=== PATIENT | female | born 1970 | race Caucasian/White ===

== ENCOUNTER 2023-02-26 17:46 | Inpatient (IN) ==
--- NOTE | 2023-02-26 18:52 | Emergency Department Note ---
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 Patient evidently was recently in rehab in the [facility]. Due to volume and acuity in the emergency room today unfortunately there was some wait until the patient could be evaluated in a treatment room. Evaluated the patient in room a 11 sister at bedside. Staff including security assisted with moving the patient from wheelchair to bed. Primary history from patient's sister who is with her. Sister reports the patient was since beginning January and [facility] rehab but they did not do a lot of rehab with her. Reportedly was ambulating with a cane but sent home a day or 2 ago and has been able to do much since then. Some increased edema of the legs reported. There is reported compliance with her medications including her blood thinners. Some dark discoloration to the bilateral lower legs is reported as well. Home health visited today and noted the patient had some increased respiratory issues at times and belly breathing and thus recommended she come to the ER for evaluation. Is not been to this hospital before. At times her breathing is okay other times not. Last several days has had a bit of cough or cold symptoms and was given a Z-Heriberto which she has been taking. There has been some COVID exposure at [facility] but evidently this was recently tested and -3 days ago. No falls reported. Some pain in the left foot knee although little bit in the right side to seems possibly more chronic. Again no trauma. PAST MEDICAL HISTORY: As noted above MEDICATIONS: Reviewed medication list the patient presents with from her recent stay and discharged from rehab in [place] SOCIAL HISTORY: Resides at home with support from sister PHYSICAL EXAM: GENERAL: alert and oriented in no acute distress on stretcher Head: Atraumatic with healed prior surgical signs EYES: No injection, discharge or icterus. NECK: Trachea midline. Supple. ENT: Mucous membranes pink and moist. LUNGS: Airway patent. No retractions. Breath sounds clear with good air entry bilaterally. HEART: Regular rate and rhythm. No chest wall tenderness ABDOMEN: Soft and non-tender, without guarding or rebound. SKIN: Acyanotic, warm, dry, without rashes EXTREMITIES: 2-3+ edema of the lower extremities with some slight reddish discoloration but no significant weeping noted. Some chronic healed surgical wounds to the left upper hand/arm NEUROLOGICAL: No focal deficits. No aphasia. No facial droop or slurred speech. Sensation to gross touch normal EK bpm normal sinus rhythm. No PVC or PAC. No acute ST segment elevation or depression with QTc of 454 CONTINUOUS CARDIAC MONITORING: was ordered and showed a heart rate of 80s bpm in normal sinus rhythm 1 view chest x-ray per my interpretation: Some cardiomegaly without pleural effusion but some mild pulmonary vascular congestion without pulmonary edema. No free air under the diaphragm. 2 view left foot x-ray per my interpretation: No evidence of fracture or dislocation 2 view left knee x-ray per my interpretation: No evidence of fracture or dislocation. Some soft tissue swelling Patient's laboratory studies and imaging reviewed. Differential includes Reactive airway disease, pneumonia, pneumothorax, COPD, CHF, infections, cardiac ischemia, pulmonary embolism, musculoskeletal, gastrointestinal, as well as other pathologies. IMPRESSION/MEDICAL DECISION MAKING: Patient with multiple medical problems. Here more with some breathing issues but not ambulating well and recent discharge from rehab. Does not sound like she can do well at home at this time without additional support but family and patient were concerned about the intermittent breathing issues. Not significantly hypoxic, febrile, or tachycardic upon arrival. Is on Eliquis and reported compliance lowers my suspicion for acute PE/VTE. Does have significant edema of the lower legs and with a history of CHF and use of Lasix and question more fluid overload. Does have some URI symptoms reported as well with recent exposure at the prior facility with COVID. Respiratory viral panel ordered. 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 Benign abdomen. Reported some pain in the left knee and foot but no significant trauma and x-rays obtained here but I doubt of traumatic etiology. No significant new focal neurological deficits reported. Chest x-ray possibly some pulmonary vascular congestion and cardiomegaly but no significant effusions or evidence of pneumonia or pneumothorax. Blood work here without significant leukocytosis. Mild anemia hemoglobin of 10 but unsure of exact baseline. Normal platelet count. No severe electrolyte abnormal signs of renal dysfunction. BNP not severely elevated. Troponin 3.1. No signs of hepatitis. Strep PCR negative. Respiratory viral panel returns negative for COVID and flu but positive for rhino/enterovirus. Likely explains her symptoms. Given these findings discussed with patient and family further care here. Given some additional Lasix to help with the leg edema but BNP not elevated and doubt this is truly CHF. Given evening dose of Vimpat. Discussion given her ambulatory dysfunction with increased weakness although not hypoxic will bring into the hospital for further care and likely need for placement. Hospitalist contacted. DIAGNOSIS: Shortness of breath, ambulatory dysfunction/weakness, leg swelling, rhino/enterovirus DISPOSITION: Hospitalist will evaluate Patient was agreeable with this plan. Past Med/Surg History Social History Smoking Status: Never smoker Feels Safe at Home: Yes Allergies Allergies Allergy/AdvReac Type Severity Reaction Status Date / Time Penicillins Allergy Unknown CAN'T Verified 02/26/23 21:00 REMEMBER phenytoin [From Dilantin] AdvReac Intermediate REALLY BAD Verified 02/26/23 21:00 HEADACHE Home Meds Home Medications Medication Instructions Recorded Confirmed acetaminophen 325 mg tablet 650 mg PO Q6H PRN PAIN/FEVER 02/26/23 02/26/23 (Tylenol) apixaban 5 mg tablet (Eliquis) 5 mg PO BID 02/26/23 02/26/23 aspirin 81 mg tablet,delayed 81 mg PO DAILY 02/26/23 02/26/23 release azithromycin 250 mg tablet 250 mg PO DAILY 02/26/23 02/26/23 folic acid 1 mg tablet 1 mg PO DAILY 02/26/23 02/26/23 furosemide 40 mg tablet 40 mg PO DAILY 02/26/23 02/26/23 lacosamide 100 mg tablet 100 mg PO BID 02/26/23 02/26/23 levothyroxine 25 mcg tablet 25 mcg PO DAILY 02/26/23 02/26/23 multivitamin 1 tab PO QAM 02/26/23 02/26/23 oxybutynin chloride 15 mg 15 mg PO DAILY 02/26/23 02/26/23 tablet,extended release 24 hr pantoprazole 40 mg tablet,delayed 40 mg PO DAILY 02/26/23 02/26/23 release potassium chloride 10 mEq 10 meq PO DAILY 02/26/23 02/26/23 capsule,extended release sennosides 8.6 mg tablet (Senokot) 17.2 mg PO HS 02/26/23 02/26/23 Results & Data (ED) Vital Signs Vital Signs - 24 hr 02/26/23 17:58 02/26/23 20:45 02/26/23 20:45 Temperature 36.4 C L Temperature Source Temporal Artery Scan Pulse Rate 94 H 87 87 Pulse Rhythm Regular Pulse Strength Normal Respiratory Rate 20 20 Respiratory Effort / Characteristics Non-Labored Spontaneous Respiratory Depth Normal Blood Pressure 127/77 133/84 Blood Pressure Mean 93 100 Pulse Oximetry 97 95 Oxygen Delivery Method Room Air Room Air Sepsis Recent Fever Within 48 Hours No Sepsis New/Unexplained Change in Mental Status No Sepsis Action Taken by Nursing No Action Required 02/26/23 21:00 02/26/23 21:05 02/26/23 21:05 Temperature Temperature Source Pulse Rate 87 Pulse Rhythm Pulse Strength Respiratory Rate 24 Respiratory Effort / Characteristics Respiratory Depth Blood Pressure Blood Pressure Mean Pulse Oximetry 95 96 96 Oxygen Delivery Method Room Air Room Air Room Air Sepsis Recent Fever Within 48 Hours Sepsis New/Unexplained Change in Mental Status Sepsis Action Taken by Nursing 02/26/23 21:27 02/26/23 21:30 02/26/23 22:00 Temperature Temperature Source Pulse Rate 84 86 83 Pulse Rhythm Pulse Strength Respiratory Rate 21 22 20 Respiratory Effort / Characteristics Respiratory Depth Blood Pressure 136/98 134/96 117/74 Blood Pressure Mean 110 108 88 Pulse Oximetry 95 92 93 Oxygen Delivery Method Room Air Room Air Room Air Sepsis Recent Fever Within 48 Hours Sepsis New/Unexplained Change in Mental Status Sepsis Action Taken by Nursing 02/26/23 22:00 02/26/23 22:30 02/26/23 23:00 Temperature Temperature Source Pulse Rate 86 82 Pulse Rhythm Pulse Strength Respiratory Rate 19 17 Respiratory Effort / Characteristics Respiratory Depth Blood Pressure 117/74 116/73 107/70 Blood Pressure Mean 101 87 82 Pulse Oximetry 93 94 Oxygen Delivery Method Room Air Room Air Sepsis Recent Fever Within 48 Hours Sepsis New/Unexplained Change in Mental Status Sepsis Action Taken by Nursing Laboratory Data 02/26/23 21:06 02/26/23 21:06 Lab Results 02/26/23 02/26/23 02/26/23 Range/Units 21:06 21:11 21:22 WBC 7.29 (4.8-10.8) K/ul RBC 3.94 L (4.20-5.40) M/uL Hgb 10.0 L (12.0-16.0) g/dl Hct 33.9 L (37.0-47.0) % MCV 86.0 (80.0-100.0) fL MCH 25.4 (25.0-34.0) pg MCHC 29.5 L (32.0-36.0) g/dL RDW Std Deviation 56.5 H (36.4-46.3) fL RDW Coeff of Neo 18.0 H (11.5-14.5) % Plt Count 303 (130-400) K/uL MPV 11.3 (9.4-12.4) fL Immature Gran % (Auto) 0.5 % Neut % (Auto) 69.0 % Lymph % (Auto) 23.5 % Hawkins % (Auto) 4.0 % Eos % (Auto) 2.7 % Baso % (Auto) 0.3 % Neut # (Auto) 5.03 (1.40-6.50) K/uL Lymph # (Auto) 1.71 (1.20-3.40) K/uL Hawkins # (Auto) 0.29 (0.11-0.59) K/uL Eos # (Auto) 0.20 (0.00-0.50) K/uL Baso # (Auto) 0.02 (0.00-0.20) K/uL Immature Gran # (Auto) 0.04 (0.01-0.20) K/uL PT 10.6 (9.0-12.0) Seconds INR 1.0 (0.9-1.1) Sodium 144 (136-145) mmol/L Potassium 3.6 (3.5-5.1) mmol/L Chloride 107 (98-107) mmol/L Carbon Dioxide 31 (21-32) mmol/L Anion Gap 6 (3-11) BUN 15 (6-23) mg/dl Creatinine 0.63 (0.6-1.2) mg/dl Est Cr Clr Drug Dosing Not Reportable Est GFR ( Amer) 117.9 ml/min Est GFR (Non-Af Amer) 101.7 ml/min BUN/Creatinine Ratio 23.8 H (10-20) Glucose 100 H (70-99(Fasting)) mg/dl Calcium 9.2 (8.6-10.3) mg/dl Magnesium 2.0 (1.7-2.4) mg/dl Total Bilirubin 0.4 (0.2-1.0) mg/dl AST 15 (13-39) U/L ALT 21 (7-52) U/L Alkaline Phosphatase 68 (34-104) U/L Troponin I High Sens 3.1 (0-14) pg/ml B-Natriuretic Peptide 12 (0-100) pg/ml Total Protein 7.7 (6.0-8.3) gm/dl Albumin 3.7 (3.4-5.0) gm/dl Globulin 4.0 (2.5-4.0) gm/dl Albumin/Globulin Ratio 0.9 (0.9-2) TSH 6.107 H (0.300-4.500) uIu/ml Free T4 1.00 (0.61-1.60) ng/dl Adenovirus (PCR) Not Detected (NotDetected) B. pertussis DNA (PCR) Not Detected (NotDetected) B.parapertussis DNA PCR Not Detected (NotDetected) C. pneumoniae DNA (PCR) Not Detected (NotDetected) Coronavirus OC43 (PCR) Not Detected (NotDetected) Coronavirus HKU1 (PCR) Not Detected (NotDetected) Coronavirus 229E (PCR) Not Detected (NotDetected) SARS-CoV-2 (PCR) Not Detected (NotDetected) Coronavirus NL63 (PCR) Not Detected (NotDetected) Human Metapneumovir PCR Not Detected (NotDetected) Influenza Type A (PCR) Not Detected (NotDetected) Influenza Type B (PCR) Not Detected (NotDetected) M. pneumoniae (PCR) Not Detected (NotDetected) Parainfluenza 1 (PCR) Not Detected (NotDetected) Parainfluenza 2 (PCR) Not Detected (NotDetected) Parainfluenza 3 (PCR) Not Detected (NotDetected) Parainfluenza 4 (PCR) Not Detected (NotDetected) RSV (PCR) Not Detected (NotDetected) Entero/Rhino (PCR) DETECTED A* (NotDetected) Group A Strep (PCR) NOT DETECTED (NotDetected) Administered Medications Discontinued Medications Lacosamide (Lacosamide 50 Mg Tablet) 100 mg PO ONCE ONE Stop: 02/26/23 22:19 Last Admin: 02/26/23 23:20 Dose: 100 mg Documented By: MARIELENA Discharge Plan Visit Data Chief Complaint: Weakness ED Provider: Bret Black Discharge Problem: Rhinovirus, Breathlessness, Leg swelling, Chronic anticoagulation, History of epilepsy, History of CHF (congestive heart failure), Ambulatory dysfunction Patient Disposition: Being Evaluated by Hospitalist Forms Stand Alone Forms: [facility] Prescriptions Prescriptions: No Action multivitamin Tablet 1 tab PO QAM furosemide 40 mg tablet 40 mg PO DAILY sennosides [Senokot] 8.6 mg Tablet 17.2 mg PO HS potassium chloride 10 mEq Capsule, Extended Release 10 meq PO DAILY acetaminophen [Tylenol] 325 mg Tablet 650 mg PO Q6H PRN (Reason: PAIN/FEVER) oxybutynin chloride 15 mg Tablet Extended Release 24hr 15 mg PO DAILY azithromycin 250 mg tablet 250 mg PO DAILY Rx Instructions: STARTED 02/22/23 FOR 6 DAYS. aspirin 81 mg Tablet,Delayed Release (Dr/Ec) 81 mg PO DAILY levothyroxine 25 mcg tablet 25 mcg PO DAILY pantoprazole 40 mg Tablet,Delayed Release (Dr/Ec) 40 mg PO DAILY folic acid 1 mg Tablet 1 mg PO DAILY lacosamide 100 mg tablet 100 mg PO BID Eliquis 5 mg Tablet 5 mg PO BID Referrals Referrals: PCP,NO [Physician] -
[2023-02-26 21:46] LABS: Basophils # (auto) 0.02 K/uL (0.00-0.20); Basophils % (auto) 0.3 %; Eosinophils % (auto) 2.7 %; Hematocrit (blood only) 33.9 % (37.0-47.0); Immature Granulocytes # (auto) 0.04 K/uL (0.01-0.20); Immature Granulocytes % (auto) 0.5 %; Lymphocytes # (auto) 1.71 K/uL (1.20-3.40); Lymphocytes % (auto) 23.5 %; Mean Corpuscular Hemoglobin 25.4 pg (25.0-34.0); Mean Corpuscular Hgb Conc 29.5 g/dL (32.0-36.0); Mean Platelet Volume 11.3 fL (9.4-12.4); Monocytes # (auto) 0.29 K/uL (0.11-0.59); Neutrophils # (auto) 5.03 K/uL (1.40-6.50); Platelet Count 303 K/uL (130-400); RDW Standard Deviation 56.5 fL (36.4-46.3); Red Blood Count 3.94 M/uL (4.20-5.40); White Blood Count 7.29 K/ul (4.8-10.8)
[2023-02-26 21:53] LABS: Alanine Aminotransferase 21 U/L (7-52); Albumin Globulin Ratio 0.9 (0.9-2); Albumin Level 3.7 gm/dl (3.4-5.0); Alkaline Phosphatase 68 U/L (34-104); Anion Gap 6 (3-11); Aspartate Aminotransferase 15 U/L (13-39); BUN Creatinine Ratio 23.8 (10-20); Bilirubin,Total 0.4 mg/dl (0.2-1.0); Blood Urea Nitrogen 15 mg/dl (6-23); Calcium 9.2 mg/dl (8.6-10.3); Carbon Dioxide 31 mmol/L (21-32); Chloride 107 mmol/L (98-107); Est GFR (African American) 117.9 ml/min; Est GFR (Non-African American) 101.7 ml/min; Glucose 100 mg/dl (70-99(Fasting)); Potassium 3.6 mmol/L (3.5-5.1); Sodium 144 mmol/L (136-145); Total Protein 7.7 gm/dl (6.0-8.3)
[2023-02-26 21:59] LABS: Troponin I High Sensitivity 3.1 pg/ml (0-14)
[2023-02-26 22:03] LABS: Prothrombin Time 10.6 Seconds (9.0-12.0)
[2023-02-26 22:08] LABS: Thyroid Stimulating Hormone 6.107 uIu/ml (0.300-4.500)
[2023-02-26] MEDS ORDERED: LACOSAMIDE 50 MG TABLET PO ONE (22:18)
[2023-02-26 22:37] LABS: Adenovirus PCR Not Detected (NotDetected); Bordetella parapertussis PCR Not Detected (NotDetected); Bordetella pertussis PCR Not Detected (NotDetected); Chlamydia pneumoniae PCR Not Detected (NotDetected); Coronavirus 229E PCR Not Detected (NotDetected); Coronavirus CoV-2 (COVID19)PCR Not Detected (NotDetected); Coronavirus HKU1 PCR Not Detected (NotDetected); Coronavirus NL63 PCR Not Detected (NotDetected); Coronavirus OC43PCR Not Detected (NotDetected); Human Metapneumovirus PCR Not Detected (NotDetected); Influenza A PCR Not Detected (NotDetected); Influenza B PCR Not Detected (NotDetected); Mycoplasma pneumoniae PCR Not Detected (NotDetected); Parainfluenza Virus 1 PCR Not Detected (NotDetected); Parainfluenza Virus 2 PCR Not Detected (NotDetected); Parainfluenza Virus 3 PCR Not Detected (NotDetected); Parainfluenza Virus 4 PCR Not Detected (NotDetected); Respiratory Syncytial VirusPCR Not Detected (NotDetected)
[2023-02-26 22:44] LABS: Rhinovirus/Enterovirus PCR DETECTED (NotDetected)
[2023-02-26] MEDS ORDERED: FUROSEMIDE 40 MG/4 ML VIAL IV ONE (23:23)
--- NOTE | 2023-02-27 00:53 | History & Physical Report ---
Date of Service February 27, 2023 Assessment & Plan (1) Shortness of breath: Plan: 52 year old female admitted for entero/rhinovirus, generalized weakness, possible fluid overload. -Patient with sore throat, increased shortness of breath since being in rehab fa cility, more pronounced past few days. -CBC with hgb 10.0 - unknown baseline - WBC count unremarkable. -CMP, PT/INR, troponin unremarkable. TSH 6.107, Free T4 WNL. -CXR without any overt pulmonary edema or acute signs of infection. -Has history of CHF according to record patient gave however patient without any recollection. -Will order echo to check for CHF. Likely current presentation may be combination of viral induced and fluid overload. -Given Lasix 40mg IV in the ER. Trend renal function panel to see if patient does well with diuresis. -Pt relayed had wheezing however not evident on physical exam - can trial duoneb if patient feels wheezing or short of breath. -Vitals have remained stable, continue to monitor. (2) Bilateral leg edema: Plan: -As above, history of congestive HF listed in patient's history on record sheet she brought in. -Bilateral lower extremities edematous but without pitting edema, may be secondary to chronic venous changes and lymphedema -Less likely infectious given bilateral distribution. -Given Lasix 40mg IV in the ER, aguilar catheter placed due to history of incontinence. Will continue qAM for now and see if patient improves. -Check echo. -Monitor I&O's. (3) Generalized weakness: Plan: -Patient recently in rehab, relayed discharged too soon due to insurance coverage issue. -Consulted PT/OT eval and treat. -Consulted case management to help with insurance clarity. (4) History of CHF (congestive heart failure): Plan: Same plan as above. Patient listed to take 40mg Lasix at home daily. (5) GERD without esophagitis: Plan: -Continue home pantoprazole. (6) Hypothyroidism: Plan: -continue home levothyroxine. (7) Chronic anticoagulation: Plan: -Continue home Eliquis for history of DVT. (8) Localization-related symptomatic epilepsy and epileptic syndromes with complex partial seizures, not intractable, without status epilepticus: Plan: -Continue home lacosamide. Plan F/E/N/GI: Heart healthy DVT: Eliquis Code status: Full Dispo: Telemetry. History of Present Illness Chief Complaint: Shortness of breath Primary Care Provider: Ilsa Braswell Cassy is a 52 year old female with past medical history of benign brain tumor s/p resection with seizures, VTE, hypothyroidism, CHF, GERD w/o esophagitis, generalized muscle weakness coming into the ER for shortness of breath, weakness, and leg swelling. Patient states that she was just at [facility] in [place] and while there had developed a sore throat and some increased difficulty with breathing. She was discharged from the rehab facility 2 days ago. She states that she was discharged when she lost her insurance coverage as she was not able to walk very well when discharged and could barely walk with a cane. The sore throat has persisted and she's had increased shortness of breath and some mild increase in swelling in the bilateral lower extremities. She usually wears compression stockings for these. She has not had any fevers, chills, chest pain, diarrhea, or dysuria. She does have a history of urinary incontinence. She denies any history of previous cardiac issues or lung disease. In the ER her Hgb is 10.0, WBC 7.29, CMP, PT, INR unremarkable. respiratory biofire was positive for entero/rhinovirus. CXR showed mild cardiomegaly, no acute processes in the lungs per my read. She was given a dose of Lasix 40mg IV in the ER as well as a dose of her Lacosamide anti-seizure medication. Allergies Allergy/AdvReac Type Severity Reaction Status Date / Time Penicillins Allergy Unknown CAN'T Verified 02/26/23 21:00 REMEMBER phenytoin [From Dilantin] AdvReac Intermediate REALLY BAD Verified 02/26/23 21:00 HEADACHE Home Medications Medication Instructions Recorded Confirmed Type acetaminophen 325 mg tablet 650 mg PO Q6H PRN PAIN/FEVER 02/26/23 02/26/23 History (Tylenol) apixaban 5 mg tablet (Eliquis) 5 mg PO BID 02/26/23 02/26/23 History aspirin 81 mg tablet,delayed 81 mg PO DAILY 02/26/23 02/26/23 History release azithromycin 250 mg tablet 250 mg PO DAILY 02/26/23 02/26/23 History folic acid 1 mg tablet 1 mg PO DAILY 02/26/23 02/26/23 History furosemide 40 mg tablet 40 mg PO DAILY 02/26/23 02/26/23 History lacosamide 100 mg tablet 100 mg PO BID 02/26/23 02/26/23 History levothyroxine 25 mcg tablet 25 mcg PO DAILY 02/26/23 02/26/23 History multivitamin 1 tab PO QAM 02/26/23 02/26/23 History oxybutynin chloride 15 mg 15 mg PO DAILY 02/26/23 02/26/23 History tablet,extended release 24 hr pantoprazole 40 mg tablet,delayed 40 mg PO DAILY 02/26/23 02/26/23 History release potassium chloride 10 mEq 10 meq PO DAILY 02/26/23 02/26/23 History capsule,extended release sennosides 8.6 mg tablet (Senokot) 17.2 mg PO HS 02/26/23 02/26/23 History Past Med/Surg History Social History Smoking Status: Never smoker Second Hand Exposure: No; Do You Dip or Chew Tobacco: No; Hx Alcohol Use: No Hx Substance Use: No Preferred Language: Swiss Communication Ability: Effective Residential Program Coordinator Required: No Beliefs That Will Affect Care: None Current Living Situation: Alone Feels Safe at Home: Yes Assistive Devices: Cane and Glasses Review of Systems Review of Systems: As per HPI. Physical Exam Constitutional: WD/WN, vitals as above Eyes: PERRL, conjunctivae normal, anicteric sclerae Respiratory: normal respiratory effort, lungs clear to auscultation Cardiovascular: Rate/Rhythm: regular rate and regular rhythm Heart Sounds: normal S1 and normal S2 Peripheral pulses 2+ bilaterally. No pitting edema however increased size of legs. Gastrointestinal (Abdomen): normal bowel sounds, soft, nontender, no hepatosplenomegaly Skin: erythema around bilateral legs below the shins to the ankles, appears chronic venous stasis changes although blanchable. Psychiatric: A+Ox3, euthymic affect Results & Data Results & Data Vital Signs (Past 12 Hours) Vital Signs Temp Pulse Resp BP Pulse Ox O2 Del Method 02/27/23 00:31 82 20 119/78 94 Room Air 02/27/23 00:00 85 24 131/80 02/26/23 23:30 84 23 123/84 02/26/23 23:00 82 17 107/70 94 Room Air 11/22/23 22:30 86 19 116/73 93 Room Air 02/26/23 22:00 117/74 02/26/23 22:00 83 20 117/74 93 Room Air 02/26/23 21:30 86 22 134/96 92 Room Air 02/26/23 21:27 84 21 136/98 95 Room Air 02/26/23 21:05 96 Room Air 02/26/23 21:05 96 Room Air 02/26/23 21:00 87 24 95 Room Air 02/26/23 20:45 87 20 133/84 95 Room Air 02/26/23 20:45 87 02/26/23 17:58 36.4 C L 94 H 20 127/77 97 Room Air Supervising Physician Co-Signing Physician Notes Attending addendum: I have physically seen this patient, have supervised the medical residents activities, and agree with the H&P unless as otherwise noted. Assessment and Plan: Shortness of breath/dyspnea on exertion/fluid overload- Status post recent admission at [facility] in [place] Was thought to have some fluid overload, and was given Lasix 40 mg IV in ED and Aguilar catheter was placed due to chronic urinary incontinence The patient will be admitted to telemetry for serial cardiac enzymes, serial EKG's, cardiac rhythm monitoring and a 2-D echocardiogram with Dopplers. Resume oral Lasix in the morning Symptoms are likely due to underlying general disability, and aggravation by enterovirus/rhinovirus infection General deconditioning and weakness- Consult PT/OT Would likely need referral to inpatient rehab Seizure disorder- Continue lacosamide DVT history- Continue apixaban Resident Activity Tracking Resident Involvement: Resident Care Provided Care Provided: Adult Hospital Medicine
[2023-02-27 01:34] LABS: Appearance Urine Clear (Clear); Bacteria Urine Automated Negative (Negative); Bilirubin Urine Negative (Negative); Blood Urine Negative (Negative); Color Urine Yellow; Epithelial Cell Urine Auto >30 /lpf (0-5); Glucose Urine UA Negative (Negative); Ketones Urine Negative (Negative); Leukocyte Esterase Urine Trace (Negative); Nitrite Urine Negative (Negative); Protein Urine Negative (Negative); RBC Urine Automated 0-4 /hpf (0-4); Specific Gravity Urine 1.021 (1.000-1.030); Urobilinogen Urine Negative (Negative)
[2023-02-27] MEDS ORDERED: ALBUT/IPRATROP 3MG/0.5MG NEB 3 ML VIAL NEB PRN (04:00)
[2023-02-27] MEDS ORDERED: ALBUTEROL 0.083% NEBU SOLN 3 ML VIAL NEB PRN (04:00)
[2023-02-27] MEDS ORDERED: ONDANSETRON INJ 2 MG/ML 2 ML VIAL IV PRN (04:00)
[2023-02-27] MEDS ORDERED: POLYETHYLENE (MIRALAX) 17 GM PACK PO PRN (04:00)
[2023-02-27 04:52] LABS: Basophils # (auto) 0.01 K/uL (0.00-0.20); Basophils % (auto) 0.1 %; Eosinophils # (auto) 0.24 K/uL (0.00-0.50); Eosinophils % (auto) 3.5 %; Hematocrit (blood only) 31.2 % (37.0-47.0); Hemoglobin 9.2 g/dl (12.0-16.0); Immature Granulocytes # (auto) 0.03 K/uL (0.01-0.20); Immature Granulocytes % (auto) 0.4 %; Lymphocytes # (auto) 1.89 K/uL (1.20-3.40); Lymphocytes % (auto) 27.8 %; Mean Corpuscular Hemoglobin 24.7 pg (25.0-34.0); Mean Corpuscular Hgb Conc 29.5 g/dL (32.0-36.0); Mean Corpuscular Volume 83.9 fL (80.0-100.0); Mean Platelet Volume 10.6 fL (9.4-12.4); Monocytes # (auto) 0.25 K/uL (0.11-0.59); Monocytes % (auto) 3.7 %; Neutrophils # (auto) 4.37 K/uL (1.40-6.50); Neutrophils % (auto) 64.5 %; Platelet Count 274 K/uL (130-400); RDW Coefficient of Variation 18.1 % (11.5-14.5); Red Blood Count 3.72 M/uL (4.20-5.40); White Blood Count 6.79 K/ul (4.8-10.8)
[2023-02-27] MEDS ORDERED: Patient's HEIGHT &/or WEIGHT Needed SCH (05:00)
[2023-02-27 05:04] LABS: Albumin Level 3.6 gm/dl (3.4-5.0); BUN Creatinine Ratio 24.2 (10-20); Calcium 9.3 mg/dl (8.6-10.3); Creatinine Clr Calc Pharmacy 120.9 ml/min; Est GFR (African American) 118.5 ml/min; Est GFR (Non-African American) 102.2 ml/min; Phosphorus 4.2 mg/dl (2.5-4.9); Potassium 3.3 mmol/L (3.5-5.1)
[2023-02-27] MEDS: LEVOTHYROXINE SODIUM 25 MCG TABLET PO SCH (07:07)
[2023-02-27] MEDS: OXYBUTYNIN CHLORIDE XL 5 MG TABCR PO SCH (08:50)
[2023-02-27] MEDS: ASPIRIN 81 MG ECTAB PO SCH (08:50)
[2023-02-27] MEDS: LACOSAMIDE 50 MG TABLET PO SCH ×2 (08:50→21:54)
--- NOTE | 2023-02-27 08:50 | XRay Report ---
XR chest 1V portable CLINICAL HISTORY: weak TECHNIQUE: Single frontal radiograph of the chest was obtained. Comparison: None available at the time of this dictation. FINDINGS: Exam is limited by underpenetration. Cardiomegaly is noted. The lungs are clear. No evidence of pleur al effusion or pneumothorax. IMPRESSION: No acute chest disease. ACT 112: Negative or not required by law. Electronically signed by: Mejia Moses M.D. 02/27/2023 8:49 AM
[2023-02-27] MEDS: APIXABAN 5 MG TABLET PO SCH ×2 (08:51→20:07)
[2023-02-27] MEDS: PANTOprazole 40 MG TAB PO SCH (08:51)
[2023-02-27] MEDS: POTASSIUM CHLORIDE 10 MEQ TABCR PO SCH (08:51)
[2023-02-27] MEDS: FOLIC ACID 1 MG TAB PO SCH (08:51)
[2023-02-27] MEDS ORDERED: POTASSIUM CHLORIDE CRTAB 20 MEQ TABCR PO STA (08:52)
[2023-02-27] MEDS ORDERED: FUROSEMIDE 40 MG/4 ML VIAL IV SCH (09:00)
[2023-02-27] MEDS ORDERED: LEVOTHYROXINE SODIUM 25 MCG TABLET PO SCH (09:00)
--- NOTE | 2023-02-27 09:23 | XRay Report ---
XR foot LT 2V CLINICAL HISTORY: pain TECHNIQUE: 3 views of the left foot were obtained. Comparison: None available at the time of this dictation. FINDINGS: No fractures are present. Degenerative changes are seen. Achilles and plantar enthesophytes are seen. Soft tissue swelling is seen about the foot. IMPRESSION: Degenerative changes without evidence of acute fracture. ACT 112: Negative or not required by law. Electronically signed by: Mejia Moses M.D. 02/27/2023 9:21 AM
--- NOTE | 2023-02-27 09:29 | XRay Report ---
XR knee LT 1 or 2V routine CLINICAL HISTORY: pain TECHNIQUE: 2 views of the left knee were obtained. Comparison: None available at the time of this dictation. FINDINGS: There is no evidence of an acute fracture. Joint spaces are well-preserved. No joint effusion is seen . A fabella is incidentally seen. IMPRESSION: No evidence of acute osseous injury. ACT 112: Negative or not required by law. Electronically signed by: Mejia oMses M.D. 02/27/2023 9:27 AM
--- NOTE | 2023-02-27 11:43 | Hospitalist Progress Note ---
Date of Service February 27, 2023 Assessment & Plan (1) Generalized weakness: Plan: 52 year old female admitted for entero/rhinovirus, generalized weakness, possible fluid overload. -Patient with fall at the beginning of month followed by hospitalization at [facility] and subsequent stay at rehab with allegedly early dismissal resulting in current deconditioning -Patient claims discharged too soon due to insurance coverage issue. -Will attempt to obtain recent records, order placed -Consulted PT/OT eval and treat. -Consulted case management to help with insurance clarity, based on my assessment, patient will require high-frequency physical therapy (2) Shortness of breath: Plan: -Patient with sore throat, increased shortness of breath since being in rehab facility, more pronounced past few days. -CBC with hgb 10.0 - unknown baseline - WBC count unremarkable. Hemoglobin did drop again to 9.1, Hemoccult all stools until stabilization -CMP, PT/INR, troponin unremarkable. TSH 6.107, Free T4 WNL. -CXR without any overt pulmonary edema or acute signs of infection. -Has history of CHF according to record patient gave however patient without any recollection, normal EF on echocardiogram done on 02/27/2023 -Given Lasix 40mg IV in the ER. Trend renal function panel to see if patient does well with diuresis. -Pt relayed had wheezing however not evident on physical exam - can trial duoneb if patient feels wheezing or short of breath. -Vitals have remained stable, continue to monitor. (3) Bilateral leg edema: Plan: -As above, history of congestive HF listed in patient's history on record sheet she brought in. -Bilateral lower extremities edematous but without pitting edema, may be secondary to chronic venous changes and lymphedema -Less likely infectious given bilateral distribution. -Given Lasix 40mg IV in the ER, aguilar catheter placed due to history of incontinence. Will continue qAM for now and see if patient improves. -Monitor I&O's. (4) History of CHF (congestive heart failure): Plan: Same plan as above. Patient listed to take 40mg Lasix at home daily. (5) GERD without esophagitis: Plan: -Continue home pantoprazole. (6) Hypothyroidism: Plan: -continue home levothyroxine. (7) Chronic anticoagulation: Plan: -Continue home Eliquis for history of DVT. (8) Localization-related symptomatic epilepsy and epileptic syndromes with complex partial seizures, not intractable, without status epilepticus: Plan: -Continue home lacosamide. Plan F/E/N/GI: Heart healthy DVT: Eliquis Code status: Full Dispo: med/tele consider downgrading to MedSurg as long as oxygen saturation remains acceptable Admission and Anticipated Discharge Date Admission Date: February 27, 2023 Supervising Physician Co-Signing Physician Notes I personally examined the patient and verified all cornell points of history and exam, discussed case, and agree with decision making with Dr Lan sleeping does not stir to voice. no new issues identified. case d/w resident physician. seen in f/u from early AM admit weakness/deconditionging viral URI - for reahb Subjective Patient seen at bedside this morning. No acute events reported overnight. Patient feels weak and fatigued as to what she complained of when she came here. Shortness of breath improved. Denies any nausea or vomiting or difficulty with eating. No other complaints at this time. She describes to me her baseline at home is independent ADLs and she lives alone. 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 Review of Systems Review of Systems: All systems reviewed & are unremarkable except as noted in HPI & below Physical Exam Constitutional: WD/WN, vitals as above Eyes: + anicteric sclerae Neck: trachea midline and + thick neck Respiratory: normal respiratory effort, lungs clear to auscultation Cardiovascular: Rate/Rhythm: regular rate and regular rhythm Extremities: + edema Gastrointestinal (Abdomen): normal bowel sounds, soft, nontender, no hepatosplenomegaly Musculoskeletal: Head/Neck/Chest: head atraumatic Skin: no rashes, warm and dry Neurologic: awake Left-sided weakness noted. Psychiatric: A+Ox3, euthymic affect Results & Data Results & Data Vital Signs (Past 12 Hours) Vital Signs Temp Pulse Pulse Resp BP BP Pulse Ox 02/27/23 11:03 36.8 C 82 19 133/91 95 02/27/23 11:03 02/27/23 07:42 79 02/27/23 04:00 36.4 C L 78 18 114/86 97 02/27/23 04:00 02/27/23 02:30 83 20 130/68 93 02/27/23 02:00 86 23 139/111 H 92 02/27/23 01:30 84 17 134/101 H 95 02/27/23 01:09 81 02/27/23 01:00 85 15 120/83 02/27/23 00:31 82 20 119/78 94 02/27/23 00:00 85 24 131/80 Pulse Ox O2 Del Method O2 Del Method 02/27/23 11:03 Room Air 02/27/23 11:03 95 Room Air 02/27/23 07:42 02/27/23 04:00 Room Air 02/27/23 04:00 97 Room Air 02/27/23 02:30 Room Air 02/27/23 02:00 Room Air 02/27/23 01:30 Room Air 02/27/23 01:09 02/27/23 01:00 02/27/23 00:31 Room Air 02/27/23 00:00
--- NOTE | 2023-02-27 12:27 | XCELERA ---
[id number] [id number]
--- NOTE | 2023-02-27 12:54 | Electrocardiogram Report ---
Test Reason : Blood Pressure : / mmHG Vent. Rate : 087 BPM Atrial Rate : 087 BPM P-R Int : 150 ms QRS Dur : 080 ms QT Int : 378 ms P-R-T Axes : 005 038 024 degrees QTc Int : 454 ms Normal sinus rhythm Normal ECG No previous ECGs available Confirmed by Blake Ye ([id number]) on 02/27/2023 12:54:38 PM Referred By: REFERRED SELF Confirmed By:Blake Ye
--- NOTE | 2023-02-27 19:51 | Billing Data ---
Date of Service February 27, 2023 Coding Level of Care Code 61606 INT INP/OBS CARE
[2023-02-27] MEDS: SENNA 8.6 MG TAB PO SCH (21:54)
[2023-02-28] MEDS: LEVOTHYROXINE SODIUM 25 MCG TABLET PO SCH (06:00)
--- NOTE | 2023-02-28 07:59 | Hospitalist Progress Note ---
Date of Service February 28, 2023 Assessment & Plan (1) Generalized weakness: Plan: 52 year old female admitted for entero/rhinovirus, generalized weakness, possible fluid overload. -Patient with fall at the beginning of month followed by hospitalization at [facility] and subsequent stay at rehab with allegedly early dismissal resulting in current deconditioning -Patient claims discharged too soon due to insurance coverage issue. -Will attempt to obtain recent records, order placed -Consulted PT/OT eval and treat. -Consulted case management to help with insurance clarity, will likely require further rehab (2) Shortness of breath: Plan: -Patient with sore throat, increased shortness of breath since being in rehab facility, more pronounced past few days. -CBC with hgb 10.0 - unknown baseline - WBC count unremarkable. -CMP, PT/INR, troponin unremarkable. TSH 6.107, Free T4 WNL. -CXR without any overt pulmonary edema or acute signs of infection. -Has history of CHF according to record patient gave however patient without any recollection, normal EF on echocardiogram done on 02/27/2023 -Given Lasix 40mg IV in the ER; appears euvolemic defer further diuresis at this time -Pt relayed had wheezing however not evident on physical exam - can trial duoneb if patient feels wheezing or short of breath. -Vitals have remained stable, continue to monitor. (3) Bilateral leg edema: Plan: -As above, history of congestive HF listed in patient's history on record sheet she brought in. -Bilateral lower extremities edematous but without pitting edema, may be secondary to chronic venous changes and lymphedema -Less likely infectious given bilateral distribution. - aguilar catheter placed due to history of incontinence; plan to remove today -Monitor I&O's. (4) History of CHF (congestive heart failure): Plan: Same plan as above. Patient listed to take 40mg Lasix at home daily. (5) GERD without esophagitis: Plan: -Continue home pantoprazole. (6) Hypothyroidism: Plan: -continue home levothyroxine. (7) Chronic anticoagulation: Plan: -Continue home Eliquis for history of DVT. (8) Localization-related symptomatic epilepsy and epileptic syndromes with complex partial seizures, not intractable, without status epilepticus: Plan: -Continue home lacosamide. Plan F/E/N/GI: Heart healthy DVT: Eliquis Code status: Full Admission and Anticipated Discharge Date Admission Date: February 27, 2023 Supervising Physician Co-Signing Physician Notes I personally examined the patient and verified all cornell points of history and exam, discussed case, and agree with decision making with Dr Trejo Feels a little bit wheezy but otherwise no complaints. Awaiting PT/OT, definitely feels like she needs further rehab. Vitals noted, in general she is awake and alert pleasant no distress. HEENT normocephalic atraumatic mucous membranes moist. Breathing unlabored no accessory muscle use good effort. Skin shows no rashes no pallor or icterus. Neuro without focal deficits. Weakness/deconditioningPT/OT eval and treat, agree likely need rehab again Viral URIoverall stable, symptomatic, but vitals are good and breathing is unlaboredsupportive care. Subjective Pt seen at bedside this morning. No events overnight. Notes increased weakness and inability to care for herself at home. Per pt she refused labs this morning as she is a "hard stick". Review of Systems Review of Systems: As per above Physical Exam Physical Exam: Constitutional: well-appearing, no acute distress HEENT: NCAT, no conjunctival injection CV: regular rhythm, no murmur appreciated, extremities well-perfused Resp: CTABL, no wheezes/rales/rhonchi appreciated, no increased work of breathing MSK: no gross deformities appreciated Skin: warm, dry, no rash appreciated Neuro: alert, oriented, no focal neurologic deficit appreciated Results & Data Results & Data Vital Signs (Past 12 Hours) Vital Signs Temp Pulse Pulse Resp BP Pulse Ox O2 Del Method 02/28/23 07:46 36.8 C 74 14 143/85 H 93 Room Air 02/28/23 04:38 36.5 C 73 20 129/84 96 Nasal Cannula 02/27/23 23:00 36.6 C 78 18 130/84 96 Room Air 02/27/23 22:43 79 O2 Flow Rate 02/28/23 07:46 02/28/23 04:38 2 02/27/23 23:00 02/27/23 22:43 Resident Activity Tracking Resident Involvement: Resident Care Provided Care Provided: Adult Hospital Medicine
[2023-02-28] MEDS: ASPIRIN 81 MG ECTAB PO SCH (08:07)
[2023-02-28] MEDS: PANTOprazole 40 MG TAB PO SCH (08:07)
[2023-02-28] MEDS: APIXABAN 5 MG TABLET PO SCH ×2 (08:07→20:46)
[2023-02-28] MEDS: OXYBUTYNIN CHLORIDE XL 5 MG TABCR PO SCH (08:07)
[2023-02-28] MEDS: POTASSIUM CHLORIDE 10 MEQ TABCR PO SCH (08:07)
[2023-02-28] MEDS: FOLIC ACID 1 MG TAB PO SCH (08:08)
[2023-02-28] MEDS: LACOSAMIDE 50 MG TABLET PO SCH ×2 (13:16→20:45)
--- NOTE | 2023-02-28 13:17 | Billing Data ---
Date of Service February 28, 2023 Coding Level of Care Code 08313 SUB INP/OBS CARE
[2023-02-28] MEDS: SENNA 8.6 MG TAB PO SCH (20:46)
[2023-03-01] MEDS: LEVOTHYROXINE SODIUM 25 MCG TABLET PO SCH (06:39)
--- NOTE | 2023-03-01 07:09 | Hospitalist Progress Note ---
Date of Service March 01, 2023 Assessment & Plan (1) Generalized weakness: Plan: 52 year old female admitted for entero/rhinovirus, generalized weakness, deconditioning. -Patient with fall at the beginning of month followed by hospitalization at [facility] and subsequent stay at rehab with allegedly early dismissal resulting in current deconditioning -Patient claims discharged too soon due to insurance coverage issue. -Will attempt to obtain recent records, order placed -Consulted PT/OT eval and treat. Recommending rehab. (2) Bilateral leg edema: Plan: -Has history of CHF according to record patient gave however patient without any recollection, normal EF on echocardiogram done on 02/27/2023 -Given Lasix 40mg IV in the ER; appears euvolemic defer further diuresis at this time - No signs of hypervolemia, concern for chronic venous stasis - Will hold home diuretic and continue to follow clinically (3) History of CHF (congestive heart failure): Plan: Same plan as above. Patient listed to take 40mg Lasix at home daily. (4) GERD without esophagitis: Plan: -Continue home pantoprazole. (5) Hypothyroidism: Plan: -continue home levothyroxine. (6) Chronic anticoagulation: Plan: -Continue home Eliquis for history of DVT. (7) Localization-related symptomatic epilepsy and epileptic syndromes with complex partial seizures, not intractable, without status epilepticus: Plan: -Continue home lacosamide. Plan F/E/N/GI: Heart healthy DVT: Eliquis Code status: Full Admission and Anticipated Discharge Date Admission Date: February 27, 2023 Supervising Physician Co-Signing Physician Notes I personally examined the patient and verified all cornell points of history and exam, discussed case, and agree with decision making with Dr Trejo About to work with PT whenever I see her. No physical complaints, just wonders if she could wear a brief when in bed but compromises on PureWick, and would like to be able to wear her bra, which I discussed would be absolutely fine with me. Vitals noted, in general she is awake and alert pleasant no distress. HEENT normocephalic atraumatic mucous membranes moist. Breathing unlabored no accessory muscle use good effort. Skin shows no rashes no pallor or icterus. Neuro without focal deficits. Weakness/deconditioningPT/OT eval and treat, agree likely need rehab again, case management working on this Viral URIoverall stable, symptomatic, but vitals are good and breathing is unlaboredsupportive care. Subjective Doing well this morning. No new complaints. Awaiting rehab placement. Review of Systems Review of Systems: As per above Physical Exam Physical Exam: Constitutional: well-appearing, no acute distress HEENT: NCAT, no conjunctival injection CV: regular rhythm, no murmur appreciated, extremities well-perfused Resp: CTABL, no wheezes/rales/rhonchi appreciated, no increased work of breathing MSK: no gross deformities appreciated Skin: warm, dry, no rash appreciated Neuro: alert, oriented, no focal neurologic deficit appreciated Results & Data Results & Data Vital Signs (Past 12 Hours) Vital Signs Temp Pulse Pulse Resp BP Pulse Ox O2 Del Method 03/01/23 03:12 36.7 C 71 18 143/79 H 96 Room Air 02/28/23 23:23 36.4 C L 68 18 129/82 94 Room Air 02/28/23 22:57 82 02/28/23 21:12 36.3 C L 73 18 140/85 93 Room Air Resident Activity Tracking Resident Involvement: Resident Care Provided Care Provided: Adult Hospital Medicine
[2023-03-01] MEDS: ASPIRIN 81 MG ECTAB PO SCH (08:38)
[2023-03-01] MEDS: OXYBUTYNIN CHLORIDE XL 5 MG TABCR PO SCH (08:38)
[2023-03-01] MEDS: FOLIC ACID 1 MG TAB PO SCH (08:38)
[2023-03-01] MEDS: APIXABAN 5 MG TABLET PO SCH ×2 (08:38→20:06)
[2023-03-01] MEDS: PANTOprazole 40 MG TAB PO SCH (08:38)
[2023-03-01] MEDS: POTASSIUM CHLORIDE 10 MEQ TABCR PO SCH (08:43)
[2023-03-01] MEDS: ACETAMINOPHEN 325 MG TAB PO PRN (10:51)
[2023-03-01] MEDS: LACOSAMIDE 50 MG TABLET PO SCH ×2 (10:51→20:06)
--- NOTE | 2023-03-01 13:29 | Billing Data ---
Date of Service March 01, 2023 Coding Level of Care Code 83078 SUB INP/OBS CARE
[2023-03-01] MEDS: SENNA 8.6 MG TAB PO SCH (20:06)
[2023-03-02] MEDS: LEVOTHYROXINE SODIUM 25 MCG TABLET PO SCH (05:42)
--- NOTE | 2023-03-02 06:55 | Hospitalist Progress Note ---
Date of Service March 02, 2023 Assessment & Plan (1) Generalized weakness: Plan: 52 year old female admitted for entero/rhinovirus, generalized weakness, deconditioning. -Patient with fall at the beginning of month followed by hospitalization at [facility] and subsequent stay at rehab with allegedly early dismissal resulting in current deconditioning -Patient claims discharged too soon due to insurance coverage issue. -Will attempt to obtain recent records, order placed -Consulted PT/OT eval and treat. Recommending rehab. (2) Bilateral leg edema: Plan: -Has history of CHF according to record patient gave however patient without any recollection, normal EF on echocardiogram done on 02/27/2023 -Given Lasix 40mg IV in the ER; appears euvolemic defer further diuresis at this time - No signs of hypervolemia, concern for chronic venous stasis - Will hold home diuretic and continue to follow clinically (3) History of CHF (congestive heart failure): Plan: Same plan as above. Patient listed to take 40mg Lasix at home daily. (4) GERD without esophagitis: Plan: -Continue home pantoprazole. (5) Hypothyroidism: Plan: -continue home levothyroxine. (6) Chronic anticoagulation: Plan: -Continue home Eliquis for history of DVT. (7) Localization-related symptomatic epilepsy and epileptic syndromes with complex partial seizures, not intractable, without status epilepticus: Plan: -Continue home lacosamide. Plan F/E/N/GI: Heart healthy DVT: Eliquis Code status: Full Dispo: Medically stable, pending rehab placement Admission and Anticipated Discharge Date Admission Date: February 27, 2023 Supervising Physician Co-Signing Physician Notes I personally examined the patient and verified all cornell points of history and exam, discussed case, and agree with decision making with Dr Trejo no new issues. She reiterates that her insurance company told her that they would approve another 100 rehab days. Vitals noted, in general she is awake and alert pleasant no distress. HEENT normocephalic atraumatic mucous membranes moist. Breathing unlabored no accessory muscle use good effort. Skin shows no rashes no pallor or icterus. Neuro without focal deficits. Weakness/deconditioningPT/OT eval and treat, agree likely need rehab again, case management working on this, hopefully this will be approved tomorrow Viral URIoverall stable, symptomatic, but vitals are good and breathing is unlaboredsupportive care. Subjective Pt seen at bedside this morning. Anxious to get to rehab. States that she spoke to her insurance yesterday and they told her she is covered for a total of 100 rehab days per year. Review of Systems Review of Systems: As per above Physical Exam Physical Exam: Constitutional: well-appearing, no acute distress HEENT: NCAT, no conjunctival injection CV: regular rhythm, no murmur appreciated, extremities well-perfused. Venous stasis dermatitis. +1 pitting edema B/L LE Resp: CTABL, no wheezes/rales/rhonchi appreciated, no increased work of breathing MSK: no gross deformities appreciated Skin: warm, dry, no rash appreciated Neuro: alert, oriented, no focal neurologic deficit appreciated Results & Data Results & Data Vital Signs (Past 12 Hours) Vital Signs Temp Pulse Resp BP Pulse Ox O2 Del Method 03/01/23 23:18 36.5 C 79 18 137/82 97 Room Air 03/01/23 19:22 Room Air Resident Activity Tracking Resident Involvement: Resident Care Provided Care Provided: Adult Hospital Medicine
[2023-03-02] MEDS: LACOSAMIDE 50 MG TABLET PO SCH ×2 (10:31→20:43)
[2023-03-02] MEDS: OXYBUTYNIN CHLORIDE XL 5 MG TABCR PO SCH (10:32)
[2023-03-02] MEDS: ASPIRIN 81 MG ECTAB PO SCH (10:32)
[2023-03-02] MEDS: PANTOprazole 40 MG TAB PO SCH (10:32)
[2023-03-02] MEDS: FOLIC ACID 1 MG TAB PO SCH (10:32)
[2023-03-02] MEDS: APIXABAN 5 MG TABLET PO SCH ×2 (10:32→20:42)
[2023-03-02] MEDS: POTASSIUM CHLORIDE 10 MEQ TABCR PO SCH (11:00)
[2023-03-02 13:34] LABS: Hematocrit (blood only) 35.7 % (37.0-47.0); Hemoglobin 10.5 g/dl (12.0-16.0); Mean Corpuscular Hemoglobin 24.7 pg (25.0-34.0); Mean Corpuscular Hgb Conc 29.4 g/dL (32.0-36.0); Mean Platelet Volume 11.2 fL (9.4-12.4); Platelet Count 246 K/uL (130-400); RDW Coefficient of Variation 18.1 % (11.5-14.5); RDW Standard Deviation 54.8 fL (36.4-46.3); Red Blood Count 4.25 M/uL (4.20-5.40)
[2023-03-02 13:45] LABS: BUN Creatinine Ratio 19.4 (10-20); Calcium 9.8 mg/dl (8.6-10.3); Creatinine Clr Calc Pharmacy 121.7 ml/min; Est GFR (African American) 118.5 ml/min; Est GFR (Non-African American) 102.2 ml/min; Magnesium 1.9 mg/dl (1.7-2.4); Potassium 3.9 mmol/L (3.5-5.1)
--- NOTE | 2023-03-02 18:24 | Billing Data ---
Date of Service March 02, 2023 Coding Level of Care Code 12644 SUB INP/OBS CARE
[2023-03-02] MEDS: ACETAMINOPHEN 325 MG TAB PO PRN (20:42)
[2023-03-02] MEDS: SENNA 8.6 MG TAB PO SCH (20:42)
[2023-03-03] MEDS: LEVOTHYROXINE SODIUM 25 MCG TABLET PO SCH (06:33)
[2023-03-03] MEDS: OXYBUTYNIN CHLORIDE XL 5 MG TABCR PO SCH (08:32)
[2023-03-03] MEDS: PANTOprazole 40 MG TAB PO SCH (08:32)
[2023-03-03] MEDS: APIXABAN 5 MG TABLET PO SCH ×2 (08:32→21:09)
[2023-03-03] MEDS: LACOSAMIDE 50 MG TABLET PO SCH ×2 (08:33→21:56)
[2023-03-03] MEDS: FOLIC ACID 1 MG TAB PO SCH (08:33)
[2023-03-03] MEDS: ASPIRIN 81 MG ECTAB PO SCH (08:33)
[2023-03-03] MEDS: POTASSIUM CHLORIDE 10 MEQ TABCR PO SCH (08:38)
--- NOTE | 2023-03-03 09:16 | Hospitalist Progress Note ---
Date of Service March 03, 2023 Assessment & Plan (1) Generalized weakness: Plan: 52 year old female admitted for entero/rhinovirus, generalized weakness, deconditioning. -Patient with fall at the beginning of month followed by hospitalization at [facility] and subsequent stay at rehab with allegedly early dismissal resulting in current deconditioning -Patient claims discharged too soon due to insurance coverage issue. -Will attempt to obtain recent records, order placed -Consulted PT/OT eval and treat. Recommending rehab. (2) Bilateral leg edema: Plan: -Has history of CHF according to record patient gave however patient without any recollection, normal EF on echocardiogram done on 02/27/2023 -Given Lasix 40mg IV in the ER; appears euvolemic - Concern for chronic venous stasis and dieresis of chronic venous stasis - Creatine stable, plan to resume home Lasix dosing (3) History of CHF (congestive heart failure): Plan: Same plan as above. Patient listed to take 40mg Lasix at home daily. (4) GERD without esophagitis: Plan: -Continue home pantoprazole. (5) Hypothyroidism: Plan: -continue home levothyroxine. (6) Chronic anticoagulation: Plan: -Continue home Eliquis for history of DVT. (7) Localization-related symptomatic epilepsy and epileptic syndromes with complex partial seizures, not intractable, without status epilepticus: Plan: -Continue home lacosamide. Plan F/E/N/GI: Heart healthy DVT: Eliquis Code status: Full Dispo: Medically stable, pending rehab placement Admission and Anticipated Discharge Date Admission Date: February 27, 2023 Supervising Physician Co-Signing Physician Notes I also saw the patient and confirmed cornell portions of the clinical history and physical exam. I agree the impression and plan as noted in Dr. Trejo's documentation above. Upon our mid afternoon visit, the patient was without complaints. Vital signs reviewed; remains afebrile. 133/88, 78, 16 HEENT unremarkable Heart regular rate and rhythm Respirations are nonlabored Weakness/deconditioning PT/OT evaluation recommend acute rehabilitation Case management working on this Patient is hopeful for approval/placement in the near future Viral URI Continue symptomatic care Subjective Pt seen at bedside this morning. Doing well no complaints. Anxious for rehab placement. Review of Systems Review of Systems: As per above Physical Exam Physical Exam: Constitutional: well-appearing, no acute distress HEENT: NCAT, no conjunctival injection CV: regular rhythm, no murmur appreciated, extremities well-perfused. Venous stasis dermatitis. +1 pitting edema B/L LE Resp: CTABL, no wheezes/rales/rhonchi appreciated, no increased work of breathing MSK: no gross deformities appreciated Skin: warm, dry, no rash appreciated Neuro: alert, oriented, no focal neurologic deficit appreciated Results & Data Results & Data Vital Signs (Past 12 Hours) Vital Signs Temp Pulse Resp BP Pulse Ox O2 Del Method 03/03/23 08:11 36.4 C L 78 16 133/68 94 Room Air 03/03/23 02:07 36.7 C 70 20 125/69 94 Room Air 03/02/23 22:00 36.5 C 70 20 163/78 H 97 Room Air
[2023-03-03] MEDS: SENNA 8.6 MG TAB PO SCH (21:08)
[2023-03-04] MEDS: LEVOTHYROXINE SODIUM 25 MCG TABLET PO SCH (06:02)
--- NOTE | 2023-03-04 06:52 | Hospitalist Progress Note ---
Date of Service March 04, 2023 Assessment & Plan (1) Generalized weakness: Plan: 52 year old female admitted for entero/rhinovirus, generalized weakness, deconditioning. -Patient with fall at the beginning of month followed by hospitalization at [facility] and subsequent stay at rehab with allegedly early dismissal resulting in current deconditioning -Patient claims discharged too soon due to insurance coverage issue. -Will attempt to obtain recent records, order placed -Consulted PT/OT eval and treat. Recommending rehab. (2) Bilateral leg edema: Plan: -Has history of CHF according to record patient gave however patient without any recollection, normal EF on echocardiogram done on 02/27/2023 -Given Lasix 40mg IV in the ER; appears euvolemic - Concern for chronic venous stasis and dieresis of chronic venous stasis - Creatine stable, continue home Lasix dosing (3) History of CHF (congestive heart failure): Plan: Same plan as above. Patient listed to take 40mg Lasix at home daily. (4) GERD without esophagitis: Plan: -Continue home pantoprazole. (5) Hypothyroidism: Plan: -continue home levothyroxine. (6) Chronic anticoagulation: Plan: -Continue home Eliquis for history of DVT. (7) Localization-related symptomatic epilepsy and epileptic syndromes with complex partial seizures, not intractable, without status epilepticus: Plan: -Continue home lacosamide. (8) Normocytic anemia: Plan: - Hemoglobin stable at 10 - prior records for comparison - no signs of acute bleed Plan F/E/N/GI: Heart healthy DVT: Eliquis Code status: Full Dispo: Medically stable, pending rehab placement Admission and Anticipated Discharge Date Admission Date: February 27, 2023 Supervising Physician Co-Signing Physician Notes Attending attestation Pt seen and examined in concert with Dr. Trejo. In agreement with the documented findings as noted in the resident documentation with any exceptions or additions as noted here. No complaints at present, engaged with PT. On examination, S1/S2 nl RRR no MCG. CTAB. Abd NT/ND BS+ve VS: 120/71, 73, 16, 36.6C, 96% RA Weakness/deconditioning: PT/OT consult appreciated. Pending placement. Anemia, chronic - stable at last hgb. Ascertain previous w/u Else see resident documentation as noted. Subjective Cassy is doing well this morning. Denies upper respiratory symptoms. Anxious to get to rehab. Review of Systems Review of Systems: As per above Physical Exam Physical Exam: Constitutional: well-appearing, no acute distress HEENT: NCAT, no conjunctival injection CV: regular rhythm, no murmur appreciated, extremities well-perfused. Venous stasis dermatitis. +1 pitting edema B/L LE Resp: CTABL, no wheezes/rales/rhonchi appreciated, no increased work of breathin g MSK: no gross deformities appreciated Skin: warm, dry, no rash appreciated Neuro: alert, oriented, no focal neurologic deficit appreciated Results & Data Results & Data Vital Signs (Past 12 Hours) Vital Signs Temp Pulse Resp BP Pulse Ox O2 Del Method 03/03/23 22:35 36.6 C 73 18 142/71 H 98 Room Air 03/03/23 19:40 Room Air Resident Activity Tracking Resident Involvement: Resident Care Provided Care Provided: Adult Hospital Medicine
[2023-03-04] MEDS: LACOSAMIDE 50 MG TABLET PO SCH ×2 (08:09→20:52)
[2023-03-04] MEDS: FUROSEMIDE 40 MG TAB PO SCH (08:09)
[2023-03-04] MEDS: APIXABAN 5 MG TABLET PO SCH ×2 (08:10→20:52)
[2023-03-04] MEDS: OXYBUTYNIN CHLORIDE XL 5 MG TABCR PO SCH (08:10)
[2023-03-04] MEDS: ASPIRIN 81 MG ECTAB PO SCH (08:10)
[2023-03-04] MEDS: FOLIC ACID 1 MG TAB PO SCH (08:10)
[2023-03-04] MEDS: PANTOprazole 40 MG TAB PO SCH (08:10)
[2023-03-04] MEDS: POTASSIUM CHLORIDE 10 MEQ TABCR PO SCH (08:15)
[2023-03-04] MEDS: ACETAMINOPHEN 325 MG TAB PO PRN (19:21)
[2023-03-04] MEDS: SENNA 8.6 MG TAB PO SCH (20:51)
[2023-03-05] MEDS: LEVOTHYROXINE SODIUM 25 MCG TABLET PO SCH (06:01)
--- NOTE | 2023-03-05 07:26 | Hospitalist Progress Note ---
Date of Service March 05, 2023 Assessment & Plan (1) Generalized weakness: Plan: 52 year old female admitted for entero/rhinovirus, generalized weakness, deconditioning. -Patient with fall at the beginning of month followed by hospitalization at [facility] and subsequent stay at rehab with allegedly early dismissal resulting in current deconditioning -Patient claims discharged too soon due to insurance coverage issue. -Will attempt to obtain recent records, order placed -Consulted PT/OT eval and treat. Recommending rehab; insurance declined. Family appeal in process. Willing to go to SNF if not approved. (2) Bilateral leg edema: Plan: -Has history of CHF according to record patient gave however patient without any recollection, normal EF on echocardiogram done on 02/27/2023 -Given Lasix 40mg IV in the ER; appears euvolemic - Concern for chronic venous stasis and dieresis of chronic venous stasis - Creatine stable, continue home Lasix dosing (3) History of CHF (congestive heart failure): Plan: Same plan as above. Patient listed to take 40mg Lasix at home daily. (4) GERD without esophagitis: Plan: -Continue home pantoprazole. (5) Hypothyroidism: Plan: -continue home levothyroxine. (6) Chronic anticoagulation: Plan: -Continue home Eliquis for history of DVT. (7) Localization-related symptomatic epilepsy and epileptic syndromes with complex partial seizures, not intractable, without status epilepticus: Plan: -Continue home lacosamide. (8) Normocytic anemia: Plan: - Hemoglobin stable at 10 - prior records for comparison - no signs of acute bleed Plan F/E/N/GI: Heart healthy DVT: Eliquis Code status: Full Dispo: Medically stable, pending rehab vs SNF placement Admission and Anticipated Discharge Date Admission Date: February 27, 2023 Supervising Physician Co-Signing Physician Notes Attending attestation Pt seen and examined in concert with Dr. Trejo. In agreement with the documented findings as noted in the resident documentation with any exceptions or additions as noted here. No complaints at present, engaged with PT. On examination, S1/S2 nl RRR no MCG. CTAB. Abd NT/ND BS+ve VS: 120/71, 73, 16, 36.6C, 96% RA Weakness/deconditioning: PT/OT consult appreciated. Pending placement. Encouraged openness to SNF if rehab denied by insurance. Anemia, chronic - stable at last hgb Else see resident documentation as noted. Subjective Pt doing well this morning. Doing well. Discussed that she is in the process of family appeal for [facility]. Talked about need for back up plan and pt seemed somewhat ammendable to SNF. Review of Systems Review of Systems: As per above Physical Exam Physical Exam: Constitutional: well-appearing, no acute distress HEENT: NCAT, no conjunctival injection CV: regular rhythm, no murmur appreciated, extremities well-perfused. Venous stasis dermatitis. +1 pitting edema B/L LE Resp: CTABL, no wheezes/rales/rhonchi appreciated, no increased work of breathing MSK: no gross deformities appreciated Skin: warm, dry, no rash appreciated Neuro: alert, oriented, no focal neurologic deficit appreciated Results & Data Results & Data Vital Signs (Past 12 Hours) Vital Signs Temp Pulse Resp BP Pulse Ox O2 Del Method 03/04/23 21:46 36.5 C 71 18 147/80 H 96 Room Air 03/04/23 19:25 Room Air Resident Activity Tracking Resident Involvement: Resident Care Provided Care Provided: Adult Hospital Medicine
[2023-03-05] MEDS: FOLIC ACID 1 MG TAB PO SCH (09:24)
[2023-03-05] MEDS: PANTOprazole 40 MG TAB PO SCH (09:24)
[2023-03-05] MEDS: APIXABAN 5 MG TABLET PO SCH ×2 (09:24→21:40)
[2023-03-05] MEDS: FUROSEMIDE 40 MG TAB PO SCH (09:24)
[2023-03-05] MEDS: OXYBUTYNIN CHLORIDE XL 5 MG TABCR PO SCH (09:24)
[2023-03-05] MEDS: ASPIRIN 81 MG ECTAB PO SCH (09:24)
[2023-03-05] MEDS: POTASSIUM CHLORIDE 10 MEQ TABCR PO SCH (09:31)
[2023-03-05] MEDS: LACOSAMIDE 50 MG TABLET PO SCH ×2 (10:25→21:40)
[2023-03-05] MEDS ORDERED: EUCERIN CR 120 GM JAR EXT PRN (12:49)
[2023-03-05] MEDS ORDERED: COUGH DROP (SUGAR FREE) LOZ 24 LOZ/1 BOX BUCCAL STA (12:54)
[2023-03-05] MEDS: SENNA 8.6 MG TAB PO SCH (21:41)
[2023-03-06] MEDS: LEVOTHYROXINE SODIUM 25 MCG TABLET PO SCH (06:09)
--- NOTE | 2023-03-06 06:48 | Hospitalist Progress Note ---
Date of Service March 06, 2023 Assessment & Plan (1) Generalized weakness: Plan: 52 year old female admitted for entero/rhinovirus, generalized weakness, deconditioning. -Patient with fall at the beginning of month followed by hospitalization at [facility] and subsequent stay at rehab with allegedly early dismissal resulting in current deconditioning -Patient claims discharged too soon due to insurance coverage issue. -Consulted PT/OT eval and treat. Recommending rehab; insurance declined. Family appeal in process. Willing to go to SNF if not approved. (2) Bilateral leg edema: Plan: -Has history of CHF according to record patient gave however patient without any recollection, normal EF on echocardiogram done on 02/27/2023 -Given Lasix 40mg IV in the ER; appears euvolemic - Concern for chronic venous stasis and dieresis of chronic venous stasis - Creatine stable, continue home Lasix dosing (3) History of CHF (congestive heart failure): Plan: Same plan as above. Patient listed to take 40mg Lasix at home daily. (4) GERD without esophagitis: Plan: -Continue home pantoprazole. (5) Hypothyroidism: Plan: -continue home levothyroxine. (6) Chronic anticoagulation: Plan: -Continue home Eliquis for history of DVT. (7) Localization-related symptomatic epilepsy and epileptic syndromes with complex partial seizures, not intractable, without status epilepticus: Plan: -Continue home lacosamide. (8) Normocytic anemia: Plan: - Hemoglobin stable at 10 - prior records for comparison - no signs of acute bleed Plan F/E/N/GI: Heart healthy DVT: Eliquis Code status: Full Dispo: Medically stable, pending rehab vs SNF placement Admission and Anticipated Discharge Date Admission Date: February 27, 2023 Supervising Physician Co-Signing Physician Notes I also saw the patient and confirmed cornell portions of the history and exam. I discussed the case with the resident physician and I agree with the impression and plan as noted in her documentation. Patient without complaints. She is understandably upset with her acute rehabilitation being denied by insurance. VS as noted. A/O. NAD Respirations non labored HR regular Impression and Plan Weakness/deconditioning: PT/OT consult appreciated. Pending placement. Encouraged openness to SNF if rehab denied by insurance. Anemia, chronic - stable at last hgb Additional per resident documentation Subjective Pt seen at bedside this morning. States that she began family appeal yesterday. Still hoping for placement at [facility]. Review of Systems Review of Systems: As per above Physical Exam Physical Exam: Constitutional: well-appearing, no acute distress HEENT: NCAT, no conjunctival injection CV: regular rhythm, no murmur appreciated, extremities well-perfused. Venous stasis dermatitis. +1 pitting edema B/L LE Resp: CTABL, no wheezes/rales/rhonchi appreciated, no increased work of breathing MSK: no gross deformities appreciated Skin: warm, dry, no rash appreciated Neuro: alert, oriented, no focal neurologic deficit appreciated Results & Data Results & Data Vital Signs (Past 12 Hours) Vital Signs Temp Pulse Resp BP Pulse Ox O2 Del Method 03/05/23 21:52 36.5 C 69 18 133/79 99 Room Air 03/05/23 21:30 Room Air Resident Activity Tracking Resident Involvement: Resident Care Provided Care Provided: Adult Hospital Medicine
[2023-03-06] MEDS: APIXABAN 5 MG TABLET PO SCH ×2 (09:12→20:50)
[2023-03-06] MEDS: PANTOprazole 40 MG TAB PO SCH (09:16)
[2023-03-06] MEDS: OXYBUTYNIN CHLORIDE XL 5 MG TABCR PO SCH (09:16)
[2023-03-06] MEDS: FUROSEMIDE 40 MG TAB PO SCH (09:16)
[2023-03-06] MEDS: FOLIC ACID 1 MG TAB PO SCH (09:16)
[2023-03-06] MEDS: ASPIRIN 81 MG ECTAB PO SCH (09:16)
[2023-03-06] MEDS: POTASSIUM CHLORIDE 10 MEQ TABCR PO SCH (09:19)
[2023-03-06] MEDS: LACOSAMIDE 50 MG TABLET PO SCH ×2 (10:22→22:00)
[2023-03-06] MEDS: ACETAMINOPHEN 325 MG TAB PO PRN ×2 (10:24→20:49)
[2023-03-06] MEDS: SENNA 8.6 MG TAB PO SCH (20:50)
[2023-03-07] MEDS: LEVOTHYROXINE SODIUM 25 MCG TABLET PO SCH (06:28)
--- NOTE | 2023-03-07 07:13 | Hospitalist Progress Note ---
Date of Service March 07, 2023 Assessment & Plan (1) Generalized weakness: Plan: 52 year old female admitted for entero/rhinovirus, generalized weakness, deconditioning. -Patient with fall at the beginning of month followed by hospitalization at [facility] and subsequent stay at rehab with allegedly early dismissal resulting in current deconditioning -Patient claims discharged too soon due to insurance coverage issue. -Consulted PT/OT eval and treat. Recommending rehab; insurance declined. Family appeal in process. Willing to go to SNF if not approved. (2) Bilateral leg edema: Plan: -Has history of CHF according to record patient gave however patient without any recollection, normal EF on echocardiogram done on 02/27/2023 -Given Lasix 40mg IV in the ER; appears euvolemic - Concern for chronic venous stasis and dieresis of chronic venous stasis - Creatine stable, continue home Lasix dosing (3) History of CHF (congestive heart failure): Plan: Same plan as above. Patient listed to take 40mg Lasix at home daily. (4) GERD without esophagitis: Plan: -Continue home pantoprazole. (5) Hypothyroidism: Plan: -continue home levothyroxine. (6) Chronic anticoagulation: Plan: -Continue home Eliquis for history of DVT. (7) Localization-related symptomatic epilepsy and epileptic syndromes with complex partial seizures, not intractable, without status epilepticus: Plan: -Continue home lacosamide. (8) Normocytic anemia: Plan: - Hemoglobin stable at 10 - prior records for comparison - no signs of acute bleed Plan F/E/N/GI: Heart healthy DVT: Eliquis Code status: Full Dispo: Medically stable, pending rehab vs SNF placement Admission and Anticipated Discharge Date Admission Date: February 27, 2023 Supervising Physician Co-Signing Physician Notes Attending attestation Pt seen and examined in concert with Dr. Trejo. In agreement with the documented findings as noted in the resident documentation with any exceptions or additions as noted here. Pt resting comfortably in bed without new complaint. On examination, S1/S2 nl RRR no MCG. CTAB. Abd NT/ND BS+ve VS: 165/80, 78, 16, 36.4C, 99 RA Weakness - awaiting case management for placement, counseling provided on SNF v. rehab placement Else see resident documentation as noted. Subjective Pt seen at bedside this morning. No complaints. She has agreed to SNF placement if rehab is denied and has given case management her choices. Review of Systems Review of Systems: As per above Physical Exam Physical Exam: Constitutional: well-appearing, no acute distress HEENT: NCAT, no conjunctival injection CV: regular rhythm, no murmur appreciated, extremities well-perfused. Venous stasis dermatitis. +1 pitting edema B/L LE Resp: CTABL, no wheezes/rales/rhonchi appreciated, no increased work of breathing MSK: no gross deformities appreciated Skin: warm, dry, no rash appreciated Neuro: alert, oriented, no focal neurologic deficit appreciated Results & Data Results & Data Vital Signs (Past 12 Hours) Vital Signs Temp Pulse Resp BP Pulse Ox O2 Del Method 03/06/23 20:00 Room Air 03/06/23 19:44 36.5 C 74 18 143/79 H 97 Room Air Resident Activity Tracking Resident Involvement: Resident Care Provided Care Provided: Adult Hospital Medicine
[2023-03-07] MEDS: FUROSEMIDE 40 MG TAB PO SCH (09:20)
[2023-03-07] MEDS: ASPIRIN 81 MG ECTAB PO SCH (09:20)
[2023-03-07] MEDS: PANTOprazole 40 MG TAB PO SCH (09:20)
[2023-03-07] MEDS: LACOSAMIDE 50 MG TABLET PO SCH ×2 (09:20→20:56)
[2023-03-07] MEDS: APIXABAN 5 MG TABLET PO SCH ×2 (09:21→20:55)
[2023-03-07] MEDS: FOLIC ACID 1 MG TAB PO SCH (09:21)
[2023-03-07] MEDS: OXYBUTYNIN CHLORIDE XL 5 MG TABCR PO SCH (09:21)
[2023-03-07] MEDS: POTASSIUM CHLORIDE 10 MEQ TABCR PO SCH (09:23)
[2023-03-07] MEDS: SENNA 8.6 MG TAB PO SCH (20:55)
[2023-03-08] MEDS: LEVOTHYROXINE SODIUM 25 MCG TABLET PO SCH (06:37)
--- NOTE | 2023-03-08 06:50 | Hospitalist Progress Note ---
Date of Service March 08, 2023 Assessment & Plan (1) Generalized weakness: Plan: 52 year old female admitted for entero/rhinovirus, generalized weakness, deconditioning. Generalized Weakness -Patient with fall at the beginning of month followed by hospitalization at [facility] and subsequent stay at rehab with allegedly early dismissal resulting in current deconditioning -Patient claims discharged too soon due to insurance coverage issue. -Consulted PT/OT eval and treat. Recommending rehab; insurance declined. Family appeal in process. Willing to go to SNF if not approved. Bilateral Leg Edema -Has history of CHF according to record patient gave however patient without any recollection, normal EF on echocardiogram done on 02/27/2023 -Given Lasix 40mg IV in the ER; appears euvolemic -Concern for chronic venous stasis and dieresis of chronic venous stasis -Creatine stable, continue home Lasix dosing GERD Without Esophagitis -Continue home pantoprazole. Hypothyroidism -Continue home levothyroxine Chronic Anticoagulation -Continue home Eliquis for history of DVT Epilepsy -Continue home lacosamide Normocytic Anemia -Hemoglobin stable at 10 -prior records for comparison -no signs of acute bleed F/E/N/GI: Heart healthy DVT: Eliquis Code status: Full Dispo: Medically stable, pending rehab vs SNF placement (2) Bilateral leg edema: (3) History of CHF (congestive heart failure): (4) GERD without esophagitis: (5) Hypothyroidism: (6) Chronic anticoagulation: (7) Localization-related symptomatic epilepsy and epileptic syndromes with complex partial seizures, not intractable, without status epilepticus: (8) Normocytic anemia: Admission and Anticipated Discharge Date Admission Date: February 27, 2023 Supervising Physician Co-Signing Physician Notes Attending attestation Pt seen and examined in concert with Dr. Gil. In agreement with the documented findings as noted in the resident documentation with any exceptions or additions as noted here. Pt resting comfortably in bed without new complaint. On examination, S1/S2 nl RRR no MCG. CTAB. Abd NT/ND BS+ve VS: 135/72, 78, 18, 36.5C, 95 RA Weakness - awaiting case management for placement, counseling provided on SNF v. rehab placement Else see resident documentation as noted. Subjective Patient seen and examined at bedside. No acute events overnight reported, patient resting in bed at time of encounter. Patient expresses frustration with the issues of placement/insurance auths, etc. She denies any chest pain, shortness of breath. Review of Systems Review of Systems: As per above Physical Exam Constitutional: WD/WN, vitals as above Eyes: + anicteric sclerae; no conjunctival abn ormality ENMT: Ears: no external ear abnormality Nose: no external nose abnormality Moist mucous membranes Respiratory: normal respiratory effort, lungs clear to auscultation Cardiovascular: Rate/Rhythm: regular rate and regular rhythm +2 edema of bilateral lower extremities Gastrointestinal (Abdomen): Percussion/Palpation: abdomen soft; abdomen nontender Skin: lower extremities with darkened red/purple hue, edema as noted above. No drainage or exudate. Psychiatric: A+Ox3, euthymic affect Results & Data Results & Data Vital Signs (Past 12 Hours) Vital Signs Temp Pulse Resp BP Pulse Ox O2 Del Method 03/07/23 21:10 36.5 C 87 20 161/77 H 94 Room Air 03/07/23 20:00 Room Air Resident Activity Tracking Resident Involvement: Resident Care Provided Care Provided: Adult Hospital Medicine
[2023-03-08] MEDS: APIXABAN 5 MG TABLET PO SCH ×2 (08:34→20:03)
[2023-03-08] MEDS: PANTOprazole 40 MG TAB PO SCH (08:34)
[2023-03-08] MEDS: ASPIRIN 81 MG ECTAB PO SCH (08:34)
[2023-03-08] MEDS: FOLIC ACID 1 MG TAB PO SCH (08:34)
[2023-03-08] MEDS: FUROSEMIDE 40 MG TAB PO SCH (08:34)
[2023-03-08] MEDS: LACOSAMIDE 50 MG TABLET PO SCH ×2 (08:35→20:03)
[2023-03-08] MEDS: OXYBUTYNIN CHLORIDE XL 5 MG TABCR PO SCH (08:35)
[2023-03-08] MEDS: POTASSIUM CHLORIDE 10 MEQ TABCR PO SCH (08:42)
[2023-03-08] MEDS: ACETAMINOPHEN 325 MG TAB PO PRN ×2 (09:11→17:09)
[2023-03-08] MEDS ORDERED: BENZOCAINE 20% (ORAJEL) 11.9 GM TUBE MT PRN (18:38)
[2023-03-08] MEDS: SENNA 8.6 MG TAB PO SCH (20:04)
[2023-03-09] MEDS: LEVOTHYROXINE SODIUM 25 MCG TABLET PO SCH (06:29)
--- NOTE | 2023-03-09 07:37 | Hospitalist Progress Note ---
Date of Service March 09, 2023 Assessment & Plan (1) Generalized weakness: Plan: 52 year old female admitted for entero/rhinovirus, generalized weakness, deconditioning. Generalized Weakness -Patient with fall at the beginning of month followed by hospitalization at [facility] and subsequent stay at rehab with allegedly early dismissal resulting in current deconditioning -Patient claims discharged too soon due to insurance coverage issue. -Consulted PT/OT eval and treat. Recommending rehab; insurance declined. Family appeal in process. Willing to go to SNF if not approved. Bilateral Leg Edema -Has history of CHF according to record patient gave however patient without any recollection, normal EF on echocardiogram done on 02/27/2023 -Given Lasix 40mg IV in the ER; appears euvolemic -Concern for chronic venous stasis and dieresis of chronic venous stasis -Creatine stable, continue home Lasix dosing GERD Without Esophagitis -Continue home pantoprazole. Hypothyroidism -Continue home levothyroxine Chronic Anticoagulation -Continue home Eliquis for history of DVT Epilepsy -Continue home lacosamide Normocytic Anemia -Hemoglobin stable at 10 -prior records for comparison -no signs of acute bleed Eczema -Ordered home clobetasol cream F/E/N/GI: Heart healthy DVT: Eliquis Code status: Full Dispo: Medically stable, pending rehab vs SNF placement (2) Bilateral leg edema: (3) History of CHF (congestive heart failure): (4) GERD without esophagitis: (5) Hypothyroidism: (6) Chronic anticoagulation: (7) Localization-related symptomatic epilepsy and epileptic syndromes with complex partial seizures, not intractable, without status epilepticus: (8) Normocytic anemia: Admission and Anticipated Discharge Date Admission Date: February 27, 2023 Supervising Physician Co-Signing Physician Notes Attending attestation Pt seen and examined in concert with Dr. Gil. In agreement with the documented findings as noted in the resident documentation with any exceptions or additions as noted here. Pt resting comfortably in bed without new complaint. On examination, S1/S2 nl RRR no MCG. CTAB. Abd NT/ND BS+ve VS: 126/69, 77, 16, 36.4C, 94 RA Weakness - awaiting case management for placement, counseling provided on SNF v. rehab placement Else see resident documentation as noted. Subjective Patient was seen and examined at bedside. Last night she complained of an ongoing toothache and requests her home clobetasol for her eczema. She is eating breakfast at time of the encounter and in no acute distress. Review of Systems Review of Systems: As per above Physical Exam Constitutional: WD/WN, vitals as above Eyes: + anicteric sclerae; no conjunctival abn ormality ENMT: Ears: no external ear abnormality Nose: no external nose abnormality Respiratory: normal respiratory effort, lungs clear to auscultation Cardiovascular: Rate/Rhythm: regular rate and regular rhythm Bilateral lower extremity edema +2 Gastrointestinal (Abdomen): Percussion/Palpation: abdomen soft; abdomen nontender Skin: Minimal erythema and rough skin at right ankle Psychiatric: A+Ox3, euthymic affect Results & Data Results & Data Vital Signs (Past 12 Hours) Vital Signs Temp Pulse Resp BP Pulse Ox O2 Del Method 03/08/23 19:59 36.6 C 72 20 133/76 97 Room Air Resident Activity Tracking Resident Involvement: Resident Care Provided Care Provided: Adult Hospital Medicine
[2023-03-09] MEDS: APIXABAN 5 MG TABLET PO SCH ×2 (08:28→21:00)
[2023-03-09] MEDS: FUROSEMIDE 40 MG TAB PO SCH (08:28)
[2023-03-09] MEDS: ASPIRIN 81 MG ECTAB PO SCH (08:28)
[2023-03-09] MEDS: FOLIC ACID 1 MG TAB PO SCH (08:28)
[2023-03-09] MEDS: OXYBUTYNIN CHLORIDE XL 5 MG TABCR PO SCH (08:28)
[2023-03-09] MEDS: PANTOprazole 40 MG TAB PO SCH (08:28)
[2023-03-09] MEDS: LACOSAMIDE 50 MG TABLET PO SCH ×2 (08:29→21:00)
[2023-03-09] MEDS: POTASSIUM CHLORIDE 10 MEQ TABCR PO SCH (08:29)
[2023-03-09] MEDS: CLOBETASOL PROPIONATE 0.05% CREAM 15 GM TUBE EXT PRN (18:44)
[2023-03-09] MEDS: SENNA 8.6 MG TAB PO SCH (22:46)
[2023-03-10] MEDS: ACETAMINOPHEN 325 MG TAB PO PRN (04:29)
[2023-03-10] MEDS: LEVOTHYROXINE SODIUM 25 MCG TABLET PO SCH (04:29)
--- NOTE | 2023-03-10 07:28 | Hospitalist Progress Note ---
Date of Service March 10, 2023 Assessment & Plan (1) Generalized weakness: Plan: Pt is a 52 yo female admitted for entero/rhinovirus, generalized weakness, and deconditioning. Generalized weakness - pt with fall at the beginning of month followed by hospitalization at [facility] and subsequent stay at rehab with allegedly early dismissal/lack of adequate rehab resulting in current deconditioning; pt claims discharged too soon due to insurance coverage issue - consulted PT/OT; recommended rehab; insurance declined- family appeal in process. Pt willing to go to SNF if not approved. Bilateral leg edema - history of CHF according to record patient gave however patient without any recollection, normal EF on echocardiogram done on 02/27/2023 - s/p lasix 40mg IV in the ER; appears euvolemic - exam most compatible with chronic venous stasis - continue home lasix 40 mg daily while hospitalized; however, would recommend outpatient f/u to discern if this is treating true HF or attempting to diurese c hronic venous stasis GERD - continue home pantoprazole Hypothyroidism - continue home levothyroxine Hx of DVT - continue home eliquis Epilepsy - continue home lacosamide Normocytic anemia - Hgb stable at 10 ; no prior records for comparison - no signs of acute bleed Eczema - continue home clobetasol cream Diet: heart healthy DVT: eliquis Code: Full Dispo: medically stable, pending rehab vs SNF placement (2) Bilateral leg edema: (3) History of CHF (congestive heart failure): (4) GERD without esophagitis: (5) Hypothyroidism: (6) Chronic anticoagulation: (7) Localization-related symptomatic epilepsy and epileptic syndromes with complex partial seizures, not intractable, without status epilepticus: (8) Normocytic anemia: Admission and Anticipated Discharge Date Admission Date: February 27, 2023 Supervising Physician Co-Signing Physician Notes Attending attestation I personally examined the patient and verified all cornell points of history and exam, discussed case, and agree with decision making with Dr Ordonez. sleeping comfortably, awaiting placement. no new updates. vitals noted nad allowed to rest breathing unlabored Weakness - unsafe to go home. despite apparently reassuring her that they would allow her more rehab time, insurance predictably denied rehab. family appeal pending. SNF as backup plan. otherwise as above Subjective Pt doing well this AM- no new concerns or complaints. Review of Systems Review of Systems: As per HPI Physical Exam Physical Exam: Constitutional: well appearing, no acute distress HEENT: normocephalic, no conjunctival injection CV: RRR, no murmur, no LE edema Respiratory: CTA bilaterally. No rhonchi, wheezes, or crackles. No increased work of breathing MSK: no gross deformities noted Skin: warm, dry, chronic venous stasis dermatitis of bilateral LE Neuro: alert, oriented, no FND noted Psych: mood and affect congruent Results & Data Results & Data Vital Signs (Past 12 Hours) Vital Signs Temp Pulse Resp BP Pulse Ox O2 Del Method 03/10/23 07:10 36.5 C 71 16 128/72 94 Room Air 03/09/23 21:03 Room Air 03/09/23 19:45 36.5 C 69 20 134/77 96 Room Air Resident Activity Tracking Resident Involvement: Resident Care Provided Care Provided: Adult Hospital Medicine
[2023-03-10] MEDS: APIXABAN 5 MG TABLET PO SCH ×2 (08:52→21:20)
[2023-03-10] MEDS: ASPIRIN 81 MG ECTAB PO SCH (08:52)
[2023-03-10] MEDS: POTASSIUM CHLORIDE 10 MEQ TABCR PO SCH (08:52)
[2023-03-10] MEDS: FUROSEMIDE 40 MG TAB PO SCH (08:53)
[2023-03-10] MEDS: PANTOprazole 40 MG TAB PO SCH (08:53)
[2023-03-10] MEDS: OXYBUTYNIN CHLORIDE XL 5 MG TABCR PO SCH (08:53)
[2023-03-10] MEDS: FOLIC ACID 1 MG TAB PO SCH (08:53)
[2023-03-10] MEDS: LACOSAMIDE 50 MG TABLET PO SCH ×2 (08:55→21:20)
--- NOTE | 2023-03-10 18:51 | Billing Data ---
Date of Service March 10, 2023 Coding Level of Care Code 39506 SUB INP/OBS CARE
[2023-03-10] MEDS: SENNA 8.6 MG TAB PO SCH (21:20)
[2023-03-11] MEDS: CLOBETASOL PROPIONATE 0.05% CREAM 15 GM TUBE EXT PRN (04:25)
[2023-03-11] MEDS: LEVOTHYROXINE SODIUM 25 MCG TABLET PO SCH (06:06)
[2023-03-11] MEDS: ACETAMINOPHEN 325 MG TAB PO PRN (06:45)
--- NOTE | 2023-03-11 09:00 | Hospitalist Progress Note ---
Date of Service March 11, 2023 Assessment & Plan (1) Generalized weakness: Plan: Pt is a 52 yo female admitted for entero/rhinovirus, generalized weakness, and deconditioning. Generalized weakness - pt with fall at the beginning of month followed by hospitalization at [facility] and subsequent stay at rehab with allegedly early dismissal/lack of adequate rehab resulting in current deconditioning; pt claims discharged too soon due to insurance coverage issue - consulted PT/OT; recommended rehab; insurance declined- family appeal in process. Pt willing to go to SNF if not approved- referrals sent by CM Bilateral leg edema - history of CHF according to record patient gave however patient without any recollection, normal EF on echocardiogram done on 02/27/2023 - s/p lasix 40mg IV in the ER; appears euvolemic - exam most compatible with chronic venous stasis - continue home lasix 40 mg daily while hospitalized; however, would recommend outpatient f/u to discern if this is treating true HF or attempting to diurese chronic venous stasis GERD - continue home pantoprazole Hypothyroidism - continue home levothyroxine Hx of DVT - continue home eliquis Epilepsy - continue home lacosamide Normocytic anemia - Hgb stable at 10; no prior records for comparison - FOBT negative - no signs of acute bleed Eczema - continue home clobetasol cream Diet: heart healthy DVT: eliquis Code: Full Dispo: medically stable, pending rehab vs SNF placement (2) Bilateral leg edema: (3) History of CHF (congestive heart failure): (4) GERD without esophagitis: (5) Hypothyroidism: (6) Chronic anticoagulation: (7) Localization-related symptomatic epilepsy and epileptic syndromes with complex partial seizures, not intractable, without status epilepticus: (8) Normocytic anemia: Admission and Anticipated Discharge Date Admission Date: February 27, 2023 Supervising Physician Co-Signing Physician Notes Attending attestation I personally examined the patient and verified all cornell points of history and exam, discussed case, and agree with decision making with Dr Ordonez. No new complaints. Just waiting on results of appeal. Vitals noted, in general she is awake and alert pleasant no distress. HEENT normocephalic atraumatic mucous membranes moist. Breathing unlabored no accessory muscle use good effort. Skin shows no rashes no pallor or icterus. Neuro without focal deficits. Weakness - unsafe to go home. despite apparently reassuring her that they would allow her more rehab time, insurance predictably denied rehab. family appeal pending. SNF as backup plan. Stable when approved/bed available otherwise as above Subjective No new complaints this AM. She is anxious to get out of the hospital. Review of Systems Review of Systems: As per HPI Physical Exam Physical Exam: Constitutional: well appearing, no acute distress HEENT: normocephalic, no conjunctival injection CV: clinically well perfused, bilateral LE edema Respiratory: no increased work of breathing MSK: no gross deformities noted Skin: warm, dry, chronic venous stasis dermatitis Neuro: alert, oriented, no FND noted Psych: mood and affect congruent Results & Data Results & Data Vital Signs (Past 12 Hours) Vital Signs Temp Pulse Resp BP Pulse Ox O2 Del Method 03/11/23 07:47 36.8 C 84 16 130/76 94 Room Air Resident Activity Tracking Resident Involvement: Resident Care Provided Care Provided: Adult Hospital Medicine
[2023-03-11] MEDS: LACOSAMIDE 50 MG TABLET PO SCH ×2 (09:02→20:17)
[2023-03-11] MEDS: ASPIRIN 81 MG ECTAB PO SCH (09:03)
[2023-03-11] MEDS: FUROSEMIDE 40 MG TAB PO SCH (09:03)
[2023-03-11] MEDS: FOLIC ACID 1 MG TAB PO SCH (09:03)
[2023-03-11] MEDS: POTASSIUM CHLORIDE 10 MEQ TABCR PO SCH (09:03)
[2023-03-11] MEDS: PANTOprazole 40 MG TAB PO SCH (09:04)
[2023-03-11] MEDS: APIXABAN 5 MG TABLET PO SCH ×2 (09:04→20:17)
[2023-03-11] MEDS: OXYBUTYNIN CHLORIDE XL 5 MG TABCR PO SCH (09:04)
--- NOTE | 2023-03-11 18:02 | Billing Data ---
Date of Service March 11, 2023 Coding Level of Care Code 62457 SUB INP/OBS CARE
[2023-03-11] MEDS: SENNA 8.6 MG TAB PO SCH (20:18)
[2023-03-12] MEDS: LEVOTHYROXINE SODIUM 25 MCG TABLET PO SCH (05:26)
[2023-03-12 07:07] VITALS: BP 132/73; RESP 16; TEMP 97.7; O2SAT 96
[2023-03-12] MEDS: FUROSEMIDE 40 MG TAB PO SCH (08:59)
[2023-03-12] MEDS: OXYBUTYNIN CHLORIDE XL 5 MG TABCR PO SCH (08:59)
[2023-03-12] MEDS: FOLIC ACID 1 MG TAB PO SCH (08:59)
[2023-03-12] MEDS: POTASSIUM CHLORIDE 10 MEQ TABCR PO SCH (08:59)
[2023-03-12] MEDS: APIXABAN 5 MG TABLET PO SCH (08:59)
[2023-03-12] MEDS: ASPIRIN 81 MG ECTAB PO SCH (08:59)
[2023-03-12] MEDS: PANTOprazole 40 MG TAB PO SCH (08:59)
[2023-03-12] MEDS: LACOSAMIDE 50 MG TABLET PO SCH (10:02)
--- NOTE | 2023-03-12 10:15 | Discharge Summary ---
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 Patient states that she was just at [facility] in [place] and while there had developed a sore throat and some increased difficulty with breathing. She was discharged from the rehab facility 2 days ago. She states that she was discharged when she lost her insurance coverage as she was not able to walk very well when discharged and could barely walk with a cane. The sore throat has persisted and she's had increased shortness of breath and some mild increase in swelling in the bilateral lower extremities. She usually wears compression stockings for these. She has not had any fevers, chills, chest pain, diarrhea, or dysuria. She does have a history of urinary incontinence. She denies any history of previous cardiac issues or lung disease. In the ER her Hgb is 10.0, WBC 7.29, CMP, PT, INR unremarkable. respiratory biofire was positive for entero/rhinovirus. CXR showed mild cardiomegaly, no acute processes in the lungs per my read. She was given a dose of Lasix 40mg IV in the ER as well as a dose of her Lacosamide anti-seizure medication. Admission Exam Per Admitting Provider Constitutional: WD/WN, vitals as above Eyes: PERRL, conjunctivae normal, anicteric sclerae Respiratory: normal respiratory effort, lungs clear to auscultation Cardiovascular: Rate/Rhythm: regular rate and regular rhythm Heart Sounds: normal S1 and normal S2 Peripheral pulses 2+ bilaterally. No pitting edema however increased size of legs. Gastrointestinal (Abdomen): normal bowel sounds, soft, nontender, no hepatosplenomegaly Skin: erythema around bilateral legs below the shins to the ankles, appears chronic venous stasis changes although blanchable. Psychiatric: A+Ox3, euthymic affect Principal Diagnosis deconditioning, entero/rhinovirus Discharge Exam Constitutional: well appearing, no acute distress HEENT: normocephalic, no conjunctival injection CV: clinically well perfused Respiratory: no increased work of breathing MSK: no gross deformities noted Skin: warm, dry, chronic stasis dermatitis of bilateral LE Neuro: alert, oriented, no FND noted Discharge Data Allergies Allergy/AdvReac Type Severity Reaction Status Date / Time Penicillins Allergy Unknown CAN'T Verified 02/26/23 21:00 REMEMBER phenytoin [From Dilantin] AdvReac Intermediate REALLY BAD Verified 02/26/23 21:00 HEADACHE Consultations 02/26/23 23:23 ED Decision to Admit Stat Hospital Course (1) Generalized weakness: Pt is a 52 yo female admitted for entero/rhinovirus, generalized weakness, and deconditioning. Generalized weakness - pt with fall at the beginning of month followed by hospitalization at [facility] and subsequent stay at rehab with allegedly early dismissal/lack of adequate rehab resulting in current deconditioning; pt claims discharged too soon due to insurance coverage issue - consulted PT/OT; recommended rehab; insurance declined- family appeal pursued w/o resolution - accepted to [facility] for discharge Bilateral leg edema - history of CHF according to record patient gave however patient without any recollection, normal EF on echocardiogram done on 02/27/2023 - s/p lasix 40mg IV in the ER; appears euvolemic - exam most compatible with chronic venous stasis - continue home lasix 40 mg daily while hospitalized; however, would recommend outpatient f/u to discern if this is treating true HF or attempting to diurese chronic venous stasis GERD - continue home pantoprazole Hypothyroidism - continue home levothyroxine Hx of DVT - continue home eliquis Epilepsy - continue home lacosamide Normocytic anemia - Hgb stable at 10; no prior records for comparison - FOBT negative - no signs of acute bleed Eczema - continue home clobetasol cream Diet: heart healthy DVT: eliquis Code: Full Dispo: [facility] (2) Bilateral leg edema: (3) History of CHF (congestive heart failure): (4) GERD without esophagitis: (5) Hypothyroidism: (6) Chronic anticoagulation: (7) Localization-related symptomatic epilepsy and epileptic syndromes with complex partial seizures, not intractable, without status epilepticus: (8) Normocytic anemia: Total Time Total Time Spent Total Time Spent (In Minutes): <30 Discharge Plan Discharge Items Patient Disposition: Transfer Halfway Fac Reason For Visit: SHORTNESS OF BREATH Discharge Diagnosis: deconditioning, viral respiratory infection Activity: Per Instructions section Non-emergency contact: Primary Care Provider Call non-emergency contact if: you have any medication questions and your symptoms worsen Follow-up/Referrals: Ilsa Braswell D.O. [Primary Care Provider] - Diet: Regular Addtl Attending Provider Instructions: Pt is a 52 yo female admitted for entero/rhinovirus, generalized weakness, and deconditioning. Generalized weakness - pt with fall at the beginning of month followed by hospitalization at [facility] and subsequent stay at rehab with allegedly early dismissal/lack of adequate rehab resulting in current deconditioning; pt claims discharged too soon due to insurance coverage issue - consulted PT/OT; recommended rehab; insurance declined- family appeal pursued w/o resolution - accepted to [facility] for discharge Bilateral leg edema - history of CHF according to record patient gave however patient without any recollection, normal EF on echocardiogram done on 02/27/2023 - s/p lasix 40mg IV in the ER; appears euvolemic - exam most compatible with chronic venous stasis - continue home lasix 40 mg daily while hospitalized; however, would recommend outpatient f/u to discern if this is treating true HF or attempting to diurese chronic venous stasis GERD - continue home pantoprazole Hypothyroidism - continue home levothyroxine Hx of DVT - continue home eliquis Epilepsy - continue home lacosamide Normocytic anemia - Hgb stable at 10; no prior records for comparison - FOBT negative - no signs of acute bleed Eczema - continue home clobetasol cream Diet: heart healthy DVT: eliquis Code: Full Dispo: [facility] Pending Studies at Discharge: No Stand-Alone Forms: My [facility] Skilled Items Patient informed of condition?: Yes DNR: No Discharge Level of Care: Skilled Communicable Disease: No Discharge Prognosis: Stable Lines: None Urinary Catheter: No Medications and DC Order Prescriptions: Continued multivitamin Tablet 1 tab PO QAM furosemide 40 mg tablet 40 mg PO DAILY sennosides [Senokot] 8.6 mg Tablet 17.2 mg PO HS potassium chloride 10 mEq Capsule, Extended Release 10 meq PO DAILY acetaminophen [Tylenol] 325 mg Tablet 650 mg PO Q6H PRN (Reason: PAIN/FEVER) oxybutynin chloride 15 mg Tablet Extended Release 24hr 15 mg PO DAILY aspirin 81 mg Tablet,Delayed Release (Dr/Ec) 81 mg PO DAILY levothyroxine 25 mcg tablet 25 mcg PO DAILY pantoprazole 40 mg Tablet,Delayed Release (Dr/Ec) 40 mg PO DAILY folic acid 1 mg Tablet 1 mg PO DAILY lacosamide 100 mg tablet 100 mg PO BID Eliquis 5 mg Tablet 5 mg PO BID Discontinued azithromycin 250 mg tablet 250 mg PO DAILY Rx Instructions: STARTED 02/22/23 FOR 6 DAYS. Discharge Orders: Discharge Order (Routine); Ordered 03/12/23 Ordered By: Marguerite Ordonez Admission Data Admit Date/Time: 02/27/23 01:03 Attending Provider: Zay Fay Admit Provider: Salazar Britton Primary Care Provider: Ilsa Braswell Other Providers: [facility]; Cal Braga; Jose Rivera Other Interventions: Discharge Summary Assessment (RN) Last Done: 03/12/23 13:11 Supervising Physician Co-Signing Physician Notes Attending attestation I personally examined the patient and verified all cornell points of history and exam, discussed case, and agree with decision making with Dr Ordonez. No new complaints. for SNF today. Vitals noted, in general she is awake and alert pleasant no distress. HEENT normocephalic atraumatic mucous membranes moist. Breathing unlabored no accessory muscle use good effort. Skin shows no rashes no pallor or icterus. Neuro without focal deficits. Weakness - unsafe to go home. insurance unfortunately denied rehab. fortunately she is able to go to SNF. transfer today. otherwise as above Resident Activity Tracking Resident Involvement: Resident Care Provided Care Provided: Adult Hospital Medicine
[2023-03-12] MEDS: ACETAMINOPHEN 325 MG TAB PO PRN (12:52)
[2023-03-12 13:13] VITALS: PULSE 77
--- NOTE | 2023-03-12 17:26 | Billing Data ---
Date of Service March 12, 2023 Coding Level of Care Code 34474 IN/OBS DISCH 30 MIN/LESS
== END 2023-03-12 15:01 | DRG 866 ==
LOC: ED 17:46 → EDINP 02-27 01:03 → SUATTDRO 02-27 01:03 → 2W 02-27 04:01 → 3E 03-03 02:10
DX: I50.9 Heart failure, unspecified; Z60.2 Problems related to living alone; G40.209 Localization-related (focal) (partial) symptomatic epilepsy and epileptic syndromes with complex partial seizures, not intractable, without status epilepticus; E03.9 Hypothyroidism, unspecified; R60.0 Localized edema; Z79.890 Hormone replacement therapy; D64.9 Anemia, unspecified; Z79.01 Long term (current) use of anticoagulants; G40.909 Epilepsy, unspecified, not intractable, without status epilepticus; Z88.0 Allergy status to penicillin; R53.1 Weakness; B34.8 Other viral infections of unspecified site; L30.9 Dermatitis, unspecified; K21.00 Gastro-esophageal reflux disease with esophagitis, without bleeding

== ENCOUNTER 2023-05-03 04:34 | Inpatient (IN) ==
--- NOTE | 2023-05-03 05:13 | Emergency Department Note ---
History of Present Illness General Chief complaint: Fever Stated complaint: AMS, Fever, Tachycardia Time Seen by Provider: 05/03/23 05:03 History of Present Illness This 52-year-old female coming from a half-way presents the ER for fever and increased confusion today. half-way did not give her anything for the fever. Patient threw up when she arrived. EMS gave her fluids and some Zofran. Patient denies chest pain, dyspnea, abdominal pain, cough, congestion. Patient is able to follow commands. Home Medications Medication Instructions Recorded Confirmed Type acetaminophen 325 mg tablet 650 mg PO Q6H PRN PAIN/FEVER 02/26/23 05/03/23 History (Tylenol) apixaban 5 mg tablet (Eliquis) 5 mg PO BID 02/26/23 05/03/23 History folic acid 1 mg tablet 1 mg PO DAILY 02/26/23 05/03/23 History furosemide 40 mg tablet 40 mg PO DAILY 02/26/23 05/03/23 History lacosamide 100 mg tablet 100 mg PO Q12H 02/26/23 05/03/23 History levothyroxine 25 mcg tablet 25 mcg PO DAILY 02/26/23 05/03/23 History multivitamin 1 tab PO QAM 02/26/23 05/03/23 History oxybutynin chloride 15 mg 15 mg PO DAILY 02/26/23 05/03/23 History tablet,extended release 24 hr pantoprazole 40 mg tablet,delayed 40 mg PO DAILY 02/26/23 05/03/23 History release potassium chloride 10 mEq 20 meq PO DAILY 02/26/23 05/03/23 History capsule,extended release sennosides 8.6 mg tablet (Senokot) 17.2 mg PO HS 02/26/23 05/03/23 History aspirin 81 mg chewable tablet 81 mg PO DAILY 05/03/23 05/03/23 History bisacodyl 10 mg rectal suppository 10 mg MD DAILY PRN Constipation 05/03/23 05/03/23 History (Dulcolax (bisacodyl)) doxycycline hyclate 100 mg tablet 100 mg PO BID 05/03/23 05/03/23 History fluoxetine 10 mg capsule 20 mg PO DAILY 05/03/23 05/03/23 History hydroxyzine HCl 25 mg tablet 25 mg PO Q6H PRN Itching 05/03/23 05/03/23 History lorazepam 2 mg/mL injection syringe 1 mg IM .[id number] PRN epilepsy 05/03/23 05/03/23 History magnesium hydroxide 400 mg/5 mL 2,400 mg PO DAILY PRN Constipation 05/03/23 05/03/23 History oral suspension (Milk of Magnesia) sodium phosphates 19 gram-7 118 ml MD DAILY PRN Constipation 05/03/23 05/03/23 History gram/118 mL enema (Enema) Allergies Allergy/AdvReac Type Severity Reaction Status Date / Time Penicillins Allergy Unknown CAN'T Verified 05/03/23 08:16 REMEMBER phenytoin [From Dilantin] AdvReac Intermediate REALLY BAD Verified 05/03/23 08:16 HEADACHE Past Med/Surg History Medical History History of DVT (deep vein thrombosis) GERD (gastroesophageal reflux disease) History of benign brain tumor Seizure disorder Congestive heart failure 02/27/23 Echo EF 55-60% technically limited study Hypothyroidism Surgical History SOLUTION SPEC (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) shunt status Social History Smoking Status: Never smoker Second Hand Exposure: No; Do You Dip or Chew Tobacco: No; Hx Alcohol Use: No Hx Substance Use: No Preferred Language: Mauritian Communication Ability: Effective Expedition Supervisor Required: No Beliefs That Will Affect Care: None Current Living Situation: Rehab Feels Safe at Home: Yes Assistive Devices: Cane and Mechanical Lift Review of Systems A total of 10 systems reviewed and were otherwise negative Physical Exam Vital Signs Vital Signs - 24 hr 05/03/23 04:41 05/03/23 04:47 05/03/23 06:46 Temperature 38.6 C H 37.9 C H Temperature Source Oral Oral Pulse Rate 122 H 118 H Pulse Rate [Apical] Pulse Rate from SpO2 Sensor Pulse Rhythm [Apical] Pulse Strength [Apical] Respiratory Rate 30 H Respiratory Effort / Characteristics Non-Labored Spontaneous Respiratory Depth Normal Respiratory Pattern Regular Blood Pressure 130/78 Blood Pressure [Right Arm] Blood Pressure Mean 95 Blood Pressure Mean [Right Arm] Blood Pressure Position Semi-fowlers Blood Pressure Position [Right Arm] Pulse Oximetry 95 Oxygen Delivery Method Nasal Cannula Oxygen Flow Rate 2 Sepsis Recent Fever Within 48 Hours Yes Sepsis New/Unexplained Change in Mental Status Yes Sepsis Action Taken by Nursing Physician Notified 05/03/23 06:47 05/03/23 06:47 05/03/23 06:49 Temperature 37.9 C H Temperature Source Oral Pulse Rate 103 H Pulse Rate [Apical] 102 H Pulse Rate from SpO2 Sensor Pulse Rhythm [Apical] Pulse Strength [Apical] Respiratory Rate 22 22 Respiratory Effort / Characteristics Non-Labored Spontaneous Respiratory Depth Normal Respiratory Pattern Blood Pressure Blood Pressure [Right Arm] 134/70 Blood Pressure Mean Blood Pressure Mean [Right Arm] 91 Blood Pressure Position Blood Pressure Position [Right Arm] Lying Pulse Oximetry 95 96 Oxygen Delivery Method Room Air Room Air Oxygen Flow Rate Sepsis Recent Fever Within 48 Hours Sepsis New/Unexplained Change in Mental Status Sepsis Action Taken by Nursing 05/03/23 07:08 05/03/23 07:35 05/03/23 07:50 Temperature 36.8 C Temperature Source Oral Pulse Rate 98 H Pulse Rate [Apical] 101 H Pulse Rate from SpO2 Sensor 99 H Pulse Rhythm [Apical] Pulse Strength [Apical] Respiratory Rate 12 19 Respiratory Effort / Characteristics Non-Labored Respiratory Depth Respiratory Pattern Blood Pressure Blood Pressure [Right Arm] 109/66 Blood Pressure Mean Blood Pressure Mean [Right Arm] 80 Blood Pressure Position Blood Pressure Position [Right Arm] Pulse Oximetry 95 96 Oxygen Delivery Method Room Air Oxygen Flow Rate Sepsis Recent Fever Within 48 Hours Sepsis New/Unexplained Change in Mental Status Sepsis Action Taken by Nursing 05/03/23 08:00 05/03/23 08:00 05/03/23 08:05 Temperature Temperature Source Pulse Rate 95 H Pulse Rate [Apical] 94 H Pulse Rate from SpO2 Sensor 96 H Pulse Rhythm [Apical] Pulse Strength [Apical] Respiratory Rate 21 15 Respiratory Effort / Characteristics Respiratory Depth Respiratory Pattern Blood Pressure 119/72 Blood Pressure [Right Arm] 119/72 Blood Pressure Mean 80 Blood Pressure Mean [Right Arm] 87 Blood Pressure Position Blood Pressure Position [Right Arm] Pulse Oximetry 96 95 Oxygen Delivery Method Oxygen Flow Rate Sepsis Recent Fever Within 48 Hours Sepsis New/Unexplained Change in Mental Status Sepsis Action Taken by Nursing 05/03/23 08:10 05/03/23 08:20 05/03/23 08:30 Temperature Temperature Source Pulse Rate 93 H 94 H Pulse Rate [Apical] Pulse Rate from SpO2 Sensor 94 H 94 H Pulse Rhythm [Apical] Pulse Strength [Apical] Respiratory Rate 21 21 Respiratory Effort / Characteristics Respiratory Depth Respiratory Pattern Blood Pressure 112/80 Blood Pressure [Right Arm] Blood Pressure Mean 82 Blood Pressure Mean [Right Arm] Blood Pressure Position Blood Pressure Position [Right Arm] Pulse Oximetry 96 95 Oxygen Delivery Method Oxygen Flow Rate Sepsis Recent Fever Within 48 Hours Sepsis New/Unexplained Change in Mental Status Sepsis Action Taken by Nursing 05/03/23 08:30 05/03/23 08:39 05/03/23 08:40 Temperature Temperature Source Pulse Rate 94 H 93 H Pulse Rate [Apical] 92 H Pulse Rate from SpO2 Sensor 95 H 94 H Pulse Rhythm [Apical] Pulse Strength [Apical] Respiratory Rate 22 15 21 Respiratory Effort / Characteristics Respiratory Depth Respiratory Pattern Blood Pressure Blood Pressure [Right Arm] 112/80 Blood Pressure Mean Blood Pressure Mean [Right Arm] 90 Blood Pressure Position Blood Pressure Position [Right Arm] Pulse Oximetry 96 96 96 Oxygen Delivery Method Oxygen Flow Rate Sepsis Recent Fever Within 48 Hours Sepsis New/Unexplained Change in Mental Status Sepsis Action Taken by Nursing 05/03/23 08:46 05/03/23 08:50 05/03/23 09:00 Temperature Temperature Source Pulse Rate 96 H 94 H Pulse Rate [Apical] Pulse Rate from SpO2 Sensor 94 H Pulse Rhythm [Apical] Pulse Strength [Apical] Respiratory Rate 18 Respiratory Effort / Characteristics Respiratory Depth Respiratory Pattern Blood Pressure 121/82 Blood Pressure [Right Arm] Blood Pressure Mean 101 Blood Pressure Mean [Right Arm] Blood Pressure Position Blood Pressure Position [Right Arm] Pulse Oximetry 95 Oxygen Delivery Method Oxygen Flow Rate Sepsis Recent Fever Within 48 Hours Sepsis New/Unexplained Change in Mental Status Sepsis Action Taken by Nursing 05/03/23 09:00 05/03/23 09:10 05/03/23 09:20 Temperature Temperature Source Pulse Rate 91 H 92 H 92 H Pulse Rate [Apical] Pulse Rate from SpO2 Sensor 91 H 92 H 92 H Pulse Rhythm [Apical] Pulse Strength [Apical] Respiratory Rate 22 19 21 Respiratory Effort / Characteristics Respiratory Depth Respiratory Pattern Blood Pressure Blood Pressure [Right Arm] Blood Pressure Mean Blood Pressure Mean [Right Arm] Blood Pressure Position Blood Pressure Position [Right Arm] Pulse Oximetry 95 97 96 Oxygen Delivery Method Oxygen Flow Rate Sepsis Recent Fever Within 48 Hours Sepsis New/Unexplained Change in Mental Status Sepsis Action Taken by Nursing 05/03/23 09:30 05/03/23 09:30 05/03/23 09:35 Temperature Temperature Source Pulse Rate 89 Pulse Rate [Apical] 93 H Pulse Rate from SpO2 Sensor 89 Pulse Rhythm [Apical] Regular Pulse Strength [Apical] Normal Respiratory Rate 22 12 Respiratory Effort / Characteristics Non-Labored Respiratory Depth Normal Respiratory Pattern Blood Pressure 132/76 Blood Pressure [Right Arm] 132/76 Blood Pressure Mean 96 Blood Pressure Mean [Right Arm] 94 Blood Pressure Position Blood Pressure Position [Right Arm] Pulse Oximetry 97 97 Oxygen Delivery Method Room Air Oxygen Flow Rate Sepsis Recent Fever Within 48 Hours Sepsis New/Unexplained Change in Mental Status Sepsis Action Taken by Nursing 05/03/23 09:40 05/03/23 09:48 05/03/23 09:49 Temperature Temperature Source Pulse Rate 90 Pulse Rate [Apical] 90 Pulse Rate from SpO2 Sensor 91 H Pulse Rhythm [Apical] Regular Pulse Strength [Apical] Normal Respiratory Rate 19 15 Respiratory Effort / Characteristics Non-Labored Respiratory Depth Normal Respiratory Pattern Blood Pressure 129/82 Blood Pressure [Right Arm] 129/82 Blood Pressure Mean 95 Blood Pressure Mean [Right Arm] 97 Blood Pressure Position Blood Pressure Position [Right Arm] Pulse Oximetry 98 97 Oxygen Delivery Method Nasal Cannula Oxygen Flow Rate 2 Sepsis Recent Fever Within 48 Hours Sepsis New/Unexplained Change in Mental Status Sepsis Action Taken by Nursing 05/03/23 09:49 05/03/23 09:50 05/03/23 10:00 Temperature Temperature Source Pulse Rate 90 89 Pulse Rate [Apical] Pulse Rate from SpO2 Sensor 90 90 Pulse Rhythm [Apical] Pulse Strength [Apical] Respiratory Rate 23 22 Respiratory Effort / Characteristics Respiratory Depth Respiratory Pattern Blood Pressure 137/90 Blood Pressure [Right Arm] Blood Pressure Mean 94 Blood Pressure Mean [Right Arm] Blood Pressure Position Blood Pressure Position [Right Arm] Pulse Oximetry 97 98 Oxygen Delivery Method Oxygen Flow Rate Sepsis Recent Fever Within 48 Hours Sepsis New/Unexplained Change in Mental Status Sepsis Action Taken by Nursing 05/03/23 10:00 Temperature Temperature Source Pulse Rate 90 Pulse Rate [Apical] Pulse Rate from SpO2 Sensor 91 H Pulse Rhythm [Apical] Pulse Strength [Apical] Respiratory Rate 25 H Respiratory Effort / Characteristics Respiratory Depth Respiratory Pattern Blood Pressure Blood Pressure [Right Arm] Blood Pressure Mean Blood Pressure Mean [Right Arm] Blood Pressure Position Blood Pressure Position [Right Arm] Pulse Oximetry 98 Oxygen Delivery Method Oxygen Flow Rate Sepsis Recent Fever Within 48 Hours Sepsis New/Unexplained Change in Mental Status Sepsis Action Taken by Nursing VITALS: Vitals are noted on the nurse's note and reviewed by myself. Vital signs febrile GENERAL: White female febrile mildly confused, in no acute distress, nondiaphoretic, well-developed well-nourished. SKIN: Capillary reflex less than 2 seconds. Right lower leg with cellulitis present. HEENT: Normocephalic. PERRLA. EOMI. Nares patent. Mucous membranes moist. Neck is supple without nuchal rigidity. HEART: Regular rate and rhythm LUNGS: Clear to auscultation bilaterally without wheezes, rales or rhonchi. No retractions or accessory muscle use. ABDOMEN: Positive bowel sounds x 4. Normal tympanic percussion. Soft, nontender, without masses or organomegaly. Solomon sign negative. No guarding or rebound tenderness. MUSCULOSKELETAL: No gross musculoskeletal defects. NEURO: Patient was alert and oriented to person place and time. No focal neurological deficits. Course Administered Medications Cefepime HCl 2,000 mg/ Syringe 20 mls @ 5 mls/min IV Q8H [facility]; Protocol Stop: 05/10/23 14:59 Last Admin: 05/03/23 15:43 Dose: 5 mls/min Documented By: ZOFIA Discontinued Medications Cefepime HCl (Cefepime 2,000 Mg/20 Ml Vial) Confirm Administered Dose 2,000 mg .ROUTE .STK-MED ONE Stop: 05/03/23 15:19 Last Admin: 05/03/23 15:43 Dose: Not Given Documented By: ZOFIA Cefepime HCl (Cefepime 2,000 Mg/20 Ml Vial) Confirm Administered Dose 2,000 mg .ROUTE .STK-MED ONE Stop: 05/03/23 15:21 Last Admin: 05/03/23 15:43 Dose: Not Given Documented By: ZOFIA Sodium Chloride (Nss) 1,000 mls @ 999 mls/hr IV .Q1H1M ONE Stop: 05/03/23 06:08 Last Infusion: 05/03/23 08:01 Dose: Infused Documented By: Admin: 05/03/23 05:58 Dose: 999 mls/hr Documented By: Acetaminophen (Ofirmev) 1,000 mg in 100 mls @ 400 mls/hr IV NOW STA Stop: 05/03/23 05:22 Last Infusion: 05/03/23 06:51 Dose: Infused Documented By: Admin: 05/03/23 05:58 Dose: 400 mls/hr Documented By: JARRET Cefepime HCl (Maxipime) 2,000 mg in 20 mls @ 5 mls/min IV NOW STA; Protocol Stop: 05/03/23 05:14 Last Admin: 05/03/23 06:50 Dose: 5 mls/min Documented By: Vancomycin HCl 2,500 mg/ (Sodium Chloride) 550 mls @ 200 mls/hr IV NOW ONE Stop: 05/03/23 08:33 Last Infusion: 05/03/23 15:12 Dose: Infused Documented By: Admin: 05/03/23 07:59 Dose: 200 mls/hr Documented By: ALMA Magnesium Sulfate/Dextrose (Magnesium Sulfate / D5w) 1 gm in 100 mls @ 100 mls/hr IV Q1H MARGARITA Stop: 05/03/23 07:50 Last Infusion: 05/03/23 09:25 Dose: Infused Documented By: Admin: 05/03/23 08:19 Dose: 100 mls/hr Documented By: Infusion: 05/03/23 08:11 Dose: Infused Documented By: Admin: 05/03/23 07:11 Dose: 100 mls/hr Documented By: Sodium Chloride (Nss) 500 mls @ 999 mls/hr IV .Q31M ONE Stop: 05/03/23 07:01 Last Admin: 05/03/23 07:44 Dose: Not Given Documented By: ALMA Sodium Chloride (Nss) 250 mls @ 999 mls/hr IV .Q16M ONE Stop: 05/03/23 06:50 Last Admin: 05/03/23 07:44 Dose: Not Given Documented By: ALMA Sodium Chloride (Nss) 1,000 mls @ 999 mls/hr IV .Q1H1M ONE Stop: 05/03/23 07:35 Last Admin: 05/03/23 07:43 Dose: Not Given Documented By: ALMA Ioversol (Optiray 320 500ml) 87 ml IV ONCE ONE Stop: 05/03/23 06:43 Last Admin: 05/03/23 06:42 Dose: 87 ml Documented By: VELASQUEZ Potassium Chloride (Potassium Chloride Crtab 20 Meq Tabcr) 40 meq PO NOW STA Stop: 05/03/23 05:52 Last Admin: 05/03/23 07:12 Dose: 40 meq Documented By: Medical Decision Making Medical Records Attestation: I reviewed the patient's medical records. Home Medications Current Medication List: was personally reviewed by me Laboratory Data Attestation: I reviewed the patient's lab results. 05/03/23 04:49 05/03/23 04:49 Lab Results 05/03/23 05/03/23 05/03/23 Range/Units 04:49 05:06 05:22 WBC 21.32 H (4.8-10.8) K/ul RBC 4.18 L (4.20-5.40) M/uL Hgb 9.6 L (12.0-16.0) g/dl Hct 32.5 L (37.0-47.0) % MCV 77.8 L (80.0-100.0) fL MCH 23.0 L (25.0-34.0) pg MCHC 29.5 L (32.0-36.0) g/dL RDW Std Deviation 52.7 H (36.4-46.3) fL RDW Coeff of Neo 18.8 H (11.5-14.5) % Plt Count 236 (130-400) K/uL MPV 11.2 (9.4-12.4) fL Immature Gran % (Auto) 0.6 % Neut % (Auto) 93.3 % Lymph % (Auto) 3.3 % Kleberg % (Auto) 2.5 % Eos % (Auto) 0.2 % Baso % (Auto) 0.1 % Neut # (Auto) 19.89 H (1.40-6.50) K/uL Lymph # (Auto) 0.70 L (1.20-3.40) K/uL Kleberg # (Auto) 0.53 (0.11-0.59) K/uL Eos # (Auto) 0.04 (0.00-0.50) K/uL Baso # (Auto) 0.03 (0.00-0.20) K/uL Immature Gran # (Auto) 0.13 (0.01-0.20) K/uL Polychromasia 1+ ABG pH (7.35-7.45) ABG pCO2 (35-46) mmHg ABG pO2 (80-95) mmHg ABG HCO3 (19-24) mmol/L ABG O2 Saturation (90-95) % ABG Base Excess (-9-1.8) mEq/L Gonzales Test (Pos) Oxygen Given Sodium 139 (136-145) mmol/L Potassium 3.3 L (3.5-5.1) mmol/L Chloride 103 (98-107) mmol/L Carbon Dioxide 26 (21-32) mmol/L Anion Gap 10 (3-11) BUN 16 (6-23) mg/dl Creatinine 0.74 (0.6-1.2) mg/dl Est Cr Clr Drug Dosing 102.6 ml/min Est GFR ( Amer) 106.5 ml/min Est GFR (Non-Af Amer) 91.8 ml/min BUN/Creatinine Ratio 21.6 H (10-20) Glucose 138 H (70-99(Fasting)) mg/dl Lactate (0.4-2.0) mmol/L Calcium 8.8 (8.6-10.3) mg/dl Magnesium 1.4 L (1.7-2.4) mg/dl Total Bilirubin 0.6 (0.2-1.0) mg/dl Direct Bilirubin 0.1 (0-0.2) mg/dl AST 17 (13-39) U/L ALT 18 (7-52) U/L Alkaline Phosphatase 65 (34-104) U/L Troponin I High Sens 4.2 (0-14) pg/ml Total Protein 7.4 (6.0-8.3) gm/dl Albumin 3.6 (3.4-5.0) gm/dl Procalcitonin 1.71 H (0-0.5) ng/ml TSH 2.324 (0.300-4.500) uIu/ml Urine Color Yellow Urine Appearance Clear (Clear) Urine pH 5.5 (4.5-7.5) Ur Specific Bath >= 1.030 (1.000-1.030) Urine Protein 1+ H (Negative) Urine Glucose (UA) Negative (Negative) Urine Ketones Negative (Negative) Urine Blood Negative (Negative) Urine Nitrite Negative (Negative) Urine Bilirubin Negative (Negative) Urine Urobilinogen Negative (Negative) Ur Leukocyte Esterase Negative (Negative) Urine RBC 0-4 (0-4) /hpf Urine WBC 0-5 (0-5) /hpf Ur Epithelial Cells 20-30 H (0-5) /lpf Urine Bacteria 1+ H (Negative) Urine Mucus Present A (None Prsent) Adenovirus (PCR) Not Detected (NotDetected) B. pertussis DNA (PCR) Not Detected (NotDetected) B.parapertussis DNA PCR Not Detected (NotDetected) C. pneumoniae DNA (PCR) Not Detected (NotDetected) Coronavirus OC43 (PCR) Not Detected (NotDetected) Coronavirus HKU1 (PCR) Not Detected (NotDetected) Coronavirus 229E (PCR) Not Detected (NotDetected) SARS-CoV-2 (PCR) Not Detected (NotDetected) Coronavirus NL63 (PCR) Not Detected (NotDetected) Human Metapneumovir PCR Not Detected (NotDetected) Influenza Type A (PCR) Not Detected (NotDetected) Influenza Type B (PCR) Not Detected (NotDetected) M. pneumoniae (PCR) Not Detected (NotDetected) Parainfluenza 1 (PCR) Not Detected (NotDetected) Parainfluenza 2 (PCR) Not Detected (NotDetected) Parainfluenza 3 (PCR) Not Detected (NotDetected) Parainfluenza 4 (PCR) Not Detected (NotDetected) RSV (PCR) Not Detected (NotDetected) Entero/Rhino (PCR) Not Detected (NotDetected) 05/03/23 05/03/23 05/03/23 Range/Units 05:50 07:56 08:50 WBC (4.8-10.8) K/ul RBC (4.20-5.40) M/uL Hgb (12.0-16.0) g/dl Hct (37.0-47.0) % MCV (80.0-100.0) fL MCH (25.0-34.0) pg MCHC (32.0-36.0) g/dL RDW Std Deviation (36.4-46.3) fL RDW Coeff of Neo (11.5-14.5) % Plt Count (130-400) K/uL MPV (9.4-12.4) fL Immature Gran % (Auto) % Neut % (Auto) % Lymph % (Auto) % Kleberg % (Auto) % Eos % (Auto) % Baso % (Auto) % Neut # (Auto) (1.40-6.50) K/uL Lymph # (Auto) (1.20-3.40) K/uL Kleberg # (Auto) (0.11-0.59) K/uL Eos # (Auto) (0.00-0.50) K/uL Baso # (Auto) (0.00-0.20) K/uL Immature Gran # (Auto) (0.01-0.20) K/uL Polychromasia ABG pH 7.40 (7.35-7.45) ABG pCO2 46 (35-46) mmHg ABG pO2 99 H (80-95) mmHg ABG HCO3 29 H (19-24) mmol/L ABG O2 Saturation 97.9 H (90-95) % ABG Base Excess 3.0 H (-9-1.8) mEq/L Gonzales Test Pos (Pos) Oxygen Given 2 L Sodium (136-145) mmol/L Potassium (3.5-5.1) mmol/L Chloride (98-107) mmol/L Carbon Dioxide (21-32) mmol/L Anion Gap (3-11) BUN (6-23) mg/dl Creatinine (0.6-1.2) mg/dl Est Cr Clr Drug Dosing ml/min Est GFR ( Amer) ml/min Est GFR (Non-Af Amer) ml/min BUN/Creatinine Ratio (10-20) Glucose (70-99(Fasting)) mg/dl Lactate 2.8 H* 2.2 H* (0.4-2.0) mmol/L Calcium (8.6-10.3) mg/dl Magnesium (1.7-2.4) mg/dl Total Bilirubin (0.2-1.0) mg/dl Direct Bilirubin (0-0.2) mg/dl AST (13-39) U/L ALT (7-52) U/L Alkaline Phosphatase (34-104) U/L Troponin I High Sens (0-14) pg/ml Total Protein (6.0-8.3) gm/dl Albumin (3.4-5.0) gm/dl Procalcitonin (0-0.5) ng/ml TSH (0.300-4.500) uIu/ml Urine Color Urine Appearance (Clear) Urine pH (4.5-7.5) Ur Specific Bath (1.000-1.030) Urine Protein (Negative) Urine Glucose (UA) (Negative) Urine Ketones (Negative) Urine Blood (Negative) Urine Nitrite (Negative) Urine Bilirubin (Negative) Urine Urobilinogen (Negative) Ur Leukocyte Esterase (Negative) Urine RBC (0-4) /hpf Urine WBC (0-5) /hpf Ur Epithelial Cells (0-5) /lpf Urine Bacteria (Negative) Urine Mucus (None Prsent) Adenovirus (PCR) (NotDetected) B. pertussis DNA (PCR) (NotDetected) B.parapertussis DNA PCR (NotDetected) C. pneumoniae DNA (PCR) (NotDetected) Coronavirus OC43 (PCR) (NotDetected) Coronavirus HKU1 (PCR) (NotDetected) Coronavirus 229E (PCR) (NotDetected) SARS-CoV-2 (PCR) (NotDetected) Coronavirus NL63 (PCR) (NotDetected) Human Metapneumovir PCR (NotDetected) Influenza Type A (PCR) (NotDetected) Influenza Type B (PCR) (NotDetected) M. pneumoniae (PCR) (NotDetected) Parainfluenza 1 (PCR) (NotDetected) Parainfluenza 2 (PCR) (NotDetected) Parainfluenza 3 (PCR) (NotDetected) Parainfluenza 4 (PCR) (NotDetected) RSV (PCR) (NotDetected) Entero/Rhino (PCR) (NotDetected) Imaging Data Attestation: I personally reviewed and interpreted this imaging study as follows: Radiologist's Impression: Chest X-Ray 05/03/23 05:02 XR chest 1V portable CLINICAL HISTORY: Sepsis TECHNIQUE: Single frontal radiograph of the chest was obtained. Comparison: Comparison is made to chest radiograph 02/26/2023 FINDINGS: Exam is limited by underpenetration. Calcified aortic knob is seen. The lungs are clear. No evidence of pleural effusion or pneumothorax. IMPRESSION: No acute abnormalities and in particular no radiographic evidence of pneumonia. ACT 112: Negative or not required by law. Electronically signed by: Mejia Moses M.D. 05/03/2023 10:30 AM MDM Narrative Prior records/ancillary studies reviewed. Triage Nursing notes reviewed. Additional history obtained from EMS. The patient's history was concerning for fever. Differential diagnosis: Etiologies such as viral syndrome, otitis, pharyngitis, pneumonia, influenza, meningitis, urinary tract infection, sepsis, bacteremia, as well as others were entertained. Physical examination: As above ER treatment provided: An order was placed for continuous cardiac monitoring. The monitor shows a rate of 60-1 20 with a sinus rhythm per my interpretation. Cefepime, IV fluids were ordered, vancomycin, magnesium and potassium were ordered IV fluids were given per ideal body weight for septic protocol which is 76 kg. On reassessment the patient felt better. Diagnostics interpreted by me: ECG: Ordered for tachycardia EKG: Normal sinus, T wave inversions in 3 and aVF, V3 and V4. Rate of 120. Impression sinus tachycardia T wave inversions independently interpreted by myself The labs Independently Interpreted by myself revealed leukocytosis, stable anemia, low magnesium and potassium Blood cultures pending neg biofire Negative urine Elevated procalcitonin and lactic and patient was given IV fluids per ideal body weight as above Imaging studies: Chest x-ray with no acute consolidation, pneumothorax or free air per my independent interpretation CT is pending at time of signout Case signed out to oncoming provider pending CAT scan and reevaluation in stable condition The chart was completed utilizing [employer] Speech voice recognition software. Grammatical errors, random word insertions, pronoun errors, and incomplete sentences are an occassional consequence of this system due to software limitations, ambient noise, and hardware issues. Any formal questions or concerns about the content, text, or information contained within the body of this dictation should be directly addressed to the physician food service assistant for clarification. Impression & Plan Sepsis, Cellulitis of right leg, Hypokalemia, Hypomagnesemia Discharge Plan Visit Data Chief Complaint: Fever Stated Complaint: AMS, Fever, Tachycardia ED Provider: Felix Cazares ED Midlevel Provider: Gonsalo Gaytan Discharge Problem: Sepsis, Cellulitis of right leg, Hypokalemia, Hypomagnesemia Patient Disposition: Admitted As Inpatient Condition: Fair Discharge Instructions Interventions: ED Discharge Assessment Last Done: 05/03/23 11:24 Discharge Problem: Sepsis Qualifiers: Sepsis type: sepsis due to unspecified organism Sepsis acute organ dysfunction status: unspecified Qualified Code(s): A41.9 - Sepsis, unspecified organism
[2023-05-03 05:44] LABS: Hematocrit (blood only) 32.5 % (37.0-47.0); Hemoglobin 9.6 g/dl (12.0-16.0); Mean Corpuscular Hgb Conc 29.5 g/dL (32.0-36.0); Mean Corpuscular Volume 77.8 fL (80.0-100.0); Mean Platelet Volume 11.2 fL (9.4-12.4); Platelet Count 236 K/uL (130-400); RDW Coefficient of Variation 18.8 % (11.5-14.5); RDW Standard Deviation 52.7 fL (36.4-46.3); Red Blood Count 4.18 M/uL (4.20-5.40); White Blood Count 21.32 K/ul (4.8-10.8)
[2023-05-03 05:47] LABS: Albumin Level 3.6 gm/dl (3.4-5.0); BUN Creatinine Ratio 21.6 (10-20); Bilirubin Direct 0.1 mg/dl (0-0.2); Bilirubin,Total 0.6 mg/dl (0.2-1.0); Calcium 8.8 mg/dl (8.6-10.3); Creatinine Clr Calc Pharmacy 102.6 ml/min; Est GFR (African American) 106.5 ml/min; Est GFR (Non-African American) 91.8 ml/min; Magnesium 1.4 mg/dl (1.7-2.4); Potassium 3.3 mmol/L (3.5-5.1); Total Protein 7.4 gm/dl (6.0-8.3)
[2023-05-03] MEDS ORDERED: VANCOMYCIN CONSULT ACTIVE PRN (05:49)
[2023-05-03 05:53] LABS: Appearance Urine Clear (Clear); Bilirubin Urine Negative (Negative); Blood Urine Negative (Negative); Color Urine Yellow; Glucose Urine UA Negative (Negative); Ketones Urine Negative (Negative); Leukocyte Esterase Urine Negative (Negative); Nitrite Urine Negative (Negative); Protein Urine 1+ (Negative); Specific Gravity Urine >= 1.030 (1.000-1.030); Urobilinogen Urine Negative (Negative); pH Urine 5.5 (4.5-7.5)
[2023-05-03 05:54] LABS: Troponin I High Sensitivity 4.2 pg/ml (0-14)
[2023-05-03] MEDS: ACETAMINOPHEN 1,000 MG/100 ML VIAL IV STA (05:58)
[2023-05-03] MEDS: SODIUM CHLORIDE 0.9% 1,000 ML IV ONE ×2 (05:58→07:43)
--- NOTE | 2023-05-03 05:59 | Emergency Department Note ---
ED Visit Note I was consulted by the Advanced Practice Provider. I personally made/approved the management plan and take responsibility for the patient management. I performed a substantive portion of the visit. This includes the aspects of: -History/Physical and I personally saw the patient. -MDM -I independently interpreted the following studies: Chest x-ray .
[2023-05-03 06:02] LABS: Thyroid Stimulating Hormone 2.324 uIu/ml (0.300-4.500)
[2023-05-03 06:09] LABS: Adenovirus PCR Not Detected (NotDetected); Bordetella parapertussis PCR Not Detected (NotDetected); Bordetella pertussis PCR Not Detected (NotDetected); Chlamydia pneumoniae PCR Not Detected (NotDetected); Coronavirus 229E PCR Not Detected (NotDetected); Coronavirus CoV-2 (COVID19)PCR Not Detected (NotDetected); Coronavirus HKU1 PCR Not Detected (NotDetected); Coronavirus NL63 PCR Not Detected (NotDetected); Coronavirus OC43PCR Not Detected (NotDetected); Human Metapneumovirus PCR Not Detected (NotDetected); Influenza A PCR Not Detected (NotDetected); Influenza B PCR Not Detected (NotDetected); Mycoplasma pneumoniae PCR Not Detected (NotDetected); Parainfluenza Virus 1 PCR Not Detected (NotDetected); Parainfluenza Virus 2 PCR Not Detected (NotDetected); Parainfluenza Virus 3 PCR Not Detected (NotDetected); Parainfluenza Virus 4 PCR Not Detected (NotDetected); Respiratory Syncytial VirusPCR Not Detected (NotDetected); Rhinovirus/Enterovirus PCR Not Detected (NotDetected)
[2023-05-03 06:19] LABS: Epithelial Cell Urine 20-30 /lpf (0-5); Mucus Urine Present (None Prsent); RBC Urine 0-4 /hpf (0-4)
[2023-05-03 06:20] LABS: Bacteria Urine 1+ (Negative); WBC Urine 0-5 /hpf (0-5)
[2023-05-03 06:25] LABS: Basophils # (auto) 0.03 K/uL (0.00-0.20); Basophils % (auto) 0.1 %; Eosinophils # (auto) 0.04 K/uL (0.00-0.50); Eosinophils % (auto) 0.2 %; Immature Granulocytes # (auto) 0.13 K/uL (0.01-0.20); Immature Granulocytes % (auto) 0.6 %; Lymphocytes % (auto) 3.3 %; Monocytes # (auto) 0.53 K/uL (0.11-0.59); Monocytes % (auto) 2.5 %; Neutrophils # (auto) 19.89 K/uL (1.40-6.50); Neutrophils % (auto) 93.3 %; Polychromasia 1+
[2023-05-03] MEDS: OPTIRAY 320 500ml IV ONE (06:42)
[2023-05-03] MEDS: CEFEPIME 2,000 MG/20 ML VIAL IV STA (06:50)
--- NOTE | 2023-05-03 07:04 | Emergency Department Note ---
ED Visit Note Patient case signed out to me at 0700 hrs. on 05/03/2023 from Nancy Sanders PA-C. At that time patient was pending radiology read of the CT scans of the head as well as abdomen/pelvis. Please refer to Korin Sanders note prior to time of signout regarding chief complaint, HPI, ROS, PE, MDM/decision/plan. In short, the patient presents to us today from [facility] where she currently resides for evaluation of fever and increased confusion. On arrival per review of vital signs, the patient was tachycardic, febrile and tachypneic. No hypotension. Per report she also had episode of emesis on arrival. At time of signout patient already had orders for IV fluids for fluid resuscitation as well as broad-spectrum IV antibiotics. Labs reveal leukocytosis 21.32. Anemia with hemoglobin of 9.6. There is elevated lactate at 2.8. Procalcitonin 1.71. Blood cultures are pending at this time. I did evaluate the patient at time of signout. Patient is resting comfortably in the examination bed. The patient does have bilateral lower extremity erythema overlying the pretibial soft tissues with the right lower extremity showing areas of excoriation and open wounds. There is no lymphangitic streaking. No crepitus. On my assessment the patient is alert and oriented. She is answering all questions appropriately. 0720-patient was reevaluated and resting comfortably. Vital signs improving and patient's mental status is intact. Patient was reevaluated at 0745 a.m., this was a sepsis volume status reevaluation. The patient did receive IV fluids prehospital, reportedly 1 L. In review of the medication provided here and documentation, she has received 1 L of normal saline. At this point, patient's vital signs are stable and I do not feel further fluids are necessary. I am concerned about creating possible volume overload noting the documented history of CHF in the EMR. We will hold off on further fluids and closely trend the patient's vital signs and clinical course. No pressors needed at this time. Total fluid will be 2 L when combining prehospital fluid plus the 1 liter she received here. 0733-patient provided consent for me to speak with her sister. As I was about to call her sister, her sister actually called in and I spoke with her. We reviewed the findings and history. All questions were answered. Patient has been reassessed multiple times here. She noted that she did not sleep well last night and was sleepy but arousable. However, I did add an ABG. CT scans returned. CT scan of the head reveals nonspecific right simple fluid density extra-axial collection. This may represent old epidural hematoma at this patient with right-sided postsurgical changes, versus arachnoid cyst per radiologist. I did ask the patient if she has had any recent head imaging and she stated no. She is answering all questions appropriately. There is some left-sided facial droop noted, L sided deficits. I did ask the patient about this and she noted that this is not new and a chronic finding. She notes that she has had this since she was a child. She is very clear that this is not a new finding. She noted that the brain surgery was performed at [facility] in [place]. Per radiology, no acute abnormalities are seen on the head CT. CT scan of the abdomen/pelvis also resulted. This revealed no acute abnormalities to explain nausea and vomiting in particular no evidence of bowel obstruction per radiologist. At 8:34 AM I spoke with [facility] hospitalist, Dr. Muro. Please refer to further d ocumentation regarding the patient's stay. CT head/brain wo con CLINICAL HISTORY: ams Technique: Contiguous axial CT images of the head were acquired from the base of the skull to the vertex without intravenous contrast administration. Images were viewed in brain, subdural and bone windows. Automated dose lowering techniques and/or adjustment according to patient size were utilized for this exam. Comparison: None available at the time of this dictation. Findings: Ventriculomegaly is seen with a ACQUISITION PROFESSIONAL shunt catheter terminating in the left foramen of Monro. There is an extra-axial simple fluid density collection in the right frontotemporal convexity. There is minimal leftward midline shift of approximately 4 mm. Imaged portions of the paranasal sinuses and mastoid air cells are clear. The orbits appear normal. Postsurgical changes are seen in the right calvarium. Impression: Nonspecific right simple fluid density extra-axial collection. This may represent old epidural hematoma at this patient with right-sided postsurgical changes, versus arachnoid cyst. Correlation with surgical history outside imaging, if available, is recommended. No acute abnormalities are seen. ACT 112: Negative or not required by law. Electronically signed by: Mejia Moses M.D. 05/03/2023 8:[address] abd pelvis IV con only CLINICAL HISTORY: ams, fever TECHNIQUE: Helical axial images of the abdomen and pelvis were obtained and displayed. Automated dose lowering techniques and/or adjustment according to patient size were utilized for this exam. This exam was performed with intravenous contrast. CT DOSE: 1996.94 mGy.cm COMPARISON: None available at the time of this dictation. FINDINGS: Lower chest: No acute abnormality. Liver: Suggestion of hepatic steatosis. Gallbladder and biliary tree: No calcified gallstones. Normal caliber wall. No intra- or extrahepatic biliary ductal dilation. Pancreas: Unremarkable, no focal lesions. Spleen: Unremarkable. Adrenals: Unremarkable. Kidneys and ureters: Unremarkable. Bladder: Limited evaluation due to underdistention. Reproductive organs: Unremarkable. Bowel: Fatty there is a small hiatal hernia. Lymph nodes Retroperitoneal: Unremarkable. Pelvic: Unremarkable. Mesenteric: Unremarkable. Peritoneum: Normal. Vessels: IVC filter is seen. Abdominal wall: Fatty Bones: Unremarkable. IMPRESSION: No acute abnormalities to explain nausea and vomiting, in particular no evidence of bowel obstruction. ACT 112: Negative or not required by law. Electronically signed by: Mejia Moses M.D. 05/03/2023 8:31 AM .
[2023-05-03] MEDS: MAGNESIUM SULFATE / D5W 1 GM/100 ML BAG IV SCH (07:11)
[2023-05-03] MEDS: POTASSIUM CHLORIDE CRTAB 20 MEQ TABCR PO STA (07:12)
[2023-05-03] MEDS: SODIUM CHLORIDE 0.9% 500 ML IV ONE (07:44)
[2023-05-03] MEDS: SODIUM CHLORIDE 0.9% 250 ML IV ONE (07:44)
[2023-05-03] MEDS: VANCOMYCIN HCL 2,500 MG in SODIUM CHLORIDE 0.9% 500 ML IV ONE (07:59)
--- NOTE | 2023-05-03 08:25 | CT Scan Report ---
CT head/brain wo con CLINICAL HISTORY: ams Technique: Contiguous axial CT images of the head were acquired from the base of the skull to the nasrin merly without intravenous contrast administration. Images were viewed in brain, subdural and bone [facility]. Automated dose lowering techniques and/or adjustment according to patient size were utilized for this exam. Comparison: None available at the time of this dictation. Findings: Ventriculomegaly is seen with a SCIENTIFIC INFORMATICS LEADER shunt catheter terminating in the left foramen of Monro. There is an extra-axial simple fluid density collection in the right frontotemporal convexity. There is minima l leftward midline shift of approximately 4 mm. Imaged portions of the paranasal sinuses and mastoid air cells are clear. The orbits appear normal. Postsurgical changes are seen in the right calvarium. Impression: Nonspecific right simple fluid density extra-axial collection. This may represent old epidural hemato ma at this patient with right-sided postsurgical changes, versus arachnoid cyst. Correlation with donnie gical history outside imaging, if available, is recommended. No acute abnormalities are seen. ACT 112: Negative or not required by law. Electronically signed by: Mejia Moses M.D. 05/03/2023 8:22 AM
--- NOTE | 2023-05-03 08:33 | CT Scan Report ---
CT abd pelvis IV con only CLINICAL HISTORY: ams, fever TECHNIQUE: Helical axial images of the abdomen and pelvis were obtained and displayed. Automated dose lowering techniques and/or adjustment according to patient size were utilized for this exam. This e xam was performed with intravenous contrast. CT DOSE: 1996.94 mGy.cm COMPARISON: None available at the time of this dictation. FINDINGS: Lower chest: No acute abnormality. Liver: Suggestion of hepatic steatosis. Gallbladder and biliary tree: No calcified gallstones. Normal caliber wall. No intra- or extrahepatic biliary ductal dilation. Pancreas: Unremarkable, no focal lesions. Spleen: Unremarkable. Adrenals: Unremarkable. Kidneys and ureters: Unremarkable. Bladder: Limited evaluation due to underdistention. Reproductive organs: Unremarkable. Bowel: Fatty there is a small hiatal hernia. Lymph nodes Retroperitoneal: Unremarkable. Pelvic: Unremarkable. Mesenteric: Unremarkable. Peritoneum: Normal. Vessels: IVC filter is seen. Abdominal wall: Fatty Bones: Unremarkable. IMPRESSION: No acute abnormalities to explain nausea and vomiting, in particular no evidence of bowel obstruction . ACT 112: Negative or not required by law. Electronically signed by: Mejia Moses M.D. 05/03/2023 8:31 AM
[2023-05-03 08:58] LABS: HCO3 ABG 29 mmol/L (19-24); Oxygen Saturation ABG 97.9 % (90-95); PCO2 ABG 46 mmHg (35-46); PO2 ABG 99 mmHg (80-95)
[2023-05-03 09:03] LABS: Allen Test Pos (Pos)
--- NOTE | 2023-05-03 10:24 | Electrocardiogram Report ---
Test Reason : Blood Pressure : / mmHG Vent. Rate : 120 BPM Atrial Rate : 120 BPM P-R Int : 138 ms QRS Dur : 082 ms QT Int : 320 ms P-R-T Axes : 013 041 -12 degrees QTc Int : 452 ms Sinus tachycardia T wave abnormality, consider inferior ischemia T wave abnormality, consider anterolateral ischemia Abnormal ECG When compared with ECG of 26-FEB-2023 20:55, T wave inversion now evident in Inferior leads T wave inversion now evident in Anterolateral leads Confirmed by Blake Ye ([id number]) on 05/03/2023 10:24:23 AM Referred By: REFERRED SELF Confirmed By:Blake Ye
--- NOTE | 2023-05-03 10:31 | XRay Report ---
XR chest 1V portable CLINICAL HISTORY: Sepsis TECHNIQUE: Single frontal radiograph of the chest was obtained. Comparison: Comparison is made to chest radiograph 02/26/2023 FINDINGS: Exam is limited by underpenetration. Calcified aortic knob is seen. The lungs are clear. No evidence of pleural effusion or pneumothorax. IMPRESSION: No acute abnormalities and in particular no radiographic evidence of pneumonia. ACT 112: Negative or not required by law. Electronically signed by: Mejia Moses M.D. 05/03/2023 10:30 AM
[2023-05-03] MEDS ORDERED: bisacodyL 10 MG SUPP PR PRN (11:23)
[2023-05-03] MEDS ORDERED: POLYETHYLENE (MIRALAX) 17 GM PACK PO PRN (11:23)
[2023-05-03] MEDS ORDERED: SOD PHOSPHATE/SOD BIPHOSPHATE ENEMA 132 ML BTL PR PRN (11:23)
[2023-05-03] MEDS ORDERED: MAGNESIUM HYDROXIDE SUSP 30 ML UDC PO PRN (11:23)
[2023-05-03] MEDS ORDERED: ONDANSETRON INJ 2 MG/ML 2 ML VIAL IV PRN (11:23)
[2023-05-03] MEDS: CEFEPIME 2,000 MG/20 ML VIAL ONE ×2 (15:43)
[2023-05-03] MEDS: CEFEPIME 2,000 MG in SYRINGE 0 ML IV SCH (15:43)
--- NOTE | 2023-05-03 16:16 | History & Physical Report ---
Date of Service May 03, 2023 Assessment & Plan (1) Sepsis: Plan: admitted with sepsis unclear source causing acute organ dysfunction: acute metabolic encephalopathy. Tmax 38.6, heart rate 118, white blood count 21,000, mildly elevated lactate and procalcitonin possible source is right lower extremity cellulitis, however, it is not particularly impressive and she has been on oral doxycycline since 04/27 so other possibilities need to be considered she is tachypneic and could have aspiration pneumonia or pneumonitis however not hypoxic and chest x-ray is clear, the limited quality film due to hypoventilation and body habitus blood cultures were drawn and are pending. UA negative, respiratory BioFire negative, COVID/flu negative she had 1 episode of emesis but CT abdomen and pelvis are negative and abdominal exam is benign, LFTs benign therefore unlikely to have abdominal source of sepsis consider YARD MOTOR OPERATOR shunt infection however her fever and tachycardia EXTR improved extremely rapidly with just fluids and a dose of IV antibiotics so this may be less likely. If persistent sepsis without apparent source and altered mentation may need to consider tapping shunt, though we cannot do that at this facility -already recieved 2L fluids for sepsis, hold off on further bolus given stability and history of heart failure. Maintenance fluids until taking po -continue cefepime, monitor blood cultures -MRSA nasal ordered -MRSA infection seems unlikely so will defer coverage for now. Cellulitis is non-purulent and was on doxycycline already which would have covered MRSA (2) Acute metabolic encephalopathy: Plan: See above Note history of YARD MOTOR OPERATOR shunt and seizure disorder Avoid sedating/neurotoxic medications -abg was obtained and hypercarbia ruled out -CT head reviewed - chronic changes present: "Nonspecific right simple fluid density extra-axial collection. 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, since brain tumor resection (3) History of DVT (deep vein thrombosis): Plan: Continue apixaban Has IVC filter, unknown when placed - visible on abdominal CT (4) Hypothyroidism: Plan: Continue levothyroxine (5) YARD MOTOR OPERATOR (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) shunt status: Plan: see above (6) Seizure disorder: Plan: Continue lacosamide No seizures have been observed/reported though postictal state could account for acute encephalopathy (7) Congestive heart failure: Plan: Chronic diastolic heart failure Echo 02/27 with normal EF -caution to avoid fluid overload (8) Cellulitis of right leg: Plan: See above (9) Hypokalemia: Plan: Replaced po in ED this AM (10) Hypomagnesemia: Plan: Mag 1.4 Replaced with 1g IV by ED and I ordered an additional 1g IV -recheck in AM (11) Normocytic anemia: (12) GERD without esophagitis: Plan: cont PPI (13) Chronic anticoagulation: Plan: apixaban Plan DVT ppx: apixaban Code: full code according to SNF paperwork Dispo: PCU admission, resident of [facility] Admission and Anticipated Discharge Date Admission Date: May 03, 2023 History of Present Illness Chief Complaint: fever, decreased level of consciousness Primary Care Provider: Ilsa Braswell 52 y/o with history of benign brain tumor resection and resultant seizure disorder and remote YARD MOTOR OPERATOR shunt, VTE on chronic anticoagulation, and CHF who was sent to the ED from her nursing facility with fever and decreased level of consciousness. She is not able to provide any history but does open her eyes to voice and can inconsistently answer yes/no questions. She denies headache, neck pain, chest pain, abdominal pain, shortness of breath. I reviewed the records from [facility] and she was started on oral doxycycline 04/27 for RLE cellulitis in an area where she was scratching. I see a one-time administration of po hydroxyzine 48h ago but otherwise no record of sedating medications. No history of seizure was given. In ED she had one episode of emesis early on, currently denied nausea. EMS gave IV fluids, zofran. Had 2L IVF between EMS and ED. Febrile with Tm 38.6 and tachycardic to 118 but not hypotensive. Started on cefepime and vancomycin. Fever and tachycardia resolved throughout the ED course. Mental status waxed and waned - per ED RN she was more alert and talking more earlier this AM before I saw her midmorning. Family history - unknown/UTO Allergies Allergy/AdvReac Type Severity Reaction Status Date / Time Penicillins Allergy Unknown CAN'T Verified 05/03/23 08:16 REMEMBER phenytoin [From Dilantin] AdvReac Intermediate REALLY BAD Verified 05/03/23 08:16 HEADACHE Home Medications Medication Instructions Recorded Confirmed Type acetaminophen 325 mg tablet 650 mg PO Q6H PRN PAIN/FEVER 02/26/23 05/03/23 History (Tylenol) apixaban 5 mg tablet (Eliquis) 5 mg PO BID 02/26/23 05/03/23 History folic acid 1 mg tablet 1 mg PO DAILY 02/26/23 05/03/23 History furosemide 40 mg tablet 40 mg PO DAILY 02/26/23 05/03/23 History lacosamide 100 mg tablet 100 mg PO Q12H 02/26/23 05/03/23 History levothyroxine 25 mcg tablet 25 mcg PO DAILY 02/26/23 05/03/23 History multivitamin 1 tab PO QAM 02/26/23 05/03/23 History oxybutynin chloride 15 mg 15 mg PO DAILY 02/26/23 05/03/23 History tablet,extended release 24 hr pantoprazole 40 mg tablet,delayed 40 mg PO DAILY 02/26/23 05/03/23 History release potassium chloride 10 mEq 20 meq PO DAILY 02/26/23 05/03/23 History capsule,extended release sennosides 8.6 mg tablet (Senokot) 17.2 mg PO HS 02/26/23 05/03/23 History aspirin 81 mg chewable tablet 81 mg PO DAILY 05/03/23 05/03/23 History bisacodyl 10 mg rectal suppository 10 mg FL DAILY PRN Constipation 05/03/23 05/03/23 History (Dulcolax (bisacodyl)) doxycycline hyclate 100 mg tablet 100 mg PO BID 05/03/23 05/03/23 History fluoxetine 10 mg capsule 20 mg PO DAILY 05/03/23 05/03/23 History hydroxyzine HCl 25 mg tablet 25 mg PO Q6H PRN Itching 05/03/23 05/03/23 History lorazepam 2 mg/mL injection syringe 1 mg IM [id number] PRN epilepsy 05/03/23 05/03/23 History magnesium hydroxide 400 mg/5 mL 2,400 mg PO DAILY PRN Constipation 05/03/23 05/03/23 History oral suspension (Milk of Magnesia) sodium phosphates 19 gram-7 118 ml FL DAILY PRN Constipation 05/03/23 05/03/23 History gram/118 mL enema (Enema) Past Med/Surg History Medical History History of DVT (deep vein thrombosis) GERD (gastroesophageal reflux disease) History of benign brain tumor Seizure disorder Congestive heart failure 02/27/23 Echo EF 55-60% technically limited study Hypothyroidism Surgical History YARD MOTOR OPERATOR (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) shunt status Social History Smoking Status: Never smoker Second Hand Exposure: No; Do You Dip or Chew Tobacco: No; Hx Alcohol Use: No Hx Substance Use: No Preferred Language: Tajik Communication Ability: Effective Pattern Setter Required: No Beliefs That Will Affect Care: None Current Living Situation: Alone Feels Safe at Home: Yes Assistive Devices: Cane Review of Systems 2 Review of Systems: Unobtainable due to cognitive status (limited, as per HPI) Physical Exam 2 Physical Exam: PHYSICAL EXAMINATION Last 24h vital signs reviewed, see documentation in flowsheet General: lethargic but awake, chronically ill-appearing, no distress HEENT: Normocephalic, atraumatic, pupils round and equal, sclerae anicteric, no conjunctival injection, moist mucus membranes. no tenderness YARD MOTOR OPERATOR shunt tract left side of head Lungs: Normal respiratory effort. Clear to auscultation bilaterally. No RRW Heart: Regular rate and rhythm, no murmurs. No JVD Abdomen: Soft, nontender, nondistended. Bowel sounds present. Extremities: Warm, dry, well-perfused. 2+ extremity edema. hemosiderosis And cobblestoning consistent with chronic venous stasis. right lower ball with area of excoriations shallow wounds and erythema, no drainage, no purulence Neuro: lethargic but responds to voice answers basic yes/no questions inconsistently follows basic commands, face symmetric, left hand and arm are weak which she says is her baseline Psych: unable to assess Results & Data Results & Data Vital Signs (Past 12 Hours) Vital Signs Temp Pulse Pulse Resp BP BP Pulse Ox 05/03/23 15:28 87 24 94 05/03/23 15:28 117/83 05/03/23 15:00 86 20 95 05/03/23 14:30 81 24 93 05/03/23 14:10 80 26 H 94 05/03/23 14:00 82 25 H 95 05/03/23 13:50 81 24 95 05/03/23 13:40 82 26 H 95 05/03/23 13:30 81 25 H 94 05/03/23 13:20 85 22 89 L 05/03/23 13:10 84 26 H 94 05/03/23 13:00 83 23 92 05/03/23 12:50 81 27 H 94 05/03/23 12:40 83 32 H 91 05/03/23 12:30 82 25 H 93 05/03/23 12:20 81 25 H 93 05/03/23 12:10 83 31 H 94 05/03/23 12:00 87 30 H 94 05/03/23 11:58 88 26 H 05/03/23 11:30 122/76 05/03/23 11:30 83 24 98 05/03/23 11:20 84 24 99 05/03/23 11:15 84 12 136/90 84 L 05/03/23 11:10 88 25 H 98 05/03/23 11:00 136/90 05/03/23 11:00 85 25 H 98 05/03/23 10:50 86 24 100 05/03/23 10:40 87 24 99 05/03/23 10:40 86 14 140/87 99 05/03/23 10:30 87 23 99 05/03/23 10:30 140/87 05/03/23 10:20 92 H 25 H 98 05/03/23 10:10 95 H 23 98 05/03/23 10:00 90 25 H 98 05/03/23 10:00 137/90 05/03/23 09:50 89 22 98 05/03/23 09:49 90 23 97 05/03/23 09:49 129/82 05/03/23 09:48 90 15 129/82 97 05/03/23 09:40 90 19 98 05/03/23 09:35 93 H 12 132/76 97 05/03/23 09:30 89 22 97 05/03/23 09:30 132/76 05/03/23 09:20 92 H 21 96 05/03/23 09:10 92 H 19 97 05/03/23 09:00 91 H 22 95 05/03/23 09:00 121/82 05/03/23 08:50 94 H 18 95 05/03/23 08:46 96 H 05/03/23 08:40 93 H 21 96 05/03/23 08:39 92 H 15 112/80 96 05/03/23 08:30 94 H 22 96 05/03/23 08:30 112/80 05/03/23 08:20 94 H 21 95 05/03/23 08:10 93 H 21 96 05/03/23 08:05 94 H 15 119/72 95 05/03/23 08:00 95 H 21 96 05/03/23 08:00 119/72 05/03/23 07:50 98 H 19 96 05/03/23 07:35 36.8 C 05/03/23 07:08 101 H 12 109/66 95 05/03/23 06:49 103 H 22 96 05/03/23 06:47 102 H 22 134/70 95 05/03/23 06:47 37.9 C H 05/03/23 06:46 37.9 C H 05/03/23 04:47 38.6 C H 118 H 30 H 130/78 95 05/03/23 04:41 122 H O2 Del Method O2 Flow Rate 05/03/23 15:28 05/03/23 15:28 05/03/23 15:00 05/03/23 14:30 05/03/23 14:10 05/03/23 14:00 05/03/23 13:50 05/03/23 13:40 05/03/23 13:30 05/03/23 13:20 05/03/23 13:10 05/03/23 13:00 05/03/23 12:50 05/03/23 12:40 05/03/23 12:30 05/03/23 12:20 05/03/23 12:10 05/03/23 12:00 05/03/23 11:58 05/03/23 11:30 05/03/23 11:30 05/03/23 11:20 05/03/23 11:15 05/03/23 11:10 05/03/23 11:00 05/03/23 11:00 05/03/23 10:50 05/03/23 10:40 05/03/23 10:40 Room Air 05/03/23 10:30 05/03/23 10:30 05/03/23 10:20 05/03/23 10:10 05/03/23 10:00 05/03/23 10:00 05/03/23 09:50 05/03/23 09:49 05/03/23 09:49 05/03/23 09:48 Nasal Cannula 2 05/03/23 09:40 05/03/23 09:35 Room Air 05/03/23 09:30 05/03/23 09:30 05/03/23 09:20 05/03/23 09:10 05/03/23 09:00 05/03/23 09:00 05/03/23 08:50 05/03/23 08:46 05/03/23 08:40 05/03/23 08:39 05/03/23 08:30 05/03/23 08:30 05/03/23 08:20 05/03/23 08:10 05/03/23 08:05 05/03/23 08:00 05/03/23 08:00 05/03/23 07:50 05/03/23 07:35 05/03/23 07:08 Room Air 05/03/23 06:49 Room Air 05/03/23 06:47 Room Air 05/03/23 06:47 05/03/23 06:46 05/03/23 04:47 Nasal Cannula 2 05/03/23 04:41 Laboratory Results 05/03/23 04:49 05/03/23 04:49 Diagnostic Findings Chest X-Ray 05/03/23 05:02 XR chest 1V portable CLINICAL HISTORY: Sepsis TECHNIQUE: Single frontal radiograph of the chest was obtained. Comparison: Comparison is made to chest radiograph 02/26/2023 FINDINGS: Exam is limited by underpenetration. Calcified aortic knob is seen. The lungs are clear. No evidence of pleural effusion or pneumothorax. IMPRESSION: No acute abnormalities and in particular no radiographic evidence of pneumonia. ACT 112: Negative or not required by law. Electronically signed by: Mejia Moses M.D. 05/03/2023 10:30 AM Abdomen/Pelvis CT 05/03/23 05:08 CT abd pelvis IV con only CLINICAL HISTORY: ams, fever TECHNIQUE: Helical axial images of the abdomen and pelvis were obtained and displayed. Automated dose lowering techniques and/or adjustment according to patient size were utilized for this exam. This exam was performed with intravenous contrast. CT DOSE: 1996.94 mGy.cm COMPARISON: None available at the time of this dictation. FINDINGS: Lower chest: No acute abnormality. Liver: Suggestion of hepatic steatosis. Gallbladder and biliary tree: No calcified gallstones. Normal caliber wall. No intra- or extrahepatic biliary ductal dilation. Pancreas: Unremarkable, no focal lesions. Spleen: Unremarkable. Adrenals: Unremarkable. Kidneys and ureters: Unremarkable. Bladder: Limited evaluation due to underdistention. Reproductive organs: Unremarkable. Bowel: Fatty there is a small hiatal hernia. Lymph nodes Retroperitoneal: Unremarkable. Pelvic: Unremarkable. Mesenteric: Unremarkable. Peritoneum: Normal. Vessels: IVC filter is seen. Abdominal wall: Fatty Bones: Unremarkable. IMPRESSION: No acute abnormalities to explain nausea and vomiting, in particular no evidence of bowel obstruction. ACT 112: Negative or not required by law. Electronically signed by: Mejia Moses M.D. 05/03/2023 8:[address] 05/03/23 05:08 CT head/brain wo con CLINICAL HISTORY: ams Technique: Contiguous axial CT images of the head were acquired from the base of the skull to the vertex without intravenous contrast administration. Images were viewed in brain, subdural and bone windows. Automated dose lowering techniques and/or adjustment according to patient size were utilized for this exam. Comparison: None available at the time of this dictation. Findings: Ventriculomegaly is seen with a YARD MOTOR OPERATOR shunt catheter terminating in the left foramen of [place]. There is an extra-axial simple fluid density collection in the right frontotemporal convexity. There is minimal leftward midline shift of approximately 4 mm. Imaged portions of the paranasal sinuses and mastoid air cells are clear. The orbits appear normal. Postsurgical changes are seen in the right calvarium. Impression: Nonspecific right simple fluid density extra-axial collection. This may represent old epidural hematoma at this patient with right-sided postsurgical changes, versus arachnoid cyst. Correlation with surgical history outside imaging, if available, is recommended. No acute abnormalities are seen. ACT 112: Negative or not required by law. Electronically signed by: Mejia Moses M.D. 05/03/2023 8:22 AM Code Status & VTE Plan VTE Prophylaxis Plan VTE Prophylaxis will be ordered: Yes PG Care Time/CCT Total # of Minutes Spent Total Time Spent with Patient: Total time spent is greater than 50% in coordination of care (as documented) at patient's floor/unit and/or counseling patient: Coding Level of Care Code 60037 INT INP/OBS CARE MIN Diagnoses Sepsis A41.9 Acute metabolic encephalopathy G93.41 History of DVT (deep vein thrombosis) Z86.718 Hypothyroidism E03.9 YARD MOTOR OPERATOR (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) shunt status Z98.2 Seizure disorder G40.909 Congestive heart failure I50.9 Cellulitis of right leg L03.115 Hypokalemia E87.6 Hypomagnesemia E83.42 Normocytic anemia D64.9 GERD without esophagitis K21.9 Chronic anticoagulation Z79.01
[2023-05-03] MEDS: LACOSAMIDE 50 MG TABLET PO SCH (21:59)
[2023-05-03] MEDS: APIXABAN 5 MG TABLET PO SCH (21:59)
[2023-05-03] MEDS: SENNA 8.6 MG TAB PO SCH (22:00)
[2023-05-04] MEDS: LEVOTHYROXINE SODIUM 25 MCG TABLET PO SCH (06:09)
[2023-05-04 06:40] LABS: Hematocrit (blood only) 28.7 % (37.0-47.0); Hemoglobin 8.2 g/dl (12.0-16.0); Mean Corpuscular Hemoglobin 22.8 pg (25.0-34.0); Mean Corpuscular Hgb Conc 28.6 g/dL (32.0-36.0); Mean Corpuscular Volume 79.9 fL (80.0-100.0); Platelet Count 197 K/uL (130-400); RDW Coefficient of Variation 18.8 % (11.5-14.5); RDW Standard Deviation 54.4 fL (36.4-46.3); Red Blood Count 3.59 M/uL (4.20-5.40); White Blood Count 12.65 K/ul (4.8-10.8)
[2023-05-04 07:20] LABS: Albumin Globulin Ratio 0.9 (0.9-2); BUN Creatinine Ratio 20.3 (10-20); Bilirubin,Total 0.6 mg/dl (0.2-1.0); Calcium 8.9 mg/dl (8.6-10.3); Est GFR (African American) 117.3 ml/min; Est GFR (Non-African American) 101.2 ml/min; Globulin 3.4 gm/dl (2.5-4.0); Magnesium 1.9 mg/dl (1.7-2.4); Potassium 4.1 mmol/L (3.5-5.1); Total Protein 6.4 gm/dl (6.0-8.3)
--- NOTE | 2023-05-04 07:54 | Hospitalist Progress Note ---
Date of Service May 04, 2023 Assessment & Plan (1) Sepsis: Plan: admitted with sepsis unclear source causing acute organ dysfunction: acute metabolic encephalopathy. Tmax 38.6, heart rate 118, white blood count 21,000, mildly elevated lactate and procalcitonin source is probably right lower extremity cellulitis. however, it is not particularly impressive and she has been on oral doxycycline since 04/27 so other possibilities need to be considered she is tachypneic and could have aspiration pneumonia or pneumonitis however not hypoxic and chest x-ray is clear, the limited quality film due to hypoventilation and body habitus blood cultures were drawn and are pending. UA negative, respiratory BioFire negative, COVID/flu negative she had 1 episode of emesis but CT abdomen and pelvis are negative and abdominal exam is benign, LFTs benign therefore unlikely to have abdominal source of sepsis. eating well now considered FORCE DISPATCHER shunt infection however her fever and tachycardia as well as mental status normalized rapidly so this seems very unlikely -continue cefepime, monitor blood cultures. leukocytosis improved 21-->12K, procal 1.7-->2.2. afebrile and on room air overnight -leg exam stable - some patchy erythema tracking proximally seems more consistent with cellulitis presentation -MRSA nasal ordered, was not done, MRSA unlikely so continue without MRSA coverage (2) Acute metabolic encephalopathy: Plan: See above Note history of FORCE DISPATCHER shunt and seizure disorder Avoid sedating/neurotoxic medications -abg was obtained and hypercarbia ruled out -CT head reviewed - chronic changes present: "Nonspecific right simple fluid density extra-axial collection. 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 MUCH more alert 05/04 and may be at baseline. 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: Plan: see above (6) Seizure disorder: Plan: Continue lacosamide No seizures have been observed/reported (7) Congestive heart failure: Plan: Chronic diastolic heart failure Echo 02/27 with normal EF -caution to avoid fluid overload (8) Cellulitis of right leg: Plan: See above (9) Hypokalemia: Plan: Replaced (10) Hypomagnesemia: Plan: Mag 1.4 Replaced with 1g IV by ED and I ordered an additional 1g IV -normal 1.9 on 05/04 (11) Normocytic anemia: Plan: microcytic anemia, chronic dilutional drop overnight -check iron stores iron mildly low will start oral supplement qod, B12 -outpatient follow up (12) GERD without esophagitis: Plan: cont PPI (13) Chronic anticoagulation: Plan: apixaban Plan Depression: sister reports doing much better since starting prozac a month ago DVT ppx: apixaban Code: full code according to [facility] paperwork Dispo: can transfer out of PCU, resident of [facility] but family refuses return to that facility. Until last few months was living independently previous four years. updated her sister Selin by phone 05/04 x 10 minutes Admission and Anticipated Discharge Date Admission Date: May 03, 2023 Subjective afebrile and on room air overnight much more alert today. able to give reasonable history and oriented to hospital and current living situation R lower leg is mildly painful Denies cough SOB CP abdominal pain and N/V. no dysuria Physical Exam 2 Physical Exam: PHYSICAL EXAMINATION Last 24h vital signs reviewed, see documentation in flowsheet General: arouses to voice and became alert, no distress HEENT: Normocephalic, atraumatic, pupils round and equal, sclerae anicteric, no conjunctival injection, moist mucus membranes. Lungs: Normal respiratory effort. Clear to auscultation bilaterally. No RRW Heart: Regular rate and rhythm, no murmurs. No JVD Abdomen: Soft, nontender, nondistended. Bowel sounds present. Extremities: Warm, dry, well-perfused. 2+ extremity edema. hemosiderosis and cobblestoning consistent with chronic venous stasis. right lower ball with area of excoriations shallow wounds and erythema, no drainage, no purulence - unchanged 05/04 except some light pink patchy erythema proximal anterior ball now apparent Neuro: awake and alert, oriented to hospital and situation, face symmetric, left hand and arm are weak which she says is her baseline Psych: normal affect and behavior Results & Data Results & Data Vital Signs (Past 12 Hours) Vital Signs Temp Pulse Resp BP Pulse Ox O2 Del Method 05/04/23 04:02 37.1 C 80 18 117/76 92 Room Air 05/03/23 23:01 37.1 C 89 20 125/59 L 94 Room Air Laboratory Results 05/04/23 06:15 05/04/23 06:15 PG Care Time/CCT Total # of Minutes Spent Total Time Spent with Patient: I personally spent: 50 minutes today on clinical care activities including: reviewing chart notes and vital signs reviewing labs examining and counseling the patient counseling the patient's family writing orders documentation Coding Level of Care Code 62057 SUB INP/OBS CARE 3/50MIN Diagnoses Sepsis A41.9 Sepsis acute organ dysfunction status: unspecified Sepsis type: sepsis due to unspecified organism Acute metabolic encephalopathy G93.41 History of DVT (deep vein thrombosis) Z86.718 Hypothyroidism E03.9 FORCE DISPATCHER (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) shunt status Z98.2 Seizure disorder G40.909 Congestive heart failure I50.9 Cellulitis of right leg L03.115 Hypokalemia E87.6 Hypomagnesemia E83.42 Normocytic anemia D64.9 GERD without esophagitis K21.9 Chronic anticoagulation Z79.01 (1) Sepsis Sepsis acute organ dysfunction status: unspecified Sepsis type: sepsis due to unspecified organism Qualified Code(s): A41.9 - Sepsis, unspecified organism
[2023-05-04] MEDS: ASPIRIN 81 MG CHEW PO SCH (08:39)
[2023-05-04] MEDS: PANTOprazole 40 MG TAB PO SCH (08:39)
[2023-05-04] MEDS: MULTIVITAMIN TAB PO SCH (08:39)
[2023-05-04] MEDS: POTASSIUM CHLORIDE CRTAB 20 MEQ TABCR PO SCH (08:40)
[2023-05-04] MEDS: FLUoxetine HCL 20 MG CAP PO SCH (08:40)
[2023-05-04] MEDS: FOLIC ACID 1 MG TAB PO SCH (08:40)
[2023-05-04 08:49] LABS: Ferritin 58.1 ng/ml (8-388)
[2023-05-04] MEDS: ACETAMINOPHEN 325 MG TAB PO PRN (21:16)
[2023-05-05] MEDS: FERROUS GLUCONATE 324 MG TAB PO SCH (09:54)
--- NOTE | 2023-05-05 16:33 | Hospitalist Progress Note ---
Date of Service May 05, 2023 Assessment & Plan (1) Sepsis: Plan: admitted with sepsis due to RLE cellulitis causing acute organ dysfunction: acute metabolic encephalopathy. sepsis resolved, cellulitis improving, mentation improved to baseline -continue cefepime, monitor blood cultures. leukocytosis improved 21-->12K, procal 1.7-->2.2. 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, since brain tumor resection -resolved and mental status appears to be at baseline. 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 SETTER (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) shunt status: Plan: see above (6) Seizure disorder: Plan: Continue lacosamide No seizures have been observed/reported (7) Congestive heart failure: Plan: Chronic diastolic heart failure Echo 02/27 with normal EF -caution to avoid fluid overload -consider gentle diuresis in next 24h for leg edema (8) Cellulitis of right leg: Plan: See above (9) Hypokalemia: Plan: Replaced (10) Hypomagnesemia: Plan: Mag 1.4 Replaced with 1g IV by ED and I ordered an additional 1g IV -normal 1.9 on 05/04 (11) Normocytic anemia: Plan: microcytic anemia, chronic dilutional drop after admission, no e/o bleeding -check iron stores iron mildly low will start oral supplement qod, B12 -outpatient follow up (12) GERD without esophagitis: Plan: cont PPI (13) Chronic anticoagulation: Plan: apixaban Plan Depression: sister reports doing much better since starting prozac a month ago not very participatory with nursing/therapy today, will increase dose from 20-->30 mg on 05/05 and assess response DVT ppx: apixaban Code: full code according to SNF paperwork Dispo: can transfer out of PCU, resident of [facility] but family refuses return to that facility. Until last few months was living independently previous four years. updated her sister Selin by phone 05/04 x 10 minutes Admission and Anticipated Discharge Date Admission Date: May 03, 2023 Subjective Awake and alert. R lower leg not painful today. Watching TV. No shortness of breath CP or cough. Eating well without abdominal pain. Physical Exam Physical Exam: PHYSICAL EXAMINATION Last 24h vital signs reviewed, see documentation in flowsheet General: was sleeping but arouses to voice and became alert, no distress HEENT: Normocephalic, atraumatic, pupils round and equal, sclerae anicteric, no conjunctival injection, moist mucus membranes. Lungs: Normal respiratory effort. Clear to auscultation bilaterally. No RRW Heart: Regular rate and rhythm, no murmurs. No JVD Abdomen: Soft, nontender, nondistended. Bowel sounds present. Extremities: Warm, dry, well-perfused. 2+ extremity edema. hemosiderosis and cobblestoning consistent with chronic venous stasis. right lower ball with area of excoriations shallow wounds and erythema, no drainage, no purulence - unchanged 05/05 Neuro: awake and alert, oriented to hospital and situation, face symmetric, left hand and arm are weak which she says is her baseline Psych: normal affect and behavior Results & Data Results & Data Vital Signs (Past 12 Hours) Vital Signs Temp Pulse Pulse Resp BP Pulse Ox O2 Del Method 05/05/23 13:15 Room Air 05/05/23 11:00 36.7 C 81 20 124/66 94 Room Air 05/05/23 08:00 73 05/05/23 07:24 36.6 C 79 18 124/69 95 Room Air PG Care Time/CCT Total # of Minutes Spent Total Time Spent with Patient: Total time spent is greater than 50% in coordination of care (as documented) at patient's floor/unit and/or counseling patient: Coding Level of Care Code 50076 SUB INP/OBS CARE 2/35MIN Diagnoses Sepsis A41.9 Sepsis acute organ dysfunction status: unspecified Sepsis type: sepsis due to unspecified organism Acute metabolic encephalopathy G93.41 History of DVT (deep vein thrombosis) Z86.718 Hypothyroidism E03.9 CORK INSULATION SETTER (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) shunt status Z98.2 Seizure disorder G40.909 Congestive heart failure I50.9 Cellulitis of right leg L03.115 Hypokalemia E87.6 Hypomagnesemia E83.42 Normocytic anemia D64.9 GERD without esophagitis K21.9 Chronic anticoagulation Z79.01 (1) Sepsis Sepsis acute organ dysfunction status: unspecified Sepsis type: sepsis due to unspecified organism Qualified Code(s): A41.9 - Sepsis, unspecified organism
[2023-05-06 06:30] LABS: Hematocrit (blood only) 28.8 % (37.0-47.0); Hemoglobin 8.4 g/dl (12.0-16.0); Mean Corpuscular Hemoglobin 22.7 pg (25.0-34.0); Mean Corpuscular Hgb Conc 29.2 g/dL (32.0-36.0); Mean Corpuscular Volume 77.8 fL (80.0-100.0); Nucleated RBC # (auto) 0.02 K/uL (0.00-0.12); Nucleated RBC % (auto) 0.3 %; Platelet Count 248 K/uL (130-400); RDW Coefficient of Variation 18.6 % (11.5-14.5); RDW Standard Deviation 52.7 fL (36.4-46.3); White Blood Count 6.12 K/ul (4.8-10.8)
[2023-05-06 06:50] LABS: BUN Creatinine Ratio 13.8 (10-20); Est GFR (African American) 121.1 ml/min; Est GFR (Non-African American) 104.5 ml/min; Potassium 3.9 mmol/L (3.5-5.1)
[2023-05-06] MEDS: FLUoxetine HCL 10 MG CAP PO SCH (08:43)
--- NOTE | 2023-05-06 14:42 | Hospitalist Progress Note ---
Date of Service May 06, 2023 Assessment & Plan (1) Sepsis: Plan: admitted with sepsis due to RLE cellulitis causing acute organ dysfunction: acute metabolic encephalopathy. sepsis and acute encephalopathy have resolved. cellulitis has nearly resolved as of 05/06 -treated with cefepime since she failed oral doxycycline prior to admission, will change to oral cefuroxime -monitor blood cultures. 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, since brain tumor resection -resolved and mental status appears to be at baseline. 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: Plan: see above (6) Seizure disorder: Plan: Continue lacosamide No seizures have been observed/reported (7) Congestive heart failure: Plan: Chronic diastolic heart failure Echo 02/27 with normal EF -start trial of low dose lasix for significant extremity edema (8) Cellulitis of right leg: Plan: See above (9) Hypokalemia: Plan: Replaced (10) Hypomagnesemia: Plan: Mag 1.4 Replaced with 1g IV by ED and I ordered an additional 1g IV -normal 1.9 on 05/04 (11) Normocytic anemia: Plan: microcytic anemia, chronic dilutional drop after admission, no e/o bleeding -check iron stores iron mildly low will start oral supplement qod, B12 362 -outpatient follow up (12) GERD without esophagitis: Plan: cont PPI (13) Chronic anticoagulation: Plan: apixaban Plan Depression: sister reports doing much better since starting prozac a month ago not very participatory with nursing/therapy 05/05, will increase dose from 20-->30 mg on 05/05 and assess response DVT ppx: apixaban Code: full code according to SNF paperwork Dispo: can transfer out of PCU, resident of [facility] but family refuses return to that facility. Until last few months was living independently previous four years. updated her sister Selin by phone 05/04 x 10 minutes discussed with care coordination Admission and Anticipated Discharge Date Admission Date: May 03, 2023 Subjective Cassy is awake today and doing well without complaints. RLE no longer painful, she says it is itchy I reminded her not to scratch it. Physical Exam 2 Physical Exam: PHYSICAL EXAMINATION Last 24h vital signs reviewed, see documentation in flowsheet General: awake alert, no distress HEENT: Normocephalic, atraumatic, pupils round and equal, sclerae anicteric, no conjunctival injection, moist mucus membranes. Lungs: Normal respiratory effort. Clear to auscultation bilaterally. No RRW Heart: Regular rate and rhythm, no murmurs. No JVD Abdomen: Soft, nontender, nondistended. Bowel sounds present. Extremities: Warm, dry, well-perfused. 2+ extremity edema. hemosiderosis and cobblestoning consistent with chronic venous stasis. right lower ball with area of excoriations shallow wounds and erythema, no drainage, no purulence - erythema improved/resolving 05/06 Neuro: awake and alert, oriented to hospital and situation, face symmetric, left hand and arm are weak which she says is her baseline Psych: normal affect and behavior Results & Data Results & Data Vital Signs (Past 12 Hours) Vital Signs Temp Pulse Pulse Resp BP Pulse Ox O2 Del Method 05/06/23 11:05 36.2 C L 77 18 116/73 95 Room Air 05/06/23 08:00 Room Air 05/06/23 07:31 36.6 C 70 18 127/77 95 Room Air 05/06/23 07:29 70 05/06/23 04:09 36.7 C 69 18 120/78 93 Room Air Laboratory Results 05/06/23 05:41 05/06/23 05:41 PG Care Time/CCT Total # of Minutes Spent Total Time Spent with Patient: Total time spent is greater than 50% in coordination of care (as documented) at patient's floor/unit and/or counseling patient: Coding Level of Care Code 47640 SUB INP/OBS CARE 2/35MIN Diagnoses Sepsis A41.9 Sepsis acute organ dysfunction status: unspecified Sepsis type: sepsis due to unspecified organism Acute metabolic encephalopathy G93.41 History of DVT (deep vein thrombosis) Z86.718 Hypothyroidism E03.9 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
[2023-05-06] MEDS: cefUROXime axetil 500 MG TAB PO SCH (20:03)
[2023-05-07] MEDS: FUROSEMIDE 20 MG TAB PO SCH (08:36)
[2023-05-07] MEDS: IRON SUCROSE 300 MG in SODIUM CHLORIDE 0.9% 250 ML IV ONE (09:17)
[2023-05-07] MEDS: PANTOprazole 40 MG TAB PO STA (15:21)
--- NOTE | 2023-05-07 17:32 | XRay Report ---
XR KUB/Abdomen 1 view CLINICAL HISTORY: poor appetite, bed-bound, impaction? TECHNIQUE: 1 view of the abdomen was obtained. Comparison: Comparison is made to CT abdomen pelvis 05/03/2023 FINDINGS: Exam is limited by underpenetration. The osseous structures are grossly unremarkable. The bowel gas p attern is nonobstructive. A moderate amount of stool is noted within the large bowel. IMPRESSION: Moderate stool burden without evidence of fecal impaction. ACT 112: Negative or not required by law. Electronically signed by: Mejia Moses M.D. 05/07/2023 5:30 PM
--- NOTE | 2023-05-07 20:49 | Hospitalist Progress Note ---
Date of Service May 07, 2023 Assessment & Plan (1) Sepsis: Plan: 2nd RLE cellulitis - resolved blood cx's negative marked leukocytosis resolved (21 down to 6) IV cefepime initially used; now over to cefuroxime day # 5 of Rx plan 10 days in total of IV/PO abx (2) Cellulitis of right leg: Plan: resolved see #1 (3) Acute metabolic encephalopathy: Plan: presented with such presumed 2nd to #1, #[address] Muro her mental status had improved today she was awake but unable to communicate normally; long pauses before resp onding, etc speaking with nursing they report she was like this yesterday as well ? also, she gets tired after am med pass ? 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 would need to check with SNF to see where last head CT was performed, etc she appears to be new to the [facility] (7) Seizure disorder: Plan: Continue lacosamide No seizures have been observed/reported per nursing (8) Congestive heart failure: Plan: Chronic diastolic heart failure Echo 02/27 with normal EF Cont lasix for LE edema but much of it looks like lymphedema which may not r espond to diuretics that well (9) Hypokalemia: Plan: Replaced check BMP am (10) Hypomagnesemia: Plan: replaced resolved (11) Normocytic anemia: Plan: ferritin 58 transferrin low-normal suspect she is Fe deficient will give venofer 300mg IV x 1 consider repeat tomorrow repeat CBC am (12) GERD without esophagitis: Plan: cont PPI (13) Chronic anticoagulation: Plan: apixaban BID (14) Depression: Plan: initiated prozac 1 month ago by report Dr Muro increased her dose to 30mg/day a few days ago contributing to confusion?? (15) History of benign brain tumor: Plan: details uncertain left sided hemiplegia is presumably due to brain injury from resection (16) Morbid obesity with BMI of 45.0-49.9, adult: Plan: BMI 46 Plan resident of [facility] but family refuses return to that facility. By report was living independently the previous four years. will update family tomorrow Admission and Anticipated Discharge Date Admission Date: May 03, 2023 Subjective patient awake during the visit watching TV -- but confused when I asked her questions there were long pauses before she gave a response many times she didn't even respond - she just looked at me no obvious seizure activity (no lip smacking, staring, eye fluttering, etc) no tonic-clonic activity per nursing staff she has been like this most of today, especially after receiving her am medications she was unable to provide any other meaningful history or ROS Review of Systems Review of Systems: Unobtainable due to cognitive status Physical Exam Physical Exam: gen - obese, NAD - but confused (eyes open, looking at the TV, but not really talking) eyes - PERRL mouth - MMM neck - no JVD heart - RRR, s1 s2 lungs - CTA b/l abd - soft NT ND BS+ ext - 1-2+ edema/lymphedema b/l, pulses 2+ b/l neuro - hemiplegia LUE/LLE; moves right arm spontaneously skin - stasis changes b/l shins but NO superimposed cellulitis of RLE; scratch cervantes present over both shins Results & Data Results & Data Vital Signs (Past 12 Hours) Vital Signs Temp Pulse Pulse Resp BP BP Pulse Ox 05/07/23 20:36 36.7 C 75 17 125/76 92 05/07/23 20:11 36.4 C L 70 18 124/79 96 05/07/23 15:33 68 05/07/23 15:06 36.9 C 76 16 118/79 91 05/07/23 11:45 36.5 C 66 18 141/85 H 95 O2 Del Method 05/07/23 20:36 Room Air 05/07/23 20:11 Room Air 05/07/23 15:33 05/07/23 15:06 Room Air 05/07/23 11:45 Room Air Laboratory Results Laboratory Results 05/07/23 00:00 WBC RBC Hgb Hct MCV MCH MCHC RDW Std Deviation RDW Coeff of Neo Plt Count MPV Immature Gran % (Auto) Neut % (Auto) Lymph % (Auto) [place] % (Auto) Eos % (Auto) Baso % (Auto) Neut # (Auto) Lymph # (Auto) [place] # (Auto) Eos # (Auto) Baso # (Auto) Immature Gran # (Auto) Absolute Nucleated RBC Nucleated RBC % (auto) VBG pH VBG pCO2 VBG pO2 VBG HCO3 VBG O2 Saturation VBG Base Excess Sodium Potassium Chloride Carbon Dioxide Anion Gap BUN Creatinine Est Cr Clr Drug Dosing Est GFR ( Amer) Est GFR (Non-Af Amer) BUN/Creatinine Ratio Glucose Calcium Total Bilirubin AST ALT Alkaline Phosphatase Ammonia Total Protein Albumin Globulin Albumin/Globulin Ratio Urine Color Dark Yellow Urine Appearance Clear Urine pH 5.5 Ur Specific Alfred 1.025 Urine Protein Negative Urine Glucose (UA) Negative Urine Ketones Trace H Urine Blood 2+ H Urine Nitrite Negative Urine Bilirubin Negative Urine Urobilinogen Negative Ur Leukocyte Esterase Negative Urine WBC (Auto) 1-5 Urine RBC (Auto) 10-30 H U Hyaline Cast (Auto) 1-5 U Epithel Cells (Auto) 10-20 H Urine Bacteria (Auto) Negative PG Care Time/CCT Total # of Minutes Spent Total Time Spent with Patient: Total time spent is greater than 50% in coordination of care (as documented) at patient's floor/unit and/or counseling patient: Coding Level of Care Code 67387 SUB INP/OBS CARE 2/35MIN Diagnoses Sepsis A41.9 Sepsis acute organ dysfunction status: unspecified Sepsis type: sepsis due to unspecified organism Cellulitis of right leg L03.115 Acute metabolic encephalopathy G93.41 History of DVT (deep vein thrombosis) Z86.718 Hypothyroidism E03.9 FILING OR REGISTRY CLERK (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) shunt status Z98.2 Seizure disorder G40.909 Congestive heart failure I50.9 Hypokalemia E87.6 Hypomagnesemia E83.42 Normocytic anemia D64.9 GERD without esophagitis K21.9 Chronic anticoagulation Z79.01 Depression F32.A History of benign brain tumor Z86.011 Morbid obesity with BMI of 45.0-49.9, adult E66.01; Z68.42 (1) Sepsis Sepsis acute organ dysfunction status: unspecified Sepsis type: sepsis due to unspecified organism Qualified Code(s): A41.9 - Sepsis, unspecified organism
[2023-05-07] MEDS: POLYETHYLENE (MIRALAX) 17 GM PACK PO SCH (21:43)
[2023-05-08 00:18] LABS: Appearance Urine Clear (Clear); Bacteria Urine Automated Negative (Negative); Bilirubin Urine Negative (Negative); Blood Urine 2+ (Negative); Color Urine Dark Yellow; Glucose Urine UA Negative (Negative); Ketones Urine Trace (Negative); Leukocyte Esterase Urine Negative (Negative); Nitrite Urine Negative (Negative); Protein Urine Negative (Negative); Specific Gravity Urine 1.025 (1.000-1.030); Urobilinogen Urine Negative (Negative); pH Urine 5.5 (4.5-7.5)
--- NOTE | 2023-05-08 00:18 | Communication Note ---
Date of Service: May 08, 2023 I was contacted by nursing at 8:43pm for concerns of change in mental status. The patient's sister had concerns that the patient was repeating herself which was different/unusual for her. I went to bedside and evaluated the patient. Her vital signs were stable and she was afebrile. On exam, she was noted to have left side hemiparesis (which per chart review and confirmed by sister is a known, chronic finding) but no other focal neurologic deficits. She answered questions appropriately although did repeat herself at times. I reviewed signout from the daytime hospitalist which provided additional context for the patient's current clinical condition. I reviewed her chart and decided to order a CBC and metabolic panel to ensure there were no significant laboratory value changes, I also added seizure precautions (as she has a history of seizure disorder) as well as q2h neuro checks for the night. I called the patient's sister as requested, patient's sister (Selin) also expressed concern that when she visited the patient the day prior, her urine was an abnormal color. I discussed that we could order a urinalysis in addition to the blood work I had already ordered. Discussed that her symptoms could be due to hospital delirium or related to metabolic encephalopathy related to her recent cellulitis. Patient's sister expressed concern that patient had not been like this prior and has been hospitalized many times before without experiencing this, I explained that delirium can wax and wane day to day however we would still be planning to m onitor her closely with routine neuro checks and blood work/UA as described above. Resident Activity Tracking Resident Involvement: Resident Care Provided Care Provided: Adult Hospital Medicine
[2023-05-08 01:04] LABS: Basophils # (auto) 0.02 K/uL (0.00-0.20); Basophils % (auto) 0.3 %; Eosinophils # (auto) 0.26 K/uL (0.00-0.50); Eosinophils % (auto) 4.2 %; Hematocrit (blood only) 29.8 % (37.0-47.0); Hemoglobin 8.9 g/dl (12.0-16.0); Immature Granulocytes # (auto) 0.18 K/uL (0.01-0.20); Immature Granulocytes % (auto) 2.9 %; Lymphocytes # (auto) 1.74 K/uL (1.20-3.40); Lymphocytes % (auto) 27.8 %; Mean Corpuscular Hemoglobin 22.9 pg (25.0-34.0); Mean Corpuscular Hgb Conc 29.9 g/dL (32.0-36.0); Mean Corpuscular Volume 76.6 fL (80.0-100.0); Mean Platelet Volume 10.5 fL (9.4-12.4); Monocytes # (auto) 0.39 K/uL (0.11-0.59); Monocytes % (auto) 6.2 %; Neutrophils # (auto) 3.67 K/uL (1.40-6.50); Neutrophils % (auto) 58.6 %; Nucleated RBC # (auto) 0.03 K/uL (0.00-0.12); Nucleated RBC % (auto) 0.5 %; Platelet Count 247 K/uL (130-400); RDW Coefficient of Variation 18.8 % (11.5-14.5); RDW Standard Deviation 51.1 fL (36.4-46.3); Red Blood Count 3.89 M/uL (4.20-5.40); White Blood Count 6.26 K/ul (4.8-10.8)
[2023-05-08 01:11] LABS: Albumin Level 3.1 gm/dl (3.4-5.0); Bilirubin,Total 0.3 mg/dl (0.2-1.0); Calcium 8.8 mg/dl (8.6-10.3); Potassium 4.1 mmol/L (3.5-5.1)
[2023-05-08 01:17] LABS: Albumin Globulin Ratio 0.9 (0.9-2); BUN Creatinine Ratio 13.3 (10-20); Est GFR (African American) 119.8 ml/min; Est GFR (Non-African American) 103.3 ml/min; Globulin 3.5 gm/dl (2.5-4.0); Total Protein 6.6 gm/dl (6.0-8.3)
[2023-05-08 06:26] LABS: Base Excess VBG 5.4 mEq/L; HCO3 VBG 30 mmol/L; Oxygen Saturation VBG 97.1 %; PCO2 VBG 42 mmHg (38-50); PO2 VBG 81 mmHg; pH VBG 7.46 (7.36-7.41)
[2023-05-08 06:29] LABS: Hematocrit (blood only) 30.4 % (37.0-47.0); Hemoglobin 8.8 g/dl (12.0-16.0); Mean Corpuscular Hemoglobin 22.7 pg (25.0-34.0); Mean Corpuscular Hgb Conc 28.9 g/dL (32.0-36.0); Mean Corpuscular Volume 78.4 fL (80.0-100.0); Mean Platelet Volume 10.3 fL (9.4-12.4); Platelet Count 262 K/uL (130-400); RDW Coefficient of Variation 18.9 % (11.5-14.5); RDW Standard Deviation 53.1 fL (36.4-46.3); Red Blood Count 3.88 M/uL (4.20-5.40); White Blood Count 6.31 K/ul (4.8-10.8)
[2023-05-08 06:54] LABS: BUN Creatinine Ratio 17.6 (10-20); Calcium 9.2 mg/dl (8.6-10.3); Creatinine Clr Calc Pharmacy 135.3 ml/min; Est GFR (African American) 126.3 ml/min; Potassium 3.8 mmol/L (3.5-5.1)
--- NOTE | 2023-05-08 13:12 | Electroencephalogram ---
EEG Procedure Note Date of Service May 08, 2023 Start / End Times Start Time: 1219 End Time: [address] kelly stanton History confused Home Medication List Medication Instructions Recorded Confirmed Type acetaminophen 325 mg tablet 650 mg PO Q6H PRN PAIN/FEVER 02/26/23 05/03/23 History (Tylenol) apixaban 5 mg tablet (Eliquis) 5 mg PO BID 02/26/23 05/03/23 History folic acid 1 mg tablet 1 mg PO DAILY 02/26/23 05/03/23 History furosemide 40 mg tablet 40 mg PO DAILY 02/26/23 05/03/23 History lacosamide 100 mg tablet 100 mg PO Q12H 02/26/23 05/03/23 History levothyroxine 25 mcg tablet 25 mcg PO DAILY 02/26/23 05/03/23 History multivitamin 1 tab PO QAM 02/26/23 05/03/23 History oxybutynin chloride 15 mg 15 mg PO DAILY 02/26/23 05/03/23 History tablet,extended release 24 hr pantoprazole 40 mg tablet,delayed 40 mg PO DAILY 02/26/23 05/03/23 History release potassium chloride 10 mEq 20 meq PO DAILY 02/26/23 05/03/23 History capsule,extended release sennosides 8.6 mg tablet (Senokot) 17.2 mg PO HS 02/26/23 05/03/23 History aspirin 81 mg chewable tablet 81 mg PO DAILY 05/03/23 05/03/23 History bisacodyl 10 mg rectal suppository 10 mg OR DAILY PRN Constipation 05/03/23 05/03/23 History (Dulcolax (bisacodyl)) doxycycline hyclate 100 mg tablet 100 mg PO BID 05/03/23 05/03/23 History fluoxetine 10 mg capsule 20 mg PO DAILY 05/03/23 05/03/23 History hydroxyzine HCl 25 mg tablet 25 mg PO Q6H PRN Itching 05/03/23 05/03/23 History lorazepam 2 mg/mL injection syringe 1 mg IM .[id number] PRN epilepsy 05/03/23 05/03/23 History magnesium hydroxide 400 mg/5 mL 2,400 mg PO DAILY PRN Constipation 05/03/23 History oral suspension (Milk of Magnesia) sodium phosphates 19 gram-7 118 ml OR DAILY PRN Constipation 05/03/23 05/03/23 History gram/118 mL enema (Enema) Inpatient Medication List Acetaminophen (Acetaminophen 325 Mg Tab) 650 mg PO Q6H PRN PRN Reason: Pain or Fever Stop: 06/02/23 11:22 Last Admin: 05/08/23 09:06 Dose: 650 mg Documented By: Admin: 05/05/23 20:39 Dose: 650 mg Documented By: Admin: 05/04/23 21:16 Dose: 650 mg Documented By: RENETTA Apixaban (Apixaban 5 Mg Tablet) 5 mg PO BID [facility] Stop: 06/02/23 20:59 Last Admin: 05/08/23 08:07 Dose: 5 mg Documented By: Admin: 05/07/23 21:40 Dose: 5 mg Documented By: Admin: 05/07/23 08:36 Dose: 5 mg Documented By: Admin: 05/06/23 20:03 Dose: 5 mg Documented By: Admin: 05/06/23 08:43 Dose: 5 mg Documented By: Admin: 05/05/23 20:39 Dose: 5 mg Documented By: Admin: 05/05/23 09:53 Dose: 5 mg Documented By: Admin: 05/04/23 21:18 Dose: 5 mg Documented By: Admin: 05/04/23 08:40 Dose: 5 mg Documented By: Admin: 05/03/23 21:59 Dose: 5 mg Documented By: RENETTA Aspirin (Aspirin 81 Mg Chew) 81 mg PO DAILY [facility] Stop: 06/03/23 08:59 Last Admin: 05/08/23 09:06 Dose: 81 mg Documented By: Admin: 05/07/23 08:40 Dose: 81 mg Documented By: Admin: 05/06/23 08:51 Dose: 81 mg Documented By: Admin: 05/05/23 10:23 Dose: 81 mg Documented By: Admin: 05/04/23 08:39 Dose: 81 mg Documented By: TERRY Cefuroxime Axetil (Cefuroxime Axetil 500 Mg Tab) 500 mg PO BID [facility] Stop: 05/09/23 21:59 Last Admin: 05/08/23 08:07 Dose: 500 mg Documented By: Admin: 05/07/23 21:41 Dose: 500 mg Documented By: Admin: 05/07/23 08:36 Dose: 500 mg Documented By: Admin: 05/06/23 20:03 Dose: 500 mg Documented By: ESE Ferrous Gluconate (Ferrous Gluconate 324 Mg Tab) 324 mg PO Q48H [facility] Stop: 06/04/23 08:59 Last Admin: 05/07/23 08:36 Dose: 324 mg Documented By: Admin: 05/05/23 09:54 Dose: 324 mg Documented By: CAL Fluoxetine HCl (Fluoxetine Hcl 10 Mg Cap) 30 mg PO DAILY [facility] Stop: 06/05/23 08:59 Last Admin: 05/08/23 08:07 Dose: 30 mg Documented By: Admin: 05/07/23 08:36 Dose: 30 mg Documented By: Admin: 05/06/23 08:43 Dose: 30 mg Documented By: BENJAMIN Folic Acid (Folic Acid 1 Mg Tab) 1 mg PO DAILY [facility] Stop: 06/03/23 08:59 Last Admin: 05/08/23 08:07 Dose: 1 mg Documented By: Admin: 05/07/23 08:36 Dose: 1 mg Documented By: Admin: 05/06/23 08:43 Dose: 1 mg Documented By: Admin: 05/05/23 09:54 Dose: 1 mg Documented By: Admin: 05/04/23 08:40 Dose: 1 mg Documented By: TERRY Furosemide (Furosemide 20 Mg Tab) 20 mg PO QAM [facility] Stop: 06/06/23 08:59 Last Admin: 05/08/23 08:07 Dose: 20 mg Documented By: Admin: 05/07/23 08:36 Dose: 20 mg Documented By: BENAJMIN Lacosamide (Lacosamide 50 Mg Tablet) 100 mg PO Q12H [facility] Stop: 06/02/23 20:59 Last Admin: 05/08/23 09:53 Dose: 100 mg Documented By: Admin: 05/07/23 21:40 Dose: 100 mg Documented By: Admin: 05/07/23 09:17 Dose: 100 mg Documented By: Admin: 05/06/23 20:38 Dose: 100 mg Documented By: Admin: 05/06/23 09:33 Dose: 100 mg Documented By: Admin: 05/05/23 20:40 Dose: 100 mg Documented By: Admin: 05/05/23 10:23 Dose: 100 mg Documented By: Admin: 05/04/23 21:17 Dose: 100 mg Documented By: Admin: 05/04/23 08:55 Dose: 100 mg Documented By: Admin: 05/03/23 21:59 Dose: 100 mg Documented By: RENETTA Levothyroxine Sodium (Levothyroxine Sodium 25 Mcg Tablet) 25 mcg PO DAILYBB [facility] Stop: 06/03/23 06:29 Last Admin: 05/08/23 05:33 Dose: 25 mcg Documented By: Admin: 05/07/23 06:18 Dose: 25 mcg Documented By: Admin: 05/06/23 05:29 Dose: 25 mcg Documented By: Admin: 05/05/23 05:58 Dose: 25 mcg Documented By: Admin: 05/04/23 06:09 Dose: 25 mcg Documented By: RENETTA Multivitamins (Multivitamin Tab) 1 tab PO QAM [facility] Stop: 06/03/23 08:59 Last Admin: 05/08/23 08:07 Dose: 1 tab Documented By: Admin: 05/07/23 08:36 Dose: 1 tab Documented By: Admin: 05/06/23 08:43 Dose: 1 tab Documented By: Admin: 05/05/23 09:54 Dose: 1 tab Documented By: Admin: 05/04/23 08:39 Dose: 1 tab Documented By: TRERY Pantoprazole Sodium (Pantoprazole 40 Mg Tab) 40 mg PO DAILY [facility] Stop: 06/03/23 08:59 Last Admin: 05/08/23 08:07 Dose: 40 mg Documented By: Admin: 05/06/23 08:43 Dose: 40 mg Documented By: Admin: 05/05/23 09:54 Dose: 40 mg Documented By: Admin: 05/04/23 08:39 Dose: 40 mg Documented By: TERRY Polyethylene Glycol (Polyethylene (Miralax) 17 Gm Pack) 17 gm PO BID [facility] Stop: 06/06/23 20:59 Last Admin: 05/08/23 08:07 Dose: 17 gm Documented By: Admin: 05/07/23 21:43 Dose: 17 gm Documented By: ELZA Potassium Chloride (Potassium Chloride Crtab 20 Meq Tabcr) 20 meq PO DAILY [facility] Stop: 06/03/23 08:59 Last Admin: 05/08/23 09:06 Dose: 20 meq Documented By: Admin: 05/07/23 08:40 Dose: 20 meq Documented By: Admin: 05/06/23 08:53 Dose: 20 meq Documented By: Admin: 05/05/23 10:23 Dose: 20 meq Documented By: Admin: 05/04/23 08:40 Dose: 20 meq Documented By: TERRY Sennosides (Senna 8.6 Mg Tab) 17.2 mg PO HS [facility] Stop: 06/02/23 20:59 Last Admin: 05/07/23 21:40 Dose: 17.2 mg Documented By: Admin: 05/06/23 20:03 Dose: 17.2 mg Documented By: Admin: 05/05/23 20:39 Dose: 17.2 mg Documented By: Admin: 05/04/23 21:21 Dose: 17.2 mg Documented By: Admin: 05/03/23 22:00 Dose: 17.2 mg Documented By: RENETTA Discontinued Medications Cefepime HCl (Cefepime 2,000 Mg/20 Ml Vial) Confirm Administered Dose 2,000 mg .ROUTE .STK-MED ONE Stop: 05/03/23 15:19 Last Admin: 05/03/23 15:43 Dose: Not Given Documented By: ZOFIA Cefepime HCl (Cefepime 2,000 Mg/20 Ml Vial) Confirm Administered Dose 2,000 mg .ROUTE .STK-MED ONE Stop: 05/03/23 15:21 Last Admin: 05/03/23 15:43 Dose: Not Given Documented By: ZOFIA Fluoxetine HCl (Fluoxetine Hcl 20 Mg Cap) 20 mg PO DAILY [facility] Stop: 06/03/23 08:59 Last Admin: 05/05/23 09:54 Dose: 20 mg Documented By: Admin: 05/04/23 08:40 Dose: 20 mg Documented By: TERRY Sodium Chloride (Nss) 1,000 mls @ 999 mls/hr IV .Q1H1M ONE Stop: 05/03/23 06:08 Last Infusion: 05/03/23 08:01 Dose: Infused Documented By: Admin: 05/03/23 05:58 Dose: 999 mls/hr Documented By: Acetaminophen (Ofirmev) 1,000 mg in 100 mls @ 400 mls/hr IV NOW STA Stop: 05/03/23 05:22 Last Infusion: 05/03/23 06:51 Dose: Infused Documented By: Admin: 05/03/23 05:58 Dose: 400 mls/hr Documented By: Cefepime HCl (Maxipime) 2,000 mg in 20 mls @ 5 mls/min IV NOW STA; Protocol Stop: 05/03/23 05:14 Last Admin: 05/03/23 06:50 Dose: 5 mls/min Documented By: Vancomycin HCl 2,500 mg/ (Sodium Chloride) 550 mls @ 200 mls/hr IV NOW ONE Stop: 05/03/23 08:33 Last Infusion: 05/03/23 15:12 Dose: Infused Documented By: Admin: 05/03/23 07:59 Dose: 200 mls/hr Documented By: ALMA Magnesium Sulfate/Dextrose (Magnesium Sulfate / D5w) 1 gm in 100 mls @ 100 mls/hr IV Q1H MARGARITA Stop: 05/03/23 07:50 Last Infusion: 05/03/23 09:25 Dose: Infused Documented By: Admin: 05/03/23 08:19 Dose: 100 mls/hr Documented By: Infusion: 05/03/23 08:11 Dose: Infused Documented By: Admin: 05/03/23 07:11 Dose: 100 mls/hr Documented By: Sodium Chloride (Nss) 500 mls @ 999 mls/hr IV .Q31M ONE Stop: 05/03/23 07:01 Last Admin: 05/03/23 07:44 Dose: Not Given Documented By: ALMA Sodium Chloride (Nss) 250 mls @ 999 mls/hr IV .Q16M ONE Stop: 05/03/23 06:50 Last Admin: 05/03/23 07:44 Dose: Not Given Documented By: ALMA Sodium Chloride (Nss) 1,000 mls @ 999 mls/hr IV .Q1H1M ONE Stop: 05/03/23 07:35 Last Admin: 05/03/23 07:43 Dose: Not Given Documented By: ALMA Cefepime HCl 2,000 mg/ Syringe 20 mls @ 5 mls/min IV Q8H MARGARITA; Protocol Stop: 05/10/23 14:59 Last Admin: 05/06/23 05:47 Dose: 5 mls/min Documented By: Admin: 05/05/23 22:29 Dose: 5 mls/min Documented By: Admin: 05/05/23 15:46 Dose: 5 mls/min Documented By: Admin: 05/05/23 05:58 Dose: 5 mls/min Documented By: Admin: 05/04/23 22:07 Dose: 5 mls/min Documented By: Admin: 05/04/23 16:37 Dose: 5 mls/min Documented By: Admin: 05/04/23 06:09 Dose: 5 mls/min Documented By: [facility] Admin: 05/03/23 22:39 Dose: 5 mls/min Documented By: [facility] Admin: 05/03/23 15:43 Dose: 5 mls/min Documented By: ZOFIA Iron Sucrose 300 mg/ Sodium (Chloride) 265 mls @ 176.667 mls/hr IV TODAY@0900 ONE Stop: 05/07/23 10:29 Last Infusion: 05/07/23 12:45 Dose: Infused Documented By: Admin: 05/07/23 09:17 Dose: 176.7 mls/hr Documented By: BT Ioversol (Optiray 320 500ml) 87 ml IV ONCE ONE Stop: 05/03/23 06:43 Last Admin: 05/03/23 06:42 Dose: 87 ml Documented By: PLMiguel Pantoprazole Sodium (Pantoprazole 40 Mg Tab) 40 mg PO NOW STA Stop: 05/07/23 14:10 Last Admin: 05/07/23 15:21 Dose: 40 mg Documented By: BT Potassium Chloride (Potassium Chloride Crtab 20 Meq Tabcr) 40 meq PO NOW STA Stop: 05/03/23 05:52 Last Admin: 05/03/23 07:12 Dose: 40 meq Documented By: Description This is a 21 electrode EEG with a single channel dedicated to limited EKG. The electrodes were placed in accordance with the International 10-20 system. Interpretation This is a 21 electrode EEG with a single channel dedicated to limited EKG. The electrodes were placed in accordance with the International 10-20 system. There is a posterior dominant rhythm of 7- 8 Hz which is symmetrically distributed and attenuates with eye opening. There is a normal anterior to posterior organization. There were however diffuse slowing noted episodically during the recording in theta range. Photic stimulation: unremarkable Hyperventilation performed: ___ unremarkable; _x_ not performed. There is no focal slowing. No epileptiform abnormalities. Sleep stage: __ not achieved, __x_drowsy state, ___ Stage II, ___ REM stage achieved. Interpretation Midly abnormal awake and drowsy EEG due to episodic diffuse slowing suggestive of diffuse cortical dysfunction. No epileptic discharge noted. [facility] EEG Procedure Codes Indication for Procedure (1) Acute metabolic encephalopathy: Neurology Neurology: 48488 EEG include record awake & drowsy
--- NOTE | 2023-05-08 14:35 | Hospitalist Progress Note ---
Date of Service May 08, 2023 Assessment & Plan (1) Acute severe vertigo: Plan: 2 minute episode of spinning associated with double vision. no tinnitus or hearing changes. spontaneously resolved after the 2 minutes. has never had such before. neuro exam unchanged from prior exam. central vs peripheral cause. need to r/o central causes thus obtain repeat CT head along with CTA head/neck. if this was a TIA event she is already on Eliquis BID + aspirin 81mg daily. we are actively trying to secure old records from [facility] [place], [facility], and [facility] to compare current imaging with previous imaging. Further, in order to have MRI in the setting of her MANAGER SWITCH shunt, we need to know what type of shunt she has. Certain shunts need to be checked by neurosurgery after MRI to ensure the pressure settings do not change as a result of the MRI magnet. thus, defer on MRI for now. echo late fall 2022 was wnl. consider neuro consult depending on work-up. (2) Sepsis: Plan: 2nd RLE cellulitis - resolved blood cx's negative marked leukocytosis resolved (21 down to 6) IV cefepime initially used; now over to cefuroxime day # 6 of Rx plan 10 days in total of IV/PO abx then stop (3) Cellulitis of right leg: Plan: resolved see #1 (4) Acute metabolic encephalopathy: Plan: presented with such presumed 2nd to #1, #[address] Muro her mental status had improved 05/07 - she was awake but unable to communicate normally; long pauses before responding, etc I spoke with the pt's sister today she confirms that her sister's baseline MS is relatively intact - can have normal conversations, etc. CT head from admission noted as noted in #1 above we are obtaining CT head/CTA head/CTA neck ideally she gets brain MRI as well (see above) obtain EEG - r/o seizures as the cause of her waxing/waning mental status certainly she is a set up for encephalopathy/delirium given prior brain tumor history, resection, etc (5) History of DVT (deep vein thrombosis): Plan: Continue apixaban BID Has IVC filter, unknown when placed (6) Hypothyroidism: Plan: Continue levothyroxine TSH 2.3 (7) MANAGER SWITCH (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) shunt status: Plan: placed in 2006 at [facility] [place]? attempting to get those records MANAGER SWITCH shunt appears stable on CT - no hydrocephalus but ?old epidural hematoma other?? trying to get her most recent CT and/or MRI brain to compare I am uncertain what is old vs new on her CTs - everything could be old/chronic (8) Seizure disorder: Plan: Continue lacosamide No seizures have been observed/reported per nursing EEG pending (9) Congestive heart failure: Plan: Chronic diastolic heart failure Echo 02/27 with normal EF much of her LE edema looks like lymphedema which does not respond well to diuretics will hold lasix moving forward (10) Hypokalemia: Plan: Replaced Resolved (11) Hypomagnesemia: Plan: replaced resolved (12) Normocytic anemia: Plan: ferritin 58 transferrin low-normal suspect she is Fe deficient s/p venofer 300mg IV x 1 consider repeat tomorrow repeat CBC am for stability etiology of low Fe?? GI blood loss? 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 By report was living independently the previous four years. extensive conversation had with pt's sister by phone this evening, 05/08/23 her sister confirms that Cassy has been confused this week - this is atypical for her she brought up a host of concerns/problems including disenchantment with [facility] SNF, concern for dehydration, etc about 20 minutes spent on phone appreciate efforts of social work to secure new living situation/SNF Admission and Anticipated Discharge Date Admission Date: May 03, 2023 Subjective tele overnight wnl patient was MUCH MORE awake/alert/oriented today was having normal conversation with me knew she was in the hospital knew she had been at [facility] prior to coming to the hospital able to give me details about her PMH, where she previously lived, etc was off with the year by 1 year (thought it was 2021) did endorse that she has a visual field cut on the left patient reports that she "didn't feel well this morning" apparently had a 2-minute episode of dizziness when she described it the dizziness was vertigo -- she was spinning this was associated with double vision at one point she closed her eyes, and when she opened them her sister had arrived the vertigo and diplopia resolved the diplopia was side by side images she has never had symptoms like this before denies any other neuro symptoms besides her chronic LUE/LLE weakness per staff eating/drinking fair last BM 05/04 Review of Systems Review of Systems: HENT - no hearing loss or tinnitus cv - no chest pain pulm - no dyspnea GI - no abd pain; no N/V during the vertigo spell Physical Exam Physical Exam: gen - obese, NAD; mentation MUCH better today eyes - PERRL; no nystagmus; left sided homonymous hemianopsia when visual desir were tested by direct confrontation mouth - MMM neck - no JVD heart - RRR, s1 s2, no murmur lungs - CTA b/l, decreased BS bases abd - soft NT ND BS+ ext - 1-2+ edema/lymphedema b/l, pulses 2+ b/l neuro - hemiplegia LUE/LLE; RUE/RLE strength 5/5 skin - stasis changes b/l shins but NO superimposed cellulitis of RLE; scratch cervantes present over both shins psych - awake, alert, oriented x 2-3 Results & Data Results & Data Vital Signs (Past 12 Hours) Vital Signs Temp Pulse Pulse Resp BP Pulse Ox O2 Del Method 05/08/23 12:04 36.9 C 111 H 18 125/82 92 Room Air 05/08/23 09:24 73 05/08/23 09:13 Room Air 05/08/23 07:52 36.9 C 71 18 110/64 93 Room Air 05/08/23 03:53 36.7 C 71 16 131/77 94 Room Air Laboratory Results Laboratory Results 05/07/23 05/08/23 05/08/23 00:00 00:44 05:56 WBC 6.26 6.31 RBC 3.89 L 3.88 L Hgb 8.9 L 8.8 L Hct 29.8 L 30.4 L MCV 76.6 L 78.4 L MCH 22.9 L 22.7 L MCHC 29.9 L 28.9 L RDW Std Deviation 51.1 H 53.1 H RDW Coeff of Neo 18.8 H 18.9 H Plt Count 247 262 MPV 10.5 10.3 Immature Gran % (Auto) 2.9 Neut % (Auto) 58.6 Lymph % (Auto) 27.8 Rush % (Auto) 6.2 Eos % (Auto) 4.2 Baso % (Auto) 0.3 Neut # (Auto) 3.67 Lymph # (Auto) 1.74 Rush # (Auto) 0.39 Eos # (Auto) 0.26 Baso # (Auto) 0.02 Immature Gran # (Auto) 0.18 Absolute Nucleated RBC 0.03 Nucleated RBC % (auto) 0.5 VBG pH VBG pCO2 VBG pO2 VBG HCO3 VBG O2 Saturation VBG Base Excess Sodium 141 142 Potassium 4.1 3.8 Chloride 107 107 Carbon Dioxide 28 27 Anion Gap 6 8 BUN 8 9 Creatinine 0.60 0.51 L Est Cr Clr Drug Dosing 115.0 135.3 Est GFR ( Amer) 119.8 126.3 Est GFR (Non-Af Amer) 103.3 109.0 BUN/Creatinine Ratio 13.3 17.6 Glucose 85 88 Calcium 8.8 9.2 Total Bilirubin 0.3 AST 11 L ALT 15 Alkaline Phosphatase 58 Ammonia Total Protein 6.6 Albumin 3.1 L Globulin 3.5 Albumin/Globulin Ratio 0.9 Urine Color Dark Yellow Urine Appearance Clear Urine pH 5.5 Ur Specific [place] 1.025 Urine Protein Negative Urine Glucose (UA) Negative Urine Ketones Trace H Urine Blood 2+ H Urine Nitrite Negative Urine Bilirubin Negative Urine Urobilinogen Negative Ur Leukocyte Esterase Negative Urine WBC (Auto) 1-5 Urine RBC (Auto) 10-30 H U Hyaline Cast (Auto) 1-5 U Epithel Cells (Auto) 10-20 H Urine Bacteria (Auto) Negative 05/08/23 06:14 WBC RBC Hgb Hct MCV MCH MCHC RDW Std Deviation RDW Coeff of Neo Plt Count MPV Immature Gran % (Auto) Neut % (Auto) Lymph % (Auto) Rush % (Auto) Eos % (Auto) Baso % (Auto) Neut # (Auto) Lymph # (Auto) Rush # (Auto) Eos # (Auto) Baso # (Auto) Immature Gran # (Auto) Absolute Nucleated RBC Nucleated RBC % (auto) VBG pH 7.46 H VBG pCO2 42 VBG pO2 81 VBG HCO3 30 VBG O2 Saturation 97.1 VBG Base Excess 5.4 Sodium Potassium Chloride Carbon Dioxide Anion Gap BUN Creatinine Est Cr Clr Drug Dosing Est GFR ( Amer) Est GFR (Non-Af Amer) BUN/Creatinine Ratio Glucose Calcium Total Bilirubin AST ALT Alkaline Phosphatase Ammonia 25.0 Total Protein Albumin Globulin Albumin/Globulin Ratio Urine Color Urine Appearance Urine pH Ur Specific [place] Urine Protein Urine Glucose (UA) Urine Ketones Urine Blood Urine Nitrite Urine Bilirubin Urine Urobilinogen Ur Leukocyte Esterase Urine WBC (Auto) Urine RBC (Auto) U Hyaline Cast (Auto) U Epithel Cells (Auto) Urine Bacteria (Auto) PG Care Time/CCT Total # of Minutes Spent Total Time Spent with Patient: Total time spent is greater than 50% in coordination of care (as documented) at patient's floor/unit and/or counseling patient: Coding Level of Care Code 55529 SUB INP/OBS CARE 3/50MIN Diagnoses Acute severe vertigo R42 Sepsis A41.9 Sepsis acute organ dysfunction status: unspecified Sepsis type: sepsis due to unspecified organism Cellulitis of right leg L03.115 Acute metabolic encephalopathy G93.41 History of DVT (deep vein thrombosis) Z86.718 Hypothyroidism E03.9 MANAGER SWITCH (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) shunt status Z98.2 Seizure disorder G40.909 Congestive heart failure I50.9 Hypokalemia E87.6 Hypomagnesemia E83.42 Normocytic anemia D64.9 GERD without esophagitis K21.9 Chronic anticoagulation Z79.01 Depression F32.A History of benign brain tumor Z86.011 Morbid obesity with BMI of 45.0-49.9, adult E66.01; Z68.42 (2) Sepsis Sepsis acute organ dysfunction status: unspecified Sepsis type: sepsis due to unspecified organism Qualified Code(s): A41.9 - Sepsis, unspecified organism
[2023-05-08] MEDS: OPTIRAY 320 125ml IV ONE (15:12)
--- NOTE | 2023-05-08 15:44 | CT Scan Report ---
HEAD CT NONCONTRAST CT DOSE: HISTORY: acute vertigo/diplopia, h/o brain tumor TECHNIQUE: Multiaxial CT images of the head were performed without the use of intravenous contrast. A utomated exposure control was utilized for this study. A dose lowering technique was utilized adheri ng to the principles of ALARA. Comparison: Head CT 05/03/2023. Findings: The paranasal sinuses and left mastoid air cells are clear. There are few opacified right m astoid air cells, unchanged. Right-sided craniotomy again noted. The left frontal approach ventriculo stomy catheter terminates within the left foramen of Stephanie. This remains unchanged. Punctate hyperden se focus within the right cerebellar hemisphere on image 9 remains unchanged. This may represent a sm all calcification. No acute hemorrhage or acute infarct. Stable moderate dilatation of the lateral ve ntricles. Minimal left midline shift remains stable. Encephalomalacia of the right temporal lobe and right basal ganglia, unchanged. Persistent right frontal extra-axial low density fluid collection rem ains unchanged. This measures up to 2.2 centers in thickness. Stable 1.7 cm left lateral calcified ex tra-axial lesion. This may represent a meningioma. Impression: No significant change compared to the prior study. No acute intracranial abnormality. Chronic and pos toperative changes again noted. ACT 112: Negative or not required by law. Electronically signed by: Bobby Arthur M.D. 05/08/2023 3:43 PM
--- NOTE | 2023-05-08 15:53 | CT Scan Report ---
CT angio head w con CLINICAL HISTORY: acute vertigo/diplopia TECHNIQUE: CT angiography of the head was performed following intravenous administration of iodinated contrast. Coronal and sagittal MIPS were obtained from the axial data set and were submitted for rev iew. Automated dose lowering techniques and/or adjustment according to patient size were utilized fo r this examination. All measurements were calculated based on NASCET criteria. Comparison: Comparison is made to CT head 05/03/2023 FINDINGS: CTA Head: The anterior and posterior cerebral circulations are patent. Postsurgical changes are seen in the right calvarium there is a left CATTLE SORTER shunt. The left posterior cerebral artery is not well opac ified. A distal bifurcation of the anterior cerebral artery noted. IMPRESSION: Left FINANCE ADMINISTRATOR is not well opacified. This may represent chronic stenosis, however acute infarct cannot be excluded. Otherwise no evidence of vascular abnormality. Assessment of stenosis of the internal carotid arteries is based on NASCET criteria. ACT 112: Negative or not required by law. Electronically signed by: Mejia Moses M.D. 05/08/2023 3:52 PM
--- NOTE | 2023-05-08 16:20 | CT Scan Report ---
CT ANGIOGRAM OF THE NECK CLINICAL HISTORY: Vertigo. Diplopia. COMPARISON STUDY: No priors. TECHNIQUE: Following the IV administration of 116 of Optiray 320, CT angiogram of the neck was perfor med from the aortic arch to the skull base. Images are reviewed in the axial, sagittal, and coronal p lanes. 3-D MIPS images are created and assessed. IV contrast was administered without complication. A ll measurements were calculated based on NASCET criteria. A dose lowering technique was utilized adh ering to the principles of ALARA. CT DOSE: 1098.36 mGy.cm FINDINGS: Thoracic aorta: Visualized portions of the thoracic aorta are normal in caliber. The aortic arch demo nstrates standard 3-vessel anatomy. Right carotid arterial system: The right common carotid artery is widely patent, as are the right int ernal and external carotid arteries. Left carotid arterial system: The left common carotid artery is widely patent, as are the left internal corrosion specialist al and external carotid arteries. Vertebral arteries: The vertebral arteries are widely patent bilaterally and codominant. Subclavian arteries: Widely patent bilaterally. Intracranial vasculature: The partially visualized intracranial vessels at the skull base appear gaxiola nt. Jugular veins: Patent bilaterally. Brain parenchyma: The visualized brain parenchyma the skull base is within normal limits. Lung apices: Partially visualized upper lobe lung parenchyma appears clear. Soft tissues: A shunt catheter traverses the soft tissues of the left neck. The visualized pharyngeal soft tissues are normal in appearance noting angiographic phase technique. The oropharyngeal airway appears widely patent. The right lobe of the thyroid gland is mildly enlarged and heterogeneous. The salivary glands are normal in appearance. No cervical lymphadenopathy is seen. Skeletal structures: The skeletal structures are osteopenic. The visualized calvarium at the skull ba se appears intact. The imaged cervical spine is maintained noting multilevel spondylosis. Sinuses and mastoids: The visualized paranasal sinuses are clear. There is a right mastoid effusion. The left mastoid air cells are well pneumatized. IMPRESSION: Unremarkable CT angiogram of the neck. ACT 112: Negative or not required by law. Electronically signed by: Bob Cardona M.D. 05/08/2023 4:18 PM
[2023-05-09 06:27] LABS: Hematocrit (blood only) 30.9 % (37.0-47.0); Hemoglobin 8.9 g/dl (12.0-16.0)
[2023-05-09 06:41] LABS: BUN Creatinine Ratio 11.3 (10-20); Calcium 9.1 mg/dl (8.6-10.3); Creatinine Clr Calc Pharmacy 97.2 ml/min; Est GFR (African American) 111.9 ml/min; Est GFR (Non-African American) 96.6 ml/min; Potassium 3.8 mmol/L (3.5-5.1)
[2023-05-09] MEDS: IRON SUCROSE 300 MG in SODIUM CHLORIDE 0.9% 250 ML IV ONE (09:14)
[2023-05-09] MEDS: SODIUM CHLORIDE 0.9% 1,000 ML IV SCH (13:22)
--- NOTE | 2023-05-09 20:48 | Hospitalist Progress Note ---
Date of Service May 09, 2023 Assessment & Plan (1) Acute severe vertigo: Plan: 2 minute episode of spinning associated with double vision on 05/08/23. no tinnitus or hearing changes. spontaneously resolved after the 2 minutes. has never had such before. neuro exam unchanged from prior exams. central vs peripheral cause. if this was a TIA event she is already on Eliquis BID + aspirin 81mg daily. repeat head CT on 05/[address] CTA head/neck - ??left P[employer] stenosis otherwise both studies unremarkable. echo late fall 2022 was wnl. we finally received her records from [facility] in [place] where she had her shunt placed in 2006. we have the operative note from that COMMERCIAL ADMINISTRATOR shunt placement. will pass this op note to MRI and see if she is MRI eligible. if yes will obtain MRI brain to r/o a small stroke. if able to do MRI and if the MRI is negative this was likely a brief episode of peripheral vertigo (inner ear). (2) Sepsis: Plan: 2nd RLE cellulitis - resolved blood cx's negative marked leukocytosis resolved (21 down to normal) IV cefepime initially used; now over to cefuroxime day # 7 of Rx plan 10 days in total of IV/PO abx then stop (3) Cellulitis of right leg: Plan: resolved see #1 (4) Acute metabolic encephalopathy: Plan: presented with such presumed 2nd to sepsis/RLE cellulitis per Dr Muro her mental status had improved earlier this week 05/07 - she was awake but unable to communicate normally; long pauses before responding, etc 05/08 - mentation MUCH improved today - mentation seems to be at her baseline head CT x 2 this admission neg for acute findings of note - we finally received CT head reports from [facility] as well as CT/MRI brain images via PACs spoke with radiology - they compared her outside/old CT head with the CTs this admission - largely unchanged 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 -- acute met encephalopathy from infection; hospital delirium; seizures; TIA event; other will attempt to get MRI brain -- see #1 above (5) History of DVT (deep vein thrombosis): Plan: Continue apixaban BID Has IVC filter, unknown when placed (6) Hypothyroidism: Plan: Continue levothyroxine TSH 2.3 (7) COMMERCIAL ADMINISTRATOR (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) shunt status: Plan: placed in 2006 at [facility] records from that visit reviewed op note reviewed COMMERCIAL ADMINISTRATOR shunt appears stable on CT will give op note from 2007 to our MRI dept and determine if we can get MRI brain safely at [facility] Magnet from the MRI can cause problems with the COMMERCIAL ADMINISTRATOR shunt, and in some cases change the shunt settings that affect the pressure within the shunt system (8) Seizure disorder: Plan: Continue lacosamide No seizures have been observed/reported per nursing EEG negative for seizure focus but this does not rule out seizures 100% (9) Congestive heart failure: Plan: Chronic diastolic heart failure Echo 02/27 with normal EF much of her LE edema looks like lymphedema which does not respond well to diuretics will hold lasix moving forward as patient is not drinking much and UOP is poor (10) Hypokalemia: Plan: Replaced Resolved (11) Hypomagnesemia: Plan: replaced resolved (12) Normocytic anemia: Plan: ferritin 58 transferrin low-normal suspect she is Fe deficient s/p venofer 300mg IV x 1 repeat another 300mg dose today H/H low but stable etiology of low Fe?? GI blood loss in face of chronic Eliquis use? (13) GERD without esophagitis: Plan: cont PPI (14) Chronic anticoagulation: Plan: apixaban BID (15) Depression: Plan: initiated prozac 1 month ago by report Dr Muro increased her dose to 30mg/day a few days ago (16) History of benign brain tumor: Plan: left sided hemiplegia is presumably due to atrophy/encephalomalacia from her prior brain tumor resection (17) Morbid obesity with BMI of 45.0-49.9, adult: Plan: BMI 46 Plan resident of [facility] but family refuses her return to that facility. By r eport was living independently the previous four years. extensive conversation had with pt's sister by phone on 05/08/23 update given to pt's brother in law today at bedside may be able to d/c tele tomorrow and move to med/surg Admission and Anticipated Discharge Date Admission Date: May 03, 2023 Subjective no events overnight pt resting comfortably in bed during the visit her brother in law was present she has not eaten much of the hospital meals today - she states it is not from an appetite issue but she simply doesn't like the food her brother in law mentions that she is an "extremely picky eater" and will only eat chicken fingers, pizza, processed foods, etc no veggies does not like boost or ensure apparently her sister is bringing pizza this evening and she is excited for this pt denies any recurrent episodes of dizziness/vertigo/diplopia I discussed with patient and her brother in law that we finally received her records from [facility] and [facility] in [place] we were also able to obtain her most recent head CT and MRI brain done in [place] (images uploaded in PACS) pt denies any new symptoms UOP today poor due to lack of good intake including liquids Review of Systems Review of Systems: gen - "I feel good" neuro - denies headache HENT - denies URI symptoms cv - no orthopnea, no chest pain pulm - no dyspnea or cough GI - no abd pain or N/V; per staff did move bowels today but stool was small - incontinent of urine; no dysuria musculo - denies pain in any location Physical Exam Physical Exam: gen - obese, NAD; mentation good today; smiling, laughing even, answering questions normally mouth - MM slightly dry neck - no JVD heart - RRR, s1 s2, no murmur lungs - CTA b/l, decreased BS bases, poor airation abd - soft NT ND BS+ ext - 1-2+ edema/lymphedema b/l, pulses 2+ b/l neuro - hemiplegia LUE/LLE skin - stasis changes b/l shins but NO superimposed cellulitis of RLE; scratch cervantes present over both shins - healing psych - awake, alert, oriented Results & Data Results & Data Vital Signs (Past 12 Hours) Vital Signs Temp Pulse Pulse Resp BP Pulse Ox O2 Del Method 05/09/23 19:00 36.7 C 66 20 112/71 93 Room Air 05/09/23 15:37 36.9 C 75 18 113/73 90 Room Air 05/09/23 15:34 68 05/09/23 11:54 36.8 C 74 18 122/80 94 Room Air 05/09/23 08:51 66 Laboratory Results Laboratory Results - last 24 hr 05/09/23 05:49 Hgb 8.9 L Hct 30.9 L Sodium 140 Potassium 3.8 Chloride 106 Carbon Dioxide 28 Anion Gap 6 BUN 8 Creatinine 0.71 Est Cr Clr Drug Dosing 97.2 Est GFR ( Amer) 111.9 Est GFR (Non-Af Amer) 96.6 BUN/Creatinine Ratio 11.3 Glucose 94 Calcium 9.1 PG Care Time/CCT Total # of Minutes Spent Total Time Spent with Patient: Total time spent is greater than 50% in coordination of care (as documented) at patient's floor/unit and/or counseling patient: Coding Level of Care Code 56004 SUB INP/OBS CARE 3/50MIN Diagnoses Acute severe vertigo R42 Sepsis A41.9 Sepsis acute organ dysfunction status: unspecified Sepsis type: sepsis due to unspecified organism Cellulitis of right leg L03.115 Acute metabolic encephalopathy G93.41 History of DVT (deep vein thrombosis) Z86.718 Hypothyroidism E03.9 COMMERCIAL ADMINISTRATOR (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) shunt status Z98.2 Seizure disorder G40.909 Congestive heart failure I50.9 Hypokalemia E87.6 Hypomagnesemia E83.42 Normocytic anemia D64.9 GERD without esophagitis K21.9 Chronic anticoagulation Z79.01 Depression F32.A History of benign brain tumor Z86.011 Morbid obesity with BMI of 45.0-49.9, adult E66.01; Z68.42 (2) Sepsis Sepsis acute organ dysfunction status: unspecified Sepsis type: sepsis due to unspecified organism Qualified Code(s): A41.9 - Sepsis, unspecified organism
[2023-05-10] MEDS: GADOBUTROL 65ML VIAL IV ONE (11:07)
--- NOTE | 2023-05-10 13:39 | Magnetic Resonance Report ---
MR brain wo/w con HISTORY: 52 years-old Female recent vertigo/diplopia episode Acute double vision. COMPARISON: Head CT 05/08/2023, 01/04/2023, brain MRI 06/12/2022. TECHNIQUE: Multiplanar multisequence MRI of the brain was obtained with and without. FINDINGS: Study is mildly motion degraded. Right-sided craniotomy again noted. The left frontal approach ventri culostomy catheter terminating within the left foramen of Stephanie is better visualized on the compariso n head CT. Subcentimeter focus of blooming artifact within the right cerebellar hemisphere correlatin g with the hyperdense focus seen on comparison CT appears stable, likely benign. Additional stable fo ci of susceptibility artifact noted within the brain are unchanged compared to the 06/12/2022 study. No acute intracranial hemorrhage, acute or subacute infarct. Stable moderate dilatation of the latera l ventricles. Involutional changes with moderate T2/FLAIR hyperintense foci throughout the white vita er appear unchanged. Areas of encephalomalacia and gliosis again noted. Minimal left midline shift re venice stable measuring 3 mm. Encephalomalacia of the right temporal lobe and right basal ganglia, unc hanged. Persistent right frontal extra-axial extra-axial collection following CSF signal on all seque nces measuring up to 2.2 cm in thickness. Enhancing stable 1.7 cm left lateral calcified extra-axial lesion on image 16 series 8 which likely represents a meningioma. There is a 2.1 x 0.8 x 1.8 cm lobul ar enhancing focus noted along the anteroinferior left frontal lobe periventricular distribution on i mage 12 series 10 and image 9 series 11. This finding appears to be stable from the contrast-enhanced head CT from 01/04/2023 and is also likely stable from the noncontrast brain MRI from 06/12/2022. This area also demonstrates mildly increased T2/FLAIR signal. Probable meningioma of the falx cerebri ante riorly on image 15 measuring 8 mm. There is diffuse thickening with increased enhancement of the pach ymeninges. IMPRESSION: 1. No acute intracranial hemorrhage, acute or subacute infarct. 2. Indeterminate enhancing 2.1 cm structure within the left frontal lobe anteroinferior periventricul ar distribution which appears stable from prior. Attention on follow-up recommended. 3. Prior right-sided craniotomy with stable 2.2 cm extra-axial collection suggestive of a hygroma. 4. Thickening with homogeneous enhancement of the pachymeninges is a nonspecific finding. Correlate c linically to exclude intracranial hypotension. ACT 112: Negative or not required by law. The above report was generated using voice recognition software. It may contain grammatical, syntax o r spelling errors. Dictated: 05/10/2023 11:40 AM Transcribed: 05/10/2023 12:54 PM Venkat [id number] ZEESHAN_Jaime [id number] Electronically signed by: Calvin Condon M.D. 05/10/2023 1:38 PM
[2023-05-10] MEDS: IRON SUCROSE 300 MG in SODIUM CHLORIDE 0.9% 250 ML IV ONE (16:08)
--- NOTE | 2023-05-10 18:43 | Hospitalist Progress Note ---
Date of Service May 10, 2023 Assessment & Plan (1) Acute severe vertigo: Plan: 2 minute episode of spinning associated with double vision on 05/08/23. no tinnitus or hearing changes. spontaneously resolved after the 2 minutes. has never had such before. neuro exam unchanged from prior exams. central vs peripheral cause. TIA? inner ear issue? other? if this was a TIA event she is already on Eliquis BID + aspirin 81mg daily. repeat head CT on 05/[address] 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 echo late fall 2022 was wnl. we finally received her records from [facility] in [place] where she had her shunt placed in 2006. we have the operative note from that ELEVATOR BUILDER shunt placement. the ELEVATOR BUILDER shunt is a non-programmable Delta device which is MRI compatible. thus, MRI w/ contrast was obtained - see results section for report. NO acute or chronic CVA seen but obviously numerous findings related to her prior brain tumor resection. was this TIA event? if yes - cont asa, Eliquis (2) Sepsis: Plan: 2nd RLE cellulitis - resolved blood cx's negative marked leukocytosis resolved (21 down to normal) IV cefepime initially used; now over to PO cefuroxime day # 8 of Rx plan 10 days in total of IV/PO abx then stop (3) Cellulitis of right leg: Plan: resolved (4) Acute metabolic encephalopathy: Plan: presented with such presumed 2nd to sepsis/RLE cellulitis per Dr Muro her mental status had improved earlier last week 05/07 - she was awake but unable to communicate normally; long pauses before responding, etc 05/08 - mentation MUCH improved today - mentation appears at baseline head CT x 2 this admission neg for acute findings of note - we finally received CT head reports from [facility] as well as CT/MRI brain images via PACs spoke with radiology - they compared her outside/old CT head with the CTs this admission - largely unchanged 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 -- acute met encephalopathy from infection; hospital delirium; subclinical seizures; TIA event; other MRI brain WITHOUT acute or chronic stroke (5) History of DVT (deep vein thrombosis): Plan: Continue apixaban BID Has IVC filter, unknown when placed (6) Hypothyroidism: Plan: Continue levothyroxine TSH 2.3 (7) ELEVATOR BUILDER (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) shunt status: Plan: placed in 2005 at [facility] records from that visit reviewed op note reviewed ELEVATOR BUILDER shunt is a Delta non-programmable unit - MR compatible ELEVATOR BUILDER shunt appears stable on CT and MRI (8) Seizure disorder: Plan: Continue lacosamide No seizures have been observed/reported per nursing EEG negative for seizure focus but this does not rule out seizures 100% Can't rule out subclinical seizures contributing to periods of confusion/altered MS (9) Congestive heart failure: Plan: Chronic diastolic heart failure Echo 02/27 with normal EF much of her LE edema looks like lymphedema which does not respond well to diuretics will hold lasix once again today consider resuming next 48 hours (10) Hypokalemia: Plan: Replaced Resolved (11) Hypomagnesemia: Plan: replaced resolved (12) Normocytic anemia: Plan: ferritin 58 transferrin low-normal suspect she is Fe deficient s/p venofer 300mg IV x 2 doses will give 3rd dose today H/H low but stable etiology of low Fe?? GI blood loss in face of chronic Eliquis use? (13) GERD without esophagitis: Plan: cont PPI (14) Chronic anticoagulation: Plan: apixaban BID (15) Depression: Plan: initiated prozac 1 month ago by report Dr Muro increased her dose to 30mg/day a few days ago (16) History of benign brain tumor: Plan: left sided hemiplegia is presumably due to atrophy/encephalomalacia from her prior brain tumor resection she also appears to have 2 meningiomas on her MRI brain -- 1. stable 1.7 cm left lateral calcified extra-axial lesion on image 16 series 8 which likely represents a meningioma. 2. probable meningioma of the falx cerebri anteriorly on image 15 measuring 8 mm. (17) Morbid obesity with BMI of 45.0-49.9, adult: Plan: BMI 46 (18) Abnormal brain MRI: Plan: MRI shows thickening of the pachymeninges she does not have any h/o CSF leak or postural headaches uncertain about the etiology of the above strongly consider formal neuro eval (19) Abnormal urine findings: Plan: urine cx with 20,000 CFU of GPC this colony count is very low and likely not significant however, will await final culture result and determine if Rx is needed Plan resident of [facility] but family refuses her return to that facility. By report was living independently the previous four years. extensive conversation had with pt's sister by phone on 05/08/23 update given to pt's brother in law at bedside 05/09/23 may be able to d/c tele tomorrow and move to med/surg tomorrow if stable overnight tonight Admission and Anticipated Discharge Date Admission Date: May 03, 2023 Subjective no events overnight pt resting comfortably in bed denies any complaints stating "I feel pretty good" per staff she ate an entire personal size pizza brought by family last night ate better with breakfast/lunch today as well pt denied any headache, chest pain, dyspnea, abd pain, nausea, emesis we discussed her MRI results Review of Systems Review of Systems: gen - no fevers or chills cv - no orthopnea GI - no diarrhea pulm - minimal cough Physical Exam Physical Exam: gen - obese, NAD; mentation wnl today; awake/alert mouth - MMM neck - no JVD heart - RRR, s1 s2, no murmur lungs - CTA b/l, decreased BS bases, respiratory effort is poor abd - soft NT ND BS+ ext - 2+ edema/lymphedema b/l, pulses 2+ b/l - lymphedema unchanged neuro - hemiplegia LUE/LLE skin - stasis changes b/l shins; no cellulitis of RLE; scratch cervantes present over both shins - healed psych - awake, alert, oriented x 3 Results & Data Results & Data Vital Signs (Past 12 Hours) Vital Signs Temp Pulse Pulse Resp BP Pulse Ox O2 Del Method 05/10/23 16:17 36.9 C 69 18 104/67 97 Room Air 05/10/23 16:00 65 05/10/23 11:59 36.6 C 82 18 133/73 93 Room Air 05/10/23 08:50 Room Air 05/10/23 07:54 36.5 C 68 18 113/76 94 Room Air 05/10/23 07:18 70 Diagnostic Findings Brain MRI 05/10/23 09:38 MR brain wo/w con HISTORY: 52 years-old Female recent vertigo/diplopia episode Acute double vision. COMPARISON: Head CT 05/08/2023, 01/04/2023, brain MRI 06/12/2022. TECHNIQUE: Multiplanar multisequence MRI of the brain was obtained with and without. FINDINGS: Study is mildly motion degraded. Right-sided craniotomy again noted. The left frontal approach ventriculostomy catheter terminating within the left foramen of Stephanie is better visualized on the comparison head CT. Subcentimeter focus of blooming artifact within the right cerebellar hemisphere correlating with the hyperdense focus seen on comparison CT appears stable, likely benign. Additional stable foci of susceptibility artifact noted within the brain are unchanged compared to the 06/12/2022 study. No acute intracranial hemorrhage, acute or subacute infarct. Stable moderate dilatation of the lateral ventricles. Involutional changes with moderate T2/FLAIR hyperintense foci throughout the white matter appear unchanged. Areas of encephalomalacia and gliosis again noted. Minimal left midline shift remains stable measuring 3 mm. Encephalomalacia of the right temporal lobe and right basal ganglia, unchanged. Persistent right frontal extra-axial extra-axial collection following CSF signal on all sequences measuring up to 2.2 cm in thickness. Enhancing stable 1.7 cm left lateral calcified extra-axial lesion on image 16 series 8 which likely represents a meningioma. There is a 2.1 x 0.8 x 1.8 cm lobular enhancing focus noted along the anteroinferior left frontal lobe periventricular distribution on image 12 series 10 and image 9 series 11. This finding appears to be stable from the contrast-enhanced head CT from 01/04/2023 and is also likely stable from the noncontrast brain MRI from 06/12/2022. This area also demonstrates mildly increased T2/FLAIR signal. Probable meningioma of the falx cerebri anteriorly on image 15 measuring 8 mm. There is diffuse thickening with increased enhancement of the pachymeninges. IMPRESSION: 1. No acute intracranial hemorrhage, acute or subacute infarct. 2. Indeterminate enhancing 2.1 cm structure within the left frontal lobe anteroinferior periventricular distribution which appears stable from prior. Attention on follow-up recommended. 3. Prior right-sided craniotomy with stable 2.2 cm extra-axial collection suggestive of a hygroma. 4. Thickening with homogeneous enhancement of the pachymeninges is a nonspecific finding. Correlate clinically to exclude intracranial hypotension. ACT 112: Negative or not required by law. The above report was generated using voice recognition software. It may contain grammatical, syntax or spelling errors. Dictated: 05/10/2023 11:40 AM Transcribed: 05/10/2023 12:54 PM Venkat [id number] ZEESHAN_Jaime [id number] Electronically signed by: Calvin Condon M.D. 05/10/2023 1:38 PM PG Care Time/CCT Total # of Minutes Spent Total Time Spent with Patient: Total time spent is greater than 50% in coordination of care (as documented) at patient's floor/unit and/or counseling patient: Coding Level of Care Code 65071 SUB INP/OBS CARE 3/50MIN Diagnoses Acute severe vertigo R42 Sepsis A41.9 Sepsis acute organ dysfunction status: unspecified Sepsis type: sepsis due to unspecified organism Cellulitis of right leg L03.115 Acute metabolic encephalopathy G93.41 History of DVT (deep vein thrombosis) Z86.718 Hypothyroidism E03.9 ELEVATOR BUILDER (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) shunt status Z98.2 Seizure disorder G40.909 Congestive heart failure I50.9 Hypokalemia E87.6 Hypomagnesemia E83.42 Normocytic anemia D64.9 GERD without esophagitis K21.9 Chronic anticoagulation Z79.01 Depression F32.A History of benign brain tumor Z86.011 Morbid obesity with BMI of 45.0-49.9, adult E66.01; Z68.42 Abnormal brain MRI R90.89 Abnormal urine findings R82.90 (2) Sepsis Sepsis acute organ dysfunction status: unspecified Sepsis type: sepsis due to unspecified organism Qualified Code(s): A41.9 - Sepsis, unspecified organism
[2023-05-11 08:07] LABS: Hematocrit (blood only) 30.7 % (37.0-47.0); Hemoglobin 8.7 g/dl (12.0-16.0); Mean Corpuscular Hemoglobin 22.8 pg (25.0-34.0); Mean Corpuscular Hgb Conc 28.3 g/dL (32.0-36.0); Mean Corpuscular Volume 80.4 fL (80.0-100.0); Mean Platelet Volume 10.6 fL (9.4-12.4); Platelet Count 274 K/uL (130-400); RDW Coefficient of Variation 20.2 % (11.5-14.5); RDW Standard Deviation 54.8 fL (36.4-46.3); Red Blood Count 3.82 M/uL (4.20-5.40); White Blood Count 6.87 K/ul (4.8-10.8)
[2023-05-11 08:14] LABS: BUN Creatinine Ratio 13.7 (10-20); Calcium 8.5 mg/dl (8.6-10.3); Creatinine Clr Calc Pharmacy 137.4 ml/min; Est GFR (African American) 126.3 ml/min; Potassium 3.8 mmol/L (3.5-5.1)
[2023-05-11 08:42] LABS: Basophils # (auto) 0.02 K/uL (0.00-0.20); Basophils % (auto) 0.3 %; Eosinophils # (auto) 0.38 K/uL (0.00-0.50); Eosinophils % (auto) 5.5 %; Immature Granulocytes # (auto) 0.26 K/uL (0.01-0.20); Immature Granulocytes % (auto) 3.8 %; Lymphocytes # (auto) 1.72 K/uL (1.20-3.40); Monocytes # (auto) 0.26 K/uL (0.11-0.59); Monocytes % (auto) 3.8 %; Neutrophils # (auto) 4.23 K/uL (1.40-6.50); Neutrophils % (auto) 61.6 %; Polychromasia 2+
[2023-05-11] MEDS: TRIAMCINOLONE ACET 0.1% CR 15 GM TUBE EXT SCH (09:37)
--- NOTE | 2023-05-11 12:42 | Hospitalist Progress Note ---
Date of Service May 11, 2023 Assessment & Plan (1) Acute severe vertigo: Plan: 2 minute episode of spinning associated with double vision on 05/08/23. no tinnitus or hearing changes. spontaneously resolved after the 2 minutes. has never had such before. neuro exam unchanged from prior exams. central vs peripheral cause. TIA? inner ear issue? other? if this was a TIA event she is already on Eliquis BID + aspirin 81mg daily. repeat head CT on 05/[address] 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 echo late fall 2022 was wnl. we finally received her records from [facility] in [place] where she had her shunt placed in 2006. we have the operative note from that IRON PILER shunt placement. the IRON PILER shunt is a non-programmable Delta device which is MRI compatible. thus, MRI w/ contrast was obtained. NO acute or chronic CVA seen but obviously numerous findings related to her prior brain tumor resection. was this a TIA event? if yes - cont asa, Eliquis (2) Sepsis: Plan: 2nd RLE cellulitis - resolved blood cx's negative marked leukocytosis resolved (21 down to normal) IV cefepime initially used; now over to PO cefuroxime completed 7+ days of IV/PO abx (3) Cellulitis of right leg: Plan: resolved (4) Acute metabolic encephalopathy: Plan: presented with such on day of admission presumed 2nd to sepsis/RLE cellulitis waxing/waning last week 05/07 - she was awake but unable to communicate normally; long pauses before responding, etc 05/08 - mentation MUCH improved today - mentation at baseline head CT x 2 this admission neg for acute findings of note - we finally received CT head reports from [facility] as well as CT/MRI brain images via PACs spoke with radiology - they compared her outside/old CT head with the CTs this admission - largely unchanged MRI brain WITHOUT acute or chronic stroke most findings are chronic 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 -- acute met encephalopathy from infection (suspected as main culprit); hospital delirium; subclinical seizures; TIA event; vs other (5) History of DVT (deep vein thrombosis): Plan: Continue apixaban BID Has IVC filter, unknown when placed (6) Hypothyroidism: Plan: Continue levothyroxine TSH 2.3 (7) IRON PILER (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) shunt status: Plan: placed in 2005 at [facility] records from that visit reviewed op note reviewed IRON PILER shunt is a Delta non-programmable unit - MR compatible IRON PILER shunt appears stable on CT and MRI (8) Seizure disorder: Plan: Continue lacosamide No seizures have been observed/reported per nursing EEG negative for seizure focus but this does not rule out seizures 100% Can't rule out subclinical seizures contributing to periods of confusion/altered MS (9) Congestive heart failure: Plan: Chronic diastolic heart failure Echo 02/27 with normal EF much of her LE edema looks like lymphedema which does not respond well to diuretics wound benefit from compression will hold lasix once again today consider resuming tomorrow (10) Hypokalemia: Plan: Replaced Resolved (11) Hypomagnesemia: Plan: replaced resolved (12) Normocytic anemia: Plan: ferritin 58 transferrin low-normal suspect she is Fe deficient s/p venofer 300mg IV x 3 doses this admission H/H low but stable -- plan to repeat CBC in 48 hours for stability etiology of low Fe?? GI blood loss in face of chronic Eliquis use? will obtain a fecal occult (was negative in March, but will repeat) B12 level - mid 300s; will supplement is already on folate supplementation (13) GERD without esophagitis: Plan: cont PPI (14) Chronic anticoagulation: Plan: apixaban BID (15) Depression: Plan: initiated prozac 1 month ago by report Dr Muro increased her dose to 30mg/day a few days ago (16) History of benign brain tumor: Plan: left sided hemiplegia is presumably due to atrophy/encephalomalacia from her prior brain tumor resection she also appears to have 2 meningiomas on her MRI brain -- 1. stable 1.7 cm left lateral calcified extra-axial lesion on image 16 series 8 which likely represents a meningioma. 2. probable meningioma of the falx cerebri anteriorly on image 15 measuring 8 mm. 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 By report was living independently the previous four years. extensive conversation had with pt's sister by phone on 05/08/23 update given to pt's brother in law at bedside 05/09/23 d/c tele can move to med/surg Admission and Anticipated Discharge Date Admission Date: May 03, 2023 Subjective tele stable overnight - NSR patient was sleeping upon my arrival easily awoke reports feeling well she is eating more denies any complaints no events per staff Review of Systems Review of Systems: neuro - no headache cv - no chest pain, no orthopnea pulm - minimal cough; no dyspnea at rest GI - no abd pain; no N/V - incontinent of urine Physical Exam Physical Exam: gen - obese, NAD; looks good today mouth - MMM neck - no JVD heart - RRR, s1 s2, no murmur lungs - CTA b/l, decreased BS bases abd - soft NT ND BS+ ext - 1-2+ edema/lymphedema b/l, pulses 2+ b/l - lymphedema unchanged neuro - hemiplegia LUE/LLE; speech clear/fluent skin - stasis changes b/l shins; no cellulitis of either ball; scratch cervantes present over both shins especially the right ball- healed psych - awake, alert, oriented x 3 Results & Data Results & Data Vital Signs (Past 12 Hours) Vital Signs Temp Pulse Pulse Resp BP Pulse Ox O2 Del Method 05/11/23 11:49 36.8 C 71 18 130/66 94 Room Air 05/11/23 08:41 Room Air 05/11/23 08:12 36.7 C 62 18 120/80 96 Room Air 05/11/23 07:31 59 L 05/11/23 03:00 36.7 C 69 21 129/89 95 Room Air Laboratory Results Laboratory Results - last 24 hr 05/11/23 05/11/23 06:52 07:46 WBC Cancelled 6.87 RBC Cancelled 3.82 L Hgb Cancelled 8.7 L Hct Cancelled 30.7 L MCV Cancelled 80.4 MCH Cancelled 22.8 L MCHC Cancelled 28.3 L RDW Std Deviation Cancelled 54.8 H RDW Coeff of Neo Cancelled 20.2 H Plt Count Cancelled 274 MPV Cancelled 10.6 Immature Gran % (Auto) Cancelled 3.8 Neut % (Auto) Cancelled 61.6 Lymph % (Auto) Cancelled 25.0 Labette % (Auto) Cancelled 3.8 Eos % (Auto) Cancelled 5.5 Baso % (Auto) Cancelled 0.3 Neut # (Auto) Cancelled 4.23 Lymph # (Auto) Cancelled 1.72 Labette # (Auto) Cancelled 0.26 Eos # (Auto) Cancelled 0.38 Baso # (Auto) Cancelled 0.02 Immature Gran # (Auto) Cancelled 0.26 H Absolute Nucleated RBC Cancelled Nucleated RBC % (auto) Cancelled Neutrophils % (Manual) Cancelled Band Neutrophils % Cancelled Lymphocytes % (Manual) Cancelled Prolymphocyte % Cancelled Reactive Lymphs % (Man) Cancelled Monocytes % (Manual) Cancelled Eosinophils % (Manual) Cancelled Basophils % (Manual) Cancelled Metamyelocytes % (Man) Cancelled Myelocytes % (Man) Cancelled Promyelocytes % (Man) Cancelled Blast Cells % (Manual) Cancelled Plasma Cell % (Manual) Cancelled Other Cells % Cancelled Nucleated RBC % Cancelled Neutrophils # (Manual) Cancelled Band Neutrophils # Cancelled Total Absolute Neuts Cancelled Lymphocytes # (Manual) Cancelled Prolymphocyte # Cancelled Reactive Lymphs # Cancelled Total Abs Lymphocytes Cancelled Monocytes # (Manual) Cancelled Eosinophils # (Manual) Cancelled Basophils # (Manual) Cancelled Metamyelocytes # (Man) Cancelled Myelocytes # (Manual) Cancelled Promyelocytes # (Man) Cancelled Blast Cells # (Man) Cancelled Plasma Cell # (Manual) Cancelled Other Cells # Cancelled Nucleated RBCs # (Man) Cancelled Hypersegmented Neuts Cancelled Hyposegmented Neuts Cancelled Hypogranular Neuts Cancelled Large Granular Lymphs Cancelled # Lrg Granular Lymphs Cancelled Hairy Cells Cancelled Smudge Cells Cancelled Toxic Granulation Cancelled Toxic Vacuolation Cancelled Dohle Bodies Cancelled Emilia Rods Cancelled Platelet Estimate Cancelled Hypogranular Platelets Cancelled Giant Platelets Cancelled Platelet Satelliting Cancelled RBC Morphology Cancelled Polychromasia Cancelled 2+ Hypochromasia Cancelled Poikilocytosis Cancelled Basophilic Stippling Cancelled Anisocytosis Cancelled Microcytosis Cancelled Macrocytosis Cancelled Spherocytes Cancelled Pappenheimer Bodies Cancelled Sickle Cells Cancelled Target Cells Cancelled Tear Drop Cells Cancelled Ovalocytes Cancelled Stomatocytes Cancelled [place] Bodies Cancelled Echinocytes Cancelled Acanthocytes (Spur) Cancelled Rouleaux Cancelled RBC Agglutinates Cancelled Schistocytes Cancelled Sezary Cell Cancelled Sodium Cancelled 141 Potassium Cancelled 3.8 Chloride Cancelled 109 H Carbon Dioxide Cancelled 26 Anion Gap Cancelled 6 BUN Cancelled 7 Creatinine Cancelled 0.51 L Est Cr Clr Drug Dosing Cancelled 137.4 Est GFR ( Amer) Cancelled 126.3 Est GFR (Non-Af Amer) Cancelled 109.0 BUN/Creatinine Ratio Cancelled 13.7 Glucose Cancelled 83 Calcium Cancelled 8.5 L Blood Parasites ID Cancelled PG Care Time/CCT Total # of Minutes Spent Total Time Spent with Patient: Total time spent is greater than 50% in coordination of care (as documented) at patient's floor/unit and/or counseling patient: Coding Level of Care Code 53364 SUB INP/OBS CARE 2/35MIN Diagnoses Acute severe vertigo R42 Sepsis A41.9 Sepsis acute organ dysfunction status: unspecified Sepsis type: sepsis due to unspecified organism Cellulitis of right leg L03.115 Acute metabolic encephalopathy G93.41 History of DVT (deep vein thrombosis) Z86.718 Hypothyroidism E03.9 IRON PILER (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) shunt status Z98.2 Seizure disorder G40.909 Congestive heart failure I50.9 Hypokalemia E87.6 Hypomagnesemia E83.42 Normocytic anemia D64.9 GERD without esophagitis K21.9 Chronic anticoagulation Z79.01 Depression F32.A History of benign brain tumor Z86.011 Morbid obesity with BMI of 45.0-49.9, adult E66.01; Z68.42 Abnormal brain MRI R90.89 UTI (urinary tract infection) due to Enterococcus N39.0; B95.2 (2) Sepsis Sepsis acute organ dysfunction status: unspecified Sepsis type: sepsis due to unspecified organism Qualified Code(s): A41.9 - Sepsis, unspecified organism
[2023-05-11] MEDS: DAPTOmycin 600 MG in SYRINGE 0 ML IV SCH (17:24)
[2023-05-12] MEDS: CYANOCOBALAMIN (B-12) 500 MCG TABLET PO SCH (08:42)
--- NOTE | 2023-05-12 20:59 | Hospitalist Progress Note ---
Date of Service May 12, 2023 Assessment & Plan (1) Acute severe vertigo: Plan: 2 minute episode of spinning associated with double vision on 05/08/23. no tinnitus or hearing changes. spontaneously resolved after the 2 minutes. has never had such symptoms before. neuro exam unchanged from prior exams. does not have migraines to account for symptoms like this. central vs peripheral cause. TIA? inner ear issue? other? if this was a TIA event she is already on Eliquis BID + aspirin 81mg daily. repeat head CT on 05/[address] 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 echo late fall 2022 was wnl. we finally received her records from [facility] in [place] where she had her shunt placed in 2006. we have the operative note from that MILK TESTER shunt placement. the MILK TESTER shunt is a non-programmable Delta device which is MRI compatible. thus, MRI w/ contrast was obtained. NO acute or chronic CVA seen but obviously numerous findings related to her prior brain tumor resection. was this a TIA event? if yes - cont asa, Eliquis (2) Sepsis: Plan: 2nd RLE cellulitis - resolved blood cx's negative completed 7+ days of IV/PO abx (3) Cellulitis of right leg: Plan: resolved (4) Acute metabolic encephalopathy: Plan: presented with such on day of admission presumed 2nd to sepsis/RLE cellulitis waxing/waning MS last week 05/07 - she was awake but unable to communicate normally; long pauses before responding, etc 05/08 - mentation MUCH improved from that point forward mentation has continued to improve each day head CT x 2 this admission neg for acute findings of note - we finally received CT head reports from [facility] as well as CT/MRI brain images via PACs spoke with radiology - they compared her outside/old CT head with the CTs this admission - largely unchanged MRI brain WITHOUT acute or chronic stroke most findings are chronic -- MRI here was compared to MRI brain done at [facility] 06/2022 (MRI images from 06/2022 are in PACS) 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 -- acute met encephalopathy from infection (suspected as main culprit); hospital delirium; subclinical seizures; TIA event; vs other EEG did not show seizure focus ; [id number] continue vimpat BID (5) History of DVT (deep vein thrombosis): Plan: Continue apixaban BID Has IVC filter, unknown when placed (6) Hypothyroidism: Plan: Continue levothyroxine TSH 2.3 (7) MILK TESTER (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) shunt status: Plan: placed in 03/2006 at [facility] records from that visit reviewed op note reviewed MILK TESTER shunt is a Delta non-programmable unit - MR compatible MILK TESTER shunt appears stable on CT and MRI (8) Seizure disorder: Plan: Continue lacosamide No seizures have been observed/reported per nursing EEG negative for seizure focus but this does not rule out seizures 100% Can't rule out subclinical seizures contributing to periods of confusion/altered MS (9) Congestive heart failure: Plan: Chronic diastolic heart failure Echo 02/27 with normal EF much of her LE edema looks like lymphedema which does not respond well to diuretics wound benefit from compression stockings will hold lasix once again today consider resuming tomorrow (10) Hypokalemia: Plan: Replaced Resolved (11) Hypomagnesemia: Plan: replaced resolved (12) Normocytic anemia: Plan: ferritin 58 transferrin low-normal suspect she is Fe deficient s/p venofer 300mg IV x 3 doses this admission H/H low but stable -- plan to repeat CBC tomorrow for stability etiology of low Fe?? GI blood loss in face of chronic Eliquis use? will obtain a fecal occult (was negative in March, but will repeat) B12 level - mid 300s; will supplement is already on folate supplementation 1mg daily (13) GERD without esophagitis: Plan: cont PPI (14) Chronic anticoagulation: Plan: apixaban BID (15) Depression: Plan: initiated prozac 1 month ago by report Dr Muro increased her dose to 30mg/day a few days ago and is tolerating the larger dose (16) History of benign brain tumor: Plan: left sided hemiplegia is presumably due to atrophy/encephalomalacia from her prior brain tumor resection (right sided thalamic astrocytoma per records) she also appears to have 2 meningiomas on her MRI brain -- 1. stable 1.7 cm left lateral calcified extra-axial lesion on image 16 series 8 which likely represents a meningioma. 2. probable meningioma of the falx cerebri anteriorly on image 15 measuring 8 mm. post-discharge she will need -- 1. neurology follow-up to follow seizure d/o, imaging, etc 2. neurosurgery where we refer her will depend on what town she is placed in - numerous referrals have been placed for various snfs in different locations (17) Morbid obesity with BMI of 45.0-49.9, adult: Plan: BMI 46 (18) Abnormal brain MRI: Plan: MRI shows thickening of the pachymeninges she does not have any h/o CSF leak or postural headaches the thickening of the pachymeninges is a nonspecific finding uncertain about the etiology of the above I discussed her case informally with [facility] Neurology they recommend repeat MRI brain w/ contrast in about 2 weeks to ensure stability of the pachymeninges finding (19) UTI (urinary tract infection) due to Enterococcus: Plan: most recent urine culture grew 20,000 CFU of VRE this was obtained via straight cath uncertain of the significance of this prior urine cx was negative would be unusual to have picked up VRE from the hospital setting in just a few days 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 By report was living independently for years prior to going into [facility]. numerous referrals are pending for SNF placement. extensive conversation had with pt's sister Selin Trevino by phone on 05/08/23 update given to pt's brother in law at bedside 05/09/23 left message on sister's voicemail - Selin Trevino - on 05/12/23 will inquire with podiatry if they would be able to come and trim her toenails at her request Admission and Anticipated Discharge Date Admission Date: May 03, 2023 Subjective no issues overnight PT/OT worked with her today and got her from the bed to chair 2+ max assist she is able to weight bear on the RLE pretty decently per PT/OT patient asks for podiatry consult for nail clipping feels well otherwise and denies any complaints eating has improved last few days Review of Systems Review of Systems: gen - feels well cv - no chest pain pulm - no dyspnea GI - no abd pain or N/V; no constipation - baseline incontinence Physical Exam Physical Exam: gen - obese, NAD; looks well; sitting in chair; smiling mouth - MMM neck - no JVD heart - RRR, s1 s2, no murmur lungs - CTA b/l, decreased BS bases abd - soft NT ND BS+ ext - 1-2+ edema/lymphedema b/l, pulses 2+ b/l - lymphedema unchanged neuro - hemiplegia LUE/LLE; speech clear/fluent skin - stasis changes b/l shins; no cellulitis of either ball; scratch cervantes healed psych - awake, alert, oriented x 3 Results & Data Results & Data Vital Signs (Past 12 Hours) Vital Signs Temp Pulse Resp BP Pulse Ox O2 Del Method 05/12/23 17:05 36.9 C 80 16 147/79 H 98 Room Air 05/12/23 11:29 36.6 C 82 19 134/76 96 Room Air PG Care Time/CCT Total # of Minutes Spent Total Time Spent with Patient: Total time spent is greater than 50% in coordination of care (as documented) at patient's floor/unit and/or counseling patient: Coding Level of Care Code 71435 SUB INP/OBS CARE 2/35MIN Diagnoses Acute severe vertigo R42 Sepsis A41.9 Sepsis acute organ dysfunction status: unspecified Sepsis type: sepsis due to unspecified organism Cellulitis of right leg L03.115 Acute metabolic encephalopathy G93.41 History of DVT (deep vein thrombosis) Z86.718 Hypothyroidism E03.9 MILK TESTER (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) shunt status Z98.2 Seizure disorder G40.909 Congestive heart failure I50.9 Hypokalemia E87.6 Hypomagnesemia E83.42 Normocytic anemia D64.9 GERD without esophagitis K21.9 Chronic anticoagulation Z79.01 Depression F32.A History of benign brain tumor Z86.011 Morbid obesity with BMI of 45.0-49.9, adult E66.01; Z68.42 Abnormal brain MRI R90.89 UTI (urinary tract infection) due to Enterococcus N39.0; B95.2 (2) Sepsis Sepsis acute organ dysfunction status: unspecified Sepsis type: sepsis due to unspecified organism Qualified Code(s): A41.9 - Sepsis, unspecified organism
[2023-05-13 07:06] LABS: BUN Creatinine Ratio 15.5 (10-20); Calcium 8.7 mg/dl (8.6-10.3); Creatinine Clr Calc Pharmacy 120.8 ml/min; Est GFR (African American) 121.1 ml/min; Est GFR (Non-African American) 104.5 ml/min
--- NOTE | 2023-05-13 17:07 | Hospitalist Progress Note ---
Date of Service May 13, 2023 Assessment & Plan (1) Acute severe vertigo: Plan: 2 minute episode of spinning associated with double vision on 05/08/23. no tinnitus or hearing changes. spontaneously resolved after the 2 minutes. has never had such symptoms before. neuro exam unchanged from prior exams. does not have migraines to account for symptoms like this. central vs peripheral cause. if this was a TIA event she is already on Eliquis BID + aspirin 81mg daily. repeat head CT on 05/[address] CTA head/neck - ??left I O PSYCHOLOGIST stenosis otherwise both studies unremarkable. echo late fall 2022 was wnl. we finally received her records from [facility] in [place] where she had her shunt placed in 2006. we have the operative note from that HARM REDUCTION WORKER shunt placement. the HARM REDUCTION WORKER shunt is a non-programmable Delta device which is MRI compatible. thus, MRI w/ contrast was obtained. NO acute or chronic CVA seen but obviously numerous findings related to her prior brain tumor resection. Has not recurred (2) Sepsis: Plan: 2nd RLE cellulitis - resolved blood cx's negative completed 7+ days of IV/PO abx (3) Cellulitis of right leg: Plan: resolved (4) Acute metabolic encephalopathy: Plan: presented with such on day of admission presumed 2nd to sepsis/RLE cellulitis waxing/waning MS last week 05/07 - she was awake but unable to communicate normally; long pauses before responding, etc 05/08 - mentation MUCH improved from that point forward mentation has continued to improve each day head CT x 2 this admission neg for acute findings of note - we finally received CT head reports from [facility] as well as CT/MRI brain images via PACs spoke with radiology - they compared her outside/old CT head with the CTs this admission - largely unchanged MRI brain WITHOUT acute or chronic stroke most findings are chronic -- MRI here was compared to MRI brain done at [facility] 06/2022 (MRI images from 06/2022 are in PACS) 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 -- acute met encephalopathy from infection (suspected as main culprit); hospital delirium; subclinical seizures; TIA event; vs other EEG did not show seizure focus; continue vimpat BID Mentation at baseline 05/13 (5) History of DVT (deep vein thrombosis): Plan: Continue apixaban BID Has IVC filter, unknown when placed (6) Hypothyroidism: Plan: Continue levothyroxine TSH 2.3 (7) HARM REDUCTION WORKER (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) shunt status: Plan: placed in 03/2006 at [facility] records from that visit reviewed op note reviewed HARM REDUCTION WORKER shunt is a Delta non-programmable unit - MR compatible HARM REDUCTION WORKER shunt appears stable on CT and MRI (8) Seizure disorder: Plan: Continue lacosamide No seizures have been observed/reported per nursing EEG negative for seizure focus but this does not rule out seizures 100% Can't rule out subclinical seizures contributing to periods of confusion/altered MS (9) Congestive heart failure: Plan: Chronic diastolic heart failure Echo 02/27 with normal EF much of her LE edema looks like lymphedema which does not respond well to diuretics wound benefit from compression stockings resume lasix but change to every other day (10) Hypokalemia: Plan: Replaced Resolved (11) Hypomagnesemia: Plan: replaced resolved (12) Normocytic anemia: Plan: ferritin 58 transferrin low-normal suspect she is Fe deficient s/p venofer 300mg IV x 3 doses this admission H/H low but stable -- HCt unchanged today FOBT was negative B12 level - mid 300s; will supplement is already on folate supplementation 1mg daily (13) GERD without esophagitis: Plan: cont PPI (14) Chronic anticoagulation: Plan: apixaban BID (15) Depression: Plan: initiated prozac 1 month ago by report, increased to 30 mg a week ago - tolerating well, motivation with therapies improved per her sister (16) History of benign brain tumor: Plan: left sided hemiplegia is presumably due to atrophy/encephalomalacia from her prior brain tumor resection (right sided thalamic astrocytoma per records) she also appears to have 2 meningiomas on her MRI brain -- 1. stable 1.7 cm left lateral calcified extra-axial lesion on image 16 series 8 which likely represents a meningioma. 2. probable meningioma of the falx cerebri anteriorly on image 15 measuring 8 mm. post-discharge she will need -- 1. neurology follow-up to follow seizure d/o, imaging, etc 2. neurosurgery where we refer her will depend on what town she is placed in - numerous referrals have been placed for various snfs in different locations (17) Morbid obesity with BMI of 45.0-49.9, adult: Plan: BMI 46 (18) Abnormal brain MRI: Plan: MRI shows thickening of the pachymeninges she does not have any h/o CSF leak or postural headaches the thickening of the pachymeninges is a nonspecific finding uncertain about the etiology of the above I discussed her case informally with [facility] they recommend repeat MRI brain w/ contrast in about 2 weeks to ensure stability of the pachymeninges finding (this will be around 05/24/23) (19) UTI (urinary tract infection) due to Enterococcus: Plan: most recent urine culture grew 20,000 CFU of VRE this was obtained via straight cath uncertain of the significance of this prior urine cx was negative would be unusual to have picked up VRE from the hospital setting in just a few days 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 By report was living independently for years prior to going into [facility]. numerous referrals are pending for SNF placement. extensive conversation had with pt's sister Selin Trevino by phone on 05/08/23 update given to pt's brother in law at bedside 05/09/23 left message on sister's voicemail - Selin Trevino - on 05/12/23 Admission and Anticipated Discharge Date Admission Date: May 03, 2023 Subjective Cassy requests not to have IV any more. Otherwise no complaints. Tolerating increased prozac well. Motivation seems improved based on PT/OT notes Physical Exam 2 Physical Exam: PHYSICAL EXAMINATION Last 24h vital signs reviewed, see documentation in flowsheet General: sleeping but aroused easily HEENT: Normocephalic, atraumatic, pupils round and equal, sclerae anicteric, no conjunctival injection, moist mucus membranes. Lungs: Normal respiratory effort. Clear to auscultation bilaterally. No RRW Heart: Regular rate and rhythm, no murmurs. No JVD Abdomen: Soft, nontender, nondistended. Bowel sounds present. Extremities: Warm, dry, well-perfused. 2+ extremity edema unchanged. hemosiderosis and cobblestoning consistent with chronic venous stasis. right lower ball with area of excoriations shallow wounds and erythema stable/improved and healing, no warmth Neuro: awake and alert, oriented to hospital and basic situation, face symmetric, left hand and arm are weak which is her baseline Psych: normal affect and behavior, denies depressed mood Results & Data Results & Data Vital Signs (Past 12 Hours) Vital Signs Temp Pulse Pulse Resp BP Pulse Ox O2 Del Method 05/13/23 15:24 36.6 C 67 16 109/70 94 Room Air 05/13/23 07:34 Room Air 05/13/23 07:25 36.7 C 75 16 122/79 96 Room Air Laboratory Results 05/13/23 06:17 05/13/23 06:17 PG Care Time/CCT Total # of Minutes Spent Total Time Spent with Patient: Total time spent is greater than 50% in coordination of care (as documented) at patient's floor/unit and/or counseling patient: Coding Level of Care Code 05103 SUB INP/OBS CARE 2/35MIN Diagnoses Acute severe vertigo R42 Sepsis A41.9 Sepsis acute organ dysfunction status: unspecified Sepsis type: sepsis due to unspecified organism Cellulitis of right leg L03.115 Acute metabolic encephalopathy G93.41 History of DVT (deep vein thrombosis) Z86.718 Hypothyroidism E03.9 HARM REDUCTION WORKER (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) shunt status Z98.2 Seizure disorder G40.909 Congestive heart failure I50.9 Hypokalemia E87.6 Hypomagnesemia E83.42 Normocytic anemia D64.9 GERD without esophagitis K21.9 Chronic anticoagulation Z79.01 Depression F32.A History of benign brain tumor Z86.011 Morbid obesity with BMI of 45.0-49.9, adult E66.01; Z68.42 Abnormal brain MRI R90.89 UTI (urinary tract infection) due to Enterococcus N39.0; B95.2 (2) Sepsis Sepsis acute organ dysfunction status: unspecified Sepsis type: sepsis due to unspecified organism Qualified Code(s): A41.9 - Sepsis, unspecified organism
[2023-05-14] MEDS: FUROSEMIDE 20 MG TAB PO SCH (09:06)
--- NOTE | 2023-05-14 14:20 | Hospitalist Progress Note ---
Date of Service May 14, 2023 Assessment & Plan (1) Acute severe vertigo: Plan: 2 minute episode of spinning associated with double vision on 05/08/23. no tinnitus or hearing changes. no changes in neuro exam spontaneously resolved after the 2 minutes. central vs peripheral cause. repeat head CT on 05/[address] CTA head/neck - left MEDICAL CHEMIST stenosis otherwise both studies unremarkable. echo late fall 2022 was wnl. we finally received her records from [facility] in [place] where she had her shunt placed in 2006. 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 the MAINTENANCE MACHINE REPAIRER shunt is a non-programmable Delta device which is MRI compatible. thus, MRI w/ contrast was obtained. NO acute or chronic CVA seen but obviously numerous findings related to her prior brain tumor resection. Has not recurred if this was a TIA event she is already on Eliquis BID + aspirin 81mg daily. (2) Sepsis: Plan: 2nd RLE cellulitis - resolved blood cx's negative completed 7+ days of IV/PO abx (3) Cellulitis of right leg: Plan: resolved (4) Acute metabolic encephalopathy: Plan: presented with such on day of admission presumed 2nd to sepsis/RLE cellulitis waxing/waning MS last week 05/07 - she was awake but unable to communicate normally; long pauses before responding, etc 05/08 - mentation MUCH improved from that point forward mentation has continued to improve each day head CT x 2 this admission neg for acute findings of note - we finally received CT head reports from [facility] as well as CT/MRI brain images via PACs spoke with radiology - they compared her outside/old CT head with the CTs this admission - largely unchanged MRI brain WITHOUT acute or chronic stroke most findings are chronic -- MRI here was compared to MRI brain done at [facility] 06/2022 (MRI images from 06/2022 are in PACS) 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 -- acute met encephalopathy from infection (suspected as main culprit); hospital delirium; subclinical seizures; TIA event; vs other EEG did not show seizure focus; continue vimpat BID Mentation at baseline 05/13, 05/14 (5) History of DVT (deep vein thrombosis): Plan: Continue apixaban BID Has IVC filter, unknown when placed (6) Hypothyroidism: Plan: Continue levothyroxine TSH 2.3 (7) 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 REPAIRER (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) shunt status: Plan: placed in 03/2006 at [facility] records from that visit reviewed op note reviewed MAINTENANCE MACHINE REPAIRER shunt is a Delta non-programmable unit - MR compatible MAINTENANCE MACHINE REPAIRER shunt appears stable on CT and MRI (8) Seizure disorder: Plan: Continue lacosamide No seizures have been observed/reported per nursing EEG negative for seizure focus but this does not rule out seizures 100% Can't rule out subclinical seizures contributing to periods of confusion/altered MS (9) Congestive heart failure: Plan: Chronic diastolic heart failure Echo 02/27 with normal EF much of her LE edema looks like lymphedema which does not respond well to diuretics wound benefit from compression stockings resume lasix but changed to every other day BMP in a few days (10) Hypokalemia: Plan: Replaced Resolved (11) Hypomagnesemia: Plan: replaced resolved (12) Normocytic anemia: Plan: ferritin 58 transferrin low-normal, likely iron deficient s/p venofer 300mg IV x 3 doses this admission H/H low but stable FOBT was negative B12 level - mid 300s; will supplement is already on folate supplementation 1mg daily (13) GERD without esophagitis: Plan: cont PPI (14) Chronic anticoagulation: Plan: apixaban BID (15) Depression: Plan: initiated prozac 1 month ago by report, increased to 30 mg a week ago - tolerating well, motivation with therapies improved per her sister (16) History of benign brain tumor: Plan: left sided hemiplegia is presumably due to atrophy/encephalomalacia from her prior brain tumor resection (right sided thalamic astrocytoma per records) she also appears to have 2 meningiomas on her MRI brain -- 1. stable 1.7 cm left lateral calcified extra-axial lesion on image 16 series 8 which likely represents a meningioma. 2. probable meningioma of the falx cerebri anteriorly on image 15 measuring 8 mm. post-discharge she will need -- 1. neurology follow-up to follow seizure d/o, imaging, etc 2. neurosurgery where we refer her will depend on what town she is placed in - numerous referrals have been placed for various snfs in different locations (17) Morbid obesity with BMI of 45.0-49.9, adult: Plan: BMI 46 (18) Abnormal brain MRI: Plan: MRI shows thickening of the pachymeninges she does not have any h/o CSF leak or postural headaches the thickening of the pachymeninges is a nonspecific finding uncertain about the etiology of the above I discussed her case informally with [facility] they recommend repeat MRI brain w/ contrast in about 2 weeks to ensure stability of the pachymeninges finding (this will be around 05/24/23) (19) UTI (urinary tract infection) due to Enterococcus: Plan: most recent urine culture grew 20,000 CFU of VRE this was obtained via straight cath. associated UA was negative (except for blood and had menses at the time) -nonetheless treated with daptomycin 4/5 doses given Plan had been a resident of [facility] but family refuses her return to that facility. By report was living independently for years prior to going into [facility]. numerous referrals are pending for SNF placement. extensive conversation had with pt's sister Selin Trevino by phone on 05/08/23 update given to pt's brother in law at bedside 05/09/23 left message on sister's voicemail - Selin Trevino - on 05/12/23 Admission and Anticipated Discharge Date Admission Date: May 03, 2023 Subjective main request from Cassy today is that she wants her brake mechanic to come cut her toenails. No leg pain. No further vertigo symptoms. Doing well with PT/OT last few sessions. Physical Exam Physical Exam: PHYSICAL EXAMINATION Last 24h vital signs reviewed, see documentation in flowsheet General: awake alert and watching TV HEENT: Normocephalic, atraumatic, pupils round and equal, sclerae anicteric, no conjunctival injection, moist mucus membranes. Lungs: Normal respiratory effort. Clear to auscultation bilaterally. No RRW Heart: Regular rate and rhythm, no murmurs. No JVD Abdomen: Soft, nontender, nondistended. Bowel sounds present. Extremities: Warm, dry, well-perfused. 2+ extremity edema unchanged. hemosiderosis and cobblestoning consistent with chronic venous stasis. right lower ball with area of excoriations erythema fading no warmth Neuro: awake and alert, oriented to hospital and basic situation, face symmetric, left hand and arm are weak which is her baseline Psych: normal affect and behavior, denies depressed mood Results & Data Results & Data Vital Signs (Past 12 Hours) Vital Signs Temp Pulse Resp BP Pulse Ox O2 Del Method 05/14/23 08:30 Room Air 05/14/23 07:20 36.5 C 68 16 119/76 94 Room Air PG Care Time/CCT Total # of Minutes Spent Total Time Spent with Patient: Total time spent is greater than 50% in coordination of care (as documented) at patient's floor/unit and/or counseling patient: Coding Level of Care Code 69015 SUB INP/OBS CARE 2/35MIN Diagnoses Acute severe vertigo R42 Sepsis A41.9 Sepsis acute organ dysfunction status: unspecified Sepsis type: sepsis due to unspecified organism Cellulitis of right leg L03.115 Acute metabolic encephalopathy G93.41 History of DVT (deep vein thrombosis) Z86.718 Hypothyroidism E03.9 MAINTENANCE MACHINE REPAIRER (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) shunt status Z98.2 Seizure disorder G40.909 Congestive heart failure I50.9 Hypokalemia E87.6 Hypomagnesemia E83.42 Normocytic anemia D64.9 GERD without esophagitis K21.9 Chronic anticoagulation Z79.01 Depression F32.A History of benign brain tumor Z86.011 Morbid obesity with BMI of 45.0-49.9, adult E66.01; Z68.42 Abnormal brain MRI R90.89 UTI (urinary tract infection) due to Enterococcus N39.0; B95.2 (2) Sepsis Sepsis acute organ dysfunction status: unspecified Sepsis type: sepsis due to unspecified organism Qualified Code(s): A41.9 - Sepsis, unspecified organism
--- NOTE | 2023-05-15 16:24 | Hospitalist Progress Note ---
Date of Service May 15, 2023 Assessment & Plan (1) Acute severe vertigo: Plan: 2 minute episode of spinning associated with double vision on 05/08/23. no tinnitus or hearing changes. no changes in neuro exam spontaneously resolved after the 2 minutes. central vs peripheral cause. repeat head CT on 05/[address] CTA head/neck - left BREAKER HAND stenosis otherwise both studies unremarkable. echo late fall 2022 was wnl. we finally received her records from [facility] in [place] where she had her shunt placed in 2006. we have the operative note from that CAT DOG OR OTHER PET GROOMER shunt placement. the CAT DOG OR OTHER PET GROOMER shunt is a non-programmable Delta device which is MRI compatible. thus, MRI w/ contrast was obtained. NO acute or chronic CVA seen but obviously numerous findings related to her prior brain tumor resection. Has not recurred if this was a TIA event she is already on Eliquis BID + aspirin 81mg daily. (2) Sepsis: Plan: 2nd RLE cellulitis - resolved blood cx's negative completed 7+ days of IV/PO abx (3) Cellulitis of right leg: Plan: resolved (4) Acute metabolic encephalopathy: Plan: presented with such on day of admission presumed 2nd to sepsis/RLE cellulitis waxing/waning MS last week 05/07 - she was awake but unable to communicate normally; long pauses before responding, etc 05/08 - mentation MUCH improved from that point forward mentation has continued to improve each day head CT x 2 this admission neg for acute findings of note - we finally received CT head reports from [facility] as well as CT/MRI brain images via PACs spoke with radiology - they compared her outside/old CT head with the CTs this admission - largely unchanged MRI brain WITHOUT acute or chronic stroke most findings are chronic -- MRI here was compared to MRI brain done at [facility] 06/2022 (MRI images from 06/2022 are in PACS) 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 -- acute met encephalopathy from infection (suspected as main culprit); hospital delirium; subclinical seizures; TIA event; vs other EEG did not show seizure focus; continue vimpat BID Mentation at baseline 05/13-05/15 (5) History of DVT (deep vein thrombosis): Plan: Continue apixaban BID Has IVC filter, unknown when placed (6) Hypothyroidism: Plan: Continue levothyroxine TSH 2.3 (7) CAT DOG OR OTHER PET GROOMER (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) shunt status: Plan: placed in 03/2006 at [facility] records from that visit reviewed op note reviewed CAT DOG OR OTHER PET GROOMER shunt is a Delta non-programmable unit - MR compatible CAT DOG OR OTHER PET GROOMER shunt appears stable on CT and MRI (8) Seizure disorder: Plan: Continue lacosamide No seizures have been observed/reported per nursing EEG negative for seizure focus (9) Congestive heart failure: Plan: Chronic diastolic heart failure Echo 02/27 with normal EF much of her LE edema looks like lymphedema which does not respond well to diuretics wound benefit from compression stockings resume lasix but changed to every other day. Edema is improved compared to at admission. BMP in a few days Ordered weights (10) Hypokalemia: Plan: Replaced Resolved (11) Hypomagnesemia: Plan: replaced resolved (12) Normocytic anemia: Plan: ferritin 58 transferrin low-normal, likely iron deficient s/p venofer 300mg IV x 3 doses this admission H/H low but stable FOBT was negative B12 level - mid 300s; started supplement is already on folate supplementation 1mg daily (13) GERD without esophagitis: Plan: cont PPI (14) Chronic anticoagulation: Plan: apixaban BID (15) Depression: Plan: initiated prozac 1 month ago by report, increased to 30 mg a week ago - tolerating well, motivation with therapies improved per her sister (16) History of benign brain tumor: Plan: left sided hemiplegia is presumably due to atrophy/encephalomalacia from her prior brain tumor resection (right sided thalamic astrocytoma per records) she also appears to have 2 meningiomas on her MRI brain -- 1. stable 1.7 cm left lateral calcified extra-axial lesion on image 16 series 8 which likely represents a meningioma. 2. probable meningioma of the falx cerebri anteriorly on image 15 measuring 8 mm. post-discharge she will need -- 1. neurology follow-up to follow seizure d/o, imaging, etc 2. neurosurgery where we refer her will depend on what town she is placed in - numerous referrals have been placed for various snfs in different locations (17) Morbid obesity with BMI of 45.0-49.9, adult: Plan: BMI 46 (18) Abnormal brain MRI: Plan: MRI shows thickening of the pachymeninges she does not have any h/o CSF leak or postural headaches the thickening of the pachymeninges is a nonspecific finding uncertain about the etiology of the above I discussed her case informally with [facility] Neurology they recommend repeat MRI brain w/ contrast in about 2 weeks to ensure stability of the pachymeninges finding (this will be around 05/24/23) (19) UTI (urinary tract infection) due to Enterococcus: Plan: most recent urine culture grew 20,000 CFU of VRE this was obtained via straight cath. associated UA was negative (except for blood and had menses at the time) -nonetheless treated with daptomycin 5/5 doses last dose today Plan had been a resident of [facility] but family refuses her return to that facility. By report was living independently for years prior to going into [facility]. numerous referrals are pending for SNF placement. extensive conversation had with pt's sister Selin Trevino by phone on 05/08/23 update given to pt's brother in law at bedside 05/09/23 left message on sister's voicemail - Selin Trevino - on 05/12/23 Admission and Anticipated Discharge Date Admission Date: May 03, 2023 Subjective seen midday and was napping, stayed a little sleepy. interested in getting her PIV out. leg edema seems slightly better. Physical Exam Physical Exam: PHYSICAL EXAMINATION Last 24h vital signs reviewed, see documentation in flowsheet General: napping and watching TV HEENT: Normocephalic, atraumatic, pupils round and equal, sclerae anicteric, no conjunctival injection, moist mucus membranes. Lungs: Normal respiratory effort. Clear to auscultation bilaterally. No RRW Heart: Regular rate and rhythm, no murmurs. No JVD Abdomen: Soft, nontender, nondistended. Bowel sounds present. Extremities: Warm, dry, well-perfused. 2+ extremity edema seems mildly impr tunde. bilateral chronic erythema improved. hemosiderosis and cobblestoning consistent with chronic venous stasis. Neuro: awake and alert, oriented to hospital and basic situation, face symmetric, left hand and arm are weak which is her baseline Psych: normal affect and behavior Results & Data Results & Data Vital Signs (Past 12 Hours) Vital Signs Temp Pulse Resp BP Pulse Ox O2 Del Method 05/15/23 15:37 36.7 C 70 16 119/80 96 Room Air 05/15/23 07:16 36.8 C 63 16 109/72 95 Room Air PG Care Time/CCT Total # of Minutes Spent Total Time Spent with Patient: Total time spent is greater than 50% in coordination of care (as documented) at patient's floor/unit and/or counseling patient: Coding Level of Care Code 20624 SUB INP/OBS CARE /25MIN Diagnoses Acute severe vertigo R42 Sepsis A41.9 Sepsis acute organ dysfunction status: unspecified Sepsis type: sepsis due to unspecified organism Cellulitis of right leg L03.115 Acute metabolic encephalopathy G93.41 History of DVT (deep vein thrombosis) Z86.718 Hypothyroidism E03.9 CAT DOG OR OTHER PET GROOMER (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) shunt status Z98.2 Seizure disorder G40.909 Congestive heart failure I50.9 Hypokalemia E87.6 Hypomagnesemia E83.42 Normocytic anemia D64.9 GERD without esophagitis K21.9 Chronic anticoagulation Z79.01 Depression F32.A History of benign brain tumor Z86.011 Morbid obesity with BMI of 45.0-49.9, adult E66.01; Z68.42 Abnormal brain MRI R90.89 UTI (urinary tract infection) due to Enterococcus N39.0; B95.2 (2) Sepsis Sepsis acute organ dysfunction status: unspecified Sepsis type: sepsis due to unspecified organism Qualified Code(s): A41.9 - Sepsis, unspecified organism
--- NOTE | 2023-05-16 17:03 | Hospitalist Progress Note ---
Date of Service May 16, 2023 Assessment & Plan (1) Acute severe vertigo: Plan: 2 minute episode of spinning associated with double vision on 05/08/23. no tinnitus or hearing changes. no changes in neuro exam spontaneously resolved after the 2 minutes. central vs peripheral cause. repeat head CT on 05/[address] CTA head/neck - left IRRIGATION FLUME LAYER stenosis otherwise both studies unremarkable. echo late fall 2022 was wnl. we finally received her records from [facility] in [place] where she had her shunt placed in 2006. we have the operative note from that EDUCATION DIAGNOSTICIAN shunt placement. the EDUCATION DIAGNOSTICIAN shunt is a non-programmable Delta device which is MRI compatible. thus, MRI w/ contrast was obtained. NO acute or chronic CVA seen but obviously numerous findings related to her prior brain tumor resection. Has not recurred if this was a TIA event she is already on Eliquis BID + aspirin 81mg daily. (2) Sepsis: Plan: 2nd RLE cellulitis - resolved blood cx's negative completed 7+ days of IV/PO abx (3) Cellulitis of right leg: Plan: resolved (4) Acute metabolic encephalopathy: Plan: presented with such on day of admission presumed 2nd to sepsis/RLE cellulitis waxing/waning MS last week 05/07 - she was awake but unable to communicate normally; long pauses before responding, etc 05/08 - mentation MUCH improved from that point forward mentation has continued to improve each day head CT x 2 this admission neg for acute findings of note - we finally received CT head reports from [facility] as well as CT/MRI brain images via PACs spoke with radiology - they compared her outside/old CT head with the CTs this admission - largely unchanged MRI brain WITHOUT acute or chronic stroke most findings are chronic -- MRI here was compared to MRI brain done at [facility] 06/2022 (MRI images from 06/2022 are in PACS) 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 -- acute met encephalopathy from infection (suspected as main culprit); hospital delirium; subclinical seizures; TIA event; vs other EEG did not show seizure focus; continue vimpat BID Mentation at baseline 26-2/8 Very sleepy last 24h -will update labs with CBC, BMP, vbg to check for hypercarbia -reviewed medlist only potentially sedating med is lacosamide -overnight oximetry eval for possible TERI (5) History of DVT (deep vein thrombosis): Plan: Continue apixaban BID Has IVC filter, unknown when placed (6) Hypothyroidism: Plan: Continue levothyroxine TSH 2.3 (7) EDUCATION DIAGNOSTICIAN (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) shunt status: Plan: placed in 03/2006 at [facility] records from that visit reviewed op note reviewed EDUCATION DIAGNOSTICIAN shunt is a Delta non-programmable unit - MR compatible EDUCATION DIAGNOSTICIAN shunt appears stable on CT and MRI (8) Seizure disorder: Plan: Continue lacosamide No seizures have been observed/reported per nursing EEG negative for seizure focus (9) Congestive heart failure: Plan: Chronic diastolic heart failure Echo 02/27 with normal EF much of her LE edema looks like lymphedema which does not respond well to diuretics wound benefit from compression stockings resumed lasix but changed to every other day. Edema is improved compared to at admission. BMP today Ordered weights (10) Hypokalemia: Plan: Replaced Resolved (11) Hypomagnesemia: Plan: replaced resolved (12) Normocytic anemia: Plan: ferritin 58 transferrin low-normal, likely iron deficient s/p venofer 300mg IV x 3 doses this admission H/H low but stable FOBT was negative B12 level - mid 300s; started supplement is already on folate supplementation 1mg daily (13) GERD without esophagitis: Plan: cont PPI (14) Chronic anticoagulation: Plan: apixaban BID (15) Depression: Plan: initiated prozac 1 month ago by report, increased to 30 mg a week ago - tolerating well, motivation with therapies improved per her sister (16) History of benign brain tumor: Plan: left sided hemiplegia is presumably due to atrophy/encephalomalacia from her prior brain tumor resection (right sided thalamic astrocytoma per records) she also appears to have 2 meningiomas on her MRI brain -- 1. stable 1.7 cm left lateral calcified extra-axial lesion on image 16 series 8 which likely represents a meningioma. 2. probable meningioma of the falx cerebri anteriorly on image 15 measuring 8 mm. post-discharge she will need -- 1. neurology follow-up to follow seizure d/o, imaging, etc 2. neurosurgery where we refer her will depend on what town she is placed in - numerous referrals have been placed for various snfs in different locations (17) Morbid obesity with BMI of 45.0-49.9, adult: Plan: BMI 46 (18) Abnormal brain MRI: Plan: MRI shows thickening of the pachymeninges she does not have any h/o CSF leak or postural headaches the thickening of the pachymeninges is a nonspecific finding uncertain about the etiology of the above I discussed her case informally with [facility] Neurology they recommend repeat MRI brain w/ contrast in about 2 weeks to ensure stability of the pachymeninges finding (this will be around 05/24/23) (19) UTI (urinary tract infection) due to Enterococcus: Plan: most recent urine culture grew 20,000 CFU of VRE this was obtained via straight cath. associated UA was negative (except for blood and had menses at the time) -nonetheless treated with daptomycin 5/5 doses last dose 05/15 Plan had been a resident of [facility] but family refuses her return to that facility. By report was living independently for years prior to going into [facility]. numerous referrals are pending for SNF placement. extensive conversation had with pt's sister Selin Trevino by phone on 05/08/23 update given to pt's brother in law at bedside 05/09/23 left message on sister's voicemail - Selin Trevino - on 05/12/23 Admission and Anticipated Discharge Date Admission Date: May 03, 2023 Subjective Was sleepy today. Woke up and made normal responses but went back to sleep. Sleeping so OT not done and refused PT before and after lunch despite the fact I discussed with her this morning importance of doing therapy when therapist available if she wants to get better. Physical Exam Physical Exam: PHYSICAL EXAMINATION Last 24h vital signs reviewed, see documentation in flowsheet General: sleeping and I woke her up HEENT: Normocephalic, atraumatic, pupils round and equal, sclerae anicteric, no conjunctival injection, moist mucus membranes. Lungs: Normal respiratory effort. Clear to auscultation bilaterally. No RRW Heart: Regular rate and rhythm, no murmurs. No JVD Abdomen: Soft, nontender, nondistended. Bowel sounds present. Extremities: Warm, dry, well-perfused. 2+ extremity edema improved. bilateral chronic erythema improved. hemosiderosis and cobblestoning consistent with chronic venous stasis. Neuro: sleeping but woke up and spoke with me but went back to sleep, oriented to hospital and basic situation, face symmetric, left hand and arm are weak which is her baseline Psych: normal affect and behavior Results & Data Results & Data Vital Signs (Past 12 Hours) Vital Signs Temp Pulse Pulse Resp BP Pulse Ox O2 Del Method 05/16/23 13:57 36.7 C 75 16 112/71 95 Room Air 05/16/23 11:53 36.6 C 65 16 125/77 94 Room Air 05/16/23 08:45 Room Air 05/16/23 07:56 36.8 C 70 18 119/72 96 Room Air 05/16/23 07:15 36.7 C 57 L 16 127/74 98 Room Air PG Care Time/CCT Total # of Minutes Spent Total Time Spent with Patient: Total time spent is greater than 50% in coordination of care (as documented) at patient's floor/unit and/or counseling patient: Coding Level of Care Code 95923 SUB INP/OBS CARE 2/35MIN Diagnoses Acute severe vertigo R42 Sepsis A41.9 Sepsis acute organ dysfunction status: unspecified Sepsis type: sepsis due to unspecified organism Cellulitis of right leg L03.115 Acute metabolic encephalopathy G93.41 History of DVT (deep vein thrombosis) Z86.718 Hypothyroidism E03.9 EDUCATION DIAGNOSTICIAN (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) shunt status Z98.2 Seizure disorder G40.909 Congestive heart failure I50.9 Hypokalemia E87.6 Hypomagnesemia E83.42 Normocytic anemia D64.9 GERD without esophagitis K21.9 Chronic anticoagulation Z79.01 Depression F32.A History of benign brain tumor Z86.011 Morbid obesity with BMI of 45.0-49.9, adult E66.01; Z68.42 Abnormal brain MRI R90.89 UTI (urinary tract infection) due to Enterococcus N39.0; B95.2 (2) Sepsis Sepsis acute organ dysfunction status: unspecified Sepsis type: sepsis due to unspecified organism Qualified Code(s): A41.9 - Sepsis, unspecified organism
[2023-05-16 23:36] LABS: Albumin Globulin Ratio 1.1 (0.9-2); Albumin Level 3.5 gm/dl (3.4-5.0); BUN Creatinine Ratio 11.7 (10-20); Bilirubin,Total 0.3 mg/dl (0.2-1.0); Calcium 8.5 mg/dl (8.6-10.3); Creatinine Clr Calc Pharmacy 116.8 ml/min; Est GFR (African American) 119.8 ml/min; Est GFR (Non-African American) 103.3 ml/min; Globulin 3.3 gm/dl (2.5-4.0); Potassium 4.2 mmol/L (3.5-5.1); Total Protein 6.8 gm/dl (6.0-8.3)
[2023-05-17 00:32] LABS: Hematocrit (blood only) 32.5 % (37.0-47.0); Hemoglobin 9.2 g/dl (12.0-16.0); Mean Corpuscular Hemoglobin 23.2 pg (25.0-34.0); Mean Corpuscular Hgb Conc 28.3 g/dL (32.0-36.0); Mean Corpuscular Volume 81.9 fL (80.0-100.0); Platelet Count 288 K/uL (130-400); RDW Coefficient of Variation 22.4 % (11.5-14.5); RDW Standard Deviation 64.9 fL (36.4-46.3); Red Blood Count 3.97 M/uL (4.20-5.40); White Blood Count 5.47 K/ul (4.8-10.8)
[2023-05-17 00:34] LABS: Basophils # (auto) 0.02 K/uL (0.00-0.20); Basophils % (auto) 0.4 %; Eosinophils # (auto) 0.19 K/uL (0.00-0.50); Eosinophils % (auto) 3.5 %; Immature Granulocytes # (auto) 0.02 K/uL (0.01-0.20); Immature Granulocytes % (auto) 0.4 %; Lymphocytes # (auto) 1.09 K/uL (1.20-3.40); Lymphocytes % (auto) 19.9 %; Monocytes # (auto) 0.22 K/uL (0.11-0.59); Neutrophils # (auto) 3.93 K/uL (1.40-6.50); Neutrophils % (auto) 71.8 %
[2023-05-17 11:32] LABS: Base Excess VBG 7.8 mEq/L; HCO3 VBG 33 mmol/L; PCO2 VBG 50 mmHg (38-50); PO2 VBG 60 mmHg; pH VBG 7.43 (7.36-7.41)
[2023-05-17 12:06] LABS: Appearance Urine Cloudy (Clear); Bacteria Urine Automated Negative (Negative); Bilirubin Urine Negative (Negative); Blood Urine Negative (Negative); Color Urine Dark Yellow; Epithelial Cell Urine Auto >30 /lpf (0-5); Glucose Urine UA Negative (Negative); Ketones Urine Trace (Negative); Leukocyte Esterase Urine Trace (Negative); Nitrite Urine Negative (Negative); Protein Urine Trace (Negative); RBC Urine Automated 0-4 /hpf (0-4); Specific Gravity Urine 1.027 (1.000-1.030); Urobilinogen Urine Negative (Negative); pH Urine 5.5 (4.5-7.5)
[2023-05-17] MEDS ORDERED: DEXTROSE 5% IV SCH (14:00)
[2023-05-17] MEDS ORDERED: MINI B IV SCH (14:00)
[2023-05-17] MEDS ORDERED: CEFTRIAXONE SODIUM IV SCH (14:00)
[2023-05-17] MEDS: SULFAMETHOXAZOLE/TRIMETHOPRIM DS 800/160MG TAB PO SCH (15:10)
--- NOTE | 2023-05-17 17:09 | Hospitalist Progress Note ---
Date of Service May 17, 2023 Assessment & Plan (1) Acute metabolic encephalopathy: Plan: presented with such on day of admission presumed 2nd to sepsis/RLE cellulitis waxing/waning MS last week 05/07 - she was awake but unable to communicate normally; long pauses before responding, etc 05/08 - mentation MUCH improved from that point forward mentation has continued to improve each day head CT x 2 this admission neg for acute findings of note - we finally received CT head reports from [facility] as well as CT/MRI brain images via PACs spoke with radiology - they compared her outside/old CT head with the CTs this admission - largely unchanged MRI brain WITHOUT acute or chronic stroke most findings are chronic -- MRI here was compared to MRI brain done at [facility] 06/2022 (MRI images from 06/2022 are in PACS) 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 -- acute met encephalopathy from infection (suspected as main culprit); hospital delirium; subclinical seizures; TIA event; vs other EEG did not show seizure focus; continue vimpat BID Mentation at baseline 05/13-05/15 Very sleepy 05/16-05/17 and confused -ordered update labs with CBC, BMP, vbg to check for hypercarbia - reviewed and all unremarkable -reviewed medlist only potentially sedating med is lacosamide - consider tapering this since she has done poorly the past year on AED (on keppra, tapered off and did well in interim, then on lacosamide because of vague spells concurrent with admission for acute encephalopathy and UTIs) -overnight oximetry eval for possible TERI - was normal / no desats -decreased prozac back to 20 mg though unlikely to be the culprit -repeat UA with mild pyuria, started on bactrim pending culture -no other infectious s/sx on exam -consider moving up repeat brain MRI, reconsult neurology -AM CBC BMP -will need IV fluids if continuing to eat/drink poorly in next 12-24h -discussed extensively with her sister at bedside today, 2 bedside visits (2) UTI (urinary tract infection) due to Enterococcus: Plan: most recent urine culture grew 20,000 CFU of VRE this was obtained via straight cath. associated UA was negative (except for blood and had menses at the time) -nonetheless treated with daptomycin 5/5 doses last dose 05/15 (3) Acute severe vertigo: Plan: 2 minute episode of spinning associated with double vision on 05/08/23. no tinnitus or hearing changes. no changes in neuro exam spontaneously resolved after the 2 minutes. central vs peripheral cause. repeat head CT on 05/[address] CTA head/neck - left HEDGE FUND ACCOUNTANT stenosis otherwise both studies unremarkable. echo late fall 2022 was wnl. we finally received her records from [facility] in [place] where she had her shunt placed in 2006. we have the operative note from that OBSTETRICS AND GYNECOLOGY PROFESSOR shunt placement. the OBSTETRICS AND GYNECOLOGY PROFESSOR shunt is a non-programmable Delta device which is MRI compatible. thus, MRI w/ contrast was obtained. NO acute or chronic CVA seen but obviously numerous findings related to her prior brain tumor resection. Has not recurred if this was a TIA event she is already on Eliquis BID + aspirin 81mg daily. (4) Sepsis: Plan: 2nd RLE cellulitis - resolved blood cx's negative completed 7+ days of IV/PO abx (5) Cellulitis of right leg: Plan: resolved (6) History of DVT (deep vein thrombosis): Plan: Continue apixaban BID Has IVC filter, unknown when placed (7) Hypothyroidism: Plan: Continue levothyroxine TSH 2.3 (8) OBSTETRICS AND GYNECOLOGY PROFESSOR (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) shunt status: Plan: placed in 03/2006 at [facility] records from that visit reviewed op note reviewed OBSTETRICS AND GYNECOLOGY PROFESSOR shunt is a Delta non-programmable unit - MR compatible OBSTETRICS AND GYNECOLOGY PROFESSOR shunt appears stable on CT and MRI (9) Seizure disorder: Plan: Continue lacosamide No seizures have been observed/reported per nursing EEG negative for seizure focus -consider tapering lacosamide as discussed above (10) Congestive heart failure: Plan: Chronic diastolic heart failure Echo 02/27 with normal EF much of her LE edema looks like lymphedema which does not respond well to diuretics wound benefit from compression stockings resumed lasix but changed to every other day. Edema is improved compared to at admission. BMP today Ordered weights -lasix held 05/17 because lethargic and poor po (11) Hypokalemia: Plan: Replaced Resolved (12) Hypomagnesemia: Plan: replaced resolved (13) Normocytic anemia: Plan: ferritin 58 transferrin low-normal, likely iron deficient s/p venofer 300mg IV x 3 doses this admission H/H low but stable FOBT was negative B12 level - mid 300s; started supplement is already on folate supplementation 1mg daily (14) GERD without esophagitis: Plan: cont PPI (15) Chronic anticoagulation: Plan: apixaban BID (16) Depression: Plan: initiated prozac 1 month ago by report, increased to 30 mg a week ago - -discussed with her sister, decreased back to 20 mg in case contributing to mental status changes (17) History of benign brain tumor: Plan: left sided hemiplegia is presumably due to atrophy/encephalomalacia from her prior brain tumor resection (right sided thalamic astrocytoma per records) she also appears to have 2 meningiomas on her MRI brain -- 1. stable 1.7 cm left lateral calcified extra-axial lesion on image 16 series 8 which likely represents a meningioma. 2. probable meningioma of the falx cerebri anteriorly on image 15 measuring 8 mm. post-discharge she will need -- 1. neurology follow-up to follow seizure d/o, imaging, etc 2. neurosurgery where we refer her will depend on what town she is placed in - numerous referrals have been placed for various snfs in different locations (18) Morbid obesity with BMI of 45.0-49.9, adult: Plan: BMI 46 (19) Abnormal brain MRI: Plan: MRI shows thickening of the pachymeninges she does not have any h/o CSF leak or postural headaches the thickening of the pachymeninges is a nonspecific finding uncertain about the etiology of the above I discussed her case informally with [facility] they recommend repeat MRI brain w/ contrast in about 2 weeks to ensure stability of the pachymeninges finding (this will be around 05/24/23) Plan had been a resident of [facility] but family refuses her return to that facility. By report was living independently for years prior to going into [facility]. numerous referrals are pending for SNF placement. extensive conversation had with pt's sister Selin Trevino by phone on 05/08/23 update given to pt's brother in law at bedside 05/09/23 left message on sister's voicemail - Selin Trevino - on 05/12/23 Admission and Anticipated Discharge Date Admission Date: May 03, 2023 Subjective remains lethargic and sleepy today, was confused this AM per RN and her sister awakens and says a few words, can identify her sister, then goes back to sleep Physical Exam 2 Physical Exam: PHYSICAL EXAMINATION Last 24h vital signs reviewed, see documentation in flowsheet General: sleeping and I woke her up both times HEENT: Normocephalic, atraumatic, pupils round and equal, sclerae anicteric, no conjunctival injection, moist mucus membranes. Lungs: Normal respiratory effort. Clear to auscultation bilaterally. No RRW Heart: Regular rate and rhythm, no murmurs. No JVD Abdomen: Soft, nontender, nondistended. Bowel sounds present. Extremities: Warm, dry, well-perfused. 2+ extremity edema improved. bilateral chronic erythema improved. hemosiderosis and cobblestoning consistent with chronic venous stasis. Neuro: sleeping but woke up and spoke few words with me but went back to sleep, could name her sister, confused today, face symmetric, left hand and arm are weak which is her baseline Psych: normal affect and behavior Results & Data Results & Data Vital Signs (Past 12 Hours) Vital Signs Temp Pulse Resp BP Pulse Ox O2 Del Method 05/17/23 16:50 36.8 C 71 16 126/76 96 Room Air 05/17/23 08:30 Room Air 05/17/23 07:48 36.8 C 73 16 136/81 93 Room Air Laboratory Results 05/16/23 22:39 05/16/23 22:39 PG Care Time/CCT Total # of Minutes Spent Total Time Spent with Patient: Total time spent is greater than 50% in coordination of care (as documented) at patient's floor/unit and/or counseling patient: Coding Level of Care Code 86884 SUB INP/OBS CARE 3/50MIN Diagnoses Acute metabolic encephalopathy G93.41 UTI (urinary tract infection) due to Enterococcus N39.0; B95.2 Acute severe vertigo R42 Sepsis A41.9 Sepsis acute organ dysfunction status: unspecified Sepsis type: sepsis due to unspecified organism Cellulitis of right leg L03.115 History of DVT (deep vein thrombosis) Z86.718 Hypothyroidism E03.9 OBSTETRICS AND GYNECOLOGY PROFESSOR (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) shunt status Z98.2 Seizure disorder G40.909 Congestive heart failure I50.9 Hypokalemia E87.6 Hypomagnesemia E83.42 Normocytic anemia D64.9 GERD without esophagitis K21.9 Chronic anticoagulation Z79.01 Depression F32.A History of benign brain tumor Z86.011 Morbid obesity with BMI of 45.0-49.9, adult E66.01; Z68.42 Abnormal brain MRI R90.89 (4) Sepsis Sepsis acute organ dysfunction status: unspecified Sepsis type: sepsis due to unspecified organism Qualified Code(s): A41.9 - Sepsis, unspecified organism
[2023-05-17] MEDS ORDERED: SULFAMETHOXAZOLE/TRIMETHOPRIM DS 800/160MG TAB PO SCH (21:00)
[2023-05-18 07:59] LABS: Hematocrit (blood only) 31.7 % (37.0-47.0); Hemoglobin 9.4 g/dl (12.0-16.0); Mean Corpuscular Hemoglobin 23.7 pg (25.0-34.0); Mean Corpuscular Hgb Conc 29.7 g/dL (32.0-36.0); Mean Corpuscular Volume 79.8 fL (80.0-100.0); Mean Platelet Volume 10.8 fL (9.4-12.4); Platelet Count 270 K/uL (130-400); RDW Coefficient of Variation 22.4 % (11.5-14.5); RDW Standard Deviation 62.4 fL (36.4-46.3); Red Blood Count 3.97 M/uL (4.20-5.40); White Blood Count 4.91 K/ul (4.8-10.8)
[2023-05-18 08:25] LABS: BUN Creatinine Ratio 11.9 (10-20); Calcium 8.9 mg/dl (8.6-10.3); Creatinine Clr Calc Pharmacy 104.6 ml/min; Est GFR (African American) 115.5 ml/min; Est GFR (Non-African American) 99.7 ml/min; Potassium 4.3 mmol/L (3.5-5.1)
[2023-05-18] MEDS: FLUoxetine HCL 20 MG CAP PO SCH (09:09)
--- NOTE | 2023-05-18 14:46 | Hospitalist Progress Note ---
Date of Service May 18, 2023 Assessment & Plan (1) Acute metabolic encephalopathy: Plan: presented with such on day of admission presumed 2nd to sepsis/RLE cellulitis waxing/waning MS last week 05/07 - she was awake but unable to communicate normally; long pauses before responding, etc 05/08 - mentation MUCH improved from that point forward mentation has continued to improve each day head CT x 2 this admission neg for acute findings of note - we finally received CT head reports from [facility] as well as CT/MRI brain images via PACs spoke with radiology - they compared her outside/old CT head with the CTs this admission - largely unchanged MRI brain WITHOUT acute or chronic stroke most findings are chronic -- MRI here was compared to MRI brain done at [facility] 06/2022 (MRI images from 06/2022 are in PACS) 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 -- acute met encephalopathy from infection (suspected as main culprit); hospital delirium; subclinical seizures; TIA event; vs other EEG did not show seizure focus; continue vimpat BID Mentation at baseline 05/13-05/15 Very sleepy 05/16-05/17 and confused -ordered update labs with CBC, BMP, vbg to check for hypercarbia - reviewed and all unremarkable. Remain stable this am no leukocytosis, electrolytes and renal fxn normal -reviewed medlist only potentially sedating med is lacosamide - consider tapering this since she has done poorly the past year on AED (on keppra, tapered off and did well in interim, then on lacosamide because of vague spells concurrent with admission for acute encephalopathy and UTIs) -overnight oximetry eval for possible TERI - was normal / no desats -decreased prozac back to 20 mg though unlikely to be the culprit -repeat UA with mild pyuria, started on bactrim 05/17 pending culture -no other infectious s/sx on exam Was awake and acting normally overnight and this AM per staff, did not sleep all night and somnolent again when I rounded. day/night reversal seems to be an issue and there may also be behavioral/avoidance factors. Reports ongoing depression, will consult psychiatry (2) UTI (urinary tract infection) due to Enterococcus: Plan: most recent urine culture grew 20,000 CFU of VRE this was obtained via straight cath. associated UA was negative (except for blood and had menses at the time) -nonetheless treated with daptomycin 5/5 doses last dose 05/15 bactrim started 05/17, culture pending (3) Acute severe vertigo: Plan: 2 minute episode of spinning associated with double vision on 05/08/23. no tinnitus or hearing changes. no changes in neuro exam spontaneously resolved after the 2 minutes. central vs peripheral cause. repeat head CT on 05/[address] CTA head/neck - left JACKAROO stenosis otherwise both studies unremarkable. echo late fall 2022 was wnl. we finally received her records from [facility] in [place] where she had her shunt placed in 2006. we have the operative note from that SCHOOL CROSSING GUARD shunt placement. the SCHOOL CROSSING GUARD shunt is a non-programmable Delta device which is MRI compatible. thus, MRI w/ contrast was obtained. NO acute or chronic CVA seen but obviously numerous findings related to her prior brain tumor resection. Has not recurred if this was a TIA event she is already on Eliquis BID + aspirin 81mg daily. (4) Sepsis: Plan: 2nd RLE cellulitis - resolved blood cx's negative completed 7+ days of IV/PO abx (5) Cellulitis of right leg: Plan: resolved (6) History of DVT (deep vein thrombosis): Plan: Continue apixaban BID Has IVC filter, unknown when placed (7) Hypothyroidism: Plan: Continue levothyroxine TSH 2.3 (8) SCHOOL CROSSING GUARD (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) shunt status: Plan: placed in 03/2006 at [facility] records from that visit reviewed op note reviewed SCHOOL CROSSING GUARD shunt is a Delta non-programmable unit - MR compatible SCHOOL CROSSING GUARD shunt appears stable on CT and MRI (9) Seizure disorder: Plan: Continue lacosamide No seizures have been observed/reported per nursing EEG negative for seizure focus -consider tapering lacosamide as discussed above (10) Congestive heart failure: Plan: Chronic diastolic heart failure Echo 02/27 with normal EF much of her LE edema looks like lymphedema which does not respond well to diuretics wound benefit from compression stockings resumed lasix but changed to every other day. Edema is improved compared to at admission. BMP today Ordered weights -lasix held 05/17 because lethargic and poor po (11) Hypokalemia: Plan: Replaced Resolved (12) Hypomagnesemia: Plan: replaced resolved (13) Normocytic anemia: Plan: ferritin 58 transferrin low-normal, likely iron deficient s/p venofer 300mg IV x 3 doses this admission H/H low but stable FOBT was negative B12 level - mid 300s; started supplement is already on folate supplementation 1mg daily (14) GERD without esophagitis: Plan: cont PPI (15) Chronic anticoagulation: Plan: apixaban BID (16) Depression: Plan: initiated prozac 1 month ago by report, increased to 30 mg a week ago - -discussed with her sister, decreased back to 20 mg in case contributing to mental status changes but seems unlikely (17) History of benign brain tumor: Plan: left sided hemiplegia is presumably due to atrophy/encephalomalacia from her prior brain tumor resection (right sided thalamic astrocytoma per records) she also appears to have 2 meningiomas on her MRI brain -- 1. stable 1.7 cm left lateral calcified extra-axial lesion on image 16 series 8 which likely represents a meningioma. 2. probable meningioma of the falx cerebri anteriorly on image 15 measuring 8 mm. post-discharge she will need -- 1. neurology follow-up to follow seizure d/o, imaging, etc 2. neurosurgery where we refer her will depend on what town she is placed in - numerous referrals have been placed for various snfs in different locations (18) Morbid obesity with BMI of 45.0-49.9, adult: Plan: BMI 46 (19) Abnormal brain MRI: Plan: MRI shows thickening of the pachymeninges she does not have any h/o CSF leak or postural headaches the thickening of the pachymeninges is a nonspecific finding uncertain about the etiology of the above I discussed her case informally with [facility] they recommend repeat MRI brain w/ contrast in about 2 weeks to ensure stability of the pachymeninges finding (this will be around 05/24/23) Plan had been a resident of [facility] but family refuses her return to that facility. By report was living independently for years prior to going into [facility]. numerous referrals are pending for SNF placement. 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 When I saw her midmorning she was sleepy, said a few words, closed eyes again or was avoidant similar to past few days. RN reports last night she endorsed feeling depressed and isolated being in the hospital. Physical Exam 2 Physical Exam: PHYSICAL EXAMINATION Last 24h vital signs reviewed, see documentation in flowsheet General: sleeping and I woke her up HEENT: Normocephalic, atraumatic, pupils round and equal, sclerae anicteric, no conjunctival injection, moist mucus membranes. Lungs: Normal respiratory effort. Clear to auscultation bilaterally. No RRW Heart: Regular rate and rhythm, no murmurs. No JVD Abdomen: Soft, nontender, nondistended. Bowel sounds present. Extremities: Warm, dry, well-perfused. 2+ extremity edema improved. bilateral chronic erythema improved. hemosiderosis and cobblestoning consistent with chronic venous stasis. Neuro: sleeping but woke up and spoke few words went back to sleep vs behavioral, woke her up again, responses seemed appropriate, face symmetric, left hand and arm are weak which is her baseline Psych: depressed mood, avoidant behavior Results & Data Results & Data Vital Signs (Past 12 Hours) Vital Signs Temp Pulse Resp BP Pulse Ox O2 Del Method 05/18/23 08:30 Room Air 05/18/23 08:09 36.4 C L 65 16 126/73 93 Room Air Laboratory Results 05/18/23 07:50 05/18/23 07:42 PG Care Time/CCT Total # of Minutes Spent Total Time Spent with Patient: Total time spent is greater than 50% in coordination of care (as documented) at patient's floor/unit and/or counseling patient: Coding Level of Care Code 34322 SUB INP/OBS CARE 2/35MIN Diagnoses Acute metabolic encephalopathy G93.41 UTI (urinary tract infection) due to Enterococcus N39.0; B95.2 Acute severe vertigo R42 Sepsis A41.9 Sepsis acute organ dysfunction status: unspecified Sepsis type: sepsis due to unspecified organism Cellulitis of right leg L03.115 History of DVT (deep vein thrombosis) Z86.718 Hypothyroidism E03.9 SCHOOL CROSSING GUARD (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) shunt status Z98.2 Seizure disorder G40.909 Congestive heart failure I50.9 Hypokalemia E87.6 Hypomagnesemia E83.42 Normocytic anemia D64.9 GERD without esophagitis K21.9 Chronic anticoagulation Z79.01 Depression F32.A History of benign brain tumor Z86.011 Morbid obesity with BMI of 45.0-49.9, adult E66.01; Z68.42 Abnormal brain MRI R90.89 (4) Sepsis Sepsis acute organ dysfunction status: unspecified Sepsis type: sepsis due to unspecified organism Qualified Code(s): A41.9 - Sepsis, unspecified organism
--- NOTE | 2023-05-19 17:16 | Hospitalist Progress Note ---
Date of Service May 19, 2023 Assessment & Plan (1) Acute metabolic encephalopathy: Plan: presented with such on day of admission presumed 2nd to sepsis/RLE cellulitis waxing/waning mental status (vs excessive daytime somnolence and avoidance) 05/07 - she was awake but unable to communicate normally; long pauses before responding, etc 05/08 - mentation MUCH improved head CT x 2 this admission neg for acute findings of note - we finally received CT head reports from [facility] as well as CT/MRI brain images via PACs spoke with radiology - they compared her outside/old CT head with the CTs this admission - largely unchanged MRI brain WITHOUT acute or chronic stroke most findings are chronic -- MRI here was compared to MRI brain done at [facility] 06/2022 (MRI images from 06/2022 are in PACS) 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 -- acute met encephalopathy from infection (suspected as main culprit); hospital delirium; subclinical seizures; TIA event; vs other EEG did not show seizure focus; continue vimpat BID Mentation at baseline 05/13-05/15 Very sleepy 05/16-05/17 and confused -ordered update labs with CBC, BMP, vbg to check for hypercarbia - reviewed and all unremarkable. Remain stable this am no leukocytosis, electrolytes and renal fxn normal -reviewed medlist only potentially sedating med is lacosamide - consider tapering this since she has done poorly the past year on AED (on keppra, tapered off and did well in interim, then on lacosamide because of vague spells concurrent with admission for acute encephalopathy and UTIs) -overnight oximetry eval for possible TERI - was normal / no desats -decreased prozac back to 20 mg though unlikely to be the culprit -repeat UA with mild pyuria, started on bactrim and treated x 3 days - culture never resulted - this treatment did not seem to make any appreciable difference -no other infectious s/sx on exam Has been awake and acting normally overnight last two nights then somnolent during the day, day/night reversal seems to be an issue and there may also be behavioral/avoidance factors. Reports ongoing depression, will consult psychiatry -scheduled melatonin 3 mg HS (2) UTI (urinary tract infection) due to Enterococcus: Plan: most recent urine culture grew 20,000 CFU of VRE this was obtained via straight cath. associated UA was negative (except for blood and had menses at the time) -nonetheless treated with daptomycin 5/5 doses last dose 05/15 bactrim 05/17-05/19, culture was ordered but never resulted. I didn't see improvement with treating this. (3) Acute severe vertigo: Plan: 2 minute episode of spinning associated with double vision on 05/08/23. no tinnitus or hearing changes. no changes in neuro exam spontaneously resolved after the 2 minutes. central vs peripheral cause. repeat head CT on 05/[address] CTA head/neck - left [employer] stenosis otherwise both studies unremarkable. echo late fall 2022 was wnl. we finally received her records from [facility] in [place] where she had her shunt placed in 2006. we have the operative note from that DIALYSIS REGISTERED NURSE shunt placement. the DIALYSIS REGISTERED NURSE shunt is a non-programmable Delta device which is MRI compatible. thus, MRI w/ contrast was obtained. NO acute or chronic CVA seen but obviously numerous findings related to her prior brain tumor resection. Has not recurred if this was a TIA event she is already on Eliquis BID + aspirin 81mg daily. (4) Sepsis: Plan: 2nd RLE cellulitis - resolved blood cx's negative completed 7+ days of IV/PO abx (5) Cellulitis of right leg: Plan: resolved (6) History of DVT (deep vein thrombosis): Plan: Continue apixaban BID Has IVC filter, unknown when placed (7) Hypothyroidism: Plan: Continue levothyroxine TSH 2.3 (8) DIALYSIS REGISTERED NURSE (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) shunt status: Plan: placed in 03/2006 at [facility] records from that visit reviewed op note reviewed DIALYSIS REGISTERED NURSE shunt is a Delta non-programmable unit - MR compatible DIALYSIS REGISTERED NURSE shunt appears stable on CT and MRI (9) Seizure disorder: Plan: Continue lacosamide No seizures have been observed/reported per nursing EEG negative for seizure focus -consider tapering lacosamide as discussed above (10) Congestive heart failure: Plan: Chronic diastolic heart failure Echo 02/27 with normal EF much of her LE edema looks like lymphedema which does not respond well to diuretics wound benefit from compression stockings (11) Hypokalemia: Plan: Replaced Resolved (12) Hypomagnesemia: Plan: replaced resolved (13) Normocytic anemia: Plan: ferritin 58 transferrin low-normal, likely iron deficient s/p venofer 300mg IV x 3 doses this admission H/H low but stable FOBT was negative B12 level - mid 300s; started supplement is already on folate supplementation 1mg daily (14) GERD without esophagitis: Plan: cont PPI (15) Chronic anticoagulation: Plan: apixaban BID (16) Depression: Plan: initiated prozac 1 month ago by report, increased to 30 mg a week ago - -discussed with her sister, decreased back to 20 mg in case contributing to mental status changes but seems unlikely (17) History of benign brain tumor: Plan: left sided hemiplegia is presumably due to atrophy/encephalomalacia from her prior brain tumor resection (right sided thalamic astrocytoma per records) she also appears to have 2 meningiomas on her MRI brain -- 1. stable 1.7 cm left lateral calcified extra-axial lesion on image 16 series 8 which likely represents a meningioma. 2. probable meningioma of the falx cerebri anteriorly on image 15 measuring 8 mm. post-discharge she will need -- 1. neurology follow-up to follow seizure d/o, imaging, etc 2. neurosurgery where we refer her will depend on what town she is placed in - numerous referra ls have been placed for various snfs in different locations (18) Morbid obesity with BMI of 45.0-49.9, adult: Plan: BMI 46 (19) Abnormal brain MRI: Plan: MRI shows thickening of the pachymeninges she does not have any h/o CSF leak or postural headaches the thickening of the pachymeninges is a nonspecific finding uncertain about the etiology of the above I discussed her case informally with [facility] Neurology they recommend repeat MRI brain w/ contrast in about 2 weeks to ensure stability of the pachymeninges finding (this will be around 05/24/23) Plan had been a resident of [facility] but family refuses her return to that facility. By report was living independently for years prior to going into [facility]. numerous referrals are pending for SNF placement. updated her sister Selin Trevino extensively at bedside 05/17 Admission and Anticipated Discharge Date Admission Date: May 03, 2023 Subjective has been awake all night the last two nights and reportedly alert then sleeping all day woke her up and she could tell me a little bit about the super bowl but persistently going back to sleep again Physical Exam Physical Exam: PHYSICAL EXAMINATION Last 24h vital signs reviewed, see documentation in flowsheet General: sleeping and I woke her up - same as yesterday exam unchanged 05/19 HEENT: Normocephalic, atraumatic, pupils round and equal, sclerae anicteric, no conjunctival injection, moist mucus membranes. Lungs: Normal respiratory effort. Clear to auscultation bilaterally. No RRW Heart: Regular rate and rhythm, no murmurs. No JVD Abdomen: Soft, nontender, nondistended. Bowel sounds present. Extremities: Warm, dry, well-perfused. 2+ extremity edema improved. bilateral chronic erythema improved. hemosiderosis and cobblestoning consistent with chronic venous stasis. Neuro: same today: sleeping but woke up and spoke few words went back to sleep vs behavioral, woke her up again, responses seemed appropriate, face symmetric, left hand and arm are weak which is her baseline Psych: depressed mood, avoidant behavior Results & Data Results & Data Vital Signs (Past 12 Hours) Vital Signs Temp Pulse Resp BP Pulse Ox O2 Del Method 05/19/23 13:57 36.7 C 67 16 113/75 95 Room Air 05/19/23 08:40 Room Air 05/19/23 06:49 36.3 C L 67 18 138/74 95 Room Air PG Care Time/CCT Total # of Minutes Spent Total Time Spent with Patient: Total time spent is greater than 50% in coordination of care (as documented) at patient's floor/unit and/or counseling patient: Coding Level of Care Code 70900 SUB INP/OBS CARE 05/01MIN Diagnoses Acute metabolic encephalopathy G93.41 UTI (urinary tract infection) due to Enterococcus N39.0; B95.2 Acute severe vertigo R42 Sepsis A41.9 Sepsis acute organ dysfunction status: unspecified Sepsis type: sepsis due to unspecified organism Cellulitis of right leg L03.115 History of DVT (deep vein thrombosis) Z86.718 Hypothyroidism E03.9 DIALYSIS REGISTERED NURSE (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) shunt status Z98.2 Seizure disorder G40.909 Congestive heart failure I50.9 Hypokalemia E87.6 Hypomagnesemia E83.42 Normocytic anemia D64.9 GERD without esophagitis K21.9 Chronic anticoagulation Z79.01 Depression F32.A History of benign brain tumor Z86.011 Morbid obesity with BMI of 45.0-49.9, adult E66.01; Z68.42 Abnormal brain MRI R90.89 (4) Sepsis Sepsis acute organ dysfunction status: unspecified Sepsis type: sepsis due to unspecified organism Qualified Code(s): A41.9 - Sepsis, unspecified organism
[2023-05-19] MEDS: MELATONIN 3 MG TAB PO SCH (20:59)
--- NOTE | 2023-05-20 16:36 | Psychiatric Consultation ---
Date of Consultation May 20, 2023 Impression / Recommendations Impression 52 yo female with hx of brain tumor resection, reactive anxiety/depression over course of medical illness, currently with waxing and waning mental status consistent with hypoactive delirium that is slow to resolve. There is little difference between Prozac 20 mg and 30 mg and does not appear to be cause of her fluctuating MSE. Would err on side of lower dose if concerned about seizure activity. this is a limited/targeted consult for question specific to Prozac dosing and differential. (1) Acute metabolic encephalopathy: Plan see above Psych History Identifying Data 52 yo female with hx of benign brain tumor s/p resection with seizures, VTE, hypothyroidism, CHF, GERD w/o esophagitis, generalized weakness--in/out of various rehab facilities past year+, presented to ED on 05/03/23 with sepsis and encephalopathy. Chief Complaint "I'm ok, my speech is always like this and I still get confused." History of Present Illness Patient is a limited historian, little formal psych hx. has been taking Prozac up to 30 mg for ongoing anxiety/depressive symptoms related to general medical condition. Hospitalist service had some concern may be contributing to low energy some days and decreased dose. Notes reflect fluctuations in level of alertness throughout stay with diffuse slowing on EEG rather than overt seizure activity. Dose decreased Prozac 20 mg 05/[address] Muro. Liaison to obtain more history/collateral if able. Patient otherwise denies depression or specific concern. Case discussed briefly with Dr. Anaya who cannot exclude intermittent seizure activity as contributing factor. Allergies Allergy/AdvReac Type Severity Reaction Status Date / Time Penicillins Allergy Unknown CAN'T Verified 05/03/23 08:16 REMEMBER phenytoin [From Dilantin] AdvReac Intermediate REALLY BAD Verified 05/03/23 08:16 HEADACHE Home Medications Medication Instructions Recorded Confirmed Type acetaminophen 325 mg tablet 650 mg PO Q6H PRN PAIN/FEVER 02/26/23 05/03/23 History (Tylenol) apixaban 5 mg tablet (Eliquis) 5 mg PO BID 02/26/23 05/03/23 History folic acid 1 mg tablet 1 mg PO DAILY 02/26/23 05/03/23 History furosemide 40 mg tablet 40 mg PO DAILY 02/26/23 05/03/23 History lacosamide 100 mg tablet 100 mg PO Q12H 02/26/23 05/03/23 History levothyroxine 25 mcg tablet 25 mcg PO DAILY 02/26/23 05/03/23 History multivitamin 1 tab PO QAM 02/26/23 05/03/23 History oxybutynin chloride 15 mg 15 mg PO DAILY 02/26/23 05/03/23 History tablet,extended release 24 hr pantoprazole 40 mg tablet,delayed 40 mg PO DAILY 02/26/23 05/03/23 History release potassium chloride 10 mEq 20 meq PO DAILY 02/26/23 05/03/23 History capsule,extended release sennosides 8.6 mg tablet (Senokot) 17.2 mg PO HS 02/26/23 05/03/23 History aspirin 81 mg chewable tablet 81 mg PO DAILY 05/03/23 05/03/23 History bisacodyl 10 mg rectal suppository 10 mg [place] DAILY PRN Constipation 05/03/23 05/03/23 History (Dulcolax (bisacodyl)) doxycycline hyclate 100 mg tablet 100 mg PO BID 05/03/23 05/03/23 History fluoxetine 10 mg capsule 20 mg PO DAILY 05/03/23 05/03/23 History hydroxyzine HCl 25 mg tablet 25 mg PO Q6H PRN Itching 05/03/23 05/03/23 History lorazepam 2 mg/mL injection syringe 1 mg IM .[id number] PRN epilepsy 05/03/23 05/03/23 History magnesium hydroxide 400 mg/5 mL 2,400 mg PO DAILY PRN Constipation 05/03/23 05/03/23 History oral suspension (Milk of Magnesia) sodium phosphates 19 gram-7 118 ml [place] DAILY PRN Constipation 05/03/23 05/03/23 History gram/118 mL enema (Enema) Patient History Medical History History of DVT (deep vein thrombosis) GERD (gastroesophageal reflux disease) History of benign brain tumor Seizure disorder Congestive heart failure 02/27/23 Echo EF 55-60% technically limited study Hypothyroidism Surgical History HANDLE MAKER (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) shunt status Social History Smoking Status: Never smoker Second Hand Exposure: No; Do You Dip or Chew Tobacco: No; Hx Alcohol Use: No Hx Substance Use: No Preferred Language: [place] Citizen Communication Ability: Effective Processor Inspector Required: No Beliefs That Will Affect Care: None Current Living Situation: Rehab Feels Safe at Home: Yes Assistive Devices: Walker and Wheelchair Physical Exam Psychiatric: Orientation: alert Eye Contact: + poor eye contact Speech: + abnormal rate/rhythm/volume of speech mild dysarthria Affect: + blunted affect Mood: no depressed mood Thought Process: + concrete thought process Thought Content: reality based without delusions Suicidal Thoughts: denies suicidal thoughts Homicidal Thoughts: denies homicidal thoughts Hallucinations: no auditory hallucinations and no visual hallucinations Cognition: + attention not intact Vital Signs (Past 24 Hours): Last Vital Signs Temp 36.6 C 05/20/23 15:54 Pulse 73 05/20/23 15:54 Resp 18 05/20/23 15:54 BP 131/84 05/20/23 15:54 Pulse Ox 93 05/20/23 15:54 O2 Del Method Room Air 05/20/23 15:54 O2 Flow Rate 2 05/03/23 09:48 Review of Systems All systems reviewed & are unremarkable except as noted in HPI & below Results & Data (PSY) Medications Administered Acetaminophen (Acetaminophen 325 Mg Tab) 650 mg PO Q6H PRN PRN Reason: Pain or Fever Stop: 06/02/23 11:22 Last Admin: 05/13/23 12:57 Dose: 650 mg Documented By: Admin: 05/12/23 08:42 Dose: 650 mg Documented By: Admin: 05/11/23 12:05 Dose: 650 mg Documented By: Admin: 05/10/23 13:13 Dose: 650 mg Documented By: Admin: 05/08/23 16:28 Dose: 650 mg Documented By: Admin: 05/08/23 09:06 Dose: 650 mg Documented By: Admin: 05/05/23 20:39 Dose: 650 mg Documented By: Admin: 05/04/23 21:16 Dose: 650 mg Documented By: RENETTA Apixaban (Apixaban 5 Mg Tablet) 5 mg PO BID MARGARITA Stop: 06/02/23 20:59 Last Admin: 05/20/23 09:05 Dose: 5 mg Documented By: Admin: 05/19/23 20:59 Dose: 5 mg Documented By: Admin: 05/19/23 08:01 Dose: 5 mg Documented By: Admin: 05/18/23 20:55 Dose: 5 mg Documented By: Admin: 05/18/23 09:09 Dose: 5 mg Documented By: Admin: 05/17/23 20:31 Dose: 5 mg Documented By: Admin: 05/17/23 08:46 Dose: 5 mg Documented By: Admin: 05/16/23 20:33 Dose: 5 mg Documented By: MJNova Admin: 05/16/23 08:28 Dose: 5 mg Documented By: Admin: 05/15/23 21:38 Dose: 5 mg Documented By: Admin: 05/15/23 07:52 Dose: 5 mg Documented By: Admin: 05/14/23 22:03 Dose: 5 mg Documented By: Admin: 05/14/23 09:07 Dose: 5 mg Documented By: Admin: 05/13/23 22:42 Dose: 5 mg Documented By: Admin: 05/13/23 08:59 Dose: 5 mg Documented By: Admin: 05/12/23 21:01 Dose: 5 mg Documented By: Admin: 05/12/23 08:42 Dose: 5 mg Documented By: Admin: 05/11/23 20:24 Dose: 5 mg Documented By: Admin: 05/11/23 08:28 Dose: 5 mg Documented By: Admin: 05/10/23 21:00 Dose: 5 mg Documented By: Admin: 05/10/23 08:26 Dose: 5 mg Documented By: Admin: 05/09/23 21:07 Dose: 5 mg Documented By: Admin: 05/09/23 08:02 Dose: 5 mg Documented By: Admin: 05/08/23 20:24 Dose: 5 mg Documented By: Admin: 05/08/23 08:07 Dose: 5 mg Documented By: Admin: 05/07/23 21:40 Dose: 5 mg Documented By: Admin: 05/07/23 08:36 Dose: 5 mg Documented By: Admin: 05/06/23 20:03 Dose: 5 mg Documented By: Admin: 05/06/23 08:43 Dose: 5 mg Documented By: Admin: 05/05/23 20:39 Dose: 5 mg Documented By: DAGael Admin: 05/05/23 09:53 Dose: 5 mg Documented By: Admin: 05/04/23 21:18 Dose: 5 mg Documented By: Admin: 05/04/23 08:40 Dose: 5 mg Documented By: Admin: 05/03/23 21:59 Dose: 5 mg Documented By: RENETTA Aspirin (Aspirin 81 Mg Chew) 81 mg PO DAILY MARGARITA Stop: 06/03/23 08:59 Last Admin: 05/20/23 09:05 Dose: 81 mg Documented By: Admin: 05/19/23 08:01 Dose: 81 mg Documented By: Admin: 05/18/23 09:10 Dose: 81 mg Documented By: Admin: 05/17/23 08:49 Dose: 81 mg Documented By: Admin: 05/16/23 08:29 Dose: 81 mg Documented By: Admin: 05/15/23 07:51 Dose: 81 mg Documented By: Admin: 05/14/23 09:05 Dose: 81 mg Documented By: Admin: 05/13/23 08:58 Dose: 81 mg Documented By: Admin: 05/12/23 08:41 Dose: 81 mg Documented By: Admin: 05/11/23 08:28 Dose: 81 mg Documented By: Admin: 05/10/23 08:27 Dose: 81 mg Documented By: Admin: 05/09/23 08:01 Dose: 81 mg Documented By: Admin: 05/08/23 09:06 Dose: 81 mg Documented By: Admin: 05/07/23 08:40 Dose: 81 mg Documented By: Admin: 05/06/23 08:51 Dose: 81 mg Documented By: Admin: 05/05/23 10:23 Dose: 81 mg Documented By: Admin: 05/04/23 08:39 Dose: 81 mg Documented By: TERRY Cyanocobalamin (Cyanocobalamin (B-12) 500 Mcg Tablet) 1,000 mcg PO QAM MARGARITA Stop: 06/11/23 08:59 Last Admin: 05/20/23 09:05 Dose: 1,000 mcg Documented By: Admin: 05/19/23 08:02 Dose: 1,000 mcg Documented By: [facility] Admin: 05/18/23 09:09 Dose: 1,000 mcg Documented By: [facility] Admin: 05/17/23 08:49 Dose: 1,000 mcg Documented By: [facility] Admin: 05/16/23 08:29 Dose: 1,000 mcg Documented By: [facility] Admin: 05/15/23 07:52 Dose: 1,000 mcg Documented By: Admin: 05/14/23 09:06 Dose: 1,000 mcg Documented By: [facility] Admin: 05/13/23 08:58 Dose: 1,000 mcg Documented By: [facility] Admin: 05/12/23 08:42 Dose: 1,000 mcg Documented By: [facility] Fluoxetine HCl (Fluoxetine Hcl 20 Mg Cap) 20 mg PO DAILY MARGARITA Stop: 06/17/23 08:59 Last Admin: 05/20/23 09:05 Dose: 20 mg Documented By: [facility] Admin: 05/19/23 08:02 Dose: 20 mg Documented By: [facility] Admin: 05/18/23 09:09 Dose: 20 mg Documented By: [facility] Folic Acid (Folic Acid 1 Mg Tab) 1 mg PO DAILY MARGARITA Stop: 06/03/23 08:59 Last Admin: 05/20/23 09:05 Dose: 1 mg Documented By: [facility] Admin: 05/19/23 08:01 Dose: 1 mg Documented By: [facility] Admin: 05/18/23 09:10 Dose: 1 mg Documented By: [facility] Admin: 05/17/23 08:49 Dose: 1 mg Documented By: [facility] Admin: 05/16/23 08:28 Dose: 1 mg Documented By: [facility] Admin: 05/15/23 07:51 Dose: 1 mg Documented By: Admin: 05/14/23 09:06 Dose: 1 mg Documented By: [facility] Admin: 05/13/23 08:59 Dose: 1 mg Documented By: [facility] Admin: 05/12/23 08:42 Dose: 1 mg Documented By: Admin: 05/11/23 08:28 Dose: 1 mg Documented By: Admin: 05/10/23 08:27 Dose: 1 mg Documented By: Admin: 05/09/23 08:02 Dose: 1 mg Documented By: Admin: 05/08/23 08:07 Dose: 1 mg Documented By: Admin: 05/07/23 08:36 Dose: 1 mg Documented By: Admin: 05/06/23 08:43 Dose: 1 mg Documented By: Admin: 05/05/23 09:54 Dose: 1 mg Documented By: Admin: 05/04/23 08:40 Dose: 1 mg Documented By: TERRY Lacosamide (Lacosamide 50 Mg Tablet) 100 mg PO Q12H MARGARITA Stop: 06/02/23 20:59 Last Admin: 05/20/23 09:04 Dose: 100 mg Documented By: Admin: 05/19/23 21:15 Dose: 100 mg Documented By: Admin: 05/19/23 08:51 Dose: 100 mg Documented By: Admin: 05/18/23 20:55 Dose: 100 mg Documented By: Admin: 05/18/23 09:08 Dose: 100 mg Documented By: Admin: 05/17/23 20:31 Dose: 100 mg Documented By: Admin: 05/17/23 08:46 Dose: 100 mg Documented By: Admin: 05/16/23 20:33 Dose: 100 mg Documented By: Admin: 05/16/23 08:28 Dose: 100 mg Documented By: Admin: 05/15/23 21:48 Dose: 100 mg Documented By: Admin: 05/15/23 08:41 Dose: 100 mg Documented By: Admin: 05/14/23 22:03 Dose: 100 mg Documented By: Admin: 05/14/23 09:05 Dose: 100 mg Documented By: Admin: 05/13/23 22:42 Dose: 100 mg Documented By: Admin: 05/13/23 09:20 Dose: 100 mg Documented By: Admin: 05/12/23 21:01 Dose: 100 mg Documented By: Admin: 05/12/23 08:42 Dose: 100 mg Documented By: Admin: 05/11/23 20:24 Dose: 100 mg Documented By: Admin: 05/11/23 09:37 Dose: 100 mg Documented By: Admin: 05/10/23 21:00 Dose: 100 mg Documented By: Admin: 05/10/23 08:27 Dose: 100 mg Documented By: Admin: 05/09/23 21:06 Dose: 100 mg Documented By: Admin: 05/09/23 09:14 Dose: 100 mg Documented By: Admin: 05/08/23 20:50 Dose: 100 mg Documented By: Admin: 05/08/23 09:53 Dose: 100 mg Documented By: Admin: 05/07/23 21:40 Dose: 100 mg Documented By: Admin: 05/07/23 09:17 Dose: 100 mg Documented By: Admin: 05/06/23 20:38 Dose: 100 mg Documented By: Admin: 05/06/23 09:33 Dose: 100 mg Documented By: Admin: 05/05/23 20:40 Dose: 100 mg Documented By: Admin: 05/05/23 10:23 Dose: 100 mg Documented By: Admin: 05/04/23 21:17 Dose: 100 mg Documented By: Admin: 05/04/23 08:55 Dose: 100 mg Documented By: Admin: 05/03/23 21:59 Dose: 100 mg Documented By: RENETTA Levothyroxine Sodium (Levothyroxine Sodium 25 Mcg Tablet) 25 mcg PO DAILYBB [facility] Stop: 06/03/23 06:29 Last Admin: 05/20/23 06:02 Dose: 25 mcg Documented By: Admin: 05/19/23 06:19 Dose: 25 mcg Documented By: Admin: 05/18/23 06:19 Dose: 25 mcg Documented By: Admin: 05/17/23 06:20 Dose: 25 mcg Documented By: Admin: 05/16/23 05:58 Dose: 25 mcg Documented By: Admin: 05/15/23 06:07 Dose: 25 mcg Documented By: Admin: 05/14/23 05:46 Dose: 25 mcg Documented By: Admin: 05/13/23 05:55 Dose: 25 mcg Documented By: Admin: 05/12/23 06:28 Dose: 25 mcg Documented By: Admin: 05/11/23 06:11 Dose: 25 mcg Documented By: Admin: 05/10/23 05:48 Dose: 25 mcg Documented By: Admin: 05/09/23 05:52 Dose: 25 mcg Documented By: Admin: 05/08/23 05:33 Dose: 25 mcg Documented By: Admin: 05/07/23 06:18 Dose: 25 mcg Documented By: Admin: 05/06/23 05:29 Dose: 25 mcg Documented By: Admin: 05/05/23 05:58 Dose: 25 mcg Documented By: Admin: 05/04/23 06:09 Dose: 25 mcg Documented By: RENETTA Melatonin (Melatonin 3 Mg Tab) 3 mg PO HS MARGARITA Stop: 06/18/23 20:59 Last Admin: 05/19/23 20:59 Dose: 3 mg Documented By: EMBER Multivitamins (Multivitamin Tab) 1 tab PO QAM MARGARITA Stop: 06/03/23 08:59 Last Admin: 05/20/23 09:05 Dose: 1 tab Documented By: Admin: 05/19/23 08:01 Dose: 1 tab Documented By: Admin: 05/18/23 09:10 Dose: 1 tab Documented By: Admin: 05/17/23 08:49 Dose: 1 tab Documented By: Admin: 05/16/23 08:29 Dose: 1 tab Documented By: DMGael Admin: 05/15/23 07:51 Dose: 1 tab Documented By: Admin: 05/14/23 09:05 Dose: 1 tab Documented By: Admin: 05/13/23 08:59 Dose: 1 tab Documented By: Admin: 05/12/23 08:42 Dose: 1 tab Documented By: Admin: 05/11/23 08:28 Dose: 1 tab Documented By: Admin: 05/10/23 08:27 Dose: 1 tab Documented By: Admin: 05/09/23 08:02 Dose: 1 tab Documented By: Admin: 05/08/23 08:07 Dose: 1 tab Documented By: Admin: 05/07/23 08:36 Dose: 1 tab Documented By: Admin: 05/06/23 08:43 Dose: 1 tab Documented By: Admin: 05/05/23 09:54 Dose: 1 tab Documented By: Admin: 05/04/23 08:39 Dose: 1 tab Documented By: TERRY Pantoprazole Sodium (Pantoprazole 40 Mg Tab) 40 mg PO DAILY MARGARITA Stop: 06/03/23 08:59 Last Admin: 05/20/23 09:05 Dose: 40 mg Documented By: Admin: 05/19/23 08:01 Dose: 40 mg Documented By: Admin: 05/18/23 09:10 Dose: 40 mg Documented By: Admin: 05/17/23 08:48 Dose: 40 mg Documented By: Admin: 05/16/23 08:29 Dose: 40 mg Documented By: Admin: 05/15/23 07:52 Dose: 40 mg Documented By: Admin: 05/14/23 09:05 Dose: 40 mg Documented By: Admin: 05/13/23 08:58 Dose: 40 mg Documented By: Admin: 05/12/23 08:42 Dose: 40 mg Documented By: Admin: 05/11/23 08:28 Dose: 40 mg Documented By: Admin: 05/10/23 08:27 Dose: 40 mg Documented By: Admin: 05/09/23 08:02 Dose: 40 mg Documented By: Admin: 05/08/23 08:07 Dose: 40 mg Documented By: Admin: 05/06/23 08:43 Dose: 40 mg Documented By: Admin: 05/05/23 09:54 Dose: 40 mg Documented By: Admin: 05/04/23 08:39 Dose: 40 mg Documented By: TERRY Polyethylene Glycol (Polyethylene (Miralax) 17 Gm Pack) 17 gm PO BID MARGARITA Stop: 06/06/23 20:59 Last Admin: 05/20/23 09:06 Dose: Not Given Documented By: Admin: 05/19/23 20:59 Dose: Not Given Documented By: Admin: 05/19/23 08:02 Dose: Not Given Documented By: Admin: 05/18/23 20:56 Dose: Not Given Documented By: Admin: 05/18/23 09:10 Dose: Not Given Documented By: Admin: 05/17/23 20:31 Dose: Not Given Documented By: [facility] Admin: 05/17/23 08:49 Dose: Not Given Documented By: Admin: 05/16/23 20:33 Dose: Not Given Documented By: Admin: 05/16/23 08:29 Dose: 17 gm Documented By: Admin: 05/15/23 21:37 Dose: Not Given Documented By: RPMiguel Admin: 05/15/23 07:54 Dose: Not Given Documented By: Admin: 05/14/23 20:53 Dose: Not Given Documented By: Admin: 05/14/23 09:07 Dose: Not Given Documented By: Admin: 05/13/23 22:42 Dose: Not Given Documented By: Admin: 05/13/23 09:00 Dose: Not Given Documented By: Admin: 05/12/23 21:00 Dose: Not Given Documented By: Admin: 05/12/23 08:43 Dose: 17 gm Documented By: Admin: 05/11/23 19:36 Dose: Not Given Documented By: Admin: 05/11/23 08:28 Dose: 17 gm Documented By: Admin: 05/10/23 21:01 Dose: 17 gm Documented By: Admin: 05/10/23 08:27 Dose: 17 gm Documented By: Admin: 05/09/23 21:06 Dose: 17 gm Documented By: Admin: 05/09/23 08:02 Dose: 17 gm Documented By: Admin: 05/08/23 20:24 Dose: 17 gm Documented By: Admin: 05/08/23 08:07 Dose: 17 gm Documented By: Admin: 05/07/23 21:43 Dose: 17 gm Documented By: ELZA Potassium Chloride (Potassium Chloride Crtab 20 Meq Tabcr) 20 meq PO DAILY MARGARITA Stop: 06/03/23 08:59 Last Admin: 05/17/23 08:47 Dose: 20 meq Documented By: Admin: 05/16/23 09:08 Dose: 20 meq Documented By: Admin: 05/15/23 08:41 Dose: 20 meq Documented By: Admin: 05/14/23 09:05 Dose: 20 meq Documented By: Admin: 05/13/23 08:59 Dose: 20 meq Documented By: Admin: 05/12/23 08:42 Dose: 20 meq Documented By: Admin: 05/11/23 08:28 Dose: 20 meq Documented By: Admin: 05/10/23 08:26 Dose: 20 meq Documented By: Admin: 05/09/23 08:01 Dose: 20 meq Documented By: Admin: 05/08/23 09:06 Dose: 20 meq Documented By: Admin: 05/07/23 08:40 Dose: 20 meq Documented By: Admin: 05/06/23 08:53 Dose: 20 meq Documented By: Admin: 05/05/23 10:23 Dose: 20 meq Documented By: Admin: 05/04/23 08:40 Dose: 20 meq Documented By: TERRY Sennosides (Senna 8.6 Mg Tab) 17.2 mg PO HS MARGARITA Stop: 06/02/23 20:59 Last Admin: 05/19/23 20:59 Dose: 17.2 mg Documented By: Admin: 05/18/23 20:56 Dose: 17.2 mg Documented By: Admin: 05/17/23 20:31 Dose: 17.2 mg Documented By: Admin: 05/16/23 20:33 Dose: Not Given Documented By: Admin: 05/15/23 21:37 Dose: Not Given Documented By: RPMiguel Admin: 05/14/23 20:54 Dose: Not Given Documented By: Admin: 05/13/23 22:42 Dose: Not Given Documented By: Admin: 05/12/23 21:02 Dose: Not Given Documented By: Admin: 05/11/23 19:36 Dose: Not Given Documented By: Admin: 05/10/23 21:01 Dose: 17.2 mg Documented By: Admin: 05/09/23 21:07 Dose: 17.2 mg Documented By: Admin: 05/08/23 20:25 Dose: 17.2 mg Documented By: Admin: 05/07/23 21:40 Dose: 17.2 mg Documented By: Admin: 05/06/23 20:03 Dose: 17.2 mg Documented By: Admin: 05/05/23 20:39 Dose: 17.2 mg Documented By: Admin: 05/04/23 21:21 Dose: 17.2 mg Documented By: Admin: 05/03/23 22:00 Dose: 17.2 mg Documented By: DAGael Triamcinolone Acetonide (Triamcinolone Acet 0.1% Cr 15 Gm Tube) 1 appln EXT TID MARGARITA Stop: 06/10/23 08:59 Last Admin: 05/20/23 15:09 Dose: 1 appln Documented By: Admin: 05/20/23 09:06 Dose: 1 appln Documented By: Admin: 05/19/23 21:00 Dose: 1 appln Documented By: Admin: 05/19/23 13:20 Dose: 1 appln Documented By: Admin: 05/19/23 08:02 Dose: 1 appln Documented By: Admin: 05/18/23 20:57 Dose: 1 appln Documented By: Admin: 05/18/23 14:02 Dose: 1 appln Documented By: Admin: 05/18/23 09:10 Dose: 1 appln Documented By: Admin: 05/17/23 20:31 Dose: 1 appln Documented By: Admin: 05/17/23 15:10 Dose: 1 appln Documented By: Admin: 05/17/23 08:49 Dose: 1 appln Documented By: Admin: 05/16/23 20:33 Dose: 1 appln Documented By: Admin: 05/16/23 14:20 Dose: 1 appln Documented By: Admin: 05/16/23 09:16 Dose: 1 appln Documented By: Admin: 05/15/23 21:39 Dose: 1 appln Documented By: Admin: 05/15/23 15:59 Dose: Not Given Documented By: Admin: 05/15/23 15:58 Dose: 1 appln Documented By: Admin: 05/14/23 22:03 Dose: 1 appln Documented By: Admin: 05/14/23 13:28 Dose: 1 appln Documented By: Admin: 05/14/23 09:07 Dose: 1 appln Documented By: Admin: 05/13/23 22:41 Dose: 1 appln Documented By: Admin: 05/13/23 12:57 Dose: 1 appln Documented By: Admin: 05/13/23 08:59 Dose: 1 appln Documented By: Admin: 05/12/23 21:02 Dose: 1 appln Documented By: Admin: 05/12/23 12:43 Dose: 1 appln Documented By: Admin: 05/12/23 08:41 Dose: 1 appln Documented By: Admin: 05/11/23 20:25 Dose: 1 appln Documented By: Admin: 05/11/23 14:56 Dose: Not Given Documented By: Admin: 05/11/23 09:37 Dose: 1 appln Documented By: TERRY Coding Level of Care Code 20383 U Intl Hosp Care Lvl 1 Diagnoses Acute metabolic encephalopathy G93.41
--- NOTE | 2023-05-20 18:28 | Hospitalist Progress Note ---
Date of Service May 20, 2023 Assessment & Plan (1) Acute severe vertigo: Plan: had a 2 minute episode of spinning associated with double vision on 05/08/23. no tinnitus or hearing changes. spontaneously resolved after the 2 minutes. if this was a TIA event she is already on Eliquis BID + aspirin 81mg daily. repeat head CT on 05/[address] CTA head/neck - ??left JACQUARD FIXER stenosis otherwise both studies unremarkable. echo late fall 2022 was wnl. MRI brain was obtained after records from [facility] in [place] arrived. She had her shunt placed there in 2006. MEDICAL ESTHETICIAN shunt is a non-programmable Delta device which is MRI compatible. NO acute or chronic CVA seen but obviously numerous findings related to her prior brain tumor resection. was this a TIA event? if yes - cont asa, Eliquis (2) Sepsis: Plan: present on admission 2nd RLE cellulitis - resolved blood cx's negative completed 7+ days of IV/PO abx (3) Cellulitis of right leg: Plan: resolved (4) Acute metabolic encephalopathy: Plan: presented with such on day of admission presumed 2nd to sepsis/RLE cellulitis confusion resolved since the early portion of the admission has intermittently had lethargy/sleepiness and confusion most days, however, she is awake/alert/mentating/talkative cause of her intermittent lethargy is uncertain head CT x 2 this admission neg for acute findings of note - we finally received CT head reports from [facility] as well as CT/MRI brain images via PACs spoke with radiology - they compared her outside/old CT head with the CTs this admission - largely unchanged MRI brain WITHOUT acute or chronic stroke most findings are chronic -- MRI here was compared to MRI brain done at [facility] 06/2022 (MRI images from 06/2022 are in PACS) 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 -- acute met encephalopathy from infection (suspected as main culprit); hospital delirium; subclinical seizures; TIA event; vs other EEG did not show seizure focus ; [id number] continue vimpat BID cont to monitor carefully (5) History of DVT (deep vein thrombosis): Plan: Continue apixaban BID Has IVC filter, unknown when placed (6) Hypothyroidism: Plan: Continue levothyroxine TSH 2.3 (7) MEDICAL ESTHETICIAN (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) shunt status: Plan: placed in 03/2006 at [facility] records from that visit reviewed op note reviewed MEDICAL ESTHETICIAN shunt is a Delta non-programmable unit - MR compatible MEDICAL ESTHETICIAN shunt appears stable on CT and MRI (8) Seizure disorder: Plan: Continue lacosamide No seizures have been observed/reported per nursing EEG negative for seizure focus but this does not rule out seizures 100% Can't rule out subclinical seizures contributing to periods of confusion/altered MS (9) Congestive heart failure: Plan: Chronic diastolic heart failure Echo 02/27 with normal EF much of her LE edema looks like lymphedema which does not respond well to diuretics wound benefit from compression stockings lasix has been on hold; edema has not changed since the last time I saw her 1+ weeks ago (10) Hypokalemia: Plan: Replaced Resolved (11) Hypomagnesemia: Plan: replaced resolved (12) Normocytic anemia: Plan: ferritin 58 transferrin low-normal suspect she is Fe deficient s/p venofer 300mg IV x 3 doses this admission H/H low but stable -- plan to repeat CBC tomorrow for stability etiology of low Fe?? GI blood loss in face of chronic Eliquis use? fecal occult neg x 2 (03/29, 05/31) B12 level - mid 300s; will supplement is already on folate supplementation 1mg daily (13) GERD without esophagitis: Plan: cont PPI (14) Chronic anticoagulation: Plan: apixaban BID (15) Depression: Plan: cont prozac 20mg daily (16) History of benign brain tumor: Plan: left sided hemiplegia is presumably due to atrophy/encephalomalacia from her prior brain tumor resection (right sided thalamic astrocytoma per records) she also appears to have 2 meningiomas on her MRI brain -- 1. stable 1.7 cm left lateral calcified extra-axial lesion on image 16 series 8 which likely represents a meningioma. 2. probable meningioma of the falx cerebri anteriorly on image 15 measuring 8 mm. post-discharge she will need -- 1. neurology follow-up to follow seizure d/o, imaging, etc 2. neurosurgery where we refer her will depend on what town she is placed in - numerous referrals have been placed for various snfs in different locations (17) Morbid obesity with BMI of 45.0-49.9, adult: Plan: BMI 48 (18) Abnormal brain MRI: Plan: MRI shows thickening of the pachymeninges she does not have any h/o CSF leak or postural headaches the thickening of the pachymeninges is a nonspecific finding uncertain about the etiology of the above I discussed her case informally with [facility] [place] [place] [facility] they recommend repeat MRI brain w/ contrast in about 2 weeks to ensure stability of the pachymeninges finding will need MRI this week (19) UTI (urinary tract infection) due to Enterococcus: Plan: VRE s/p daptomycin x 7 days now off abx Plan had been a resident of [facility] but family refuses her return to that facility. By report was living independently for years prior to going into [facility]. numerous referrals are pending for SNF placement. Admission and Anticipated Discharge Date Admission Date: May 03, 2023 Subjective no events overnight remains very selective with what she will eat during the visit her meal-tray arrived and she said "I can't eat this" (potatoes, etc) denied pain any location denied any new complaints per staff no issues Review of Systems Review of Systems: cv - no chest pain pulm - no dyspnea GI - no abd pain; had BM today Physical Exam Physical Exam: gen - obese, NAD; looks well; watching TV mouth - MMM neck - no JVD heart - RRR, s1 s2, no murmur lungs - CTA b/l abd - soft NT ND BS+ ext - 1+ edema/lymphedema b/l, pulses 2+ b/l neuro - hemiplegia LUE/LLE; speech clear/fluent skin - stasis changes b/l shins; no cellulitis of either ball psych - awake, alert Results & Data Results & Data Vital Signs (Past 12 Hours) Vital Signs Temp Pulse Resp BP Pulse Ox O2 Del Method 05/20/23 15:54 36.6 C 73 18 131/84 93 Room Air 05/20/23 09:30 Room Air 05/20/23 07:33 36.7 C 72 16 131/80 94 Room Air PG Care Time/CCT Total # of Minutes Spent Total Time Spent with Patient: Total time spent is greater than 50% in coordination of care (as documented) at patient's floor/unit and/or counseling patient: Coding Level of Care Code 86244 SUB INP/OBS CARE 1/25MIN Diagnoses Acute severe vertigo R42 Sepsis A41.9 Sepsis acute organ dysfunction status: unspecified Sepsis type: sepsis due to unspecified organism Cellulitis of right leg L03.115 Acute metabolic encephalopathy G93.41 History of DVT (deep vein thrombosis) Z86.718 Hypothyroidism E03.9 MEDICAL ESTHETICIAN (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) shunt status Z98.2 Seizure disorder G40.909 Congestive heart failure I50.9 Hypokalemia E87.6 Hypomagnesemia E83.42 Normocytic anemia D64.9 GERD without esophagitis K21.9 Chronic anticoagulation Z79.01 Depression F32.A History of benign brain tumor Z86.011 Morbid obesity with BMI of 45.0-49.9, adult E66.01; Z68.42 Abnormal brain MRI R90.89 UTI (urinary tract infection) due to Enterococcus N39.0; B95.2 (2) Sepsis Sepsis acute organ dysfunction status: unspecified Sepsis type: sepsis due to unspecified organism Qualified Code(s): A41.9 - Sepsis, unspecified organism
--- NOTE | 2023-05-21 21:22 | Hospitalist Progress Note ---
Date of Service May 21, 2023 Assessment & Plan (1) Sepsis: Plan: present on admission 2nd RLE cellulitis - resolved blood cx's negative completed 7+ days of IV/PO abx she is off all abx therapy (2) Cellulitis of right leg: Plan: resolved has chronic lymphedema - would benefit from compression will ask wound if they would provide one layer tubigrip stockings has good pulses on examination (3) Acute metabolic encephalopathy: Plan: presented with such on day of admission presumed 2nd to sepsis/RLE cellulitis confusion resolved since the early portion of the admission has intermittently had lethargy/sleepiness and confusion most days, however, she is awake/alert/mentating/talkative cause of her intermittent lethargy is uncertain head CT x 2 this admission neg for acute findings of note - we finally received CT head reports from [facility] as well as CT/MRI brain images via PACs spoke with radiology - they compared her outside/old CT head with the CTs this admission - largely unchanged MRI brain WITHOUT acute or chronic stroke most findings are chronic -- MRI here was compared to MRI brain done at [facility] 06/2022 (MRI images from 06/2022 are in PACS) 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 -- acute met encephalopathy from infection (suspected as main culprit); hospital delirium; subclinical seizures; TIA event; vs other EEG did not show seizure focus ; [id number] continue vimpat BID cont to monitor carefully (4) History of DVT (deep vein thrombosis): Plan: Continue apixaban BID Has IVC filter, unknown when placed (5) Hypothyroidism: Plan: Continue levothyroxine TSH 2.3 (6) 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 (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) shunt status: Plan: placed in 03/2006 at [facility] records from that visit reviewed op note reviewed 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 shunt is a Delta non-programmable unit - MR compatible 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 shunt appears stable on CT and MRI (7) Seizure disorder: Plan: Continue lacosamide No seizures have been observed/reported per nursing EEG negative for seizure focus but this does not rule out seizures 100% Can't rule out subclinical seizures contributing to periods of confusion/altered MS (8) Congestive heart failure: Plan: Chronic diastolic heart failure Echo 02/27 with normal EF much of her LE edema looks like lymphedema which does not respond well to diuretics wound benefit from compression stockings -- tubigrips?? lasix has been on hold; edema has not changed since the last time I saw her 1+ weeks ago (9) Hypokalemia: Plan: Replaced Resolved (10) Hypomagnesemia: Plan: replaced resolved (11) Normocytic anemia: Plan: ferritin 58 transferrin low-normal suspect she is Fe deficient s/p venofer 300mg IV x 3 doses this admission H/H low but stable -- plan to repeat CBC tomorrow for stability etiology of low Fe?? GI blood loss in face of chronic Eliquis use? fecal occult neg x 2 (03/29, 05/31) B12 level - mid 300s; will supplement is already on folate supplementation 1mg daily will recheck CBC and Fe studies in am (12) GERD without esophagitis: Plan: cont PPI (13) Chronic anticoagulation: Plan: apixaban BID (14) Depression: Plan: cont prozac 20mg daily (15) History of benign brain tumor: Plan: left sided hemiplegia is presumably due to atrophy/encephalomalacia from her prior brain tumor resection (right sided thalamic astrocytoma per records) she also appears to have 2 meningiomas on her MRI brain -- 1. stable 1.7 cm left lateral calcified extra-axial lesion on image 16 series 8 which likely represents a meningioma. 2. probable meningioma of the falx cerebri anteriorly on image 15 measuring 8 mm. post-discharge she will need -- 1. neurology follow-up to follow seizure d/o, imaging, etc 2. neurosurgery where we refer her will depend on what town she is placed in - numerous referrals have been placed for various snfs in different locations (16) Morbid obesity with BMI of 45.0-49.9, adult: Plan: BMI 48 (17) Abnormal brain MRI: Plan: MRI shows thickening of the pachymeninges she does not have any h/o CSF leak or postural headaches the thickening of the pachymeninges is a nonspecific finding uncertain about the etiology of the above I discussed her case informally with [facility] they recommend repeat MRI brain w/ contrast in about 2 weeks to ensure stability of the pachymeninges finding will need MRI this week will order about 05/24 (18) UTI (urinary tract infection) due to Enterococcus: Plan: VRE s/p daptomycin x 7 days now off abx (19) Acute severe vertigo: Plan: had a 2 minute episode of spinning associated with double vision on 05/08/23. no tinnitus or hearing changes. spontaneously resolved after the 2 minutes. if this was a TIA event she is already on Eliquis BID + aspirin 81mg daily. repeat head CT on 05/[address] CTA head/neck - ??left PETROLEUM GEOLOGIST stenosis otherwise both studies unremarkable. echo late fall 2022 was wnl. MRI brain was obtained after records from [facility] in [place] arrived. She had her shunt placed there in 2006. 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 shunt is a non-programmable Delta device which is MRI compatible. NO acute or chronic CVA seen but obviously numerous findings related to her prior brain tumor resection. was this a TIA event? if yes - cont asa, Andrea Skinner had been a resident of [facility] but family refuses her return to that facility. By report was living independently for years prior to going into [facility]. numerous referrals are pending for SNF placement. Admission and Anticipated Discharge Date Admission Date: May 03, 2023 Subjective no overnight events eating fair -- doesn't eat all 3 meals served +stools was not out of bed today denies any new complaints Review of Systems Review of Systems: cv - no chest pain pulm - no dyspnea GI - no pain or N/V Physical Exam Physical Exam: gen - obese, NAD; laying in bed comfortably mouth - MMM neck - no JVD heart - RRR, s1 s2, no murmur lungs - CTA b/l; decreased BS bases abd - soft NT ND BS+ ext - 1+ edema/lymphedema b/l, pulses 2+ b/l neuro - hemiplegia LUE/LLE; speech clear/fluent skin - stasis changes b/l shins unchanged psych - awake, alert, oriented Results & Data Results & Data Vital Signs (Past 12 Hours) Vital Signs Temp Pulse Resp BP Pulse Ox O2 Del Method 05/21/23 14:39 36.6 C 75 16 121/78 97 Room Air 05/21/23 09:26 Room Air PG Care Time/CCT Total # of Minutes Spent Total Time Spent with Patient: Total time spent is greater than 50% in coordination of care (as documented) at patient's floor/unit and/or counseling patient: Coding Level of Care Code 98522 SUB INP/OBS CARE 05/01MIN Diagnoses Sepsis A41.9 Sepsis acute organ dysfunction status: unspecified Sepsis type: sepsis due to unspecified organism Cellulitis of right leg L03.115 Acute metabolic encephalopathy G93.41 History of DVT (deep vein thrombosis) Z86.718 Hypothyroidism E03.9 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 (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) shunt status Z98.2 Seizure disorder G40.909 Congestive heart failure I50.9 Hypokalemia E87.6 Hypomagnesemia E83.42 Normocytic anemia D64.9 GERD without esophagitis K21.9 Chronic anticoagulation Z79.01 Depression F32.A History of benign brain tumor Z86.011 Morbid obesity with BMI of 45.0-49.9, adult E66.01; Z68.42 Abnormal brain MRI R90.89 UTI (urinary tract infection) due to Enterococcus N39.0; B95.2 Acute severe vertigo R42 (1) Sepsis Sepsis acute organ dysfunction status: unspecified Sepsis type: sepsis due to unspecified organism Qualified Code(s): A41.9 - Sepsis, unspecified organism
[2023-05-22 07:25] LABS: Hematocrit (blood only) 32.2 % (37.0-47.0); Hemoglobin 9.4 g/dl (12.0-16.0); Mean Corpuscular Hemoglobin 23.9 pg (25.0-34.0); Mean Corpuscular Hgb Conc 29.2 g/dL (32.0-36.0); Mean Corpuscular Volume 81.7 fL (80.0-100.0); Mean Platelet Volume 11.2 fL (9.4-12.4); Platelet Count 262 K/uL (130-400); RDW Coefficient of Variation 23.3 % (11.5-14.5); Red Blood Count 3.94 M/uL (4.20-5.40); White Blood Count 4.35 K/ul (4.8-10.8)
[2023-05-22 07:53] LABS: BUN Creatinine Ratio 14.5 (10-20); Calcium 8.7 mg/dl (8.6-10.3); Creatinine Clr Calc Pharmacy 113.2 ml/min; Est GFR (African American) 118.5 ml/min; Est GFR (Non-African American) 102.2 ml/min
[2023-05-22 08:10] LABS: Ferritin 91.8 ng/ml (8-388)
[2023-05-22] MEDS: IRON SUCROSE 300 MG in SODIUM CHLORIDE 0.9% 250 ML IV ONE (13:50)
--- NOTE | 2023-05-22 20:26 | Hospitalist Progress Note ---
Date of Service May 22, 2023 Assessment & Plan (1) Sepsis: Plan: present on admission 2nd RLE cellulitis - resolved blood cx's negative completed 7+ days of IV/PO abx she is off all abx therapy (2) Cellulitis of right leg: Plan: resolved has chronic lymphedema - would benefit from compression I asked wound care to place one-layer knee-high tubigrip stockings has good pulses on examination appreciate wound care assistance (3) Acute metabolic encephalopathy: Plan: presented with such on day of admission presumed 2nd to sepsis/RLE cellulitis confusion resolved since the early portion of the admission has intermittently had lethargy/sleepiness and confusion most days, however, she is awake/alert/mentating/talkative cause of her intermittent lethargy is uncertain head CT x 2 this admission neg for acute findings of note - we finally received CT head reports from [facility] as well as CT/MRI brain images via PACs spoke with radiology - they compared her outside/old CT head with the CTs this admission - largely unchanged MRI brain WITHOUT acute or chronic stroke most findings are chronic -- MRI here was compared to MRI brain done at [facility] 06/2022 (MRI images from 06/2022 are in PACS) 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 -- acute met encephalopathy from infection (suspected as main culprit); hospital delirium; subclinical seizures; TIA event; vs other EEG did not show seizure focus ; [id number] continue vimpat BID cont to monitor carefully (4) History of DVT (deep vein thrombosis): Plan: Continue apixaban BID Has IVC filter in place (5) Hypothyroidism: Plan: Continue levothyroxine TSH 2.3 (6) 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 (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) shunt status: Plan: placed in 03/2006 at [facility] records from that visit reviewed op note reviewed 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 shunt is a Delta non-programmable unit - MR compatible 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 shunt appears stable on CT and MRI (7) Seizure disorder: Plan: Continue lacosamide No seizures have been observed/reported per nursing EEG negative for seizure focus However - can't rule out subclinical seizures contributing to periods of confusion/altered MS (8) Congestive heart failure: Plan: Chronic diastolic heart failure Echo 02/27 with normal EF much of her LE edema looks like lymphedema which does not respond well to diuretics wound benefit from compression stockings -- tubigrips placed (9) Hypokalemia: Plan: Replaced Resolved (10) Hypomagnesemia: Plan: replaced resolved (11) Normocytic anemia: Plan: ferritin 58 transferrin low-normal suspect she is Fe deficient s/p venofer 300mg IV x 3 doses earlier this admission etiology of low Fe?? fecal occult neg x 2 (03/29, 05/31) could be dietary - eats very poorly, skips meals, does not eat nutritious meals, etc B12 level - mid 300s; will supplement is already on folate supplementation 1mg daily H/H stable today Fe studies noted - transferrin sat only 16% will give 1 more dose of venofer today (300mg) (12) GERD without esophagitis: Plan: cont PPI (13) Chronic anticoagulation: Plan: apixaban BID (14) Depression: Plan: cont prozac 20mg daily (15) History of benign brain tumor: Plan: left sided hemiplegia is presumably due to atrophy/encephalomalacia from her prior brain tumor resection (right sided thalamic astrocytoma per records) she also appears to have 2 meningiomas on her MRI brain -- 1. stable 1.7 cm left lateral calcified extra-axial lesion on image 16 series 8 which likely represents a meningioma. 2. probable meningioma of the falx cerebri anteriorly on image 15 measuring 8 mm. post-discharge she will need -- 1. neurology follow-up to follow seizure d/o, imaging, etc 2. neurosurgery where we refer her will depend on what town she is placed in - numerous referrals have been placed for various snfs in different locations (16) Morbid obesity with BMI of 45.0-49.9, adult: Plan: BMI 48 (17) Abnormal brain MRI: Plan: MRI shows thickening of the pachymeninges she does not have any h/o CSF leak or postural headaches the thickening of the pachymeninges is a nonspecific finding uncertain about the etiology of the above I discussed her case informally with [facility] they recommend repeat MRI brain w/ contrast in about 2 weeks to ensure stability of the pachymeninges finding will need MRI this week will order about 05/24 (18) UTI (urinary tract infection) due to Enterococcus: Plan: VRE s/p daptomycin x 7 days now off abx (19) Acute severe vertigo: Plan: had a 2 minute episode of spinning associated with double vision on 05/08/23. no tinnitus or hearing changes. spontaneously resolved after the 2 minutes. if this was a TIA event she is already on Eliquis BID + aspirin 81mg daily. repeat head CT on 05/[address] CTA head/neck - ??left CAMPAIGN COORDINATOR stenosis otherwise both studies unremarkable. echo late fall 2022 was wnl. MRI brain was obtained after records from [facility] in [place] arrived. She had her shunt placed there in 2006. 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 shunt is a non-programmable Delta device which is MRI compatible. NO acute or chronic CVA seen but obviously numerous findings related to her prior brain tumor resection. was this a TIA event? if yes - cont asa, Andrea Skinner had been a resident of [facility] but family asks that she not return to that facility. By report was living independently for years prior to going into [facility]. numerous referrals are pending for SNF placement but most places do not have beds at the present time. Admission and Anticipated Discharge Date Admission Date: May 03, 2023 Subjective pt sleeping upon arrival easily awoke no new complaints she asked to go back to bed eating fair - nursing flowsheets show 100% of breakfast, but didn't eat lunch Review of Systems Review of Systems: cv - no chest pain pulm - no dyspnea GI - no abd pain/nausea/emesis Physical Exam Physical Exam: gen - obese, NAD; laying in bed comfortably; initially sleeping but easily awoke mouth - MMM neck - no obvious JVD heart - RRR, s1 s2, no murmur; heart tones distant lungs - CTA b/l; decreased BS bases abd - soft NT ND BS+ ext - 1+ edema/lymphedema b/l, pulses 2+ b/l neuro - hemiplegia LUE/LLE with contracture of LUE; speech clear/fluent skin - stasis changes b/l shins unchanged ; no cellulitis psych - awake, alert Results & Data Results & Data Vital Signs (Past 12 Hours) Vital Signs Temp Pulse Resp BP BP Pulse Ox O2 Del Method 05/22/23 18:10 36.6 C 62 134/82 95 Room Air 05/22/23 14:25 36.9 C 74 16 116/76 93 Room Air 05/22/23 09:10 Room Air Laboratory Results Laboratory Results - last 24 hr 05/22/23 06:32 WBC 4.35 L RBC 3.94 L Hgb 9.4 L Hct 32.2 L MCV 81.7 MCH 23.9 L MCHC 29.2 L RDW Std Deviation 67.0 H RDW Coeff of Neo 23.3 H Plt Count 262 MPV 11.2 Sodium 140 Potassium 4.0 Chloride 104 Carbon Dioxide 29 Anion Gap 7 BUN 9 Creatinine 0.62 Est Cr Clr Drug Dosing 113.2 Est GFR ( Amer) 118.5 Est GFR (Non-Af Amer) 102.2 BUN/Creatinine Ratio 14.5 Glucose 88 Calcium 8.7 Iron 43 TIBC 277 Unsaturated IBC 234 Transferrin % Sat 16 Ferritin 91.8 PG Care Time/CCT Total # of Minutes Spent Total Time Spent with Patient: Total time spent is greater than 50% in coordination of care (as documented) at patient's floor/unit and/or counseling patient: Coding Level of Care Code 41396 SUB INP/OBS CARE 05/01MIN Diagnoses Sepsis A41.9 Sepsis acute organ dysfunction status: unspecified Sepsis type: sepsis due to unspecified organism Cellulitis of right leg L03.115 Acute metabolic encephalopathy G93.41 History of DVT (deep vein thrombosis) Z86.718 Hypothyroidism E03.9 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 (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) shunt status Z98.2 Seizure disorder G40.909 Congestive heart failure I50.9 Hypokalemia E87.6 Hypomagnesemia E83.42 Normocytic anemia D64.9 GERD without esophagitis K21.9 Chronic anticoagulation Z79.01 Depression F32.A History of benign brain tumor Z86.011 Morbid obesity with BMI of 45.0-49.9, adult E66.01; Z68.42 Abnormal brain MRI R90.89 UTI (urinary tract infection) due to Enterococcus N39.0; B95.2 Acute severe vertigo R42 (1) Sepsis Sepsis acute organ dysfunction status: unspecified Sepsis type: sepsis due to unspecified organism Qualified Code(s): A41.9 - Sepsis, unspecified organism
--- NOTE | 2023-05-23 20:34 | Hospitalist Progress Note ---
Date of Service May 23, 2023 Assessment & Plan (1) Sepsis: Plan: present on admission 2nd RLE cellulitis - resolved blood cx's negative completed 7+ days of IV/PO abx she is off all abx therapy (2) Cellulitis of right leg: Plan: resolved has chronic lymphedema - would benefit from compression I asked wound care to place one-layer knee-high tubigrip stockings has good pulses on examination appreciate wound care assistance (3) Acute metabolic encephalopathy: Plan: presented with such on day of admission presumed 2nd to sepsis/RLE cellulitis confusion resolved since the early portion of the admission has intermittently had lethargy/sleepiness and confusion most days, however, she is awake/alert/mentating/talkative cause of her intermittent lethargy is uncertain head CT x 2 this admission neg for acute findings of note - we finally received CT head reports from [facility] as well as CT/MRI brain images via PACs spoke with radiology - they compared her outside/old CT head with the CTs this admission - largely unchanged MRI brain WITHOUT acute or chronic stroke most findings are chronic -- MRI here was compared to MRI brain done at [facility] 06/2022 (MRI images from 06/2022 are in PACS) 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 -- acute met encephalopathy from infection (suspected as main culprit); hospital delirium; subclinical seizures; TIA event; vs other EEG did not show seizure focus ; [id number] continue vimpat BID cont to monitor carefully (4) History of DVT (deep vein thrombosis): Plan: Continue apixaban BID Has IVC filter in place (5) Hypothyroidism: Plan: Continue levothyroxine TSH 2.3 (6) BRAND MARKETING COORDINATOR (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) shunt status: Plan: placed in 03/2006 at [facility] records from that visit reviewed op note reviewed BRAND MARKETING COORDINATOR shunt is a Delta non-programmable unit - MR compatible BRAND MARKETING COORDINATOR shunt appears stable on CT and MRI (7) Seizure disorder: Plan: Continue lacosamide No seizures have been observed/reported per nursing EEG negative for seizure focus However - can't rule out subclinical seizures contributing to periods of confusion/altered MS (8) Congestive heart failure: Plan: Chronic diastolic heart failure Echo 02/27 with normal EF much of her LE edema looks like lymphedema which does not respond well to diuretics she is dyspneic today with wheezes could be mild decompensated CHF will give 20mg of IV lasix and re-eval in am (9) Hypokalemia: Plan: Replaced Resolved (10) Hypomagnesemia: Plan: replaced resolved (11) Normocytic anemia: Plan: ferritin 58 transferrin low-normal suspect she is Fe deficient s/p venofer 300mg IV x 3 doses earlier this admission etiology of low Fe?? fecal occult neg x 2 (03/29, 05/31) could be dietary - eats very poorly, skips meals, does not eat nutritious meals, etc B12 level - mid 300s; will supplement is already on folate supplementation 1mg daily H/H stable today Fe studies noted - transferrin sat only 16% s/p another dose of venofer on 05/22 (12) GERD without esophagitis: Plan: cont PPI (13) Chronic anticoagulation: Plan: apixaban BID (14) Depression: Plan: cont prozac 20mg daily (15) History of benign brain tumor: Plan: left sided hemiplegia is presumably due to atrophy/encephalomalacia from her prior brain tumor resection (right sided thalamic astrocytoma per records) she also appears to have 2 meningiomas on her MRI brain -- 1. stable 1.7 cm left lateral calcified extra-axial lesion on image 16 series 8 which likely represents a meningioma. 2. probable meningioma of the falx cerebri anteriorly on image 15 measuring 8 mm. post-discharge she will need -- 1. neurology follow-up to follow seizure d/o, imaging, etc 2. neurosurgery where we refer her will depend on what town she is placed in - numerous referrals have been placed for various snfs in different locations (16) Morbid obesity with BMI of 45.0-49.9, adult: Plan: BMI 48 (17) Abnormal brain MRI: Plan: MRI shows thickening of the pachymeninges she does not have any h/o CSF leak or postural headaches the thickening of the pachymeninges is a nonspecific finding uncertain about the etiology of the above I discussed her case informally with [facility] they recommend repeat MRI brain w/ contrast in about 2 weeks to ensure stability of the pachymeninges finding will need MRI this week will order about 05/24 (18) UTI (urinary tract infection) due to Enterococcus: Plan: VRE s/p daptomycin x 7 days now off abx (19) Acute severe vertigo: Plan: had a 2 minute episode of spinning associated with double vision on 05/08/23. no tinnitus or hearing changes. spontaneously resolved after the 2 minutes. if this was a TIA event she is already on Eliquis BID + aspirin 81mg daily. repeat head CT on 05/[address] CTA head/neck - ??left HELICOPTER SPECIALIST stenosis otherwise both studies unremarkable. echo late fall 2022 was wnl. MRI brain was obtained after records from [facility] in [place] arrived. She had her shunt placed there in 2006. BRAND MARKETING COORDINATOR shunt is a non-programmable Delta device which is MRI compatible. NO acute or chronic CVA seen but obviously numerous findings related to her prior brain tumor resection. was this a TIA event? if yes - cont asa, Eliquis (20) Candidal intertrigo: Plan: SEVERE cont miconazole powder add diflucan 100mg daily x 7 days QTc on last EKG was wnl Plan had been a resident of [facility] but family asks that she not return to that facility. By report was living independently for years prior to going into [facility]. numerous referrals are pending for SNF placement but most places do not have beds at the present time. Admission and Anticipated Discharge Date Admission Date: May 03, 2023 Subjective patient resting in bed watching TV c/o feeling short of breath states "it's been going on for 2 days" but this is the first time she has mentioned such to anyone denies abd pain/nausea/emesis denies chest pain nursing staff found Cassy scratching her lower abdominal wall and groin area this am Cassy mentions she is having severe itching of the vulva/vagina as well as lower abd wall skin folds & groin staff using miconazole powder to these areas aguilar was placed as patient is incontinent of urine Review of Systems Review of Systems: cv - no chest pain pulm - no cough - just dyspnea & mild wheeze gen - fatigue, appetite is fair at best Physical Exam Physical Exam: gen - obese, NAD; laying in bed watching TV, audible wheeze present when she moves around in the bed mouth - MMM neck - no obvious JVD heart - RRR, s1 s2, no murmur; heart tones distant lungs - scattered end-exp wheezes, decreased BS bases, no rales abd - soft NT ND BS+ ext - 1+ edema/lymphedema b/l, pulses 2+ b/l neuro - hemiplegia LUE/LLE with contracture of LUE; speech clear/fluent skin - stasis changes b/l shins unchanged ; no cellulitis ; severe candidal rash of lower abdominal wall skin folds & groin; I was unable to see the vulva clearly because of body habitus; this portion of exam was chaperoned by nursing staff psych - awake, alert Results & Data Results & Data Vital Signs (Past 12 Hours) Vital Signs Temp Pulse Pulse Resp BP BP Pulse Ox 05/23/23 14:26 36.6 C 72 16 143/89 H 96 05/23/23 12:04 36.7 C 69 16 120/62 96 05/23/23 09:45 O2 Del Method 05/23/23 14:26 Room Air 05/23/23 12:04 Room Air 05/23/23 09:45 Room Air PG Care Time/CCT Total # of Minutes Spent Total Time Spent with Patient: Total time spent is greater than 50% in coordination of care (as documented) at patient's floor/unit and/or counseling patient: Coding Level of Care Code 82569 SUB INP/OBS CARE 2/35MIN Diagnoses Sepsis A41.9 Sepsis acute organ dysfunction status: unspecified Sepsis type: sepsis due to unspecified organism Cellulitis of right leg L03.115 Acute metabolic encephalopathy G93.41 History of DVT (deep vein thrombosis) Z86.718 Hypothyroidism E03.9 BRAND MARKETING COORDINATOR (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) shunt status Z98.2 Seizure disorder G40.909 Congestive heart failure I50.9 Hypokalemia E87.6 Hypomagnesemia E83.42 Normocytic anemia D64.9 GERD without esophagitis K21.9 Chronic anticoagulation Z79.01 Depression F32.A History of benign brain tumor Z86.011 Morbid obesity with BMI of 45.0-49.9, adult E66.01; Z68.42 Abnormal brain MRI R90.89 UTI (urinary tract infection) due to Enterococcus N39.0; B95.2 Acute severe vertigo R42 Candidal intertrigo B37.2 (1) Sepsis Sepsis acute organ dysfunction status: unspecified Sepsis type: sepsis due to unspecified organism Qualified Code(s): A41.9 - Sepsis, unspecified organism
[2023-05-23] MEDS: FUROSEMIDE INJ 20 MG/2 ML VIAL IV ONE (20:56)
[2023-05-23] MEDS: FLUCONAZOLE 100 MG TAB PO SCH (20:58)
[2023-05-24 06:40] LABS: BUN Creatinine Ratio 20.3 (10-20); Calcium 8.8 mg/dl (8.6-10.3); Creatinine Clr Calc Pharmacy 118.1 ml/min; Est GFR (African American) 120.4 ml/min; Est GFR (Non-African American) 103.9 ml/min; Magnesium 1.7 mg/dl (1.7-2.4); Potassium 4.5 mmol/L (3.5-5.1)
[2023-05-24] MEDS: MAGNESIUM OXIDE 400 MG TAB PO SCH (08:52)
[2023-05-24] MEDS: FUROSEMIDE INJ 20 MG/2 ML VIAL IV ONE (08:52)
--- NOTE | 2023-05-24 19:33 | Hospitalist Progress Note ---
Date of Service May 24, 2023 Assessment & Plan (1) Sepsis: Plan: present on admission 2nd RLE cellulitis - resolved blood cx's negative completed 7+ days of IV/PO abx she is off all abx therapy (2) Cellulitis of right leg: Plan: resolved has chronic lymphedema - would benefit from compression I asked wound care to place one-layer knee-high tubigrip stockings has good pulses on examination appreciate wound care assistance (3) Acute metabolic encephalopathy: Plan: presented with such on day of admission presumed 2nd to sepsis/RLE cellulitis confusion resolved since the early portion of the admission has intermittently had lethargy/sleepiness and confusion most days, however, she is awake/alert/mentating/talkative cause of her intermittent lethargy is uncertain we have noted that when she stays up late or doesn't sleep well the next day she is more sleepy/lethargic head CT x 2 this admission neg for acute findings of note - we finally received CT head reports from [facility] as well as CT/MRI brain images via PACs spoke with radiology - they compared her outside/old CT head with the CTs this admission - largely unchanged MRI brain WITHOUT acute or chronic stroke most findings are chronic -- MRI here was compared to MRI brain done at [facility] 06/2022 (MRI images from 06/2022 are in PACS) 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 -- acute met encephalopathy from infection (suspected as main culprit); hospital delirium; subclinical seizures; TIA event; poor sleep at night; vs other EEG did not show seizure focus ; [id number] continue vimpat BID plan to obtain repeat MRI with contrast tomorrow as neuro recommended a 2-week f/u scan to look at pachymeninges (4) History of DVT (deep vein thrombosis): Plan: Continue apixaban BID Has IVC filter in place (5) Hypothyroidism: Plan: Continue levothyroxine TSH 2.3 (6) 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 AND 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 (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) shunt status: Plan: placed in 03/2006 at [facility] records from that visit reviewed op note reviewed ASSEMBLER DRY CELL AND BATTERY shunt is a Delta non-programmable unit - MR compatible ASSEMBLER DRY CELL AND BATTERY shunt appears stable on CT and MRI (7) Seizure disorder: Plan: Continue lacosamide No seizures have been observed/reported per nursing EEG negative for seizure focus However - can't rule out subclinical seizures contributing to periods of confusion/altered MS (8) Congestive heart failure: Plan: Chronic diastolic heart failure Echo 02/27 with normal EF much of her LE edema looks like lymphedema which does not respond well to diuretics she is dyspneic today with wheezes could be mild decompensated CHF will give 20mg of IV lasix again today (9) Hypokalemia: Plan: Replaced Resolved (10) Hypomagnesemia: Plan: replaced resolved (11) Normocytic anemia: Plan: ferritin 58 transferrin low-normal suspect she is Fe deficient s/p venofer 300mg IV x 3 doses earlier this admission etiology of low Fe?? fecal occult neg x 2 (03/29, 05/31) could be dietary - eats very poorly, skips meals, does not eat nutritious meals, etc B12 level - mid 300s; will supplement is already on folate supplementation 1mg daily H/H stable today Fe studies noted - transferrin sat only 16% s/p another dose of venofer on 05/22 (12) GERD without esophagitis: Plan: cont PPI (13) Chronic anticoagulation: Plan: apixaban BID (14) Depression: Plan: cont prozac 20mg daily (15) History of benign brain tumor: Plan: left sided hemiplegia is presumably due to atrophy/encephalomalacia from her prior brain tumor resection (right sided thalamic astrocytoma per records) she also appears to have 2 meningiomas on her MRI brain -- 1. stable 1.7 cm left lateral calcified extra-axial lesion on image 16 series 8 which likely represents a meningioma. 2. probable meningioma of the falx cerebri anteriorly on image 15 measuring 8 mm. post-discharge she will need -- 1. neurology follow-up to follow seizure d/o, imaging, etc 2. neurosurgery where we refer her will depend on what town she is placed in - numerous referrals have been placed for various snfs in different locations (16) Morbid obesity with BMI of 45.0-49.9, adult: Plan: BMI 48 (17) Abnormal brain MRI: Plan: MRI shows thickening of the pachymeninges she does not have any h/o CSF leak or postural headaches the thickening of the pachymeninges is a nonspecific finding uncertain about the etiology of the above I discussed her case informally with [facility] they recommend repeat MRI brain w/ contrast in about 2 weeks to ensure stability of the pachymeninges finding will need MRI this week will order this tomorrow (18) UTI (urinary tract infection) due to Enterococcus: Plan: VRE s/p daptomycin x 7 days now off abx (19) Acute severe vertigo: Plan: had a 2 minute episode of spinning associated with double vision on 05/08/23. no tinnitus or hearing changes. spontaneously resolved after the 2 minutes. if this was a TIA event she is already on Eliquis BID + aspirin 81mg daily. repeat head CT on 05/[address] CTA head/neck - ??left INCREMENT MANAGER stenosis otherwise both studies unremarkable. echo late fall 2022 was wnl. MRI brain was obtained after records from [facility] in [place] arrived. She had her shunt placed there in 2006. ASSEMBLER DRY CELL AND BATTERY shunt is a non-programmable Delta device which is MRI compatible. NO acute or chronic CVA seen but obviously numerous findings related to her prior brain tumor resection. was this a TIA event? if yes - cont asa, Eliquis (20) Candidal intertrigo: Plan: SEVERE cont miconazole powder diflucan 100mg daily x 7 days -- day #2 today QTc on last EKG was wnl Plan had been a resident of [facility] but family asks that she not return to that facility. By report was living independently for years prior to going into [facility]. numerous referrals are pending for SNF placement but most places do not have beds at the present time. Admission and Anticipated Discharge Date Admission Date: May 03, 2023 Subjective staff report pt was very sleepy this am by the time of my visit (mid-late AM) she was awake and at baseline talkative, answering questions, watching TV denied any new complaints she is bored of the hospital did admit she slept poorly overnight Review of Systems Review of Systems: cv - no cp pulm - dyspnea much improved GI - no N/V Physical Exam Physical Exam: gen - obese, NAD; laying in bed watching TV; looks same as previous mouth - MMM neck - no obvious JVD heart - RRR, s1 s2, no murmur; heart tones distant lungs - decreased BS bases, no rales; wheezes have resolved abd - soft NT ND BS+ ext - <1+ edema/lymphedema b/l - improved; pulses 2+ b/l; she wanted tubigrips removed neuro - hemiplegia LUE/LLE with contracture of LUE; speech clear/fluent skin - stasis changes b/l shins unchanged ; no cellulitis psych - awake, alert - baseline today Results & Data Results & Data Vital Signs (Past 12 Hours) Vital Signs Temp Pulse Resp BP Pulse Ox O2 Del Method 05/24/23 14:19 36.7 C 78 17 144/84 H 94 Room Air 05/24/23 09:32 Room Air Laboratory Results Laboratory Results - last 24 hr 05/24/23 05:59 Sodium 139 Potassium 4.5 Chloride 104 Carbon Dioxide 28 Anion Gap 7 BUN 12 Creatinine 0.59 L Est Cr Clr Drug Dosing 118.1 Est GFR ( Amer) 120.4 Est GFR (Non-Af Amer) 103.9 BUN/Creatinine Ratio 20.3 H Glucose 87 Calcium 8.8 Magnesium 1.7 PG Care Time/CCT Total # of Minutes Spent Total Time Spent with Patient: Total time spent is greater than 50% in coordination of care (as documented) at patient's floor/unit and/or counseling patient: Coding Level of Care Code 69115 SUB INP/OBS CARE 2/35MIN Diagnoses Sepsis A41.9 Sepsis acute organ dysfunction status: unspecified Sepsis type: sepsis due to unspecified organism Cellulitis of right leg L03.115 Acute metabolic encephalopathy G93.41 History of DVT (deep vein thrombosis) Z86.718 Hypothyroidism E03.9 ASSEMBLER DRY CELL AND BATTERY (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) shunt status Z98.2 Seizure disorder G40.909 Congestive heart failure I50.9 Hypokalemia E87.6 Hypomagnesemia E83.42 Normocytic anemia D64.9 GERD without esophagitis K21.9 Chronic anticoagulation Z79.01 Depression F32.A History of benign brain tumor Z86.011 Morbid obesity with BMI of 45.0-49.9, adult E66.01; Z68.42 Abnormal brain MRI R90.89 UTI (urinary tract infection) due to Enterococcus N39.0; B95.2 Acute severe vertigo R42 Candidal intertrigo B37.2 (1) Sepsis Sepsis acute organ dysfunction status: unspecified Sepsis type: sepsis due to unspecified organism Qualified Code(s): A41.9 - Sepsis, unspecified organism
[2023-05-25] MEDS: MICONAZOLE NITRATE POWDER 85 GM EXT PRN (05:48)
[2023-05-25 07:12] LABS: BUN Creatinine Ratio 28.8 (10-20); Calcium 8.8 mg/dl (8.6-10.3); Est GFR (African American) 125.5 ml/min; Est GFR (Non-African American) 108.3 ml/min; Potassium 4.1 mmol/L (3.5-5.1)
[2023-05-25] MEDS: FUROSEMIDE INJ 20 MG/2 ML VIAL IV ONE (09:51)
[2023-05-25] MEDS: GADOBUTROL 65ML VIAL IV ONE (16:55)
--- NOTE | 2023-05-25 17:56 | Magnetic Resonance Report ---
MRI OF THE BRAIN WITHOUT AND WITH IV CONTRAST CLINICAL HISTORY: h/o tumor w/ resection; pachymeninges enhancement COMPARISON STUDY: Head CT May 08, 2023. MRIs of the brain June 12, 2022 and May 10, 2023. TECHNIQUE: Utilizing a 1.5 Priscilla magnet and dedicated coil, multiplanar, multiecho imaging of the br ain was performed pre and postcontrast administration. IV administration of 10.7 mL of Gadavist cont rast was uneventful. Thin cut T1 post contrast imaging was performed. FINDINGS: Right sided craniotomy is noted. Right extra-axial fluid collection measuring 9.5 x 2.3 cm is unchanged from earlier exams dating back to June 12, 2022. Left ventriculostomy catheter is in lorna ce. Ventricular dilatation is unchanged. Basal cisterns are patent. No new extra axial collections ar e present. Fluid within the right mastoid air cells is similar to previous MRI. Scattered foci of bhumi ceptibility artifact within the brain parenchyma are unchanged since initial MRI of June 12, 2022. No new foci are present. Pachymeningeal thickening and enhancement is unchanged since MRI May 10 024. The dural thickening has mildly increased since MRI of June 12, 2022. Multiple clustered enhanci ng subependymal nodules adjacent to the frontal horn of the left lateral ventricle are unchanged sinc e MRI of May 10, 2023. These appear unchanged from unenhanced MRI of June 12, 2022. The enhancing extra-axial calcified density measuring 1.5 cm overlying the left frontal lobe represents a meningio ma. There is a new tiny 3 mm rim-enhancing focus within the left internal capsule on thin cut T1 post contrast image 65 of 130. There is a small corresponding T2 hyperintense focus. Otherwise, the appea krystal of the brain is unchanged. IMPRESSION: 1. No evidence for acute infarct. 2. Stable ventricular dilatation. Left ventriculostomy catheter in place. 3. Postoperative findings following right craniotomy. Stable extra-axial operative bed fluid collecti on. This favors hygroma. 4. No change in multiple clustered subependymal enhancing nodules adjacent to the frontal horn of the left lateral ventricle. These are nonspecific and can be assessed on follow-up exams to ensure stabi lity. 5. No change in pachymeningeal dural thickening and enhancement since previous MRI May 10, 2023. Dural thickening has mildly increased since earlier MRI of June 12, 2022. This is nonspecific and cou ld be postoperative. Intracranial hypotension is within the differential. 6. Punctate ring enhancing 3 mm focus within the left internal capsule. This is also nonspecific and can be assessed on follow-up exams. Otherwise, no change in appearance of the brain. ACT 112: Negative or not required by law. Electronically signed by: Nick Dickerson M.D. 05/25/2023 5:53 PM
--- NOTE | 2023-05-25 18:22 | Hospitalist Progress Note ---
Date of Service May 25, 2023 Assessment & Plan (1) Sepsis: Plan: present on admission 2nd RLE cellulitis - resolved blood cx's negative completed 7+ days of IV/PO abx she is off all abx therapy (2) Cellulitis of right leg: Plan: resolved has chronic lymphedema - would benefit from compression I asked wound care to place one-layer knee-high tubigrip stockings has good pulses on examination appreciate wound care assistance (3) Acute metabolic encephalopathy: Plan: presented with such on day of admission presumed 2nd to sepsis/RLE cellulitis confusion resolved since the early portion of the admission has intermittently had lethargy/sleepiness and confusion most days, however, she is awake/alert/mentating/talkative cause of her intermittent lethargy is uncertain we have noted that when she stays up late or doesn't sleep well the next day she is more sleepy/lethargic head CT x 2 this admission neg for acute findings of note - we finally received CT head reports from [facility] as well as CT/MRI brain images via PACs spoke with radiology - they compared her outside/old CT head with the CTs this admission - largely unchanged MRI brain WITHOUT acute or chronic stroke most findings are chronic -- MRI here was compared to MRI brain done at [facility] 06/2022 (MRI images from 06/2022 are in PACS) 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 -- acute met encephalopathy from infection (suspected as main culprit); hospital delirium; subclinical seizures; TIA event; poor sleep at night; vs other EEG did not show seizure focus ; [id number] continue vimpat BID plan to obtain repeat MRI with contrast today to compare with 2 weeks ago depending on results consider formal neurology evaluation (4) History of DVT (deep vein thrombosis): Plan: Continue apixaban BID Has IVC filter in place (5) Hypothyroidism: Plan: Continue levothyroxine TSH 2.3 (6) CERTIFIED OPHTHALMIC SURGICAL ASSISTANT (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) shunt status: Plan: placed in 03/2006 at [facility] records from that visit reviewed op note reviewed CERTIFIED OPHTHALMIC SURGICAL ASSISTANT shunt is a Delta non-programmable unit - MR compatible CERTIFIED OPHTHALMIC SURGICAL ASSISTANT shunt appears stable on CT and MRI (7) Seizure disorder: Plan: Continue lacosamide No seizures have been observed/reported per nursing EEG negative for seizure focus However - can't rule out subclinical seizures contributing to periods of confusion/altered MS (8) Congestive heart failure: Plan: Chronic diastolic heart failure Echo 02/27 with normal EF much of her LE edema looks like lymphedema which does not respond well to diuretics could have mild decompensated CHF thus have been diuresing with lasix 20mg daily last few days gave another 20mg of IV lasix today repeat labs am (9) Hypokalemia: Plan: Replaced Resolved (10) Hypomagnesemia: Plan: replaced resolved (11) Normocytic anemia: Plan: ferritin 58 transferrin low-normal suspect she is Fe deficient s/p venofer 300mg IV x 3 doses earlier this admission etiology of low Fe?? fecal occult neg x 2 (03/29, 05/31) could be dietary - eats very poorly, skips meals, does not eat nutritious meals, etc B12 level - mid 300s; will supplement is already on folate supplementation 1mg daily H/H stable today Fe studies noted - transferrin sat only 16% s/p another dose of venofer on 05/22 repeat h/h in 2-3 days for stability (12) GERD without esophagitis: Plan: cont PPI (13) Chronic anticoagulation: Plan: apixaban BID (14) Depression: Plan: cont prozac 20mg daily (15) History of benign brain tumor: Plan: left sided hemiplegia is presumably due to atrophy/encephalomalacia from her prior brain tumor resection (right sided thalamic astrocytoma per records) she also appears to have 2 meningiomas on her MRI brain -- 1. stable 1.7 cm left lateral calcified extra-axial lesion on image 16 series 8 which likely represents a meningioma. 2. probable meningioma of the falx cerebri anteriorly on image 15 measuring 8 mm. post-discharge she will need -- 1. neurology follow-up to follow seizure d/o, imaging, etc 2. neurosurgery where we refer her will depend on what town she is placed in - numerous referrals have been placed for various snfs in different locations repeat MRI today (16) Morbid obesity with BMI of 45.0-49.9, adult: Plan: BMI 48 (17) Abnormal brain MRI: Plan: MRI shows thickening of the pachymeninges she does not have any h/o CSF leak or postural headaches the thickening of the pachymeninges is a nonspecific finding uncertain about the etiology of the above I discussed her case informally with [facility] they recommend repeat MRI brain w/ contrast in about 2 weeks to ensure stability of the pachymeninges finding MRI brain w/ and w/o contrast today (18) UTI (urinary tract infection) due to Enterococcus: Plan: VRE s/p daptomycin x 7 days now off abx (19) Acute severe vertigo: Plan: had a 2 minute episode of spinning associated with double vision on 05/08/23. no tinnitus or hearing changes. spontaneously resolved after the 2 minutes. if this was a TIA event she is already on Eliquis BID + aspirin 81mg daily. repeat head CT on 05/[address] CTA head/neck - ??left CELL GENETICIST stenosis otherwise both studies unremarkable. echo late fall 2022 was wnl. MRI brain was obtained after records from [facility] in [place] arrived. She had her shunt placed there in 2006. CERTIFIED OPHTHALMIC SURGICAL ASSISTANT shunt is a non-programmable Delta device which is MRI compatible. NO acute or chronic CVA seen but obviously numerous findings related to her prior brain tumor resection. was this a TIA event? if yes - cont asa, Eliquis (20) Candidal intertrigo: Plan: SEVERE cont miconazole powder diflucan 100mg daily x 7 days -- day #3 today QTc on last EKG was wnl Plan had been a resident of [facility] but family asks that she not return to that facility. By report was living independently for years prior to going into [facility]. numerous referrals are pending for SNF placement but most places do not have beds at the present time. will update pt's sister tomorrow once neuro has seen her Admission and Anticipated Discharge Date Admission Date: May 03, 2023 Subjective ate good breakfast today fair lunch sleepy much of the day during the visit the nursing staff was with her preparing her for the MRI brain she was awake/alert no new complaints breathing improved in fact, she was laying flat in bed and had no dyspnea/orthopnea 1300cc out with lasix this am Review of Systems Review of Systems: CV - no abd pain pulm - denies dyspnea GI - no pain; smear of stool today only per staff Physical Exam Physical Exam: gen - obese, NAD; laying flat comfortably mouth - MMM heart - RRR, s1 s2, no murmur; heart tones distant lungs - decreased BS bases, no rales; no wheezes abd - soft NT BS+; mildly distended ext - <1+ edema/lymphedema b/l - improved, best her legs have looked all admission; pulses 2+ b/l neuro - hemiplegia LUE/LLE with contracture of LUE; speech clear/fluent skin - stasis changes b/l shins unchanged ; no cellulitis; severe intertrigo rash lower abdominal wall and groin modestly improved psych - awake, alert Results & Data Results & Data Vital Signs (Past 12 Hours) Vital Signs Temp Pulse Resp BP Pulse Ox O2 Del Method 05/25/23 14:51 36.4 C L 73 16 135/78 94 Room Air 05/25/23 08:00 Room Air 05/25/23 07:11 36.9 C 83 16 148/87 H 95 Room Air Laboratory Results Laboratory Results - last 24 hr 05/25/23 05/25/23 06:12 16:16 Sodium 139 Potassium 4.1 Chloride 103 Carbon Dioxide 30 Anion Gap 6 BUN 15 Creatinine 0.52 L Est Cr Clr Drug Dosing 135.0 Est GFR ( Amer) 125.5 Est GFR (Non-Af Amer) 108.3 BUN/Creatinine Ratio 28.8 H Glucose 82 POC Glucose 90 Calcium 8.8 PG Care Time/CCT Total # of Minutes Spent Total Time Spent with Patient: Total time spent is greater than 50% in coordination of care (as documented) at patient's floor/unit and/or counseling patient: Coding Level of Care Code 16459 SUB INP/OBS CARE 2/35MIN Diagnoses Sepsis A41.9 Sepsis acute organ dysfunction status: unspecified Sepsis type: sepsis due to unspecified organism Cellulitis of right leg L03.115 Acute metabolic encephalopathy G93.41 History of DVT (deep vein thrombosis) Z86.718 Hypothyroidism E03.9 CERTIFIED OPHTHALMIC SURGICAL ASSISTANT (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) shunt status Z98.2 Seizure disorder G40.909 Congestive heart failure I50.9 Hypokalemia E87.6 Hypomagnesemia E83.42 Normocytic anemia D64.9 GERD without esophagitis K21.9 Chronic anticoagulation Z79.01 Depression F32.A History of benign brain tumor Z86.011 Morbid obesity with BMI of 45.0-49.9, adult E66.01; Z68.42 Abnormal brain MRI R90.89 UTI (urinary tract infection) due to Enterococcus N39.0; B95.2 Acute severe vertigo R42 Candidal intertrigo B37.2 (1) Sepsis Sepsis acute organ dysfunction status: unspecified Sepsis type: sepsis due to unspecified organism Qualified Code(s): A41.9 - Sepsis, unspecified organism
[2023-05-26 07:01] LABS: C Reactive Protein 2.3 mg/dl (0-0.5); Calcium 8.8 mg/dl (8.6-10.3); Creatinine Clr Calc Pharmacy 106.7 ml/min; Est GFR (African American) 117.3 ml/min; Est GFR (Non-African American) 101.2 ml/min; Magnesium 1.8 mg/dl (1.7-2.4); Potassium 3.9 mmol/L (3.5-5.1)
--- NOTE | 2023-05-26 11:01 | Neurology Consultation ---
Date of Consultation May 26, 2023 Assessment & Plan (1) Acute metabolic encephalopathy: History of Present Illness Attending Physician: Aston Anaya MD History of Present Illness 52 yo female with fluctuating AMS, this morning pt is alert and very interactive. pt with complex hx of brain tumor and s/p surgery many years ago and CONSULTANT IN ERGONOMICS AND SAFETY shunt. repeat mri brain essentially unchanged and appears chronic changes and nonspecific. chart reviewed. admission HPI: 52 y/o with history of benign brain tumor resection and resultant seizure disorder and remote CONSULTANT IN ERGONOMICS AND SAFETY shunt, VTE on chronic anticoagulation, and CHF who was sent to the ED from her nursing facility with fever and decreased level of consciousness. She is not able to provide any history but does open her eyes to voice and can inconsistently answer yes/no questions. She denies headache, neck pain, chest pain, abdominal pain, shortness of breath. I reviewed the records from [facility] and she was started on oral doxycycline 04/27 for RLE cellulitis in an area where she was scratching. I see a one-time administration of po hydroxyzine 48h ago but otherwise no record of sedating medications. No history of seizure was given. In ED she had one episode of emesis early on, currently denied nausea. EMS gave IV fluids, zofran. Had 2L IVF between EMS and ED. Febrile with Tm 38.6 and tachycardic to 118 but not hypotensive. Started on cefepime and vancomycin. Fever and tachycardia resolved throughout the ED course. Mental status waxed and waned - per ED RN she was more alert and talking more earlier this AM before I saw her midmorning. Allergies Allergy/AdvReac Type Severity Reaction Status Date / Time Penicillins Allergy Unknown CAN'T Verified 05/03/23 08:16 REMEMBER phenytoin [From Dilantin] AdvReac Intermediate REALLY BAD Verified 05/03/23 08:16 HEADACHE Home Medications Medication Instructions Recorded Confirmed Type acetaminophen 325 mg tablet 650 mg PO Q6H PRN PAIN/FEVER 02/26/23 05/03/23 History (Tylenol) apixaban 5 mg tablet (Eliquis) 5 mg PO BID 02/26/23 05/03/23 History folic acid 1 mg tablet 1 mg PO DAILY 02/26/23 05/03/23 History furosemide 40 mg tablet 40 mg PO DAILY 02/26/23 05/03/23 History lacosamide 100 mg tablet 100 mg PO Q12H 02/26/23 05/03/23 History levothyroxine 25 mcg tablet 25 mcg PO DAILY 02/26/23 05/03/23 History multivitamin 1 tab PO QAM 02/26/23 05/03/23 History oxybutynin chloride 15 mg 15 mg PO DAILY 02/26/23 05/03/23 History tablet,extended release 24 hr pantoprazole 40 mg tablet,delayed 40 mg PO DAILY 02/26/23 05/03/23 History release potassium chloride 10 mEq 20 meq PO DAILY 02/26/23 05/03/23 History capsule,extended release sennosides 8.6 mg tablet (Senokot) 17.2 mg PO HS 02/26/23 05/03/23 History aspirin 81 mg chewable tablet 81 mg PO DAILY 05/03/23 05/03/23 History bisacodyl 10 mg rectal suppository 10 mg OR DAILY PRN Constipation 05/03/23 05/03/23 History (Dulcolax (bisacodyl)) doxycycline hyclate 100 mg tablet 100 mg PO BID 05/03/23 05/03/23 History fluoxetine 10 mg capsule 20 mg PO DAILY 05/03/23 05/03/23 History hydroxyzine HCl 25 mg tablet 25 mg PO Q6H PRN Itching 05/03/23 05/03/23 History lorazepam 2 mg/mL injection syringe 1 mg IM .[id number] PRN epilepsy 05/03/23 05/03/23 History magnesium hydroxide 400 mg/5 mL 2,400 mg PO DAILY PRN Constipation 05/03/23 05/03/23 History oral suspension (Milk of Magnesia) sodium phosphates 19 gram-7 118 ml OR DAILY PRN Constipation 05/03/23 05/03/23 History gram/118 mL enema (Enema) Patient History Medical History History of DVT (deep vein thrombosis) GERD (gastroesophageal reflux disease) History of benign brain tumor Seizure disorder Congestive heart failure 02/27/23 Echo EF 55-60% technically limited study Hypothyroidism Surgical History CONSULTANT IN ERGONOMICS AND SAFETY (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) shunt status Social History Smoking Status: Never smoker Second Hand Exposure: No; Do You Dip or Chew Tobacco: No; Hx Alcohol Use: No Hx Substance Use: No Preferred Language: Macedonian Communication Ability: Effective Machine Engineer Required: No Beliefs That Will Affect Care: None Current Living Situation: Rehab Feels Safe at Home: Yes Assistive Devices: Walker and Wheelchair Exam (Neuro) Physical Exam: Neuro: Mental: Alert, knew month and not clear about year but she knew she was in hospital and she knew president Betty, she was able to carry out good conversation with me this morning and very interactive, fluent speech, normal comprehension, no apraxia, no L/R confusion. CN: PERRL, Full EOM, symmetric face, intact sensation t/o face, midline T/U/P, 5/5 SCM/traps. Motor: No abnormal movements, RUE: 5/5 t/o, LUE: contracture with spastic- paresis. LLE: large edema t/o and cellulitis. RLE: 3+/5 t/o and edema. Sens: intact to touch b/l grossly upper limbs. Coord: intact rt arm. DTR: 1+ sym b/l upper limbs. Gait: deferred Impression: 52 yo female with much improved fluctuating mental status in setting of sepsis, celluitis, UTI and prior Brain tumor resection. 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 I believe she is having on/off fluctuating issue due to her baseline mental disability with recent sepsis and improving UTI and metabolic disorders and still recovering. I do not feel her CONSULTANT IN ERGONOMICS AND SAFETY shunt is issue based on mri brain scan. not concern for mets at this point. Recommendations: I do not feels she needs LP. EEG reassurring and her clinical picture is stable and improving overall. It is going to take some time for pt to recover from chronic cellulitis/UTI/sepsis. current supportive care is reasonable and close f/u with psych for anxiety and depression is needed. focus on nutritional care and ongoing infection management. otherwise not much to add from neurology at this point. please call again if new question. Chart reviewed I have spent more than 50% educating patient about potential diagnosis and neurological evaluation and coordinating care with patient's treatment team. Total time spent (including chart review and coordination of care): 60 min (this includes chart review). Results & Data Vital Signs (Past 12 Hours) Vital Signs Temp Pulse Resp BP Pulse Ox O2 Del Method 05/26/23 09:29 96 Room Air 05/26/23 07:05 36.5 C 74 16 127/80 93 Room Air PG Care Time/CCT Total # of Minutes Spent Total Time Spent with Patient: Total time spent is greater than 50% in coordination of care (as documented) at patient's floor/unit and/or counseling patient: Coding Level of Care Code 33104 IN/OBS CONSULT LVL 4,60M Diagnoses Acute metabolic encephalopathy G93.41
[2023-05-26] MEDS: FUROSEMIDE INJ 20 MG/2 ML VIAL IV ONE (16:29)
--- NOTE | 2023-05-26 18:37 | Hospitalist Progress Note ---
Date of Service May 26, 2023 Assessment & Plan (1) Dysphagia: Plan: this admission I had not been informed of any swallowing difficulties by staff or nursing however, today she had a severe episode of justen aspiration involving a spoonful of corn I have intermittently heard end-exp wheezes throughout her stay in light of today's event - could the wheezes be a sign of intermittent aspiration? (wheezing previously attributed to pulmonary edema) given the severity of today's event I made her NPO asked speech therapy to see in consult - likely to need video swallow aspiration precautions (2) Sepsis: Plan: present on admission 2nd RLE cellulitis - resolved blood cx's negative completed 7+ days of IV/PO abx she is off all abx therapy (3) Cellulitis of right leg: Plan: resolved has chronic lymphedema - would benefit from compression I asked wound care to place one-layer knee-high tubigrip stockings unfortunately she dislikes these, and multiple times she has asked me to remove them has good pulses on exam (4) Acute metabolic encephalopathy: Plan: presented with such on day of admission presumed 2nd to sepsis/RLE cellulitis confusion then resolved since the early portion of the admission has intermittently had lethargy/s leepiness and confusion most days, however, she is awake/alert/mentating/talkative cause of her intermittent lethargy is uncertain we have noted that when she stays up late or doesn't sleep well the next day she is more sleepy/lethargic head CT x 2 this admission neg for acute findings of note - we finally received CT head reports from [facility] as well as CT/MRI brain images via PACs spoke with radiology - they compared her outside/old CT head with the CTs this admission - largely unchanged MRI brain WITHOUT acute or chronic stroke most findings are chronic -- MRI here was compared to MRI brain done at [facility] 06/2022 (MRI images from 06/2022 are in PACS) 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 -- acute met encephalopathy from infection (suspected as main culprit); hospital delirium; subclinical seizures; TIA events; poor sleep at night; vs other EEG did not show seizure focus ; [id number] continue vimpat BID repeat MRI brain 05/25/23 largely unchanged from her MRI brain done 2 weeks prior on 05/10/23 Dr Herson Ashley performed neurology consultation today appreciate his assistance Dr Ashley does not believe she has 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 records from that visit reviewed op note reviewed LOGGING EQUIPMENT MECHANIC shunt is a Delta non-programmable unit - MR compatible LOGGING EQUIPMENT MECHANIC shunt appears stable on CT and MRIs (8) Seizure disorder: Plan: Continue lacosamide No seizures have been observed/reported per nursing EEG negative for seizure focus However - can't rule out subclinical seizures contributing to periods of confusion/altered MS (9) Congestive heart failure: Plan: Chronic diastolic heart failure Echo 02/27 with normal EF much of her LE edema looks like lymphedema which does not respond well to diuretics could have mild decompensated CHF thus have been diuresing with lasix 20mg daily last few days gave another 20mg of IV lasix with good diuresis consider transitioning back to po lasix soon (10) Hypokalemia: Plan: Replaced Resolved (11) Hypomagnesemia: Plan: replaced resolved (12) Normocytic anemia: Plan: ferritin 58 transferrin low-normal suspect she has had Fe deficiency s/p venofer 300mg IV x 3 doses earlier this admission etiology of low Fe?? fecal occult neg x 2 (03/29, 05/31) could be dietary - eats very poorly, skips meals, does not eat nutritious meals, etc B12 level - mid 300s; supplementing is already on folate supplementation 1mg daily most recent H/H stable repeat Fe studies later in the admission with transferrin sat still only 16% s/p another dose of venofer on 05/22 (this is 4th dose for the entire stay) repeat h/h in 2-3 days for stability (13) GERD without esophagitis: Plan: cont PPI reflux/aspiration precautions (14) Chronic anticoagulation: Plan: apixaban BID (15) Depression: Plan: cont prozac 20mg daily (16) History of benign brain tumor: Plan: left sided hemiplegia is presumably due to atrophy/encephalomalacia from her prior brain tumor resection (right sided thalamic astrocytoma per records) she also appears to have 2 meningiomas on her MRI brain -- 1. stable 1.7 cm left lateral calcified extra-axial lesion on image 16 series 8 which likely represents a meningioma. 2. probable meningioma of the falx cerebri anteriorly on image 15 measuring 8 mm. post-discharge she will need -- 1. neurology follow-up to follow seizure d/o, imaging, etc 2. neurosurgery where we refer her will depend on what town she is placed in - numerous referrals have been placed for various snfs in different locations repeat MRI done yesterday see above discussion in #4 (17) Morbid obesity with BMI of 45.0-49.9, adult: Plan: BMI 46-48 (18) Abnormal brain MRI: Plan: 05/10/23 brain MRI showed thickening of the pachymeninges she does not have any h/o CSF leak or postural headaches the thickening of the pachymeninges is a nonspecific finding -- could be dural thickening per radiology repeat MRI brain 05/25/23 with stable pachymeninges thus, likely a chronic finding appreciate neurology consultation & recs (19) UTI (urinary tract infection) due to Enterococcus: Plan: VRE, low colony count (20,000 CFU) s/p daptomycin x 7 days earlier this stay -- now off abx (20) Acute severe vertigo: Plan: had a 2 minute episode of spinning associated with double vision on 05/08/23. no tinnitus or hearing changes. spontaneously resolved after the 2 minutes. if this was a TIA event she is already on Eliquis BID + aspirin 81mg daily. repeat head CT on 05/[address] CTA head/neck - ??left MICA PLATE LAYER HAND stenosis otherwise both studies unremarkable. echo late fall 2022 was wnl. MRI brain was obtained after records from [facility] in [facility] arrived. She had her shunt placed there in 2006. LOGGING EQUIPMENT MECHANIC shunt is a non-programmable Delta device which is MRI compatible. NO acute or chronic CVA seen but obviously numerous findings related to her p rior brain tumor resection. was this a brief TIA event? if yes - cont Andrea hayden (21) Candidal intertrigo: Plan: SEVERE cont miconazole powder diflucan 100mg daily x 7 days -- day #4 today QTc on last EKG was wnl Plan had been a resident of [facility] but family asks that she not return to that facility. By report was living independently for years prior to going into [facility]. numerous referrals are pending for SNF placement but most places do not have beds at the present time. updated pt's sister Selin Trevino today at bedside as noted in the subjective portion of this note Admission and Anticipated Discharge Date Admission Date: May 03, 2023 Subjective 2 visits to pt's room today first visit was during rounds I was discussing her MRI results with her when she suddenly took a spoonful of corn from her meal-tray and immediately had justen aspiration she was able to cough up some of the corn kernels after the event she had audible wheezing and coughing for a few more minutes I ordered her a duoneb for her following this event 2nd visit was late in the day - about 1930 in the evening pt's sister was at bedside I discussed with her sister the MRI brain results from the weekend explained the MRI was unchanged from 2 weeks ago, and unchanged from her MRI brain done in [place] in early 2022 also mentioned the aspiration event earlier in the day and my plan for speech therapy consultation for swallow eval her sister explained she has had video swallows in the past her sister wanted to be contacted by speech therapy prior to pursuing any testing I further explained the impression of the neurology big machine consultant from earlier today Her sister expressed significant frustration about Cassy's decline over the year She wants us to obtain older MRIs of the brain (before 2022) to see if current MRIs are similar or different She is concerned by her sister's fluctuating level of alertness (there are times when she is very sleepy, and other times when she is very awake/alert) Did discuss that neurology feels that the fluctuation is likely due to hospital delirium in the setting of infections, etc She asked about whether her sister Cassy has dementia Finally, she asked that I contact the neurologist and ask him to call her with an update & his impressions Review of Systems Review of Systems: cv - no chest pains pulm - cough/wheeze following the aspiration event; otherwise no dyspnea GI - no abd pain; no N/V - aguilar remains in place; good diuresis with lasix today Physical Exam Physical Exam: first visit: gen - obese, NAD; laying comfortably in bed; after her aspiration of corn she was coughing/wheezing mouth - MMM heart - RRR, s1 s2, no murmur; heart tones distant lungs - focal wheezes right bronchial tree; clear on left; no rales; no distress except for cough abd - soft NT BS+; mildly distended (no change) ext - <1+ edema/lymphedema b/l - improved; pulses 2+ b/l neuro - hemiplegia LUE/LLE with contracture of LUE; speech clear/fluent skin - stasis changes b/l shins unchanged ; no cellulitis psych - awake, alert - similar to prior visits Results & Data Results & Data Vital Signs (Past 12 Hours) Vital Signs Temp Pulse Resp BP Pulse Ox O2 Del Method 05/26/23 14:20 36.5 C 74 18 134/81 97 Room Air 05/26/23 09:29 96 Room Air 05/26/23 07:05 36.5 C 74 16 127/80 93 Room Air Laboratory Results Laboratory Results 05/26/23 05:43 ESR 68 H Sodium 140 Potassium 3.9 Chloride 104 Carbon Dioxide 31 Anion Gap 5 BUN 16 Creatinine 0.64 Est Cr Clr Drug Dosing 106.7 Est GFR ( Amer) 117.3 Est GFR (Non-Af Amer) 101.2 BUN/Creatinine Ratio 25.0 H Glucose 85 POC Glucose Calcium 8.8 Magnesium 1.8 C-Reactive Protein 2.30 H PG Care Time/CCT Total # of Minutes Spent Total Time Spent with Patient: Total time spent is greater than 50% in coordination of care (as documented) at patient's floor/unit and/or counseling patient: Coding Level of Care Code 71980 SUB INP/OBS CARE 3/50MIN Diagnoses Dysphagia R13.10 Sepsis A41.9 Sepsis acute organ dysfunction status: unspecified Sepsis type: sepsis due to unspecified organism Cellulitis of right leg L03.115 Acute metabolic encephalopathy G93.41 History of DVT (deep vein thrombosis) Z86.718 Hypothyroidism E03.9 LOGGING EQUIPMENT MECHANIC (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) shunt status Z98.2 Seizure disorder G40.909 Congestive heart failure I50.9 Hypokalemia E87.6 Hypomagnesemia E83.42 Normocytic anemia D64.9 GERD without esophagitis K21.9 Chronic anticoagulation Z79.01 Depression F32.A History of benign brain tumor Z86.011 Morbid obesity with BMI of 45.0-49.9, adult E66.01; Z68.42 Abnormal brain MRI R90.89 UTI (urinary tract infection) due to Enterococcus N39.0; B95.2 Acute severe vertigo R42 Candidal intertrigo B37.2 (2) Sepsis Sepsis acute organ dysfunction status: unspecified Sepsis type: sepsis due to unspecified organism Qualified Code(s): A41.9 - Sepsis, unspecified organism
[2023-05-27] MEDS: ALBUT/IPRATROP 3MG/0.5MG NEB 3 ML VIAL NEB STA (08:26)
--- NOTE | 2023-05-27 18:57 | Hospitalist Progress Note ---
Date of Service May 27, 2023 Assessment & Plan (1) Sepsis: Plan: present on admission 2nd RLE cellulitis - resolved blood cx's negative completed 7+ days of IV/PO abx she is off all abx therapy (2) Cellulitis of right leg: Plan: resolved has chronic lymphedema - would benefit from compression asked wound care to place one-layer knee-high tubigrip stockings has good pulses on examination (3) Acute metabolic encephalopathy: Plan: presented with such on day of admission presumed 2nd to sepsis/RLE cellulitis confusion resolved since the early portion of the admission has intermittently had lethargy/sleepiness and confusion most days, however, she is awake/alert/mentating/talkative cause of her intermittent lethargy is uncertain we have noted that when she stays up late or doesn't sleep well the next day she is more sleepy/lethargic head CT x 2 this admission neg for acute findings of note - we finally received CT head reports from [facility] as well as CT/MRI brain images via PACs radiology compared her outside/old CT head with the CTs this admission - largely unchanged MRI brain WITHOUT acute or chronic stroke most findings are chronic -- MRI here was compared to MRI brain done at [facility] 06/2022 (MRI images from 06/2022 are in PACS) 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 -- acute met encephalopathy from infection (suspected as main culprit); hospital delirium; subclinical seizures; TIA event; poor sleep at night; vs other EEG did not show seizure focus ; [id number] continue vimpat BID Repeat brain MRI 05/26 unchanged from previous Neurologist Dr. Ashley consulted 05/26 - did not recommend LP at this time, unlikely CONTROL PANEL OPERATOR infection, recommended continued supportive care for recovery from infections, metabolic encephalopathy (4) History of DVT (deep vein thrombosis): Plan: Continue apixaban BID Has IVC filter in place (5) Hypothyroidism: Plan: Continue levothyroxine TSH 2.3 (6) TRANSFER CAR OPERATOR DRIER (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) shunt status: Plan: placed in 03/[address] [facility] records from that visit reviewed op note reviewed TRANSFER CAR OPERATOR DRIER shunt is a Delta non-programmable unit - MR compatible TRANSFER CAR OPERATOR DRIER shunt appears stable on CT and MRI (7) Seizure disorder: Plan: Continue lacosamide No seizures have been observed/reported per nursing EEG negative for seizure focus However - can't rule out subclinical seizures contributing to periods of confusion/altered MS (8) Congestive heart failure: Plan: Chronic diastolic heart failure Echo 02/27 with normal EF much of her LE edema looks like lymphedema which does not respond well to diuretics could have mild decompensated CHF thus diuresed with few doses IV lasix -seems to do well on every other day lasix 20 mg - will resume (9) Hypokalemia: Plan: Replaced Resolved (10) Hypomagnesemia: Plan: replaced resolved (11) Normocytic anemia: Plan: ferritin 58 transferrin low-normal suspect she is Fe deficient s/p venofer 300mg IV x 3 doses earlier this admission etiology of low Fe?? fecal occult neg x 2 (03/29, 05/31) could be dietary - eats very poorly, skips meals, does not eat nutritious meals, etc. also still has menses. B12 level - mid 300s; will supplement is already on folate supplementation 1mg daily H/H stable today Fe studies noted - transferrin sat only 16% s/p another dose of venofer on 05/22 repeat h/h in 2-3 days for stability (12) GERD without esophagitis: Plan: cont PPI (13) Chronic anticoagulation: Plan: apixaban BID (14) Depression: Plan: cont prozac 20mg daily (15) History of benign brain tumor: Plan: left sided hemiplegia is presumably due to atrophy/encephalomalacia from her prior brain tumor resection (right sided thalamic astrocytoma per records) she also appears to have 2 meningiomas on her MRI brain -- 1. stable 1.7 cm left lateral calcified extra-axial lesion on image 16 series 8 which likely represents a meningioma. 2. probable meningioma of the falx cerebri anteriorly on image 15 measuring 8 mm. post-discharge she will need -- 1. neurology follow-up to follow seizure d/o, imaging, etc 2. neurosurgery where we refer her will depend on what town she is placed in - numerous referrals have been placed for various snfs in different locations repeat MRI unchanged 05/26 (16) Morbid obesity with BMI of 45.0-49.9, adult: Plan: BMI 48 (17) Abnormal brain MRI: Plan: MRI shows thickening of the pachymeninges she does not have any h/o CSF leak or postural headaches the thickening of the pachymeninges is a nonspecific finding they recommend repeat MRI brain w/ contrast in about 2 weeks to ensure stability of the pachymeninges finding - MRI unchanged 05/26. See neuro consult 05/26. (18) UTI (urinary tract infection) due to Enterococcus: Plan: VRE s/p daptomycin x 7 days now off abx (19) Acute severe vertigo: Plan: had a 2 minute episode of spinning associated with double vision on 05/08/23. no tinnitus or hearing changes. spontaneously resolved after the 2 minutes. if this was a TIA event she is already on Eliquis BID + aspirin 81mg daily. repeat head CT on 05/[address] CTA head/neck - ??left CONSTRUCTION SPECIALIST stenosis otherwise both studies unremarkable. echo late fall 2022 was wnl. MRI brain was obtained after records from [facility] in [place] arrived. She had her shunt placed there in 2006. TRANSFER CAR OPERATOR DRIER shunt is a non-programmable Delta device which is MRI compatible. NO acute or chronic CVA seen but obviously numerous findings related to her prior brain tumor resection. was this a TIA event? if yes - cont asa, Eliquis (20) Candidal intertrigo: Plan: SEVERE cont miconazole powder diflucan 100mg daily x 7 days -- day #4 today QTc on last EKG was wnl Continue wound care, reviewed photo 05/27 Plan had been a resident of [facility] but family asks that she not return to that facility. By report was living independently for years prior to going into [facility]. numerous referrals are pending for SNF placement but most places do not have beds at the present time. will update pt's sister tomorrow once neuro has seen her Admission and Anticipated Discharge Date Admission Date: May 03, 2023 Subjective awake seen midday. RN reports awake since breakfast. day/night reversal seems improved. Physical Exam 2 Physical Exam: PHYSICAL EXAMINATION Last 24h vital signs reviewed, see documentation in flowsheet General: awake and alert, watching TV HEENT: Normocephalic, atraumatic, pupils round and equal, sclerae anicteric, no conjunctival injection, moist mucus membranes. Lungs: Normal respiratory effort. Clear to auscultation bilaterally. No RRW Heart: Regular rate and rhythm, no murmurs. No JVD Abdomen: Soft, nontender, nondistended. Bowel sounds present. Extremities: Warm, dry, well-perfused. 2+ extremity edema unchanged. bilateral chronic erythema improved. hemosiderosis and cobblestoning consistent with chronic venous stasis. Neuro: awake alert oriented to hospital, oriented to basic situation, baseline L facial droop and LUE weakness unchanged Psych: normal behavior Results & Data Results & Data Vital Signs (Past 12 Hours) Vital Signs Temp Pulse Resp BP Pulse Ox O2 Del Method 05/27/23 14:53 36.7 C 77 18 130/72 95 Room Air 05/27/23 08:45 Room Air 05/27/23 08:29 77 18 93 Room Air 05/27/23 07:21 36.7 C 75 18 120/77 94 Room Air Laboratory Results 05/22/23 06:32 05/26/23 05:43 PG Care Time/CCT Total # of Minutes Spent Total Time Spent with Patient: Total time spent is greater than 50% in coordination of care (as documented) at patient's floor/unit and/or counseling patient: Coding Level of Care Code 47264 SUB INP/OBS CARE 2/35MIN Diagnoses Sepsis A41.9 Sepsis acute organ dysfunction status: unspecified Sepsis type: sepsis due to unspecified organism Cellulitis of right leg L03.115 Acute metabolic encephalopathy G93.41 History of DVT (deep vein thrombosis) Z86.718 Hypothyroidism E03.9 TRANSFER CAR OPERATOR DRIER (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) shunt status Z98.2 Seizure disorder G40.909 Congestive heart failure I50.9 Hypokalemia E87.6 Hypomagnesemia E83.42 Normocytic anemia D64.9 GERD without esophagitis K21.9 Chronic anticoagulation Z79.01 Depression F32.A History of benign brain tumor Z86.011 Morbid obesity with BMI of 45.0-49.9, adult E66.01; Z68.42 Abnormal brain MRI R90.89 UTI (urinary tract infection) due to Enterococcus N39.0; B95.2 Acute severe vertigo R42 Candidal intertrigo B37.2 (1) Sepsis Sepsis acute organ dysfunction status: unspecified Sepsis type: sepsis due to unspecified organism Qualified Code(s): A41.9 - Sepsis, unspecified organism
[2023-05-27] MEDS: FUROSEMIDE 20 MG TAB PO SCH (19:24)
--- NOTE | 2023-05-28 13:15 | Fluoroscopy Report ---
FL video swallow CLINICAL HISTORY: 52 years-old Female with r/o aspiration. Dysphagia with possible aspiration TECHNIQUE: Video fluoroscopic evaluation of swallowing was performed in the AP and lateral projection s by the speech pathology staff. The patient is fed varying consistencies of barium. FLUOROSCOPY TIME: 0.49 seconds. 872 images. 8.08 mGy COMPARISON STUDY: CTA neck 05/08/2023 FINDINGS: There is normal hyoid excursion and epiglottic deflection. No significant penetration or as piration identified. Swallowing function is within normal limits. IMPRESSION: 1. No aspiration identified. 2. Please see the speech pathologist report for detailed findings and recommendations. ACT 112: Negative or not required by law. Electronically signed by: Calvin Condon M.D. 05/28/2023 1:13 PM
--- NOTE | 2023-05-28 19:15 | Hospitalist Progress Note ---
Date of Service May 28, 2023 Assessment & Plan (1) Sepsis: Plan: present on admission 2nd RLE cellulitis - resolved blood cx's negative completed 7+ days of IV/PO abx she is off all abx therapy (2) Cellulitis of right leg: Plan: resolved has chronic lymphedema - would benefit from compression asked wound care to place one-layer knee-high tubigrip stockings has good pulses on examination (3) Acute metabolic encephalopathy: Plan: presented with such on day of admission presumed 2nd to sepsis/RLE cellulitis confusion resolved since the early portion of the admission has intermittently had lethargy/sleepiness and confusion most days, however, she is awake/alert/mentating/talkative cause of her intermittent lethargy is uncertain we have noted that when she stays up late or doesn't sleep well the next day she is more sleepy/lethargic head CT x 2 this admission neg for acute findings of note - we finally received CT head reports from [facility] as well as CT/MRI brain images via PACs radiology compared her outside/old CT head with the CTs this admission - largely unchanged MRI brain WITHOUT acute or chronic stroke most findings are chronic -- MRI here was compared to MRI brain done at [facility] 06/2022 (MRI images from 06/2022 are in PACS) 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 -- acute met encephalopathy from infection (suspected as main culprit); hospital delirium; subclinical seizures; TIA event; poor sleep at night; vs other EEG did not show seizure focus ; [id number] continue vimpat BID Repeat brain MRI 05/26 unchanged from previous Neurologist Dr. 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, recommended continued supportive care for recovery from infections, metabolic encephalopathy Good mental status, at baseline 05/27, 05/28 (4) History of DVT (deep vein thrombosis): Plan: Continue apixaban BID Has IVC filter in place (5) Hypothyroidism: Plan: Continue levothyroxine TSH 2.3 (6) FERMENTER (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) shunt status: Plan: placed in 03/2006 at [facility] records from that visit reviewed op note reviewed FERMENTER shunt is a Delta non-programmable unit - MR compatible FERMENTER shunt appears stable on CT and MRI (7) Seizure disorder: Plan: Continue lacosamide No seizures have been observed/reported per nursing EEG negative for seizure focus However - can't rule out subclinical seizures contributing to periods of confusion/altered MS (8) Congestive heart failure: Plan: Chronic diastolic heart failure Echo 02/27 with normal EF much of her LE edema looks like lymphedema which does not respond well to diuretics could have mild decompensated CHF thus diuresed with few doses IV lasix -seems to do well on every other day lasix 20 mg - resumed 05/28 (9) Hypokalemia: Plan: Replaced Resolved (10) Hypomagnesemia: Plan: replaced resolved (11) Normocytic anemia: Plan: ferritin 58 transferrin low-normal suspect she is Fe deficient s/p venofer 300mg IV x 3 doses earlier this admission etiology of low Fe?? fecal occult neg x 2 (03/29, 05/31) could be dietary - eats very poorly, skips meals, does not eat nutritious meals, etc. also still has menses. B12 level - mid 300s; will supplement is already on folate supplementation 1mg daily H/H stable today Fe studies noted - transferrin sat only 16% s/p another dose of venofer on 05/22 repeat h/h in 2-3 days for stability (12) GERD without esophagitis: Plan: cont PPI (13) Chronic anticoagulation: Plan: apixaban BID (14) Depression: Plan: cont prozac 20mg daily (15) History of benign brain tumor: Plan: left sided hemiplegia is presumably due to atrophy/encephalomalacia from her prior brain tumor resection (right sided thalamic astrocytoma per records) she also appears to have 2 meningiomas on her MRI brain -- 1. stable 1.7 cm left lateral calcified extra-axial lesion on image 16 series 8 which likely represents a meningioma. 2. probable meningioma of the falx cerebri anteriorly on image 15 measuring 8 mm. post-discharge she will need -- 1. neurology follow-up to follow seizure d/o, imaging, etc 2. neurosurgery where we refer her will depend on what town she is placed in - numerous referrals have been placed for various snfs in different locations repeat MRI unchanged 05/26 (16) Morbid obesity with BMI of 45.0-49.9, adult: Plan: BMI 48 (17) Abnormal brain MRI: Plan: initial MRI this admission showed thickening of the pachymeninges she does not have any h/o CSF leak or postural headaches the thickening of the pachymeninges is a nonspecific finding they recommend repeat MRI brain w/ contrast in about 2 weeks to ensure stability of the pachymeninges finding - MRI unchanged 05/26. See neuro consult 05/26. (18) UTI (urinary tract infection) due to Enterococcus: Plan: VRE s/p daptomycin x 7 days now off abx (19) Acute severe vertigo: Plan: had a 2 minute episode of spinning associated with double vision on 05/08/23. no tinnitus or hearing changes. spontaneously resolved after the 2 minutes. if this was a TIA event she is already on Eliquis BID + aspirin 81mg daily. repeat head CT on 05/[address] 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 echo late fall 2022 was wnl. MRI brain was obtained after records from [facility] in [place] arrived. She had her shunt placed there in 2006. FERMENTER shunt is a non-programmable Delta device which is MRI compatible. NO acute or chronic CVA seen but obviously numerous findings related to her prior brain tumor resection. was this a TIA event? if yes - cont asa, Eliquis (20) Candidal intertrigo: Plan: SEVERE cont miconazole powder diflucan 100mg daily x 7 days -- day #5 today QTc on last EKG was wnl Continue wound care, reviewed photo 05/27 Plan Had choking episode on corn witnessed this week. ST evaluated, discussed with her today, VFSS was completely normal. L ankle/foot pain 05/28 - exam normal. treating with ice/apap. reassess, further evaluation if persisting. had been a resident of [facility] but family asks that she not return to that facility. By report was living independently for years prior to going into [facility]. numerous referrals are pending for SNF placement but most places do not have beds at the present time. Admission and Anticipated Discharge Date Admission Date: May 03, 2023 Subjective Cassy is awake, seen in AM States L foot/ankle hurts. Better with ice and APAP. Can't recall injuring it. Physical Exam Physical Exam: PHYSICAL EXAMINATION Last 24h vital signs reviewed, see documentation in flowsheet General: awake and alert, watching TV HEENT: Normocephalic, atraumatic, pupils round and equal, sclerae anicteric, no conjunctival injection, moist mucus membranes. Lungs: Normal respiratory effort. Clear to auscultation bilaterally. No RRW Heart: Regular rate and rhythm, no murmurs. No JVD Abdomen: Soft, nontender, nondistended. Bowel sounds present. Extremities: Warm, dry, well-perfused. 2+ extremity edema unchanged. bilateral chronic erythema improved. hemosiderosis and cobblestoning consistent with chronic venous stasis. L ankle and foot - no deformity, no ecchymosis or erythema, nontender to palp ation and ROM Neuro: awake alert oriented to hospital, oriented to basic situation, baseline L facial droop and LUE weakness unchanged Psych: normal behavior Results & Data Results & Data Vital Signs (Past 12 Hours) Vital Signs Temp Pulse Resp BP Pulse Ox O2 Del Method 05/28/23 08:47 36.3 C L 78 18 134/82 94 Room Air 05/28/23 08:00 Room Air PG Care Time/CCT Total # of Minutes Spent Total Time Spent with Patient: Total time spent is greater than 50% in coordination of care (as documented) at patient's floor/unit and/or counseling patient: Coding Level of Care Code 71671 SUB INP/OBS CARE 25MIN Diagnoses Sepsis A41.9 Sepsis acute organ dysfunction status: unspecified Sepsis type: sepsis due to unspecified organism Cellulitis of right leg L03.115 Acute metabolic encephalopathy G93.41 History of DVT (deep vein thrombosis) Z86.718 Hypothyroidism E03.9 FERMENTER (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) shunt status Z98.2 Seizure disorder G40.909 Congestive heart failure I50.9 Hypokalemia E87.6 Hypomagnesemia E83.42 Normocytic anemia D64.9 GERD without esophagitis K21.9 Chronic anticoagulation Z79.01 Depression F32.A History of benign brain tumor Z86.011 Morbid obesity with BMI of 45.0-49.9, adult E66.01; Z68.42 Abnormal brain MRI R90.89 UTI (urinary tract infection) due to Enterococcus N39.0; B95.2 Acute severe vertigo R42 Candidal intertrigo B37.2 (1) Sepsis Sepsis acute organ dysfunction status: unspecified Sepsis type: sepsis due to unspecified organism Qualified Code(s): A41.9 - Sepsis, unspecified organism
--- NOTE | 2023-05-29 16:57 | Hospitalist Progress Note ---
Date of Service May 29, 2023 Assessment & Plan (1) Sepsis: Plan: present on admission 2nd RLE cellulitis - resolved blood cx's negative completed 7+ days of IV/PO abx she is off all abx therapy (2) Cellulitis of right leg: Plan: resolved has chronic lymphedema - would benefit from compression, cont one-layer knee- high tubigrip stockings (3) Acute metabolic encephalopathy: Plan: presented with such on day of admission presumed 2nd to sepsis/RLE cellulitis confusion resolved since the early portion of the admission has intermittently had lethargy/sleepiness and confusion most days, however, she is awake/alert/mentating/talkative cause of her intermittent lethargy is uncertain we have noted that when she stays up late or doesn't sleep well the next day she is more sleepy/lethargic head CT x 2 this admission neg for acute findings of note - we finally received CT head reports from [facility] as well as CT/MRI brain images via PACs radiology compared her outside/old CT head with the CTs this admission - largely unchanged MRI brain WITHOUT acute or chronic stroke most findings are chronic -- MRI here was compared to MRI brain done at [facility] 06/2022 (MRI images from 06/2022 are in PACS) 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 -- acute met encephalopathy from infection (suspected as main culprit); hospital delirium; subclinical seizures; TIA event; poor sleep at night; vs other EEG did not show seizure focus ; [id number] continue vimpat BID Repeat brain MRI 05/26 unchanged from previous Neurologist Dr. 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 shunt is a Delta non-programmable unit - MR compatible 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 shunt appears stable on CT and MRI (7) Seizure disorder: Plan: Continue lacosamide No seizures have been observed/reported per nursing EEG negative for seizure focus However - can't rule out subclinical seizures contributing to periods of confusion/altered MS (8) Congestive heart failure: Plan: Chronic diastolic heart failure Echo 02/27 with normal EF much of her LE edema looks like lymphedema which does not respond well to diuretics could have mild decompensated CHF thus diuresed with few doses IV lasix -seems to do well on every other day lasix 20 mg - resumed 05/28 (9) Hypokalemia: Plan: Replaced Resolved (10) Hypomagnesemia: Plan: replaced resolved (11) Normocytic anemia: Plan: ferritin 58 transferrin low-normal suspect she is Fe deficient s/p venofer 300mg IV x 3 doses earlier this admission and another dose 05/22 etiology of low Fe?? fecal occult neg x 2 (03/29, 05/31) could be dietary - eats very poorly, skips meals, does not eat nutritious meals, etc. also still has menses. B12 level - mid 300s; will supplement is already on folate supplementation 1mg daily CBC in am (12) GERD without esophagitis: Plan: cont PPI (13) Chronic anticoagulation: Plan: apixaban BID (14) Depression: Plan: cont prozac 20mg daily (15) History of benign brain tumor: Plan: left sided hemiplegia is presumably due to atrophy/encephalomalacia from her prior brain tumor resection (right sided thalamic astrocytoma per records) she also appears to have 2 meningiomas on her MRI brain -- 1. stable 1.7 cm left lateral calcified extra-axial lesion on image 16 series 8 which likely represents a meningioma. 2. probable meningioma of the falx cerebri anteriorly on image 15 measuring 8 mm. post-discharge she will need -- 1. neurology follow-up to follow seizure d/o, imaging, etc 2. neurosurgery where we refer her will depend on what town she is placed in - numerous referrals have been placed for various snfs in different locations repeat MRI unchanged 05/26 (16) Morbid obesity with BMI of 45.0-49.9, adult: Plan: BMI 48 (17) Abnormal brain MRI: Plan: initial MRI this admission showed thickening of the pachymeninges she does not have any h/o CSF leak or postural headaches the thickening of the pachymeninges is a nonspecific finding they recommended repeat MRI brain w/ contrast in about 2 weeks to ensure stability of the pachymeninges finding - MRI unchanged 05/26. See neuro consult 05/26. (18) UTI (urinary tract infection) due to Enterococcus: Plan: VRE s/p daptomycin x 7 days now off abx (19) Acute severe vertigo: Plan: had a 2 minute episode of spinning associated with double vision on 05/08/23. no tinnitus or hearing changes. spontaneously resolved after the 2 minutes. if this was a TIA event she is already on Eliquis BID + aspirin 81mg daily. repeat head CT on 05/[address] 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 echo late fall 2022 was wnl. MRI brain was obtained after records from [facility] in [place] arrived. She had her shunt placed there in 2006. 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 shunt is a non-programmable Delta device which is MRI compatible. NO acute or chronic CVA seen but obviously numerous findings related to her prior brain tumor resection. was this a TIA event? if yes - cont asa, Eliquis (20) Candidal intertrigo: Plan: SEVERE cont miconazole powder diflucan 100mg daily x 7 days -- day #7 today QTc on last EKG was wnl Continue wound care, reviewed photo 05/27 Plan Had choking episode on corn witnessed this week. ST evaluated, discussed with her today, VFSS was completely normal. L ankle/foot pain 05/28 - exam normal. resolved by 05/29 AM labs ordered - CBC BMP AM cortisol- CRP, ESR - previously elevated unclear why. had been a resident of [facility] but family asks that she not return to that facility. By report was living independently for years prior to going into [facility]. numerous referrals are pending for SNF placement but most places do not have beds at the present time. Admission and Anticipated Discharge Date Admission Date: May 03, 2023 Subjective sleeping midday, woke up to voice but remained sleepy, said she was awake all night again L ankle pain resolved - no pain today Physical Exam Physical Exam: PHYSICAL EXAMINATION Last 24h vital signs reviewed, see documentation in flowsheet General: sleeping HEENT: Normocephalic, atraumatic, pupils round and equal, sclerae anicteric, no conjunctival injection, moist mucus membranes. Lungs: Normal respiratory effort. Clear to auscultation bilaterally. No RRW Heart: Regular rate and rhythm, no murmurs. No JVD Abdomen: Soft, nontender, nondistended. Bowel sounds present. Extremities: Warm, dry, well-perfused. 2+ extremity edema unchanged. bilateral chronic erythema improved. hemosiderosis and cobblestoning consistent with chronic venous stasis. L ankle and foot - no deformity, no ecchymosis or erythema, nontender to palpation and ROM - unchanged, normal exam today Neuro: sleepy but woke up to voice - awake alert oriented to hospital, oriented to basic situation, baseline L facial droop and LUE weakness unchanged Psych: flat affect, normal behavior Results & Data Results & Data Vital Signs (Past 12 Hours) Vital Signs Temp Pulse Resp BP Pulse Ox O2 Del Method 05/29/23 15:02 36.9 C 76 17 126/72 94 Room Air 05/29/23 08:01 72 17 94 Room Air 05/29/23 08:00 Room Air 05/29/23 07:33 36.7 C 71 16 127/72 92 Room Air PG Care Time/CCT Total # of Minutes Spent Total Time Spent with Patient: Total time spent is greater than 50% in coordination of care (as documented) at patient's floor/unit and/or counseling patient: Coding Level of Care Code 53841 SUB INP/OBS CARE 2/35MIN Diagnoses Sepsis A41.9 Sepsis acute organ dysfunction status: unspecified Sepsis type: sepsis due to unspecified organism Cellulitis of right leg L03.115 Acute metabolic encephalopathy G93.41 History of DVT (deep vein thrombosis) Z86.718 Hypothyroidism E03.9 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 (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) shunt status Z98.2 Seizure disorder G40.909 Congestive heart failure I50.9 Hypokalemia E87.6 Hypomagnesemia E83.42 Normocytic anemia D64.9 GERD without esophagitis K21.9 Chronic anticoagulation Z79.01 Depression F32.A History of benign brain tumor Z86.011 Morbid obesity with BMI of 45.0-49.9, adult E66.01; Z68.42 Abnormal brain MRI R90.89 UTI (urinary tract infection) due to Enterococcus N39.0; B95.2 Acute severe vertigo R42 Candidal intertrigo B37.2 (1) Sepsis Sepsis acute organ dysfunction status: unspecified Sepsis type: sepsis due to unspecified organism Qualified Code(s): A41.9 - Sepsis, unspecified organism
[2023-05-30 08:00] LABS: Hematocrit (blood only) 32.7 % (37.0-47.0); Hemoglobin 9.8 g/dl (12.0-16.0); Mean Corpuscular Hemoglobin 24.8 pg (25.0-34.0); Mean Corpuscular Volume 82.8 fL (80.0-100.0); Mean Platelet Volume 10.2 fL (9.4-12.4); Platelet Count 208 K/uL (130-400); RDW Coefficient of Variation 24.9 % (11.5-14.5); RDW Standard Deviation 72.6 fL (36.4-46.3); Red Blood Count 3.95 M/uL (4.20-5.40)
[2023-05-30 08:20] LABS: BUN Creatinine Ratio 22.2 (10-20); C Reactive Protein 1.83 mg/dl (0-0.5); Calcium 8.8 mg/dl (8.6-10.3); Creatinine Clr Calc Pharmacy 126.5 ml/min; Magnesium 1.8 mg/dl (1.7-2.4); Potassium 3.9 mmol/L (3.5-5.1)
--- NOTE | 2023-05-30 18:29 | Hospitalist Progress Note ---
Date of Service May 30, 2023 Assessment & Plan (1) Adrenal insufficiency: Plan: Labs review todat, CBC, BMP unremarkable and CRP improved down to 1.83 I ordered AM cortisol and was low at 4 at 7:32 AM Will obtain cosyntropin stim test Could be adrenally insufficient (2) Sepsis: Plan: present on admission 2nd RLE cellulitis - resolved blood cx's negative completed 7+ days of IV/PO abx she is off all abx therapy (3) Cellulitis of right leg: Plan: resolved has chronic lymphedema - would benefit from compression, cont one-layer knee- high tubigrip stockings (4) Acute metabolic encephalopathy: Plan: presented with such on day of admission presumed 2nd to sepsis/RLE cellulitis confusion resolved since the early portion of the admission has intermittently had lethargy/sleepiness and confusion most days, however, she is awake/alert/mentating/talkative cause of her intermittent lethargy is uncertain we have noted that when she stays up late or doesn't sleep well the next day she is more sleepy/lethargic head CT x 2 this admission neg for acute findings of note - we [facility] as CT/MRI brain images via [facility] radiology compared her outside/old CT head with the CTs this admission - largely unchanged MRI brain WITHOUT acute or chronic stroke most findings are chronic -- MRI here was [facility] (MRI images from 06/2022 are in PACS) 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 -- acute met encephalopathy from infection (suspected as main culprit); hospital delirium; subclinical seizures; TIA event; poor sleep at night; vs other EEG did not show seizure focus ; [id number] continue vimpat BID Repeat brain MRI 05/26 unchanged from previous Neurologist Dr. 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, recommended continued supportive care for recovery from infections, metabolic encephalopathy Good mental status, at baseline 05/27-05/30 though continues day-night reversals (5) History of DVT (deep vein thrombosis): Plan: Continue apixaban BID Has IVC filter in place (6) Hypothyroidism: Plan: Continue levothyroxine TSH 2.3 (7) FRONT END JAVA DEVELOPER (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) shunt status: Plan: placed in 03/2006 at [facility] records from that visit reviewed op note reviewed FRONT END JAVA DEVELOPER shunt is a Delta non-programmable unit - MR compatible FRONT END JAVA DEVELOPER shunt appears stable on CT and MRI (8) Seizure disorder: Plan: Continue lacosamide No seizures have been observed/reported per nursing EEG negative for seizure focus However - can't rule out subclinical seizures contributing to periods of confusion/altered MS (9) Congestive heart failure: Plan: Chronic diastolic heart failure Echo 02/27 with normal EF much of her LE edema looks like lymphedema which does not respond well to diuretics could have mild decompensated CHF thus diuresed with few doses IV lasix -seems to do well on every other day lasix 20 mg - resumed 05/28 - K/Cr wnl 05/30 (10) Hypokalemia: Plan: Replaced Resolved (11) Hypomagnesemia: Plan: replaced resolved (12) Normocytic anemia: Plan: ferritin 58 transferrin low-normal suspect she is Fe deficient s/p venofer 300mg IV x 3 doses earlier this admission and another dose 05/22 etiology of low Fe?? fecal occult neg x 2 (03/29, 05/31) could be dietary - eats very poorly, skips meals, does not eat nutritious meals, etc. also still has menses. B12 level - mid 300s; will supplement is already on folate supplementation 1mg daily CBC stable 05/30, Hct improved compared to early may (13) GERD without esophagitis: Plan: cont PPI (14) Chronic anticoagulation: Plan: apixaban BID (15) Depression: Plan: cont prozac 20mg daily (16) History of benign brain tumor: Plan: left sided hemiplegia is presumably due to atrophy/encephalomalacia from her prior brain tumor resection (right sided thalamic astrocytoma per records) she also appears to have 2 meningiomas on her MRI brain -- 1. stable 1.7 cm left lateral calcified extra-axial lesion on image 16 series 8 which likely represents a meningioma. 2. probable meningioma of the falx cerebri anteriorly on image 15 measuring 8 mm. post-discharge she will need -- 1. neurology follow-up to follow seizure d/o, imaging, etc 2. neurosurgery where we refer her will depend on what town she is placed in - numerous referrals have been placed for various snfs in different locations repeat MRI unchanged 05/26 (17) Morbid obesity with BMI of 45.0-49.9, adult: Plan: BMI 48 (18) Abnormal brain MRI: Plan: initial MRI this admission showed thickening of the pachymeninges she does not have any h/o CSF leak or postural headaches the thickening of the pachymeninges is a nonspecific finding they recommended repeat MRI brain w/ contrast in about 2 weeks to ensure stability of the pachymeninges finding - MRI unchanged 05/26. See neuro consult 05/26. (19) UTI (urinary tract infection) due to Enterococcus: Plan: VRE s/p daptomycin x 7 days now off abx (20) Acute severe vertigo: Plan: had a 2 minute episode of spinning associated with double vision on 05/08/23. no tinnitus or hearing changes. spontaneously resolved after the 2 minutes. if this was a TIA event she is already on Eliquis BID + aspirin 81mg daily. repeat head CT on 05/[address] 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 echo late fall 2022 was wnl. MRI brain was obtained after records from [facility] in [place] arrived. She had her shunt placed there in 2006. FRONT END JAVA DEVELOPER shunt is a non-programmable Delta device which is MRI compatible. NO acute or chronic CVA seen but obviously numerous findings related to her prior brain tumor resection. was this a TIA event? if yes - cont asa, Eliquis (21) Candidal intertrigo: Plan: SEVERE cont miconazole powder diflucan 100mg daily x 7 days -- day #7 today QTc on last EKG was wnl Continue wound care, reviewed photo 05/27 Plan Had choking episode on corn witnessed this week. ST evaluated, discussed with her today, VFSS was completely normal. L ankle/foot pain 05/28 - exam normal. resolved by 05/29 had been a resident of [facility] but family asks that she not return to that facility. By report was living independently for years prior to going into [facility]. numerous referrals are pending for SNF placement but most places do not have beds at the present time. Admission and Anticipated Discharge Date Admission Date: May 03, 2023 Subjective Cassy doing ok, no complaints, was sleeping again lunchtime, says she was awake at night again. No L ankle pain. Physical Exam 2 Physical Exam: PHYSICAL EXAMINATION Last 24h vital signs reviewed, see documentation in flowsheet General: sleeping, but awoke to voice exam unchanged 05/30 HEENT: Normocephalic, atraumatic, pupils round and equal, sclerae anicteric, no conjunctival injection, moist mucus membranes. Lungs: Normal respiratory effort. Clear to auscultation bilaterally. No RRW Heart: Regular rate and rhythm, no murmurs. No JVD Abdomen: Soft, nontender, nondistended. Bowel sounds present. Extremities: Warm, dry, well-perfused. 2+ extremity edema unchanged. bilateral chronic erythema improved. hemosiderosis and cobblestoning consistent with chronic venous stasis. L ankle and foot - no deformity, no ecchymosis or erythema, nontender to palpation and ROM - unchanged, normal exam 05/30 Neuro: sleepy but woke up to voice - awake alert oriented to hospital, oriented to basic situation, baseline L facial droop and LUE weakness unchanged Psych: flat affect, normal behavior Results & Data Results & Data Vital Signs (Past 12 Hours) Vital Signs Temp Pulse Resp BP BP Pulse Ox O2 Del Method 05/30/23 15:12 36.8 C 79 18 127/73 95 Room Air 05/30/23 08:00 Room Air 05/30/23 07:20 36.8 C 74 16 131/74 96 Room Air Laboratory Results 05/30/23 07:32 05/30/23 07:32 PG Care Time/CCT Total # of Minutes Spent Total Time Spent with Patient: Total time spent is greater than 50% in coordination of care (as documented) at patient's floor/unit and/or counseling patient: Coding Level of Care Code 36176 SUB INP/OBS CARE MIN Diagnoses Adrenal insufficiency E27.40 Sepsis A41.9 Sepsis acute organ dysfunction status: unspecified Sepsis type: sepsis due to unspecified organism Cellulitis of right leg L03.115 Acute metabolic encephalopathy G93.41 History of DVT (deep vein thrombosis) Z86.718 Hypothyroidism E03.9 FRONT END JAVA DEVELOPER (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) shunt status Z98.2 Seizure disorder G40.909 Congestive heart failure I50.9 Hypokalemia E87.6 Hypomagnesemia E83.42 Normocytic anemia D64.9 GERD without esophagitis K21.9 Chronic anticoagulation Z79.01 Depression F32.A History of benign brain tumor Z86.011 Morbid obesity with BMI of 45.0-49.9, adult E66.01; Z68.42 Abnormal brain MRI R90.89 UTI (urinary tract infection) due to Enterococcus N39.0; B95.2 Acute severe vertigo R42 Candidal intertrigo B37.2 (2) Sepsis Sepsis acute organ dysfunction status: unspecified Sepsis type: sepsis due to unspecified organism Qualified Code(s): A41.9 - Sepsis, unspecified organism
[2023-05-31] MEDS: COSYNTROPIN 250 MCG in SYRINGE 4 ML IV ONE (08:17)
--- NOTE | 2023-05-31 16:54 | Hospitalist Progress Note ---
Date of Service May 31, 2023 Assessment & Plan (1) Adrenal insufficiency: Plan: I ordered AM cortisol and was low at 4 at 7:32 AM obtained cosyntropin stim test 05/31 frustratingly, today's baseline cortisol not resulted but stim to peak of 24, 26 at 30 min, 60 min rules out adrenal insufficiency the low level at 7:30 am is related to her day/night reversal, anticipate it would have been normal range closer to lunchtime when she starts to wake up -acth, renin/caterina were drawn for completeness, pending (2) Daytime somnolence: Plan: Excessive daytime somnolence and day/night reversal. This has been a barrier to participation with therapies, efforts at rehab Overnight oximetry was normal so TERI unlikely Consider narcolepsy, however, its not possible to get a formal sleep study at this time. -continue melatonin HS. Hesitate to use anything more sedating because of risk of encephalopathy/delirium -continue prozac which has some efficacy for narcolepsy, bupriopion would be a good antidepressant adjunct for her however, lowers seizure threshold so contraindicated -trial modafanil - start with low dose 100 mg (3) Sepsis: Plan: present on admission 2nd RLE cellulitis - resolved blood cx's negative completed 7+ days of IV/PO abx (4) Cellulitis of right leg: Plan: resolved has chronic lymphedema - would benefit from compression, cont one-layer knee- high tubigrip stockings (5) Acute metabolic encephalopathy: Plan: presented with such on day of admission presumed 2nd to sepsis/RLE cellulitis confusion resolved since the early portion of the admission has intermittently had lethargy/sleepiness and confusion most days, however, she is awake/alert/mentating/talkative cause of her intermittent lethargy is uncertain we have noted that when she stays up late or doesn't sleep well the next day she is more sleepy/lethargic head CT x 2 this admission neg for acute findings of note - we finally received CT head reports from [facility] as well as CT/MRI brain images via PACs radiology compared her outside/old CT head with the CTs this admission - largely unchanged MRI brain WITHOUT acute or chronic stroke most findings are chronic -- MRI here was compared to MRI brain done at [facility] 06/2022 (MRI images from 06/2022 are in PACS) 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 -- acute met encephalopathy from infection (suspected as main culprit); hospital delirium; subclinical seizures; TIA event; poor sleep at night; vs other EEG did not show seizure focus ; [id number] continue vimpat BID Repeat brain MRI 05/26 unchanged from previous Neurologist Dr. Ashley consulted 05/26 - did not recommend LP at this time, unlikely GEM CUTTER infection, recommended continued supportive care for recovery from infections, metabolic encephalopathy Good mental status, at baseline 05/27-05/31 though continues day-night reversals (6) History of DVT (deep vein thrombosis): Plan: Continue apixaban BID Has IVC filter in place (7) Hypothyroidism: Plan: Continue levothyroxine TSH 2.3 (8) OUTSIDE PROPERTY AGENT (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) shunt status: Plan: placed in 03/2006 at [facility] records from that visit reviewed op note reviewed OUTSIDE PROPERTY AGENT shunt is a Delta non-programmable unit - MR compatible OUTSIDE PROPERTY AGENT shunt appears stable on CT and MRI (9) Seizure disorder: Plan: Continue lacosamide No seizures have been observed/reported per nursing EEG negative for seizure focus However - can't rule out subclinical seizures contributing to periods of confusion/altered MS (10) Congestive heart failure: Plan: Chronic diastolic heart failure Echo 02/27 with normal EF much of her LE edema looks like lymphedema which does not respond well to diuretics could have mild decompensated CHF thus diuresed with few doses IV lasix -seems to do well on every other day lasix 20 mg - resumed 05/28 - K/Cr wnl 05/30 (11) Hypokalemia: Plan: Replaced Resolved (12) Hypomagnesemia: Plan: replaced resolved (13) Normocytic anemia: Plan: ferritin 58 transferrin low-normal suspect she is Fe deficient s/p venofer 300mg IV x 3 doses earlier this admission and another dose 05/22 etiology of low Fe?? fecal occult neg x 2 (03/29, 05/31) could be dietary - eats very poorly, skips meals, does not eat nutritious meals, etc. also still has menses. B12 level - mid 300s; will supplement is already on folate supplementation 1mg daily CBC stable 05/30, Hct improved compared to early may (14) GERD without esophagitis: Plan: cont PPI (15) Chronic anticoagulation: Plan: apixaban BID (16) Depression: Plan: cont prozac 30mg daily (17) History of benign brain tumor: Plan: left sided hemiplegia is presumably due to atrophy/encephalomalacia from her prior brain tumor resection (right sided thalamic astrocytoma per records) she also appears to have 2 meningiomas on her MRI brain -- 1. stable 1.7 cm left lateral calcified extra-axial lesion on image 16 series 8 which likely represents a meningioma. 2. probable meningioma of the falx cerebri anteriorly on image 15 measuring 8 mm. post-discharge she will need -- 1. neurology follow-up to follow seizure d/o, imaging, etc 2. neurosurgery where we refer her will depend on what town she is placed in - numerous referrals have been placed for various snfs in different locations repeat MRI unchanged 05/26 (18) Morbid obesity with BMI of 45.0-49.9, adult: Plan: BMI 48 (19) Abnormal brain MRI: Plan: initial MRI this admission showed thickening of the pachymeninges she does not have any h/o CSF leak or postural headaches the thickening of the pachymeninges is a nonspecific finding they recommended repeat MRI brain w/ contrast in about 2 weeks to ensure stability of the pachymeninges finding --> MRI unchanged 05/26. See neuro consult 05/26. (20) UTI (urinary tract infection) due to Enterococcus: Plan: VRE s/p daptomycin x 7 days now off abx (21) Acute severe vertigo: Plan: had a 2 minute episode of spinning associated with double vision on 05/08/23. no tinnitus or hearing changes. spontaneously resolved after the 2 minutes. if this was a TIA event she is already on Eliquis BID + aspirin 81mg daily. repeat head CT on 05/[address] CTA head/neck - ??left FINANCE MGR stenosis otherwise both studies unremarkable. echo late fall 2022 was wnl. MRI brain was obtained after records from [facility] in [place] arrived. She had her shunt placed there in 2006. OUTSIDE PROPERTY AGENT shunt is a non-programmable Delta device which is MRI compatible. NO acute or chronic CVA seen but obviously numerous findings related to her prior brain tumor resection. was this a TIA event? if yes - cont asa, Eliquis (22) Candidal intertrigo: Plan: completed 7 days fluconazole 05/30 Plan Had choking episode on corn witnessed. ST evaluated, VFSS was completely normal. Daytime somnolence and body positioning play a role. had been a resident of [facility] but family asks that she not return to that facility. By report was living independently for years prior to going into [facility]. numerous referrals are pending for SNF placement but most places do not have beds at the present time. Admission and Anticipated Discharge Date Admission Date: May 03, 2023 Subjective awake this morning because she is getting blood draws for cosyntropin stim test she's willing to do the blood draws for this but its hard because she's a difficult stick Physical Exam Physical Exam: PHYSICAL EXAMINATION Last 24h vital signs reviewed, see documentation in flowsheet General: awake and alert HEENT: Normocephalic, atraumatic, pupils round and equal, sclerae anicteric, no conjunctival injection, moist mucus membranes. Lungs: Normal respiratory effort. Clear to auscultation bilaterally. No RRW Heart: Regular rate and rhythm, no murmurs. No JVD Abdomen: Soft, nontender, nondistended. Bowel sounds present. Extremities: Warm, dry, well-perfused. 2+ extremity edema unchanged. bilateral chronic erythema. hemosiderosis and cobblestoning consistent with chronic venous stasis. Neuro: awake and alert, oriented to basic situation, baseline L facial droop and LUE weakness unchanged Psych: flat affect, normal behavior Results & Data Results & Data Vital Signs (Past 12 Hours) Vital Signs Temp Pulse Resp BP BP Pulse Ox O2 Del Method 05/31/23 15:29 36.9 C 97 H 18 119/74 95 Room Air 05/31/23 07:23 36.4 C L 74 20 121/72 94 Room Air PG Care Time/CCT Total # of Minutes Spent Total Time Spent with Patient: Total time spent is greater than 50% in coordination of care (as documented) at patient's floor/unit and/or counseling patient: Coding Level of Care Code 71447 SUB INP/OBS CARE 2/35MIN Diagnoses Adrenal insufficiency E27.40 Daytime somnolence R40.0 Sepsis A41.9 Sepsis acute organ dysfunction status: unspecified Sepsis type: sepsis due to unspecified organism Cellulitis of right leg L03.115 Acute metabolic encephalopathy G93.41 History of DVT (deep vein thrombosis) Z86.718 Hypothyroidism E03.9 OUTSIDE PROPERTY AGENT (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) shunt status Z98.2 Seizure disorder G40.909 Congestive heart failure I50.9 Hypokalemia E87.6 Hypomagnesemia E83.42 Normocytic anemia D64.9 GERD without esophagitis K21.9 Chronic anticoagulation Z79.01 Depression F32.A History of benign brain tumor Z86.011 Morbid obesity with BMI of 45.0-49.9, adult E66.01; Z68.42 Abnormal brain MRI R90.89 UTI (urinary tract infection) due to Enterococcus N39.0; B95.2 Acute severe vertigo R42 Candidal intertrigo B37.2 (3) Sepsis Sepsis acute organ dysfunction status: unspecified Sepsis type: sepsis due to unspecified organism Qualified Code(s): A41.9 - Sepsis, unspecified organism
[2023-06-01] MEDS: FLUoxetine HCL 10 MG CAP PO SCH (09:06)
[2023-06-01] MEDS: modafiniL 100 MG TAB PO SCH (09:14)
--- NOTE | 2023-06-01 15:17 | Hospitalist Progress Note ---
Date of Service June 01, 2023 Assessment & Plan (1) Daytime somnolence: Plan: Excessive daytime somnolence and day/night reversal. This has been a barrier to participation with therapies, efforts at rehab Overnight oximetry was normal so TERI unlikely Consider narcolepsy, however, its not possible to get a formal sleep study at this time. -continue melatonin HS. Hesitate to use anything more sedating because of risk of encephalopathy/delirium -continue prozac which has some efficacy for narcolepsy, bupriopion would be a good antidepressant adjunct for her however, lowers seizure threshold so contraindicated -trial modafanil - start with low dose 100 mg - seems to be responding well to this so far, has been awake and alert all day (2) Sepsis: Plan: present on admission 2nd RLE cellulitis - resolved blood cx's negative completed 7+ days of IV/PO abx (3) Cellulitis of right leg: Plan: resolved has chronic lymphedema - would benefit from compression, cont one-layer knee- high tubigrip stockings (4) Acute metabolic encephalopathy: Plan: presented with such on day of admission presumed 2nd to sepsis/RLE cellulitis confusion resolved since the early portion of the admission has intermittently had lethargy/sleepiness and confusion most days, however, she is awake/alert/mentating/talkative cause of her intermittent lethargy is uncertain we have noted that when she stays up late or doesn't sleep well the next day she is more sleepy/lethargic head CT x 2 this admission neg for acute findings of note - we finally received CT head reports from [facility] as well as CT/MRI brain images via PACs radiology compared her outside/old CT head with the CTs this admission - largely unchanged MRI brain WITHOUT acute or chronic stroke most findings are chronic -- MRI here was compared to MRI brain done at [facility] 06/2022 (MRI images from 06/2022 are in PACS) 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 -- acute met encephalopathy from infection (suspected as main culprit); hospital delirium; subclinical seizures; TIA event; poor sleep at night; vs other EEG did not show seizure focus ; [id number] continue vimpat BID Repeat brain MRI 05/26 unchanged from previous Neurologist Dr. Ashley consulted 05/26 - did not recommend LP at this time, unlikely RFID SYSTEMS ARCHITECT infection, recommended continued supportive care for recovery from infections, metabolic encephalopathy Good mental status, at baseline 05/27-05/31 though continues day-night reversals (5) History of DVT (deep vein thrombosis): Plan: Continue apixaban BID Has IVC filter in place (6) Hypothyroidism: Plan: Continue levothyroxine TSH 2.3 (7) CLINICAL DOCUMENT IMPROVEMENT EDUCATOR (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) shunt status: Plan: placed in 03/2006 at [facility] records from that visit reviewed op note reviewed CLINICAL DOCUMENT IMPROVEMENT EDUCATOR shunt is a Delta non-programmable unit - MR compatible CLINICAL DOCUMENT IMPROVEMENT EDUCATOR shunt appears stable on CT and MRI (8) Seizure disorder: Plan: Continue lacosamide No seizures have been observed/reported per nursing EEG negative for seizure focus However - can't rule out subclinical seizures contributing to periods of confusion/altered MS (9) Congestive heart failure: Plan: Chronic diastolic heart failure Echo 02/27 with normal EF much of her LE edema looks like lymphedema which does not respond well to diuretics could have mild decompensated CHF thus diuresed with few doses IV lasix -seems to do well on every other day lasix 20 mg - resumed 05/28 - K/Cr wnl 05/30 (10) Hypokalemia: Plan: Replaced Resolved (11) Hypomagnesemia: Plan: replaced resolved (12) Normocytic anemia: Plan: ferritin 58 transferrin low-normal suspect she is Fe deficient s/p venofer 300mg IV x 3 doses earlier this admission and another dose 05/22 etiology of low Fe?? fecal occult neg x 2 (03/29, 05/31) could be dietary - eats very poorly, skips meals, does not eat nutritious meals, etc. also still has menses. B12 level - mid 300s; will supplement is already on folate supplementation 1mg daily CBC stable 05/30, Hct improved compared to early may (13) GERD without esophagitis: Plan: cont PPI (14) Chronic anticoagulation: Plan: apixaban BID (15) Depression: Plan: cont prozac 30mg daily (16) History of benign brain tumor: Plan: left sided hemiplegia is presumably due to atrophy/encephalomalacia from her prior brain tumor resection (right sided thalamic astrocytoma per records) she also appears to have 2 meningiomas on her MRI brain -- 1. stable 1.7 cm left lateral calcified extra-axial lesion on image 16 series 8 which likely represents a meningioma. 2. probable meningioma of the falx cerebri anteriorly on image 15 measuring 8 mm. post-discharge she will need -- 1. neurology follow-up to follow seizure d/o, imaging, etc 2. neurosurgery where we refer her will depend on what town she is placed in - numerous referrals have been placed for various snfs in different locations repeat MRI unchanged 05/26 (17) Morbid obesity with BMI of 45.0-49.9, adult: Plan: BMI 48 (18) Abnormal brain MRI: Plan: initial MRI this admission showed thickening of the pachymeninges she does not have any h/o CSF leak or postural headaches the thickening of the pachymeninges is a nonspecific finding they recommended repeat MRI brain w/ contrast in about 2 weeks to ensure stability of the pachymeninges finding --> MRI unchanged 05/26. See neuro consult 05/26. (19) UTI (urinary tract infection) due to Enterococcus: Plan: VRE s/p daptomycin x 7 days now off abx (20) Acute severe vertigo: Plan: had a 2 minute episode of spinning associated with double vision on 05/08/23. no tinnitus or hearing changes. spontaneously resolved after the 2 minutes. if this was a TIA event she is already on Eliquis BID + aspirin 81mg daily. repeat head CT on 05/[address] CTA head/neck - ??left TRAINING PROFESSIONAL stenosis otherwise both studies unremarkable. echo late fall 2022 was wnl. MRI brain was obtained after records from [facility] in [place] arrived. She had her shunt placed there in 2006. CLINICAL DOCUMENT IMPROVEMENT EDUCATOR shunt is a non-programmable Delta device which is MRI compatible. NO acute or chronic CVA seen but obviously numerous findings related to her prior brain tumor resection. was this a TIA event? if yes - cont asaAndrea (21) Candidal intertrigo: Plan: completed 7 days fluconazole 05/30 Plan AM cortisol was low at 4 at 7:32 AM obtained cosyntropin stim test 05/31 frustratingly, baseline cortisol not resulted but stim to peak of 24, 26 at 30 min, 60 min rules out adrenal insufficiency the low level at 7:30 am is related to her day/night reversal, anticipate it would have been normal range closer to lunchtime when she starts to wake up -acth, renin/caterina were drawn for completeness, pending Had choking episode on corn witnessed. ST evaluated, VFSS was completely normal. Daytime somnolence and body positioning play a role. had been a resident of [facility] but family asks that she not return to that facility. By report was living independently for years prior to going into [facility]. numerous referrals are pending for SNF placement but most places do not have beds at the present time. Admission and Anticipated Discharge Date Admission Date: May 03, 2023 Subjective Seen x 2 today. Was awake and finishing a bed bath with nursing staff this am, had been awake since breakfast. In afternoon I peeked in and she was awake alert watching TV and using phone. Main complaint this AM was itching above buttocks. Physical Exam 2 Physical Exam: PHYSICAL EXAMINATION Last 24h vital signs reviewed, see documentation in flowsheet General: awake and alert HEENT: Normocephalic, atraumatic, pupils round and equal, sclerae anicteric, no conjunctival injection, moist mucus membranes. Lungs: Normal respiratory effort. Clear to auscultation bilaterally. No RRW Heart: Regular rate and rhythm, no murmurs. No JVD Abdomen: Soft, nontender, nondistended. Bowel sounds present. Extremities: Warm, dry, well-perfused. 2+ extremity edema unchanged. bilateral chronic erythema. hemosiderosis and cobblestoning consistent with chronic venous stasis. Neuro: VERY awake and alert, oriented to basic situation, baseline L facial droop and LUE weakness unchanged Psych: more normal affect, normal behavior Results & Data Results & Data Vital Signs (Past 12 Hours) Vital Signs Temp Pulse Resp BP Pulse Ox O2 Del Method 06/01/23 07:52 36.9 C 92 H 16 135/73 93 Room Air Laboratory Results 05/30/23 07:32 05/30/23 07:32 PG Care Time/CCT Total # of Minutes Spent Total Time Spent with Patient: Total time spent is greater than 50% in coordination of care (as documented) at patient's floor/unit and/or counseling patient: Coding Level of Care Code 77490 SUB INP/OBS CARE 05/01MIN Diagnoses Daytime somnolence R40.0 Sepsis A41.9 Sepsis acute organ dysfunction status: unspecified Sepsis type: sepsis due to unspecified organism Cellulitis of right leg L03.115 Acute metabolic encephalopathy G93.41 History of DVT (deep vein thrombosis) Z86.718 Hypothyroidism E03.9 CLINICAL DOCUMENT IMPROVEMENT EDUCATOR (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) shunt status Z98.2 Seizure disorder G40.909 Congestive heart failure I50.9 Hypokalemia E87.6 Hypomagnesemia E83.42 Normocytic anemia D64.9 GERD without esophagitis K21.9 Chronic anticoagulation Z79.01 Depression F32.A History of benign brain tumor Z86.011 Morbid obesity with BMI of 45.0-49.9, adult E66.01; Z68.42 Abnormal brain MRI R90.89 UTI (urinary tract infection) due to Enterococcus N39.0; B95.2 Acute severe vertigo R42 Candidal intertrigo B37.2 (2) Sepsis Sepsis acute organ dysfunction status: unspecified Sepsis type: sepsis due to unspecified organism Qualified Code(s): A41.9 - Sepsis, unspecified organism
[2023-06-01] MEDS: ALBUT/IPRATROP 3MG/0.5MG NEB 3 ML VIAL ONE (22:13)
[2023-06-01] MEDS: ALBUT/IPRATROP 3MG/0.5MG NEB 3 ML VIAL NEB ONE (22:13)
--- NOTE | 2023-06-02 18:56 | Hospitalist Progress Note ---
Date of Service June 02, 2023 Assessment & Plan (1) Daytime somnolence: Plan: Excessive daytime somnolence and day/night reversal. This has been a barrier to participation with therapies, efforts at rehab Overnight oximetry was normal so TERI unlikely Consider narcolepsy, however, its not possible to get a formal sleep study at this time. -continue melatonin HS. Hesitate to use anything more sedating because of risk of encephalopathy/delirium -continue prozac which has some efficacy for narcolepsy, bupriopion would be a good antidepressant adjunct for her however, lowers seizure threshold so contraindicated -trial modafanil - start with low dose 100 mg - seems to be responding very well to this so far, has been awake and alert all day last two days and spoke with her sister who thinks she has been better last 24h (2) Sepsis: Plan: present on admission 2nd RLE cellulitis - resolved blood cx's negative completed 7+ days of IV/PO abx (3) Cellulitis of right leg: Plan: resolved has chronic lymphedema - would benefit from compression, cont one-layer knee- high tubigrip stockings (4) Acute metabolic encephalopathy: Plan: presented with such on day of admission presumed 2nd to sepsis/RLE cellulitis confusion resolved since the early portion of the admission has intermittently had lethargy/sleepiness and confusion most days, however, she is awake/alert/mentating/talkative cause of her intermittent lethargy is uncertain we have noted that when she stays up late or doesn't sleep well the next day she is more sleepy/lethargic head CT x 2 this admission neg for acute findings of note - we finally received CT head reports from [facility] as well as CT/MRI brain images via PACs radiology compared her outside/old CT head with the CTs this admission - largely unchanged MRI brain WITHOUT acute or chronic stroke most findings are chronic -- MRI here was compared to MRI brain done at [facility] 06/2022 (MRI images from 06/2022 are in PACS) 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 -- acute met encephalopathy from infection (suspected as main culprit); hospital delirium; subclinical seizures; TIA event; poor sleep at night; vs other EEG did not show seizure focus ; [id number] continue vimpat BID Repeat brain MRI 05/26 unchanged from previous Neurologist Dr. Ashley consulted 2/19 - did not recommend LP at this time, unlikely INSPECTOR GOVERNMENT PROPERTY infection, recommended continued supportive care for recovery from infections, metabolic encephalopathy Good mental status, at baseline 05/27-06/02 has day-night reversals but potentially improving (5) History of DVT (deep vein thrombosis): Plan: Continue apixaban BID Has IVC filter in place (6) Hypothyroidism: Plan: Continue levothyroxine TSH 2.3 (7) SKIDDER RUNNER (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) shunt status: Plan: placed in 03/2006 at [facility] records from that visit reviewed op note reviewed SKIDDER RUNNER shunt is a Delta non-programmable unit - MR compatible SKIDDER RUNNER shunt appears stable on CT and MRI (8) Seizure disorder: Plan: Continue lacosamide No seizures have been observed/reported per nursing EEG negative for seizure focus However - can't rule out subclinical seizures contributing to periods of confusion/altered MS (9) Congestive heart failure: Plan: Chronic diastolic heart failure Echo 02/27 with normal EF much of her LE edema looks like lymphedema which does not respond well to diuretics could have mild decompensated CHF thus diuresed with few doses IV lasix -seems to do well on every other day lasix 20 mg - resumed 05/28 - K/Cr wnl 05/30 -AM BMP (10) Hypokalemia: Plan: Replaced Resolved (11) Hypomagnesemia: Plan: replaced resolved (12) Normocytic anemia: Plan: ferritin 58 transferrin low-normal suspect she is Fe deficient s/p venofer 300mg IV x 3 doses earlier this admission and another dose 05/22 etiology of low Fe?? fecal occult neg x 2 (03/29, 05/31) could be dietary - eats very poorly, skips meals, does not eat nutritious meals, etc. also still has menses. B12 level - mid 300s; will supplement is already on folate supplementation 1mg daily CBC stable 05/30, Hct improved compared to early may (13) GERD without esophagitis: Plan: cont PPI (14) Chronic anticoagulation: Plan: apixaban BID (15) Depression: Plan: cont prozac 30mg daily (16) History of benign brain tumor: Plan: left sided hemiplegia is presumably due to atrophy/encephalomalacia from her prior brain tumor resection (right sided thalamic astrocytoma per records) she also appears to have 2 meningiomas on her MRI brain -- 1. stable 1.7 cm left lateral calcified extra-axial lesion on image 16 series 8 which likely represents a meningioma. 2. probable meningioma of the falx cerebri anteriorly on image 15 measuring 8 mm. post-discharge she will need -- 1. neurology follow-up to follow seizure d/o, imaging, etc 2. neurosurgery where we refer her will depend on what town she is placed in - numerous referrals have been placed for various snfs in different locations repeat MRI unchanged 05/26 (17) Morbid obesity with BMI of 45.0-49.9, adult: Plan: BMI 48 (18) Abnormal brain MRI: Plan: initial MRI this admission showed thickening of the pachymeninges she does not have any h/o CSF leak or postural headaches the thickening of the pachymeninges is a nonspecific finding they recommended repeat MRI brain w/ contrast in about 2 weeks to ensure stability of the pachymeninges finding --> MRI unchanged 05/26. See neuro consult 05/26. (19) UTI (urinary tract infection) due to Enterococcus: Plan: VRE s/p daptomycin x 7 days now off abx (20) Acute severe vertigo: Plan: had a 2 minute episode of spinning associated with double vision on 05/08/23. no tinnitus or hearing changes. spontaneously resolved after the 2 minutes. if this was a TIA event she is already on Eliquis BID + aspirin 81mg daily. repeat head CT on 05/[address] CTA head/neck - ??left EQUIPMENT OPERATOR/LABORER/SUPERVISOR stenosis otherwise both studies unremarkable. echo late fall 2022 was wnl. MRI brain was obtained after records from [facility] in [place] arrived. She had her shunt placed there in 2006. SKIDDER RUNNER shunt is a non-programmable Delta device which is MRI compatible. NO acute or chronic CVA seen but obviously numerous findings related to her prior brain tumor resection. was this a TIA event? if yes - cont Andrea hayden (21) Candidal intertrigo: Plan: completed 7 days fluconazole 05/30 Plan AM cortisol was low at 4 at 7:32 AM obtained cosyntropin stim test 05/31 frustratingly, baseline cortisol not resulted but stim to peak of 24, 26 at 30 min, 60 min rules out adrenal insufficiency the low level at 7:30 am is related to her day/night reversal, anticipate it would have been normal range closer to lunchtime when she starts to wake up -acth, renin/caterina were drawn for completeness, pending Had choking episode on corn witnessed. ST evaluated, VFSS was completely normal. Daytime somnolence and body positioning play a role. -AM CBC BMP mag ordered Updated her sister Selin by phone 06/02 x 17 min had been a resident of [facility] but family asks that she not return to that facility. By report was living independently for years prior to going into [facility]. numerous referrals are pending for SNF placement but most places do not have beds at the present time. Admission and Anticipated Discharge Date Admission Date: May 03, 2023 Subjective Was awake and alert this morning, talkative, peeked in later in the afternoon and she was awake and watching TV Physical Exam 2 Physical Exam: PHYSICAL EXAMINATION Last 24h vital signs reviewed, see documentation in flowsheet General: awake and alert HEENT: Normocephalic, atraumatic, pupils round and equal, sclerae anicteric, no conjunctival injection, moist mucus membranes. Lungs: Normal respiratory effort. Clear to auscultation bilaterally. No RRW Heart: Regular rate and rhythm, no murmurs. No JVD Abdomen: Soft, nontender, nondistended. Bowel sounds present. Extremities: Warm, dry, well-perfused. 2+ extremity edema unchanged. bilateral chronic erythema. hemosiderosis and cobblestoning consistent with chronic venous stasis. Neuro: awake and alert, oriented to situation, baseline L facial droop less apparent today and LUE weakness unchanged Psych: more normal affect, normal behavior Results & Data Results & Data Vital Signs (Past 12 Hours) Vital Signs Temp Pulse Resp BP Pulse Ox O2 Del Method 06/02/23 15:28 37.1 C 80 16 135/69 95 Room Air 06/02/23 09:07 Room Air 06/02/23 07:18 36.7 C 76 16 152/82 H 93 Room Air Laboratory Results 05/30/23 07:32 05/30/23 07:32 PG Care Time/CCT Total # of Minutes Spent Total Time Spent with Patient: I personally spent: 35 minutes today on clinical care activities including: reviewing chart notes and vital signs examining and counseling the patient counseling the patient's family writing orders documentation Coding Level of Care Code 72414 SUB INP/OBS CARE 2/35MIN Diagnoses Daytime somnolence R40.0 Sepsis A41.9 Sepsis acute organ dysfunction status: unspecified Sepsis type: sepsis due to unspecified organism Cellulitis of right leg L03.115 Acute metabolic encephalopathy G93.41 History of DVT (deep vein thrombosis) Z86.718 Hypothyroidism E03.9 SKIDDER RUNNER (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) shunt status Z98.2 Seizure disorder G40.909 Congestive heart failure I50.9 Hypokalemia E87.6 Hypomagnesemia E83.42 Normocytic anemia D64.9 GERD without esophagitis K21.9 Chronic anticoagulation Z79.01 Depression F32.A History of benign brain tumor Z86.011 Morbid obesity with BMI of 45.0-49.9, adult E66.01; Z68.42 Abnormal brain MRI R90.89 UTI (urinary tract infection) due to Enterococcus N39.0; B95.2 Acute severe vertigo R42 Candidal intertrigo B37.2 (2) Sepsis Sepsis acute organ dysfunction status: unspecified Sepsis type: sepsis due to unspecified organism Qualified Code(s): A41.9 - Sepsis, unspecified organism
--- NOTE | 2023-06-03 19:14 | Hospitalist Progress Note ---
Date of Service June 03, 2023 Assessment & Plan (1) Daytime somnolence: Plan: extensive w/u done while hospitalized - EEG, CT head, MRI brain x 2, labs, Rx of UTI (x 2), etc despite such had continued with daytime sleepiness Dr Muro trialed her on modafanil 100mg daily in the event she has a form of narcolepsy or similar thus far seeming to tolerate it and having a favorable response thus, will continue for now will recommend referral to sleep medicine post-d/c for narcolepsy will need a 2-day sleep study (night and day) (2) Abnormal cortisol level: Plan: 4 but passed cosyntropin stim test await ACTH level (3) Dysphagia: Plan: passed video swallow earlier this admission normal diet allowed by speech therapy (4) Sepsis: Plan: present on admission 2nd RLE cellulitis - resolved blood cx's negative completed 7+ days of IV/PO abx she is off all abx therapy (5) Cellulitis of right leg: Plan: resolved has chronic lymphedema - would benefit from compression I asked wound care to place one-layer knee-high tubigrip stockings unfortunately she dislikes these and will not wear them consistently (6) Acute metabolic encephalopathy: Plan: presented with such on day of admission presumed 2nd to sepsis/RLE cellulitis confusion then resolved since the early portion of the admission has intermittently had lethargy/sleepiness and confusion most days, however, she is awake/alert/mentating/talkative cause of her intermittent lethargy is uncertain we have noted that when she stays up late or doesn't sleep well the next day she is more sleepy/lethargic head CT x 2 this admission neg for acute findings of note - we finally received CT head reports from [facility] as well as CT/MRI brain images via PACs spoke with radiology - they compared her outside/old CT head with the CTs this admission - largely unchanged MRI brain WITHOUT acute or chronic stroke most findings are chronic -- MRI here was compared to MRI brain done at [facility] 06/2022 (MRI images from 06/2022 are in PACS) 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 -- acute met encephalopathy from infection (suspected as main culprit); hospital delirium; subclinical seizures; TIA events; poor sleep at night; narcolepsy (see #1 above) vs other EEG did not show seizure focus ; [id number] continue vimpat BID repeat MRI brain 05/25/23 largely unchanged from her MRI brain done 2 weeks prior on 05/10/23 Dr Herson Ashley performed neurology consultation Dr Ashley does not believe 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 infection; LP not advised fluctuating mental status likely due to recent sepsis/UTI/metabolic factors in the setting of baseline, severe anatomical abnormalities of the brain (prior brain tumor resection on right, encephalomalacia, hygroma, etc) overall mentation improved again see #1 above (7) History of DVT (deep vein thrombosis): Plan: Continue apixaban BID Has IVC filter in place (8) Hypothyroidism: Plan: Continue levothyroxine TSH 2.3 (9) DIE CUT OPERATOR (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) shunt status: Plan: placed in 03/2006 at [facility] records from that visit reviewed op note reviewed DIE CUT OPERATOR shunt is a Delta non-programmable unit - MR compatible DIE CUT OPERATOR shunt appears stable on CT and MRIs (10) Seizure disorder: Plan: Continue lacosamide No seizures have been observed/reported per nursing EEG negative for seizure focus However - can't rule out subclinical seizures contributing to periods of confusion/altered MS (11) Congestive heart failure: Plan: Chronic diastolic heart failure Echo 02/27 with normal EF has been on QOD lasix but urine is quite concentrated and small in volume will place lasix on hold for now - use prn (12) Hypokalemia: Plan: Replaced Resolved (13) Hypomagnesemia: Plan: replaced resolved (14) Normocytic anemia: Plan: ferritin 58 transferrin low-normal suspect she has had Fe deficiency s/p venofer 300mg IV x 3 doses earlier this admission etiology of low Fe?? fecal occult neg x 2 (03/29, 05/31) could be dietary - eats very poorly, skips meals, does not eat nutritious meals, etc B12 level - mid 300s; supplementing is already on folate supplementation 1mg daily most recent H/H stable repeat Fe studies later in the admission with transferrin sat still only 16% s/p another dose of venofer on 05/22 (this is 4th dose for the entire stay) repeat h/h a few days ago again shows ongoing improvement with Hb near 10 (15) GERD without esophagitis: Plan: cont PPI reflux/aspiration precautions (16) Chronic anticoagulation: Plan: apixaban BID (17) Depression: Plan: cont prozac 20mg daily (18) History of benign brain tumor: Plan: left sided hemiplegia is presumably due to atrophy/encephalomalacia from her prior brain tumor resection (right sided thalamic astrocytoma per records) she also appears to have 2 meningiomas on her MRI brain -- 1. stable 1.7 cm left lateral calcified extra-axial lesion on image 16 series 8 which likely represents a meningioma. 2. probable meningioma of the falx cerebri anteriorly on image 15 measuring 8 mm. post-discharge she will need -- 1. neurology follow-up to follow seizure d/o, imaging, etc 2. neurosurgery where we refer her will depend on what town she is placed in - numerous referrals have been placed for various snfs in different locations (19) Morbid obesity with BMI of 45.0-49.9, adult: (20) Abnormal brain MRI: Plan: 05/10/23 brain MRI showed thickening of the pachymeninges she does not have any h/o CSF leak or postural headaches the thickening of the pachymeninges is a nonspecific finding -- could be dural thickening per radiology repeat MRI brain 05/25/23 with stable pachymeninges thus, likely a chronic finding appreciate neurology consultation & recs (21) UTI (urinary tract infection) due to Enterococcus: Plan: VRE, low colony count (20,000 CFU) s/p daptomycin x 7 days earlier this stay -- now off abx resolved (22) Acute severe vertigo: Plan: had a 2 minute episode of spinning associated with double vision on 05/08/23. no tinnitus or hearing changes. spontaneously resolved after the 2 minutes. if this was a TIA event she is already on Eliquis BID + aspirin 81mg daily. repeat head CT on 05/[address] CTA head/neck - ??left FLY WORKER stenosis otherwise both studies unremarkable. echo late fall 2022 was wnl. MRI brain was obtained after records from [facility] in [place] arrived. She had her shunt placed there in 2006. DIE CUT OPERATOR shunt is a non-programmable Delta device which is MRI compatible. NO acute or chronic CVA seen but obviously numerous findings related to her prior brain tumor resection. was this a brief TIA event? if yes - cont Andrea hayden (23) Candidal intertrigo: Plan: completed 7 day course of diflucan for such Plan had been a resident of [facility] but family asks that she not return to that facility. By report was living independently for years prior to going into [facility]. numerous referrals are pending for SNF placement but most places do not have beds at the present time. Dr Muro updated pt's sister Selin yesterday left arm itching - triamcinolone cream 0.5% - BID in thin amounts for 5-7 days eucerin cream BID Admission and Anticipated Discharge Date Admission Date: May 03, 2023 Subjective patient watching TV during the visit she states "I'm doing ok - ready to get out of here" complains of pruritic skin on left arm eating well today denies other complaints Review of Systems Review of Systems: cv - no chest pain pulm - "I"m wheezing" GI - no abd pain or N/V Physical Exam Physical Exam: gen - obese, NAD; awake/alert; with moving she has a "wheezing" sound mouth - MMM neck - no obvious JVD heart - RRR, s1 s2, no murmur; heart tones distant lungs - CTA b/l today; no end-exp wheeze, no stridor, no rales abd - soft NT BS+ ND ext - <1+ edema/lymphedema b/l; pulses 2+ b/l neuro - hemiplegia LUE/LLE with contracture of LUE; speech clear/fluent skin - stasis changes b/l shins; scratch cervantes on left arm with erythematous rash psych - awake, alert Results & Data Results & Data Vital Signs (Past 12 Hours) Vital Signs Temp Pulse Resp BP Pulse Ox O2 Del Method 06/03/23 16:04 36.8 C 78 18 152/75 H 96 Room Air 06/03/23 08:05 Room Air 06/03/23 07:25 36.7 C 78 16 116/67 94 Room Air PG Care Time/CCT Total # of Minutes Spent Total Time Spent with Patient: Total time spent is greater than 50% in coordination of care (as documented) at patient's floor/unit and/or counseling patient: Coding Level of Care Code 68387 SUB INP/OBS CARE 2/35MIN Diagnoses Daytime somnolence R40.0 Abnormal cortisol level R79.89 Dysphagia R13.10 Sepsis A41.9 Sepsis acute organ dysfunction status: unspecified Sepsis type: sepsis due to unspecified organism Cellulitis of right leg L03.115 Acute metabolic encephalopathy G93.41 History of DVT (deep vein thrombosis) Z86.718 Hypothyroidism E03.9 DIE CUT OPERATOR (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) shunt status Z98.2 Seizure disorder G40.909 Congestive heart failure I50.9 Hypokalemia E87.6 Hypomagnesemia E83.42 Normocytic anemia D64.9 GERD without esophagitis K21.9 Chronic anticoagulation Z79.01 Depression F32.A History of benign brain tumor Z86.011 Morbid obesity with BMI of 45.0-49.9, adult E66.01; Z68.42 Abnormal brain MRI R90.89 UTI (urinary tract infection) due to Enterococcus N39.0; B95.2 Acute severe vertigo R42 Candidal intertrigo B37.2 (4) Sepsis Sepsis acute organ dysfunction status: unspecified Sepsis type: sepsis due to unspecified organism Qualified Code(s): A41.9 - Sepsis, unspecified organism
[2023-06-03] MEDS: EUCERIN CR 120 GM JAR EXT SCH (21:44)
[2023-06-03] MEDS: TRIAMCINOLONE ACET 0.5% CR 15 GM TUBE EXT SCH (21:45)
[2023-06-04 10:02] LABS: Hematocrit (blood only) 35.7 % (37.0-47.0); Hemoglobin 10.4 g/dl (12.0-16.0)
[2023-06-04 10:34] LABS: Anion Gap 8 (3-11); Blood Urea Nitrogen 14 mg/dl (6-23); Calcium 8.7 mg/dl (8.6-10.3); Carbon Dioxide 24 mmol/L (21-32); Chloride 106 mmol/L (98-107); Creatinine Clr Calc Pharmacy 142.8 ml/min; Est GFR (African American) 127.2 ml/min; Est GFR (Non-African American) 109.7 ml/min; Glucose 110 mg/dl (70-99(Fasting)); Magnesium 1.7 mg/dl (1.7-2.4); Sodium 138 mmol/L (136-145)
[2023-06-04] MEDS: FLUTICASONE/VILANTEROL 100/25MCG 14 PUFFS/INHALER INH SCH (11:42)
--- NOTE | 2023-06-04 20:30 | Hospitalist Progress Note ---
Date of Service June 04, 2023 Assessment & Plan (1) Daytime somnolence: Plan: extensive w/u done while hospitalized - EEG, CT head, MRI brain x 2, labs, Rx of UTI (x 2), etc despite such had continued with daytime sleepiness Dr Muro trialed her on modafanil 100mg daily in the event she has a form of narcolepsy or similar thus far seeming to tolerate it and having a favorable response will continue for now will recommend referral to sleep medicine post-d/c for narcolepsy will need a 2-day sleep study (night and day) (2) Abnormal cortisol level: Plan: cortisol level = 4 but passed cosyntropin stim test and ACTH level returned normal no adrenal insufficiency (3) Dysphagia: Plan: passed video swallow earlier this admission normal diet allowed by speech therapy (4) Sepsis: Plan: present on admission 2nd RLE cellulitis - resolved blood cx's negative completed 7+ days of IV/PO abx (5) Cellulitis of right leg: Plan: resolved has chronic lymphedema - would benefit from compression I asked wound care to place one-layer knee-high tubigrip stockings unfortunately she dislikes these and will not wear them consistently (6) Acute metabolic encephalopathy: Plan: presented with such on day of admission presumed 2nd to sepsis/RLE cellulitis confusion then resolved since the early portion of the admission has intermittently had lethargy/sleepiness and confusion most days, however, she is awake/alert/mentating/talkative cause of her intermittent lethargy is uncertain we have noted that when she stays up late or doesn't sleep well the next day she is more sleepy/lethargic head CT x 2 this admission neg for acute findings of note - we finally received CT head reports from [facility] as well as CT/MRI brain images via PACs spoke with radiology - they compared her outside/old CT head with the CTs this admission - largely unchanged MRI brain WITHOUT acute or chronic stroke most findings are chronic -- MRI here was compared to MRI brain done at [facility] 06/2022 (MRI images from 06/2022 are in PACS) 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 -- acute met encephalopathy from infection (suspected as main culprit); hospital delirium; subclinical seizures; TIA events; poor sleep at night; narcolepsy (see #1 above) vs other EEG did not show seizure focus ; [id number] continue vimpat BID repeat MRI brain 05/25/23 largely unchanged from her MRI brain done 2 weeks prior on 05/10/23 Dr Herson Ashley performed neurology consultation Dr Ashley does not believe she has DIRECTOR OF CONTENT MARKETING infection; LP not advised fluctuating mental status likely due to recent sepsis/UTI/metabolic factors in the setting of baseline, severe anatomical abnormalities of the brain (prior brain tumor resection on right, encephalomalacia, hygroma, etc) overall mentation improved again see #1 above re: modafanil (7) History of DVT (deep vein thrombosis): Plan: Continue apixaban BID Has IVC filter in place (8) Hypothyroidism: Plan: Continue levothyroxine TSH 2.3 (9) DUST HANDLER (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) shunt status: Plan: placed in 03/2006 at [facility] records from that visit reviewed op note reviewed DUST HANDLER shunt is a Delta non-programmable unit - MR compatible DUST HANDLER shunt appears stable on CT and MRIs (10) Seizure disorder: Plan: Continue lacosamide No seizures have been observed/reported per nursing EEG negative for seizure focus However - can't rule out subclinical seizures contributing to periods of confusion/altered MS (11) Congestive heart failure: Plan: Chronic diastolic heart failure Echo 02/27 with normal EF has been on QOD lasix but urine was quite concentrated yesterday and small in volume lasix on hold for now - use prn (12) Hypokalemia: Plan: Replaced Resolved (13) Hypomagnesemia: Plan: replaced resolved (14) Normocytic anemia: Plan: ferritin 58 transferrin low-normal suspect she has had Fe deficiency s/p venofer 300mg IV x 3 doses earlier this admission etiology of low Fe?? fecal occult neg x 2 (03/29, 05/31) could be dietary - eats very poorly, skips meals, does not eat nutritious meals, etc B12 level - mid 300s; supplementing is already on folate supplementation 1mg daily most recent H/H stable repeat Fe studies later in the admission with transferrin sat still only 16% s/p another dose of venofer on 05/22 (this is 4th dose for the entire stay) repeat h/h today stable and continue to rise (Hb 10.4 today) (15) GERD without esophagitis: Plan: cont PPI reflux/aspiration precautions (16) Chronic anticoagulation: Plan: apixaban BID (17) Depression: Plan: cont prozac 20mg daily (18) History of benign brain tumor: Plan: left sided hemiplegia is presumably due to atrophy/encephalomalacia from her prior brain tumor resection (right sided thalamic astrocytoma per records) she also appears to have 2 meningiomas on her MRI brain -- 1. stable 1.7 cm left lateral calcified extra-axial lesion on image 16 series 8 which likely represents a meningioma. 2. probable meningioma of the falx cerebri anteriorly on image 15 measuring 8 mm. post-discharge she will need -- 1. neurology follow-up to follow seizure d/o, imaging, etc 2. neurosurgery where we refer her will depend on what town she is placed in - numerous referrals have been placed for various snfs in different locations (19) Morbid obesity with BMI of 45.0-49.9, adult: (20) Abnormal brain MRI: Plan: 05/10/23 brain MRI showed thickening of the pachymeninges she does not have any h/o CSF leak or postural headaches the thickening of the pachymeninges is a nonspecific finding -- could be dural thickening per radiology repeat MRI brain 05/25/23 with stable pachymeninges thus, likely a chronic finding appreciate neurology consultation & recs (21) UTI (urinary tract infection) due to Enterococcus: Plan: VRE, low colony count (20,000 CFU) s/p daptomycin x 7 days earlier this stay -- now off abx resolved (22) Acute severe vertigo: Plan: had a 2 minute episode of spinning associated with double vision on 05/08/23. no tinnitus or hearing changes. spontaneously resolved after the 2 minutes. if this was a TIA event she is already on Eliquis BID + aspirin 81mg daily. repeat head CT on 05/[address] CTA head/neck - ??left AUTOMATIC SEAMER stenosis otherwise both studies unremarkable. echo late fall 2022 was wnl. MRI brain was obtained after records from [facility] in [place] arrived. She had her shunt placed there in 2006. DUST HANDLER shunt is a non-programmable Delta device which is MRI compatible. NO acute or chronic CVA seen but obviously numerous findings related to her prior brain tumor resection. was this a brief TIA event? if yes - cont Andrea hayden (23) Candidal intertrigo: Plan: completed 7 day course of diflucan for such Plan had been a resident of [facility] but family asks that she not return to that facility. By report was living independently for years prior to going into [facility]. numerous referrals are pending for SNF placement but most places do not have beds at the present time. left arm itching - triamcinolone cream 0.5% - BID in thin amounts for 5-7 days eucerin cream BID much improved today Admission and Anticipated Discharge Date Admission Date: May 03, 2023 Subjective sleeping upon arrival no issues today per staff easily arousable denies any complaints "what's the plan?" she asks (re: disposition) left arm rash & itching improved today Review of Systems Review of Systems: CV - no chest pain pulm - "wheezing is better"; no dyspnea GI - no abd pain/nausea/emesis; moving bowels per staff Physical Exam Physical Exam: gen - obese, NAD mouth - MMM neck - no obvious JVD heart - RRR, s1 s2, no murmur lungs - CTA b/l today; no end-exp wheeze, no stridor, no rales abd - soft NT BS+ ND ext - ~1+ edema/lymphedema b/l; pulses 2+ b/l neuro - hemiplegia LUE/LLE with contracture of LUE; speech clear/fluent skin - stasis changes b/l shins; scratch cervantes on left arm with erythematous rash - improved today psych - awake, alert, no confusion musculo - no pain in any either knee with palpation Results & Data Results & Data Vital Signs (Past 12 Hours) Vital Signs Temp Pulse Resp BP Pulse Ox O2 Del Method 06/04/23 15:08 36.6 C 71 18 145/81 H 95 Room Air Laboratory Results Laboratory Results - last 24 hr 05/31/23 06/04/23 08:32 09:42 Hgb 10.4 L Hct 35.7 L Sodium 138 Potassium TNP Chloride 106 Carbon Dioxide 24 Anion Gap 8 BUN 14 Creatinine 0.50 L Est Cr Clr Drug Dosing 142.8 Est GFR ( Amer) 127.2 Est GFR (Non-Af Amer) 109.7 BUN/Creatinine Ratio 28.0 H Glucose 110 H Calcium 8.7 Magnesium 1.7 Renin Activity 2.78 Aldosterone 17 ACTH 17 PG Care Time/CCT Total # of Minutes Spent Total Time Spent with Patient: Total time spent is greater than 50% in coordination of care (as documented) at patient's floor/unit and/or counseling patient: Coding Level of Care Code 99317 SUB INP/OBS CARE 1/25MIN Diagnoses Daytime somnolence R40.0 Abnormal cortisol level R79.89 Dysphagia R13.10 Sepsis A41.9 Sepsis acute organ dysfunction status: unspecified Sepsis type: sepsis due to unspecified organism Cellulitis of right leg L03.115 Acute metabolic encephalopathy G93.41 History of DVT (deep vein thrombosis) Z86.718 Hypothyroidism E03.9 DUST HANDLER (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) shunt status Z98.2 Seizure disorder G40.909 Congestive heart failure I50.9 Hypokalemia E87.6 Hypomagnesemia E83.42 Normocytic anemia D64.9 GERD without esophagitis K21.9 Chronic anticoagulation Z79.01 Depression F32.A History of benign brain tumor Z86.011 Morbid obesity with BMI of 45.0-49.9, adult E66.01; Z68.42 Abnormal brain MRI R90.89 UTI (urinary tract infection) due to Enterococcus N39.0; B95.2 Acute severe vertigo R42 Candidal intertrigo B37.2 (4) Sepsis Sepsis acute organ dysfunction status: unspecified Sepsis type: sepsis due to unspecified organism Qualified Code(s): A41.9 - Sepsis, unspecified organism
[2023-06-05] MEDS: hydrOXYzine HCl 25 MG TAB PO STA (16:07)
--- NOTE | 2023-06-05 18:49 | Hospitalist Progress Note ---
Date of Service June 05, 2023 Assessment & Plan (1) Daytime somnolence: Plan: extensive w/u done while hospitalized - EEG, CT head, MRI brain x 2, labs, Rx of UTI (x 2), etc despite such had continued with daytime sleepiness Dr Muro trialed her on modafanil 100mg daily in the event she has a form of narcolepsy or similar thus far seeming to tolerate it and having a favorable response will continue will recommend referral to sleep medicine post-d/c for narcolepsy will need a 2-day sleep study (night and day) (2) Abnormal cortisol level: Plan: cortisol level = 4 but passed cosyntropin stim test ACTH level returned normal no adrenal insufficiency biochemically or clinically (no hypotension, hypoglycemia, etc) (3) Dysphagia: Plan: passed video swallow earlier this admission normal diet allowed by speech therapy (4) Sepsis: Plan: present on admission 2nd RLE cellulitis - resolved blood cx's negative completed 7+ days of IV/PO abx (5) Cellulitis of right leg: Plan: resolved has chronic lymphedema - would benefit from compression I asked wound care to place one-layer knee-high tubigrip stockings unfortunately she dislikes these and will not wear them consistently (6) Acute metabolic encephalopathy: Plan: resolved she is at baseline today (a little sleepy from atarax but otherwise at baseline) presented with confusion on day of admission presumed 2nd to sepsis/RLE cellulitis confusion then resolved since the early portion of the admission has intermittently had lethargy/sleepiness and confusion most days, however, she is awake/alert/mentating/talkative cause of her intermittent lethargy is uncertain we have noted that when she stays up late or doesn't sleep well the next day she is more sleepy/lethargic head CT x 2 this admission neg for acute findings of note - we [facility] well as CT/MRI brain images via PACs spoke with radiology - they compared her outside/old CT head with the CTs this admission - largely unchanged MRI brain WITHOUT acute or chronic stroke most findings are chronic -- MRI here was [facility] (MRI images from 06/2022 are in PACS) 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 -- acute met encephalopathy from infection (suspected as main culprit); hospital delirium; subclinical seizures; TIA events; poor sleep at night; narcolepsy (see #1 above) vs other EEG did not show seizure focus ; [id number] continue vimpat BID repeat MRI brain 05/25/23 largely unchanged from her MRI brain done 2 weeks prior on 05/10/23 Dr Herson Ashley performed neurology consultation Dr Ashley does not believe she has 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 infection; LP not advised fluctuating mental status likely due to recent sepsis/UTI/metabolic factors in the setting of baseline, severe anatomical abnormalities of the brain (prior brain tumor resection on right, encephalomalacia, hygroma, etc) overall mentation improved again see #1 above re: modafanil (7) History of DVT (deep vein thrombosis): Plan: Continue apixaban BID Has IVC filter in place (8) Hypothyroidism: Plan: Continue levothyroxine TSH 2.3 (9) 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 PROFESSOR (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) shunt status: Plan: placed in 03/2006 at [facility] records from that visit reviewed op note reviewed 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 PROFESSOR shunt is a Delta non-programmable unit - MR compatible 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 PROFESSOR shunt appears stable on CT and MRIs (10) Seizure disorder: Plan: Continue lacosamide No seizures have been observed/reported per nursing EEG negative for seizure focus However - can't rule out subclinical seizures contributing to periods of confusion/altered MS (11) Congestive heart failure: Plan: Chronic diastolic heart failure Echo 02/27 with normal EF has been on QOD lasix but placed on hold 2 days ago as urine was concentrated and no overt fluid overload (edema is lymphedema in legs) (12) Hypokalemia: Plan: Replaced Resolved (13) Hypomagnesemia: Plan: replaced resolved (14) Normocytic anemia: Plan: ferritin 58 transferrin low-normal suspect she has had Fe deficiency s/p venofer 300mg IV x 3 doses earlier this admission etiology of low Fe?? fecal occult neg x 2 (03/29, 05/31) could be dietary - eats very poorly, skips meals, does not eat nutritious meals, etc B12 level - mid 300s; supplementing is already on folate supplementation 1mg daily most recent H/H stable repeat Fe studies later in the admission with transferrin sat still only 16% s/p another dose of venofer on 05/22 (this is 4th dose for the entire stay) repeat h/h's have been stable (15) GERD without esophagitis: Plan: cont PPI reflux/aspiration precautions (16) Chronic anticoagulation: Plan: apixaban BID (17) Depression: Plan: cont prozac 20mg daily (18) History of benign brain tumor: Plan: left sided hemiplegia is presumably due to atrophy/encephalomalacia from her prior brain tumor resection (right sided thalamic astrocytoma per records) she also appears to have 2 meningiomas on her MRI brain -- 1. stable 1.7 cm left lateral calcified extra-axial lesion on image 16 series 8 which likely represents a meningioma. 2. probable meningioma of the falx cerebri anteriorly on image 15 measuring 8 mm. post-discharge she will need -- 1. neurology follow-up to follow seizure d/o, imaging, etc 2. neurosurgery where we refer her will depend on what town she is placed in - numerous referrals have been placed for various snfs in different locations (19) Morbid obesity with BMI of 45.0-49.9, adult: (20) Abnormal brain MRI: Plan: 05/10/23 brain MRI showed thickening of the pachymeninges she does not have any h/o CSF leak or postural headaches the thickening of the pachymeninges is a nonspecific finding -- could be dural thickening per radiology repeat MRI brain 05/25/23 with stable pachymeninges thus, likely a chronic finding appreciate neurology consultation & recs (21) UTI (urinary tract infection) due to Enterococcus: Plan: earlier in the stay VRE, low colony count (20,000 CFU) s/p daptomycin x 7 days and now off abx resolved (22) Acute severe vertigo: Plan: had a 2 minute episode of spinning associated with double vision on 05/08/23. no tinnitus or hearing changes. spontaneously resolved after the 2 minutes. if this was a TIA event she is already on Eliquis BID + aspirin 81mg daily. repeat head CT on 05/[address] CTA head/neck - ??left B OPERATOR stenosis otherwise both studies unremarkable. echo late fall 2022 was wnl. MRI brain was obtained after records from [facility] in [place] arrived. She had her shunt placed there in 2006. 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 PROFESSOR shunt is a non-programmable Delta device which is MRI compatible. NO acute or chronic CVA seen but obviously numerous findings related to her prior brain tumor resection. was this a brief TIA event? if yes - cont Andrea hayden (23) Candidal intertrigo: Plan: completed 7 day course of diflucan for such now c/o vulvar/vaginal itching and severe itching of lower abd wall pannus place back on diflucan cont barrier creams/powders if vulvar/vaginal complaints persist despite repeat course of diflucan will consult obstetrician gynecologist for pelvic (24) Left knee pain: Plan: start with x-rays and then go from there gout? pseudogout? OA? Plan had been a resident of [facility] but family asks that she not return to that facility. By report was living independently for years prior to going into [facility]. numerous referrals are pending for SNF placement but most places do not have b eds at the present time. left arm itching - triamcinolone cream 0.5% - BID in thin amounts for 5-7 days eucerin cream BID much improved Admission and Anticipated Discharge Date Admission Date: May 03, 2023 Subjective pt c/o severe pruritis of vaginal region and lower abdominal wall staff placed a moisture-wicking napkin in the midline lower pannus received 25mg of atarax - this helped itching -but made her tired also c/o left knee pain for "about a month" but she has never mentioned this to me prior continues to eat well Review of Systems Review of Systems: cv - no chest pain pulm - no dyspnea but still with occasional wheeze - but "it is better"; no cough GI - no abd pain/nausea/emesis Physical Exam Physical Exam: gen - obese, NAD mouth - MMM neck - no obvious JVD heart - RRR, s1 s2, no murmur lungs - CTA b/l today abd - soft NT BS+ ND ext - lymphedema b/l; pulses 2+ b/l neuro - hemiplegia LUE/LLE with contracture of LUE skin - stasis changes b/l shins; lower abdominal wall pannus/groin with intertrigo - severe vulva - chaperoned by nursing staff - unable to adequately visualize the vulvar area but no "fishy" odor or obvious discharge psych - a little sleepy today musculo - left knee - not warm, unable to tell if any effusion due to body habitus, but tender over superior portion of patella and superior portion of joint; no deformity Results & Data Results & Data Vital Signs (Past 12 Hours) Vital Signs Temp Pulse Resp BP BP Pulse Ox O2 Del Method 06/05/23 14:09 36.8 C 70 18 143/73 H 94 Room Air 06/05/23 07:11 Room Air 06/05/23 07:04 36.5 C 64 16 119/75 94 Room Air PG Care Time/CCT Total # of Minutes Spent Total Time Spent with Patient: Total time spent is greater than 50% in coordination of care (as documented) at patient's floor/unit and/or counseling patient: Coding Level of Care Code 82997 SUB INP/OBS CARE 2/35MIN Diagnoses Daytime somnolence R40.0 Abnormal cortisol level R79.89 Dysphagia R13.10 Sepsis A41.9 Sepsis acute organ dysfunction status: unspecified Sepsis type: sepsis due to unspecified organism Cellulitis of right leg L03.115 Acute metabolic encephalopathy G93.41 History of DVT (deep vein thrombosis) Z86.718 Hypothyroidism E03.9 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 PROFESSOR (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) shunt status Z98.2 Seizure disorder G40.909 Congestive heart failure I50.9 Hypokalemia E87.6 Hypomagnesemia E83.42 Normocytic anemia D64.9 GERD without esophagitis K21.9 Chronic anticoagulation Z79.01 Depression F32.A History of benign brain tumor Z86.011 Morbid obesity with BMI of 45.0-49.9, adult E66.01; Z68.42 Abnormal brain MRI R90.89 UTI (urinary tract infection) due to Enterococcus N39.0; B95.2 Acute severe vertigo R42 Candidal intertrigo B37.2 Left knee pain M25.562 (4) Sepsis Sepsis acute organ dysfunction status: unspecified Sepsis type: sepsis due to unspecified organism Qualified Code(s): A41.9 - Sepsis, unspecified organism
[2023-06-05] MEDS: FLUCONAZOLE 100 MG TAB PO SCH (23:08)
[2023-06-05] MEDS: FEXOFENADINE 60 MG TAB PO SCH (23:08)
--- NOTE | 2023-06-06 00:34 | XRay Report ---
LEFT KNEE 2 VIEWS CLINICAL HISTORY: Left knee pain. FINDINGS: AP and crosstable lateral views of the left knee are compared to study dated 02/26/2023. Th e skeletal structures are osteopenic. No fracture is seen. The joint spaces appear maintained. There are small patellar enthesophytes. No joint effusion is identified. Mild soft tissue edema is noted in the left leg. IMPRESSION: No acute bony abnormality is identified. Electronically signed by: Bob Cardona M.D. 06/06/2023 12:33 AM
[2023-06-06 10:46] LABS: BUN Creatinine Ratio 24.1 (10-20); C Reactive Protein 2.25 mg/dl (0-0.5); Calcium 9.1 mg/dl (8.6-10.3); Creatinine Clr Calc Pharmacy 132.2 ml/min; Uric Acid 4.7 mg/dl (2.6-7.2)
[2023-06-06 16:20] LABS: Appearance Urine Cloudy (Clear); Bacteria Urine Automated Negative (Negative); Bilirubin Urine Negative (Negative); Blood Urine 3+ (Negative); Color Urine Orange; Epithelial Cell Urine Auto >30 /lpf (0-5); Glucose Urine UA Negative (Negative); Ketones Urine Negative (Negative); Leukocyte Esterase Urine 1+ (Negative); Nitrite Urine Negative (Negative); RBC Urine Automated >30 /hpf (0-4); Specific Gravity Urine 1.009 (1.000-1.030); Urobilinogen Urine Negative (Negative); WBC Urine Automated >30 /hpf (0-5); pH Urine 8.5 (4.5-7.5)
[2023-06-06 16:26] LABS: Protein Urine 1+ (Negative)
--- NOTE | 2023-06-06 20:14 | Hospitalist Progress Note ---
Date of Service June 06, 2023 Assessment & Plan (1) Daytime somnolence: Plan: extensive w/u done while hospitalized - EEG, CT head, MRI brain x 2, labs, Rx of UTI (x 2), etc despite such had continued with daytime sleepiness Dr Muro trialed her on modafanil 100mg daily in the event she has a form of narcolepsy or similar has tolerated such and having a favorable response will continue as is will recommend referral to sleep medicine post-d/c for narcolepsy will need a 2-day sleep study (night and day) (2) Abnormal urinalysis: Plan: previous aguilar (about 2 weeks old) was removed new aguilar then placed and u/a sent u/a possibly suspicious for UTI but large #'s of epi cells urine sent for culture will await culture before initiating antibiotics as she has been eating/drinking well, no fever, etc (3) Abnormal cortisol level: Plan: cortisol level = 4 but passed cosyntropin stim test ACTH level returned normal no adrenal insufficiency biochemically or clinically (no hypotension, hypoglycemia, etc) (4) Dysphagia: Plan: passed video swallow earlier this admission normal diet allowed by speech therapy (5) Sepsis: Plan: present on admission 2nd RLE cellulitis - resolved blood cx's negative completed 7+ days of IV/PO abx (6) Cellulitis of right leg: Plan: resolved has chronic lymphedema - would benefit from compression I asked wound care to place one-layer knee-high tubigrip stockings unfortunately she dislikes these and will not wear them consistently (7) Acute metabolic encephalopathy: Plan: resolved presented with confusion on day of admission presumed 2nd to sepsis/RLE cellulitis confusion then resolved since the early portion of the admission has intermittently had lethargy/sleepiness and confusion head CT x 2 this admission neg for acute findings of note - we finally received CT head reports from [facility] as well as CT/MRI brain images via PACs spoke with radiology - they compared her outside/old CT head with the CTs this admission - largely unchanged MRI brain WITHOUT acute or chronic stroke most findings are chronic -- MRI here was compared to MRI brain done at [facility] 06/2022 (MRI images from 06/2022 are in PACS) 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 -- acute met encephalopathy from infection (suspected as main culprit); hospital delirium; subclinical seizures; TIA events; poor sleep at night; narcolepsy (see #1 above) vs other EEG did not show seizure focus ; [id number] continue vimpat BID repeat MRI brain 05/25/23 largely unchanged from her MRI brain done 05/10/23 Dr Herson Ashley performed neurology consultation Dr Ashley does not believe she has ICE HOCKEY COACH infection; LP not advised fluctuating mental status likely due to recent sepsis/UTI/metabolic factors in the setting of baseline, severe anatomical abnormalities of the brain (prior brain tumor resection on right, encephalomalacia, hygroma, etc) ?narcolepsy or some other form of sleep disorder again see #1 above re: modafanil (8) History of DVT (deep vein thrombosis): Plan: Continue apixaban BID Has IVC filter in place (9) Hypothyroidism: Plan: Continue levothyroxine TSH 2.3 (10) 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) shunt status: Plan: placed in 03/2006 at [facility] records from that visit reviewed op note reviewed BRAKE DRUM MOLDER shunt is a Delta non-programmable unit - MR compatible BRAKE DRUM MOLDER shunt appears stable on CT and MRIs (11) Seizure disorder: Plan: Continue lacosamide EEG done earlier in the stay negative for seizure focus However - can't rule out subclinical seizures contributing to periods of confusion/altered MS but felt unlikely (12) Congestive heart failure: Plan: Chronic diastolic heart failure Echo 02/27 with normal EF had been on QOD lasix but placed on hold earlier this week as urine was concentrated and no overt fluid overload (edema is lymphedema in legs) cont to hold for now (13) Hypokalemia: Plan: Replaced Resolved (14) Hypomagnesemia: Plan: replaced resolved (15) Normocytic anemia: Plan: ferritin 58 transferrin low-normal suspect she has had Fe deficiency s/p venofer 300mg IV x 3 doses earlier this admission etiology of low Fe?? fecal occult neg x 2 (03/29, 05/31) could be dietary - eats very poorly, skips meals, does not eat nutritious meals, etc B12 level - mid 300s; supplementing is already on folate supplementation 1mg daily most recent H/H stable repeat Fe studies later in the admission with transferrin sat still only 16% s/p another dose of venofer on 05/22 (this is 4th dose for the entire stay) repeat h/h's have been stable over the last few weeks (16) GERD without esophagitis: Plan: cont PPI reflux/aspiration precautions (17) Chronic anticoagulation: Plan: apixaban BID (18) Depression: Plan: cont prozac 20mg daily (19) History of benign brain tumor: Plan: left sided hemiplegia is presumably due to atrophy/encephalomalacia from her prior brain tumor resection (right sided thalamic astrocytoma per records) she also appears to have 2 meningiomas on her MRI brain -- 1. stable 1.7 cm left lateral calcified extra-axial lesion on image 16 series 8 which likely represents a meningioma. 2. probable meningioma of the falx cerebri anteriorly on image 15 measuring 8 mm. post-discharge she will need -- 1. neurology follow-up to follow seizure d/o, imaging, etc 2. neurosurgery where we refer her will depend on what town she is placed in - numerous referrals have been placed for various snfs in different locations (20) Morbid obesity with BMI of 45.0-49.9, adult: (21) Abnormal brain MRI: Plan: 05/10/23 brain MRI showed thickening of the pachymeninges she does not have any h/o CSF leak or postural headaches the thickening of the pachymeninges is a nonspecific finding -- could be dural thickening per radiology repeat MRI brain 05/25/23 with stable pachymeninges thus, likely a chronic finding appreciate neurology consultation & recs (22) UTI (urinary tract infection) due to Enterococcus: Plan: earlier in the stay VRE, low colony count (20,000 CFU) s/p daptomycin x 7 days and now off abx resolved see #2 above Re: abnormal u/a (23) Acute severe vertigo: Plan: had a 2 minute episode of spinning associated with double vision on 05/08/23. no tinnitus or hearing changes. if this was a TIA event she is already on Eliquis BID + aspirin 81mg daily. repeat head CT on 05/[address] CTA head/neck - ??left YARD MANAGER stenosis otherwise both studies unremarkable. echo late fall 2022 was wnl. MRI brain was obtained after records from [facility] in [place] arrived. She had her shunt placed there in 2006. BRAKE DRUM MOLDER shunt is a non-programmable Delta device which is MRI compatible. NO acute or chronic CVA seen but numerous findings related to her prior brain tumor resection. (24) Candidal intertrigo: Plan: completed 7 day course of diflucan for such earlier in the stay - c/o vulvar/vaginal itching and severe itching of lower abd wall pannus place back on diflucan 100mg daily plan 7-10 days cont barrier creams/powders for itching - jarod 60mg BID if vulvar/vaginal complaints persist despite repeat course of diflucan will consult gynecology teacher for pelvic exam and cultures (25) Left knee pain: Plan: x-rays unremarkable uric acid level not elevated crp minimally high left knee pain is better today without intervention uncertain of cause of pain if it recurs consider ortho consult right knee pain --> location of pain is same location as the left knee (patellar region) will monitor overnight and if still having pain tomorrow will obtain x-rays Plan had been a resident of [facility] but family asks that she not return to that facility. numerous referrals are pending for SNF placement but most places do not have beds at the present time. left arm itching - triamcinolone cream 0.5% - BID in thin amounts for 5-7 days eucerin cream BID much improved Admission and Anticipated Discharge Date Admission Date: May 03, 2023 Subjective itching in panus region improved itching on left arm improved itching in the vulvar/vaginal region also improved left knee pain is better today she now mentions right knee pain she can't tell me when it started pain comes & goes she is very vague about this pain denies any dyspnea denies any abd pain last BM - staff report that with emptying the urine from her aguilar bag the urine has a very foul odor Review of Systems Review of Systems: gen - good appetite cv - no chest pain pulm - no dyspnea GI - no nausea/emesis Physical Exam Physical Exam: gen - obese, NAD, looks similar to prior exams; awake/alert mouth - MMM neck - no obvious JVD heart - RRR, s1 s2, no murmur lungs - CTA b/l; "wheeze" sound but it comes from her upper airway NOT the lungs abd - soft NT BS+ ND ext - lymphedema b/l - unchanged; pulses 2+ b/l neuro - hemiplegia LUE/LLE with contracture of LUE skin - stasis changes b/l shins; rash on left arm just about resolved musculo - right knee - not warm, unable to tell if any effusion due to body habitus; like the left knee she is tender over the superior portion of the patella; with passive ROM she does not complain of pain Results & Data Results & Data Vital Signs (Past 12 Hours) Vital Signs Temp Pulse Resp BP Pulse Ox O2 Del Method 06/06/23 13:51 36.8 C 71 18 118/71 95 Room Air Laboratory Results Laboratory Results - last 24 hr 06/06/23 06/06/23 09:56 Unknown ESR 48 H Sodium 140 Potassium 4.0 Chloride 104 Carbon Dioxide 28 Anion Gap 8 BUN 13 Creatinine 0.54 L Est Cr Clr Drug Dosing 132.2 Est GFR ( Amer) 124.0 Est GFR (Non-Af Amer) 107.0 BUN/Creatinine Ratio 24.1 H Glucose 100 H Uric Acid 4.7 Calcium 9.1 C-Reactive Protein 2.25 H Urine Color [place] Urine Appearance Cloudy A Urine pH 8.5 H Ur Specific [place] 1.009 Urine Protein 1+ H Urine Glucose (UA) Negative Urine Ketones Negative Urine Blood 3+ H Urine Nitrite Negative Urine Bilirubin Negative Urine Urobilinogen Negative Ur Leukocyte Esterase 1+ H Urine WBC (Auto) >30 H Urine RBC (Auto) >30 H U Hyaline Cast (Auto) 1-5 U Epithel Cells (Auto) >30 H Urine Bacteria (Auto) Negative PG Care Time/CCT Total # of Minutes Spent Total Time Spent with Patient: Total time spent is greater than 50% in coordination of care (as documented) at patient's floor/unit and/or counseling patient: Coding Level of Care Code 89907 SUB INP/OBS CARE 2/35MIN Diagnoses Daytime somnolence R40.0 Abnormal urinalysis R82.90 Abnormal cortisol level R79.89 Dysphagia R13.10 Sepsis A41.9 Sepsis acute organ dysfunction status: unspecified Sepsis type: sepsis due to unspecified organism Cellulitis of right leg L03.115 Acute metabolic encephalopathy G93.41 History of DVT (deep vein thrombosis) Z86.718 Hypothyroidism E03.9 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) shunt status Z98.2 Seizure disorder G40.909 Congestive heart failure I50.9 Hypokalemia E87.6 Hypomagnesemia E83.42 Normocytic anemia D64.9 GERD without esophagitis K21.9 Chronic anticoagulation Z79.01 Depression F32.A History of benign brain tumor Z86.011 Morbid obesity with BMI of 45.0-49.9, adult E66.01; Z68.42 Abnormal brain MRI R90.89 UTI (urinary tract infection) due to Enterococcus N39.0; B95.2 Acute severe vertigo R42 Candidal intertrigo B37.2 Left knee pain M25.562 (5) Sepsis Sepsis acute organ dysfunction status: unspecified Sepsis type: sepsis due to unspecified organism Qualified Code(s): A41.9 - Sepsis, unspecified organism
[2023-06-07] MEDS: cefTRIAXone SODIUM 2,000 MG in DEXTROSE 5 % MINI-B 50 ML IV SCH (08:59)
--- NOTE | 2023-06-07 19:15 | Hospitalist Progress Note ---
Date of Service June 07, 2023 Assessment & Plan (1) Catheter-associated urinary tract infection: Plan: urine cx with GNR, 36823 CFU started rocephin 2gm IV daily today f/u on urine cx tomorrow no evidence of sepsis cont to eat well afebrile etc recurrent UTI - CT a/p in 04/2023 without renal stones or other urinary tract anomalies could consider methenamine for UTI prophylaxis after Rx for this UTI is complete aguilar exchanged yesterday, 06/05 (2) Daytime somnolence: Plan: extensive w/u done while hospitalized - EEG, CT head, MRI brain x 2, labs, Rx of UTI (x 2), etc despite such had continued with daytime sleepiness Dr Muro trialed her on modafanil 100mg daily in the event she has a form of narcolepsy or similar has tolerated such and having a favorable response will continue as is will recommend referral to sleep medicine post-d/c for narcolepsy will need a 2-day sleep study (night and day) (3) Abnormal cortisol level: Plan: cortisol level = 4 but passed cosyntropin stim test ACTH level returned normal no adrenal insufficiency biochemically or clinically (no hypotension, hypoglycemia, etc) (4) Dysphagia: Plan: passed video swallow earlier this admission normal diet allowed by speech therapy (5) Sepsis: Plan: present on admission 2nd RLE cellulitis - resolved blood cx's negative completed 7+ days of IV/PO abx (6) Cellulitis of right leg: Plan: resolved has chronic lymphedema - would benefit from compression I asked wound care to place one-layer knee-high tubigrip stockings unfortunately she dislikes these and will not wear them consistently (7) Acute metabolic encephalopathy: Plan: resolved presented with confusion on day of admission presumed 2nd to sepsis/RLE cellulitis confusion then resolved since the early portion of the admission has intermittently had lethargy/sleepiness and confusion head CT x 2 this admission neg for acute findings of note - we finally received CT head reports from [facility] as well as CT/MRI brain images via PACs spoke with radiology - they compared her outside/old CT head with the CTs this admission - largely unchanged MRI brain WITHOUT acute or chronic stroke most findings are chronic -- MRI here was compared to MRI brain done at [facility] 06/2022 (MRI images from 06/2022 are in PACS) 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 -- acute met encephalopathy from infection (suspected as main culprit); hospital delirium; subclinical seizures; TIA events; poor sleep at night; narcolepsy (see #1 above) vs other EEG did not show seizure focus ; [id number] continue vimpat BID repeat MRI brain 05/25/23 largely unchanged from her MRI brain done 05/10/23 Dr Herson Ashley performed neurology consultation Dr Ashley does not believe she has LIME SLUDGE MIXER infection; LP not advised fluctuating mental status likely due to recent sepsis/UTI/metabolic factors in the setting of baseline, severe anatomical abnormalities of the brain (prior brain tumor resection on right, encephalomalacia, hygroma, etc) ?narcolepsy or some other form of sleep disorder again see #1 above re: modafanil (8) History of DVT (deep vein thrombosis): Plan: Continue apixaban BID Has IVC filter in place (9) Hypothyroidism: Plan: Continue levothyroxine TSH 2.3 (10) FOOTWEAR SALES LEADER (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) shunt status: Plan: placed in 03/2006 at [facility] records from that visit reviewed op note reviewed FOOTWEAR SALES LEADER shunt is a Delta non-programmable unit - MR compatible FOOTWEAR SALES LEADER shunt appears stable on CT and MRIs (11) Seizure disorder: Plan: Continue lacosamide EEG done earlier in the stay negative for seizure focus However - can't rule out subclinical seizures contributing to periods of confusion/altered MS but felt unlikely (12) Congestive heart failure: Plan: Chronic diastolic heart failure Echo 02/27 with normal EF had been on QOD lasix but placed on hold earlier this week as urine was concentr ated and no overt fluid overload (edema is lymphedema in legs) cont to hold for now (13) Hypokalemia: Plan: Replaced Resolved (14) Hypomagnesemia: Plan: replaced resolved (15) Normocytic anemia: Plan: ferritin 58 transferrin low-normal suspect she has had Fe deficiency s/p venofer 300mg IV x 3 doses earlier this admission etiology of low Fe?? fecal occult neg x 2 (03/29, 05/31) could be dietary - eats very poorly, skips meals, does not eat nutritious meals, etc B12 level - mid 300s; supplementing is already on folate supplementation 1mg daily most recent H/H stable repeat Fe studies later in the admission with transferrin sat still only 16% s/p another dose of venofer on 05/22 (this is 4th dose for the entire stay) repeat h/h's have been stable over the last few weeks (16) GERD without esophagitis: Plan: cont PPI reflux/aspiration precautions (17) Chronic anticoagulation: Plan: apixaban BID (18) Depression: Plan: cont prozac 20mg daily (19) History of benign brain tumor: Plan: left sided hemiplegia is presumably due to atrophy/encephalomalacia from her prior brain tumor resection (right sided thalamic astrocytoma per records) she also appears to have 2 meningiomas on her MRI brain -- 1. stable 1.7 cm left lateral calcified extra-axial lesion on image 16 series 8 which likely represents a meningioma. 2. probable meningioma of the falx cerebri anteriorly on image 15 measuring 8 mm. post-discharge she will need -- 1. neurology follow-up to follow seizure d/o, imaging, etc 2. neurosurgery where we refer her will depend on what town she is placed in - numerous referrals have been placed for various snfs in different locations (20) Morbid obesity with BMI of 45.0-49.9, adult: Plan: BMI 49 (21) Abnormal brain MRI: Plan: 05/10/23 brain MRI showed thickening of the pachymeninges she does not have any h/o CSF leak or postural headaches the thickening of the pachymeninges is a nonspecific finding -- could be dural thickening per radiology repeat MRI brain 05/25/23 with stable pachymeninges thus, likely a chronic finding appreciate neurology consultation & recs (22) UTI (urinary tract infection) due to Enterococcus: Plan: earlier in the stay VRE, low colony count (20,000 CFU) s/p daptomycin x 7 days and now off abx resolved see #1 above Re: new UTI (23) Acute severe vertigo: Plan: had a 2 minute episode of spinning associated with double vision on 05/08/23. no tinnitus or hearing changes. if this was a TIA event she is already on Eliquis BID + aspirin 81mg daily. repeat head CT on 05/[address] CTA head/neck - ??left EXHIBIT ARTIST stenosis otherwise both studies unremarkable. echo late fall 2022 was wnl. MRI brain was obtained after records from [facility] in [place] arrived. She had her shunt placed there in 2006. FOOTWEAR SALES LEADER shunt is a non-programmable Delta device which is MRI compatible. NO acute or chronic CVA seen but numerous findings related to her prior brain tumor resection. (24) Candidal intertrigo: Plan: completed 7 day course of diflucan for such earlier in the stay - c/o vulvar/vaginal itching and severe itching of lower abd wall pannus placed back on diflucan 100mg daily thus, day #3 of such plan 7-10 days cont barrier creams/powders for itching - jarod 60mg BID if vulvar/vaginal complaints persist despite repeat course of diflucan will consult rug cleaner helper for pelvic exam and cultures (25) Left knee pain: Plan: x-rays unremarkable uric acid level not elevated crp minimally high has not complained of either knee in over 24 hours Plan had been a resident of [facility] but family asks that she not return to that facility. numerous referrals are pending for SNF placement but most places do not have beds at the present time. left arm itching - triamcinolone cream 0.5% - BID in thin amounts for 5-7 days eucerin cream BID much improved, just about resolved sister Selin extensively updated by phone this evening, / Selin aware of new UTI, etc she reports Cassy was confused starting mid-week Admission and Anticipated Discharge Date Admission Date: May 03, 2023 Subjective no events overnight pt asks "when can I go home?" she then states "I don't want to go the residential" pruritis controlled no dyspnea eating well Review of Systems Review of Systems: neuro - no headache gi - no pain cv - no pain pulm - no cough Physical Exam Physical Exam: gen - obese, NAD, awake/alert, watching TV mouth - MMM neck - no obvious JVD heart - RRR, s1 s2, no murmur lungs - CTA b/l; "wheeze" sound but it comes from her upper airway NOT the lungs -- did it several times today as previous abd - soft NT BS+ ND ext - lymphedema b/l - unchanged; pulses 2+ b/l neuro - hemiplegia LUE/LLE with contracture of LUE; pt had myoclonus of left arm today while I was examining her skin - stasis changes b/l shins; rash on left arm resolved Results & Data Results & Data Vital Signs (Past 12 Hours) Vital Signs Temp Pulse Resp BP Pulse Ox O2 Del Method 06/07/23 14:13 36.6 C 72 18 131/74 94 Room Air 06/07/23 08:30 Room Air 06/07/23 07:17 36.9 C 80 18 147/96 H 98 Room Air PG Care Time/CCT Total # of Minutes Spent Total Time Spent with Patient: Total time spent is greater than 50% in coordination of care (as documented) at patient's floor/unit and/or counseling patient: Coding Level of Care Code 03775 SUB INP/OBS CARE 2/35MIN Diagnoses Catheter-associated urinary tract infection T83.511A; N39.0 Daytime somnolence R40.0 Abnormal cortisol level R79.89 Dysphagia R13.10 Sepsis A41.9 Sepsis acute organ dysfunction status: unspecified Sepsis type: sepsis due to unspecified organism Cellulitis of right leg L03.115 Acute metabolic encephalopathy G93.41 History of DVT (deep vein thrombosis) Z86.718 Hypothyroidism E03.9 FOOTWEAR SALES LEADER (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) shunt status Z98.2 Seizure disorder G40.909 Congestive heart failure I50.9 Hypokalemia E87.6 Hypomagnesemia E83.42 Normocytic anemia D64.9 GERD without esophagitis K21.9 Chronic anticoagulation Z79.01 Depression F32.A History of benign brain tumor Z86.011 Morbid obesity with BMI of 45.0-49.9, adult E66.01; Z68.42 Abnormal brain MRI R90.89 UTI (urinary tract infection) due to Enterococcus N39.0; B95.2 Acute severe vertigo R42 Candidal intertrigo B37.2 Left knee pain M25.562 (5) Sepsis Sepsis acute organ dysfunction status: unspecified Sepsis type: sepsis due to unspecified organism Qualified Code(s): A41.9 - Sepsis, unspecified organism
[2023-06-08] MEDS: ERTAPENEM SODIUM 1,000 MG in SYRINGE 0 ML IV SCH (08:40)
[2023-06-08] MEDS: ADVANCED PROBIOTIC 625 MG CAPSULE PO SCH (08:41)
--- NOTE | 2023-06-08 19:56 | Hospitalist Progress Note ---
Date of Service June 08, 2023 Assessment & Plan (1) Catheter-associated urinary tract infection: Plan: [place] cx with 52918 CFU ESBL Klebsiella d/c rocephin change to ertapenem 1gm daily x 7 days recurrent UTI - CT a/p in 04/2023 without renal stones or other urinary tract anomalies could consider methenamine for UTI prophylaxis after Rx for this UTI is complete aguilar exchanged 06/06/23 (2) Daytime somnolence: Plan: extensive w/u done while hospitalized - EEG, CT head, MRI brain x 2, labs, Rx of UTI (x 2), etc despite such had continued with daytime sleepiness Dr Muro trialed her on modafanil 100mg daily in the event she has a form of narcolepsy or similar has tolerated such and having a favorable response will continue as is will recommend referral to sleep medicine post-d/c for narcolepsy will need a 2-day sleep study (night and day) (3) Abnormal cortisol level: Plan: cortisol level = 4 but passed cosyntropin stim test ACTH level returned normal no adrenal insufficiency biochemically or clinically (no hypotension, hypoglycemia, etc) (4) Dysphagia: Plan: passed video swallow earlier this admission normal diet allowed by speech therapy (5) Sepsis: Plan: present on admission 2nd RLE cellulitis - resolved blood cx's negative completed 7+ days of IV/PO abx no evidence of sepsis with this current UTI (6) Cellulitis of right leg: Plan: resolved has chronic lymphedema - would benefit from compression I asked wound care to place one-layer knee-high tubigrip stockings unfortunately she dislikes these and will not wear them (7) Acute metabolic encephalopathy: Plan: resolved presented with confusion on day of admission presumed 2nd to sepsis/RLE cellulitis confusion then resolved since the early portion of the admission has intermittently had lethargy/sleepiness and confusion head CT x 2 this admission neg for acute findings of note - we finally received CT head reports from [facility] as well as CT/MRI brain images via PACs spoke with radiology - they compared her outside/old CT head with the CTs this admission - largely unchanged MRI brain WITHOUT acute or chronic stroke most findings are chronic -- MRI here was compared to MRI brain done at [facility] 06/2022 (MRI images from 06/2022 are in PACS) 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 -- acute met encephalopathy from infection (suspected as main culprit); hospital delirium; subclinical seizures; TIA events; poor sleep at night; narcolepsy (see #1 above) vs other EEG did not show seizure focus ; [id number] continue vimpat BID repeat MRI brain 05/25/23 largely unchanged from her MRI brain done 05/10/23 Dr Herson Ashley performed neurology consultation Dr Ashley does not believe she has VETERANS EMPLOYMENT REPRESENTATIVE infection; LP not advised fluctuating mental status likely due to recent sepsis/UTI/metabolic factors in the setting of baseline, severe anatomical abnormalities of the brain (prior brain tumor resection on right, encephalomalacia, hygroma, etc) ?narcolepsy or some other form of sleep disorder again see above re: modafanil (8) History of DVT (deep vein thrombosis): Plan: Continue apixaban BID Has IVC filter in place (9) Hypothyroidism: Plan: Continue levothyroxine TSH 2.3 (10) PARTS COUNTERPERSON (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) shunt status: Plan: placed in 03/2006 at [facility] records from that visit reviewed op note reviewed PARTS COUNTERPERSON shunt is a Delta non-programmable unit - MR compatible PARTS COUNTERPERSON shunt appears stable on CT and MRIs (11) Seizure disorder: Plan: Continue lacosamide EEG done earlier in the stay negative for seizure focus However - can't rule out subclinical seizures contributing to periods of confusion/altered MS but felt unlikely (12) Congestive heart failure: Plan: Chronic diastolic heart failure Echo 02/27 with normal EF had been on QOD lasix but placed on hold earlier this week as urine was concentrated and no overt fluid overload (edema is lymphedema in legs) cont to hold for now (13) Hypokalemia: Plan: Replaced Resolved (14) Hypomagnesemia: Plan: replaced resolved (15) Normocytic anemia: Plan: ferritin 58 transferrin low-normal suspect she has had Fe deficiency s/p venofer 300mg IV x 3 doses earlier this admission etiology of low Fe?? fecal occult neg x 2 (03/29, 05/31) could be dietary - eats very poorly, skips meals, does not eat nutritious meals, etc B12 level - mid 300s; supplementing is already on folate supplementation 1mg daily most recent H/H stable repeat Fe studies later in the admission with transferrin sat still only 16% s/p another dose of venofer on 05/22 (this is 4th dose for the entire stay) repeat h/h's have been stable over the last few weeks (16) GERD without esophagitis: Plan: cont PPI reflux/aspiration precautions (17) Chronic anticoagulation: Plan: apixaban BID (18) Depression: Plan: cont prozac 20mg daily (19) History of benign brain tumor: Plan: left sided hemiplegia is presumably due to atrophy/encephalomalacia from her prior brain tumor resection (right sided thalamic astrocytoma per records) she also appears to have 2 meningiomas on her MRI brain -- 1. stable 1.7 cm left lateral calcified extra-axial lesion on image 16 series 8 which likely represents a meningioma. 2. probable meningioma of the falx cerebri anteriorly on image 15 measuring 8 mm. post-discharge she will need -- 1. neurology follow-up to follow seizure d/o, imaging, etc 2. neurosurgery where we refer her will depend on what town she is placed in - numerous referrals have been placed for various snfs in different locations (20) Morbid obesity with BMI of 45.0-49.9, adult: Plan: BMI 49 (21) Abnormal brain MRI: Plan: 05/10/23 brain MRI showed thickening of the pachymeninges she does not have any h/o CSF leak or postural headaches the thickening of the pachymeninges is a nonspecific finding -- could be dural thickening per radiology repeat MRI brain 05/25/23 with stable pachymeninges thus, likely a chronic finding appreciate neurology consultation & recs (22) UTI (urinary tract infection) due to Enterococcus: Plan: earlier in the stay VRE, low colony count (20,000 CFU) s/p daptomycin x 7 days and now off abx resolved see above Re: new UTI (23) Acute severe vertigo: Plan: had a 2 minute episode of spinning associated with double vision on 05/08/23. no tinnitus or hearing changes. if this was a TIA event she is already on Eliquis BID + aspirin 81mg daily. repeat head CT on 05/[address] CTA head/neck - ??left RESEARCH PHLEBOTOMIST stenosis otherwise both studies unremarkable. echo late fall 2022 was wnl. MRI brain was obtained after records from [facility] in [place] arrived. She had her shunt placed there in 2006. PARTS COUNTERPERSON shunt is a non-programmable Delta device which is MRI compatible. NO acute or chronic CVA seen but numerous findings related to her prior brain tumor resection. (24) Candidal intertrigo: Plan: completed 7 day course of diflucan for such earlier in the stay - c/o vulvar/vaginal itching and severe itching of lower abd wall pannus placed back on diflucan 100mg daily thus, day #4 of such plan 7-10 days cont barrier creams/powders for itching - jarod 60mg BID if vulvar/vaginal complaints persist despite repeat course of diflucan will consult aircraft mechanic structures for pelvic exam and cultures (25) Left knee pain: Plan: x-rays unremarkable uric acid level not elevated crp minimally high has not complained of either knee in over 24 hours Plan had been a resident of [facility] but family asks that she not return to that facility. numerous referrals are pending for SNF placement but most places do not have beds at the present time. left arm itching - triamcinolone cream 0.5% - BID in thin amounts for 5-7 days eucerin cream BID resolved - will stop the TAC cream 0.5% sister Selin extensively updated by phone on 06/07/23 Selin aware of new UTI, etc PT/OT when willing to participate appreciate SW assistance in trying to secure a new SNF for Ms Dorado Admission and Anticipated Discharge Date Admission Date: May 03, 2023 Subjective no new events watching [employer] channel on TV during my visit "same old same old" she said we had lengthy conversation today about growing up in [place], her parents, etc denies pruritis or pain in any location today Review of Systems Review of Systems: gen - no fevers cv - no chest pain pulm - no cough or dyspnea Physical Exam Physical Exam: gen - obese, NAD, awake/alert, watching TV - no change from prior visits mouth - MMM neck - no obvious JVD heart - RRR, s1 s2, no murmur lungs - CTA b/l abd - soft NT BS+ ND ext - lymphedema b/l - unchanged; pulses 2+ b/l neuro - hemiplegia LUE/LLE with contracture of LUE skin - stasis changes b/l shins; rash on left arm resolved; I did not examine the abd skin folds or groin today psych - awake/alert, baseline MS today Results & Data Results & Data Vital Signs (Past 12 Hours) Vital Signs Temp Pulse Resp BP Pulse Ox O2 Del Method 06/08/23 14:56 36.7 C 71 20 133/78 96 Room Air 06/08/23 09:43 Room Air Laboratory Results 06/06/23 Unknown Urine Culture - Final Urine,Indwelling Cath Klebsiella pneumoniae ESBL 05/07/23 00:00 Urine Culture - Final Urine,Straight Cath Enterococcus faecium VRE 05/03/23 05:50 Aerobic Blood Culture - Final Blood No growth in Aerobic bottle after 5 days. Anaerobic Blood Culture - Final No growth in Anaerobic bottle after 5 days. 05/03/23 06:16 Aerobic Blood Culture - Final Blood No growth in Aerobic bottle after 5 days. Anaerobic Blood Culture - Final 05/03/23 05:22 Urine Culture - Final Urine,Clean Catch No growth - less than 1,000 colonies/mL. PG Care Time/CCT Total # of Minutes Spent Total Time Spent with Patient: Total time spent is greater than 50% in coordination of care (as documented) at patient's floor/unit and/or counseling patient: Coding Level of Care Code 03850 SUB INP/OBS CARE 05/01MIN Diagnoses Catheter-associated urinary tract infection T83.511A; N39.0 Daytime somnolence R40.0 Abnormal cortisol level R79.89 Dysphagia R13.10 Sepsis A41.9 Sepsis acute organ dysfunction status: unspecified Sepsis type: sepsis due to unspecified organism Cellulitis of right leg L03.115 Acute metabolic encephalopathy G93.41 History of DVT (deep vein thrombosis) Z86.718 Hypothyroidism E03.9 PARTS COUNTERPERSON (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) shunt status Z98.2 Seizure disorder G40.909 Congestive heart failure I50.9 Hypokalemia E87.6 Hypomagnesemia E83.42 Normocytic anemia D64.9 GERD without esophagitis K21.9 Chronic anticoagulation Z79.01 Depression F32.A History of benign brain tumor Z86.011 Morbid obesity with BMI of 45.0-49.9, adult E66.01; Z68.42 Abnormal brain MRI R90.89 UTI (urinary tract infection) due to Enterococcus N39.0; B95.2 Acute severe vertigo R42 Candidal intertrigo B37.2 Left knee pain M25.562 (5) Sepsis Sepsis acute organ dysfunction status: unspecified Sepsis type: sepsis due to unspecified organism Qualified Code(s): A41.9 - Sepsis, unspecified organism
--- NOTE | 2023-06-09 19:18 | Hospitalist Progress Note ---
Date of Service June 09, 2023 Assessment & Plan (1) Catheter-associated urinary tract infection: [place] 40683 CFU ESBL Klebsiella day #2 of ertapenem 1gm IV daily x 7 days patient with recurrent UTIs --> CT a/p in 04/2023 without renal stones or other urinary tract anomalies could consider methenamine for UTI prophylaxis after Rx for this UTI pt's sister Selin asked about potential for urology consult for the recurrent UTIs? aguilar exchanged 06/06/23 (2) Low grade fever: Plan: likely 2nd to #1 above however, if fevers persist, would need additional w/u - RSV/COVID/flu testing, cxr, etc (3) Daytime somnolence: Plan: extensive w/u done while hospitalized - EEG, CT head, MRI brain x 2, labs, Rx of UTIs, etc despite such had continued with daytime sleepiness Dr Muro trialed her on modafanil 100mg daily in the event she has a form of narcolepsy or similar has tolerated such and having a favorable response will recommend referral to sleep medicine post-d/c for formal sleep study (typically a 2-day study for narcolepsy) (4) Abnormal cortisol level: Plan: cortisol level = 4, but passed cosyntropin stim test ACTH level returned normal no adrenal insufficiency biochemically or clinically (no hypotension, hypoglycemia, etc) (5) Dysphagia: Plan: passed video swallow earlier this admission normal diet allowed by speech therapy (6) Sepsis: Plan: present on admission 2nd RLE cellulitis - resolved blood cx's negative completed 7+ days of IV/PO abx (7) Cellulitis of right leg: Plan: resolved has chronic lymphedema - would benefit from compression but declining to use tubigrip stockings (8) Acute metabolic encephalopathy: Plan: resolved presented with confusion on day of admission presumed 2nd to sepsis/RLE cellulitis confusion then resolved since the early portion of the admission has intermittently had lethargy/sleepiness and confusion head CT x 2 this admission neg for acute findings of note - we finally received CT head reports from [facility] as well as CT/MRI brain images via PACs spoke with radiology - they compared her outside/old CT head with the CTs this admission - largely unchanged MRI brain WITHOUT acute or chronic stroke most findings are chronic -- MRI here was compared to MRI brain done at [facility] 06/2022 (MRI images from 06/2022 are in PACS) 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 -- acute met encephalopathy from infection (suspected as main culprit); hospital delirium; subclinical seizures; TIA events; poor sleep at night; narcolepsy (see #1 above) vs other EEG did not show seizure focus ; [id number] continue vimpat BID repeat MRI brain 05/25/23 largely unchanged from her MRI brain done 05/10/23 Dr Herson Ashley performed neurology consultation Dr Ashley does not believe 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 has 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 infection; LP not advised fluctuating mental status likely due to recent sepsis/UTI/metabolic factors in the setting of baseline, severe anatomical abnormalities of the brain (prior brain tumor resection on right, encephalomalacia, hygroma, etc) ?narcolepsy or some other form of sleep disorder again see above re: modafanil (9) History of DVT (deep vein thrombosis): Plan: Continue apixaban BID Has IVC filter in place (10) Hypothyroidism: Plan: Continue levothyroxine TSH 2.3 (11) HEEL STAINER (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) shunt status: Plan: placed in 03/2006 at [facility] HEEL STAINER shunt is a Delta non-programmable unit - MR compatible HEEL STAINER shunt appears stable on CT head and MRIs (12) Seizure disorder: Plan: Continue lacosamide EEG done earlier in the stay negative for seizure focus (13) Congestive heart failure: Plan: Chronic diastolic heart failure Echo 02/27 with normal EF had been on QOD lasix but placed on hold last week as urine was concentrated and po intake for a few days was not robust cont to hold for now (14) Hypokalemia: Plan: Replaced Resolved (15) Hypomagnesemia: Plan: replaced resolved (16) Normocytic anemia: Plan: ferritin 58 transferrin low-normal suspect she has had Fe deficiency s/p venofer 300mg IV x 3 doses earlier this admission etiology of low Fe?? fecal occult neg x 2 (03/29, 05/31) could be dietary - eats very poorly, skips meals, does not eat nutritious meals, etc B12 level - mid 300s; supplementing is already on folate supplementation 1mg daily most recent H/H stable repeat Fe studies later in the admission with transferrin sat still only 16% s/p another dose of venofer on 05/22 (this is 4th dose for the entire stay) repeat h/h's have been stable over the last few weeks (17) GERD without esophagitis: Plan: cont PPI reflux/aspiration precautions (18) Chronic anticoagulation: Plan: apixaban BID (19) Depression: Plan: cont prozac 20mg daily (20) History of benign brain tumor: Plan: left sided hemiplegia is presumably due to atrophy/encephalomalacia from her prior brain tumor resection (right sided thalamic astrocytoma per records) she also appears to have 2 meningiomas on her MRI brain -- 1. stable 1.7 cm left lateral calcified extra-axial lesion on image 16 series 8 which likely represents a meningioma. 2. probable meningioma of the falx cerebri anteriorly on image 15 measuring 8 mm. post-discharge she will need -- 1. neurology follow-up to follow seizure d/o, imaging, etc 2. neurosurgery (21) Morbid obesity with BMI of 45.0-49.9, adult: Plan: BMI 49 (22) Abnormal brain MRI: Plan: 05/10/23 brain MRI showed thickening of the pachymeninges she does not have any h/o CSF leak or postural headaches the thickening of the pachymeninges is a nonspecific finding -- could be dural thickening per radiology repeat MRI brain 05/25/23 with stable pachymeninges thus, likely a chronic finding appreciate neurology consultation & recs (23) UTI (urinary tract infection) due to Enterococcus: Plan: earlier in the stay VRE, low colony count (20,000 CFU) s/p daptomycin x 7 days and now off abx resolved see above Re: new UTI (24) Acute severe vertigo: Plan: had a 2 minute episode of spinning associated with double vision on 05/08/23. no tinnitus or hearing changes. if this was a TIA event she is already on Eliquis BID + aspirin 81mg daily. repeat head CT on 05/[address] CTA head/neck - ??left MODEL AND DYE PERSON stenosis otherwise both studies unremarkable. echo late fall 2022 was wnl. MRI brain was obtained after records from [facility] in [place] arrived. She had her shunt placed there in 2006. HEEL STAINER shunt is a non-programmable Delta device which is MRI compatible. NO acute or chronic CVA seen but numerous findings related to her prior brain tumor resection. (25) Candidal intertrigo: Plan: completed 7 day course of diflucan for such earlier in the stay - c/o vulvar/vaginal itching and severe itching of lower abd wall pannus placed back on diflucan 100mg daily thus, day #5 of such plan 7-10 days cont barrier creams/powders for itching - jarod 60mg BID if vulvar/vaginal complaints persist despite repeat course of diflucan will consult physician gynecologist for pelvic exam and cultures (26) Left knee pain: Plan: x-rays unremarkable uric acid level not elevated crp minimally high has not complained of either knee in over 24 hours Plan had been a resident of [facility] but family asks that she not return to that facility. numerous referrals are pending for SNF placement but most places do not have beds at the present time. left arm itching s/p triamcinolone cream 0.5% -- resolved sister Selin extensively updated by phone on 06/07/23 Selin updated at bedside today PT/OT when willing to participate appreciate SW assistance in trying to secure a new SNF for Ms Dorado Admission and Anticipated Discharge Date Admission Date: May 03, 2023 Subjective no events today except low-grade temp of 37.6 this afternoon - asymptomatic 2 stools per nursing pt declined to get out of bed today eating well drinking fair during the visit the pt's sister Selin was present patient denied any headache, nasal congestion, cough, dyspnea, chest pain, abd pain, N/V, pains in her limbs no chills Review of Systems 2 Review of Systems: gen - feels good cv - no orthopnea pulm - no sputum GI - no diarrhea skin - denies pruritis today of the groin, vulvar/vaginal region, or L arm Physical Exam Physical Exam: gen - obese, NAD, awake/alert, lying in bed comfortably - looks the same as on previous visits mouth - MMM neck - no JVD heart - RRR, s1 s2, no murmur lungs - CTA b/l, decreased BS bases abd - soft NT BS+ ND ext - lymphedema b/l - unchanged; pulses 2+ b/l neuro - hemiplegia LUE/LLE with contracture of LUE skin - stasis changes b/l shins; rash on left arm resolved psych - awake/alert - at baseline Results & Data Results & Data Vital Signs (Past 12 Hours) Vital Signs Temp Pulse Resp BP Pulse Ox O2 Del Method 06/09/23 14:15 37.6 C H 70 18 147/82 H 95 Room Air 06/09/23 08:35 Room Air PG Care Time/CCT Total # of Minutes Spent Total Time Spent with Patient: Total time spent is greater than 50% in coordination of care (as documented) at patient's floor/unit and/or counseling patient: Coding Level of Care Code 15523 SUB INP/OBS CARE 235MIN Diagnoses Catheter-associated urinary tract infection T83.511A; N39.0 Low grade fever R50.9 Daytime somnolence R40.0 Abnormal cortisol level R79.89 Dysphagia R13.10 Sepsis A41.9 Sepsis acute organ dysfunction status: unspecified Sepsis type: sepsis due to unspecified organism Cellulitis of right leg L03.115 Acute metabolic encephalopathy G93.41 History of DVT (deep vein thrombosis) Z86.718 Hypothyroidism E03.9 HEEL STAINER (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) shunt status Z98.2 Seizure disorder G40.909 Congestive heart failure I50.9 Hypokalemia E87.6 Hypomagnesemia E83.42 Normocytic anemia D64.9 GERD without esophagitis K21.9 Chronic anticoagulation Z79.01 Depression F32.A History of benign brain tumor Z86.011 Morbid obesity with BMI of 45.0-49.9, adult E66.01; Z68.42 Abnormal brain MRI R90.89 UTI (urinary tract infection) due to Enterococcus N39.0; B95.2 Acute severe vertigo R42 Candidal intertrigo B37.2 Left knee pain M25.562 (6) Sepsis Sepsis acute organ dysfunction status: unspecified Sepsis type: sepsis due to unspecified organism Qualified Code(s): A41.9 - Sepsis, unspecified organism
[2023-06-10 12:53] LABS: Hematocrit (blood only) 36.2 % (37.0-47.0); Hemoglobin 10.3 g/dl (12.0-16.0); Mean Corpuscular Hemoglobin 24.8 pg (25.0-34.0); Mean Corpuscular Hgb Conc 28.5 g/dL (32.0-36.0); Mean Corpuscular Volume 87.2 fL (80.0-100.0); Mean Platelet Volume 10.1 fL (9.4-12.4); Platelet Count 310 K/uL (130-400); RDW Standard Deviation 75.3 fL (36.4-46.3); Red Blood Count 4.15 M/uL (4.20-5.40); White Blood Count 5.83 K/ul (4.8-10.8)
[2023-06-10 13:03] LABS: Anisocytosis Present; Basophils # (auto) 0.02 K/uL (0.00-0.20); Basophils % (auto) 0.3 %; Eosinophils % (auto) 5.1 %; Immature Granulocytes # (auto) 0.02 K/uL (0.01-0.20); Immature Granulocytes % (auto) 0.3 %; Lymphocytes # (auto) 1.46 K/uL (1.20-3.40); Monocytes % (auto) 5.1 %; Neutrophils # (auto) 3.73 K/uL (1.40-6.50); Neutrophils % (auto) 64.2 %; Polychromasia 1+
[2023-06-10 13:07] LABS: Calcium 8.5 mg/dl (8.6-10.3); Potassium 4.3 mmol/L (3.5-5.1)
[2023-06-10 13:13] LABS: BUN Creatinine Ratio 28.8 (10-20); Creatinine Clr Calc Pharmacy 137.3 ml/min; Est GFR (African American) 125.5 ml/min; Est GFR (Non-African American) 108.3 ml/min
--- NOTE | 2023-06-10 18:10 | Hospitalist Progress Note ---
Date of Service June 10, 2023 Assessment & Plan (1) Catheter-associated urinary tract infection: [place] 03143 CFU ESBL Klebsiella day #3 of ertapenem patient with recurrent UTIs --> CT a/p in 04/2023 without renal stones or other urinary tract anomalies could consider methenamine for UTI prophylaxis after Rx for this UTI aguilar exchanged 06/06/23 (2) Low grade fever: Plan: likely 2nd to #1 above -none last 24 (3) Daytime somnolence: Plan: extensive w/u done while hospitalized - EEG, CT head, MRI brain x 2, labs, Rx of UTIs, etc despite such had continued with daytime sleepiness Dr Muro trialed her on modafanil 100mg daily in the event she has a form of narcolepsy or similar has tolerated such and having a favorable response will recommend referral to sleep medicine post-d/c for formal sleep study (typically a 2-day study for narcolepsy) (4) Abnormal cortisol level: Plan: cortisol level = 4, but passed cosyntropin stim test ACTH level returned normal no adrenal insufficiency biochemically or clinically (no hypotension, hypoglycemia, etc) (5) Dysphagia: Plan: passed video swallow earlier this admission normal diet allowed by speech therapy (6) Sepsis: Plan: present on admission 2nd RLE cellulitis - resolved blood cx's negative completed 7+ days of IV/PO abx (7) Cellulitis of right leg: Plan: was the presenting issue on admission, treated and resolved has chronic lymphedema - would benefit from compression but declining to use tubigrip stockings (8) Acute metabolic encephalopathy: Plan: resolved presented with confusion on day of admission presumed 2nd to sepsis/RLE cellulitis confusion then resolved since the early portion of the admission has intermittently had lethargy/sleepiness and confusion head CT x 2 this admission neg for acute findings of note - we finally received CT head reports from [facility] as well as CT/MRI brain images via PACs spoke with radiology - they compared her outside/old CT head with the CTs this admission - largely unchanged MRI brain WITHOUT acute or chronic stroke most findings are chronic -- MRI here was compared to MRI brain done at [facility] 06/2022 (MRI images from 06/2022 are in PACS) 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 -- acute met encephalopathy from infection (suspected as main culprit); hospital delirium; subclinical seizures; TIA events; poor sleep at night; narcolepsy (see #1 above) vs other EEG did not show seizure focus ; [id number] continue vimpat BID repeat MRI brain 05/25/23 largely unchanged from her MRI brain done 05/10/23 Dr Herson Ashley performed neurology consultation Dr Ashley does not believe she has TURN SUPERVISOR infection; LP not advised fluctuating mental status likely due to recent sepsis/UTI/metabolic factors in the setting of baseline, severe anatomical abnormalities of the brain (prior brain tumor resection on right, encephalomalacia, hygroma, etc) ?narcolepsy or some other form of sleep disorder again see above re: modafanil (9) History of DVT (deep vein thrombosis): Plan: Continue apixaban BID Has IVC filter in place (10) Hypothyroidism: Plan: Continue levothyroxine TSH 2.3 (11) LOAD DISPATCHER (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) shunt status: Plan: placed in 03/2006 at [facility] LOAD DISPATCHER shunt is a Delta non-programmable unit - MR compatible LOAD DISPATCHER shunt appears stable on CT head and MRIs (12) Seizure disorder: Plan: Continue lacosamide EEG done earlier in the stay negative for seizure focus (13) Congestive heart failure: Plan: Chronic diastolic heart failure Echo 02/27 with normal EF had been on QOD lasix but placed on hold last week as urine was concentrated and po intake for a few days was not robust cont to hold for now (14) Hypokalemia: Plan: Replaced Resolved (15) Hypomagnesemia: Plan: replaced resolved (16) Normocytic anemia: Plan: ferritin 58 transferrin low-normal suspect she has had Fe deficiency s/p venofer 300mg IV x 3 doses earlier this admission etiology of low Fe?? fecal occult neg x 2 (03/29, 05/31) could be dietary - eats very poorly, skips meals, does not eat nutritious meals, etc B12 level - mid 300s; supplementing is already on folate supplementation 1mg daily most recent H/H stable repeat Fe studies later in the admission with transferrin sat still only 16% s/p another dose of venofer on 05/22 (this is 4th dose for the entire stay) repeat h/h's have been stable over the last few weeks (17) GERD without esophagitis: Plan: cont PPI reflux/aspiration precautions (18) Chronic anticoagulation: Plan: apixaban BID (19) Depression: Plan: cont prozac 20mg daily (20) History of benign brain tumor: Plan: left sided hemiplegia is presumably due to atrophy/encephalomalacia from her prior brain tumor resection (right sided thalamic astrocytoma per records) she also appears to have 2 meningiomas on her MRI brain -- 1. stable 1.7 cm left lateral calcified extra-axial lesion on image 16 series 8 which likely represents a meningioma. 2. probable meningioma of the falx cerebri anteriorly on image 15 measuring 8 mm. post-discharge she will need -- 1. neurology follow-up to follow seizure d/o, imaging, etc 2. neurosurgery (21) Morbid obesity with BMI of 45.0-49.9, adult: Plan: BMI 49 (22) Abnormal brain MRI: Plan: 05/10/23 brain MRI showed thickening of the pachymeninges she does not have any h/o CSF leak or postural headaches the thickening of the pachymeninges is a nonspecific finding -- could be dural thickening per radiology repeat MRI brain 05/25/23 with stable pachymeninges thus, likely a chronic finding appreciate neurology consultation & recs (23) UTI (urinary tract infection) due to Enterococcus: Plan: earlier in the stay treated with 7d daptomycin (24) Acute severe vertigo: Plan: had a 2 minute episode of spinning associated with double vision on 05/08/23. no tinnitus or hearing changes. if this was a TIA event she is already on Eliquis BID + aspirin 81mg daily. repeat head CT on 05/[address] CTA head/neck - ??left SAP BASIS ADMINISTRATOR stenosis otherwise both studies unremarkable. echo late fall 2022 was wnl. MRI brain was obtained after records from [facility] in [place] arrived. She had her shunt placed there in 2006. LOAD DISPATCHER shunt is a non-programmable Delta device which is MRI compatible. NO acute or chronic CVA seen but numerous findings related to her prior brain tumor resection. -has not recurred (25) Candidal intertrigo: Plan: completed 7 day course of diflucan for such earlier in the stay - c/o vulvar/vaginal itching and severe itching of lower abd wall pannus placed back on diflucan 100mg daily thus, day #6 of such plan 7-10 days cont barrier creams/powders for itching - jarod 60mg BID if vulvar/vaginal complaints persist despite repeat course of diflucan will consult lei maker for pelvic exam and cultures (26) Left knee pain: Plan: x-rays unremarkable uric acid level not elevated crp minimally high has not complained of either knee in over 48 hours Plan had been a resident of [facility] but family asks that she not return to that facility. numerous referrals are pending for SNF placement but most places do not have beds at the present time. left arm itching s/p triamcinolone cream 0.5% -- resolved sister Selin extensively updated by phone on 06/07/23 Selin updated at bedside 06/08 PT/OT appreciate SW assistance in trying to secure a new SNF for Ms Dorado. discussed with care coord 06/09 Admission and Anticipated Discharge Date Admission Date: May 03, 2023 Subjective Cassy looks great this am is awake and talkative and watching TV Not complaining of perineal itching today Still has aguilar Physical Exam 2 Physical Exam: PHYSICAL EXAMINATION Last 24h vital signs reviewed, see documentation in flowsheet General: comfortable appearing, no distress HEENT: Normocephalic, atraumatic, pupils round and equal, sclerae anicteric, no conjunctival injection, moist mucus membranes Lungs: Normal respiratory effort. Clear to auscultation bilaterally. No RRW Heart: Regular rate and rhythm, no murmurs. No JVD Abdomen: Soft, nontender, nondistended. Bowel sounds present. Extremities: Warm, dry, well-perfused. No extremity edema. Aguilar in place clear yellow urine Neuro: Alert and oriented x 4, left facial droop unchanged, LUE weakness unchanged, moves 4 extremities Psych: Normal affect and behavior Results & Data Results & Data Vital Signs (Past 12 Hours) Vital Signs Temp Pulse Resp BP Pulse Ox O2 Del Method 06/10/23 15:42 36.7 C 71 18 127/75 96 Room Air 06/10/23 09:55 Room Air 06/10/23 07:28 36.5 C 75 18 138/83 96 Room Air Laboratory Results 06/10/23 12:11 06/10/23 12:11 PG Care Time/CCT Total # of Minutes Spent Total Time Spent with Patient: Total time spent is greater than 50% in coordination of care (as documented) at patient's floor/unit and/or counseling patient: Coding Level of Care Code 89438 SUB INP/OBS CARE 2/35MIN Diagnoses Catheter-associated urinary tract infection T83.511A; N39.0 Low grade fever R50.9 Daytime somnolence R40.0 Abnormal cortisol level R79.89 Dysphagia R13.10 Sepsis A41.9 Sepsis acute organ dysfunction status: unspecified Sepsis type: sepsis due to unspecified organism Cellulitis of right leg L03.115 Acute metabolic encephalopathy G93.41 History of DVT (deep vein thrombosis) Z86.718 Hypothyroidism E03.9 LOAD DISPATCHER (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) shunt status Z98.2 Seizure disorder G40.909 Congestive heart failure I50.9 Hypokalemia E87.6 Hypomagnesemia E83.42 Normocytic anemia D64.9 GERD without esophagitis K21.9 Chronic anticoagulation Z79.01 Depression F32.A History of benign brain tumor Z86.011 Morbid obesity with BMI of 45.0-49.9, adult E66.01; Z68.42 Abnormal brain MRI R90.89 UTI (urinary tract infection) due to Enterococcus N39.0; B95.2 Acute severe vertigo R42 Candidal intertrigo B37.2 Left knee pain M25.562 (6) Sepsis Sepsis acute organ dysfunction status: unspecified Sepsis type: sepsis due to unspecified organism Qualified Code(s): A41.9 - Sepsis, unspecified organism
--- NOTE | 2023-06-11 18:23 | Hospitalist Progress Note ---
Date of Service June 11, 2023 Assessment & Plan (1) Catheter-associated urinary tract infection: Plan: [place] 75523 CFU ESBL Klebsiella day #4 of ertapenem patient with recurrent UTIs --> CT a/p in 04/2023 without renal stones or other urinary tract anomalies could consider methenamine for UTI prophylaxis after Rx for this UTI discontinue aguilar (2) Daytime somnolence: Plan: extensive w/u done while hospitalized - EEG, CT head, MRI brain x 2, labs, Rx of UTIs, etc despite such had continued with daytime sleepiness much improved with modafanil 100 mg qAM will recommend referral to sleep medicine post-d/c for formal sleep study (typically a 2-day study for narcolepsy) (3) Abnormal cortisol level: Plan: cortisol level = 4, but passed cosyntropin stim test ACTH level returned normal no adrenal insufficiency biochemically or clinically (no hypotension, hypoglycemia, etc) (4) Dysphagia: Plan: passed video swallow earlier this admission normal diet allowed by speech therapy (5) Sepsis: Plan: present on admission 2nd RLE cellulitis - resolved blood cx's negative completed 7+ days of IV/PO abx (6) Cellulitis of right leg: Plan: was the presenting issue on admission, treated and resolved has chronic lymphedema - would benefit from compression but declining to use tubigrip stockings (7) Acute metabolic encephalopathy: Plan: resolved presented with confusion on day of admission presumed 2nd to sepsis/RLE cellulitis confusion then resolved since the early portion of the admission has intermittently had lethargy/sleepiness and confusion head CT x 2 this admission neg for acute findings of note - we finally received CT head reports from [facility] as well as CT/MRI brain images via PACs spoke with radiology - they compared her outside/old CT head with the CTs this admission - largely unchanged MRI brain WITHOUT acute or chronic stroke most findings are chronic -- MRI here was compared to MRI brain done at [facility] 06/2022 (MRI images from 06/2022 are in PACS) 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 -- acute met encephalopathy from infection (suspected as main culprit); hospital delirium; subclinical seizures; TIA events; poor sleep at night; narcolepsy (see #1 above) vs other EEG did not show seizure focus ; [id number] continue vimpat BID repeat MRI brain 2/18/24 largely unchanged from her MRI brain done 05/10/23 Dr Herson Ashley performed neurology consultation Dr Ashley does not believe she has TOW FEEDER infection; LP not advised fluctuating mental status likely due to recent sepsis/UTI/metabolic factors in the setting of baseline, severe anatomical abnormalities of the brain (prior brain tumor resection on right, encephalomalacia, hygroma, etc) ?narcolepsy or some other form of sleep disorder again see above re: modafanil MUCH better last 10 days (8) History of DVT (deep vein thrombosis): Plan: Continue apixaban BID Has IVC filter in place (9) Hypothyroidism: Plan: Continue levothyroxine TSH 2.3 (10) SEWING MACHINE BOBBIN WINDER (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) shunt status: Plan: placed in 03/2006 at [facility] SEWING MACHINE BOBBIN WINDER shunt is a Delta non-programmable unit - MR compatible SEWING MACHINE BOBBIN WINDER shunt appears stable on CT head and MRIs (11) Seizure disorder: Plan: Continue lacosamide EEG done earlier in the stay negative for seizure focus (12) Congestive heart failure: Plan: Chronic diastolic heart failure Echo 02/27 with normal EF had been on QOD lasix but placed on hold last week as urine was concentrated and po intake for a few days was not robust cont to hold for now (13) Hypokalemia: Plan: Replaced Resolved (14) Hypomagnesemia: Plan: replaced resolved (15) Normocytic anemia: Plan: ferritin 58 transferrin low-normal suspect she has had Fe deficiency s/p venofer 300mg IV x 3 doses earlier this admission fecal occult neg x 2 (03/29, 05/31) could be dietary - eats very poorly, skips meals, does not eat nutritious meals, etc B12 level - mid 300s; supplementing is already on folate supplementation 1mg daily repeat Fe studies later in the admission with transferrin sat still only 16% s/p another dose of venofer on 05/22 (this is 4th dose for the entire stay) repeat h/h's have been stable over the last few weeks (16) GERD without esophagitis: Plan: cont PPI reflux/aspiration precautions (17) Chronic anticoagulation: Plan: apixaban BID (18) Depression: Plan: cont prozac 30mg daily (19) History of benign brain tumor: Plan: left sided hemiplegia is presumably due to atrophy/encephalomalacia from her prior brain tumor resection (right sided thalamic astrocytoma per records) she also appears to have 2 meningiomas on her MRI brain -- 1. stable 1.7 cm left lateral calcified extra-axial lesion on image 16 series 8 which likely represents a meningioma. 2. probable meningioma of the falx cerebri anteriorly on image 15 measuring 8 mm. post-discharge she will need -- 1. neurology follow-up to follow seizure d/o, imaging, etc 2. 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 no tinnitus or hearing changes. if this was a TIA event she is already on Eliquis BID + aspirin 81mg daily. repeat head CT on 05/[address] CTA head/neck - ??left COKE DRAWER stenosis otherwise both studies unremarkable. echo late fall 2022 was wnl. MRI brain was obtained after records from [facility] in [place] arrived. She had her shunt placed there in 2006. SEWING MACHINE BOBBIN WINDER shunt is a non-programmable Delta device which is MRI compatible. NO acute or chronic CVA seen but numerous findings related to her prior brain tumor resection. -has not recurred (24) Candidal intertrigo: Plan: completed 7 day course of diflucan for such earlier in the stay - c/o vulvar/vaginal itching and severe itching of lower abd wall pannus placed back on diflucan 100mg daily - day 7 - seems improved plan 7-10 days cont barrier creams/powders for itching - jarod 60mg BID - not clear that this has helped (25) Left knee pain: Plan: x-rays unremarkable uric acid level not elevated crp minimally high no further complaint of knee pain Plan had been a resident of [facility] but family asks that she not return to that facility. numerous referrals are pending for SNF placement but most places do not have beds at the present time. sister Selin extensively updated by phone on 06/07/23 Selin updated at bedside 06/08 PT/OT appreciate SW assistance in trying to secure a new SNF for Ms Dorado. discussed with care coord 06/09 Admission and Anticipated Discharge Date Admission Date: May 03, 2023 Subjective doing well, has itching on buttocks - back/perianal area right now but no further vulvar/vaginal itching Physical Exam Physical Exam: PHYSICAL EXAMINATION Last 24h vital signs reviewed, see documentation in flowsheet exam unchanged 06/10: General: comfortable appearing, no distress HEENT: Normocephalic, atraumatic, pupils round and equal, sclerae anicteric, no conjunctival injection, moist mucus membranes Lungs: Normal respiratory effort. Clear to auscultation bilaterally. No RRW Heart: Regular rate and rhythm, no murmurs. No JVD Abdomen: Soft, nontender, nondistended. Bowel sounds present. Extremities: Warm, dry, well-perfused. No extremity edema. Aguilar in place clear yellow urine Neuro: Alert and oriented x 4, left facial droop unchanged, LUE weakness unch anged, moves 4 extremities Psych: Normal affect and behavior Results & Data Results & Data Vital Signs (Past 12 Hours) Vital Signs Temp Pulse Resp BP Pulse Ox O2 Del Method 06/11/23 15:48 36.9 C 77 18 138/79 93 Room Air 06/11/23 08:30 Room Air 06/11/23 07:56 36.6 C 77 18 113/74 92 Room Air PG Care Time/CCT Total # of Minutes Spent Total Time Spent with Patient: Total time spent is greater than 50% in coordination of care (as documented) at patient's floor/unit and/or counseling patient: Coding Level of Care Code 88430 SUB INP/OBS CARE 05/01MIN Diagnoses Catheter-associated urinary tract infection T83.511A; N39.0 Daytime somnolence R40.0 Abnormal cortisol level R79.89 Dysphagia R13.10 Sepsis A41.9 Sepsis acute organ dysfunction status: unspecified Sepsis type: sepsis due to unspecified organism Cellulitis of right leg L03.115 Acute metabolic encephalopathy G93.41 History of DVT (deep vein thrombosis) Z86.718 Hypothyroidism E03.9 SEWING MACHINE BOBBIN WINDER (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) shunt status Z98.2 Seizure disorder G40.909 Congestive heart failure I50.9 Hypokalemia E87.6 Hypomagnesemia E83.42 Normocytic anemia D64.9 GERD without esophagitis K21.9 Chronic anticoagulation Z79.01 Depression F32.A History of benign brain tumor Z86.011 Morbid obesity with BMI of 45.0-49.9, adult E66.01; Z68.42 Abnormal brain MRI R90.89 UTI (urinary tract infection) due to Enterococcus N39.0; B95.2 Acute severe vertigo R42 Candidal intertrigo B37.2 Left knee pain M25.562 (5) Sepsis Sepsis acute organ dysfunction status: unspecified Sepsis type: sepsis due to unspecified organism Qualified Code(s): A41.9 - Sepsis, unspecified organism
[2023-06-12] MEDS: ADVANCED PROBIOTIC 625 MG CAPSULE PO SCH (08:45)
[2023-06-12] MEDS: CETIRIZINE HCL 10 MG TABLET PO SCH (17:01)
--- NOTE | 2023-06-12 20:09 | Hospitalist Progress Note ---
Date of Service June 12, 2023 Assessment & Plan (1) Catheter-associated urinary tract infection: Plan: [place] cx [place] 95464 CFU ESBL Klebsiella day #5 of ertapenem patient with recurrent UTIs --> CT a/p in 04/2023 without renal stones or other urinary tract anomalies could consider methenamine for UTI prophylaxis after Rx for this UTI discontinued aguilar 06/10, has amandeep (2) Daytime somnolence: Plan: extensive w/u done while hospitalized - EEG, CT head, MRI brain x 2, labs, Rx of UTIs, etc despite such had continued with daytime sleepiness much improved with modafanil 100 mg qAM will recommend referral to sleep medicine post-d/c for formal sleep study (typically a 2-day study for narcolepsy) (3) Abnormal cortisol level: Plan: cortisol level = 4, but passed cosyntropin stim test ACTH level returned normal no adrenal insufficiency biochemically or clinically (no hypotension, hypoglycemia, etc) (4) Dysphagia: Plan: passed video swallow earlier this admission normal diet allowed by speech therapy (5) Sepsis: Plan: present on admission 2nd RLE cellulitis - resolved blood cx's negative completed 7+ days of IV/PO abx (6) Cellulitis of right leg: Plan: was the presenting issue on admission, treated and resolved has chronic lymphedema - would benefit from compression but declining to use tubigrip stockings (7) Acute metabolic encephalopathy: Plan: resolved presented with confusion on day of admission presumed 2nd to sepsis/RLE cellulitis confusion then resolved since the early portion of the admission has intermittently had lethargy/sleepiness and confusion head CT x 2 this admission neg for acute findings of note - we finally received CT head reports from [facility] as well as CT/MRI brain images via PACs spoke with radiology - they compared her outside/old CT head with the CTs this admission - largely unchanged MRI brain WITHOUT acute or chronic stroke most findings are chronic -- MRI here was compared to MRI brain done at [facility] 06/2022 (MRI images from 06/2022 are in PACS) 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 -- acute met encephalopathy from infection (suspected as main culprit); hospital delirium; subclinical seizures; TIA events; poor sleep at night; narcolepsy (see #1 above) vs other EEG did not show seizure focus ; [id number] continue vimpat BID repeat MRI brain 05/25/23 largely unchanged from her MRI brain done 05/10/23 Dr Herson Ashley performed neurology consultation Dr Ashley does not believe she has [employer] infection; LP not advised fluctuating mental status likely due to recent sepsis/UTI/metabolic factors in the setting of baseline, severe anatomical abnormalities of the brain (prior brain tumor resection on right, encephalomalacia, hygroma, etc) ?narcolepsy or some other form of sleep disorder again see above re: modafanil MUCH better last 10 days (8) History of DVT (deep vein thrombosis): Plan: Continue apixaban BID Has IVC filter in place (9) Hypothyroidism: Plan: Continue levothyroxine TSH 2.3 (10) DIAMOND GRINDER (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) shunt status: Plan: placed in 03/2006 at [facility] DIAMOND GRINDER shunt is a Delta non-programmable unit - MR compatible DIAMOND GRINDER shunt appears stable on CT head and MRIs (11) Seizure disorder: Plan: Continue lacosamide EEG done earlier in the stay negative for seizure focus (12) Congestive heart failure: Plan: Chronic diastolic heart failure Echo 02/27 with normal EF had been on QOD lasix but placed on hold last week as urine was concentrated and po intake for a few days was not robust cont to hold for now (13) Hypokalemia: Plan: Replaced Resolved (14) Hypomagnesemia: Plan: replaced resolved (15) Normocytic anemia: Plan: ferritin 58 transferrin low-normal suspect she has had Fe deficiency s/p venofer 300mg IV x 3 doses earlier this admission fecal occult neg x 2 (03/29, 05/31) could be dietary - eats very poorly, skips meals, does not eat nutritious meals, etc B12 level - mid 300s; supplementing is already on folate supplementation 1mg daily repeat Fe studies later in the admission with transferrin sat still only 16% s/p another dose of venofer on 05/22 (this is 4th dose for the entire stay) repeat h/h's have been stable over the last few weeks (16) GERD without esophagitis: Plan: cont PPI reflux/aspiration precautions (17) Chronic anticoagulation: Plan: apixaban BID (18) Depression: Plan: cont prozac 30mg daily (19) History of benign brain tumor: Plan: left sided hemiplegia is presumably due to atrophy/encephalomalacia from her prior brain tumor resection (right sided thalamic astrocytoma per records) she also appears to have 2 meningiomas on her MRI brain -- 1. stable 1.7 cm left lateral calcified extra-axial lesion on image 16 series 8 which likely represents a meningioma. 2. probable meningioma of the falx cerebri anteriorly on image 15 measuring 8 mm. post-discharge she will need -- 1. neurology follow-up to follow seizure d/o, imaging, etc 2. 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 no tinnitus or hearing changes. if this was a TIA event she is already on Eliquis BID + aspirin 81mg daily. repeat head CT on 05/[address] CTA head/neck - ??left PICKET [employer] UNION stenosis otherwise both studies unremarkable. echo late fall 2022 was wnl. MRI brain was obtained after records from [facility] in [place] arrived. She had her shunt placed there in 2006. DIAMOND GRINDER shunt is a non-programmable Delta device which is MRI compatible. NO acute or chronic CVA seen but numerous findings related to her prior brain tumor resection. -has not recurred (24) Candidal intertrigo: Plan: completed 7 day course of diflucan for such earlier in the stay - c/o vulvar/vaginal itching and severe itching of lower abd wall pannus placed back on diflucan 100mg daily - day 7 - seems improved plan 7-10 days cont barrier creams/powders for itching - jarod not effective, discontinued and ordered cetirizine 5 mg daily. consider hydroxyzine but that has increased risk of sedation/confusion which has been a big issue (25) Left knee pain: Plan: x-rays unremarkable uric acid level not elevated crp minimally high no further complaint of knee pain Plan had been a resident of [facility] but family asks that she not return to that facility. numerous referrals are pending for SNF placement but most places do not have beds at the present time. sister Selin extensively updated by phone on 06/07/23 Selin updated at bedside 06/08 PT/OT appreciate SW assistance in trying to secure a new SNF for Ms Dorado. discussed with care coord 06/09 Admission and Anticipated Discharge Date Admission Date: May 03, 2023 Subjective remains alert and awake today itching L side of abdomen no vaginal/vulvar itching Physical Exam Physical Exam: PHYSICAL EXAMINATION Last 24h vital signs reviewed, see documentation in flowsheet exam unchanged 06/11: General: comfortable appearing, no distress HEENT: Normocephalic, atraumatic, pupils round and equal, sclerae anicteric, no conjunctival injection, moist mucus membranes Lungs: Normal respiratory effort. Clear to auscultation bilaterally. No RRW Heart: Regular rate and rhythm, no murmurs. No JVD Abdomen: Soft, nontender, nondistended. Bowel sounds present. No rash on abdomen nixon intertrigo both groins under pannus folds, no vulvar lesions or erythema Extremities: Warm, dry, well-perfused. No extremity edema. purewick in place clear yellow urine Neuro: Alert and oriented x 4, left facial droop unchanged, LUE weakness unchanged, moves 4 extremities Psych: Normal affect and behavior Results & Data Results & Data Vital Signs (Past 12 Hours) Vital Signs Temp Pulse Resp BP Pulse Ox O2 Del Method 06/12/23 19:54 36.9 C 79 18 129/78 93 Room Air 06/12/23 14:10 36.9 C 77 18 131/80 94 Room Air 06/12/23 08:40 Room Air PG Care Time/CCT Total # of Minutes Spent Total Time Spent with Patient: Total time spent is greater than 50% in coordination of care (as documented) at patient's floor/unit and/or counseling patient: Coding Level of Care Code 30414 SUB INP/OBS CARE 2/35MIN Diagnoses Catheter-associated urinary tract infection T83.511A; N39.0 Daytime somnolence R40.0 Abnormal cortisol level R79.89 Dysphagia R13.10 Sepsis A41.9 Sepsis acute organ dysfunction status: unspecified Sepsis type: sepsis due to unspecified organism Cellulitis of right leg L03.115 Acute metabolic encephalopathy G93.41 History of DVT (deep vein thrombosis) Z86.718 Hypothyroidism E03.9 DIAMOND GRINDER (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) shunt status Z98.2 Seizure disorder G40.909 Congestive heart failure I50.9 Hypokalemia E87.6 Hypomagnesemia E83.42 Normocytic anemia D64.9 GERD without esophagitis K21.9 Chronic anticoagulation Z79.01 Depression F32.A History of benign brain tumor Z86.011 Morbid obesity with BMI of 45.0-49.9, adult E66.01; Z68.42 Abnormal brain MRI R90.89 UTI (urinary tract infection) due to Enterococcus N39.0; B95.2 Acute severe vertigo R42 Candidal intertrigo B37.2 Left knee pain M25.562 (5) Sepsis Sepsis acute organ dysfunction status: unspecified Sepsis type: sepsis due to unspecified organism Qualified Code(s): A41.9 - Sepsis, unspecified organism
--- NOTE | 2023-06-13 17:41 | Hospitalist Progress Note ---
Date of Service June 13, 2023 Assessment & Plan (1) Catheter-associated urinary tract infection: Plan: urine cx with 99999 CFU ESBL Klebsiella day #6/ of ertapenem patient with recurrent UTIs --> CT a/p in 04/2023 without renal stones or other urinary tract anomalies could consider methenamine for UTI prophylaxis after Rx for this UTI discontinued aguilar 06/10, has amandeep (2) Daytime somnolence: Plan: extensive w/u done while hospitalized - EEG, CT head, MRI brain x 2, labs, Rx of UTIs, etc despite such had continued with daytime sleepiness much improved with modafanil 100 mg qAM will recommend referral to sleep medicine post-d/c for formal sleep study (typically a 2-day study for narcolepsy) (3) Abnormal cortisol level: Plan: cortisol level = 4, but passed cosyntropin stim test ACTH level returned normal no adrenal insufficiency biochemically or clinically (no hypotension, hypoglycemia, etc) (4) Dysphagia: Plan: passed video swallow earlier this admission normal diet allowed by speech therapy (5) Sepsis: Plan: present on admission 2nd RLE cellulitis - resolved blood cx's negative completed 7+ days of IV/PO abx (6) Cellulitis of right leg: Plan: was the presenting issue on admission, treated and resolved has chronic lymphedema - would benefit from compression but declining to use tubigrip stockings (7) Acute metabolic encephalopathy: Plan: resolved presented with confusion on day of admission presumed 2nd to sepsis/RLE cellulitis confusion then resolved since the early portion of the admission has intermittently had lethargy/sleepiness and confusion head CT x 2 this admission neg for acute findings of note - we finally received CT head reports from [facility] as well as CT/MRI brain images via PACs spoke with radiology - they compared her outside/old CT head with the CTs this admission - largely unchanged MRI brain WITHOUT acute or chronic stroke most findings are chronic -- MRI here was compared to MRI brain done at [facility] 06/2022 (MRI images from 06/2022 are in PACS) 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 -- acute met encephalopathy from infection (suspected as main culprit); hospital delirium; subclinical seizures; TIA events; poor sleep at night; narcolepsy (see #1 above) vs other EEG did not show seizure focus ; [id number] continue vimpat BID repeat MRI brain 05/25/23 largely unchanged from her MRI brain done 05/10/23 Dr Herson Ashley performed neurology consultation Dr Ashley does not believe she has HOTEL SUPERINTENDENT infection; LP not advised fluctuating mental status likely due to recent sepsis/UTI/metabolic factors in the setting of baseline, severe anatomical abnormalities of the brain (prior brain tumor resection on right, encephalomalacia, hygroma, etc) ?narcolepsy or some other form of sleep disorder again see above re: modafanil MUCH better daytime alertness last 10 days (8) History of DVT (deep vein thrombosis): Plan: Continue apixaban BID Has IVC filter in place (9) Hypothyroidism: Plan: Continue levothyroxine TSH 2.3 (10) RECORDS MANAGEMENT DIRECTOR (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) shunt status: Plan: placed in 03/2006 at [facility] RECORDS MANAGEMENT DIRECTOR shunt is a Delta non-programmable unit - MR compatible RECORDS MANAGEMENT DIRECTOR shunt appears stable on CT head and MRIs (11) Seizure disorder: Plan: Continue lacosamide EEG done earlier in the stay negative for seizure focus (12) Congestive heart failure: Plan: Chronic diastolic heart failure Echo 02/27 with normal EF had been on QOD lasix but placed on hold last week as urine was concentrated and po intake for a few days was not robust cont to hold for now (13) Hypokalemia: Plan: Replaced Resolved (14) Hypomagnesemia: Plan: replaced resolved (15) Normocytic anemia: Plan: ferritin 58 transferrin low-normal suspect she has had Fe deficiency s/p venofer 300mg IV x 3 doses earlier this admission fecal occult neg x 2 (03/29, 05/31) could be dietary - eats very poorly, skips meals, does not eat nutritious meals, etc B12 level - mid 300s; supplementing is already on folate supplementation 1mg daily repeat Fe studies later in the admission with transferrin sat still only 16% s/p another dose of venofer on 05/22 (this is 4th dose for the entire stay) repeat h/h's have been stable over the last few weeks - Hct improved since admission (16) GERD without esophagitis: Plan: cont PPI reflux/aspiration precautions (17) Chronic anticoagulation: Plan: apixaban BID (18) Depression: Plan: cont prozac 30mg daily (19) History of benign brain tumor: Plan: left sided hemiplegia is presumably due to atrophy/encephalomalacia from her prior brain tumor resection (right sided thalamic astrocytoma per records) she also appears to have 2 meningiomas on her MRI brain -- 1. stable 1.7 cm left lateral calcified extra-axial lesion on image 16 series 8 which likely represents a meningioma. 2. probable meningioma of the falx cerebri anteriorly on image 15 measuring 8 mm. post-discharge she will need -- 1. neurology follow-up to follow seizure d/o, imaging, etc 2. 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 no tinnitus or hearing changes. if this was a TIA event she is already on Eliquis BID + aspirin 81mg daily. repeat head CT on 05/[address] CTA head/neck - ??left HOP FARMER stenosis otherwise both studies unremarkable. echo late fall 2022 was wnl. MRI brain was obtained after records from [facility] in [place] arrived. She had her shunt placed there in 2006. RECORDS MANAGEMENT DIRECTOR shunt is a non-programmable Delta device which is MRI compatible. NO acute or chronic CVA seen but numerous findings related to her prior brain tumor resection. 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 numerous referrals are pending for SNF placement but most places do not have beds at the present time. sister Selin extensively updated by phone on 06/07/23 Selin updated at bedside 06/08, by phone 06/12 PT/OT appreciate SW assistance in trying to secure a new SNF for Ms Dorado. discussed with care coord 06/09 Admission and Anticipated Discharge Date Admission Date: May 03, 2023 Suresh Madera did not complain of itching today. Started cetirizine yesterday. Was sleeping midday but awoke fairly easily. No pain, no cough or shortness of breath Physical Exam Physical Exam: PHYSICAL EXAMINATION Last 24h vital signs reviewed, see documentation in flowsheet General: woke from sleeping, comfortable appearing, no distress HEENT: Normocephalic, atraumatic, pupils round and equal, sclerae anicteric, no conjunctival injection, moist mucus membranes Lungs: Normal respiratory effort. Clear to auscultation bilaterally. No RRW Heart: Regular rate and rhythm, no murmurs. No JVD Abdomen: Soft, nontender, nondistended. Bowel sounds present. nixon intertrigo both groins under pannus folds, no vulvar lesions or erythema Extremities: Warm, dry, well-perfused. Chronic bilateral LE venous stasis changes with dark/purplish erythema and cobblestoning unchanged, no warmth purewick in place clear yellow urine. reviewed WON photo 06/12 bilateral buttocks with excoriation and bilateral wounds, reviewed last photo 05/27 Neuro: Alert and oriented x hospital and basic situation, left facial droop unchanged, LUE weakness unchanged, moves 4 extremities Psych: Normal affect and behavior Results & Data Results & Data Vital Signs (Past 12 Hours) Vital Signs Temp Pulse Resp BP Pulse Ox O2 Del Method 06/13/23 15:56 36.6 C 72 16 119/75 94 Room Air 06/13/23 07:40 Room Air 06/13/23 07:05 36.7 C 66 16 143/81 H 93 Room Air PG Care Time/CCT Total # of Minutes Spent Total Time Spent with Patient: Total time spent is greater than 50% in coordination of care (as documented) at patient's floor/unit and/or counseling patient: Coding Level of Care Code 82352 SUB INP/OBS CARE 2/35MIN Diagnoses Catheter-associated urinary tract infection T83.511A; N39.0 Daytime somnolence R40.0 Abnormal cortisol level R79.89 Dysphagia R13.10 Sepsis A41.9 Sepsis acute organ dysfunction status: unspecified Sepsis type: sepsis due to unspecified organism Cellulitis of right leg L03.115 Acute metabolic encephalopathy G93.41 History of DVT (deep vein thrombosis) Z86.718 Hypothyroidism E03.9 RECORDS MANAGEMENT DIRECTOR (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) shunt status Z98.2 Seizure disorder G40.909 Congestive heart failure I50.9 Hypokalemia E87.6 Hypomagnesemia E83.42 Normocytic anemia D64.9 GERD without esophagitis K21.9 Chronic anticoagulation Z79.01 Depression F32.A History of benign brain tumor Z86.011 Morbid obesity with BMI of 45.0-49.9, adult E66.01; Z68.42 Abnormal brain MRI R90.89 UTI (urinary tract infection) due to Enterococcus N39.0; B95.2 Acute severe vertigo R42 Candidal intertrigo B37.2 Left knee pain M25.562 (5) Sepsis Sepsis acute organ dysfunction status: unspecified Sepsis type: sepsis due to unspecified organism Qualified Code(s): A41.9 - Sepsis, unspecified organism
[2023-06-14] MEDS: FLUoxetine HCL 20 MG CAP PO SCH (08:46)
[2023-06-14] MEDS: METHENAMINE HIPPURATE 1 GM TAB PO SCH (08:46)
--- NOTE | 2023-06-14 12:54 | Hospitalist Progress Note ---
Date of Service June 14, 2023 Assessment & Plan (1) Catheter-associated urinary tract infection: Plan: [place] cx [place] 32634 CFU ESBL Klebsiella completed 7 days ertapenem 06/13 patient with recurrent UTIs --> CT a/p in 04/2023 without renal stones or other urinary tract anomalies trial methenamine for UTI prophylaxis - started 06/13 discontinued aguilar 06/10, has amandeep (2) Daytime somnolence: Plan: extensive w/u done while hospitalized - EEG, CT head, MRI brain x 2, labs, Rx of UTIs, etc despite such had continued with daytime sleepiness much improved with modafanil 100 mg qAM will recommend referral to sleep medicine post-d/c for formal sleep study (typically a 2-day study for narcolepsy) (3) Abnormal cortisol level: Plan: cortisol level = 4, but passed cosyntropin stim test ACTH level returned normal no adrenal insufficiency biochemically or clinically (no hypotension, hypoglycemia, etc) (4) Dysphagia: Plan: passed video swallow earlier this admission normal diet allowed by speech therapy (5) Sepsis: Plan: present on admission 2nd RLE cellulitis - resolved blood cx's negative completed 7+ days of IV/PO abx (6) Cellulitis of right leg: Plan: was the presenting issue on admission, treated and resolved has chronic lymphedema - would benefit from compression but declining to use tubigrip stockings (7) Acute metabolic encephalopathy: Plan: resolved presented with confusion on day of admission presumed 2nd to sepsis/RLE cellulitis confusion then resolved since the early portion of the admission has intermittently had lethargy/sleepiness and confusion head CT x 2 this admission neg for acute findings of note - we finally received CT head reports from [facility] as well as CT/MRI brain images via PACs spoke with radiology - they compared her outside/old CT head with the CTs this admission - largely unchanged MRI brain WITHOUT acute or chronic stroke most findings are chronic -- MRI here was compared to MRI brain done at [facility] 06/2022 (MRI images from 06/2022 are in PACS) 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 -- acute met encephalopathy from infection (suspected as main culprit); hospital delirium; subclinical seizures; TIA events; poor sleep at night; narcolepsy (see #1 above) vs other EEG did not show seizure focus ; [id number] continue vimpat BID repeat MRI brain 05/25/23 largely unchanged from her MRI brain done 05/10/23 Dr Herson Ashley performed neurology consultation Dr Ashley does not believe she has SCHOOL CLERK infection; LP not advised fluctuating mental status likely due to recent sepsis/UTI/metabolic factors in the setting of baseline, severe anatomical abnormalities of the brain (prior brain tumor resection on right, encephalomalacia, hygroma, etc) ?narcolepsy or some other form of sleep disorder again see above re: modafanil MUCH better daytime alertness last 10 days (8) History of DVT (deep vein thrombosis): Plan: Continue apixaban BID Has IVC filter in place (9) Hypothyroidism: Plan: Continue levothyroxine TSH 2.3 (10) 3RD PRESSMAN (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) shunt status: Plan: placed in 03/2006 at [facility] 3RD PRESSMAN shunt is a Delta non-programmable unit - MR compatible 3RD PRESSMAN shunt appears stable on CT head and MRIs (11) Seizure disorder: Plan: Continue lacosamide EEG done earlier in the stay negative for seizure focus (12) Congestive heart failure: Plan: Chronic diastolic heart failure Echo 02/27 with normal EF had been on QOD lasix but placed on hold last week as urine was concentrated and po intake for a few days was not robust cont to hold for now (13) Hypokalemia: Plan: Replaced Resolved (14) Hypomagnesemia: Plan: replaced resolved (15) Normocytic anemia: Plan: ferritin 58 transferrin low-normal suspect she has had Fe deficiency s/p venofer 300mg IV x 3 doses earlier this admission fecal occult neg x 2 (03/29, 05/31) could be dietary - eats very poorly, skips meals, does not eat nutritious meals, etc B12 level - mid 300s; supplementing is already on folate supplementation 1mg daily repeat Fe studies later in the admission with transferrin sat still only 16% s/p another dose of venofer on 05/22 (this is 4th dose for the entire stay) repeat h/h's have been stable over the last few weeks - Hct improved since admission (16) GERD without esophagitis: Plan: cont PPI reflux/aspiration precautions (17) Chronic anticoagulation: Plan: apixaban BID (18) Depression: Plan: cont prozac increased to 40 mg daily on 06/13 (19) History of benign brain tumor: Plan: left sided hemiplegia is presumably due to atrophy/encephalomalacia from her prior brain tumor resection (right sided thalamic astrocytoma per records) she also appears to have 2 meningiomas on her MRI brain -- 1. stable 1.7 cm left lateral calcified extra-axial lesion on image 16 series 8 which likely represents a meningioma. 2. probable meningioma of the falx cerebri anteriorly on image 15 measuring 8 mm. post-discharge she will need -- 1. neurology follow-up to follow seizure d/o, imaging, etc 2. 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 no tinnitus or hearing changes. repeat head CT on 05/[address] CTA head/neck - ??left POLICE CAPTAIN SENIOR stenosis otherwise both studies unremarkable. echo late fall 2022 was wnl. MRI brain was obtained after records from [facility] in [place] arrived. She had her shunt placed there in 2006. 3RD PRESSMAN shunt is a non-programmable Delta device which is MRI compatible. NO acute or chronic CVA seen but numerous findings related to her prior brain tumor resection. if this was a TIA event she is already on Eliquis BID + aspirin 81mg daily. 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 numerous referrals are pending for SNF placement but most places do not have beds at the present time. sister Selin extensively updated by phone on 06/07/23 Selin updated at bedside 06/08, by phone 06/12 PT/OT appreciate SW assistance in trying to secure a new SNF for Ms oDrado. discussed with care coord 06/09 Admission and Anticipated Discharge Date Admission Date: May 03, 2023 Subjective Awake and watching [employer] I asked her about her baking says she likes sugar cookies the best Says itching is improved Vagina/vulva no longer itching Physical Exam 2 Physical Exam: PHYSICAL EXAMINATION Last 24h vital signs reviewed, see documentation in flowsheet General: awake and alert, watching TV HEENT: Normocephalic, atraumatic, pupils round and equal, sclerae anicteric, no conjunctival injection, moist mucus membranes Lungs: Normal respiratory effort. Clear to auscultation bilaterally. No RRW Heart: Regular rate and rhythm, no murmurs. No JVD Abdomen: Soft, nontender, nondistended. Bowel sounds present. Extremities: Warm, dry, well-perfused. Chronic bilateral LE venous stasis changes with dark/purplish erythema and cobblestoning unchanged, no warmth purewick in place clear yellow urine. Neuro: Alert and oriented x hospital and basic situation, left facial droop unchanged, LUE weakness unchanged, moves 4 extremities Psych: flat affect and behavior Results & Data Results & Data Vital Signs (Past 12 Hours) Vital Signs Temp Pulse Resp BP Pulse Ox O2 Del Method 06/14/23 07:10 Room Air 06/14/23 06:48 36.7 C 70 18 152/76 H 92 Room Air Laboratory Results 06/10/23 12:11 06/10/23 12:11 PG Care Time/CCT Total # of Minutes Spent Total Time Spent with Patient: Total time spent is greater than 50% in coordination of care (as documented) at patient's floor/unit and/or counseling patient: Coding Level of Care Code 85181 SUB INP/OBS CARE 2/35MIN Diagnoses Catheter-associated urinary tract infection T83.511A; N39.0 Daytime somnolence R40.0 Abnormal cortisol level R79.89 Dysphagia R13.10 Sepsis A41.9 Sepsis acute organ dysfunction status: unspecified Sepsis type: sepsis due to unspecified organism Cellulitis of right leg L03.115 Acute metabolic encephalopathy G93.41 History of DVT (deep vein thrombosis) Z86.718 Hypothyroidism E03.9 3RD PRESSMAN (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) shunt status Z98.2 Seizure disorder G40.909 Congestive heart failure I50.9 Hypokalemia E87.6 Hypomagnesemia E83.42 Normocytic anemia D64.9 GERD without esophagitis K21.9 Chronic anticoagulation Z79.01 Depression F32.A History of benign brain tumor Z86.011 Morbid obesity with BMI of 45.0-49.9, adult E66.01; Z68.42 Abnormal brain MRI R90.89 UTI (urinary tract infection) due to Enterococcus N39.0; B95.2 Acute severe vertigo R42 Candidal intertrigo B37.2 Left knee pain M25.562 (5) Sepsis Sepsis acute organ dysfunction status: unspecified Sepsis type: sepsis due to unspecified organism Qualified Code(s): A41.9 - Sepsis, unspecified organism
--- NOTE | 2023-06-15 13:49 | Hospitalist Progress Note ---
Date of Service June 15, 2023 Assessment & Plan (1) Catheter-associated urinary tract infection: [place] 55594 CFU ESBL Klebsiella completed 7 days ertapenem 06/13 patient with recurrent UTIs --> CT a/p in 04/2023 without renal stones or other urinary tract anomalies trial methenamine for UTI prophylaxis - started 06/13 discontinued aguilar 06/10, has amandeep (2) Daytime somnolence: Plan: extensive w/u done while hospitalized - EEG, CT head, MRI brain x 2, labs, Rx of UTIs, etc despite such had continued with daytime sleepiness much improved with modafanil 100 mg qAM will recommend referral to sleep medicine post-d/c for formal sleep study (typically a 2-day study for narcolepsy) (3) Abnormal cortisol level: Plan: cortisol level = 4, but passed cosyntropin stim test ACTH level returned normal no adrenal insufficiency biochemically or clinically (no hypotension, hypoglycemia, etc) (4) Dysphagia: Plan: passed video swallow earlier this admission normal diet allowed by speech therapy (5) Sepsis: Plan: present on admission 2nd RLE cellulitis - resolved blood cx's negative completed 7+ days of IV/PO abx (6) Cellulitis of right leg: Plan: was the presenting issue on admission, treated and resolved has chronic lymphedema - would benefit from compression but declining to use tubigrip stockings (7) Acute metabolic encephalopathy: Plan: resolved presented with confusion on day of admission presumed 2nd to sepsis/RLE cellulitis confusion then resolved since the early portion of the admission has intermittently had lethargy/sleepiness and confusion head CT x 2 this admission neg for acute findings of note - we finally received CT head reports from [facility] as well as CT/MRI brain images via PACs spoke with radiology - they compared her outside/old CT head with the CTs this admission - largely unchanged MRI brain WITHOUT acute or chronic stroke most findings are chronic -- MRI here was compared to MRI brain done at [facility] 06/2022 (MRI images from 06/2022 are in PACS) 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 -- acute met encephalopathy from infection (suspected as main culprit); hospital delirium; subclinical seizures; TIA events; poor sleep at night; narcolepsy (see #1 above) vs other EEG did not show seizure focus ; [id number] continue vimpat BID repeat MRI brain 05/25/23 largely unchanged from her MRI brain done 05/10/23 Dr Herson Ashley performed neurology consultation Dr Ashley does not believe she has VICE PRESIDENT NETWORK DEVELOPMENT infection; LP not advised fluctuating mental status likely due to recent sepsis/UTI/metabolic factors in the setting of baseline, severe anatomical abnormalities of the brain (prior brain tumor resection on right, encephalomalacia, hygroma, etc) ?narcolepsy or some other form of sleep disorder again see above re: modafanil MUCH better daytime alertness last 10 days (8) History of DVT (deep vein thrombosis): Plan: Continue apixaban BID Has IVC filter in place (9) Hypothyroidism: Plan: Continue levothyroxine TSH 2.3 (10) [facility] [facility] [facility] (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) shunt status: Plan: placed in 03/2006 at [facility] shunt is a Delta non-programmable unit - MR compatible [facility] shunt appears stable on CT head and MRIs (11) Seizure disorder: Plan: Continue lacosamide EEG done earlier in the stay negative for seizure focus (12) Congestive heart failure: Plan: Chronic diastolic heart failure Echo 02/27 with normal EF had been on QOD lasix but placed on hold last week as urine was concentrated and po intake for a few days was not robust cont to hold for now (13) Hypokalemia: Plan: Replaced Resolved (14) Hypomagnesemia: Plan: replaced resolved (15) Normocytic anemia: Plan: ferritin 58 transferrin low-normal suspect she has had Fe deficiency s/p venofer 300mg IV x 3 doses earlier this admission fecal occult neg x 2 (03/29, 05/31) could be dietary - eats very poorly, skips meals, does not eat nutritious meals, etc B12 level - mid 300s; supplementing is already on folate supplementation 1mg daily repeat Fe studies later in the admission with transferrin sat still only 16% s/p another dose of venofer on 05/22 (this is 4th dose for the entire stay) repeat h/h's have been stable over the last few weeks - Hct improved since admission (16) GERD without esophagitis: Plan: cont PPI reflux/aspiration precautions (17) Chronic anticoagulation: Plan: apixaban BID (18) Depression: Plan: cont prozac increased to 40 mg daily on 06/13 (19) History of benign brain tumor: Plan: left sided hemiplegia is presumably due to atrophy/encephalomalacia from her prior brain tumor resection (right sided thalamic astrocytoma per records) she also appears to have 2 meningiomas on her MRI brain -- 1. stable 1.7 cm left lateral calcified extra-axial lesion on image 16 series 8 which likely represents a meningioma. 2. probable meningioma of the falx cerebri anteriorly on image 15 measuring 8 mm. post-discharge she will need -- 1. neurology follow-up to follow seizure d/o, imaging, etc 2. 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 no tinnitus or hearing changes. repeat head CT on 05/[address] CTA head/neck - ??left STRIPPER SOFT PLASTIC stenosis otherwise both studies unremarkable. echo late fall 2022 was wnl. MRI brain was obtained after records from [facility] in [place] arrived. She had her shunt placed there in 2006. [facility] shunt is a non-programmable Delta device which is MRI compatible. NO acute or chronic CVA seen but numerous findings related to her prior brain tumor resection. if this was a TIA event she is already on Eliquis BID + aspirin 81mg daily. 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 numerous referrals are pending for SNF placement but most places do not have beds at the present time. Selin updated at bedside 06/08, by phone 06/12 PT/OT appreciate SW assistance in trying to secure a new SNF for Ms Dorado. discussed with care coord 06/09 Admission and Anticipated Discharge Date Admission Date: May 03, 2023 Subjective awake and alert watching TV talkative and interactive today still has itching but this has improved no further vulvar/vaginal itching Physical Exam Physical Exam: PHYSICAL EXAMINATION Last 24h vital signs reviewed, see documentation in flowsheet exam unchanged 06/14 General: awake and alert, watching TV HEENT: Normocephalic, atraumatic, pupils round and equal, sclerae anicteric, no conjunctival injection, moist mucus membranes Lungs: Normal respiratory effort. Clear to auscultation bilaterally. No RRW Heart: Regular rate and rhythm, no murmurs. No JVD Abdomen: Soft, nontender, nondistended. Bowel sounds present. Extremities: Warm, dry, well-perfused. Chronic bilateral LE venous stasis edema with skin changes with dark/purplish erythema and cobblestoning unchanged, no warmth purewick in place clear yellow urine. no vulvar erythema Neuro: Alert and oriented x hospital and basic situation, marker talkative today, left facial droop unchanged, LUE weakness unchanged, moves 4 extremities Psych: flat affect and behavior Results & Data Results & Data Vital Signs (Past 12 Hours) Vital Signs Temp Pulse Resp BP Pulse Ox O2 Del Method 06/15/23 10:52 36.6 C 70 18 122/78 93 Room Air 06/15/23 09:00 Room Air PG Care Time/CCT Total # of Minutes Spent Total Time Spent with Patient: Total time spent is greater than 50% in coordination of care (as documented) at patient's floor/unit and/or counseling patient: Coding Level of Care Code 93957 SUB INP/OBS CARE 05/01MIN Diagnoses Catheter-associated urinary tract infection T83.511A; N39.0 Daytime somnolence R40.0 Abnormal cortisol level R79.89 Dysphagia R13.10 Sepsis A41.9 Sepsis acute organ dysfunction status: unspecified Sepsis type: sepsis due to unspecified organism Cellulitis of right leg L03.115 Acute metabolic encephalopathy G93.41 History of DVT (deep vein thrombosis) Z86.718 Hypothyroidism E03.9 [facility] (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) shunt status Z98.2 Seizure disorder G40.909 Congestive heart failure I50.9 Hypokalemia E87.6 Hypomagnesemia E83.42 Normocytic anemia D64.9 GERD without esophagitis K21.9 Chronic anticoagulation Z79.01 Depression F32.A History of benign brain tumor Z86.011 Morbid obesity with BMI of 45.0-49.9, adult E66.01; Z68.42 Abnormal brain MRI R90.89 UTI (urinary tract infection) due to Enterococcus N39.0; B95.2 Acute severe vertigo R42 Candidal intertrigo B37.2 Left knee pain M25.562 (5) Sepsis Sepsis acute organ dysfunction status: unspecified Sepsis type: sepsis due to unspecified organism Qualified Code(s): A41.9 - Sepsis, unspecified organism
--- NOTE | 2023-06-16 15:37 | Hospitalist Progress Note ---
Date of Service June 16, 2023 Assessment & Plan (1) Daytime somnolence: Plan: extensive w/u done while hospitalized - EEG, CT head, MRI brain x 2, labs, Rx of UTIs, etc despite such had continued with daytime sleepiness much improved with modafanil 100 mg qAM will recommend referral to sleep medicine post-d/c for formal sleep study (typically a 2-day study for narcolepsy) - sleepy today however has been completely alert previous 6 days. Caution with addition of cetirizine which can be sedating (2) Catheter-associated urinary tract infection: Plan: [place] 29700 CFU ESBL Klebsiella completed 7 days ertapenem 06/13 patient with recurrent UTIs --> CT a/p in 04/2023 without renal stones or other urinary tract anomalies trial methenamine for UTI prophylaxis - started 06/13 discontinued aguilar 06/10, has purewick (3) Abnormal cortisol level: Plan: cortisol level = 4, but passed cosyntropin stim test ACTH level returned normal no adrenal insufficiency biochemically or clinically (no hypotension, hypoglycemia, etc) (4) Dysphagia: Plan: passed video swallow earlier this admission normal diet allowed by speech therapy (5) Sepsis: Plan: present on admission 2nd RLE cellulitis - resolved blood cx's negative completed 7+ days of IV/PO abx (6) Cellulitis of right leg: Plan: was the presenting issue on admission, treated and resolved has chronic lymphedema - would benefit from compression but declining to use tubigrip stockings (7) Acute metabolic encephalopathy: Plan: resolved presented with confusion on day of admission presumed 2nd to sepsis/RLE cellulitis confusion then resolved since the early portion of the admission has intermittently had lethargy/sleepiness and confusion head CT x 2 this admission neg for acute findings of note - we finally received CT head reports from [facility] as well as CT/MRI brain images via PACs spoke with radiology - they compared her outside/old CT head with the CTs this admission - largely unchanged MRI brain WITHOUT acute or chronic stroke most findings are chronic -- MRI here was compared to MRI brain done at [facility] 06/2022 (MRI images from 06/2022 are in PACS) 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 -- acute met encephalopathy from infection (suspected as main culprit); hospital delirium; subclinical seizures; TIA events; poor sleep at night; narcolepsy (see #1 above) vs other EEG did not show seizure focus ; [id number] continue vimpat BID repeat MRI brain 05/25/23 largely unchanged from her MRI brain done 05/10/23 Dr Herson Ashley performed neurology consultation Dr Ashley does not believe she has LOAD TESTER infection; LP not advised fluctuating mental status likely due to recent sepsis/UTI/metabolic factors in the setting of baseline, severe anatomical abnormalities of the brain (prior brain tumor resection on right, encephalomalacia, hygroma, etc) ?narcolepsy or some other form of sleep disorder again see above re: modafanil MUCH better daytime alertness last 10 days (8) History of DVT (deep vein thrombosis): Plan: Continue apixaban BID Has IVC filter in place (9) Hypothyroidism: Plan: Continue levothyroxine TSH 2.3 (10) 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 (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) shunt status: Plan: placed in 03/2006 at [facility] 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 shunt is a Delta non-programmable unit - MR compatible 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 shunt appears stable on CT head and MRIs (11) Seizure disorder: Plan: Continue lacosamide EEG done earlier in the stay negative for seizure focus (12) Congestive heart failure: Plan: Chronic diastolic heart failure Echo 02/27 with normal EF - oral Lasix currently held (13) Hypokalemia: Plan: Replaced Resolved (14) Hypomagnesemia: Plan: replaced resolved (15) Normocytic anemia: Plan: ferritin 58 transferrin low-normal suspect she has had Fe deficiency s/p venofer 300mg IV x 3 doses earlier this admission fecal occult neg x 2 (03/29, 05/31) could be dietary - eats very poorly, skips meals, does not eat nutritious meals, etc B12 level - mid 300s; supplementing is already on folate supplementation 1mg daily repeat Fe studies later in the admission with transferrin sat still only 16% s/p another dose of venofer on 05/22 (this is 4th dose for the entire stay) repeat h/h's have been stable over the last few weeks - Hct improved since admission (16) GERD without esophagitis: Plan: cont PPI reflux/aspiration precautions (17) Chronic anticoagulation: Plan: apixaban BID (18) Depression: Plan: cont prozac increased to 40 mg daily on 06/13 (19) History of benign brain tumor: Plan: left sided hemiplegia is presumably due to atrophy/encephalomalacia from her prior brain tumor resection (right sided thalamic astrocytoma per records) she also appears to have 2 meningiomas on her MRI brain -- 1. stable 1.7 cm left lateral calcified extra-axial lesion on image 16 series 8 which likely represents a meningioma. 2. probable meningioma of the falx cerebri anteriorly on image 15 measuring 8 mm. post-discharge she will need -- 1. neurology follow-up to follow seizure d/o, imaging, etc 2. 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 no tinnitus or hearing changes. repeat head CT on 05/[address] CTA head/neck - ??left RIB MATCHER AND FITTER stenosis otherwise both studies unremarkable. echo late fall 2022 was wnl. MRI brain was obtained after records from [facility] in [place] arrived. She had her shunt placed there in 2006. 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 shunt is a non-programmable Delta device which is MRI compatible. NO acute or chronic CVA seen but numerous findings related to her prior brain tumor resection. if this was a TIA event she is already on Eliquis BID + aspirin 81mg daily. 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 numerous referrals are pending for SNF placement but most places do not have beds at the present time. Selin updated at bedside 06/08, by phone 06/12 PT/OT -weekly labs - AM BMP and CBC ordered appreciate SW assistance in trying to secure a new SNF for Ms Dorado. discussed with care coord 06/09 Admission and Anticipated Discharge Date Admission Date: May 03, 2023 Subjective Melissa reports itching is a little better, I saw her midmorning however and she was pretty sleepy Physical Exam Physical Exam: PHYSICAL EXAMINATION Last 24h vital signs reviewed, see documentation in flowsheet General: sleepy but woke up and talk to me HEENT: Normocephalic, atraumatic, pupils round and equal, sclerae anicteric, no conjunctival injection, moist mucus membranes Lungs: Normal respiratory effort. Clear to auscultation bilaterally. No RRW Heart: Regular rate and rhythm, no murmurs. No JVD Abdomen: Soft, nontender, nondistended. Bowel sounds present. Extremities: Warm, dry, well-perfused. Chronic bilateral LE venous stasis edema with skin changes with dark/purplish erythema and cobblestoning unchanged, no warmth purewick in place clear yellow urine. no vulvar erythema Neuro: sleepy but aroused to voice and spoke to me a little bit, left facial droop unchanged, LUE weakness unchanged, moves 4 extremities Psych: flat affect and behavior Results & Data Results & Data Vital Signs (Past 12 Hours) Vital Signs Temp Pulse Resp BP Pulse Ox O2 Del Method 06/16/23 14:17 36.7 C 71 16 122/70 95 Room Air 06/16/23 08:00 Room Air 06/16/23 07:00 36.8 C 79 16 109/65 94 Room Air PG Care Time/CCT Total # of Minutes Spent Total Time Spent with Patient: Total time spent is greater than 50% in coordination of care (as documented) at patient's floor/unit and/or counseling patient: Coding Level of Care Code 26772 SUB INP/OBS CARE 1/25MIN Diagnoses Daytime somnolence R40.0 Catheter-associated urinary tract infection T83.511A; N39.0 Abnormal cortisol level R79.89 Dysphagia R13.10 Sepsis A41.9 Sepsis acute organ dysfunction status: unspecified Sepsis type: sepsis due to unspecified organism Cellulitis of right leg L03.115 Acute metabolic encephalopathy G93.41 History of DVT (deep vein thrombosis) Z86.718 Hypothyroidism E03.9 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 (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) shunt status Z98.2 Seizure disorder G40.909 Congestive heart failure I50.9 Hypokalemia E87.6 Hypomagnesemia E83.42 Normocytic anemia D64.9 GERD without esophagitis K21.9 Chronic anticoagulation Z79.01 Depression F32.A History of benign brain tumor Z86.011 Morbid obesity with BMI of 45.0-49.9, adult E66.01; Z68.42 Abnormal brain MRI R90.89 UTI (urinary tract infection) due to Enterococcus N39.0; B95.2 Acute severe vertigo R42 Candidal intertrigo B37.2 Left knee pain M25.562 (5) Sepsis Sepsis acute organ dysfunction status: unspecified Sepsis type: sepsis due to unspecified organism Qualified Code(s): A41.9 - Sepsis, unspecified organism
--- NOTE | 2023-06-17 17:44 | Hospitalist Progress Note ---
Date of Service June 17, 2023 Assessment & Plan (1) Catheter-associated urinary tract infection: Plan: recent ESBL Klebsiella UTI s/p 7 day course of ertapenem patient with recurrent UTIs --> CT a/p in 04/2023 without renal stones or other urinary tract anomalies had VRE UTI earlier in this admission agree with methenamine for UTI prophylaxis aguilar has been removed (2) Daytime somnolence: Plan: extensive w/u done while hospitalized - EEG, CT head, MRI brain x 2, labs, Rx of UTIs, etc despite such had continued with daytime sleepiness Dr Muro trialed her on modafanil 100mg daily in the event she has a form of narcolepsy or similar has tolerated such and having a favorable response will recommend referral to sleep medicine post-d/c for formal sleep study (typically a 2-day study for narcolepsy) (3) Sepsis: Plan: present on admission 2nd RLE cellulitis - resolved no sepsis since that time despite recurrent UTIs (4) Cellulitis of right leg: Plan: resolved has chronic lymphedema - would benefit from compression but declining to use tub igrip stockings (5) Acute metabolic encephalopathy: Plan: resolved presented with confusion on day of admission presumed 2nd to sepsis/RLE cellulitis confusion then resolved since the early portion of the admission has intermittently had lethargy/sleepiness and confusion head CT x 2 this admission neg for acute findings of note - we finally received CT head reports from [facility] as well as CT/MRI brain images via PACs spoke with radiology - they compared her outside/old CT head with the CTs this admission - largely unchanged MRI brain WITHOUT acute or chronic stroke most findings are chronic -- MRI here was compared to MRI brain done at [facility] 06/2022 (MRI images from 06/2022 are in PACS) 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 -- acute met encephalopathy from infection (suspected as main culprit); hospital delirium; subclinical seizures; TIA events; poor sleep at night; narcolepsy (see #1 above) vs other EEG did not show seizure focus ; [id number] continue vimpat BID repeat MRI brain 05/25/23 largely unchanged from her MRI brain done 05/10/23 Dr Herson Ashley performed neurology consultation Dr Ashley does not believe she has CUTTING 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 infection; LP not advised fluctuating mental status likely due to recent sepsis/UTI/metabolic factors in the setting of baseline, severe anatomical abnormalities of the brain (prior brain tumor resection on right, encephalomalacia, hygroma, etc) ?narcolepsy or some other form of sleep disorder again see above re: modafanil I do question if patient has developed cognitive impairment in the face of her prior brain tumor, resection, and significantly abnormal brain anatomy (6) History of DVT (deep vein thrombosis): Plan: Continue apixaban BID Has IVC filter in place (7) Hypothyroidism: Plan: Continue levothyroxine TSH 2.3 (8) MAPPING ANALYST (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) shunt status: Plan: placed in 03/2006 at [facility] MAPPING ANALYST shunt is a Delta non-programmable unit - MR compatible MAPPING ANALYST shunt appears stable on CT head and MRIs (9) Seizure disorder: Plan: Continue lacosamide EEG done earlier in the stay negative for seizure focus (10) Congestive heart failure: Plan: Chronic diastolic heart failure Echo 02/27 with normal EF use lasix prn (11) Hypokalemia: Plan: Replaced Resolved (12) Hypomagnesemia: Plan: replaced resolved (13) Normocytic anemia: Plan: ferritin 58 transferrin low-normal suspect she has had Fe deficiency s/p venofer 300mg IV x 4 doses total this admission etiology of low Fe?? fecal occult neg x 2 (03/29, 05/31) could be dietary - prior to admission was eating very poorly, would skips meals, was not eating nutritious meals, etc B12 level - mid 300s; supplementing is already on folate supplementation 1mg daily most recent H/H stable (>10/30, respectively) (14) GERD without esophagitis: Plan: cont PPI reflux/aspiration precautions (15) Chronic anticoagulation: Plan: apixaban BID (16) Depression: Plan: cont prozac 20mg daily (17) History of benign brain tumor: Plan: left sided hemiplegia is presumably due to atrophy/encephalomalacia from her prior brain tumor resection (right sided thalamic astrocytoma per records) she also appears to have 2 meningiomas on her MRI brain -- 1. stable 1.7 cm left lateral calcified extra-axial lesion on image 16 series 8 which likely represents a meningioma. 2. probable meningioma of the falx cerebri anteriorly on image 15 measuring 8 mm. post-discharge she will need -- 1. neurology follow-up to follow seizure d/o, imaging, etc 2. 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 no tinnitus or hearing changes. if this was a TIA event she is already on Eliquis BID + aspirin 81mg daily. repeat head CT on 05/[address] CTA head/neck - ??left POLISHER SAND stenosis otherwise both studies unremarkable. echo late fall 2022 was wnl. MRI brain was obtained after records from [facility] in [place] arrived. She had her shunt placed there in 2006. MAPPING ANALYST shunt is a non-programmable Delta device which is MRI compatible. NO acute or chronic CVA seen but numerous findings related to her prior brain tumor resection. (22) Candidal intertrigo: Plan: completed 7 day course of diflucan for such earlier in the stay - c/o vulvar/vaginal itching and severe itching of lower abd wall pannus placed back on diflucan 100mg daily for an additional 7 days cont barrier creams/powders for itching - zyrtec Plan had been a resident of [facility] but family asks that she not return to that facility. numerous referrals for SNF placement have been made over last 30+ days to no avail. awaiting referral to a location in [place]. PT/OT when willing to participate (often declines to participate, or if she does, she often makes little to no progress. Admission and Anticipated Discharge Date Admission Date: May 03, 2023 Subjective no events overnight speaking with nursing no acute issues or needs patient denies any significant itching today when I came to see her she said "I want to get up; I can walk" had a stool this am eating near 100% of meals Review of Systems Review of Systems: gen - "I feel fine" cv - no chest pain pulm - no dyspnea GI - no pain Physical Exam Physical Exam: gen - obese, NAD, awake/alert, lying in bed comfortably mouth - MMM neck - no JVD heart - RRR, s1 s2, no murmur lungs - CTA b/l, decreased BS bases abd - soft NT BS+ ND ext - lymphedema b/l - unchanged; pulses 2+ b/l neuro - hemiplegia LUE/LLE with contracture of LUE skin - stasis changes b/l shins unchanged Results & Data Results & Data Vital Signs (Past 12 Hours) Vital Signs Temp Pulse Resp BP Pulse Ox O2 Del Method 06/17/23 14:39 36.8 C 73 18 142/79 H 96 Room Air 06/17/23 10:35 Room Air 06/17/23 07:12 36.5 C 60 16 142/83 H 96 Room Air PG Care Time/CCT Total # of Minutes Spent Total Time Spent with Patient: Total time spent is greater than 50% in coordination of care (as documented) at patient's floor/unit and/or counseling patient: Coding Level of Care Code 75308 SUB INP/OBS CARE 1/25MIN Diagnoses Catheter-associated urinary tract infection T83.511A; N39.0 Daytime somnolence R40.0 Sepsis A41.9 Sepsis acute organ dysfunction status: unspecified Sepsis type: sepsis due to unspecified organism Cellulitis of right leg L03.115 Acute metabolic encephalopathy G93.41 History of DVT (deep vein thrombosis) Z86.718 Hypothyroidism E03.9 MAPPING ANALYST (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) shunt status Z98.2 Seizure disorder G40.909 Congestive heart failure I50.9 Hypokalemia E87.6 Hypomagnesemia E83.42 Normocytic anemia D64.9 GERD without esophagitis K21.9 Chronic anticoagulation Z79.01 Depression F32.A History of benign brain tumor Z86.011 Morbid obesity with BMI of 45.0-49.9, adult E66.01; Z68.42 Abnormal brain MRI R90.89 UTI (urinary tract infection) due to Enterococcus N39.0; B95.2 Acute severe vertigo R42 Candidal intertrigo B37.2 (3) Sepsis Sepsis acute organ dysfunction status: unspecified Sepsis type: sepsis due to unspecified organism Qualified Code(s): A41.9 - Sepsis, unspecified organism
[2023-06-17] MEDS: CETIRIZINE HCL 10 MG TABLET PO SCH (20:17)
[2023-06-18 07:01] LABS: Hemoglobin 10.5 g/dl (12.0-16.0); Mean Corpuscular Hemoglobin 25.1 pg (25.0-34.0); Mean Corpuscular Hgb Conc 29.2 g/dL (32.0-36.0); Mean Corpuscular Volume 86.1 fL (80.0-100.0); Mean Platelet Volume 10.9 fL (9.4-12.4); Nucleated RBC # (auto) 0.03 K/uL (0.00-0.12); Nucleated RBC % (auto) 0.6 %; Platelet Count 247 K/uL (130-400); RDW Coefficient of Variation 22.5 % (11.5-14.5); RDW Standard Deviation 69.2 fL (36.4-46.3); Red Blood Count 4.18 M/uL (4.20-5.40); White Blood Count 4.97 K/ul (4.8-10.8)
[2023-06-18 09:28] LABS: Calcium 8.8 mg/dl (8.6-10.3); Potassium 4.3 mmol/L (3.5-5.1)
[2023-06-18 09:34] LABS: BUN Creatinine Ratio 27.6 (10-20); Creatinine Clr Calc Pharmacy 125.2 ml/min; Est GFR (African American) 121.1 ml/min; Est GFR (Non-African American) 104.5 ml/min
--- NOTE | 2023-06-18 20:29 | Hospitalist Progress Note ---
Date of Service June 18, 2023 Assessment & Plan (1) Catheter-associated urinary tract infection: Plan: recent ESBL Klebsiella UTI s/p 7 day course of ertapenem patient with recurrent UTIs --> CT a/p in 04/2023 without renal stones or other urinary tract anomalies had VRE UTI earlier in this admission as well agree with methenamine for UTI prophylaxis aguilar has been removed voiding spontaneously (incontinent) (2) Daytime somnolence: Plan: extensive w/u done while hospitalized - EEG, CT head, MRI brain x 2, labs, Rx of UTIs, etc despite such had continued with daytime sleepiness Dr Muro trialed her on modafanil 100mg daily in the event she has a form of narcolepsy or similar has tolerated such and having a favorable response will recommend referral to sleep medicine post-d/c for formal sleep study (typically a 2-day study for narcolepsy) (3) Sepsis: Plan: present on admission 2nd RLE cellulitis - resolved no sepsis since that time despite recurrent UTIs (4) Cellulitis of right leg: Plan: resolved has chronic lymphedema - would benefit from compression but declining to use tubigrip stockings stasis changes on legs unchanged and stable (5) Acute metabolic encephalopathy: Plan: resolved presented with confusion on day of admission presumed 2nd to sepsis/RLE cellulitis confusion then resolved since the early portion of the admission has intermittently had lethargy/sleepiness and pleasant confusion head CT x 2 this admission neg for acute findings of note - we received CT head reports from [facility] as well as CT/MRI brain images via PACs spoke with radiology - they compared her outside/old CT head with the CTs this admission - largely unchanged MRI brain WITHOUT acute or chronic stroke most findings are chronic -- MRI here was compared to MRI brain done at [facility] 06/2022 (MRI images from 06/2022 are in PACS) 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 -- acute met encephalopathy from infection (suspected as main culprit); hospital delirium; subclinical seizures; TIA events; poor sleep at night; narcolepsy (see #1 above) vs other EEG did not show seizure focus ; [id number] continue vimpat BID repeat MRI brain 05/25/23 largely unchanged from her MRI brain done 05/10/23 Dr Herson Ashley performed neurology consultation Dr Ashley does not believe she has SHOTGUN SHELL REPRINTING 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 infection; LP not advised fluctuating mental status likely due to recent sepsis/UTI/metabolic factors in the setting of baseline, severe anatomical abnormalities of the brain (prior brain tumor resection on right, encephalomalacia, hygroma, etc) ?narcolepsy or some other form of sleep disorder again see above re: modafanil I suspect patient has cognitive impairment in the face of her prior brain tumor, resection, and significantly abnormal brain anatomy (6) History of DVT (deep vein thrombosis): Plan: Continue apixaban BID Has IVC filter in place (7) Hypothyroidism: Plan: Continue levothyroxine TSH 2.3 (8) DOG CATCHER (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) shunt status: Plan: placed in 03/2006 at [facility] DOG CATCHER shunt is a Delta non-programmable unit - MR compatible DOG CATCHER shunt appears stable on CT head and MRIs (9) Seizure disorder: Plan: Continue lacosamide EEG done earlier in the stay negative for seizure focus (10) Congestive heart failure: Plan: Chronic diastolic heart failure Echo 02/27 with normal EF patient to be weighed today since she is out of bed resume lasix if weight is up significantly (11) Hypokalemia: Plan: Replaced Resolved (12) Hypomagnesemia: Plan: replaced resolved (13) Normocytic anemia: Plan: ferritin 58 transferrin low-normal suspect she has had Fe deficiency s/p venofer 300mg IV x 4 doses total this admission etiology of low Fe?? fecal occult neg x 2 (03/29, 05/31) could be dietary - prior to admission was eating very poorly, would skips meals, was not eating nutritious meals, etc B12 level - mid 300s; supplementing is already on folate supplementation 1mg daily Hb today 10.5 and continues to trend up over time (14) GERD without esophagitis: Plan: cont PPI reflux/aspiration precautions (15) Chronic anticoagulation: Plan: apixaban BID (16) Depression: Plan: cont prozac 20mg daily (17) History of benign brain tumor: Plan: left sided hemiplegia is presumably due to atrophy/encephalomalacia from her prior brain tumor resection (right sided thalamic astrocytoma per records) she also appears to have 2 meningiomas on her MRI brain -- 1. stable 1.7 cm left lateral calcified extra-axial lesion on image 16 series 8 which likely represents a meningioma. 2. probable meningioma of the falx cerebri anteriorly on image 15 measuring 8 mm. post-discharge she will need -- 1. neurology follow-up to follow seizure d/o, imaging, etc 2. 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 no tinnitus or hearing changes. if this was a TIA event she is already on Eliquis BID + aspirin 81mg daily. repeat head CT on 05/[address] CTA head/neck - ??left AIR DIRECTOR stenosis otherwise both studies unremarkable. echo late fall 2022 was wnl. MRI brain was obtained after records from [facility] in [place] arrived. She had her shunt placed there in 2006. DOG CATCHER shunt is a non-programmable Delta device which is MRI compatible. NO acute or chronic CVA seen but numerous findings related to her prior brain tumor resection. No recurrent episodes since 05/08. (22) Candidal intertrigo: Plan: completed 14 days in total of diflucan for such earlier in the stay cont barrier creams/powders for itching - zyrtec 5mg HS Plan had been a resident of [facility] but family asks that she not return to that facility. numerous referrals for SNF placement have been made over last 30+ days to no avail. awaiting referral to a location in [place]. PT/OT when willing to participate (often declines to participate, or if she does, she often makes little to no progress) did get oob to chair today with significant encouragement (per staff) Admission and Anticipated Discharge Date Admission Date: May 03, 2023 Subjective no events overnight per nursing staff her lower back & buttocks continue to have skin breakdown - wound care reconsulted patient did get OOB to chair today with use of lift during my visit she offered no complaints stated "I'm going home soon - I'm going to live with my sister" Review of Systems Review of Systems: neuro - no headache musculo - denies arm pain, leg pain, or knee pain (but had ice packs on L knee) cv - no cp pulm - no dyspnea GI - no abd pain ; +stool earlier today Physical Exam Physical Exam: gen - obese, NAD, awake/alert, sitting in chair comfortably mouth - MMM neck - no JVD heart - RRR, s1 s2, no murmur lungs - CTA b/l, decreased BS bases abd - soft NT BS+ ND ext - lymphedema b/l - unchanged; pulses 2+ b/l neuro - hemiplegia LUE/LLE with contracture of LUE skin - stasis changes b/l shins unchanged Results & Data Results & Data Vital Signs (Past 12 Hours) Vital Signs Temp Pulse Resp BP Pulse Ox O2 Del Method 06/18/23 19:59 36.5 C 78 18 127/78 95 Room Air 06/18/23 15:00 Room Air Laboratory Results Laboratory Results - last 24 hr 06/18/23 06:25 WBC 4.97 RBC 4.18 L Hgb 10.5 L Hct 36.0 L MCV 86.1 MCH 25.1 MCHC 29.2 L RDW Std Deviation 69.2 H RDW Coeff of Neo 22.5 H Plt Count 247 MPV 10.9 Absolute Nucleated RBC 0.03 Nucleated RBC % (auto) 0.6 Sodium 138 Potassium 4.3 Chloride 104 Carbon Dioxide 24 Anion Gap 10 BUN 16 Creatinine 0.58 L Est Cr Clr Drug Dosing 125.2 Est GFR ( Amer) 121.1 Est GFR (Non-Af Amer) 104.5 BUN/Creatinine Ratio 27.6 H Glucose 76 Calcium 8.8 PG Care Time/CCT Total # of Minutes Spent Total Time Spent with Patient: Total time spent is greater than 50% in coordination of care (as documented) at patient's floor/unit and/or counseling patient: Coding Level of Care Code 67023 SUB INP/OBS CARE 1/25MIN Diagnoses Catheter-associated urinary tract infection T83.511A; N39.0 Daytime somnolence R40.0 Sepsis A41.9 Sepsis acute organ dysfunction status: unspecified Sepsis type: sepsis due to unspecified organism Cellulitis of right leg L03.115 Acute metabolic encephalopathy G93.41 History of DVT (deep vein thrombosis) Z86.718 Hypothyroidism E03.9 DOG CATCHER (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) shunt status Z98.2 Seizure disorder G40.909 Congestive heart failure I50.9 Hypokalemia E87.6 Hypomagnesemia E83.42 Normocytic anemia D64.9 GERD without esophagitis K21.9 Chronic anticoagulation Z79.01 Depression F32.A History of benign brain tumor Z86.011 Morbid obesity with BMI of 45.0-49.9, adult E66.01; Z68.42 Abnormal brain MRI R90.89 UTI (urinary tract infection) due to Enterococcus N39.0; B95.2 Acute severe vertigo R42 Candidal intertrigo B37.2 (3) Sepsis Sepsis acute organ dysfunction status: unspecified Sepsis type: sepsis due to unspecified organism Qualified Code(s): A41.9 - Sepsis, unspecified organism
[2023-06-18] MEDS: MELATONIN 3 MG TAB PO PRN (21:42)
[2023-06-19] MEDS: FUROSEMIDE 20 MG TAB PO SCH (10:11)
--- NOTE | 2023-06-19 20:58 | Hospitalist Progress Note ---
Date of Service June 19, 2023 Assessment & Plan (1) Catheter-associated urinary tract infection: Plan: recent ESBL Klebsiella UTI s/p 7 day course of ertapenem patient with recurrent UTIs --> CT a/p in 04/2023 without renal stones or other urinary tract anomalies had VRE UTI earlier in this admission as well cont methenamine for UTI prophylaxis (2) Daytime somnolence: Plan: extensive w/u done while hospitalized - EEG, CT head, MRI brain x 2, labs, Rx of UTIs, etc despite such had continued with daytime sleepiness Dr Muro trialed her on modafanil 100mg daily in the event she has a form of narcolepsy or similar has tolerated such and having a favorable response will recommend referral to sleep medicine post-d/c for formal sleep study (typically a 2-day study for narcolepsy) (3) Sepsis: Plan: present on admission 2nd RLE cellulitis - resolved no sepsis since that time despite recurrent UTIs (4) Cellulitis of right leg: Plan: resolved has chronic lymphedema - would benefit from compression but declining to use tubigrip stockings stasis changes on legs unchanged and stable (5) Acute metabolic encephalopathy: Plan: resolved presented with confusion on day of admission presumed 2nd to sepsis/RLE cellulitis confusion then resolved since the early portion of the admission has intermittently had lethargy/sleepiness and pleasant confusion head CT x 2 this admission neg for acute findings of note - we received CT head reports from [facility]/MRI brain images via PACs spoke with radiology - they compared her outside/old CT head with the CTs this admission - largely unchanged MRI brain WITHOUT acute or chronic stroke most findings are chronic -- MRI here was compared to MRI brain done at [facility] 06/2022 (MRI images from 06/2022 are in PACS) 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 -- acute met encephalopathy from infection (suspected as main culprit); hospital delirium; subclinical seizures; TIA events; poor sleep at night; narcolepsy (see #1 above) vs other EEG did not show seizure focus ; [id number] continue vimpat BID repeat MRI brain 05/25/23 largely unchanged from her MRI brain done 05/10/23 Dr Herson Ashley performed neurology consultation Dr Ashley does not believe she has AUTOMOBILE SERVICE WRITER infection; LP not advised fluctuating mental status likely due to recent sepsis/UTI/metabolic factors in the setting of baseline, severe anatomical abnormalities of the brain (prior brain tumor resection on right, encephalomalacia, hygroma, etc) ?narcolepsy or some other form of sleep disorder again see above re: modafanil I suspect patient has cognitive impairment in the face of her prior brain tumor, resection, and significantly abnormal brain anatomy (6) History of DVT (deep vein thrombosis): Plan: Continue apixaban BID Has IVC filter in place (7) Hypothyroidism: Plan: Continue levothyroxine TSH 2.3 (8) ASSET AVAILABILITY LEADER (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) shunt status: Plan: placed in 03/2006 at [facility] [address] ASSET AVAILABILITY LEADER shunt is a Delta non-programmable unit - MR compatible ASSET AVAILABILITY LEADER shunt appears stable on CT head and MRIs (9) Seizure disorder: Plan: Continue lacosamide EEG done earlier in the stay negative for seizure focus (10) Congestive heart failure: Plan: Chronic diastolic heart failure Echo 02/27 with normal EF weight is up significantly since last time she was weighed could be weight gain from use of new SSRI (Prozac) doesn't examine in decompensated CHF but will resume lasix 20mg po daily bmp in 48 hours (11) Hypokalemia: Plan: Replaced Resolved (12) Hypomagnesemia: Plan: replaced resolved (13) Normocytic anemia: Plan: ferritin 58 transferrin low-normal suspect she has had Fe deficiency s/p venofer 300mg IV x 4 doses total this admission etiology of low Fe?? fecal occult neg x 2 (03/29, 05/31) could be dietary - prior to admission was eating very poorly, would skips meals, was not eating nutritious meals, etc B12 level - mid 300s; supplementing is already on folate supplementation 1mg daily last Hb 10.5 and continues to trend up over time (14) GERD without esophagitis: Plan: cont PPI reflux/aspiration precautions (15) Chronic anticoagulation: Plan: apixaban BID (16) Depression: Plan: cont prozac 20mg daily (17) History of benign brain tumor: Plan: left sided hemiplegia is presumably due to atrophy/encephalomalacia from her prior brain tumor resection (right sided thalamic astrocytoma per records) she also appears to have 2 meningiomas on her MRI brain -- 1. stable 1.7 cm left lateral calcified extra-axial lesion on image 16 series 8 which likely represents a meningioma. 2. probable meningioma of the falx cerebri anteriorly on image 15 measuring 8 mm. post-discharge she will need -- 1. neurology follow-up to follow seizure d/o, imaging, etc 2. 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 no tinnitus or hearing changes. if this was a TIA event she is already on Eliquis BID + aspirin 81mg daily. repeat head CT on 05/[address] CTA head/neck - ??left TEMPLATE CLERK stenosis otherwise both studies unremarkable. echo late fall 2022 was wnl. MRI brain was obtained after records from [facility] in [place] arrived. She had her shunt placed there in 2006. ASSET AVAILABILITY LEADER shunt is a non-programmable Delta device which is MRI compatible. NO acute or chronic CVA seen but numerous findings related to her prior brain tumor resection. No recurrent episodes since 05/08. (22) Candidal intertrigo: Plan: completed 14 days in total of diflucan for such earlier in the stay cont barrier creams/powders for itching - zyrtec 5mg HS itching controlled Plan had been a resident of [facility] but family asks that she not return to that facility. numerous referrals for SNF placement have been made over last 30+ days to no avail. awaiting referral to a location in [place]. PT/OT when willing to participate (often declines to participate, or if she does, she often makes little to no progress) did get oob to chair again today Admission and Anticipated Discharge Date Admission Date: May 03, 2023 Subjective no events +stool yesterday sitting in chair - got OOB to chair today with use of lift she had no complaints today eating decently Review of Systems Review of Systems: denies - headache, chest pain, dyspnea, cough, knee pain, abd pain, nausea or emesis Physical Exam Physical Exam: gen - obese, NAD, awake/alert, sitting in chair like yesterday; watching QVC channel mouth - MMM neck - no JVD heart - RRR, s1 s2, no murmur lungs - CTA b/l anterior; could not listen posteriorly due to positioning in her chair abd - soft NT BS+ ND ext - lymphedema b/l - unchanged; pulses 2+ b/l neuro - hemiplegia LUE/LLE with contracture of LUE skin - stasis changes b/l shins unchanged ; no cellulitis Results & Data Results & Data Vital Signs (Past 12 Hours) Vital Signs Temp Pulse Resp BP Pulse Ox O2 Del Method 06/19/23 20:57 36.7 C 79 20 120/73 93 Room Air 06/19/23 14:44 37.0 C 84 18 123/72 93 Room Air 06/19/23 10:00 Room Air PG Care Time/CCT Total # of Minutes Spent Total Time Spent with Patient: Total time spent is greater than 50% in coordination of care (as documented) at patient's floor/unit and/or counseling patient: Coding Level of Care Code 02813 SUB INP/OBS CARE 1/25MIN Diagnoses Catheter-associated urinary tract infection T83.511A; N39.0 Daytime somnolence R40.0 Sepsis A41.9 Sepsis acute organ dysfunction status: unspecified Sepsis type: sepsis due to unspecified organism Cellulitis of right leg L03.115 Acute metabolic encephalopathy G93.41 History of DVT (deep vein thrombosis) Z86.718 Hypothyroidism E03.9 ASSET AVAILABILITY LEADER (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) shunt status Z98.2 Seizure disorder G40.909 Congestive heart failure I50.9 Hypokalemia E87.6 Hypomagnesemia E83.42 Normocytic anemia D64.9 GERD without esophagitis K21.9 Chronic anticoagulation Z79.01 Depression F32.A History of benign brain tumor Z86.011 Morbid obesity with BMI of 45.0-49.9, adult E66.01; Z68.42 Abnormal brain MRI R90.89 UTI (urinary tract infection) due to Enterococcus N39.0; B95.2 Acute severe vertigo R42 Candidal intertrigo B37.2 (3) Sepsis Sepsis acute organ dysfunction status: unspecified Sepsis type: sepsis due to unspecified organism Qualified Code(s): A41.9 - Sepsis, unspecified organism
--- NOTE | 2023-06-20 20:10 | Hospitalist Progress Note ---
Date of Service June 20, 2023 Assessment & Plan (1) Unable to care for self: Plan: patient entered [facility] in fall 2022 admitted from [facility] 05/03/23 with sepsis due to cellulitis of leg family requested that patient NOT return to [facility] alternative SNF desired by family numerous referrals made over the last month to no avail however, was just informed today that [facility] in [place] has a bed and accepted Ms Dorado they should be ready to take her on Friday or Friday of next week informed pt of this social work has been in touch with pt's Sister Selin (2) Catheter-associated urinary tract infection: Plan: recent ESBL Klebsiella UTI s/p 7 day course of ertapenem patient with recurrent UTIs --> CT a/p in 04/2023 without renal stones or other urinary tract anomalies had VRE UTI earlier in this admission as well cont methenamine for UTI prophylaxis (3) Daytime somnolence: Plan: extensive w/u done while hospitalized - EEG, CT head, MRI brain x 2, labs, Rx of UTIs, etc despite such had continued with daytime sleepiness Dr Muro trialed her on modafanil 100mg daily in the event she has a form of narcolepsy or similar has tolerated such and having a favorable response will recommend referral to sleep medicine post-d/c for formal sleep study (typically a 2-day study for narcolepsy) (4) Sepsis: Plan: present on admission 2nd RLE cellulitis - resolved no sepsis since that time despite recurrent UTIs (5) Cellulitis of right leg: Plan: resolved has chronic lymphedema - would benefit from compression but declining to use tubigrip stockings stasis changes on legs unchanged and stable (6) Acute metabolic encephalopathy: Plan: resolved presented with confusion on day of admission presumed 2nd to sepsis/RLE cellulitis confusion then resolved since the early portion of the admission has intermittently had lethargy/sleepiness and pleasant confusion head CT x 2 this admission neg for acute findings of note - we received CT head reports from [facility] as well as CT/MRI brain images via PACs spoke with radiology - they compared her outside/old CT head with the CTs this admission - largely unchanged MRI brain WITHOUT acute or chronic stroke most findings are chronic -- MRI here was compared to MRI brain done at [facility] 06/2022 (MRI images from 06/2022 are in PACS) 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 -- acute met encephalopathy from infection (suspected as main culprit); hospital delirium; subclinical seizures; TIA events; poor sleep at night; narcolepsy (see #1 above) vs other EEG did not show seizure focus ; [id number] continue vimpat BID repeat MRI brain 05/25/23 largely unchanged from her MRI brain done 05/10/23 Dr Herson Ashley performed neurology consultation Dr Ashley does not believe she has RECORDS MANAGEMENT SPECIALIST infection; LP not advised fluctuating mental status likely due to recent sepsis/UTI/metabolic factors in the setting of baseline, severe anatomical abnormalities of the brain (prior brain tumor resection on right, encephalomalacia, hygroma, etc) ?narcolepsy or some other form of sleep disorder again see above re: modafanil I suspect patient has cognitive impairment in the face of her prior brain tumor, resection, and significantly abnormal brain anatomy (7) History of DVT (deep vein thrombosis): Plan: Continue apixaban BID Has IVC filter in place (8) Hypothyroidism: Plan: Continue levothyroxine TSH 2.3 (9) BENCH CARPENTER (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) shunt status: Plan: placed in 03/2006 at [facility] BENCH CARPENTER shunt is a Delta non-programmable unit - MR compatible BENCH CARPENTER shunt appears stable on CT head and MRIs (10) Seizure disorder: Plan: Continue lacosamide EEG done earlier in the stay negative for seizure focus (11) Congestive heart failure: Plan: Chronic diastolic heart failure Echo 02/27 with normal EF weight is up significantly since last time she was weighed could be weight gain from use of new SSRI (Prozac) doesn't examine in decompensated CHF but resumed lasix 20mg po daily bmp in am tomorrow (12) Hypokalemia: Plan: Replaced Resolved (13) Hypomagnesemia: Plan: replaced resolved (14) Normocytic anemia: Plan: ferritin 58 transferrin low-normal suspect she has had Fe deficiency s/p venofer 300mg IV x 4 doses total this admission etiology of low Fe?? fecal occult neg x 2 (03/29, 05/31) could be dietary - prior to admission was eating very poorly, would skips meals, was not eating nutritious meals, etc B12 level - mid 300s; supplementing is already on folate supplementation 1mg daily last Hb 10.5 and continues to trend up over time (15) GERD without esophagitis: Plan: cont PPI reflux/aspiration precautions (16) Chronic anticoagulation: Plan: apixaban BID (17) Depression: Plan: cont prozac 20mg daily (18) History of benign brain tumor: Plan: left sided hemiplegia is presumably due to atrophy/encephalomalacia from her prior brain tumor resection (right sided thalamic astrocytoma per records) she also appears to have 2 meningiomas on her MRI brain -- 1. stable 1.7 cm left lateral calcified extra-axial lesion on image 16 series 8 which likely represents a meningioma. 2. probable meningioma of the falx cerebri anteriorly on image 15 measuring 8 mm. post-discharge she will need -- 1. neurology follow-up to follow seizure d/o, imaging, etc 2. 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 no tinnitus or hearing changes. if this was a TIA event she is already on Eliquis BID + aspirin 81mg daily. repeat head CT on 05/[address] CTA head/neck - ??left FOLDER SEAMER stenosis otherwise both studies unremarkable. echo late fall 2022 was wnl. MRI brain was obtained after records from [facility] in [place] arrived. She had her shunt placed there in 2006. BENCH CARPENTER shunt is a non-programmable Delta device which is MRI compatible. NO acute or chronic CVA seen but numerous findings related to her prior brain tumor resection. No recurrent episodes since 05/08. (23) Candidal intertrigo: Plan: completed 14 days in total of diflucan for such earlier in the stay cont barrier creams/powders for itching - zyrtec 5mg HS itching controlled Plan PT/OT when willing to participate (often declines to participate, or if she does, she often makes little to no progress) did get oob to chair multiple times this week, however Admission and Anticipated Discharge Date Admission Date: May 03, 2023 Subjective ate 100% of all meals today heard from case management that she has been accepted at [facility] in [place] - a SNF informed her of this new information pt denies all complaints last BM - 06/17 no issues per staff Review of Systems Review of Systems: CV - no chest pain pulm - no dyspnea or cough GI - no abd pain or N/V Physical Exam Physical Exam: gen - obese, NAD, awake/alert, lying in bed mouth - MMM neck - no JVD heart - RRR, s1 s2, no murmur lungs - CTA b/l abd - soft NT BS+ ND ext - lymphedema b/l - unchanged; pulses 2+ b/l neuro - hemiplegia LUE/LLE with contracture of LUE skin - stasis changes b/l shins; no rash on left arm or right arm Results & Data Results & Data Vital Signs (Past 12 Hours) Vital Signs Temp Pulse Resp BP Pulse Ox O2 Del Method 06/20/23 19:36 36.6 C 88 18 154/84 H 93 Room Air 06/20/23 15:28 36.9 C 89 18 133/78 93 Room Air 06/20/23 13:45 36.8 C 86 16 124/73 91 Room Air PG Care Time/CCT Total # of Minutes Spent Total Time Spent with Patient: Total time spent is greater than 50% in coordination of care (as documented) at patient's floor/unit and/or counseling patient: Coding Level of Care Code 06338 SUB INP/OBS CARE 05/01MIN Diagnoses Unable to care for self Z78.9 Catheter-associated urinary tract infection T83.511A; N39.0 Daytime somnolence R40.0 Sepsis A41.9 Sepsis acute organ dysfunction status: unspecified Sepsis type: sepsis due to unspecified organism Cellulitis of right leg L03.115 Acute metabolic encephalopathy G93.41 History of DVT (deep vein thrombosis) Z86.718 Hypothyroidism E03.9 BENCH CARPENTER (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) shunt status Z98.2 Seizure disorder G40.909 Congestive heart failure I50.9 Hypokalemia E87.6 Hypomagnesemia E83.42 Normocytic anemia D64.9 GERD without esophagitis K21.9 Chronic anticoagulation Z79.01 Depression F32.A History of benign brain tumor Z86.011 Morbid obesity with BMI of 45.0-49.9, adult E66.01; Z68.42 Abnormal brain MRI R90.89 UTI (urinary tract infection) due to Enterococcus N39.0; B95.2 Acute severe vertigo R42 Candidal intertrigo B37.2 (4) Sepsis Sepsis acute organ dysfunction status: unspecified Sepsis type: sepsis due to unspecified organism Qualified Code(s): A41.9 - Sepsis, unspecified organism
[2023-06-21 07:58] LABS: Calcium 8.7 mg/dl (8.6-10.3); Creatinine Clr Calc Pharmacy 128.1 ml/min; Est GFR (African American) 121.1 ml/min; Est GFR (Non-African American) 104.5 ml/min; Magnesium 1.8 mg/dl (1.7-2.4); Potassium 4.1 mmol/L (3.5-5.1)
--- NOTE | 2023-06-21 19:26 | Hospitalist Progress Note ---
Date of Service June 21, 2023 Assessment & Plan (1) Unable to care for self: Plan: patient entered [facility] in fall 2022 admitted from [facility] 05/03/23 with sepsis due to cellulitis of leg family requested that patient NOT return to [facility] alternative SNF desired by family numerous referrals made over the last month to no avail we heard late this past week that [facility] in [place] has a bed and accepted Ms Dorado they should be ready to take her on Friday or Friday of this coming week pt aware her sister Selin is also aware (2) Catheter-associated urinary tract infection: Plan: recent ESBL Klebsiella UTI s/p 7 day course of ertapenem patient with recurrent UTIs --> CT a/p in 04/2023 without renal stones or other urinary tract anomalies had VRE UTI earlier in this admission as well cont methenamine for UTI prophylaxis (3) Daytime somnolence: Plan: extensive w/u done while hospitalized - EEG, CT head, MRI brain x 2, labs, Rx of UTIs, etc despite such had continued with daytime sleepiness Dr Muro trialed her on modafanil 100mg daily in the event she has a form of narcolepsy or similar has tolerated such and having a favorable response will recommend referral to neurology/sleep medicine post-d/c for formal sleep study (typically a 2-day study for narcolepsy) (4) Sepsis: Plan: present on admission 2nd RLE cellulitis - resolved no sepsis since that time despite recurrent UTIs (5) Cellulitis of right leg: Plan: present at time of admission, treated and resolved no recurrent cellulitis since then has chronic lymphedema - would benefit from compression but declining to use tubigrip stockings stasis changes on legs unchanged and stable (6) Acute metabolic encephalopathy: Plan: resolved presented with confusion on day of admission presumed 2nd to sepsis/RLE cellulitis confusion then resolved since the early portion of the admission has intermittently had lethargy/sleepiness and pleasant confusion head CT x 2 this admission neg for acute findings of note - we received CT head reports from [facility] as well as CT/MRI brain images via PACs spoke with radiology - they compared her outside/old CT head with the CTs this admission - largely unchanged MRI brain WITHOUT acute or chronic stroke most findings are chronic -- MRI here was compared to MRI brain done at [facility] 06/2022 (MRI images from 06/2022 are in PACS) 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 -- acute met encephalopathy from infection (suspected as main culprit); hospital delirium; subclinical seizures; TIA events; poor sleep at night; narcolepsy (see #1 above) vs other EEG did not show seizure focus ; [id number] continue vimpat BID repeat MRI brain 05/25/23 largely unchanged from her MRI brain done 05/10/23 Dr Herson Ashley performed neurology consultation Dr Ashley does not believe she has [employer]AT[employer]IVER infection; LP not advised fluctuating mental status likely due to recent sepsis/UTI/metabolic factors in the setting of baseline, severe anatomical abnormalities of the brain (prior brain tumor resection on right, encephalomalacia, hygroma, etc) ?narcolepsy or some other form of sleep disorder again see above re: modafanil I suspect patient has cognitive impairment in the face of her prior brain tumor, resection, and significantly abnormal brain anatomy (7) History of DVT (deep vein thrombosis): Plan: Continue apixaban BID Has IVC filter in place (8) Hypothyroidism: Plan: Continue levothyroxine TSH 2.3 (9) MIDDLEWARE SYSTEMS ARCHITECT (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) shunt status: Plan: placed in 03/2006 at [facility] MIDDLEWARE SYSTEMS ARCHITECT shunt is a Delta non-programmable unit - MR compatible MIDDLEWARE SYSTEMS ARCHITECT shunt appears stable on CT head and MRIs (10) Seizure disorder: Plan: Continue lacosamide EEG done earlier in the stay negative for seizure focus (11) Congestive heart failure: Plan: Chronic diastolic heart failure Echo 02/27 with normal EF weight is up significantly since last time she was weighed could be weight gain from use of new SSRI (Prozac) doesn't examine in decompensated CHF but resumed lasix 20mg po daily bmp again today wnl (12) Hypokalemia: Plan: Replaced Resolved (13) Hypomagnesemia: Plan: replaced resolved (14) Normocytic anemia: Plan: ferritin 58 transferrin low-normal suspect she has had Fe deficiency s/p venofer 300mg IV x 4 doses total this admission etiology of low Fe?? fecal occult neg x 2 (03/29, 05/31) could be dietary - prior to admission was eating very poorly, would skips meals, was not eating nutritious meals, etc B12 level - mid 300s; supplementing is already on folate supplementation 1mg daily last Hb 10.5 and continues to trend up over time (15) GERD without esophagitis: Plan: cont PPI reflux/aspiration precautions (16) Chronic anticoagulation: Plan: apixaban BID (17) Depression: Plan: cont prozac 20mg daily (18) History of benign brain tumor: Plan: left sided hemiplegia is presumably due to atrophy/encephalomalacia from her prior brain tumor resection (right sided thalamic astrocytoma per records) she also appears to have 2 meningiomas on her MRI brain -- 1. stable 1.7 cm left lateral calcified extra-axial lesion on image 16 series 8 which likely represents a meningioma. 2. probable meningioma of the falx cerebri anteriorly on image 15 measuring 8 mm. post-discharge she will need -- 1. neurology follow-up to follow seizure d/o, imaging, etc 2. 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 no tinnitus or hearing changes. if this was a TIA event she is already on Eliquis BID + aspirin 81mg daily. repeat head CT on 05/[address] CTA head/neck - ??left LAWN CARE SPECIALIST stenosis otherwise both studies unremarkable. echo late fall 2022 was wnl. MRI brain was obtained after records from [facility] in [place] arrived. She had her shunt placed there in 2006. MIDDLEWARE SYSTEMS ARCHITECT shunt is a non-programmable Delta device which is MRI compatible. NO acute or chronic CVA seen but numerous findings related to her prior brain tumor resection. No recurrent episodes since 2/1. (23) Candidal intertrigo: Plan: completed 14 days in total of diflucan for such earlier in the stay cont barrier creams/powders for itching - zyrtec 5mg HS itching controlled Plan PT/OT when willing to participate (often declines to participate, or if she does, she often makes little to no progress) did get oob to chair multiple times this week with assistance from staff occasional "wheeze" sound on exam - appears to come from upper airway as opposed to lower respiratory tract; uncertain of etiology no change with use of Breo over the last few weeks could consider CT neck and CT chest updated pt's sister Selin by phone this evening, 06/21/23 Admission and Anticipated Discharge Date Admission Date: May 03, 2023 Subjective +stool today no new issues no new complaints did not eat breakfast, but ate lunch and dinner per staff (100% of each) during my visit denied any itching, pain in any location, dyspnea anxious to d/c out of hospital Review of Systems Review of Systems: CV - no chest pain pulm - no cough GI - no N/V or abd pain Physical Exam Physical Exam: gen - obese, NAD, awake/alert, lying in bed watching TV mouth - MMM neck - no JVD heart - RRR, s1 s2, no murmur; as always heart tones are distant due to body habitus lungs - CTA b/l with decreased BS bases abd - soft NT BS+ ND ext - lymphedema b/l - unchanged; pulses 2+ b/l neuro - hemiplegia LUE/LLE with contracture of LUE skin - stasis changes b/l shins; no rash on left arm or right arm; no cellulitis any location Results & Data Results & Data Vital Signs (Past 12 Hours) Vital Signs Temp Pulse Resp BP Pulse Ox O2 Del Method 06/21/23 16:53 36.9 C 75 18 134/76 94 Room Air 06/21/23 13:39 Room Air 06/21/23 10:20 36.9 C 83 22 120/72 94 Room Air Laboratory Results Laboratory Results - last 24 hr 06/21/23 07:15 Sodium 139 Potassium 4.1 Chloride 104 Carbon Dioxide 29 Anion Gap 6 BUN 18 Creatinine 0.58 L Est Cr Clr Drug Dosing 128.1 Est GFR ( Amer) 121.1 Est GFR (Non-Af Amer) 104.5 BUN/Creatinine Ratio 31.0 H Glucose 90 Calcium 8.7 Magnesium 1.8 PG Care Time/CCT Total # of Minutes Spent Total Time Spent with Patient: Total time spent is greater than 50% in coordination of care (as documented) at patient's floor/unit and/or counseling patient: Coding Level of Care Code 12052 SUB INP/OBS CARE 25MIN Diagnoses Unable to care for self Z78.9 Catheter-associated urinary tract infection T83.511A; N39.0 Daytime somnolence R40.0 Sepsis A41.9 Sepsis acute organ dysfunction status: unspecified Sepsis type: sepsis due to unspecified organism Cellulitis of right leg L03.115 Acute metabolic encephalopathy G93.41 History of DVT (deep vein thrombosis) Z86.718 Hypothyroidism E03.9 MIDDLEWARE SYSTEMS ARCHITECT (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) shunt status Z98.2 Seizure disorder G40.909 Congestive heart failure I50.9 Hypokalemia E87.6 Hypomagnesemia E83.42 Normocytic anemia D64.9 GERD without esophagitis K21.9 Chronic anticoagulation Z79.01 Depression F32.A History of benign brain tumor Z86.011 Morbid obesity with BMI of 45.0-49.9, adult E66.01; Z68.42 Abnormal brain MRI R90.89 UTI (urinary tract infection) due to Enterococcus N39.0; B95.2 Acute severe vertigo R42 Candidal intertrigo B37.2 (4) Sepsis Sepsis acute organ dysfunction status: unspecified Sepsis type: sepsis due to unspecified organism Qualified Code(s): A41.9 - Sepsis, unspecified organism
[2023-06-22] MEDS: KETOCONAZOLE 2% CR 15 GM TUBE EXT SCH (20:31)
--- NOTE | 2023-06-23 06:05 | Hospitalist Progress Note ---
Date of Service June 22, 2023 Assessment & Plan (1) Unable to care for self: Plan: patient entered [facility] in fall 2022 admitted from [facility] 05/03/23 with sepsis due to cellulitis of leg family requested that patient NOT return to [facility] alternative SNF desired by family numerous referrals made over the last month to no avail we heard late this past week that [facility] in [place] has a bed and accepted Ms Dorado they should be ready to take her on Friday or Friday of this coming week pt aware her sister Selin is also aware (2) Catheter-associated urinary tract infection: Plan: recent ESBL Klebsiella UTI s/p 7 day course of ertapenem patient with recurrent UTIs --> CT a/p in 04/2023 without renal stones or other urinary tract anomalies had VRE UTI earlier in this admission as well cont methenamine for UTI prophylaxis (3) Daytime somnolence: Plan: extensive w/u done while hospitalized - EEG, CT head, MRI brain x 2, labs, Rx of UTIs, etc despite such had continued with daytime sleepiness Dr Muro trialed her on modafanil 100mg daily in the event she has a form of narcolepsy or similar has tolerated such and having a favorable response will recommend referral to neurology/sleep medicine post-d/c for formal sleep study (typically a 2-day study for narcolepsy) (4) Sepsis: Plan: present on admission 2nd RLE cellulitis - resolved no sepsis since that time despite recurrent UTIs (5) Cellulitis of right leg: Plan: present at time of admission, treated and resolved no recurrent cellulitis since then has chronic lymphedema - would benefit from compression but declining to use tubigrip stockings stasis changes on legs unchanged and stable (6) Acute metabolic encephalopathy: Plan: resolved presented with confusion on day of admission presumed 2nd to sepsis/RLE cellulitis confusion then resolved since the early portion of the admission has intermittently had lethargy/sleepiness and pleasant confusion head CT x 2 this admission neg for acute findings of note - we received CT head reports from [facility] as well as CT/MRI brain images via PACs spoke with radiology - they compared her outside/old CT head with the CTs this admission - largely unchanged MRI brain WITHOUT acute or chronic stroke most findings are chronic -- MRI here was compared to MRI brain done at [facility] 06/2022 (MRI images from 06/2022 are in PACS) 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 -- acute met encephalopathy from infection (suspected as main culprit); hospital delirium; subclinical seizures; TIA events; poor sleep at night; narcolepsy (see #1 above) vs other EEG did not show seizure focus ; [id number] continue vimpat BID repeat MRI brain 05/25/23 largely unchanged from her MRI brain done 05/10/23 Dr Herson Ashley performed neurology consultation Dr Ashley does not believe she has HOME HE[employer] LVN infection; LP not advised fluctuating mental status likely due to recent sepsis/UTI/metabolic factors in the setting of baseline, severe anatomical abnormalities of the brain (prior brain tumor resection on right, encephalomalacia, hygroma, etc) ?narcolepsy or some other form of sleep disorder again see above re: modafanil I suspect patient has cognitive impairment in the face of her prior brain tumor, resection, and significantly abnormal brain anatomy (7) History of DVT (deep vein thrombosis): Plan: Continue apixaban BID Has IVC filter in place (8) Hypothyroidism: Plan: Continue levothyroxine TSH 2.3 (9) RESPIRATORY DIRECTOR (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) shunt status: Plan: placed in 03/[address] [facility] RESPIRATORY DIRECTOR shunt is a Delta non-programmable unit - MR compatible RESPIRATORY DIRECTOR shunt appears stable on CT head and MRIs (10) Seizure disorder: Plan: Continue lacosamide EEG done earlier in the stay negative for seizure focus (11) Congestive heart failure: Plan: Chronic diastolic heart failure Echo 02/27 with normal EF weight is up significantly since last time she was weighed could be weight gain from use of new SSRI (Prozac) doesn't examine in decompensated CHF but resumed lasix 20mg po daily recheck bmp am (12) Hypokalemia: Plan: Replaced Resolved (13) Hypomagnesemia: Plan: replaced resolved (14) Normocytic anemia: Plan: ferritin 58 transferrin low-normal suspect she has had Fe deficiency s/p venofer 300mg IV x 4 doses total this admission etiology of low Fe?? fecal occult neg x 2 (03/29, 05/31) could be dietary - prior to admission was eating very poorly, would skips meals, was not eating nutritious meals, etc B12 level - mid 300s; supplementing is already on folate supplementation 1mg daily last Hb 10.5 and continues to trend up over time (15) GERD without esophagitis: Plan: cont PPI reflux/aspiration precautions (16) Chronic anticoagulation: Plan: apixaban BID (17) Depression: Plan: cont prozac 20mg daily (18) History of benign brain tumor: Plan: left sided hemiplegia is presumably due to atrophy/encephalomalacia from her prior brain tumor resection (right sided thalamic astrocytoma per records) she also appears to have 2 meningiomas on her MRI brain -- 1. stable 1.7 cm left lateral calcified extra-axial lesion on image 16 series 8 which likely represents a meningioma. 2. probable meningioma of the falx cerebri anteriorly on image 15 measuring 8 mm. post-discharge she will need -- 1. neurology follow-up to follow seizure d/o, imaging, etc 2. 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 no tinnitus or hearing changes. if this was a TIA event she is already on Eliquis BID + aspirin 81mg daily. repeat head CT on 05/[address] CTA head/neck - ??left FNP stenosis otherwise both studies unremarkable. echo late fall 2022 was wnl. MRI brain was obtained after records from [facility] in [place] arrived. She had her shunt placed there in 2006. RESPIRATORY DIRECTOR shunt is a non-programmable Delta device which is MRI compatible. NO acute or chronic CVA seen but numerous findings related to her prior brain tumor resection. No recurrent episodes since 05/08. (23) Candidal intertrigo: Plan: completed 14 days in total of diflucan for such earlier in the stay cont barrier creams/powders for itching - cont zyrtec 5mg HS Plan PT/OT when willing to participate (often declines to participate, or if she does, she often makes little to no progress) did get oob to chair multiple times this week and weekend with assistance from staff occasional "wheeze" sound on exam - appears to come from upper airway as opposed to lower respiratory tract; uncertain of etiology no change with use of Breo over the last few weeks - will stop EDAC (episodic dynamic airway collapse) ?? If she has such -- Rx is weight loss, CPAP/BIPAP, etc. updated pt's sister Selin by phone 06/21/23 Admission and Anticipated Discharge Date Admission Date: May 03, 2023 Subjective no events was sleeping in bed during the visit easily awoke she spent time in the chair today eating well "I had a good day" denies all complaints Review of Systems Review of Systems: skin - no pruritis cv - no chest pain pulm - denies cough or dyspnea GI - no abd pain or N/V Physical Exam Physical Exam: gen - obese, NAD - looks same as on previous visits mouth - MMM neck - no JVD heart - RRR, s1 s2, no murmur lungs - CTA b/l with decreased BS bases abd - soft NT BS+ ND ext - lymphedema b/l - unchanged; pulses 2+ b/l neuro - hemiplegia LUE/LLE with contracture of LUE skin - stasis changes b/l shins; there is some tiny blisters present on L ant ball; no rash on left arm or right arm; no cellulitis any location; xerosis (vs tinea pedis) b/l soles of feet Results & Data Results & Data Vital Signs (Past 12 Hours) Vital Signs Temp Pulse Resp BP Pulse Ox O2 Del Method 06/22/23 16:00 36.7 C 77 18 130/72 94 Room Air 06/22/23 08:48 36.8 C 81 18 129/73 94 Room Air PG Care Time/CCT Total # of Minutes Spent Total Time Spent with Patient: Total time spent is greater than 50% in coordination of care (as documented) at patient's floor/unit and/or counseling patient: Coding Level of Care Code 57544 SUB INP/OBS CARE 05/01MIN Diagnoses Unable to care for self Z78.9 Catheter-associated urinary tract infection T83.511A; N39.0 Daytime somnolence R40.0 Sepsis A41.9 Sepsis acute organ dysfunction status: unspecified Sepsis type: sepsis due to unspecified organism Cellulitis of right leg L03.115 Acute metabolic encephalopathy G93.41 History of DVT (deep vein thrombosis) Z86.718 Hypothyroidism E03.9 RESPIRATORY DIRECTOR (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) shunt status Z98.2 Seizure disorder G40.909 Congestive heart failure I50.9 Hypokalemia E87.6 Hypomagnesemia E83.42 Normocytic anemia D64.9 GERD without esophagitis K21.9 Chronic anticoagulation Z79.01 Depression F32.A History of benign brain tumor Z86.011 Morbid obesity with BMI of 45.0-49.9, adult E66.01; Z68.42 Abnormal brain MRI R90.89 UTI (urinary tract infection) due to Enterococcus N39.0; B95.2 Acute severe vertigo R42 Candidal intertrigo B37.2 (4) Sepsis Sepsis acute organ dysfunction status: unspecified Sepsis type: sepsis due to unspecified organism Qualified Code(s): A41.9 - Sepsis, unspecified organism
[2023-06-23 07:18] LABS: BUN Creatinine Ratio 38.3 (10-20); Calcium 8.7 mg/dl (8.6-10.3); Creatinine Clr Calc Pharmacy 156.3 ml/min; Est GFR (African American) 129.8 ml/min; Potassium 3.8 mmol/L (3.5-5.1)
--- NOTE | 2023-06-23 20:13 | Hospitalist Progress Note ---
Date of Service June 23, 2023 Assessment & Plan (1) Unable to care for self: Plan: patient entered [facility] in fall 2022 admitted from [facility] 05/03/23 with sepsis due to cellulitis of leg family requested that patient NOT return to [facility] alternative SNF desired by family numerous referrals made over the last month to no avail admission to [facility] in [place] tomorrow, 06/23 transport coming at 11am tomorrow morning I spoke with pt's sister Selin this evening - aware of discharge tomorrow (2) Catheter-associated urinary tract infection: Plan: recent ESBL Klebsiella UTI s/p 7 day course of ertapenem patient with recurrent UTIs --> CT a/p in 04/2023 without renal stones or other urinary tract anomalies had VRE UTI earlier in this admission as well cont methenamine BID for UTI prophylaxis (3) Daytime somnolence: Plan: extensive w/u done while hospitalized - EEG, CT head, MRI brain x 2, labs, Rx of UTIs, etc despite such had continued with daytime sleepiness Dr Muro trialed her on modafanil 100mg daily in the event she has a form of narcolepsy or similar has tolerated such and having a favorable response will recommend referral to neurology/sleep medicine post-d/c for formal sleep study (typically a 2-day study for narcolepsy) (4) Sepsis: Plan: present on admission 2nd RLE cellulitis - resolved no sepsis since that time despite recurrent UTIs (5) Cellulitis of right leg: Plan: present at time of admission, treated and resolved no recurrent cellulitis since then has chronic lymphedema - would benefit from compression tolerating single layer tubigrip stockings she has minor blistering on left ball from her lymphedema - cont compression and daily inspection of skin lasix prn but diuretics typically not terribly helpful with edema from lymphedema (6) Acute metabolic encephalopathy: Plan: resolved presented with confusion on day of admission presumed 2nd to sepsis/RLE cellulitis confusion then resolved since the early portion of the admission has intermittently had lethargy/sleepiness and pleasant confusion head CT x 2 this admission neg for acute findings of note - we received CT head reports from [facility] as well as CT/MRI brain images via PACs spoke with radiology - they compared her outside/old CT head with the CTs this admission - largely unchanged MRI brain WITHOUT acute or chronic stroke most findings are chronic -- MRI here was compared to MRI brain done at [facility] 06/2022 (MRI images from 06/2022 are in PACS) 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 -- acute met encephalopathy from infection (suspected as main culprit); hospital delirium; subclinical seizures; TIA events; poor sleep at night; narcolepsy (see #1 above) vs other EEG did not show seizure focus ; [id number] continue vimpat BID repeat MRI brain 05/25/23 largely unchanged from her MRI brain done 05/10/23 Dr Herson Ashley performed neurology consultation Dr Ashley does not believe she has RIPSAW MATCHER infection; LP not advised fluctuating mental status likely due to recent sepsis/UTI/metabolic factors in the setting of baseline, severe anatomical abnormalities of the brain (prior brain tumor resection on right, encephalomalacia, hygroma, etc) ?narcolepsy or some other form of sleep disorder again see above re: modafanil I suspect patient has cognitive impairment in the face of her prior brain tumor, resection, and significantly abnormal brain anatomy (7) History of DVT (deep vein thrombosis): Plan: Continue apixaban BID Has IVC filter in place (8) Hypothyroidism: Plan: Continue levothyroxine TSH 2.3 (9) MANAGER ENTRY (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) shunt status: Plan: placed in 03/2006 at [facility] MANAGER ENTRY shunt is a Delta non-programmable unit - MR compatible MANAGER ENTRY shunt appears stable on CT head and MRIs (10) Seizure disorder: Plan: Continue lacosamide EEG done earlier in the stay negative for seizure focus (11) Congestive heart failure: Plan: Chronic diastolic heart failure Echo 02/27 with normal EF weight is up significantly since last time she was weighed could be weight gain from use of new SSRI (Prozac) doesn't examine in decompensated CHF but resumed lasix 20mg po daily prn BMP wnl today (12) Hypokalemia: Plan: Replaced Resolved (13) Hypomagnesemia: Plan: replaced resolved (14) Normocytic anemia: Plan: ferritin 58 transferrin low-normal suspect she has had Fe deficiency s/p venofer 300mg IV x 4 doses total this admission etiology of low Fe?? fecal occult neg x 2 (03/29, 05/31) could be dietary - prior to admission was eating very poorly, would skips meals, was not eating nutritious meals, etc B12 level - mid 300s; supplementing is already on folate supplementation 1mg daily last Hb 10.5 and continues to trend up over time (15) GERD without esophagitis: Plan: cont PPI reflux/aspiration precautions (16) Chronic anticoagulation: Plan: apixaban BID (17) Depression: Plan: cont prozac 20mg daily (18) History of benign brain tumor: Plan: left sided hemiplegia is presumably due to atrophy/encephalomalacia from her prior brain tumor resection (right sided thalamic astrocytoma per records) she also appears to have 2 meningiomas on her MRI brain -- 1. stable 1.7 cm left lateral calcified extra-axial lesion on image 16 series 8 which likely represents a meningioma. 2. probable meningioma of the falx cerebri anteriorly on image 15 measuring 8 mm. post-discharge she will need -- 1. neurology follow-up to follow seizure d/o, imaging, etc 2. 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 no tinnitus or hearing changes. if this was a TIA event she is already on Eliquis BID + aspirin 81mg daily. repeat head CT on 05/[address] CTA head/neck - ??left [facility] stenosis otherwise both studies unremarkable. echo late fall 2022 was wnl. MRI brain was obtained after records from [facility] in [place] arrived. She had her shunt placed there in 2006. MANAGER ENTRY shunt is a non-programmable Delta device which is MRI compatible. NO acute or chronic CVA seen but numerous findings related to her prior brain tumor resection. No recurrent episodes since 05/08. (23) Candidal intertrigo: Plan: completed 14 days in total of diflucan for such earlier in the stay cont barrier creams/powders for itching - cont zyrtec 5mg HS (24) Expiratory wheezing: Plan: intermittent expiratory "wheeze" sound on exam - appears to come from upper airway as opposed to lower respiratory tract no change with use of Breo over the last few weeks - will stop no prior h/o asthma video swallow - no aspiration no evidence of pulmonary edema thus "cardiac wheezing" unlikely I am suspicious for tracheomalacia / EDAC (excessive dynamic airway collapse) this condition mimics asthma - expiratory wheezing is prominent due to the airway collapse her symptoms are always expiratory with taking deep breaths and when trying to move If she has such -- Rx is weight loss, CPAP/BIPAP, etc. refer to pulmonology in [place] for their opinion Plan updated pt's sister Selin by phone 06/21/23 and again this evening d/c to [facility] in [place] 06/23 discharge time - 11am completed most of her d/c med rec, instructions, etc total care time today about 60min Admission and Anticipated Discharge Date Admission Date: May 03, 2023 Subjective no events overnight feeling well zero complaints ate well today she is aware of transfer to [facility] - at 11am tomorrow Review of Systems Review of Systems: skin - denies itching today neuro - no headache CV - no chest pain pulm - no cough or dyspnea GI - had BM today; no abd pain or N/V Physical Exam Physical Exam: gen - obese, NAD - looks well today; smiling mouth - MMM neck - no JVD heart - RRR, s1 s2, no murmur lungs - CTA b/l with mildly decreased BS bases abd - soft NT BS+ ND ext - lymphedema b/l - unchanged; pulses 2+ b/l; tubigrip stockings in place b/l shins neuro - hemiplegia LUE/LLE with contracture of LUE skin - stasis changes b/l shins; there is some tiny blisters present on L ant ball; no rash on left arm or right arm; no cellulitis any location; xerosis (vs tinea pedis) b/l soles of feet Results & Data Results & Data Vital Signs (Past 12 Hours) Vital Signs Temp Pulse Resp BP Pulse Ox O2 Del Method 06/23/23 15:14 36.5 C 76 20 122/71 94 Room Air Laboratory Results Laboratory Results - last 24 hr 06/23/23 06:26 Sodium 143 Potassium 3.8 Chloride 107 Carbon Dioxide 30 Anion Gap 6 BUN 18 Creatinine 0.47 L Est Cr Clr Drug Dosing 156.3 Est GFR ( Amer) 129.8 Est GFR (Non-Af Amer) 112.0 BUN/Creatinine Ratio 38.3 H Glucose 95 Calcium 8.7 PG Care Time/CCT Total # of Minutes Spent Total Time Spent with Patient: Total time spent is greater than 50% in coordination of care (as documented) at patient's floor/unit and/or counseling patient: Coding Level of Care Code 31483 SUB INP/OBS CARE 3/50MIN Diagnoses Unable to care for self Z78.9 Catheter-associated urinary tract infection T83.511A; N39.0 Daytime somnolence R40.0 Sepsis A41.9 Sepsis acute organ dysfunction status: unspecified Sepsis type: sepsis due to unspecified organism Cellulitis of right leg L03.115 Acute metabolic encephalopathy G93.41 History of DVT (deep vein thrombosis) Z86.718 Hypothyroidism E03.9 MANAGER ENTRY (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) shunt status Z98.2 Seizure disorder G40.909 Congestive heart failure I50.9 Hypokalemia E87.6 Hypomagnesemia E83.42 Normocytic anemia D64.9 GERD without esophagitis K21.9 Chronic anticoagulation Z79.01 Depression F32.A History of benign brain tumor Z86.011 Morbid obesity with BMI of 45.0-49.9, adult E66.01; Z68.42 Abnormal brain MRI R90.89 UTI (urinary tract infection) due to Enterococcus N39.0; B95.2 Acute severe vertigo R42 Candidal intertrigo B37.2 Expiratory wheezing R06.2 (4) Sepsis Sepsis acute organ dysfunction status: unspecified Sepsis type: sepsis due to unspecified organism Qualified Code(s): A41.9 - Sepsis, unspecified organism
--- NOTE | 2023-06-24 11:07 | Discharge Summary ---
Date of Service June 24, 2023 Admission HPI Per Admitting Provider 52 y/o with history of benign brain tumor resection and resultant seizure disorder and remote TOWER ATTENDANT shunt, VTE on chronic anticoagulation, and CHF who was sent to the ED from her nursing facility with fever and decreased level of consciousness. She is not able to provide any history but does open her eyes to voice and can inconsistently answer yes/no questions. She denies headache, neck pain, chest pain, abdominal pain, shortness of breath. I reviewed the records from [facility] and she was started on oral doxycycline 04/27 for RLE cellulitis in an area where she was scratching. I see a one-time administration of po hydroxyzine 48h ago but otherwise no record of sedating medications. No history of seizure was given. In ED she had one episode of emesis early on, currently denied nausea. EMS gave IV fluids, zofran. Had 2L IVF between EMS and ED. Febrile with Tm 38.6 and tachycardic to 118 but not hypotensive. Started on cefepime and vancomycin. Fever and tachycardia resolved throughout the ED course. Mental status waxed and waned - per ED RN she was more alert and talking more earlier this AM before I saw her midmorning. Family history - unknown/UTO Principal Diagnosis Sepsis and acute metabolic encephalopathy due to RLE cellulitis Discharge Exam PHYSICAL EXAMINATION Last 24h vital signs reviewed, see documentation in flowsheet General: woke up from sleeping this am, exam unchanged for me HEENT: Normocephalic, atraumatic, pupils round and equal, sclerae anicteric, no conjunctival injection, moist mucus membranes Lungs: Normal respiratory effort. Clear to auscultation bilaterally. No RRW Heart: Regular rate and rhythm, no murmurs. No JVD Abdomen: Soft, nontender, nondistended. Bowel sounds present. Extremities: Warm, dry, well-perfused. Chronic bilateral LE venous stasis edema with skin changes with dark/purplish erythema and cobblestoning unchanged, no warmth Neuro: remains sleepy just woke up but talked to me, left facial droop unchanged, LUE weakness unchanged, moves 4 extremities Psych: flat affect and behavior Discharge Data Allergies Allergy/AdvReac Type Severity Reaction Status Date / Time Penicillins Allergy Unknown CAN'T Verified 05/03/23 08:16 REMEMBER phenytoin [From Dilantin] AdvReac Intermediate REALLY BAD Verified 05/03/23 08:16 HEADACHE Consultations 05/03/23 08:38 ED Decision to Admit Stat 05/26/23 10:20 Consult Neurology Routine 06/23/23 09:32 Burn CD for patient Routine Ordered Studies 05/03/23 05:08 CT abd pelvis IV con only Stat CT head/brain wo con Stat 05/08/23 14:34 CT head/brain wo con Urgent CTA head w con [CT angio head w con] Urgent CTA neck with con [CT angio neck with con] Urgent 05/10/23 09:38 MR brain wo/w con Routine 05/25/23 09:08 MR brain wo/w con Routine 05/28/23 11:30 FL video swallow Routine Chest X-Ray 05/03/23 05:02 XR chest 1V portable CLINICAL HISTORY: Sepsis TECHNIQUE: Single frontal radiograph of the chest was obtained. Comparison: Comparison is made to chest radiograph 02/26/2023 FINDINGS: Exam is limited by underpenetration. Calcified aortic knob is seen. The lungs are clear. No evidence of pleural effusion or pneumothorax. IMPRESSION: No acute abnormalities and in particular no radiographic evidence of pneumonia. ACT 112: Negative or not required by law. Electronically signed by: Mejia Moses M.D. 05/03/2023 10:30 AM Abdomen/Pelvis CT 05/03/23 05:08 CT abd pelvis IV con only CLINICAL HISTORY: ams, fever TECHNIQUE: Helical axial images of the abdomen and pelvis were obtained and displayed. Automated dose lowering techniques and/or adjustment according to patient size were utilized for this exam. This exam was performed with intravenous contrast. CT DOSE: 1996.94 mGy.cm COMPARISON: None available at the time of this dictation. FINDINGS: Lower chest: No acute abnormality. Liver: Suggestion of hepatic steatosis. Gallbladder and biliary tree: No calcified gallstones. Normal caliber wall. No intra- or extrahepatic biliary ductal dilation. Pancreas: Unremarkable, no focal lesions. Spleen: Unremarkable. Adrenals: Unremarkable. Kidneys and ureters: Unremarkable. Bladder: Limited evaluation due to underdistention. Reproductive organs: Unremarkable. Bowel: Fatty there is a small hiatal hernia. Lymph nodes Retroperitoneal: Unremarkable. Pelvic: Unremarkable. Mesenteric: Unremarkable. Peritoneum: Normal. Vessels: IVC filter is seen. Abdominal wall: Fatty Bones: Unremarkable. IMPRESSION: No acute abnormalities to explain nausea and vomiting, in particular no evidence of bowel obstruction. ACT 112: Negative or not required by law. Electronically signed by: Mejia Moses M.D. 05/03/2023 8:[address] 05/03/23 05:08 CT head/brain wo con CLINICAL HISTORY: ams Technique: Contiguous axial CT images of the head were acquired from the base of the skull to the vertex without intravenous contrast administration. Images were viewed in brain, subdural and bone windows. Automated dose lowering techniques and/or adjustment according to patient size were utilized for this exam. Comparison: None available at the time of this dictation. Findings: Ventriculomegaly is seen with a TOWER ATTENDANT shunt catheter terminating in the left foramen of Monro. There is an extra-axial simple fluid density collection in the right frontotemporal convexity. There is minimal leftward midline shift of approximately 4 mm. Imaged portions of the paranasal sinuses and mastoid air cells are clear. The orbits appear normal. Postsurgical changes are seen in the right calvarium. Impression: Nonspecific right simple fluid density extra-axial collection. This may represent old epidural hematoma at this patient with right-sided postsurgical changes, versus arachnoid cyst. Correlation with surgical history outside imaging, if available, is recommended. No acute abnormalities are seen. ACT 112: Negative or not required by law. Electronically signed by: Mejia Moses M.D. 05/03/2023 8:22 AM KUB X-Ray 05/07/23 14:04 XR KUB/Abdomen 1 view CLINICAL HISTORY: poor appetite, bed-bound, impaction? TECHNIQUE: 1 view of the abdomen was obtained. Comparison: Comparison is made to CT abdomen pelvis 05/03/2023 FINDINGS: Exam is limited by underpenetration. The osseous structures are grossly unremarkable. The bowel gas pattern is nonobstructive. A moderate amount of stool is noted within the large bowel. IMPRESSION: Moderate stool burden without evidence of fecal impaction. ACT 112: Negative or not required by law. Electronically signed by: Mejia Moses M.D. 05/07/2023 5:[address] 05/08/23 14:[address] DOSE: HISTORY: acute vertigo/diplopia, h/o brain tumor TECHNIQUE: Multiaxial CT images of the head were performed without the use of intravenous contrast. Automated exposure control was utilized for this study. A dose lowering technique was utilized adhering to the principles of ALARA. Comparison: Head CT 05/03/2023. Findings: The paranasal sinuses and left mastoid air cells are clear. There are few opacified right mastoid air cells, unchanged. Right-sided craniotomy again noted. The left frontal approach ventriculostomy catheter terminates within the left foramen of Stephanie. This remains unchanged. Punctate hyperdense focus within the right cerebellar hemisphere on image 9 remains unchanged. This may represent a small calcification. No acute hemorrhage or acute infarct. Stable moderate dilatation of the lateral ventricles. Minimal left midline shift remains stable. Encephalomalacia of the right temporal lobe and right basal ganglia, unchanged. Persistent right frontal extra-axial low density fluid collection remains unchanged. This measures up to 2.2 centers in thickness. Stable 1.7 cm left lateral calcified extra-axial lesion. This may represent a meningioma. Impression: No significant change compared to the prior study. No acute intracranial abnormality. Chronic and postoperative changes again noted. ACT 112: Negative or not required by law. Electronically signed by: Bobby Arthur M.D. 05/08/2023 3:43 PM Head CTA 05/08/23 14:34 CT angio head w con CLINICAL HISTORY: acute vertigo/diplopia TECHNIQUE: CT angiography of the head was performed following intravenous administration of iodinated contrast. Coronal and sagittal MIPS were obtained from the axial data set and were submitted for review. Automated dose lowering techniques and/or adjustment according to patient size were utilized for this examination. All measurements were calculated based on NASCET criteria. Comparison: Comparison is made to CT head 05/03/2023 FINDINGS: CTA Head: The anterior and posterior cerebral circulations are patent. Postsurgical changes are seen in the right calvarium there is a left TOWER ATTENDANT shunt. The left posterior cerebral artery is not well opacified. A distal bifurcation of the anterior cerebral artery noted. 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 This may represent chronic stenosis, however acute infarct cannot be excluded. Otherwise no evidence of vascular abnormality. Assessment of stenosis of the internal carotid arteries is based on NASCET criteria. ACT 112: Negative or not required by law. Electronically signed by: Mejia Moses M.D. 05/08/2023 3:52 PM Neck CTA 05/08/23 14:34 CT ANGIOGRAM OF THE NECK CLINICAL HISTORY: Vertigo. Diplopia. COMPARISON STUDY: No priors. TECHNIQUE: Following the IV administration of 116 of Optiray 320, CT angiogram of the neck was performed from the aortic arch to the skull base. Images are reviewed in the axial, sagittal, and coronal planes. 3-D MIPS images are created and assessed. IV contrast was administered without complication. All measurements were calculated based on NASCET criteria. A dose lowering technique was utilized adhering to the principles of ALARA. CT DOSE: 1098.36 mGy.cm FINDINGS: Thoracic aorta: Visualized portions of the thoracic aorta are normal in caliber. The aortic arch demonstrates standard 3-vessel anatomy. Right carotid arterial system: The right common carotid artery is widely patent, as are the right internal and external carotid arteries. Left carotid arterial system: The left common carotid artery is widely patent, as are the left internal and external carotid arteries. Vertebral arteries: The vertebral arteries are widely patent bilaterally and codominant. Subclavian arteries: Widely patent bilaterally. Intracranial vasculature: The partially visualized intracranial vessels at the skull base appear patent. Jugular veins: Patent bilaterally. Brain parenchyma: The visualized brain parenchyma the skull base is within normal limits. Lung apices: Partially visualized upper lobe lung parenchyma appears clear. Soft tissues: A shunt catheter traverses the soft tissues of the left neck. The visualized pharyngeal soft tissues are normal in appearance noting angiographic phase technique. The oropharyngeal airway appears widely patent. The right lobe of the thyroid gland is mildly enlarged and heterogeneous. The salivary glands are normal in appearance. No cervical lymphadenopathy is seen. Skeletal structures: The skeletal structures are osteopenic. The visualized calvarium at the skull base appears intact. The imaged cervical spine is maintained noting multilevel spondylosis. Sinuses and mastoids: The visualized paranasal sinuses are clear. There is a right mastoid effusion. The left mastoid air cells are well pneumatized. IMPRESSION: Unremarkable CT angiogram of the neck. ACT 112: Negative or not required by law. Electronically signed by: Bob Cardona M.D. 05/08/2023 4:18 PM Brain MRI 05/10/23 09:38 MR brain wo/w con HISTORY: 52 years-old Female recent vertigo/diplopia episode Acute double vision. COMPARISON: Head CT 05/08/2023, 01/04/2023, brain MRI 06/12/2022. TECHNIQUE: Multiplanar multisequence MRI of the brain was obtained with and without. FINDINGS: Study is mildly motion degraded. Right-sided craniotomy again noted. The left frontal approach ventriculostomy catheter terminating within the left foramen of Stephanie is better visualized on the comparison head CT. Subcentimeter focus of blooming artifact within the right cerebellar hemisphere correlating with the hyperdense focus seen on comparison CT appears stable, likely benign. Additional stable foci of susceptibility artifact noted within the brain are unchanged compared to the 06/12/2022 study. No acute intracranial hemorrhage, acute or subacute infarct. Stable moderate dilatation of the lateral ventricles. Involutional changes with moderate T2/FLAIR hyperintense foci throughout the white matter appear unchanged. Areas of encephalomalacia and gliosis again noted. Minimal left midline shift remains stable measuring 3 mm. Encephalomalacia of the right temporal lobe and right basal ganglia, unchanged. Persistent right frontal extra-axial extra-axial collection following CSF signal on all sequences measuring up to 2.2 cm in thickness. Enhancing stable 1.7 cm left lateral calcified extra-axial lesion on image 16 series 8 which likely represents a meningioma. There is a 2.1 x 0.8 x 1.8 cm lobular enhancing focus noted along the anteroinferior left frontal lobe periventricular distribution on image 12 series 10 and image 9 series 11. This finding appears to be stable from the contrast-enhanced head CT from 01/04/2023 and is also likely stable from the noncontrast brain MRI from 06/12/2022. This area also demonstrates mildly increased T2/FLAIR signal. Probable meningioma of the falx cerebri anteriorly on image 15 measuring 8 mm. There is diffuse thickening with increased enhancement of the pachymeninges. IMPRESSION: 1. No acute intracranial hemorrhage, acute or subacute infarct. 2. Indeterminate enhancing 2.1 cm structure within the left frontal lobe anteroinferior periventricular distribution which appears stable from prior. Attention on follow-up recommended. 3. Prior right-sided craniotomy with stable 2.2 cm extra-axial collection suggestive of a hygroma. 4. Thickening with homogeneous enhancement of the pachymeninges is a nonspecific finding. Correlate clinically to exclude intracranial hypotension. ACT 112: Negative or not required by law. The above report was generated using voice recognition software. It may contain grammatical, syntax or spelling errors. Dictated: 05/10/2023 11:40 AM Transcribed: 05/10/2023 12:54 PM Venkat [id number] ZEESHAN_Jaime [id number] Electronically signed by: Calvin Condon M.D. 05/10/2023 1:38 PM Brain MRI 05/25/23 09:08 MRI OF THE BRAIN WITHOUT AND WITH IV CONTRAST CLINICAL HISTORY: h/o tumor w/ resection; pachymeninges enhancement COMPARISON STUDY: Head CT May 08, 2023. MRIs of the brain June 12, 2022 and May 10, 2023. TECHNIQUE: Utilizing a 1.5 Priscilla magnet and dedicated coil, multiplanar, multiecho imaging of the brain was performed pre and postcontrast administration. IV administration of 10.7 mL of Gadavist contrast was uneventful. Thin cut T1 post contrast imaging was performed. FINDINGS: Right sided craniotomy is noted. Right extra-axial fluid collection measuring 9.5 x 2.3 cm is unchanged from earlier exams dating back to June 12, 2022. Left ventriculostomy catheter is in place. Ventricular dilatation is unchanged. Basal cisterns are patent. No new extra axial collections are present. Fluid within the right mastoid air cells is similar to previous MRI. Scattered foci of susceptibility artifact within the brain parenchyma are unchanged since initial MRI of June 12, 2022. No new foci are present. Pachymeningeal thickening and enhancement is unchanged since MRI May 10, 2023. The dural thickening has mildly increased since MRI of June 12, 2022. Multiple clustered enhancing subependymal nodules adjacent to the frontal horn of the left lateral ventricle are unchanged since MRI of May 10, 2023. These appear unchanged from unenhanced MRI of June 12, 2022. The enhancing extra-axial calcified density measuring 1.5 cm overlying the left frontal lobe represents a meningioma. There is a new tiny 3 mm rim-enhancing focus within the left internal capsule on thin cut T1 post contrast image 65 of 130. There is a small corresponding T2 hyperintense focus. Otherwise, the appearance of the brain is unchanged. IMPRESSION: 1. No evidence for acute infarct. 2. Stable ventricular dilatation. Left ventriculostomy catheter in place. 3. Postoperative findings following right craniotomy. Stable extra-axial operative bed fluid collection. This favors hygroma. 4. No change in multiple clustered subependymal enhancing nodules adjacent to the frontal horn of the left lateral ventricle. These are nonspecific and can be assessed on follow-up exams to ensure stability. 5. No change in pachymeningeal dural thickening and enhancement since previous MRI May 10, 2023. Dural thickening has mildly increased since earlier MRI of June 12, 2022. This is nonspecific and could be postoperative. Intracranial hypotension is within the differential. 6. Punctate ring enhancing 3 mm focus within the left internal capsule. This is also nonspecific and can be assessed on follow-up exams. Otherwise, no change in appearance of the brain. ACT 112: Negative or not required by law. Electronically signed by: Nick Dickerson M.D. 05/25/2023 5:53 PM Videofluoroscopic Swallow 05/28/23 11:30 FL video swallow CLINICAL HISTORY: 52 years-old Female with r/o aspiration. Dysphagia with possible aspiration TECHNIQUE: Video fluoroscopic evaluation of swallowing was performed in the AP and lateral projections by the speech pathology staff. The patient is fed varying consistencies of barium. FLUOROSCOPY TIME: 0.49 seconds. 872 images. 8.08 mGy COMPARISON STUDY: CTA neck 05/08/2023 FINDINGS: There is normal hyoid excursion and epiglottic deflection. No significant penetration or aspiration identified. Swallowing function is within normal limits. IMPRESSION: 1. No aspiration identified. 2. Please see the speech pathologist report for detailed findings and recommendations. ACT 112: Negative or not required by law. Electronically signed by: Calvin Condon M.D. 05/28/2023 1:13 PM Knee X-Ray 06/05/23 18:47 LEFT KNEE 2 VIEWS CLINICAL HISTORY: Left knee pain. FINDINGS: AP and crosstable lateral views of the left knee are compared to study dated 02/26/2023. The skeletal structures are osteopenic. No fracture is seen. The joint spaces appear maintained. There are small patellar enthesophytes. No joint effusion is identified. Mild soft tissue edema is noted in the left leg. IMPRESSION: No acute bony abnormality is identified. Electronically signed by: Bob Cardona M.D. 06/06/2023 12:33 AM 06/18/23 06:25 06/23/23 06:26 Hospital Course (1) Unable to care for self: patient entered [facility] in fall 2022 admitted from [facility] 05/03/23 with sepsis and acute encephalopathy due to cellulitis of right leg -these were treated early in hospital course and resolved -discharge was significantly delayed because of lack of placement options family requested that patient NOT return to [facility] alternative SNF desired by family numerous referrals made admission to [facility] in [place] updated patient's sister Selin 06/22. (2) Catheter-associated urinary tract infection: recent ESBL Klebsiella UTI s/p 7 day course of ertapenem patient with recurrent UTIs --> CT a/p in 04/2023 without renal stones or other urinary tract anomalies had VRE UTI earlier in this admission as well cont methenamine BID for UTI prophylaxis (3) Daytime somnolence: extensive w/u done while hospitalized - EEG, CT head, MRI brain x 2, labs, Rx of UTIs, etc despite such had continued with daytime sleepiness overnight oximetry study was negative with no hypoxia events detected Dr Muro trialed her on modafanil 100mg daily in the event she has a form of narcolepsy or similar has tolerated such and having a favorable response will recommend referral to neurology/sleep medicine post-d/c for formal sleep study (typically a 2-day study for narcolepsy) (4) Sepsis: present on admission 2nd RLE cellulitis - resolved no sepsis since that time despite recurrent UTIs (5) Cellulitis of right leg: present at time of admission, treated and resolved no recurrent cellulitis since then has chronic lymphedema - would benefit from compression tolerating single layer tubigrip stockings she has minor blistering on left ball from her lymphedema - cont compression and daily inspection of skin lasix prn but diuretics typically not terribly helpful with edema from lymphedema (6) Acute metabolic encephalopathy: resolved presented with confusion on day of admission presumed 2nd to sepsis/RLE cellulitis confusion then resolved since the early portion of the admission has intermittently had lethargy/sleepiness and pleasant confusion head CT x 2 this admission neg for acute findings of note - we received CT head reports from [facility] as well as CT/MRI brain images via PACs spoke with radiology - they compared her outside/old CT head with the CTs this admission - largely unchanged MRI brain WITHOUT acute or chronic stroke most findings are chronic -- MRI here was compared to MRI brain done at [facility] 06/2022 (MRI images from 06/2022 are in PACS) 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 -- acute met encephalopathy from infection (suspected as main culprit); hospital delirium; subclinical seizures; TIA events; poor sleep at night; narcolepsy (see #1 above) vs other EEG did not show seizure focus ; cxct-cox-nila continue vimpat BID repeat MRI brain 05/25/23 largely unchanged from her MRI brain done 05/10/23 Dr Herson Ashley performed neurology consultation Dr Ashley does not believe she has EDUCATIONAL ADMINISTRATOR infection; LP not advised fluctuating mental status likely due to recent sepsis/UTI/metabolic factors in the setting of baseline, severe anatomical abnormalities of the brain (prior brain tumor resection on right, encephalomalacia, hygroma, etc) ?narcolepsy or some other form of sleep disorder again see above re: modafanil I suspect patient has cognitive impairment in the face of her prior brain tumor, resection, and significantly abnormal brain anatomy (7) History of DVT (deep vein thrombosis): Continue apixaban BID Has IVC filter in place (8) Hypothyroidism: Continue levothyroxine TSH 2.3 (9) TOWER ATTENDANT (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) shunt status: placed in 03/2006 at [facility] TOWER ATTENDANT shunt is a Delta non-programmable unit - MR compatible TOWER ATTENDANT shunt appears stable on CT head and MRIs (10) Seizure disorder: Continue lacosamide -per Selin her sister vimpat was started summer 2022 after two admissions with acute encephalopathy associated with UTIs, no clearcut seizures were observed EEG done earlier in the stay negative for seizure focus (11) Congestive heart failure: Chronic diastolic heart failure Echo 02/27 with normal EF weight is up significantly since last time she was weighed could be weight gain from use of new SSRI (Prozac) doesn't examine in decompensated CHF but resumed lasix 20mg po daily prn BMP wnl today (12) Hypokalemia: Replaced Resolved (13) Hypomagnesemia: replaced resolved (14) Normocytic anemia: ferritin 58 transferrin low-normal suspect she has had Fe deficiency s/p venofer 300mg IV x 4 doses total this admission etiology of low Fe?? fecal occult neg x 2 (03/29, 05/31) could be dietary - prior to admission was eating very poorly, would skips meals, was not eating nutritious meals, etc B12 level - mid 300s; supplementing is already on folate supplementation 1mg daily last Hb 10.5 and continues to trend up over time (15) GERD without esophagitis: cont PPI reflux/aspiration precautions (16) Chronic anticoagulation: apixaban BID (17) Depression: cont prozac 40mg daily (18) History of benign brain tumor: left sided hemiplegia is presumably due to atrophy/encephalomalacia from her prior brain tumor resection (right sided thalamic astrocytoma per records) she also appears to have 2 meningiomas on her MRI brain -- 1. stable 1.7 cm left lateral calcified extra-axial lesion on image 16 series 8 which likely represents a meningioma. 2. probable meningioma of the falx cerebri anteriorly on image 15 measuring 8 mm. post-discharge she will need -- 1. neurology follow-up to follow seizure d/o, imaging, etc 2. neurosurgery (19) Morbid obesity with BMI of 45.0-49.9, adult: BMI 49-50 wt 113.7 kg (20) Abnormal brain MRI: 05/10/23 brain MRI showed thickening of the pachymeninges she does not have any h/o CSF leak or postural headaches the thickening of the pachymeninges is a nonspecific finding -- could be dural thickening per radiology repeat MRI brain 05/25/23 with stable pachymeninges thus, likely a chronic finding appreciate neurology consultation & recs (21) UTI (urinary tract infection) due to Enterococcus: VRE earlier in the stay s/p daptomycin x 7 days for that (22) Acute severe vertigo: had a 2 minute episode of spinning associated with double vision on 05/08/23. no tinnitus or hearing changes. if this was a TIA event she is already on Eliquis BID + aspirin 81mg daily. repeat head CT on 05/[address] 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 echo late fall 2022 was wnl. MRI brain was obtained after records from [facility] in [place] arrived. She had her shunt placed there in 2006. TOWER ATTENDANT shunt is a non-programmable Delta device which is MRI compatible. NO acute or chronic CVA seen but numerous findings related to her prior brain tumor resection. No recurrent episodes since 05/08. (23) Candidal intertrigo: completed 14 days in total of diflucan for such earlier in the stay cont barrier creams/powders for itching - cont zyrtec 5mg HS. jarod was ineffective. (24) Expiratory wheezing: intermittent expiratory "wheeze" sound on exam - appears to come from upper airway as opposed to lower respiratory tract no change with use of Breo over the last few weeks - stopped no prior h/o asthma video swallow - no aspiration no evidence of pulmonary edema thus "cardiac wheezing" unlikely I am suspicious for tracheomalacia / EDAC (excessive dynamic airway collapse) this condition mimics asthma - expiratory wheezing is prominent due to the airway collapse her symptoms are always expiratory with taking deep breaths and when trying to move If she has such -- Rx is weight loss, CPAP/BIPAP, etc. refer to pulmonology in [place] for their opinion Plan updated pt's sister Selin by phone 06/21/23 and again 06/23 d/c to [facility] in [place] 06/23 Total Time Total Time Spent Total Time Spent (In Minutes): I personally spent: 35 minutes today on clinical care activities including: reviewing chart notes and vital signs discussion with director of home care hospice examining and counseling the patient writing orders documentation Discharge Plan Discharge Items Patient Disposition: Transfer Snf Fac Reason For Visit: SEPSIS Discharge Diagnosis: 1. sepsis due to RLE cellulitis - present on admission - resolved 2. acute metabolic encephalopathy at time of admission - resolved with treatment of #1 ; EEG negative for seizure; MRI brain with no acute findings 3. baseline cognitive impairment/possible early dementia 4. hospital delirium/confusion - multifactorial - has improved throughout this prolonged hospitalization 5. suspicion for narcolepsy - 2-day sleep study recommended 6. suspected obesity-hypoventilation syndrome 7. suspected sleep-disordered breathing/TERI 8. 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 morbid obesity with BMI 50 10. chronic bilateral LE lymphedema 11. chronic diastolic CHF 12. catheter-associated UTI 13. hypothyroidism 14. TOWER ATTENDANT shunt status - placed in 03/2006 at [facility]; TOWER ATTENDANT shunt is a Delta non-programmable unit -- MR compatible 15. history of DVT 16. history of suspected seizures 17. GERD 18. candidal dermatitis - recurrent - groin, skin folds, etc 19. chronic, intermittent expiratory wheezing - suspicion for tracheomalacia with EDAC (excessive dynamic airway collapse) - referral to pulmonology advised 20. history of IVC filter 21. sacral/back skin breakdown 22. meningioma on MRI brain 23. iron deficiency anemia s/p IV venofer x 4 infusions during her stay; discharge hemoglobin >10 Activity: Resume your previous activity Non-emergency contact: Primary Care Provider, Surgeon and Neurologist Call non-emergency contact if: you have any medication questions and your symptoms worsen Follow-up/Referrals: Arnav Martínez MD [Outside Practitioners] - (first available appointment; to follow TOWER ATTENDANT shunt, meningiomas on MRI brain) Ilsa Braswell D.O. [Primary Care Provider] - Diet: Heart Healthy Addtl Attending Provider Instructions: 1. tubigrip stockings, 1-layer, to b/l lower extremities (knee-highs) 2. upright past 45 degrees at all times for meals 3. PT, OT - eval and Rx 4. CBC, BMP, Magnesium level - 5 days for stability - results to medical authorization specialist 5. referral to [place] [facility] to obtain sleep study and to investigate ? of tracheomalacia/EDAC 6. referral to neurology for h/o seizure disorder, abnormal brain MRI, etc. 7. referral to Dr Arnav Martínez, neurosurgery, for history of TOWER ATTENDANT shunt, abnormal brain MRI, meningiomas, etc. 8. seizure precautions 9. wound care consult for sacral/lower back skin breakdown Current wound care instructions: To BLE- wash legs. Apply moisturizer. Apply single layer Tubigrip to BLE from base of toes to just below knees. RN can remove to assess/wash legs and is able to reapply . Buttocks: apply a dusting of stoma powder to open areas and cover with zinc based cream apply as needed . Abdominal folds apply a dusting of antifungal powder and ABDs to help keep area dry. Waffle boots while in bed. Pending Studies at Discharge: No Stand-Alone Forms: My [facility] Skilled Items Patient informed of condition?: Yes DNR: No Discharge Level of Care: Skilled Communicable Disease: Yes (contact precautions due to h/o ESBL klebsiella and VRE (both urine)) Discharge Prognosis: Stable Lines: None Urinary Catheter: No Medications and DC Order Prescriptions: New cetirizine 10 mg Tablet 5 mg PO HS Qty: 30 0RF methenamine hippurate 1 gram Tablet 1 g PO BID Qty: 60 0RF modafinil 100 mg Tablet 100 mg PO QAM Qty: 30 0RF polyethylene glycol 3350 [Miralax] 17 gram Powder In Packet 17 g PO BID Qty: 60 0RF magnesium oxide 400 mg (241.3 mg magnesium) Tablet 400 mg PO BID Qty: 60 0RF cyanocobalamin (vitamin B-12) 500 mcg Tablet 1,000 mcg PO QAM Qty: 60 0RF ketoconazole 2 % Cream 1 applic EXT BID Qty: 30 0RF Rx Instructions: apply to bottoms of b/l feet including in between toes x 14 days. Dermacerin Cream 1 applic EXT BID Qty: 1 0RF Rx Instructions: apply to areas of dry skin on legs, arms, etc. Continued magnesium hydroxide [Milk of Magnesia] 400 mg/5 mL Suspension 2,400 mg PO DAILY PRN (Reason: Constipation) Rx Instructions: If no BM, administer on the morning of the 3rd day multivitamin Tablet 1 tab PO QAM Qty: 30 0RF sennosides [Senokot] 8.6 mg Tablet 17.2 mg PO HS Qty: 60 0RF potassium chloride 10 mEq Capsule, Extended Release 20 meq PO DAILY Qty: 60 0RF acetaminophen [Tylenol] 325 mg Tablet 650 mg PO Q6H PRN (Reason: PAIN/FEVER) Qty: 30 0RF levothyroxine 25 mcg tablet 25 mcg PO DAILY Qty: 30 0RF bisacodyl [Dulcolax (bisacodyl)] 10 mg Suppository 10 mg SC DAILY PRN (Reason: Constipation) Qty: 5 0RF Rx Instructions: If no BM on the evening of the 3rd day with no BM pantoprazole 40 mg Tablet,Delayed Release (Dr/Ec) 40 mg PO DAILY Qty: 30 0RF Enema 19-7 gram/118 mL Enema 118 ml SC DAILY PRN (Reason: Constipation) Qty: 1 0RF Rx Instructions: Administer on the morning of the 4th day without a BM. If no results from enema, notify aspirin 81 mg tablet,chewable 81 mg PO DAILY Qty: 90 0RF folic acid 1 mg Tablet 1 mg PO DAILY Qty: 30 0RF lacosamide 100 mg tablet 100 mg PO Q12H Qty: 60 0RF Eliquis 5 mg Tablet 5 mg PO BID Qty: 60 0RF Changed fluoxetine 40 mg capsule 40 mg PO DAILY Qty: 30 0RF furosemide 40 mg tablet 20 mg PO DAILY PRN (Reason: weight gain of more than 3 pounds in 24 hours) Qty: 30 0RF Discontinued oxybutynin chloride 15 mg Tablet Extended Release 24hr 15 mg PO DAILY hydroxyzine HCl 25 mg Tablet 25 mg PO Q6H PRN (Reason: Itching) Rx Instructions: Start Date 04/30/23 - End Date 05/14/23 doxycycline hyclate 100 mg Tablet 100 mg PO BID Rx Instructions: Start Date 04/28/23 - End Date 05/08/23 lorazepam [Ativan] 2 mg/mL Syringe 1 mg IM .[id number] MDD 4mg/24hrs PRN (Reason: epilepsy) Discharge Orders: Discharge Order (Routine); Ordered 06/24/23 Ordered By: Hattie Muro Admission Data Admit Date/Time: 05/03/23 10:10 Attending Provider: Hattie Muro Admit Provider: Hattie Muro Primary Care Provider: Ilsa Braswell Other Providers: [facility]; Hattie Muro; [facility]; [facility]; Herson Ashley Other Interventions: Discharge Summary Assessment (RN) Last Done: 06/24/23 08:54 Coding Level of Care Code 15874 INP/OBS DISCH >30 MIN Diagnoses Unable to care for self Z78.9 Catheter-associated urinary tract infection T83.511A; N39.0 Daytime somnolence R40.0 Sepsis A41.9 Sepsis acute organ dysfunction status: unspecified Sepsis type: sepsis due to unspecified organism Cellulitis of right leg L03.115 Acute metabolic encephalopathy G93.41 History of DVT (deep vein thrombosis) Z86.718 Hypothyroidism E03.9 TOWER ATTENDANT (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) shunt status Z98.2 Seizure disorder G40.909 Congestive heart failure I50.9 Hypokalemia E87.6 Hypomagnesemia E83.42 Normocytic anemia D64.9 GERD without esophagitis K21.9 Chronic anticoagulation Z79.01 Depression F32.A History of benign brain tumor Z86.011 Morbid obesity with BMI of 45.0-49.9, adult E66.01; Z68.42 Abnormal brain MRI R90.89 UTI (urinary tract infection) due to Enterococcus N39.0; B95.2 Acute severe vertigo R42 Candidal intertrigo B37.2 Expiratory wheezing R06.2
== END 2023-06-24 11:30 | DRG 871 ==
LOC: ED 04:34 → SUATTDRO 10:10 → EDINP 10:10 → 2E 11:24 → 3E 05-11 18:06

== ENCOUNTER 2024-07-04 18:34 | Inpatient (IN) ==
--- NOTE | 2024-07-04 18:53 | Emergency Department Note ---
Impression & Plan Generalized weakness, Seizure disorder, Acute hypernatremia, Acute dehydration ED Provider Note NAME: LEISA JACKSON AGE: 53 SEX: F : 1970 ARRIVES VIA: Ambulance INFORMANT: Patient ED PROVIDER(S): Zay Cerda DO CHIEF COMPLAINT: Weakness HPI: Patient is a 53-year-old female with a past medical history of adrenal insufficiency, depression, encephalopathy, seizure disorder, CHF with a recent CVA who was [facility] from [place] [facility]. Today family thought the patient was weaker and consequently had her sent in to the ER. She is currently being treated for UTI. Patient denies any headache or change in vision. No chest pain or shortness of breath. No nausea, vomiting, or diarrhea. She denies any urinary symptoms. ADDITIONAL HISTORY OBTAINED: Per EMS is present at bedside they provide additional history and note that patient is unable to move her left side. Chronic Medical/Social Conditions Affecting Care: Per HPI PAST MEDICAL HISTORY:See Below PAST SURGICAL HISTORY:See Below FAMILY HISTORY:See Below SOCIAL HISTORY:See Below HOME MEDICATIONS:See Below ALLERGIES:See Below VITALS:See Below PHYSICAL EXAMINATION: GENERAL: Sitting up in bed, alert, chronically ill-appearing, disheveled EYE EXAM: normal conjunctiva. PERRL and EOM's grossly intact. OROPHARYNX: no exudate, no erythema, lips, buccal mucosa, and tongue normal and mucous membranes are moist NECK: supple, no nuchal rigidity, no adenopathy, non-tender LUNGS: Clear to auscultation. Normal chest wall mechanics HEART: no murmurs, S1 normal and S2 normal ABDOMEN: abdomen soft, non-tender, normo-active bowel sounds, no masses, no rebound or guarding. BACK: Back is symmetrical on inspection and there is no deformity, no midline tenderness, no CVA tenderness. SKIN: no rashes and no bruising UPPER EXTREMITIES: upper extremities are grossly normal. LOWER EXTREMITIES: No pitting edema. NEURO EXAM: Awake alert oriented to person not place, year, or month. Cranial nerves II through XII intact. Left upper extremity with contracture of the hand and unable to move at all. Able to slightly move left lower extremity. Full range of motion of the right upper and right lowers. MEDICAL DECISION MAKING: Patient is a 53-year-old female who presents ER for the above-stated complaint. IV was established and blood work was obtained. Labs show no significant leukocytosis. Mild anemia at 7.6. Per daughter who is present at bedside and provides additional history this was her hemoglobin and prior to discharge at [place] several days ago. BMP with hypernatremia at 149. LFTs and bilirubin were unremarkable. Lipase was normal. Viral panel pending. UA was ordered but pending upon admission. Chest x-ray was unremarkable. CT of the head showed no new acute pathology. There is no significant change in mental status. She currently being treated for UTI. Consults/Care Managements Discussions: Per [facility] Triage Nursing notes reviewed. Limited review of prior medical records performed Vital Signs: reviewed and remarkable for no significant abnormalities Differential diagnosis: Infection, dehydration, metabolic abnormality, hypo/hyperglycemia, electrolyte disturbance, anemia, hypoxia, cardiac sources, intracerebral event, toxicologic, neurologic, as well as other pathologies. ER treatment provided: See below Diagnostics interpreted by me include EKG and cardiac monitoring as listed below: -Cardiac Monitoring: An order was placed for continuous cardiac monitoring. The monitor shows a rate of 87 with sinus rhythm. -ECG: Sinus rhythm rate 79 Normal axis No PVCs QTc 470 -Laboratory studies:Interpreted by me as stated above in MDM and shown below. Imaging studies: Xrays: As interpreted by me: Portable AP upright 1 view of the chest shows no focal Lutrate CTs show: CT head was negative per radiology Procedures:none Critical Care: None Past Med/Surg History Problem List (Updated 07/04/24 @ 21:39 by Zay Cerda DO) Acute dehydration (Acute) Acute hypernatremia (Acute) Expiratory wheezing Unable to care for self Low grade fever Catheter-associated urinary tract infection Abnormal urinalysis Left knee pain Abnormal cortisol level Daytime somnolence Adrenal insufficiency Dysphagia Candidal intertrigo UTI (urinary tract infection) due to Enterococcus Abnormal urine findings Abnormal brain MRI Acute severe vertigo Morbid obesity with BMI of 45.0-49.9, adult Depression Acute metabolic encephalopathy History of DVT (deep vein thrombosis) Hypothyroidism [employer] (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) shunt status Seizure disorder (Acute) Congestive heart failure 02/27/23 Echo EF 55-60% technically limited study Sepsis (Acute) Cellulitis of right leg (Acute) Hypomagnesemia (Acute) Hypokalemia (Acute) Normocytic anemia GERD without esophagitis Generalized weakness (Acute) Bilateral leg edema Shortness of breath Ambulatory dysfunction (Acute) History of CHF (congestive heart failure) (Acute) History of epilepsy (Acute) Leg swelling (Acute) Medical History History of DVT (deep vein thrombosis) GERD (gastroesophageal reflux disease) History of benign brain tumor Seizure disorder Congestive heart failure 02/27/23 Echo EF 55-60% technically limited study Hypothyroidism Surgical History TONE [employer] (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) shunt status Social History Smoking Status: Never smoker Second Hand Exposure: No; Do You Dip or Chew Tobacco: No; Hx Alcohol Use: No Hx Substance Use: No Preferred Language: Moroccan Communication Ability: Effective Scroll Shear Operator Required: No Beliefs That Will Affect Care: None Current Living Situation: Rehab Feels Safe at Home: Yes Assistive Devices: Walker and Wheelchair Allergies Allergies Allergy/AdvReac Type Severity Reaction Status Date / Time Penicillins Allergy Unknown ON Verified 07/04/24 19:33 [facility] MED LIST phenytoin [From Dilantin] AdvReac Intermediate REALLY BAD Verified 07/04/24 19:33 [facility] Home Meds Home Medications Medication Instructions Recorded Confirmed magnesium hydroxide 400 mg/5 mL 2,400 mg PO DAILY PRN Constipation 05/03/23 07/04/24 oral suspension (Milk of Magnesia) albuterol sulfate 90 mcg/actuation 2 puff inhalation Q6H PRN Wheezing 07/04/24 07/04/24 aerosol inhaler atorvastatin 80 mg tablet 80 mg PO PM 07/04/24 07/04/24 cephalexin 500 mg tablet 500 mg PO Q12H 07/04/24 07/04/24 clopidogrel 75 mg tablet (Plavix) 75 mg PO DAILY 07/04/24 07/04/24 famotidine 20 mg tablet (Pepcid) 20 mg PO DAILY 07/04/24 07/04/24 fluconazole 150 mg tablet 150 mg PO QPM 07/04/24 07/04/24 fluoxetine 10 mg tablet 30 mg PO DAILY 07/04/24 07/04/24 fluticasone fur. 100 mcg-umeclid 1 inh inhalation DAILY 07/04/24 07/04/24 62.5 mcg-vilant 25 mcg inhalat.powder (Trelegy Ellipta) hydroxyzine HCl 25 mg tablet 25 mg PO Q6H PRN Itching 07/04/24 07/04/24 levothyroxine 25 mcg tablet 25 mcg PO DAILYBB 07/04/24 07/04/24 magnesium oxide 400 mg (241.3 mg 400 mg PO QAM 07/04/24 07/04/24 magnesium) tablet menthol 0.44 %-zinc oxide 20.6 % 1 applic topical TID 07/04/24 07/04/24 topical ointment (Calmoseptine) nystatin 100,000 unit/gram topical 1 applic topical BID 07/04/24 07/04/24 powder (Nystop) oxybutynin chloride 15 mg 15 mg PO DAILY 07/04/24 07/04/24 tablet,extended release 24 hr potassium chloride 10 mEq 10 meq PO DAILY 07/04/24 07/04/24 capsule,extended release sennosides 8.6 mg tablet (Senokot) 17.2 mg PO Q24H PRN Constipation 07/04/24 07/04/24 Previous Rx's Medication Instructions Recorded acetaminophen 325 mg tablet 650 mg (2 x 325 mg) PO Q6H PRN 06/24/23 (Tylenol) PAIN/FEVER #30 tabs aspirin 81 mg chewable tablet 81 mg PO DAILY #90 tabs 06/24/23 bisacodyl 10 mg rectal suppository 10 mg FL DAILY PRN Constipation #5 06/24/23 (Dulcolax (bisacodyl)) ea folic acid 1 mg tablet 1 mg PO DAILY #30 tabs 06/24/23 lacosamide 100 mg tablet 100 mg PO Q12H #60 tabs 06/24/23 sodium phosphates 19 gram-7 118 ml FL DAILY PRN Constipation 06/24/23 gram/118 mL enema (Enema) #1 mL Results & Data (ED) Vital Signs Vital Signs - 24 hr 07/04/24 18:41 07/04/24 18:47 07/04/24 18:47 Temperature 37.1 C Temperature Source Oral Pulse Rate 83 80 Pulse Rate [Finger] Pulse Rhythm Regular Pulse Rhythm [Finger] Pulse Strength Normal Pulse Strength [Finger] Respiratory Rate 20 Respiratory Effort / Characteristics Non-Labored Spontaneous Respiratory Depth Normal Blood Pressure 147/74 H Blood Pressure [Right Arm] Blood Pressure Mean 98 Blood Pressure Mean [Right Arm] Blood Pressure Position Sitting Pulse Oximetry 94 92 Oxygen Delivery Method Room Air Oxygen Flow Rate 0 Sepsis Recent Fever Within 48 Hours No Sepsis New/Unexplained Change in Mental Status N/A Sepsis Action Taken by Nursing No Action Required Oxygen Flow Rate - Titration 0 Pulse Oximetry Post Tiitration 92 07/04/24 18:47 07/04/24 18:47 Temperature 37.1 C Temperature Source Oral Pulse Rate 80 Pulse Rate [Finger] 80 Pulse Rhythm Regular Pulse Rhythm [Finger] Regular Pulse Strength Pulse Strength [Finger] Normal Respiratory Rate 18 Respiratory Effort / Characteristics Non-Labored Spontaneous Respiratory Depth Normal Blood Pressure Blood Pressure [Right Arm] 147/74 H Blood Pressure Mean Blood Pressure Mean [Right Arm] 98 Blood Pressure Position Pulse Oximetry 94 92 Oxygen Delivery Method Room Air Room Air Oxygen Flow Rate Sepsis Recent Fever Within 48 Hours Sepsis New/Unexplained Change in Mental Status Sepsis Action Taken by Nursing Oxygen Flow Rate - Titration Pulse Oximetry Post Tiitration Laboratory Data 07/04/24 18:51 07/04/24 18:51 Lab Results 07/04/24 07/04/24 07/04/24 Range/Units 18:51 18:52 19:56 WBC 5.67 (4.8-10.8) K/ul RBC 3.58 L (4.20-5.40) M/uL Hgb 7.6 L (12.0-16.0) g/dl Hct 27.2 L (37.0-47.0) % MCV 76.0 L (80.0-100.0) fL MCH 21.2 L (25.0-34.0) pg MCHC 27.9 L (32.0-36.0) g/dL RDW Std Deviation 49.6 H (36.4-46.3) fL RDW Coeff of Neo 18.0 H (11.5-14.5) % Plt Count 320 (130-400) K/uL MPV 11.1 (9.4-12.4) fL Immature Gran % (Auto) 0.2 % Neut % (Auto) 57.4 % Lymph % (Auto) 27.7 % Nelson % (Auto) 6.9 % Eos % (Auto) 7.6 % Baso % (Auto) 0.2 % Neut # (Auto) 3.26 (1.40-6.50) K/uL Lymph # (Auto) 1.57 (1.20-3.40) K/uL Nelson # (Auto) 0.39 (0.11-0.59) K/uL Eos # (Auto) 0.43 (0.00-0.50) K/uL Baso # (Auto) 0.01 (0.00-0.20) K/uL Immature Gran # (Auto) 0.01 (0.01-0.20) K/uL Hypochromasia Present Sodium 149 H (136-145) mmol/L Potassium 3.6 (3.5-5.1) mmol/L Chloride 113 H (98-107) mmol/L Carbon Dioxide 26 (21-32) mmol/L Anion Gap 10 (3-11) BUN 9 (6-23) mg/dl Creatinine 0.57 L (0.6-1.2) mg/dl Est Cr Clr Drug Dosing 125.5 ml/min eGFR 107.25 BUN/Creatinine Ratio 15.8 (10-20) Glucose 104 H (70-99(Fasting)) mg/dl Osmolality 305 H (280-300) mOsm/kg Calcium 8.3 L (8.6-10.3) mg/dl Total Bilirubin 0.4 (0.2-1.0) mg/dl AST 14 (13-39) U/L ALT 13 (7-52) U/L Alkaline Phosphatase 61 (34-104) U/L Total Protein 6.4 (6.0-8.3) gm/dl Albumin 3.1 L (3.4-5.0) gm/dl Globulin 3.3 (2.5-4.0) gm/dl Albumin/Globulin Ratio 0.9 (0.9-2) Lipase 21 (11-82) U/L Blood Type A Positive Antibody Screen NEGATIVE Administered Medications Discontinued Medications Sodium Chloride (Nss) 1,000 mls @ 999 mls/hr IV .Q1H1M ONE Stop: 07/04/24 19:47 Last Admin: 07/04/24 19:17 Dose: 999 mls/hr Documented By: FATUMA Imaging Data Radiologist's Impression: Head CT 07/04/24 18:47 CT head without contrast History: Lethargic Comparison: 05/08/2023 Technique: Using multidetector thin collimation helical acquisition technique, axial, coronal and sagittal CT images from the skull base to the vertex were obtained without intravenous contrast. Dose reduction techniques were achieved by using automatic exposure control and/or adjustment of mA and/or kV according to patient size and/or use of iterative reconstruction technique. Findings: No acute hemorrhage or acute infarct. Stable moderate dilatation of the lateral ventricles. Minimal left midline shift remains stable. Encephalomalacia of the right temporal lobe and right basal ganglia, unchanged. Persistent right frontal extra-axial low density fluid collection remains unchanged. Stable 1.7 cm left lateral calcified extra-axial lesion, which may represent a bony exostosis, given the proximity to the craniotomy, versus a meningioma. The paranasal sinuses and left mastoid air cells are clear. There are few opacified right mastoid air cells, unchanged. Right-sided craniotomy again noted. The left frontal approach ventriculostomy catheter terminates near the foramen of Monro. Impression: No acute intracranial pathology or significant change. Chronic and postoperative changes again noted. Electronically signed by Jose Clemens 07-04-2024 7:24 PM Discharge Plan Visit Data Chief Complaint: Lethargic Stated Complaint: LETHARGIC ED Provider: Zay Cerda Discharge Problem: Generalized weakness, Seizure disorder, Acute hypernatremia, Acute dehydration Forms Stand Alone Forms: My [facility] [employer] Prescriptions Prescriptions: No Action magnesium hydroxide [Milk of Magnesia] 400 mg/5 mL Suspension 2,400 mg PO DAILY PRN (Reason: Constipation) Rx Instructions: If no BM, administer on the morning of the 3rd day acetaminophen [Tylenol] 325 mg Tablet 650 mg PO Q6H PRN (Reason: PAIN/FEVER) Qty: 30 0RF bisacodyl [Dulcolax (bisacodyl)] 10 mg Suppository 10 mg FL DAILY PRN (Reason: Constipation) Qty: 5 0RF Rx Instructions: If no BM on the evening of the 3rd day with no BM Enema 19-7 gram/118 mL Enema 118 ml FL DAILY PRN (Reason: Constipation) Qty: 1 0RF Rx Instructions: Administer on the morning of the 4th day without a BM. If no results from enema, notify aspirin 81 mg tablet,chewable 81 mg PO DAILY Qty: 90 0RF folic acid 1 mg Tablet 1 mg PO DAILY Qty: 30 0RF lacosamide 100 mg tablet 100 mg PO Q12H Qty: 60 0RF atorvastatin 80 mg Tablet 80 mg PO PM oxybutynin chloride 15 mg Tablet Extended Release 24hr 15 mg PO DAILY fluconazole [Diflucan] 150 mg Tablet 150 mg PO QPM Rx Instructions: STARTED 07/02/24 FOR 7 DAYS, ENDS 07/08/24 fluoxetine 10 mg Tablet 30 mg PO DAILY clopidogrel [Plavix] 75 mg Tablet 75 mg PO DAILY famotidine [Pepcid] 20 mg Tablet 20 mg PO DAILY cephalexin 500 mg Tablet 500 mg PO Q12H Rx Instructions: STARTED 06/28/24 FOR 7 DAYS, ENDS 07/04/24 WITH PM DOSE hydroxyzine HCl 25 mg Tablet 25 mg PO Q6H PRN (Reason: Itching) nystatin [Nystop] 100,000 unit/gram Powder 1 applic TOPICAL BID Rx Instructions: APPLY UNDER BREASTS, ABD FOLDS, UNDER ARMS/ USE PRN IN GROIN NEEDED. albuterol sulfate 90 mcg/actuation Hfa Aerosol Inhaler 2 puff INHALATION Q6H PRN (Reason: Wheezing) menthol-zinc oxide [Calmoseptine] 0.44-20.6 % Ointment 1 applic TOPICAL TID Rx Instructions: APPLY TO BUTTOCKS/USE PRN IF NEEDED. Trelegy Ellipta 100-62.5-25 mcg Blister With Device 1 inh INHALATION DAILY sennosides [Senokot] 8.6 mg tablet 17.2 mg PO Q24H PRN (Reason: Constipation) potassium chloride 10 mEq capsule, extended release 10 meq PO DAILY levothyroxine 25 mcg tablet 25 mcg PO DAILYBB magnesium oxide 400 mg (241.3 mg magnesium) tablet 400 mg PO QAM Referrals Referrals: Ilsa Braswell D.O. [Primary Care Provider] -
[2024-07-04 19:16] LABS: Basophils # (auto) 0.01 K/uL (0.00-0.20); Basophils % (auto) 0.2 %; Eosinophils # (auto) 0.43 K/uL (0.00-0.50); Eosinophils % (auto) 7.6 %; Hematocrit (blood only) 27.2 % (37.0-47.0); Hemoglobin 7.6 g/dl (12.0-16.0); Immature Granulocytes # (auto) 0.01 K/uL (0.01-0.20); Immature Granulocytes % (auto) 0.2 %; Lymphocytes # (auto) 1.57 K/uL (1.20-3.40); Lymphocytes % (auto) 27.7 %; Mean Corpuscular Hemoglobin 21.2 pg (25.0-34.0); Mean Corpuscular Hgb Conc 27.9 g/dL (32.0-36.0); Mean Platelet Volume 11.1 fL (9.4-12.4); Monocytes # (auto) 0.39 K/uL (0.11-0.59); Monocytes % (auto) 6.9 %; Neutrophils # (auto) 3.26 K/uL (1.40-6.50); Neutrophils % (auto) 57.4 %; Platelet Count 320 K/uL (130-400); RDW Standard Deviation 49.6 fL (36.4-46.3); Red Blood Count 3.58 M/uL (4.20-5.40); White Blood Count 5.67 K/ul (4.8-10.8)
[2024-07-04] MEDS: SODIUM CHLORIDE 0.9% 1,000 ML IV ONE (19:17)
[2024-07-04 19:25] LABS: Albumin Globulin Ratio 0.9 (0.9-2); Albumin Level 3.1 gm/dl (3.4-5.0); BUN Creatinine Ratio 15.8 (10-20); Bilirubin,Total 0.4 mg/dl (0.2-1.0); Calcium 8.3 mg/dl (8.6-10.3); Creatinine Clr Calc Pharmacy 125.5 ml/min; Globulin 3.3 gm/dl (2.5-4.0); Potassium 3.6 mmol/L (3.5-5.1); Total Protein 6.4 gm/dl (6.0-8.3)
--- NOTE | 2024-07-04 19:25 | CT Scan Report ---
CT head without contrast History: Lethargic Comparison: 05/08/2023 Technique: Using multidetector thin collimation helical acquisition technique, axial, coronal and sagittal CT images from the skull base to the vertex were obtained without intravenous contrast. Dose reduction techniques were achieved by using automatic exposure control and/or adjustment of mA and/or kV according to patient size and/or use of iterative reconstruction technique. Findings: No acute hemorrhage or acute infarct. Stable moderate dilatation of the lateral ventricles. Minimal left midline shift remains stable. Encephalomalacia of the right temporal lobe and right basal ganglia, unchanged. Persistent right frontal extra-axial low density fluid collection remains unchanged. Stable 1.7 cm left lateral calcified extra-axial lesion, which may represent a bony exostosis, given the proximity to the craniotomy, versus a meningioma. The paranasal sinuses and left mastoid air cells are clear. There are few opacified right mastoid air cells, unchanged. Right-sided craniotomy again noted. The left frontal approach ventriculostomy catheter terminates near the foramen of Monro. Impression: No acute intracranial pathology or significant change. Chronic and postoperative changes again noted. Electronically signed by Jose Clemens 07-04-2024 7:24 PM
[2024-07-04 19:34] LABS: Hypochromasia Present
--- NOTE | 2024-07-04 21:37 | History & Physical Report ---
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 (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) shunt status: (5) Vaginal bleeding: (6) Anemia: Plan The patient is a 53-year-old female with a past medical history including inability to care for self, catheter associated urine tract infections, abnormal cortisol level, daytime somnolence, adrenal insufficiency, candidal intertrigo, depression, morbid obesity, history of DVT, hypothyroidism, CULTURE MEDIA LABORATORY ASSISTANT shunt status, seizure disorder, CHF, GERD without esophagitis, history of epilepsy, ambulatory dysfunction, and chronic lower extremity swelling.The patient is sent to the emergency department at [facility] from [facility] in [place], after being discharged from [facility] to that facility yesterday. Family noted that the patient was significantly weaker today, while she is presently being treated for urinary tract infection with Keflex, and they felt that she needed an evaluation to also further assess issues with slurred speech and lethargy. The patient has a history of a stroke 4 weeks ago, with residual left hemiparesis, has a chronic indwelling Kelly catheter, and has had an issue with ongoing anemia, likely secondary to vaginal bleeding. They report that she presently is on fluconazole for a yeast urinary tract infection. CT scan of head shows a right-sided craniotomy, with ventriculostomy catheter terminating near the foramen of Benitez. From the ED patient received normal saline 1 L fluid bolus. She was then referred for evaluation and treatment to the [facility] hospitalist service. #Anemia- Family notes issues with ongoing vaginal bleeding, which at this point have not been evaluated Hemoglobin 7.6, reportedly was in the same value last year, but records not available yet at this time, and we are attempting to get copies of records from previous hospitalizations It sounds per history that there was an attempt to evaluate in the past, however, patient was reluctant to do so at the time, but is more likely to now. Residual left hemiparesis secondary to CVA reportedly about 4 weeks ago- Attempting to get records from [facility], where treatment was evidently undertaken. CT scan of head does show a right sided craniotomy with ventriculostomy catheter terminating near the foramen of Benitez. Will consult neurology Continuing aspirin and clopidogrel at this time, until determination made regarding vaginal bleeding Hypernatremia/dehydration- Sodium 149, with serum osmolality 302 Placing on D5 half-normal saline plus KCl 20 mill equivalent to 80 mL/h x 1 L, and reassess laboratories in the a.m. Left hemiparesis- Unclear PT/OT assessments have been done in the past, will need to assess once records are obtained Urinary tract infection- Reportedly on fluconazole until 07/08 Again as above will need to review records and assess for appropriate treatment Reportedly had a bacterial infection as well. Had reportedly filled a prescription for cefdinir yesterday, but had it only for 1 day Placed on cefepime 2 g IV every 12 hours, Will need to follow-up appropriate treatment by reviewing laboratory and other records once they are obtained Seizure disorder- Continuing lacosamide History of Present Illness Chief Complaint: The patient is sent to the emergency department at [facility] from [facility] in [place], after being discharged from [facility] to that facility yesterday. Family noted that the patient was significantly weaker today, while she is presently being treated for urinary tract infection with Keflex, and they felt that she needed an evaluation to also further assess issues with slurred speech and lethargy. The patient has a history of a stroke 4 weeks ago, with residual left hemiparesis, has a chronic indwelling Kelly catheter, and has had an issue with ongoing anemia, likely secondary to vaginal bleeding. They report that she presently is on fluconazole for a yeast urinary tract infection. CT scan of head shows a right-sided craniotomy, with ventriculostomy catheter terminating near the foramen of Benitez. From the ED patient received normal saline 1 L fluid bolus. She was then referred for evaluation and treatment to the [facility] hospitalist service. 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 Family noted that the patient was significantly weaker today, while she is presently being treated for urinary tract infection with Keflex, and they felt that she needed an evaluation to also further assess issues with slurred speech and lethargy. The patient has a history of a stroke 4 weeks ago, with residual left hemiparesis, has a chronic indwelling Kelly catheter, and has had an issue with ongoing anemia, likely secondary to vaginal bleeding. They report that she presently is on fluconazole for a yeast urinary tract infection. CT scan of head shows a right-sided craniotomy, with ventriculostomy catheter terminating near the foramen of Benitez. From the ED patient received normal saline 1 L fluid bolus. She was then referred for evaluation and treatment to the [facility] Hospitalist service. Allergies Allergy/AdvReac Type Severity Reaction Status Date / Time Penicillins Allergy Unknown ON Verified 07/04/24 19:33 [facility] MED LIST phenytoin [From Dilantin] AdvReac Intermediate REALLY BAD Verified 07/04/24 19:33 [facility] Home Medications Medication Instructions Recorded Confirmed Type magnesium hydroxide 400 mg/5 mL 2,400 mg PO DAILY PRN Constipation 05/03/23 07/04/24 History oral suspension (Milk of Magnesia) acetaminophen 325 mg tablet 650 mg (2 x 325 mg) PO Q6H PRN 06/24/23 07/04/24 Rx (Tylenol) PAIN/FEVER #30 tabs aspirin 81 mg chewable tablet 81 mg PO DAILY #90 tabs 06/24/23 07/04/24 Rx bisacodyl 10 mg rectal suppository 10 mg TN DAILY PRN Constipation #5 06/24/23 07/04/24 Rx (Dulcolax (bisacodyl)) ea folic acid 1 mg tablet 1 mg PO DAILY #30 tabs 06/24/23 07/04/24 Rx lacosamide 100 mg tablet 100 mg PO Q12H #60 tabs 06/24/23 07/04/24 Rx sodium phosphates 19 gram-7 118 ml TN DAILY PRN Constipation 06/24/23 07/04/24 Rx gram/118 mL enema (Enema) #1 mL albuterol sulfate 90 mcg/actuation 2 puff inhalation Q6H PRN Wheezing 07/04/24 07/04/24 History aerosol inhaler atorvastatin 80 mg tablet 80 mg PO PM 07/04/24 07/04/24 History cephalexin 500 mg tablet 500 mg PO Q12H 07/04/24 07/04/24 History clopidogrel 75 mg tablet (Plavix) 75 mg PO DAILY 07/04/24 07/04/24 History famotidine 20 mg tablet (Pepcid) 20 mg PO DAILY 07/04/24 07/04/24 History fluconazole 150 mg tablet 150 mg PO QPM 07/04/24 07/04/24 History fluoxetine 10 mg tablet 30 mg PO DAILY 07/04/24 07/04/24 History fluticasone fur. 100 mcg-umeclid 1 inh inhalation DAILY 07/04/24 07/04/24 History 62.5 mcg-vilant 25 mcg inhalat.powder (Trelegy Ellipta) hydroxyzine HCl 25 mg tablet 25 mg PO Q6H PRN Itching 07/04/24 07/04/24 History levothyroxine 25 mcg tablet 25 mcg PO DAILYBB 07/04/24 07/04/24 History magnesium oxide 400 mg (241.3 mg 400 mg PO QAM 07/04/24 07/04/24 History magnesium) tablet menthol 0.44 %-zinc oxide 20.6 % 1 applic topical TID 07/04/24 07/04/24 History topical ointment (Calmoseptine) nystatin 100,000 unit/gram topical 1 applic topical BID 07/04/24 07/04/24 History powder (Nystop) oxybutynin chloride 15 mg 15 mg PO DAILY 07/04/24 07/04/24 History tablet,extended release 24 hr potassium chloride 10 mEq 10 meq PO DAILY 07/04/24 07/04/24 History capsule,extended release sennosides 8.6 mg tablet (Senokot) 17.2 mg PO Q24H PRN Constipation 07/04/24 07/04/24 History Past Med/Surg History Problem List (Updated 07/05/24 @ 02:28 by Cal Braga MD) Anemia Vaginal bleeding Hemiparesis affecting left side as late effect of cerebrovascular accident Acute dehydration (Acute) Acute hypernatremia (Acute) Expiratory wheezing Unable to care for self Low grade fever Catheter-associated urinary tract infection Abnormal urinalysis Left knee pain Abnormal cortisol level Daytime somnolence Adrenal insufficiency Dysphagia Candidal intertrigo UTI (urinary tract infection) due to Enterococcus Abnormal urine findings Abnormal brain MRI Acute severe vertigo Morbid obesity with BMI of 45.0-49.9, adult Depression Acute metabolic encephalopathy History of DVT (deep vein thrombosis) Hypothyroidism 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 MEDIA LABORATORY ASSISTANT (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) shunt status Seizure disorder (Acute) Congestive heart failure 02/27/23 Echo EF 55-60% technically limited study Sepsis (Acute) Cellulitis of right leg (Acute) Hypomagnesemia (Acute) Hypokalemia (Acute) Normocytic anemia GERD without esophagitis Generalized weakness (Acute) Bilateral leg edema Shortness of breath Ambulatory dysfunction (Acute) History of CHF (congestive heart failure) (Acute) History of epilepsy (Acute) Leg swelling (Acute) Medical History History of DVT (deep vein thrombosis) GERD (gastroesophageal reflux disease) History of benign brain tumor Seizure disorder Congestive heart failure 02/27/23 Echo EF 55-60% technically limited study Hypothyroidism Surgical History CULTURE MEDIA LABORATORY ASSISTANT (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) shunt status Social History Smoking Status: Unknown if ever smoked Second Hand Exposure: No; Do You Dip or Chew Tobacco: No; Hx Alcohol Use: No Hx Substance Use: No Preferred Language: Wolof Communication Ability: Effective Director Operations Required: No Beliefs That Will Affect Care: None Current Living Situation: Rehab Feels Safe at Home: Yes Assistive Devices: Walker and Wheelchair Review of Systems Review of Systems: The patient denies chest pain, palpitations, shortness of breath, dyspnea on exertion, cough, sore throat, fevers, chills, sweats, nausea, vomiting, diarrhea , constipation, abdominal pain, pelvic pain, blood in urine or stool, dysuria, urinary frequency or urgency, lightheadedness, loss of consciousness, rash, abnormal bruising or bleeding, Right sided weakness, generalized arthralgias or myalgias, back or neck pain, or night sweats. The review of systems is otherwise negative other than for that already noted above, and at least 10 systems have been reviewed. Physical Exam Physical Exam: The patient is awake, alert and oriented 3, well developed and well nourished, normocephalic and atraumatic, lying in bed and in no acute distress. HEENT--PERRL, EOMI, mucous membranes and oropharynx mildly dry. Neck--supple. No JVD. No bruits. Thyroid normal, trachea midline, no adenopathy. Heart--normal S1 and S2. No murmurs, rubs or gallops. Lungs--clear bilaterally, no respiratory distress, no accessory muscle use. Abdomen--normal bowel sounds and soft. Nontender. Nondistended, no hernias or masses, no organomegaly. Extremities--no cyanosis or clubbing. No edema. There are good distal pulses b/l. Dermatologic--normal skin turgor, normal color, no abnormal lymph nodes, no rash. Neurologic--left hemiparesis Rheumatologic--normal range of motion. Psychiatric--normal affect. Results & Data Results & Data Vital Signs (Past 12 Hours) Vital Signs Temp Pulse Pulse Resp BP BP Pulse Ox 07/04/24 18:47 80 92 07/04/24 18:47 37.1 C 80 18 147/74 H 94 07/04/24 18:47 92 07/04/24 18:47 37.1 C 80 20 147/74 H 94 07/04/24 18:41 83 O2 Del Method O2 Flow Rate 07/04/24 18:47 Room Air 07/04/24 18:47 Room Air 07/04/24 18:47 0 07/04/24 18:47 Room Air 07/04/24 18:41 Laboratory Results Laboratory Results WBC 5.67 K/ul (4.8-10.8) 07/04/24 18:51 RBC 3.58 M/uL (4.20-5.40) L 07/04/24 18:51 Hgb 7.6 g/dl (12.0-16.0) L 07/04/24 18:51 Hct 27.2 % (37.0-47.0) L 07/04/24 18:51 MCV 76.0 fL (80.0-100.0) L 07/04/24 18:51 MCH 21.2 pg (25.0-34.0) L 07/04/24 18:51 MCHC 27.9 g/dL (32.0-36.0) L 07/04/24 18:51 RDW Std Deviation 49.6 fL (36.4-46.3) H 07/04/24 18:51 RDW Coeff of Neo 18.0 % (11.5-14.5) H 07/04/24 18:51 Plt Count 320 K/uL (130-400) 07/04/24 18:51 MPV 11.1 fL (9.4-12.4) 07/04/24 18:51 Immature Gran % (Auto) 0.2 % 07/04/24 18:51 Neut % (Auto) 57.4 % 07/04/24 18:51 Lymph % (Auto) 27.7 % 07/04/24 18:51 [place] % (Auto) 6.9 % 07/04/24 18:51 Eos % (Auto) 7.6 % 07/04/24 18:51 Baso % (Auto) 0.2 % 07/04/24 18:51 Neut # (Auto) 3.26 K/uL (1.40-6.50) 07/04/24 18:51 Lymph # (Auto) 1.57 K/uL (1.20-3.40) 07/04/24 18:51 Canadian # (Auto) 0.39 K/uL (0.11-0.59) 07/04/24 18:51 Eos # (Auto) 0.43 K/uL (0.00-0.50) 07/04/24 18:51 Baso # (Auto) 0.01 K/uL (0.00-0.20) 07/04/24 18:51 Immature Gran # (Auto) 0.01 K/uL (0.01-0.20) 07/04/24 18:51 Hypochromasia Present 07/04/24 18:51 Sodium 149 mmol/L (136-145) H 07/04/24 18:51 Potassium 3.6 mmol/L (3.5-5.1) 07/04/24 18:51 Chloride 113 mmol/L (98-107) H 07/04/24 18:51 Carbon Dioxide 26 mmol/L (21-32) 07/04/24 18:51 Anion Gap 10 (3-11) 07/04/24 18:51 BUN 9 mg/dl (6-23) 07/04/24 18:51 Creatinine 0.57 mg/dl (0.6-1.2) L 07/04/24 18:51 Est Cr Clr Drug Dosing 125.5 ml/min 07/04/24 18:51 eGFR 107.25 07/04/24 18:51 BUN/Creatinine Ratio 15.8 (10-20) 07/04/24 18:51 Glucose 104 mg/dl (70-99(Fasting)) H 07/04/24 18:51 Osmolality 305 mOsm/kg (280-300) H 07/04/24 18:52 Calcium 8.3 mg/dl (8.6-10.3) L 07/04/24 18:51 Total Bilirubin 0.4 mg/dl (0.2-1.0) 07/04/24 18:51 AST 14 U/L (13-39) 07/04/24 18:51 ALT 13 U/L (7-52) 07/04/24 18:51 Alkaline Phosphatase 61 U/L (34-104) 07/04/24 18:51 Total Protein 6.4 gm/dl (6.0-8.3) 07/04/24 18:51 Albumin 3.1 gm/dl (3.4-5.0) L 07/04/24 18:51 Globulin 3.3 gm/dl (2.5-4.0) 07/04/24 18:51 Albumin/Globulin Ratio 0.9 (0.9-2) 07/04/24 18:51 Lipase 21 U/L (11-82) 07/04/24 18:51 Urine Color Dark Yellow 07/04/24 22:04 Urine Appearance Cloudy (Clear) A 07/04/24 22:04 Urine pH 5.5 (4.5-7.5) 07/04/24 22:04 Ur Specific [place] 1.027 (1.000-1.030) 07/04/24 22:04 Urine Protein 2+ (Negative) H 07/04/24 22:04 Urine Glucose (UA) Negative (Negative) 07/04/24 22:04 Urine Ketones Trace (Negative) H 07/04/24 22:04 Urine Blood 2+ (Negative) H 07/04/24 22:04 Urine Nitrite Negative (Negative) 07/04/24 22:04 Urine Bilirubin Negative (Negative) 07/04/24 22:04 Urine Urobilinogen Negative (Negative) 07/04/24 22:04 Ur Leukocyte Esterase 3+ (Negative) H 07/04/24 22:04 Urine WBC (Auto) >50 /hpf (0-5) H 07/04/24 22:04 Urine RBC (Auto) >20 /hpf (0-2) H 07/04/24 22:04 U Hyaline Cast (Auto) 0-2 /lpf (0-2) 07/04/24 22:04 U Epithel Cells (Auto) 0-2 /hpf (0-2) 07/04/24 22:04 Urine Bacteria (Auto) None Seen (None Seen) 07/04/24 22:04 Urine Yeast Present (None Prsent) A 07/04/24 22:04 Urine Osmolality 756 mOsm/kg (500-800) 07/04/24 22:04 Ur Random Sodium 143 mmol/L 07/04/24 22:04 Nasal Screen MRSA (PCR) Negative (Negative) 07/04/24 22:00 Adenovirus (PCR) Not Detected (NotDetected) 07/04/24 20:58 B. pertussis DNA (PCR) Not Detected (NotDetected) 07/04/24 20:58 B.parapertussis DNA PCR Not Detected (NotDetected) 07/04/24 20:58 C. pneumoniae DNA (PCR) Not Detected (NotDetected) 07/04/24 20:58 Coronavirus OC43 (PCR) Not Detected (NotDetected) 07/04/24 20:58 Coronavirus HKU1 (PCR) Not Detected (NotDetected) 07/04/24 20:58 Coronavirus 229E (PCR) Not Detected (NotDetected) 07/04/24 20:58 SARS-CoV-2 (PCR) Not Detected (NotDetected) 07/04/24 20:58 Coronavirus NL63 (PCR) Not Detected (NotDetected) 07/04/24 20:58 Human Metapneumovir PCR Not Detected (NotDetected) 07/04/24 20:58 Influenza Type A (PCR) Not Detected (NotDetected) 07/04/24 20:58 Influenza Type B (PCR) Not Detected (NotDetected) 07/04/24 20:58 M. pneumoniae (PCR) Not Detected (NotDetected) 07/04/24 20:58 Parainfluenza 1 (PCR) Not Detected (NotDetected) 07/04/24 20:58 Parainfluenza 2 (PCR) Not Detected (NotDetected) 07/04/24 20:58 Parainfluenza 3 (PCR) Not Detected (NotDetected) 07/04/24 20:58 Parainfluenza 4 (PCR) Not Detected (NotDetected) 07/04/24 20:58 RSV (PCR) Not Detected (NotDetected) 07/04/24 20:58 Entero/Rhino (PCR) Not Detected (NotDetected) 07/04/24 20:58 Blood Type A Positive 07/04/24 19:56 Antibody Screen NEGATIVE 07/04/24 19:56 Impressions Chest X-Ray 07/04/24 18:47 Exam(s): XR CXR 1 VIEW EXAM: XR Chest, 1 View CLINICAL HISTORY: Reason for exam: weak. TECHNIQUE: Frontal view of the chest. COMPARISON: May 03, 2023 FINDINGS: Lungs: There is soft tissue artifact from large body habitus. No acute focal infiltrate or consolidation is seen within the lungs. Pleural space: Unremarkable. No pneumothorax. Heart: Unremarkable. No cardiomegaly. Mediastinum: Unremarkable. Normal mediastinal contour. Bones/joints: Unremarkable. No acute fracture. Tubes, lines and devices: There is CULTURE MEDIA LABORATORY ASSISTANT shunt tubing running over the left side of the torso, unchanged. Upper abdomen: Unremarkable as visualized. No pneumoperitoneum under the diaphragm. IMPRESSION: There is soft tissue artifact from large body habitus. No acute focal infiltrate or consolidation is seen within the lungs. Electronically signed by: Bret Leyva MD 07/04/24 22:[address] 07/04/24 18:47 CT head without contrast History: Lethargic Comparison: 05/08/2023 Technique: Using multidetector thin collimation helical acquisition technique, axial, coronal and sagittal CT images from the skull base to the vertex were obtained without intravenous contrast. Dose reduction techniques were achieved by using automatic exposure control and/or adjustment of mA and/or kV according to patient size and/or use of iterative reconstruction technique. Findings: No acute hemorrhage or acute infarct. Stable moderate dilatation of the lateral ventricles. Minimal left midline shift remains stable. Encephalomalacia of the right temporal lobe and right basal ganglia, unchanged. Persistent right frontal extra-axial low density fluid collection remains unchanged. Stable 1.7 cm left lateral calcified extra-axial lesion, which may represent a bony exostosis, given the proximity to the craniotomy, versus a meningioma. The paranasal sinuses and left mastoid air cells are clear. There are few opacified right mastoid air cells, unchanged. Right-sided craniotomy again noted. The left frontal approach ventriculostomy catheter terminates near the foramen of [place]ro. Impression: No acute intracranial pathology or significant change. Chronic and postoperative changes again noted. Electronically signed by Jose Clemens 07-04-2024 7:24 PM Code Status & VTE Plan Code Status Full code PG Care Time/CCT Total # of Minutes Spent Total Time Spent with Patient: Total time spent is greater than 50% in coordination of care (as documented) at patient's floor/unit and/or counseling patient: Coding Level of Care Code 36719 INT INP/OBS CARE 3/75MIN Diagnoses Hemiparesis affecting left side as late effect of cerebrovascular accident I69.354 Acute hypernatremia E87.0 Catheter-associated urinary tract infection T83.511A; N39.0 CULTURE MEDIA LABORATORY ASSISTANT (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) shunt status Z98.2 Vaginal bleeding N93.9 Anemia D64.9
[2024-07-04 22:02] LABS: Adenovirus PCR Not Detected (NotDetected); Bordetella parapertussis PCR Not Detected (NotDetected); Bordetella pertussis PCR Not Detected (NotDetected); Chlamydia pneumoniae PCR Not Detected (NotDetected); Coronavirus 229E PCR Not Detected (NotDetected); Coronavirus CoV-2 (COVID19)PCR Not Detected (NotDetected); Coronavirus HKU1 PCR Not Detected (NotDetected); Coronavirus NL63 PCR Not Detected (NotDetected); Coronavirus OC43PCR Not Detected (NotDetected); Human Metapneumovirus PCR Not Detected (NotDetected); Influenza A PCR Not Detected (NotDetected); Influenza B PCR Not Detected (NotDetected); Mycoplasma pneumoniae PCR Not Detected (NotDetected); Parainfluenza Virus 1 PCR Not Detected (NotDetected); Parainfluenza Virus 2 PCR Not Detected (NotDetected); Parainfluenza Virus 3 PCR Not Detected (NotDetected); Parainfluenza Virus 4 PCR Not Detected (NotDetected); Respiratory Syncytial VirusPCR Not Detected (NotDetected); Rhinovirus/Enterovirus PCR Not Detected (NotDetected)
[2024-07-04 22:27] LABS: Appearance Urine Cloudy (Clear); Bacteria Urine Automated None Seen (None Seen); Bilirubin Urine Negative (Negative); Blood Urine 2+ (Negative); Cast Urine Automated 0-2 /lpf (0-2); Color Urine Dark Yellow; Epithelial Cell Urine Auto 0-2 /hpf (0-2); Glucose Urine UA Negative (Negative); Ketones Urine Trace (Negative); Leukocyte Esterase Urine 3+ (Negative); Nitrite Urine Negative (Negative); Protein Urine 2+ (Negative); RBC Urine Automated >20 /hpf (0-2); Specific Gravity Urine 1.027 (1.000-1.030); Urobilinogen Urine Negative (Negative); WBC Urine Automated >50 /hpf (0-5); pH Urine 5.5 (4.5-7.5)
[2024-07-04] MEDS: CEFEPIME 2000MG 2,000 MG/20 ML SYR IV STA (22:29)
[2024-07-04] MEDS: D5W AND 1/2NSS + 20MEQ KCL 20 MEQ/1,000 ML BAG IV SCH (22:34)
--- NOTE | 2024-07-04 22:39 | XRay Report ---
Exam(s): XR CXR 1 VIEW EXAM: XR Chest, 1 View CLINICAL HISTORY: Reason for exam: weak. TECHNIQUE: Frontal view of the chest. COMPARISON: May 03, 2023 FINDINGS: Lungs: There is soft tissue artifact from large body habitus. No acute focal infiltrate or consolidation is seen within the lungs. Pleural space: Unremarkable. No pneumothorax. Heart: Unremarkable. No cardiomegaly. Mediastinum: Unremarkable. Normal mediastinal contour. Bones/joints: Unremarkable. No acute fracture. Tubes, lines and devices: There is STRAW BOSS shunt tubing running over the left side of the torso, unchanged. Upper abdomen: Unremarkable as visualized. No pneumoperitoneum under the diaphragm. IMPRESSION: There is soft tissue artifact from large body habitus. No acute focal infiltrate or consolidation is seen within the lungs. Electronically signed by: Bret Leyva MD 07/04/24 22:38 PM
[2024-07-04] MEDS ORDERED: MAGNESIUM HYDROXIDE SUSP 30 ML UDC PO PRN (23:29)
[2024-07-04] MEDS ORDERED: SOD PHOSPHATE/SOD BIPHOSPHATE ENEMA 132 ML BTL PR PRN (23:29)
[2024-07-04] MEDS ORDERED: ACETAMINOPHEN 325 MG TAB PO PRN (23:29)
[2024-07-04] MEDS ORDERED: bisacodyL 10 MG SUPP PR PRN (23:29)
[2024-07-05] MEDS: LACOSAMIDE 100 MG in SODIUM CHLORIDE 0.9% 50 ML IV ONE (00:35)
[2024-07-05] MEDS: LACOSAMIDE 50 MG TABLET PO SCH ×2 (00:40→13:24)
[2024-07-05 08:23] LABS: Basophils # (auto) 0.02 K/uL (0.00-0.20); Basophils % (auto) 0.4 %; Eosinophils # (auto) 0.47 K/uL (0.00-0.50); Hematocrit (blood only) 26.3 % (37.0-47.0); Hemoglobin 7.2 g/dl (12.0-16.0); Immature Granulocytes # (auto) 0.01 K/uL (0.01-0.20); Immature Granulocytes % (auto) 0.2 %; Lymphocytes # (auto) 1.28 K/uL (1.20-3.40); Lymphocytes % (auto) 27.4 %; Mean Corpuscular Hemoglobin 21.1 pg (25.0-34.0); Mean Corpuscular Hgb Conc 27.4 g/dL (32.0-36.0); Mean Corpuscular Volume 76.9 fL (80.0-100.0); Mean Platelet Volume 11.5 fL (9.4-12.4); Monocytes # (auto) 0.29 K/uL (0.11-0.59); Monocytes % (auto) 6.2 %; Neutrophils # (auto) 2.61 K/uL (1.40-6.50); Neutrophils % (auto) 55.8 %; Platelet Count 278 K/uL (130-400); RDW Coefficient of Variation 17.9 % (11.5-14.5); RDW Standard Deviation 49.9 fL (36.4-46.3); Red Blood Count 3.42 M/uL (4.20-5.40); White Blood Count 4.68 K/ul (4.8-10.8)
[2024-07-05 08:24] LABS: Calcium 7.5 mg/dl (8.6-10.3); Magnesium 1.7 mg/dl (1.7-2.4); Potassium 3.9 mmol/L (3.5-5.1)
[2024-07-05 08:29] LABS: BUN Creatinine Ratio 17.4 (10-20); Creatinine Clr Calc Pharmacy 151.5 ml/min
[2024-07-05 08:44] LABS: Thyroid Stimulating Hormone 2.104 uIu/ml (0.300-4.500)
[2024-07-05 08:46] LABS: T4 Free Thyroxine 0.73 ng/dl (0.61-1.60)
[2024-07-05 08:57] LABS: Partial Thromboplastin Ratio 0.9; Partial Thromboplastin Time 25 Seconds (21-31); Prothrombin Time 10.9 Seconds (9.0-12.0)
[2024-07-05 09:10] LABS: Hypochromasia Present; Polychromasia 1+
[2024-07-05] MEDS: CEFEPIME 2000MG 2,000 MG/20 ML SYR IV SCH (09:11)
[2024-07-05] MEDS: CLOPIDOGREL BISULFATE 75 MG TAB PO SCH (09:54)
[2024-07-05] MEDS: FOLIC ACID 1 MG TAB PO SCH (09:54)
[2024-07-05] MEDS: ASPIRIN 81 MG ECTAB PO SCH (09:54)
[2024-07-05] MEDS: FAMOTIDINE 20 MG TAB PO SCH (09:54)
[2024-07-05] MEDS: FLUoxetine HCL 10 MG CAP PO SCH (09:54)
[2024-07-05] MEDS: LEVOTHYROXINE SODIUM 25 MCG TABLET PO SCH (09:54)
[2024-07-05] MEDS: FLUTICASONE FUROATE 100MCG 14 PUFFS/INHALER INH SCH (09:54)
[2024-07-05] MEDS: OXYBUTYNIN CHLORIDE XL 5 MG TABCR PO SCH (09:55)
[2024-07-05] MEDS: guaiFENesin 600 MG TABCR PO SCH (09:55)
[2024-07-05] MEDS: UMECLIDINIUM/VILANTEROL 62.5/25MCG 7 PUFFS/INHALER INH SCH (09:55)
[2024-07-05] MEDS: MAGNESIUM OXIDE 400 MG TAB PO SCH (09:55)
[2024-07-05] MEDS: POTASSIUM CHLORIDE 10 MEQ TABCR PO SCH (09:55)
[2024-07-05] MEDS: MENTHOL-ZINC OXIDE 360 APPLN/120 GM TUBE EXT SCH (10:15)
[2024-07-05 12:00] LABS: Ferritin 3.2 ng/ml (8-388)
--- NOTE | 2024-07-05 12:01 | Hospitalist Progress Note ---
Date of Service July 05, 2024 Assessment & Plan (1) Hemiparesis affecting left side as late effect of cerebrovascular accident: (2) Acute metabolic encephalopathy: (3) Acute hypernatremia: (4) Catheter-associated urinary tract infection: (5) Iron deficiency anemia: (6) LAY OUT DRAFTER (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) shunt status: (7) Vaginal bleeding: (8) Anemia: (9) Dysphagia: (10) History of DVT (deep vein thrombosis): (11) Hypothyroidism: (12) Seizure disorder: (13) History of CHF (congestive heart failure): (14) History of meningioma: (15) History of astrocytoma of brain: Plan 53-year-old female with very complex PMH including 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 Pt sent from [facility] in [place] to [facility] due to fatigue, weakness, lethargy, slurred speech (by report), and confusion. #acute metabolic encephalopathy - * hypernatremia, recent UTI, recent stroke, recent change in her living situation (switched from [facility] in [place] to [facility] in [place]), etc all could be playing roles * during her 2023 admission to [facility] she had frequent waxing/waning of her mental status * I cannot rule out recent seizures with subsequent altered MS but no seizures have been reported * treat the recent UTI; treat the hypernatremia * consider MRI brain (LAY OUT DRAFTER shunt is compatible) * reinforce healthy sleep-wake cycle * check ammonia level am * consider EEG #Anemia - 2nd to severe iron deficiency - * ferritin <5 * no overt GI bleeding; ?vaginal bleeding/heavy menses? (is she post-menopause? could check LH/FSH) * during 2023 hospitalization she was given 4 doses of IV venofer * during same hospitalization in 2023 heme occult was negative * will repeat IV venofer here - start 300mg IV daily x 3 days at least * check B12/folate am to be complete * likely to need a unit of blood soon given current Hb of just over 8 * I did obtain blood consent from pt's sister Selin this evening #hypernatremia - * cont hypotonic fluids * repeat BMP am * correct over 48 hours - uncertain how long she has been hypernatremic #recent right-sided CRIMINAL RESEARCH SPECIALIST territory stroke - * cont asa/plavix for secondary prevention #recurrent UTIs - * started keflex 500mg BID on 06/27; thus, had received 8 days of such prior to presentation; now on IV cefepime with urine cx here pending; if urine cx is negative will stop cefepime on 07/06 * started diflucan 150mg daily on 07/02; thus, day #4 of such; 06/30 urine cx was obtained from [facility] -- 15,000 CFU of nixon albicans only * need to find out when her aguilar was last exchanged; typically the Rx of candiduria is exchange of the chronic aguilar; Rx with azoles is usually not needed but reasonable to continue Rx for total 7 days since she has already been started on such * sister Selin reports frequent UTIs while at the SNF in [place] over the last year; consider methanamine prophylaxis (we had prescribed such in 2023) #Seizure d/o - * continue lacosamide BID * could consider EEG if altered MS persists #h/o DVT, IVC filter status - * Eliquis was stopped during recent hospital stay at [facility] as her CRIMINAL RESEARCH SPECIALIST stroke was thought to be thrombotic and her DVTs were several years ago * she is at high risk of DVT given bed-bound status * while here - if no overt bleeding - start lovenox or heparin SC for DVT proph #chronic aguilar catheter usage - * contact SNF in [place] to see when aguilar was last exchanged #h/o right-sided astrocytoma s/p resection years ago with subsequent encephalomalacia #LAY OUT DRAFTER shunt status #hypothyroidism - * TFTs wnl * cont synthroid #functional paraplegia #morbid obesity - BMI ~40 of note - I spent a total of 85 minutes on care activities today between extensive records review of [facility] records & SNF records; 2 visits to bedside; update given to sister Selin; blood consent process completed and form signed; discussing care with nursing; etc. will need Pt/Ot while here Admission and Anticipated Discharge Date Admission Date: July 04, 2024 Subjective 2 visits to pt's room today first visit was on rounds saw patient around mid-day at lunch-time she was feeding herself with her right hand she was awake and alert - oriented to person, place (hospital) but not the town (thought she was in [place]), and amazingly the year & month she denied any complaints of pain denied dyspnea per staff she was up a portion of the night, calling out to "I want to go home" this am she was refusing meds during med pass she ultimately calmed down and allowed AM labs to be drawn 2nd visit was about 630pm pt's sister Selin was at bedside Selin reported that Cassy has had a chronic aguilar for about 9 months Cassy had encouraged the SNF in [place] to place one due to issues with inc ontinence of bowel/bladder & skin issues patient was then admitted to [facility] from 06/13 to 06/18 she had suffered a right-sided CRIMINAL RESEARCH SPECIALIST territory stroke Eliquis was stopped, and plavix/aspirin were recommended on 06/18 she did not return to the previous SNF in [place] instead she transferred to [facility] in [place] Selin has been very satisfied with the care Cassy is receiving at [facility] Selin recounts that over the last 8-9 days she has been treated for UTI records show she had been receiving Keflex 500mg BID since 06/27 additionally she grew out 15,000 CFU of nixon albicans from urine cx dated 06/30 she started on dilfucan 150mg daily on 07/02 Selin is not certain when Cassy's aguilar was last exchanged after transfer to [facility] Cassy's mental status had been stable per Selin however, within the last few days/last week she has had abrupt changes in her mental status and is now much worse in comparison to baseline we discussed delirium in detail during this 2nd visit we also discussed Cassy's iron deficiency anemia there has been concern about menorrhagia (she still has menses??) no rectal bleeding by report Selin did confirm that Cassy's eating habits remain very restricted and limited; she tends to be selective in what she will eat Review of Systems Review of Systems: denies pain in any location denies dyspnea Physical Exam Physical Exam: gen - lying comfortably in bed, NAD, smiling/conversant; oriented to person/place/time but not the town neck - no obvious JVD mouth - MM dry heart - RRR, s1 s2, no murmur lungs - CTA b/l abd - soft NT ND BS+ ext - trace edema b/l feet/shins; pulses b/l feet 2+ skin - venous stasis changes b/l legs neuro - contracture of left hand; 0/5 strength LUE; left ankle dorsiflexion intact, but unable to plantar; right ankle/foot - able to dorsiflex and plantarflex; right arm strength 4-5/5; subtle left-sided lower facial droop Results & Data Results & Data Vital Signs (Past 12 Hours) Vital Signs Temp Pulse Pulse Resp BP Pulse Ox O2 Del Method 07/05/24 10:28 36.4 C L 80 20 128/96 100 Room Air 07/05/24 08:45 Room Air 07/05/24 07:48 36.4 C L 63 19 140/78 99 Room Air 07/05/24 00:58 79 07/05/24 00:38 73 172/78 H 07/05/24 00:05 36.6 C 82 20 167/102 H 96 Room Air Laboratory Results Laboratory Results - last 24 hr 07/04/24 07/04/24 07/04/24 19:56 20:58 22:00 WBC RBC Hgb Hct MCV MCH MCHC RDW Std Deviation RDW Coeff of Neo Plt Count MPV Immature Gran % (Auto) Neut % (Auto) Lymph % (Auto) [place] % (Auto) Eos % (Auto) Baso % (Auto) Neut # (Auto) Lymph # (Auto) [place] # (Auto) Eos # (Auto) Baso # (Auto) Immature Gran # (Auto) Polychromasia Hypochromasia PT INR APTT PTT Ratio Sodium Potassium Chloride Carbon Dioxide Anion Gap BUN Creatinine Est Cr Clr Drug Dosing eGFR BUN/Creatinine Ratio Glucose Calcium Magnesium Iron TIBC Transferrin Transferrin % Sat Ferritin TSH Free T4 Urine Color Urine Appearance Urine pH Ur Specific [place] Urine Protein Urine Glucose (UA) Urine Ketones Urine Blood Urine Nitrite Urine Bilirubin Urine Urobilinogen Ur Leukocyte Esterase Urine WBC (Auto) Urine RBC (Auto) U Hyaline Cast (Auto) U Epithel Cells (Auto) Urine Bacteria (Auto) Urine Yeast Urine Osmolality Ur Random Sodium Nasal Screen MRSA (PCR) Negative Adenovirus (PCR) Not Detected B. pertussis DNA (PCR) Not Detected B.parapertussis DNA PCR Not Detected C. pneumoniae DNA (PCR) Not Detected Coronavirus OC43 (PCR) Not Detected Coronavirus HKU1 (PCR) Not Detected Coronavirus 229E (PCR) Not Detected SARS-CoV-2 (PCR) Not Detected Coronavirus NL63 (PCR) Not Detected Human Metapneumovir PCR Not Detected Influenza Type A (PCR) Not Detected Influenza Type B (PCR) Not Detected M. pneumoniae (PCR) Not Detected Parainfluenza 1 (PCR) Not Detected Parainfluenza 2 (PCR) Not Detected Parainfluenza 3 (PCR) Not Detected Parainfluenza 4 (PCR) Not Detected RSV (PCR) Not Detected Entero/Rhino (PCR) Not Detected Blood Type A Positive Antibody Screen NEGATIVE 07/04/24 07/05/24 22:04 07:55 WBC 4.68 L RBC 3.42 L Hgb 7.2 L Hct 26.3 L MCV 76.9 L MCH 21.1 L MCHC 27.4 L RDW Std Deviation 49.9 H RDW Coeff of Neo 17.9 H Plt Count 278 MPV 11.5 Immature Gran % (Auto) 0.2 Neut % (Auto) 55.8 Lymph % (Auto) 27.4 [place] % (Auto) 6.2 Eos % (Auto) 10.0 Baso % (Auto) 0.4 Neut # (Auto) 2.61 Lymph # (Auto) 1.28 [place] # (Auto) 0.29 Eos # (Auto) 0.47 Baso # (Auto) 0.02 Immature Gran # (Auto) 0.01 Polychromasia 1+ Hypochromasia Present PT 10.9 INR 1.0 APTT 25 PTT Ratio 0.9 Sodium 148 H Potassium 3.9 Chloride 116 H Carbon Dioxide 31 Anion Gap 1 L BUN 8 Creatinine 0.46 L Est Cr Clr Drug Dosing 151.5 eGFR 112.94 BUN/Creatinine Ratio 17.4 Glucose 96 Calcium 7.5 L Magnesium 1.7 Iron 12 L TIBC 291 Transferrin 208 Transferrin % Sat 4 L Ferritin 3.2 L TSH 2.104 Free T4 0.73 Urine Color Dark Yellow Urine Appearance Cloudy A Urine pH 5.5 Ur Specific [place] 1.027 Urine Protein 2+ H Urine Glucose (UA) Negative Urine Ketones Trace H Urine Blood 2+ H Urine Nitrite Negative Urine Bilirubin Negative Urine Urobilinogen Negative Ur Leukocyte Esterase 3+ H Urine WBC (Auto) >50 H Urine RBC (Auto) >20 H U Hyaline Cast (Auto) 0-2 U Epithel Cells (Auto) 0-2 Urine Bacteria (Auto) None Seen Urine Yeast Present A Urine Osmolality 756 Ur Random Sodium 143 Nasal Screen MRSA (PCR) Adenovirus (PCR) B. pertussis DNA (PCR) B.parapertussis DNA PCR C. pneumoniae DNA (PCR) Coronavirus OC43 (PCR) Coronavirus HKU1 (PCR) Coronavirus 229E (PCR) SARS-CoV-2 (PCR) Coronavirus NL63 (PCR) Human Metapneumovir PCR Influenza Type A (PCR) Influenza Type B (PCR) M. pneumoniae (PCR) Parainfluenza 1 (PCR) Parainfluenza 2 (PCR) Parainfluenza 3 (PCR) Parainfluenza 4 (PCR) RSV (PCR) Entero/Rhino (PCR) Blood Type Antibody Screen Diagnostic Findings Chest X-Ray 07/04/24 18:47 Exam(s): XR CXR 1 VIEW EXAM: XR Chest, 1 View CLINICAL HISTORY: Reason for exam: weak. TECHNIQUE: Frontal view of the chest. COMPARISON: May 03, 2023 FINDINGS: Lungs: There is soft tissue artifact from large body habitus. No acute focal infiltrate or consolidation is seen within the lungs. Pleural space: Unremarkable. No pneumothorax. Heart: Unremarkable. No cardiomegaly. Mediastinum: Unremarkable. Normal mediastinal contour. Bones/joints: Unremarkable. No acute fracture. Tubes, lines and devices: There is LAY OUT DRAFTER shunt tubing running over the left side of the torso, unchanged. Upper abdomen: Unremarkable as visualized. No pneumoperitoneum under the diaphragm. IMPRESSION: There is soft tissue artifact from large body habitus. No acute focal infiltrate or consolidation is seen within the lungs. Electronically signed by: Bret Leyva MD 07/04/24 22:38 PM PG Care Time/CCT Total # of Minutes Spent Total Time Spent with Patient: Total time spent is greater than 50% in coordination of care (as documented) at patient's floor/unit and/or counseling patient: Prolonged Care Time Prolonged Care Time: Yes Total Prolonged Care Time: 85 Coding Level of Care Code 77233 SUB INP/OBS CARE 3/50MIN (25 - SIGNIFICANT, SEPARATELY IDENTIFIABLE ) Diagnoses Hemiparesis affecting left side as late effect of cerebrovascular accident I69.354 Acute metabolic encephalopathy G93.41 Acute hypernatremia E87.0 Catheter-associated urinary tract infection T83.511A; N39.0 Iron deficiency anemia D50.9 LAY OUT DRAFTER (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) shunt status Z98.2 Vaginal bleeding N93.9 Anemia D64.9 Dysphagia R13.10 History of DVT (deep vein thrombosis) Z86.718 Hypothyroidism E03.9 Seizure disorder G40.909 History of CHF (congestive heart failure) Z86.79 History of meningioma Z86.018 History of astrocytoma of brain Z85.841 Additional Codes Prolonged Care Time - Prolonged Care Time: Yes ([id number])
[2024-07-05] MEDS: NYSTATIN POWDER 15GM BTL EXT SCH (13:25)
--- NOTE | 2024-07-05 14:09 | Electrocardiogram Report ---
Test Reason : Blood Pressure : */* mmHG Vent. Rate : 79 BPM Atrial Rate : 79 BPM P-R Int : 142 ms QRS Dur : 76 ms QT Int : 410 ms P-R-T Axes : -3 22 -7 degrees QTcB Int : 470 ms Normal sinus rhythm Normal ECG When compared with ECG of 03-May-2023 04:43, Vent. rate has decreased by 41 bpm T wave inversion no longer evident in Lateral leads Confirmed by Garret De Leon ([id number]) on 07/05/2024 2:09:20 PM Referred By: REFERRED SELF Confirmed By: Garret De Leon
[2024-07-05] MEDS: FEXOFENADINE 60 MG TAB PO ONE (15:04)
[2024-07-05] MEDS: IRON SUCROSE 300 MG in SODIUM CHLORIDE 0.9% 250 ML IV ONE (15:04)
[2024-07-05] MEDS: ALBUT/IPRATROP 3MG/0.5MG NEB 3 ML VIAL NEB PRN (16:08)
[2024-07-05] MEDS: ATORVASTATIN 40 MG TAB PO SCH (21:26)
[2024-07-05] MEDS: FLUCONAZOLE 50 MG TAB PO SCH (21:29)
[2024-07-05] MEDS: FEXOFENADINE 60 MG TAB PO SCH (21:29)
[2024-07-05] MEDS: hydrOXYzine HCl 25 MG TAB PO PRN (21:30)
[2024-07-05] MEDS: D5W AND 1/2NSS 1,000 ML IV SCH (22:45)
--- NOTE | 2024-07-06 12:03 | Hospitalist Progress Note ---
Date of Service July 06, 2024 Assessment & Plan (1) Hemiparesis affecting left side as late effect of cerebrovascular accident: (2) Acute metabolic encephalopathy: (3) Acute hypernatremia: (4) Catheter-associated urinary tract infection: (5) Iron deficiency anemia: (6) LUNCHEONETTE MANAGER (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) shunt status: (7) Vaginal bleeding: (8) Anemia: (9) Dysphagia: (10) History of DVT (deep vein thrombosis): (11) Hypothyroidism: (12) Seizure disorder: (13) History of CHF (congestive heart failure): (14) History of meningioma: (15) History of astrocytoma of brain: Plan 53-year-old female with very complex PMH including 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 Pt sent from [facility] in [place] to [facility] due to fatigue, weakness, lethargy, slurred speech (by report), and confusion. #acute metabolic encephalopathy - * hypernatremia, recent UTI, recent stroke, recent change in her living situation (switched from [facility] in [place] to [facility] in [place]), etc all could be playing roles * during her 2023 admission to [facility] she had frequent waxing/waning of her mental status * I cannot rule out recent seizures with subsequent altered MS but no seizures have been reported * cont to treat the recent UTI; hypernatremia improved with hypotonic fluids; plan to shut off IV fluids tonight * consider MRI brain (LUNCHEONETTE MANAGER shunt is compatible) if mental status does not return to baseline * reinforce healthy sleep-wake cycle * ammonia level wnl today; B12 wnl; TSH wnl * consider EEG if there are staring spells or other signs of seizure #Anemia - 2nd to severe iron deficiency - * ferritin <5 * no overt GI bleeding; ?vaginal bleeding/heavy menses? (is she post-menopause? could check LH/FSH) * during 2023 hospitalization she was given 4 doses of IV venofer * during same hospitalization in 2023 heme occult was negative * B12/folate both wnl * dose #1 of IV venofer 300mg - 07/05; dose #2 today; likely dose #3 tomorrow * Tx if Hb 7 or less * check fecal occult #hypernatremia - * improved * can d/c IV fluids later tonight and see how she does with PO intake * repeat BMP am #recent right-sided PEDIATRIC SOCIAL WORKER territory stroke - * cont asa/plavix for secondary prevention #recurrent UTIs - * started keflex 500mg BID on 06/27; thus, had received 8 days of such prior to presentation; now on IV cefepime with urine cx here showing 95332 CFU of yet to be identified organism; all very low colony count of nixon albicans * started diflucan 150mg daily on 07/02; thus, day #5 of such; 06/30 urine cx was obtained from [facility] -- 15,000 CFU of nixon albicans only * need to find out when her aguilar was last exchanged; typically the Rx of candiduria is exchange of the chronic aguilar; Rx with azoles is usually not needed but reasonable to continue Rx for total 7 days since she has already been started on such * sister Selin reports frequent UTIs while at the [facility] in [place] over the last year; consider methanamine prophylaxis (we had prescribed such in 2023) #Seizure d/o - * continue lacosamide BID * could consider EEG if altered MS persists or any signs of seizure #h/o DVT, IVC filter status - * Eliquis was stopped during recent hospital stay at [facility] as her PEDIATRIC SOCIAL WORKER stroke was thought to be thrombotic and her DVTs were several years ago * she is at high risk of DVT given bed-bound status * since no overt bleeding has been seen start lovenox 40mg daily for DVT proph #chronic aguilar catheter usage - * contact SNF in [place] to see when aguilar was last exchanged #h/o right-sided astrocytoma s/p resection years ago with subsequent encephalomalacia #LUNCHEONETTE MANAGER shunt status #hypothyroidism - * TFTs wnl * cont synthroid #functional paraplegia #morbid obesity - BMI ~40 PT/OT renetta requested I spoke with pt's sister Selin who provided verbal consent over the phone to place mid-line IV due to lack of IV access phone consent witnessed by pt's bedside nurse - Rosalina Worthington Selin expressed concern about the thickened fluids; Cassy already drinks very little, and the little she drinks the thickened liquids discourages her prior to the recent stroke she was on nectar thick liquids; post-stroke she remained on same consistency; to Selin's knowledge no video swallow was performed in [place] I contacted speech therapy who will perform swallow eval and likely video swallow tomorrow; appreciate their assistance Admission and Anticipated Discharge Date Admission Date: July 04, 2024 Subjective tele overnight wnl per staff had overall good night; slept decently this am she did not eat breakfast and lost her IV access did take AM meds during my visit she was resting in bed thought she was in a restaurant knew it was 2024 but otherwise was disoriented denied any specific complaints lunch arrived and she wanted to eat Review of Systems Review of Systems: CV - no chest pain pulm - no dyspnea GI - no abd pain or N/V Physical Exam Physical Exam: gen - lying comfortably in bed, NAD, disoriented neck - no obvious JVD mouth - MMM today heart - RRR, s1 s2, no murmur lungs - CTA b/l, decreased BS bases abd - soft NT ND BS+ ext - trace edema b/l feet/shins; pulses b/l feet 2+ skin - venous stasis changes b/l legs without cellulitis neuro - contracture of left hand; slight facial droop lower left face; can use right arm and right hand Results & Data Results & Data Vital Signs (Past 12 Hours) Vital Signs Temp Pulse Pulse Resp BP Pulse Ox O2 Del Method 07/06/24 11:24 36.8 C 87 20 123/68 91 Room Air 07/06/24 07:45 Room Air 07/06/24 07:40 36.7 C 79 16 123/78 94 Room Air 07/06/24 07:26 97 H 07/06/24 02:38 36.6 C 72 18 104/61 94 Room Air Laboratory Results Laboratory Results - last 24 hr 07/04/24 07/05/24 07/06/24 19:56 07:55 14:16 WBC 5.62 RBC 3.64 L Hgb 7.6 L Hct 27.1 L MCV 74.5 L MCH 20.9 L MCHC 28.0 L RDW Std Deviation 47.3 H RDW Coeff of Neo 17.7 H Plt Count 300 MPV 10.7 Immature Gran % (Auto) 1.4 Neut % (Auto) 67.9 Lymph % (Auto) 17.3 [place] % (Auto) 5.0 Eos % (Auto) 8.2 Baso % (Auto) 0.2 Neut # (Auto) 3.82 Lymph # (Auto) 0.97 L [place] # (Auto) 0.28 Eos # (Auto) 0.46 Baso # (Auto) 0.01 Immature Gran # (Auto) 0.08 Absolute Nucleated RBC 0.02 Nucleated RBC % (auto) 0.4 Hypochromasia Present Sodium 144 Potassium 3.8 Chloride 111 H Carbon Dioxide 29 Anion Gap 4 BUN 4 L Creatinine 0.49 L Est Cr Clr Drug Dosing 142.4 eGFR 111.24 BUN/Creatinine Ratio 8.2 L Glucose 94 Calcium 8.0 L Ammonia 19.0 Vitamin B12 508 Folate > 22.30 Blood Type A Positive Blood Type Recheck A Positive Antibody Screen NEGATIVE Crossmatch See Detail PG Care Time/CCT Total # of Minutes Spent Total Time Spent with Patient: Total time spent is greater than 50% in coordination of care (as documented) at patient's floor/unit and/or counseling patient: Coding Level of Care Code 56775 SUB INP/OBS CARE 3/50MIN Diagnoses Hemiparesis affecting left side as late effect of cerebrovascular accident I69.354 Acute metabolic encephalopathy G93.41 Acute hypernatremia E87.0 Catheter-associated urinary tract infection T83.511A; N39.0 Iron deficiency anemia D50.9 LUNCHEONETTE MANAGER (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) shunt status Z98.2 Vaginal bleeding N93.9 Anemia D64.9 Dysphagia R13.10 History of DVT (deep vein thrombosis) Z86.718 Hypothyroidism E03.9 Seizure disorder G40.909 History of CHF (congestive heart failure) Z86.79 History of meningioma Z86.018 History of astrocytoma of brain Z85.841
[2024-07-06] MEDS ORDERED: SODIUM CHLORIDE 0.9% 100 ML IV PRN (12:18)
[2024-07-06 14:33] LABS: Basophils # (auto) 0.01 K/uL (0.00-0.20); Basophils % (auto) 0.2 %; Eosinophils # (auto) 0.46 K/uL (0.00-0.50); Eosinophils % (auto) 8.2 %; Hematocrit (blood only) 27.1 % (37.0-47.0); Hemoglobin 7.6 g/dl (12.0-16.0); Immature Granulocytes # (auto) 0.08 K/uL (0.01-0.20); Immature Granulocytes % (auto) 1.4 %; Lymphocytes # (auto) 0.97 K/uL (1.20-3.40); Lymphocytes % (auto) 17.3 %; Mean Corpuscular Hemoglobin 20.9 pg (25.0-34.0); Mean Corpuscular Volume 74.5 fL (80.0-100.0); Mean Platelet Volume 10.7 fL (9.4-12.4); Monocytes # (auto) 0.28 K/uL (0.11-0.59); Neutrophils # (auto) 3.82 K/uL (1.40-6.50); Neutrophils % (auto) 67.9 %; Nucleated RBC # (auto) 0.02 K/uL (0.00-0.12); Nucleated RBC % (auto) 0.4 %; Platelet Count 300 K/uL (130-400); RDW Coefficient of Variation 17.7 % (11.5-14.5); RDW Standard Deviation 47.3 fL (36.4-46.3); Red Blood Count 3.64 M/uL (4.20-5.40); White Blood Count 5.62 K/ul (4.8-10.8)
[2024-07-06 14:49] LABS: BUN Creatinine Ratio 8.2 (10-20); Creatinine Clr Calc Pharmacy 142.4 ml/min; Potassium 3.8 mmol/L (3.5-5.1)
[2024-07-06 14:54] LABS: Hypochromasia Present
[2024-07-06 15:42] LABS: Folate (Folic Acid),Ser orPlas > 22.30 ng/ml (>5.38)
[2024-07-06 15:43] LABS: Vitamin B12 508 pg/ml (180-914)
[2024-07-06] MEDS: IRON SUCROSE 300 MG in SODIUM CHLORIDE 0.9% 250 ML IV ONE (16:02)
[2024-07-06] MEDS: ENOXAPARIN INJ 40 MG/0.4 ML SYR SQ ONE (21:57)
[2024-07-07 06:13] LABS: BUN Creatinine Ratio 7.5 (10-20); Calcium 7.7 mg/dl (8.6-10.3); Creatinine Clr Calc Pharmacy 174.5 ml/min; Potassium 3.3 mmol/L (3.5-5.1)
[2024-07-07] MEDS ORDERED: SODIUM CHLORIDE 0.9% 100 ML IV PRN (08:20)
[2024-07-07] MEDS: ACETAMINOPHEN 500 MG TAB PO ONE (10:12)
[2024-07-07] MEDS: POTASSIUM CHLORIDE CRTAB 20 MEQ TABCR PO SCH (10:13)
[2024-07-07] MEDS: ENOXAPARIN INJ 40 MG/0.4 ML SYR SQ SCH (10:14)
--- NOTE | 2024-07-07 12:41 | Fluoroscopy Report ---
MODIFIED BARIUM SWALLOW CLINICAL HISTORY: assess for aspiration COMPARISON STUDY: Video swallow May 28, 2023. FLUOROSCOPY TIME: 2 minutes. Ka,r: 11.6 mGy TECHNIQUE: A modified barium swallow was performed in conjunction with Speech Pathology. The patient ingested varying consistencies of barium containing material. Video fluoroscopy was performed. FINDINGS: No aspiration was identified with thin liquids. Trace penetration was noted with thin liqui ds. There was no aspiration with nectar thick liquids, pudding or cracker and pudding consistencies. Epiglottic inversion was normal. Laryngeal elevation was normal. IMPRESSION: 1. No tracheal aspiration. Intact swallowing mechanism. 2. Full recommendations by Speech pathology to follow. ACT 112: Negative or not required by law. Electronically signed by: Nick Dickerson M.D. 07/07/2024 12:39 PM
--- NOTE | 2024-07-07 14:18 | Hospitalist Progress Note ---
Date of Service July 07, 2024 Assessment & Plan (1) Hemiparesis affecting left side as late effect of cerebrovascular accident: (2) Acute metabolic encephalopathy: (3) Acute hypernatremia: (4) Catheter-associated urinary tract infection: (5) Iron deficiency anemia: (6) BINGO CASHIER (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) shunt status: (7) Vaginal bleeding: (8) Anemia: (9) Dysphagia: (10) History of DVT (deep vein thrombosis): (11) Hypothyroidism: (12) Seizure disorder: (13) History of CHF (congestive heart failure): (14) History of meningioma: (15) History of astrocytoma of brain: Plan 53-year-old female with very complex PMH including 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 Pt sent from [facility] in [place] to [facility] due to fatigue, weakness, lethargy, slurred speech (by report), and confusion. #acute metabolic encephalopathy - * improved; current MS seems similar to her mental status during her stay at [facility] in 2023 * hypernatremia, recent UTI, recent stroke, recent change in her living situation (switched from [facility] in [place] to [facility] in [place]), etc likely all contributing * during her 2023 admission to [facility] she had frequent waxing/waning of her mental status (had prolonged hospital stay - 6+ weeks) * I cannot rule out recent seizures with subsequent altered MS but no seizures h ave been reported by the SNF and nothing obvious while here * cont to treat the recent UTI; hypernatremia resolved * consider MRI brain (BINGO CASHIER shunt is compatible) if mental status does not return to baseline * CT head at admission - no acute findings; chronic findings from prior surgery, etc unchanged * reinforce healthy sleep-wake cycle * ammonia level wnl; B12 wnl; TSH wnl * consider EEG if there are staring spells or other signs of seizure #Anemia - 2nd to severe iron deficiency - * ferritin <5 * no overt GI bleeding; ?vaginal bleeding/heavy menses? (is she post-menopause? check LH/FSH) * during 2023 hospitalization she was given 4 doses of IV venofer * during same hospitalization in 2023 heme occult was negative * B12/folate both wnl * dose #1 of IV venofer 300mg - 07/05; dose #2 - 07/06; likely dose #3 tomorrow * Hb 7 today - transfuse 1 unit of blood * check fecal occult * repeat H/H in am * in ideal world patient would have EGD/colonoscopy - this was communicated to sister Selin; these could be done as outpatient * to be complete will send celiac screen * pt's sister Selin asks for heme referral so that Fe levels can be monitored and treated over time #hypernatremia - * resolved s/p hypotonic fluids; IVF d/c * repeat BMP am #recent right-sided OPERATIONS SUPPORT ANALYST territory stroke - * cont asa/plavix for secondary prevention * was hospitalized at [facility] in June for such #recurrent UTIs - * started keflex 500mg BID on 06/27; thus, had received 8 days of such prior to presentation; then placed on IV cefepime upon admission here; urine cx this admission without bacterial growth thus STOP cefepime * started diflucan 150mg daily on 07/02 as outpatient; thus, day #6 of such; 06/30 urine cx was obtained from [facility] -- 15,000 CFU of nixon albicans only * urine cx at [facility] this admission - c albicans, very low colony count; c glabrata - also very low colony count * Rx of candiduria is removal of aguilar; pt's sister Selin wanted a voiding trial anyway so will pull aguilar today * doubt c albicans/glabrata is causing TRUE cystitis but reasonable to Rx for 4 days more then stop all antifungals; antimicrobial stewardship pharmacist advised increasing diflucan to 400mg daily; will do this for 4 days then stop * sister Selin reports frequent UTIs while at the SNF in [place] over the last year; consider methanamine prophylaxis (we had prescribed such in 2023) #Seizure d/o - * continue lacosamide BID * could consider EEG if altered MS persists or any signs of seizure #h/o DVT, IVC filter status - * Eliquis was stopped during recent hospital stay at [facility] as her OPERATIONS SUPPORT ANALYST stroke was thought to be thrombotic and her DVTs were several years ago * she is at high risk of DVT given bed-bound status * since no overt bleeding has been seen start lovenox 40mg daily for DVT proph #chronic aguilar catheter usage - * foleys used for 6-9 months per her sister * Selin requested a voiding trial - will pull aguilar today and see how she does * bladder scans prn to ensure no retention #h/o right-sided astrocytoma s/p resection years ago with subsequent encephalomalacia #BINGO CASHIER shunt status - this is an MRI compatible BINGO CASHIER shunt #hypothyroidism - * TFTs wnl * cont synthroid #functional paraplegia #morbid obesity - BMI ~40 #mild hypokalemia - * replace - repeat BMP am #abnormal uterine bleeding - * pt's sister asks to check to see if patient is menopausal or not * reasonable to check LH/FSH * if LH/FSH are high then she is menopausal and reported vaginal bleeding is abnormal of course * records from [place] show she had a pelvic u/s there; this showed possible fibroid(s) but it was uncertain * if she has ongoing vaginal bleeding and she is indeed post-menopausal then wo uld send to credit collection associate post-d/c for w/u and Rx #h/o dysphagia - * speech consulted * video swallow completed * NO aspiration * thus, nectar thick liquids stopped * hopefully this will improve Cassy's overall liquid intake PT/OT renetta requested pt's sister Selin updated 07/05, 07/06, and again today by phone Admission and Anticipated Discharge Date Admission Date: July 04, 2024 Subjective like yesterday skipped breakfast but did each lunch during the visit today she was resting in bed she fell asleep towards the end of the visit she denied any pain in any location today she knew she was in the hospital, but could not tell me the year, town, or month slept ok last night passed video swallow today tele overnight wnl per staff - no vaginal bleeding; no overt GI bleeding Review of Systems Review of Systems: gen - "I feel ok" cv - no chest pain pulm - no dyspnea GI - no N/V/pain Physical Exam Physical Exam: gen - lying comfortably in bed, NAD, disoriented but no psychosis neck - no obvious JVD mouth - MMM heart - RRR, s1 s2, no murmur lungs - CTA b/l, decreased BS bases abd - soft NT ND BS+ ext - trace edema b/l feet/shins; pulses b/l feet 2+ skin - venous stasis changes b/l legs without cellulitis neuro - contracture of left hand; slight facial droop lower left face; can use right arm and right hand psych - oriented to person/place only Results & Data Results & Data Vital Signs (Past 12 Hours) Vital Signs Temp Pulse Pulse Resp BP BP Pulse Ox 07/07/24 13:20 36.5 C 74 22 145/62 H 94 07/07/24 13:05 36.5 C 75 20 152/70 H 94 07/07/24 12:49 36.3 C L 76 20 149/80 H 93 07/07/24 12:31 36.3 C L 76 18 145/78 H 94 07/07/24 09:30 36.7 C 65 20 139/73 93 07/07/24 06:50 75 18 114/74 93 07/07/24 05:53 95 O2 Del Method 07/07/24 13:20 07/07/24 13:05 07/07/24 12:49 07/07/24 12:31 Room Air 07/07/24 09:30 Room Air 07/07/24 06:50 Room Air 07/07/24 05:53 Room Air Laboratory Results Laboratory Results - last 48 hr 07/07/24 05:34 Hgb 7.0 L Hct 25.0 L Sodium 144 Potassium 3.3 L Chloride 111 H Carbon Dioxide 30 Anion Gap 3 BUN 3 L Creatinine 0.40 L Est Cr Clr Drug Dosing 174.5 eGFR 116.81 BUN/Creatinine Ratio 7.5 L Glucose 80 Calcium 7.7 L Diagnostic Findings Microbiology 07/04/24 22:04 Urine,Straight Cath Urine Culture - Preliminary Nixon glabrata - low colony count Nixon albicans - very low colony count PG Care Time/CCT Total # of Minutes Spent Total Time Spent with Patient: Total time spent is greater than 50% in coordination of care (as documented) at patient's floor/unit and/or counseling patient: Coding Level of Care Code 93449 SUB INP/OBS CARE 3/50MIN Diagnoses Hemiparesis affecting left side as late effect of cerebrovascular accident I69.354 Acute metabolic encephalopathy G93.41 Acute hypernatremia E87.0 Catheter-associated urinary tract infection T83.511A; N39.0 Iron deficiency anemia D50.9 BINGO CASHIER (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) shunt status Z98.2 Vaginal bleeding N93.9 Anemia D64.9 Dysphagia R13.10 History of DVT (deep vein thrombosis) Z86.718 Hypothyroidism E03.9 Seizure disorder G40.909 History of CHF (congestive heart failure) Z86.79 History of meningioma Z86.018 History of astrocytoma of brain Z85.841
[2024-07-07] MEDS: FLUCONAZOLE 100 MG TAB PO SCH (16:38)
[2024-07-07] MEDS: FLUCONAZOLE 50 MG TAB PO ONE (16:40)
[2024-07-07] MEDS: ACETAMINOPHEN 325 MG TAB PO PRN (20:26)
[2024-07-08] MEDS: SENNA 8.6 MG TAB PO PRN (10:09)
[2024-07-08 10:34] LABS: Hematocrit (blood only) 30.5 % (37.0-47.0); Hemoglobin 8.8 g/dl (12.0-16.0)
[2024-07-08 10:55] LABS: Calcium 8.2 mg/dl (8.6-10.3); Creatinine Clr Calc Pharmacy 139.6 ml/min
--- NOTE | 2024-07-08 14:51 | Hospitalist Progress Note ---
Date of Service July 08, 2024 Assessment & Plan (1) Hemiparesis affecting left side as late effect of cerebrovascular accident: (2) Acute metabolic encephalopathy: (3) Acute hypernatremia: (4) Catheter-associated urinary tract infection: (5) Iron deficiency anemia: (6) MEMBERSHIP ADMINISTRATOR (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) shunt status: (7) Vaginal bleeding: (8) History of DVT (deep vein thrombosis): (9) Hypothyroidism: (10) Seizure disorder: (11) History of CHF (congestive heart failure): (12) History of meningioma: (13) History of astrocytoma of brain: Plan 53-year-old female with very complex PMH including 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 Pt sent from [facility] in [place] to [facility] due to fatigue, weakness, lethargy, slurred speech (by report), and confusion. #acute metabolic encephalopathy - * improved and seems to be near the baseline I remember from 2023 * hypernatremia, recent UTI, recent stroke, recent change in her living situation (switched from [facility] in [place] to SNF in [place]), etc likely all contributing * CT head at admission - no acute findings; chronic findings from prior surgery, etc unchanged * reinforce healthy sleep-wake cycle * ammonia level wnl; B12 wnl; TSH wnl * consider EEG if there are staring spells or other signs of seizure - none to date #Anemia - 2nd to severe iron deficiency - * ferritin <5 * no overt GI bleeding; sister reports heavy vaginal bleeding - FSH/LH pending to see if post-menopausal. Possible fibroid on pelvic US done in [place]. Make EARLY CHILDHOOD ASSOCIATE TEACHER referral if postmenopausal bleeding * B12/folate both wnl. celiac labs pending * in ideal world patient would have EGD/colonoscopy - this was communicated to sister Selin; these could be done as outpatient * outpatient heme referral to monitor KOFI * treating with venofer this admission and transfused 1u RBC 4/2, Hg improved to 8.8 #hypernatremia - * resolved s/p hypotonic fluids; IVF d/c * sodium normal today #recent right-sided MECHANIC/WELDER territory stroke - * cont asa/plavix for secondary prevention, cont atorvastatin * was hospitalized at [facility] in June for such #recurrent UTIs - * started keflex 500mg BID on 06/27; thus, had received 8 days of such prior to presentation; then placed on IV cefepime upon admission here; urine cx this admission without bacterial growth thus STOP cefepime * started diflucan 150mg daily on 07/02 as outpatient; thus, day #6 of such; 06/30 urine cx was obtained from [facility] -- 15,000 CFU of nixon albicans only * urine cx at [facility] this admission - c albicans, very low colony count; c glabrata - also very low colony count * Rx of candiduria is removal of aguilar; aguilar removed 07/07 no retention so far * diflucan 400mg daily through 07/10 * consider resuming methenamine for frequent UTIs #Seizure d/o - * continue lacosamide BID #h/o DVT, IVC filter status - * Eliquis was stopped during recent hospital stay at [facility] as her MECHANIC/WELDER stroke was thought to be thrombotic and her DVTs were several years ago * she is at high risk of DVT given bed-bound status * lovenox 40mg daily for DVT proph #h/o right-sided astrocytoma s/p resection years ago with subsequent encephalomalacia #MEMBERSHIP ADMINISTRATOR shunt status - this is an MRI compatible MEMBERSHIP ADMINISTRATOR shunt #hypothyroidism - * TFTs wnl * cont synthroid #functional paraplegia #morbid obesity - BMI ~40 #mild hypokalemia - * replaced, K 4.0 #h/o dysphagia - * speech consulted, VFSS normal. Cleared for thin liquids PT/OT evals requested pt's sister Selin updated last 07/07 Admission and Anticipated Discharge Date Admission Date: July 04, 2024 Subjective Cassy woke up from nap and talked to me. Not having any pain or shortness of breath. Can use her right hand but can barely move the left one since stroke. Catheter has been out since yesterday. Got update from RN she has been eating and getting meds. Physical Exam 2 Physical Exam: Last 24h vitals reviewed GEN: no acute distress, sitting in bed. napping but awoke to voice HEENT: pupils equal, sclerae anicteric, moist MM RESP: normal WOB, CTAB CV: reg no mrg ABD: soft/nt/nd +BT : no aguilar SKIN: warm and dry, no generalized rashes NEURO: AOx person, partially to situation. Gave a few brief verbal responses. L facial droop and L hemiparesis. Can move RUE purposefully with antigravity Results & Data Results & Data Vital Signs (Past 12 Hours) Vital Signs Temp Pulse Pulse Resp BP Pulse Ox O2 Del Method 07/08/24 11:18 69 19 109/75 96 Room Air 07/08/24 08:59 78 16 149/81 H 97 Room Air 07/08/24 07:00 66 07/08/24 06:28 36.5 C 71 18 150/75 H 95 Room Air Laboratory Results 07/08/24 09:55 07/08/24 09:55 PG Care Time/CCT Total # of Minutes Spent Total Time Spent with Patient: Total time spent is greater than 50% in coordination of care (as documented) at patient's floor/unit and/or counseling patient: Coding Level of Care Code 17159 SUB INP/OBS CARE 2/35MIN Diagnoses Hemiparesis affecting left side as late effect of cerebrovascular accident I69.354 Acute metabolic encephalopathy G93.41 Acute hypernatremia E87.0 Catheter-associated urinary tract infection T83.511A; N39.0 Iron deficiency anemia D50.9 MEMBERSHIP ADMINISTRATOR (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) shunt status Z98.2 Vaginal bleeding N93.9 History of DVT (deep vein thrombosis) Z86.718 Hypothyroidism E03.9 Seizure disorder G40.909 History of CHF (congestive heart failure) Z86.79 History of meningioma Z86.018 History of astrocytoma of brain Z85.841
[2024-07-09] MEDS ORDERED: BETAMETHASONE VAL 0.1% CR 15 GM EXT PRN (12:29)
--- NOTE | 2024-07-09 15:01 | Hospitalist Progress Note ---
Date of Service July 09, 2024 Assessment & Plan (1) Hemiparesis affecting left side as late effect of cerebrovascular accident: (2) Acute metabolic encephalopathy: (3) Acute hypernatremia: (4) Catheter-associated urinary tract infection: (5) Iron deficiency anemia: (6) AGRISCIENCE TEACHER (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) shunt status: (7) Vaginal bleeding: (8) History of DVT (deep vein thrombosis): (9) Hypothyroidism: (10) Seizure disorder: (11) History of CHF (congestive heart failure): (12) History of meningioma: (13) History of astrocytoma of brain: Plan 53-year-old female with very complex PMH including 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 Pt sent from [facility] in [place] to [facility] [place] due to fatigue, weakness, lethargy, slurred speech, and confusion. she was significantly more anemic. She had been on Keflex and fluconazole for UTI prior to admission. She has had a chronic catheter because of difficulties with perineal care at her previous SNF before [facility]. #acute metabolic encephalopathy - * Resolved * hypernatremia, recent UTI, recent stroke, recent change in her living situation (switched from [facility] in [place] to SNF in [place]), etc likely all contributing * CT head at admission - no acute findings; chronic findings from prior surgery, etc unchanged * reinforce healthy sleep-wake cycle * ammonia level wnl; B12 wnl; TSH wnl #Anemia - 2nd to severe iron deficiency - probably vaginal bleeding exacerbated by antiplatelets/anticoagulants * ferritin <5 * no overt GI bleeding; sister reports heavy vaginal bleeding - FSH/LH pending to see if post-menopausal. Possible fibroid on pelvic US done in [place]. Make GROUND PRODUCTS DIRECTOR referral if postmenopausal bleeding, if she is premenopausal we will try oral contraceptives * B12/folate both wnl. celiac labs pending * in ideal world patient would have EGD/colonoscopy - this was communicated to sister Selin; these could be done as outpatient * outpatient heme referral to monitor KOFI, likely needs some chronic iron infusions until bleeding is addressed * treated with venofer this admission and transfused 1u RBC /, Hg improved to 8.8 * had brown stools in hospital #hypernatremia - * resolved s/p hypotonic fluids; IVF d/c * I think this was related to encephalopathy and also thickened liquids, which fortunately she is no longer requiring #recent right-sided WOODWORKING MACHINE FEEDER territory stroke - * cont asa/plavix for secondary prevention, cont atorvastatin. Typically DAPT is for a month following stroke then stop and continue ASA or Plavix alone * was hospitalized at [facility] in June for such, has neurology follow-up in August #recurrent UTIs - * started keflex 500mg BID on 06/27; thus, had received 8 days of such prior to presentation; then placed on IV cefepime upon admission here; urine cx this admission without bacterial growth thus STOP cefepime * started diflucan 150mg daily on 07/02 as outpatient; thus, had 6 days of such; 06/30 urine cx was obtained from [facility] -- 15,000 CFU of nixon albicans only * urine cx at [facility] this admission - c albicans, very low colony count; c glabrata - also very low colony count * Rx of candiduria is removal of aguilar; aguilar removed / no retention * discussed with ID pharmacist - treated with diflucan 400mg daily through 07/10 * resumed methenamine for prophylaxis against recurrent UTIs #Seizure d/o - * continue lacosamide BID #h/o DVT, IVC filter status - * Eliquis was stopped during recent hospital stay at [facility] as her WOODWORKING MACHINE FEEDER stroke was thought to be thrombotic and her DVTs were several years ago * once no longer on DAPT would be reasonable to have her on prophylaxis dose apixaban 2.5 mg bid, though will exacerbate her anemia #h/o right-sided astrocytoma s/p resection years ago with subsequent encephalomalacia #AGRISCIENCE TEACHER shunt status - this is an MRI compatible AGRISCIENCE TEACHER shunt #hypothyroidism - * TFTs wnl * cont synthroid #functional paraplegia #morbid obesity - BMI ~40 #mild hypokalemia - * replaced, K 4.0 #h/o dysphagia - * speech consulted, VFSS normal. Cleared for thin liquids Discussed with care coord - no transport today plan for return to her [facility] this weekend I updated her sister Selin by phone for 30 minutes today Admission and Anticipated Discharge Date Admission Date: July 04, 2024 Suresh Torres is wide-awake sitting up in bed and watching television. She is talking to me today and answering direct/straightforward questions. Overnight she was scratching at her backside causing excoriations of her buttock, yesterday she was scratching at her right lower ball and has also caused excoriation in that area. Physical Exam 2 Physical Exam: Last 24h vitals reviewed GEN: Sitting up awake and alert in bed HEENT: pupils equal, sclerae anicteric, moist MM RESP: normal WOB, CTAB CV: reg no mrg ABD: soft/nt/nd +BT : no aguilar SKIN: warm and dry, no generalized rashes. right lower ball is dressed in a foam dressing, reviewed photos from wound nurse she has shallow ulceration and a patch on her right lower ball with excoriation no surrounding erythema or drainage, she has several linear wounds on her buttock which are consistent with excoriations no surrounding erythema or drainage NEURO: AOx person, into basic situation. more talkative today. L facial droop and L hemiparesis. left upper extremity contracture Can move RUE purposefully with antigravity Results & Data Results & Data Vital Signs (Past 12 Hours) Vital Signs Temp Pulse Pulse Resp BP Pulse Ox O2 Del Method 07/09/24 10:35 36.3 C L 84 18 140/85 94 Room Air 07/09/24 09:00 Room Air 07/09/24 08:00 66 07/09/24 07:41 36.8 C 80 17 162/92 H 94 Room Air Laboratory Results 07/08/24 09:55 07/08/24 09:55 PG Care Time/CCT Total # of Minutes Spent Total Time Spent with Patient: I personally spent: 55 minutes today on clinical care activities including: reviewing chart notes and vital signs [x] discussion with critical care registered nurse examining and counseling the patient [x] counseling the patient's family writing orders documentation Coding Level of Care Code 63285 SUB INP/OBS CARE 3/50MIN Diagnoses Hemiparesis affecting left side as late effect of cerebrovascular accident I69.354 Acute metabolic encephalopathy G93.41 Acute hypernatremia E87.0 Catheter-associated urinary tract infection T83.511A; N39.0 Iron deficiency anemia D50.9 AGRISCIENCE TEACHER (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) shunt status Z98.2 Vaginal bleeding N93.9 History of DVT (deep vein thrombosis) Z86.718 Hypothyroidism E03.9 Seizure disorder G40.909 History of CHF (congestive heart failure) Z86.79 History of meningioma Z86.018 History of astrocytoma of brain Z85.841
[2024-07-09] MEDS: METHENAMINE HIPPURATE 1 GM TAB PO SCH (20:49)
[2024-07-09 21:48] LABS: Follicle Stimulating Hormone 21.37 IU/L
[2024-07-09 21:49] LABS: Luteinizing Hormone 6.33 IU/L
[2024-07-10 01:03] LABS: IgA Serum 300 mg/dL (47-310); Tis Trans IgA <1.0 U/mL
--- NOTE | 2024-07-10 16:24 | Hospitalist Progress Note ---
Date of Service July 10, 2024 Assessment & Plan (1) Hemiparesis affecting left side as late effect of cerebrovascular accident: (2) Acute metabolic encephalopathy: (3) Acute hypernatremia: (4) Catheter-associated urinary tract infection: (5) Iron deficiency anemia: (6) CARDIAC SONOGRAPHER (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) shunt status: (7) Vaginal bleeding: (8) History of DVT (deep vein thrombosis): (9) Hypothyroidism: (10) Seizure disorder: (11) History of CHF (congestive heart failure): (12) History of meningioma: (13) History of astrocytoma of brain: Plan 53-year-old female with very complex PMH including 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 Pt sent from [facility] in [place] to [facility] due to fatigue, weakness, lethargy, slurred speech, and confusion. she was significantly more anemic. She had been on Keflex and fluconazole for UTI prior to admission. She has had a chronic catheter because of difficulties with perineal care at her previous SNF before [facility]. #acute metabolic encephalopathy - * Resolved * hypernatremia, recent UTI, recent stroke, recent change in her living situation (switched from [facility] in [place] to SNF in [place]), etc likely all contributing * CT head at admission - no acute findings; chronic findings from prior surgery, etc unchanged * reinforce healthy sleep-wake cycle * ammonia level wnl; B12 wnl; TSH wnl #Anemia - 2nd to severe iron deficiency - probably vaginal bleeding exacerbated by antiplatelets/anticoagulants * ferritin <5 * no overt GI bleeding; sister reports heavy vaginal bleeding - FSH is 20 which is in the postmenopausal range or late in transition. Unable to adequately communicate symptoms or assess menstrual pattern. More specialized labs may be helpful. Possible fibroid on pelvic US done in [place]. Please make referral to gynecology. * B12/folate both wnl. celiac panel negative * in ideal world patient would have EGD/colonoscopy - this was communicated to sister Selin; these could be done as outpatient * outpatient heme referral to monitor KOFI, likely needs some chronic iron infusions until bleeding is addressed * treated with venofer this admission and transfused 1u RBC /, Hg improved to 8.8 * had brown stools in hospital #hypernatremia - * resolved s/p hypotonic fluids; IVF d/c * I think this was related to encephalopathy and also thickened liquids, which fortunately she is no longer requiring #recent right-sided CORPORATE DIRECTOR OF HUMAN RESOURCES territory stroke - * cont asa/plavix for secondary prevention, cont atorvastatin. Typically DAPT is for a month following stroke then stop and continue ASA or Plavix alone * was hospitalized at [facility] in June for such, has neurology follow-up in August #recurrent UTIs - * started keflex 500mg BID on 06/27; thus, had received 8 days of such prior to presentation; then placed on IV cefepime upon admission here; urine cx this admission without bacterial growth thus STOP cefepime * started diflucan 150mg daily on 07/02 as outpatient; thus, had 6 days of such; 06/30 urine cx was obtained from [facility] -- 15,000 CFU of nixon albicans only * urine cx at [facility] this admission - c albicans, very low colony count; c glabrata - also very low colony count * Rx of candiduria is removal of aguilar; aguilar removed 07/07 no retention * discussed with ID pharmacist - treated with diflucan 400mg daily through 07/10 * resumed methenamine for prophylaxis against recurrent UTIs #Seizure d/o - * continue lacosamide BID #h/o DVT, IVC filter status - * Eliquis was stopped during recent hospital stay at [facility] as her CORPORATE DIRECTOR [employer] H[employer] stroke was thought to be thrombotic and her DVTs were several years ago * once no longer on DAPT would be reasonable to have her on prophylaxis dose apixaban 2.5 mg bid, though will exacerbate her anemia #h/o right-sided astrocytoma s/p resection years ago with subsequent encephalomalacia #CARDIAC SONOGRAPHER shunt status - this is an MRI compatible CARDIAC SONOGRAPHER shunt #hypothyroidism - * TFTs wnl * cont synthroid #functional paraplegia #morbid obesity - BMI ~40 #mild hypokalemia - * replaced, K 4.0 #h/o dysphagia - * speech consulted, VFSS normal. Cleared for thin liquids RLE and buttock excoriations - result of scratching, which is a chronic problem. Wound nurse consulted and made wound care recs. Updated her sister Selin at length 4/ Ready for discharge back to [facility] where she lives Discussed with care coord - still no transport available Admission and Anticipated Discharge Date Admission Date: July 04, 2024 Subjective doing okay today no complaints ate half of breakfast doing fine without Aguilar catheter awake and alert for me Physical Exam Physical Exam: Last 24h vitals reviewed GEN: awake sitting in bed HEENT: pupils equal, sclerae anicteric, moist MM RESP: normal WOB, CTAB CV: reg no mrg ABD: soft/nt/nd +BT : no aguilar SKIN: warm and dry, no generalized rashes. right ball is dressed NEURO: AOx person, hospital, basic situation. L facial droop and L hemiparesis. moves right arm purposefully with at least antigravity. left upper extremity contracture Can move RUE purposefully with antigravity Results & Data Results & Data Vital Signs (Past 12 Hours) Vital Signs Temp Pulse Resp BP Pulse Ox O2 Del Method 07/10/24 15:47 73 18 161/87 H 92 Room Air 07/10/24 11:23 36.7 C 75 18 128/78 97 Room Air 07/10/24 07:48 36.8 C 65 18 143/93 H 96 Room Air 07/10/24 07:42 Room Air PG Care Time/CCT Total # of Minutes Spent Total Time Spent with Patient: Total time spent is greater than 50% in coordination of care (as documented) at patient's floor/unit and/or counseling patient: Coding Level of Care Code 29793 SUB INP/OBS CARE 2/35MIN Diagnoses Hemiparesis affecting left side as late effect of cerebrovascular accident I69.354 Acute metabolic encephalopathy G93.41 Acute hypernatremia E87.0 Catheter-associated urinary tract infection T83.511A; N39.0 Iron deficiency anemia D50.9 CARDIAC SONOGRAPHER (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) shunt status Z98.2 Vaginal bleeding N93.9 History of DVT (deep vein thrombosis) Z86.718 Hypothyroidism E03.9 Seizure disorder G40.909 History of CHF (congestive heart failure) Z86.79 History of meningioma Z86.018 History of astrocytoma of brain Z85.841
--- NOTE | 2024-07-10 16:36 | Discharge Summary ---
Discharge Summary Date of Service July 10, 2024 Principal Dx & Hospital Course #1 = Principal Diagnosis (1) Hemiparesis affecting left side as late effect of cerebrovascular accident: (2) Acute metabolic encephalopathy: (3) Acute hypernatremia: (4) Catheter-associated urinary tract infection: (5) Iron deficiency anemia: (6) RN BIRTHING (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) shunt status: (7) Vaginal bleeding: (8) History of DVT (deep vein thrombosis): (9) Hypothyroidism: (10) Seizure disorder: (11) History of CHF (congestive heart failure): (12) History of meningioma: (13) History of astrocytoma of brain: Plan 53-year-old female with very complex PMH including 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 Pt sent from [facility] in [place] to [facility] due to fatigue, weakness, lethargy, slurred speech, and confusion. she was significantly more anemic. She had been on Keflex and fluconazole for UTI prior to admission. She has had a chronic catheter because of difficulties with perineal care at her previous SNF before [facility]. #acute metabolic encephalopathy - * Resolved * hypernatremia, recent UTI, recent stroke, recent change in her living situation (switched from [facility] in [place] to [facility] in [place]), etc likely all contributing * CT head at admission - no acute findings; chronic findings from prior surgery, etc unchanged * reinforce healthy sleep-wake cycle * ammonia level wnl; B12 wnl; TSH wnl #Anemia - 2nd to severe iron deficiency - probably vaginal bleeding exacerbated by antiplatelets/anticoagulants * ferritin <5 * no overt GI bleeding; sister reports heavy vaginal bleeding - FSH is 20 which is in the postmenopausal range or late in transition. Unable to adequately communicate symptoms or assess menstrual pattern. More specialized labs may be helpful. Possible fibroid on pelvic US done in [place]. Please make referral to gynecology. Her sister needs to be present for this office visit. * B12/folate both wnl. celiac panel negative * in ideal world patient would have EGD/colonoscopy - this was communicated to sister Selin; these could be done as outpatient * outpatient heme referral to monitor KOFI, likely needs some chronic iron infusions until bleeding is addressed * treated with venofer this admission and transfused 1u RBC 07/07, Hg improved to 8.8 * had brown stools in hospital #hypernatremia - * resolved s/p hypotonic fluids; IVF d/c * I think this was related to encephalopathy and also thickened liquids, which fortunately she is no longer requiring #recent right-sided DIRECT MARKETING REPRESENTATIVE territory stroke - * cont asa/plavix for secondary prevention, cont atorvastatin. Typically DAPT is for a month following stroke then stop and continue ASA or Plavix alone * was hospitalized at [facility] in June for such, has neurology follow-up in August #recurrent UTIs - * started keflex 500mg BID on 06/27; thus, had received 8 days of such prior to presentation; then placed on IV cefepime upon admission here; urine cx this admission without bacterial growth thus STOP cefepime * started diflucan 150mg daily on 07/02 as outpatient; thus, had 6 days of such; 06/30 urine cx was obtained from [facility] -- 15,000 CFU of nixon albicans only * urine cx at [facility] this admission - c albicans, very low colony count; c glabrata - also very low colony count * Rx of candiduria is removal of aguilar; aguilar removed 07/07 no retention * discussed with ID pharmacist - treated with diflucan 400mg daily through 07/10 * resumed methenamine for prophylaxis against recurrent UTIs #Seizure d/o - * continue lacosamide BID #h/o DVT, IVC filter status - * Eliquis was stopped during recent hospital stay at [facility] as her DIRECT MARKETING REPRESENTATIVE stroke was thought to be thrombotic and her DVTs were several years ago * once no longer on DAPT would be reasonable to have her on prophylaxis dose apixaban 2.5 mg bid, though will exacerbate her anemia #h/o right-sided astrocytoma s/p resection years ago with subsequent encephalomalacia #RN BIRTHING shunt status - this is an MRI compatible RN BIRTHING shunt #hypothyroidism - * TFTs wnl * cont synthroid #functional paraplegia - bed/wheelchair bound #morbid obesity - BMI ~40 #mild hypokalemia - * replaced, K 4.0 #h/o dysphagia - * speech consulted, VFSS normal. Cleared for thin liquids RLE and buttock excoriations - result of scratching, which is a chronic problem. Wound nurse consulted and made wound care recs. Updated her sister Selin at length 07/09 Ready for discharge back to [facility] where she lives Discussed with care coord - still no transport available Admission HPI Per Admitting Provider The patient is a 53-year-old female with a past medical history including inability to care for self, catheter associated urine tract infections, abnormal cortisol level, daytime somnolence, adrenal insufficiency, candidal intertrigo, depression, morbid obesity, history of DVT, hypothyroidism, RN BIRTHING shunt status, seizure disorder, CHF, GERD without esophagitis, history of epilepsy, ambulatory dysfunction, and chronic lower extremity swelling.The patient is sent to the emergency department at [facility] from [facility] in [place], after being discharged from [facility] to that facility yesterday. Family noted that the patient was significantly weaker today, while she is presently being treated for urinary tract infection with Keflex, and they felt that she needed an evaluation to also further assess issues with slurred speech and lethargy. The patient has a history of a stroke 4 weeks ago, with residual left hemiparesis, has a chronic indwelling Aguilar catheter, and has had an issue with ongoing anemia, likely secondary to vaginal bleeding. They report that she presently is on fluconazole for a yeast urinary tract infection. CT scan of head shows a right-sided craniotomy, with ventriculostomy catheter terminating near the foramen of Benitez. From the ED patient received normal saline 1 L fluid bolus. She was then referred for evaluation and treatment to the [facility] hospitalist service. Discharge Exam Last 24h vitals reviewed GEN: awake sitting in bed HEENT: pupils equal, sclerae anicteric, moist MM RESP: normal WOB, CTAB CV: reg no mrg ABD: soft/nt/nd +BT : no aguilar SKIN: warm and dry, no generalized rashes. right ball is dressed NEURO: AOx person, hospital, basic situation. L facial droop and L hemiparesis. moves right arm purposefully with at least antigravity. left upper extremity contracture Can move RUE purposefully with antigravity Discharge Plan Discharge Items Patient Disposition: Transfer [facility] Fac Reason For Visit: HYPERNATREMIA, SYMPTOMATIC ANEMIA Discharge Diagnosis: acute metabolic encephalopathy, hypernatremia, anemia, candiduria Activity: Resume your previous activity Non-emergency contact: Primary Care Provider Call non-emergency contact if: you have any medication questions, your symptoms worsen and you have a fever Follow-up/Referrals: Ilsa Braswell D.O. [Primary Care Provider] - Diet: Regular Diet Texture: Dental soft (bite-sized) Diet Comment: thin liquids Addtl Attending Provider Instructions: Mobilize in chair, wheelchair, activities as much as possible CBC weekly, monitor iron stores Outpatient hematology referral for management of severe iron deficiency anemia - transfused and given venofer this admission FSH, LH pending - if postmenopausal please make referral to gynecology for evaluation of uterine bleeding if premenopausal trial of OCPs for heavy periods and symptomatic iron deficiency anemia Outpatient GI referral for iron deficiency anemia Aguilar catheter was removed, completed course of fluconazole for candiduria Methenamine restarted for UTI prevention Stop oxybutynin because of frequent UTIs She had ST reevaluation and passed VFSS for thin liquids Try upgrading diet from minced/moiced to bite sized for better palatability No straws Upright for meals, monitor for pocketing Pending Studies at Discharge: Yes (FSH and LH) Stand-Alone Forms: [facility] Skilled Items Patient informed of condition?: Yes DNR: No Discharge Level of Care: Skilled Communicable Disease: No Discharge Prognosis: Improving Lines: None Urinary Catheter: No Medications and DC Order Prescriptions: New fexofenadine [Wal-Fex Allergy] 60 mg Tablet 60 mg PO BID Qty: 0 0RF betamethasone valerate 0.1 % Cream 1 applic EXT BID PRNQty: 0 0RF methenamine hippurate 1 gram Tablet 1 g PO BID Qty: 0 0RF Continued magnesium hydroxide [Milk of Magnesia] 400 mg/5 mL Suspension 2,400 mg PO DAILY PRN (Reason: Constipation) Rx Instructions: If no BM, administer on the morning of the 3rd day acetaminophen [Tylenol] 325 mg Tablet 650 mg PO Q6H PRN (Reason: PAIN/FEVER) Qty: 30 0RF bisacodyl [Dulcolax (bisacodyl)] 10 mg Suppository 10 mg MD DAILY PRN (Reason: Constipation) Qty: 5 0RF Rx Instructions: If no BM on the evening of the 3rd day with no BM Enema 19-7 gram/118 mL Enema 118 ml MD DAILY PRN (Reason: Constipation) Qty: 1 0RF Rx Instructions: Administer on the morning of the 4th day without a BM. If no results from enema, notify aspirin 81 mg tablet,chewable 81 mg PO DAILY Qty: 90 0RF folic acid 1 mg Tablet 1 mg PO DAILY Qty: 30 0RF lacosamide 100 mg tablet 100 mg PO Q12H Qty: 60 0RF atorvastatin 80 mg Tablet 80 mg PO PM fluoxetine 10 mg Tablet 30 mg PO DAILY clopidogrel [Plavix] 75 mg Tablet 75 mg PO DAILY famotidine [Pepcid] 20 mg Tablet 20 mg PO DAILY hydroxyzine HCl 25 mg Tablet 25 mg PO Q6H PRN (Reason: Itching) nystatin [Nystop] 100,000 unit/gram Powder 1 applic TOPICAL BID Rx Instructions: APPLY UNDER BREASTS, ABD FOLDS, UNDER ARMS/ USE PRN IN GROIN NEEDED. albuterol sulfate 90 mcg/actuation Hfa Aerosol Inhaler 2 puff INHALATION Q6H PRN (Reason: Wheezing) menthol-zinc oxide [Calmoseptine] 0.44-20.6 % Ointment 1 applic TOPICAL TID Rx Instructions: APPLY TO BUTTOCKS/USE PRN IF NEEDED. Trelegy Ellipta 100-62.5-25 mcg Blister With Device 1 inh INHALATION DAILY sennosides [Senokot] 8.6 mg tablet 17.2 mg PO Q24H PRN (Reason: Constipation) potassium chloride 10 mEq capsule, extended release 10 meq PO DAILY levothyroxine 25 mcg tablet 25 mcg PO DAILYBB magnesium oxide 400 mg (241.3 mg magnesium) tablet 400 mg PO QAM Discontinued oxybutynin chloride 15 mg Tablet Extended Release 24hr 15 mg PO DAILY fluconazole [Diflucan] 150 mg Tablet 150 mg PO QPM Rx Instructions: STARTED 07/02/24 FOR 7 DAYS, ENDS 07/08/24 cephalexin 500 mg Tablet 500 mg PO Q12H Rx Instructions: STARTED 06/28/24 FOR 7 DAYS, ENDS 07/04/24 WITH PM DOSE Admission Data Admit Date/Time: 07/04/24 22:12 Attending Provider: Hattie Muro Admit Provider: Cal Braga Primary Care Provider: Ilsa Braswell Other Providers: Cal Braga Hospital Stay Data Consultations 07/04/24 20:02 ED Decision to Admit Stat Diagnostic Imagining Performed 07/04/24 18:47 CT head/brain wo con Stat 07/07/24 10:30 FL video swallow Routine Pending Results Patient Have Any Pending Studies at Discharge: Yes (FSH and LH) Discharge Instructions Given to Patient (Per Discharging Provider) Mobilize in chair, wheelchair, activities as much as possible CBC weekly, monitor iron stores Outpatient hematology referral for management of severe iron deficiency anemia - transfused and given venofer this admission FSH, LH pending - if postmenopausal please make referral to gynecology for evaluation of uterine bleeding if premenopausal trial of OCPs for heavy periods and symptomatic iron deficiency anemia Outpatient GI referral for iron deficiency anemia Aguilar catheter was removed, completed course of fluconazole for candiduria Methenamine restarted for UTI prevention Stop oxybutynin because of frequent UTIs She had ST reevaluation and passed VFSS for thin liquids Try upgrading diet from minced/moiced to bite sized for better palatability No straws Upright for meals, monitor for pocketing Total Time Total Time Spent Total Time Spent (In Minutes): I personally spent: 55 today on clinical care activities including: reviewing chart notes and vital signs discussion with direct care supervisor examining the patient counseling the patient's family writing prescriptions, discharge instructions, orders documentation Coding Level of Care Code 05340 INP/OBS DISCH >30 MIN Diagnoses Hemiparesis affecting left side as late effect of cerebrovascular accident I69.354 Acute metabolic encephalopathy G93.41 Acute hypernatremia E87.0 Catheter-associated urinary tract infection T83.511A; N39.0 Iron deficiency anemia D50.9 RN BIRTHING (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) shunt status Z98.2 Vaginal bleeding N93.9 History of DVT (deep vein thrombosis) Z86.718 Hypothyroidism E03.9 Seizure disorder G40.909 History of CHF (congestive heart failure) Z86.79 History of meningioma Z86.018 History of astrocytoma of brain Z85.841
[2024-07-10 18:01] LABS: Hematocrit (blood only) 33.7 % (37.0-47.0); Hemoglobin 9.6 g/dl (12.0-16.0); Mean Corpuscular Hgb Conc 28.5 g/dL (32.0-36.0); Mean Corpuscular Volume 77.3 fL (80.0-100.0); Platelet Count 335 K/uL (130-400); RDW Coefficient of Variation 20.4 % (11.5-14.5); RDW Standard Deviation 51.8 fL (36.4-46.3); Red Blood Count 4.36 M/uL (4.20-5.40); White Blood Count 5.55 K/ul (4.8-10.8)
[2024-07-11 03:54] VITALS: BP 133/83; PULSE 73; RESP 19; TEMP 97.9; O2SAT 95
--- NOTE | 2024-07-11 10:52 | Communication Note ---
Date of Service: July 11, 2024 Cassy discharged this AM shortly before I went to see her when transportation to her [facility] became available. No events overnight. Clinically stable, vital s igns normal. Continue plan of care per my discharge summary last night.
== END 2024-07-11 10:00 | DRG 698 ==
LOC: ED 18:34 → SUATTDRO 22:12 → 2E 22:12